=== PATIENT | male | born 1950 | race Caucasian/White ===

== ENCOUNTER → 2016-07-29 | Outpatient (CLI) | payer BC ==
[2016-07-29 08:45] LABS: CH 30.2; CHCM 33.8; HCT 42.7 % (39.0-53.0); HDW 2.89; HGB 14.2 gm/dL (13.0-17.5); MCH 29.9 pg (25.0-35.0); MCHC 33.2 g/dL (31.0-37.0); RBC 4.74 m/uL (4.30-5.90); WBC 8.2 k/uL (3.8-10.6)
[2016-07-29 09:46] LABS: ALT 43 U/L (21-72); AST 23 U/L (17-59); Alkaline Phosphatase 100 U/L (38-126); Blood Urea Nitrogen 28 mg/dL (9-20); Calcium 9.2 mg/dL (8.4-10.2); Carbon Dioxide 27 mmol/L (22-30); Chloride 101 mmol/L (98-107); Cholesterol 140 mg/dL (<200); Glucose 153 mg/dL (74-99); HDL Cholesterol 36 mg/dL (40-60); Non-African American GFR(MDRD) >60 (>60 ml/min/1.73 sqM); Potassium 4.5 mmol/L (3.5-5.1); Total Bilirubin 0.6 mg/dL (0.2-1.3); Total Protein 6.6 g/dL (6.3-8.2); Triglycerides 231 mg/dL (<150)
[2016-07-29 10:03] LABS: Erythrocyte Sedimentation Rate 6 mm/hr (0-15)
[2016-07-29 10:18] LABS: Prostate Specific Antigen 0.35 ng/mL (0.00-4.00)
[2016-07-29 10:24] LABS: Anion Gap 12 mmol/L; Sodium 140 mmol/L (137-145)
[2016-07-29 13:52] LABS: Hemoglobin A1C 7.5 % (4.2-6.1)
== END | disposition home or self-care (01) ==
LOC: LABWHC1 07:02
PROVIDERS: ATTEND Internal Medicine
DX: E11.9 Type 2 diabetes mellitus without complications (principal); I10 Essential (primary) hypertension
CPT/HCPCS: 36415; 80053; 80061; 83036; 84153; 84443; 85027; 85652

== ENCOUNTER → 2016-12-25 | Outpatient (CLI) | payer MEDICARE, BC ==
[2016-12-25 07:34] LABS: CHCM 33.1; HDW 2.93; HGB 14.1 gm/dL (13.0-17.5); MCH 29.3 pg (25.0-35.0); MCHC 32.1 g/dL (31.0-37.0); MCV 91.4 fL (80.0-100.0); Mean Platelet Volume 7.1; RBC 4.82 m/uL (4.30-5.90); RDW 15.6 % (11.5-15.5); WBC 7.3 k/uL (3.8-10.6)
[2016-12-25 11:46] LABS: ALT 50 U/L (21-72); AST 26 U/L (17-59); Alkaline Phosphatase 95 U/L (38-126); Anion Gap 10 mmol/L; Blood Urea Nitrogen 26 mg/dL (9-20); Calcium 9.3 mg/dL (8.4-10.2); Carbon Dioxide 25 mmol/L (22-30); Chloride 104 mmol/L (98-107); Cholesterol 145 mg/dL (<200); Glucose 159 mg/dL (74-99); HDL Cholesterol 34 mg/dL (40-60); Non-African American GFR(MDRD) >60 (>60 ml/min/1.73 sqM); Potassium 4.4 mmol/L (3.5-5.1); Sodium 139 mmol/L (137-145); Total Bilirubin 0.5 mg/dL (0.2-1.3); Total Protein 6.7 g/dL (6.3-8.2); Uric Acid 5.1 mg/dL (3.5-8.5)
[2016-12-25 12:08] LABS: Prostate Specific Antigen 0.32 ng/mL (0.00-4.00)
[2016-12-25 13:34] LABS: Erythrocyte Sedimentation Rate 8 mm/hr (0-15)
== END | disposition home or self-care (01) ==
LOC: LABWHC1 06:36
PROVIDERS: ATTEND Internal Medicine
DX: E78.2 Mixed hyperlipidemia (principal); E55.9 Vitamin D deficiency, unspecified; E11.9 Type 2 diabetes mellitus without complications; I10 Essential (primary) hypertension; Z12.5 Encounter for screening for malignant neoplasm of prostate
CPT/HCPCS: 36415; 80053; 80061; 82306; 84153; 84443; 84550; 85027; 85652

== ENCOUNTER → 2017-08-06 | Outpatient (CLI) | payer MEDICARE, BC ==
--- NOTE | 2017-08-06 07:21 | XR ---
EXAMINATION TYPE: XR forearm RT DATE OF EXAM: 08/06/2017 COMPARISON: NONE HISTORY: 66 year-old male right forearm pain, lump, proximal portion TECHNIQUE: 2 views FINDINGS: Degenerative change at the first CMC, first MCP, and triscaphe joints. Subtle lucency noted at the ul valdez proximal aspect of the lunate bone, possibly related to ulnar impaction syndrome. No significant elbow joint effusion. No acute fracture or dislocation. No periostitis or osteolysis. Mild degenerati ve spurring is noted at the elbow. IMPRESSION: 1. No acute osseous abnormality seen. 2. Degenerative changes at the base of the thumb and possible underlying ulnar impaction syndrome. 3. Mild degenerative spurring at the elbow.
[2017-08-06 09:18] LABS: Albumin 4.4 g/dL (3.5-5.0); Calcium 9.7 mg/dL (8.4-10.2); Phosphorus 4.2 mg/dL (2.5-4.5)
[2017-08-06 09:49] LABS: Prostate Specific Antigen 0.45 ng/mL (0.00-4.00)
== END | disposition home or self-care (01) ==
LOC: LABWHC1 06:35
PROVIDERS: ATTEND Internal Medicine
DX: M19.021 Primary osteoarthritis, right elbow (principal); M18.11 Unilateral primary osteoarthritis of first carpometacarpal joint, right hand; I25.10 Atherosclerotic heart disease of native coronary artery without angina pectoris; E11.9 Type 2 diabetes mellitus without complications
CPT/HCPCS: 36415; 80061; 80069; 83036; 84153; 84443

== ENCOUNTER → 2017-11-02 | Outpatient (CLI) | payer MEDICARE, BC ==
[2017-11-02 07:25] LABS: HCT 41.4 % (39.0-53.0); HGB 13.7 gm/dL (13.0-17.5); MCH 29.7 pg (25.0-35.0); MCHC 33.1 g/dL (31.0-37.0); MCV 89.8 fL (80.0-100.0); Mean Platelet Volume 6.6; Platelet Count 301 k/uL (150-450); RBC 4.61 m/uL (4.30-5.90); RDW 14.6 % (11.5-15.5)
[2017-11-02 08:35] LABS: Erythrocyte Sedimentation Rate 11 mm/hr (0-15)
[2017-11-02 10:03] LABS: Albumin 4.1 g/dL (3.5-5.0); Calcium 9.5 mg/dL (8.4-10.2); Potassium 3.9 mmol/L (3.5-5.1); Total Bilirubin 0.6 mg/dL (0.2-1.3); Total Protein 6.8 g/dL (6.3-8.2)
[2017-11-02 10:32] LABS: Prostate Specific Antigen 0.47 ng/mL (0.00-4.00)
== END | disposition home or self-care (01) ==
LOC: LABWHC1 06:41
PROVIDERS: ATTEND Internal Medicine
DX: E11.9 Type 2 diabetes mellitus without complications (principal); E78.5 Hyperlipidemia, unspecified
CPT/HCPCS: 36415; 80053; 80061; 84153; 84443; 85027; 85652

== ENCOUNTER → 2018-06-22 | Outpatient (CLI) | payer MEDICARE, BC ==
[2018-06-22 08:54] LABS: Basophils # (A) 0.1 k/uL (0-0.2); Basophils % (A) 1 %; Eosinophils # (A) 0.1 k/uL (0-0.7); Eosinophils % (A) 1 %; HCT 46.9 % (39.0-53.0); HGB 15.2 gm/dL (13.0-17.5); Lymphocytes % (A) 26 %; MCH 28.9 pg (25.0-35.0); MCHC 32.4 g/dL (31.0-37.0); MCV 89.2 fL (80.0-100.0); Mean Platelet Volume 6.4; Monocytes # (A) 0.4 k/uL (0-1.0); Monocytes % (A) 5 %; Neutrophils # (A) 4.9 k/uL (1.3-7.7); Neutrophils % (A) 65 %; Platelet Count 345 k/uL (150-450); RBC 5.26 m/uL (4.30-5.90); RDW 14.2 % (11.5-15.5); WBC 7.6 k/uL (3.8-10.6)
[2018-06-22 12:10] LABS: Erythrocyte Sedimentation Rate 8 mm/hr (0-15)
[2018-06-22 17:41] LABS: Albumin 4.5 g/dL (3.80-4.90); Albumin/Globulin Ratio 2.14 (1.60-3.17); Anion Gap 10.4 mmol/L (4.00-12.00); Calcium 9.7 mg/dL (8.7-10.3); Carbon Dioxide 27.6 mmol/L (21.6-31.8); Globulin 2.1 g/dL (1.6-3.3); Potassium 4.3 mmol/L (3.5-5.5); Total Bilirubin 0.6 mg/dL (0.2-1.2); Total Protein 6.6 g/dL (6.2-8.2); Uric Acid 6.1 mg/dL (3.7-8.7)
[2018-06-22 17:42] LABS: LDL Cholesterol,Calculated 36.2 mg/dL (0.0-131.0); VLDL Calculation 64.8 mg/dL (5.00-40.00)
[2018-06-22 17:48] LABS: Vitamin D 25 Hydroxy 27.3 ng/mL (30.0-100.0)
[2018-06-22 18:02] LABS: Hepatitis C IgG Antibody Non-Reactive (Non-Reactive)
[2018-06-22 20:28] LABS: Hemoglobin A1C 8.3 % (4.0-6.0)
== END | disposition home or self-care (01) ==
LOC: LABWHC1 08:03
PROVIDERS: ATTEND Internal Medicine
DX: E11.65 Type 2 diabetes mellitus with hyperglycemia (principal); E78.2 Mixed hyperlipidemia; E55.9 Vitamin D deficiency, unspecified; I10 Essential (primary) hypertension; R51 Headache; Z12.5 Encounter for screening for malignant neoplasm of prostate; Z13.0 Encounter for screening for diseases of the blood and blood-forming organs and certain disorders involving the immune mechanism
CPT/HCPCS: 36415; 80053; 80061; 82306; 83036; 84153; 84443; 84550; 85025; 85652; 86707; 86803

== ENCOUNTER → 2018-12-23 | Outpatient (CLI) | payer MEDICARE, BC ==
[2018-12-23 08:39] LABS: HCT 43.5 % (39.0-53.0); MCH 30.4 pg (25.0-35.0); MCHC 34.5 g/dL (31.0-37.0); MCV 88.1 fL (80.0-100.0); Mean Platelet Volume 5.8; Platelet Count 332 k/uL (150-450); RBC 4.93 m/uL (4.30-5.90); WBC 7.3 k/uL (3.8-10.6)
[2018-12-23 10:56] LABS: Erythrocyte Sedimentation Rate 8 mm/hr (0-15)
[2018-12-23 12:00] LABS: African American GFR (CKD) 72.1 (60.0-200.0); Albumin 4.5 g/dL (3.80-4.90); Albumin/Globulin Ratio 2.25 (1.60-3.17); Anion Gap 10.6 mmol/L (4.00-12.00); BUN/Creat Ratio 26.67 Ratio (12.00-20.00); Calcium 9.8 mg/dL (8.7-10.3); Carbon Dioxide 26.4 mmol/L (21.6-31.8); Potassium 4.1 mmol/L (3.5-5.5); Total Bilirubin 0.6 mg/dL (0.2-1.2); Total Protein 6.5 g/dL (6.2-8.2)
[2018-12-23 14:59] LABS: Hemoglobin A1C 7.5 % (4.0-6.0)
== END | disposition home or self-care (01) ==
LOC: LABWHC1 06:39
PROVIDERS: ATTEND Internal Medicine
DX: E78.2 Mixed hyperlipidemia (principal); I10 Essential (primary) hypertension; E11.65 Type 2 diabetes mellitus with hyperglycemia; R53.83 Other fatigue; R51 Headache; R39.12 Poor urinary stream
CPT/HCPCS: 36415; 80053; 83036; 84153; 84443; 85027; 85652

== ENCOUNTER 2019-10-03 06:45 | Day surgery (SDC) | payer MEDICARE, BC ==
[2019-10-01 10:25] VITALS: BMI 43.7
[~2019-10-03 06:45] MED LIST: LACTATED RINGERS 1,000 ML IV SCH; LIDOCAINE 1% (10MG/ML) FOR IV START INTRADERMA PRN
[2019-10-03 07:09] VITALS: TEMP 97.6
[2019-10-03 07:22] LABS: Glucose,Whole Blood 183 mg/dL (75-99)
[2019-10-03] MEDS ORDERED: PROPOFOL 10 MG/ML 20 ML VIAL IV ONE (07:42)
--- NOTE | 2019-10-03 08:03 | P.PCN ---
Date of Procedure: 10/03/19 Procedure(s) Performed: BRIEF HISTORY: Patient is a 68-year-old pleasant white male scheduled for an elective colonoscopy as a part of evaluation of prior history of colon polyps. His last colonoscopy was 5 years ago. PROCEDURE PERFORMED: Colonoscopy with snare polypectomy. PREOPERATIVE DIAGNOSIS: History of colon polyps. IV sedation per Anesthesia. PROCEDURE: After informed consent was obtained, the patient, was brought into the endoscopy unit. IV sedation was administered by Anesthesia under continuous monitoring. Digital rectal examination was normal. Initially the Olympus CF-160 flexible video colonoscope was then inserted in the rectum, gradually advanced into the cecum without any difficulty. Careful examination was performed as the scope was gradually being withdrawn. Ileocecal valve and the appendiceal orifice were visualized and appeared normal. Prep was excellent. Mucosa of the cecum appeared normal. Ascending colon there was a 6 mm sessile polyp removed by snare polypectomy. Rest of the ascending colon, transverse colon, descending colon, sigmoid colon, and rectum rectum appeared normal. In the distal rectum there was mucosal erythema friability and some granularity consistent with hyperplastic biopsies were done from this area. Moderate left-sided diverticulosis seen. Retroflexion was performed in the rectum and monitor hemorrhoids were seen. The patient tolerated the procedure well. IMPRESSION: 6 mm sessile ascending colon polyp status post polypectomy Scattered left-sided diverticula Mucosal erythema and friable in the distal rectum consistent with mild proctitis status post biopsy RECOMMENDATIONS: Findings of this examination were discussed with the patient his as well as his family.. He was advised to follow with the biopsy results. He can have a repeat colonoscopy in 5 years. The biopsies showed evidence of chronic proctitis he will be seen in the office for further management
[2019-10-03 08:21] VITALS: BP 129/70; PULSE 83; RESP 18
== END 2019-10-03 08:34 | disposition home or self-care (01) ==
LOC: ORWHC2ENDO 06:45
PROVIDERS: ATTEND Internal Medicine Gastroenterology
DX: Z12.11 Encounter for screening for malignant neoplasm of colon (principal); D12.2 Benign neoplasm of ascending colon; K52.9 Noninfective gastroenteritis and colitis, unspecified; K57.30 Diverticulosis of large intestine without perforation or abscess without bleeding; Z86.010 Personal history of colon polyps; I10 Essential (primary) hypertension; J44.9 Chronic obstructive pulmonary disease, unspecified; E78.5 Hyperlipidemia, unspecified; E11.9 Type 2 diabetes mellitus without complications; K21.9 Gastro-esophageal reflux disease without esophagitis; M19.90 Unspecified osteoarthritis, unspecified site; G47.33 Obstructive sleep apnea (adult) (pediatric); Z79.84 Long term (current) use of oral hypoglycemic drugs; Z79.51 Long term (current) use of inhaled steroids; Z79.899 Other long term (current) drug therapy; Z88.0 Allergy status to penicillin; Z88.2 Allergy status to sulfonamides; Z88.1 Allergy status to other antibiotic agents; Z88.8 Allergy status to other drugs, medicaments and biological substances; Z96.649 Presence of unspecified artificial hip joint; Z99.89 Dependence on other enabling machines and devices; Z98.890 Other specified postprocedural states
CPT/HCPCS: 88305; 45380; 45385; J2704

== ENCOUNTER → 2020-02-05 | Outpatient (CLI) | payer MEDICARE, BC ==
[2020-02-05 07:41] LABS: Basophils # (A) 0.1 k/uL (0-0.2); Basophils % (A) 1 %; Eosinophils # (A) 0.1 k/uL (0-0.7); Eosinophils % (A) 1 %; HCT 45.9 % (39.0-53.0); HGB 15.7 gm/dL (13.0-17.5); Lymphocytes # (A) 1.9 k/uL (1.0-4.8); Lymphocytes % (A) 26 %; MCH 30.8 pg (25.0-35.0); MCHC 34.3 g/dL (31.0-37.0); MCV 89.7 fL (80.0-100.0); Mean Platelet Volume 6.4; Monocytes # (A) 0.3 k/uL (0-1.0); Monocytes % (A) 5 %; Neutrophils # (A) 4.8 k/uL (1.3-7.7); Neutrophils % (A) 66 %; Platelet Count 313 k/uL (150-450); RBC 5.11 m/uL (4.30-5.90); RDW 13.5 % (11.5-15.5); WBC 7.3 k/uL (3.8-10.6)
[2020-02-05 09:51] LABS: Erythrocyte Sedimentation Rate 4 mm/hr (0-15)
[2020-02-05 16:35] LABS: Hemoglobin A1C 7.2 % (4.0-6.0)
[2020-02-05 20:36] LABS: African American GFR (CKD) 79.5 (60.0-200.0); Albumin 4.6 g/dL (3.80-4.90); Albumin/Globulin Ratio 2.09 (1.60-3.17); Anion Gap 12.6 mmol/L (4.00-12.00); BUN/Creat Ratio 24.55 Ratio (12.00-20.00); Calcium 9.9 mg/dL (8.7-10.3); Carbon Dioxide 25.4 mmol/L (21.6-31.8); Globulin 2.2 g/dL (1.6-3.3); Non-African American GFR(CKD) 68.6 (60.0-200.0); Potassium 3.8 mmol/L (3.5-5.5); Total Bilirubin 0.8 mg/dL (0.2-1.2); Total Protein 6.8 g/dL (6.2-8.2); Uric Acid 5.3 mg/dL (3.7-8.7)
[2020-02-05 22:35] LABS: PSA Annual Screen 0.3 ng/mL (0.0-4.0)
== END | disposition home or self-care (01) ==
LOC: LABWHC1 07:06
PROVIDERS: ATTEND Internal Medicine
DX: E11.65 Type 2 diabetes mellitus with hyperglycemia (principal); E78.2 Mixed hyperlipidemia; I10 Essential (primary) hypertension; R53.83 Other fatigue; R51.9 Headache, unspecified; M25.50 Pain in unspecified joint; R39.12 Poor urinary stream
CPT/HCPCS: 80053; 85652; 84443; 84550; 85025; 83036; 36415; G0103

== ENCOUNTER 2021-02-03 06:40 | Day surgery (SDC) | payer MEDICARE, BC ==
[2021-02-01 10:42] VITALS: BMI 40.8
[~2021-02-03 06:40] MED LIST changes: -LIDOCAINE 1% (10MG/ML) FOR IV START INTRADERMA PRN
[2021-02-03 07:29] VITALS: TEMP 97.3
[2021-02-03] MEDS ORDERED: LIDOCAINE 1% (10MG/ML) FOR IV START INTRADERMA ONE (07:36)
[2021-02-03] MEDS ORDERED: LIDOCAINE 1% INJ 10MG/ML (20 ML MDV) ONE (07:37)
[2021-02-03] MEDS ORDERED: PROPOFOL 10 MG/ML 20 ML VIAL IV ONE (07:37)
[2021-02-03 07:39] LABS: Glucose,Whole Blood 163 mg/dL (75-99)
--- NOTE | 2021-02-03 07:55 | P.PCN ---
Date of Procedure: 02/03/21 Procedure(s) Performed: BRIEF HISTORY: Patient is a 70-year-old, pleasant, white male scheduled for an upper endoscopy as a part of evaluation of long-standing history of GERD. However for the last 6 weeks he has been having was associated with dysphagia to liquids and solids.. PROCEDURE PERFORMED: Esophagogastroduodenoscopy with biopsy. PREOPERATIVE DIAGNOSIS: GERD/dysphagia. IV sedation per anesthesia. PROCEDURE: After informed consent was obtained, the patient was brought into the endoscopy unit. IV sedation was administered by Anesthesia under continuous monitoring. Initially the Olympus GIF-140 video endoscope was inserted into the mouth. Esophagus intubated without any difficulty. It was gradually advanced into the midesophagus where there was an ulcerated circumferential mass identified significant luminal narrowing. The scope was removed and a pediatric upper GI scope was introduced into the mouth and esophagus intubated without any difficulty and with gentle pressure I was able to advance the scope into the stomach. The stomach and duodenum and carefully examined. The bulb and the second part of the duodenum appeared normal. The scope at this time was withdrawn to the stomach, adequately insufflated with air, and upon careful examination, mucosa of the antrum, body, cardia and the fundus appeared normal. The scope was then withdrawn into the esophagus. The GE junction was located at 43 cm from the incisors. There was segmental ulcerated mass in the distal esophagus extending from 35-41 cm from the incisors with significant luminal narrowing and multiple biopsies were done from this area. In the proximal esophagus at 25 cm from the incisors there was a 2 cm friable polypoid lesion identified which was also biopsied. Patient tolerated the procedure well. IMPRESSION: 1. Distal esophageal ulcerated mass/esophageal stricture extending from 35-41 cm from the incisors with significant luminal narrowing status post-multiple biopsies. 2. 2 cm proximal esophageal polypoid lesion status post biopsies. RECOMMENDATIONS: The findings of this examination were discussed with the patient as well as his family. He was advised to follow with the biopsy results and he'll be seen in office in a week.. In the meantime he will continue with soft diet as well as liquids.
[2021-02-03 08:17] VITALS: BP 130/81
[2021-02-03 08:22] VITALS: PULSE 76; RESP 16
== END 2021-02-03 09:07 | disposition home or self-care (01) ==
LOC: ORWHC2ENDO 06:40
PROVIDERS: ATTEND Internal Medicine Gastroenterology
DX: K22.2 Esophageal obstruction (principal); K22.81 Esophageal polyp; K21.9 Gastro-esophageal reflux disease without esophagitis
CPT/HCPCS: 43239; 88305; 88342; 88341; J2001; J2704

== ENCOUNTER → 2021-02-25 | Outpatient (CLI) | payer MEDICARE, BC ==
--- NOTE | 2021-02-28 08:14 | PE ---
EXAMINATION TYPE: PET CT fusion skull to thigh DATE OF EXAM: 02/25/2021 COMPARISON: NONE HISTORY: Newly diagnosed esophageal cancer on biopsy February 03. TECHNIQUE: Following the intravenous administration of 11.54 mCi of F-18 FDG, whole body images are performed from the skull base to the midthigh. Images are reviewed on the computer in the coronal, a xial, and sagittal planes. Reconstructed rotating images are created on independent workstation and reviewed on the computer. A localization and attenuation correction CT is performed in conjunction with the PET scan. Blood glucose level equals 186. SCAN: Initial Scan FINDINGS: SKULL BASE AND NECK: Mildly hypermetabolic subcentimeter left supraclavicular lymph nodes axial imag e 66, max SUV is 2.97. Inferior to this there are abnormal supraclavicular lymph nodes at level of th yroid gland for reference there is left 10 x 9 mm lymph node axial image 82, max SUV is 5.23. On the right same image there is hypermetabolic enlarged 1.4 x 1.4 cm lymph node axial image 80, max SUV is 5.46. CHEST, MEDIASTINUM, AND HILAR REGION: Abnormal moderate to severe concentric wall thickening of the e sophagus begins below emeli with abnormal hypermetabolic uptake, abnormal uptake terminates before t he diaphragmatic hiatus, max SUV is 7.41. There is adjacent abnormal 3.0 x 1.8 cm subcarinal lymph no de axial image 118, max SUV is 5.71. There is adjacent abnormal left 2.1 x 1.4 cm paraEsophageal lymp h node axial image 117. There is abnormal adenopathy in the mediastinum anterior to the pulmonary root, max SUV is 7.74 on ax ial image 105. There is abnormal hypermetabolic 1.9 x 1.7 cm right hilar lymph node axial image 110, max SUV is 6.39. There are additional abnormal prominent mildly hypermetabolic right paratracheal lym ph nodes. For reference is a 1.4 x 1.3 cm lymph node axial image 101, the max SUV is 3.98. Abnormal mildly enlarged and prominent left axillary lymph nodes, for reference is 2.2 x 1.4 cm lymph node axial image 99, Max SUV is 8.04. ABDOMEN AND PELVIS: Abnormal 2.8 x 2.2 cm hypermetabolic left adrenal mass axial image 156, max SUV i s 8.65. Nonspecific diffuse bowel uptake. Normal excretion. No additional areas of abnormal hypermetabolic up take. OSSEOUS STRUCTURES: No abnormal hypermetabolic uptake. OTHER CT: Moderate calcified plaque in the medial deviated carotid bulbs. There is moderate to severe three-vessel coronary artery calcification. Some cortical thinning in both kidneys is present. There is a ventral wall hernia containing fat in t he lower abdomen extending to right of midline. Streak artifact from right hip arthroplasty somewhat limits evaluation of pelvic structures. Facet ar thropathy lower lumbar levels. Moderate calcified plaque of the aorta extends into branch vessels. IMPRESSION: Distal esophageal neoplasm confirmed. Abnormal thoracic and bilateral supraclavicular rojelio nopathy is noted as detailed above. Abnormal left adrenal suspected metastatic lesion. Nonspecific le ft axillary lymph nodes. Neoplastic involvement this level cannot be excluded.
== END | disposition home or self-care (01) ==
LOC: RADPETMAIN 12:37
PROVIDERS: ATTEND Internal Medicine Gastroenterology
DX: C15.5 Malignant neoplasm of lower third of esophagus (principal)
CPT/HCPCS: 78815; A9552

== ENCOUNTER 2021-03-01 18:13 | Inpatient (IN) | payer MEDICARE, BC ==
[2021-03-01] MEDS ORDERED: FAMOTIDINE 20 MG/2 ML VIAL IV STA (19:29)
[2021-03-01] MEDS ORDERED: HYDROmorphone 1 MG/ML 1 ML SYRINGE IVP STA (19:29)
[2021-03-01] MEDS ORDERED: SODIUM CHLORIDE 0.9% 1,000 ML IV STA ×2 (19:29)
[2021-03-01] MEDS ORDERED: ONDANSETRON 4 MG/2 ML VIAL IVP STA (19:29)
--- NOTE | 2021-03-01 19:32 | ED ---
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 He does state he feels dry in his dizzy when he gets up too fast from a sitting or lying position. No overt fevers chills or sweats. No other complaints at this time MD complaint: nausea, vomiting, other - Related Data Home Medications Medication Instructions Recorded Confirmed ALPRAZolam [Xanax] 0.25 mg PO TID PRN 01/28/16 03/01/21 Aspirin 325 mg PO DAILY 01/28/16 03/01/21 Furosemide [Lasix] 40 mg PO DAILY 01/28/16 03/01/21 Losartan/Hydrochlorothiazide 1 tab PO DAILY 01/28/16 03/01/21 [Hyzaar 100-25 Tablet] Metoprolol Succinate (ER) [Toprol 100 mg PO BID 01/28/16 03/01/21 XL] Optive Eye Drops 1 drop BOTH EYES BID 01/28/16 03/01/21 Potassium Chloride [Klor-Con 10 ER] 10 meq PO TID 01/28/16 03/01/21 Vit C/E/Zn/Coppr/Lutein/Zeaxan 1 cap PO BID 01/28/16 03/01/21 [Preservision Areds 2 Softgel] Vitamin A [Vitamin A (8,000 Units 8,000 unit PO DAILY 01/28/16 03/01/21 = 2,400 MCG)] amLODIPine [Norvasc] 5 mg PO DAILY@1000 01/28/16 03/01/21 Ascorbic Acid [Vitamin C] 1,000 mg PO DAILY 10/01/19 03/01/21 Calcium Carbonate [Tums] 1,000 mg PO ACHS PRN 10/01/19 03/01/21 Fexofenadine HCl [Rasheeda Allergy] 180 mg PO DAILY 10/01/19 03/01/21 Fluticasone/Salmeterol [Advair 1 puff INHALATION RT-Q12H 10/01/19 03/01/21 100-50 Diskus] Meloxicam [Mobic] 7.5 mg PO DAILY@1700 10/01/19 03/01/21 glipiZIDE [Glucotrol] 5 mg PO BID@0700,1700 10/01/19 03/01/21 Albuterol Sulfate [Ventolin HFA] 1 - 2 puff INHALATION RT-Q4H PRN 02/01/21 03/01/21 Chlorhexidine Gluconate [Peridex] 5 ml PO DAILY PRN 02/01/21 03/01/21 Clindamycin HCl 600 mg PO DIRECTED PRN 02/01/21 03/01/21 Ezetimibe [Zetia] 10 mg PO DAILY 02/01/21 03/01/21 Fluticasone Nasal [place] [Flonase 1 spray EA NOSTRIL BID 02/01/21 03/01/21 Nasal [place]] Omeprazole [PriLOSEC] 20 mg PO BID 02/01/21 03/01/21 Acetaminophen [Children's 960 mg PO Q8H PRN 03/01/21 03/01/21 Acetaminophen] Cholecalciferol [Vitamin D3 (25 50 mcg PO BID 03/01/21 03/01/21 Mcg = 1000 Iu)] Simvastatin [Zocor] 20 mg PO HS 03/01/21 03/01/21 metFORMIN HCL [Glucophage] 1,000 mg PO BID 03/01/21 03/01/21 Allergies Allergy/AdvReac Type Severity Reaction Status Date / Time cefazolin [From Kefzol] Allergy Rash/Hives Verified 03/01/21 21:19 enalaprilat [From Vasotec] Allergy Cough,rash Verified 03/01/21 21:19 Penicillins Allergy Rash/Hives Verified 03/01/21 21:19 prochlorperazine Allergy facial Verified 03/01/21 21:19 [From Compazine] twitching, loss of sensation of mouth Sulfa (Sulfonamide Allergy Rash/Hives Verified 03/01/21 21:19 Antibiotics) Review of Systems ROS Statement: Those systems with pertinent positive or pertinent negative responses have been documented in the HPI. ROS Other: All systems not noted in ROS Statement are negative. Past Medical History Past Medical History: Asthma, COPD, Diabetes Mellitus, GERD/Reflux, Hy perlipidemia, Hypertension, Osteoarthritis (OA), Sleep Apnea/CPAP/BIPAP Additional Past Medical History / Comment(s): uses CPAP, orthostatic vertigo, dysphagia, severe heartburn & burning for about 6 weeks,. hx colon polyps, year round allergies since childhood, pt. called, had some N/V episodes yesterday, not sure why, thinks has to do w/what's prompting EGD tomorrow, called his PCP who prescribed zofran & is feeling much better today History of Any Multi-Drug Resistant Organisms: None Reported Past Surgical History: Hernia Repair, Joint Replacement, Orthopedic Surgery Additional Past Surgical History / Comment(s): cystoscopy, both knees replaced, multiple arthroscopies knees, colonoscopies, dental implant, right hip replaced Past Anesthesia/Blood Transfusion Reactions: Previous Problems w/ Anesthesia, Family History of Problems w/ Anesthesia, Motion Sickness Additional Past Anesthesia/Blood Transfusion Reaction / Comment(s): very com bative when waking up from general anesthesia, anxious & agitated w/IV sedation,. mother ponv Past Psychological History: Anxiety Smoking Status: Never smoker Past Alcohol Use History: Rare Past Drug Use History: None Reported - Past Family History Father Brother(s) Family Medical History: Cancer, Deep Vein Thrombosis (DVT) Additional Family Medical History / Comment(s): colon cancer Mother Family Medical History: Cancer Additional Family Medical History / Comment(s): colon cancer General Exam - General Exam Comments Initial Comments: This is a well-developed well-nourished awake alert oriented times 3 male Limitations: no limitations General appearance: alert, anxious Head exam: Present: atraumatic, normocephalic, normal inspection Eye exam: Present: normal appearance, PERRL, EOMI. Absent: scleral icterus, conjunctival injection, periorbital swelling ENT exam: Present: mucous membranes dry Neck exam: Present: normal inspection, full ROM, other. Absent: tenderness, meningismus, lymphadenopathy Respiratory exam: Present: normal lung sounds bilaterally, decreased breath sounds. Absent: respiratory distress, wheezes, rales, rhonchi, stridor Cardiovascular Exam: Present: normal rhythm, tachycardia, normal heart sounds. Absent: systolic murmur, diastolic murmur, rubs, gallop, clicks GI/Abdominal exam: Present: soft, normal bowel sounds. Absent: distended, tenderness, guarding, rebound, rigid Rectal exam: Present: deferred Extremities exam: Present: normal inspection, full ROM, normal capillary refill. Absent: tenderness, pedal edema, joint swelling, calf tenderness Back exam: Present: normal inspection Neurological exam: Present: alert, oriented X3, CN II-XII intact Psychiatric exam: Present: normal affect, normal mood Skin exam: Present: warm, dry, intact, normal color. Absent: rash Course Vital Signs 03/01/21 18:38 Temperature 98.0 F Pulse Rate 122 H Respiratory 20 Rate Blood Pressure 111/73 O2 Sat by Pulse 98 Oximetry Medical Decision Making - Medical Decision Making I did discuss findings with patient has as well as with Dr. Soriano. Patient will be admitted with consultation by thoracic surgery and medical oncology. - Lab Data Result diagrams: 03/01/21 19:49 03/01/21 19:49 Lab Results 03/01/21 03/01/21 Range/Units 19:49 19:49 WBC 9.5 (3.8-10.6) k/uL RBC 5.31 (4.30-5.90) m/uL Hgb 16.7 (13.0-17.5) gm/dL Hct 47.9 (39.0-53.0) % MCV 90.2 (80.0-100.0) fL MCH 31.4 (25.0-35.0) pg MCHC 34.8 (31.0-37.0) g/dL RDW 14.2 (11.5-15.5) % Plt Count 289 (150-450) k/uL MPV 7.5 Neutrophils % 70 % Lymphocytes % 15 % Monocytes % 6 % Eosinophils % 5 % Basophils % 1 % Neutrophils # 6.7 (1.3-7.7) k/uL Lymphocytes # 1.5 (1.0-4.8) k/uL Monocytes # 0.6 (0-1.0) k/uL Eosinophils # 0.5 (0-0.7) k/uL Basophils # 0.1 (0-0.2) k/uL Sodium 133 L (137-145) mmol/L Potassium 3.7 (3.5-5.1) mmol/L Chloride 96 L (98-107) mmol/L Carbon Dioxide 19 L (22-30) mmol/L Anion Gap 18 mmol/L BUN 40 H (9-20) mg/dL Creatinine 1.82 H (0.66-1.25) mg/dL Est GFR (CKD-EPI)AfAm 43 (>60 ml/min/1.73 sqM) Est GFR (CKD-EPI)NonAf 37 (>60 ml/min/1.73 sqM) Glucose 202 H (74-99) mg/dL Calcium 9.8 (8.4-10.2) mg/dL Magnesium 1.5 L (1.6-2.3) mg/dL Total Bilirubin 1.6 H (0.2-1.3) mg/dL AST 28 (17-59) U/L ALT 18 (4-49) U/L Alkaline Phosphatase 110 (38-126) U/L Creatine Kinase 72 (55-170) U/L Total Protein 7.2 (6.3-8.2) g/dL Albumin 4.2 (3.5-5.0) g/dL - EKG Data EKG shows normal: sinus rhythm EKG Comments: Normal sinus rhythm of 100. Interval 150 to QRS 12 QT since QTC 438/565 PACs noted with aberrant conduction also asked he T-wave abnormalities - Radiology Data Radiology results: report reviewed (Patient reviewed no acute findings at this time), image reviewed Disposition Clinical Impression: Dehydration, Esophageal cancer, Failure to thrive in adult, Hypomagnesemia syndrome Disposition: ADMITTED IP TO THIS HOSP Condition: Fair Referrals: Vincent Fagan MD [Primary Care Provider] - 1-2 days
[2021-03-01 19:54] LABS: Basophils # (A) 0.1 k/uL (0-0.2); Basophils % (A) 1 %; Eosinophils # (A) 0.5 k/uL (0-0.7); Eosinophils % (A) 5 %; HCT 47.9 % (39.0-53.0); HGB 16.7 gm/dL (13.0-17.5); Lymphocytes # (A) 1.5 k/uL (1.0-4.8); Lymphocytes % (A) 15 %; MCH 31.4 pg (25.0-35.0); MCHC 34.8 g/dL (31.0-37.0); MCV 90.2 fL (80.0-100.0); Mean Platelet Volume 7.5; Monocytes # (A) 0.6 k/uL (0-1.0); Monocytes % (A) 6 %; Neutrophils # (A) 6.7 k/uL (1.3-7.7); Neutrophils % (A) 70 %; Platelet Count 289 k/uL (150-450); RBC 5.31 m/uL (4.30-5.90); RDW 14.2 % (11.5-15.5); WBC 9.5 k/uL (3.8-10.6)
[2021-03-01 20:04] LABS: Albumin 4.2 g/dL (3.5-5.0); Calcium 9.8 mg/dL (8.4-10.2); Magnesium 1.5 mg/dL (1.6-2.3); Potassium 3.7 mmol/L (3.5-5.1); Total Bilirubin 1.6 mg/dL (0.2-1.3); Total Protein 7.2 g/dL (6.3-8.2)
--- NOTE | 2021-03-01 20:31 | XR ---
EXAMINATION TYPE: XR chest 2V DATE OF EXAM: 03/01/2021 8:15 PM COMPARISON:Chest radiographs from 10/26/2011 TECHNIQUE: Frontal view of the chest. CLINICAL INDICATION:Male, 70 years old with history of Esophageal cancer; FINDINGS: Lungs/Pleura: Low lung volumes are present. There is no evidence of pleural effusion, focal consolida tion, or pneumothorax. Pulmonary vascularity: Unremarkable. Heart/mediastinum: Cardiomediastinal silhouette is unremarkable. Musculoskeletal:No acute osseous pathology. IMPRESSION: No acute cardiopulmonary disease/process or significant change from prior..
[2021-03-01] MEDS ORDERED: MAGNESIUM SULFATE-D5W PMX 1 GM in DEXTROSE/WATER 1 100ML.BAG IVPB ONE (21:54)
[2021-03-01] MEDS ORDERED: NALOXONE 0.4 MG/ML 1 ML VIAL IV PRN (21:58)
[2021-03-01] MEDS ORDERED: ALBUTEROL NEBULIZED 2.5 MG/3 ML INHALATION PRN (22:00)
[2021-03-01] MEDS: SODIUM CHLORIDE 0.9% 1,000 ML IV SCH (23:33)
[2021-03-02] MEDS: HYDROmorphone 1 MG/ML 1 ML SYRINGE IVP PRN ×5 (03:14→23:27)
[2021-03-02] MEDS: ONDANSETRON 4 MG/2 ML VIAL IVP PRN ×3 (03:14→19:33)
[2021-03-02] MEDS: SODIUM CHLORIDE 0.9% 1,000 ML IV SCH ×3 (06:21→21:03)
[2021-03-02] MEDS: SYMBICORT 80-4.5 MCG INHALER INHALATION SCH ×2 (07:15→19:47)
[2021-03-02] MEDS: FLUTICASONE 50MCG/SPRAY NASAL 16GM EA NOSTRIL SCH ×2 (09:15→21:02)
[2021-03-02] MEDS: PANTOPRAZOLE 40 MG/10 ML VIAL IV SCH ×2 (09:15→21:02)
[2021-03-02 09:42] LABS: Glucose,Whole Blood 184 mg/dL (75-99)
--- NOTE | 2021-03-02 10:01 | P.GSCN ---
<Pilar Sauceda - Last Filed: 03/02/21 09:56> History of Present Illness Consult date: 03/02/21 Reason for Consult: esophageal cancer Requesting physician: Fito Del Real History of present illness: This is a 70 year old gentleman who follows on an outpatient basis with Dr. Fagan. He has a previous medical history of HTN, HLD, BULMARO with home cpap use, GERD, DM, never smoker, rare etoh use, and significant family history of colon cancer. Apparently he has had a several week history of difficulty swallowing along with 60 pound weight loss since early January. 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 Further, a PET scan was completed 02/28/21 which confirmed distal esophageal neoplasm, with abnormal thoracic and bilateral supraclavicular adenopathy, and abnormal left adrenal suspected metastatic lesion. He was sent to the emergency room by his oncologist yesterday for continued and progressive nausea and vomiting with dehydration along with difficulty swallowing. In the ER his hgb 16.7, BUN 40, Creat 1.82, Mg 1.5, CK 72. CXR demonstrated low lung volumes but no acute process. He was admitted and placed on IV fluids and clear liquid diet with consultation placed to oncology and thoracic surgery due to his new diagnosis of esophageal cancer. Review of Systems Review of systems was completed and was negative except as noted. - Constitutional Reports as per HPI, Reports weight loss - Gastrointestinal Reports as per HPI, Reports nausea, Reports vomiting Past Medical History Past Medical History: Asthma, Cancer, COPD, Diabetes Mellitus, GERD/Reflux, Hyperlipidemia, Hypertension, Osteoarthritis (OA), Sleep Apnea/CPAP/BIPAP Additional Past Medical History / Comment(s): uses CPAP, orthostatic vertigo, dysphagia, severe heartburn & burning for about 6 weeks,. hx colon polyps, year round allergies since childhood History of Any Multi-Drug Resistant Organisms: None Reported Past Surgical History: Hernia Repair, Joint Replacement, Orthopedic Surgery Additional Past Surgical History / Comment(s): cystoscopy, both knees replaced, multiple arthroscopies knees, colonoscopies, dental implant, right hip replaced Past Anesthesia/Blood Transfusion Reactions: Previous Problems w/ Anesthesia, Family History of Problems w/ Anesthesia, Motion Sickness Additional Past Anesthesia/Blood Transfusion Reaction / Comm: very combative when waking up from general anesthesia, anxious & agitated w/IV sedation,. mother ponv Past Psychological History: Anxiety Smoking Status: Never smoker Past Alcohol Use History: Rare Past Drug Use History: None Reported - Past Family History Father Brother(s) Family Medical History: Cancer, Deep Vein Thrombosis (DVT) Additional Family Medical History / Comment(s): colon cancer Mother Family Medical History: Cancer Additional Family Medical History / Comment(s): colon cancer Medications and Allergies Home Medications Medication Instructions Recorded Confirmed Type ALPRAZolam [Xanax] 0.25 mg PO TID PRN 01/28/16 03/01/21 History Aspirin 325 mg PO DAILY 01/28/16 03/01/21 History Furosemide [Lasix] 40 mg PO DAILY 01/28/16 03/01/21 History Losartan/Hydrochlorothiazide 1 tab PO DAILY 01/28/16 03/01/21 History [Hyzaar 100-25 Tablet] Metoprolol Succinate (ER) [Toprol 100 mg PO BID 01/28/16 03/01/21 History XL] Optive Eye Drops 1 drop BOTH EYES BID 01/28/16 03/01/21 History Potassium Chloride [Klor-Con 10 ER] 10 meq PO TID 01/28/16 03/01/21 History Vit C/E/Zn/Coppr/Lutein/Zeaxan 1 cap PO BID 01/28/16 03/01/21 History [Preservision Areds 2 Softgel] Vitamin A [Vitamin A (8,000 Units 8,000 unit PO DAILY 01/28/16 03/01/21 History = 2,400 MCG)] amLODIPine [Norvasc] 5 mg PO DAILY@1000 01/28/16 03/01/21 History Ascorbic Acid [Vitamin C] 1,000 mg PO DAILY 10/01/19 03/01/21 History Calcium Carbonate [Tums] 1,000 mg PO ACHS PRN 10/01/19 03/01/21 History Fexofenadine HCl [Rasheeda Allergy] 180 mg PO DAILY 10/01/19 03/01/21 History Fluticasone/Salmeterol [Advair 1 puff INHALATION RT-Q12H 10/01/19 03/01/21 History 100-50 Diskus] Meloxicam [Mobic] 7.5 mg PO DAILY@1700 10/01/19 03/01/21 History glipiZIDE [Glucotrol] 5 mg PO BID@0700,1700 10/01/19 03/01/21 History Albuterol Sulfate [Ventolin HFA] 1 - 2 puff INHALATION RT-Q4H PRN 02/01/21 03/01/21 History Chlorhexidine Gluconate [Peridex] 5 ml PO DAILY PRN 02/01/21 03/01/21 History Clindamycin HCl 600 mg PO DIRECTED PRN 02/01/21 03/01/21 History Ezetimibe [Zetia] 10 mg PO DAILY 02/01/21 03/01/21 History Fluticasone Nasal [place] [Flonase 1 spray EA NOSTRIL BID 02/01/21 03/01/21 History Nasal [place]] Omeprazole [PriLOSEC] 20 mg PO BID 02/01/21 03/01/21 History Acetaminophen [Children's 960 mg PO Q8H PRN 03/01/21 03/01/21 History Acetaminophen] Cholecalciferol [Vitamin D3 (25 50 mcg PO BID 03/01/21 03/01/21 History Mcg = 1000 Iu)] Simvastatin [Zocor] 20 mg PO HS 03/01/21 03/01/21 History metFORMIN HCL [Glucophage] 1,000 mg PO BID 03/01/21 03/01/21 History Allergies Allergy/AdvReac Type Severity Reaction Status Date / Time cefazolin [From Kefzol] Allergy Rash/Hives Verified 03/01/21 21:19 enalaprilat [From Vasotec] Allergy Cough,rash Verified 03/01/21 21:19 Penicillins Allergy Rash/Hives Verified 03/01/21 21:19 prochlorperazine Allergy facial Verified 03/01/21 21:19 [From Compazine] twitching, loss of sensation of mouth Sulfa (Sulfonamide Allergy Rash/Hives Verified 03/01/21 21:19 Antibiotics) Surgical - Exam Vital Signs Temp Pulse Resp BP Pulse Ox 98.0 F 122 H 20 111/73 98 03/01/21 18:38 03/01/21 18:38 03/01/21 18:38 03/01/21 18:38 03/01/21 18:38 CONSTITUTIONAL: Awake and alert, cooperative, well-developed, well-nourished, no pain, no acute distress EYES: Pupils equal, round, reactive to light, normal ocular movement ENT: Moist mucous membranes without oral lesions present NECK: No masses, no bruits, trachea midline RESPIRATORY: Lungs sounds clear to auscultation bilaterally. Respirations even, nonlabored. Currently on room air with oxygen saturation 96%. Strong cough. No chest wall deformities. No clubbing or cyanosis present CARDIOVASCULAR: S1, S2 present. Regular rate and rhythm. Palpable peripheral pulses bilaterally. No edema present. No calf pain or tenderness noted. GASTROINTESTINAL: Abdomen soft, nontender, nondistended without masses or organomegaly noted. There is no rebound or guarding present. Active bowel sounds present 4 quadrants. GENITOURINARY: Deferred INTEGUMENTARY: Skin is warm and dry with evidence of good perfusion. NEUROLOGIC: Cranial nerves II through XII intact, normal coordination, no obvious motor or sensory deficits, speech is normal MUSKULOSKELETAL: Able to move all extremities, strength equal bilaterally, normal posture PSYCHIATRIC: Alert and oriented to person place and time, flat affect, intact judgment and insight Results - Labs 03/01/21 19:49 03/01/21 19:49 Abnormal Lab Results - Last 24 Hours (Table) 03/01/21 Range/Units 19:49 Sodium 133 L (137-145) mmol/L Chloride 96 L (98-107) mmol/L Carbon Dioxide 19 L (22-30) mmol/L BUN 40 H (9-20) mg/dL Creatinine 1.82 H (0.66-1.25) mg/dL Glucose 202 H (74-99) mg/dL Magnesium 1.5 L (1.6-2.3) mg/dL Total Bilirubin 1.6 H (0.2-1.3) mg/dL Diabetes panel 03/01/21 Range/Units 19:49 Sodium 133 L (137-145) mmol/L Potassium 3.7 (3.5-5.1) mmol/L Chloride 96 L (98-107) mmol/L Carbon Dioxide 19 L (22-30) mmol/L BUN 40 H (9-20) mg/dL Creatinine 1.82 H (0.66-1.25) mg/dL Glucose 202 H (74-99) mg/dL Calcium 9.8 (8.4-10.2) mg/dL AST 28 (17-59) U/L ALT 18 (4-49) U/L Alkaline Phosphatase 110 (38-126) U/L Total Protein 7.2 (6.3-8.2) g/dL Albumin 4.2 (3.5-5.0) g/dL Calcium panel 03/01/21 Range/Units 19:49 Calcium 9.8 (8.4-10.2) mg/dL Albumin 4.2 (3.5-5.0) g/dL Pituitary panel 03/01/21 Range/Units 19:49 Sodium 133 L (137-145) mmol/L Potassium 3.7 (3.5-5.1) mmol/L Chloride 96 L (98-107) mmol/L Carbon Dioxide 19 L (22-30) mmol/L BUN 40 H (9-20) mg/dL Creatinine 1.82 H (0.66-1.25) mg/dL Glucose 202 H (74-99) mg/dL Calcium 9.8 (8.4-10.2) mg/dL Adrenal panel 03/01/21 Range/Units 19:49 Sodium 133 L (137-145) mmol/L Potassium 3.7 (3.5-5.1) mmol/L Chloride 96 L (98-107) mmol/L Carbon Dioxide 19 L (22-30) mmol/L BUN 40 H (9-20) mg/dL Creatinine 1.82 H (0.66-1.25) mg/dL Glucose 202 H (74-99) mg/dL Calcium 9.8 (8.4-10.2) mg/dL Total Bilirubin 1.6 H (0.2-1.3) mg/dL AST 28 (17-59) U/L ALT 18 (4-49) U/L Alkaline Phosphatase 110 (38-126) U/L Total Protein 7.2 (6.3-8.2) g/dL Albumin 4.2 (3.5-5.0) g/dL - Imaging Chest x-ray: report reviewed, image reviewed EKG: image reviewed Additional studies: PET scan reviewed with Dr. Yarbrough Assessment and Plan Assessment: 1. Proximal and distal invasive poorly differentiated adenocarcinoma of the esophagus per EGD pathology from 02/03/21 2. Distal esophageal neoplasm, with abnormal thoracic and bilateral supraclavicular adenopathy, and abnormal left adrenal suspected metastatic lesion on PET 02/28/21 3. History of 60 pound weight loss since early January 2021 4. Progressive nausea and vomitting, hypomagnesemia, dehydration this admission 5. GERD 6. History of HTN 7. History of HLD 8. BULMARO with home cpap use 9. DM 10. Never smoker 11. Rare etoh use 12. Significant family history of colon cancer Plan: The patient was seen and examined at the bedside with Dr. Yarbrough. Chart/diagnostics reviewed including recent PET scan and pathology from EGD. The patient was given the option of PEG tube placement for nutrition versus esophageal stent. He was informed that esophageal stent will likely increase his reflux. The option has been left to the patient. Will discuss with Dr. Umaña. Medical management of other comorbidities per primary care, oncology. More recommendations to follow Thank you for this consult. Please call us with any further questions Time with Patient: Greater than 30 <Mandeep Yarbrough R - Last Filed: 03/02/21 14:32> Surgical - Exam Vital Signs Temp Pulse Resp BP Pulse Ox 98.0 F 122 H 20 111/73 98 03/01/21 18:38 03/01/21 18:38 03/01/21 18:38 03/01/21 18:38 03/01/21 18:38 Results - Labs 03/01/21 19:49 03/02/21 10:52 Abnormal Lab Results - Last 24 Hours (Table) 03/01/21 03/02/21 03/02/21 Range/Units 19:49 09:41 10:52 Sodium 133 L 136 L (137-145) mmol/L Potassium 3.4 L (3.5-5.1) mmol/L Chloride 96 L (98-107) mmol/L Carbon Dioxide 19 L (22-30) mmol/L BUN 40 H 35 H (9-20) mg/dL Creatinine 1.82 H 1.35 H (0.66-1.25) mg/dL Glucose 202 H 206 H (74-99) mg/dL POC Glucose (mg/dL) 184 H (75-99) mg/dL Magnesium 1.5 L (1.6-2.3) mg/dL Total Bilirubin 1.6 H (0.2-1.3) mg/dL 03/02/21 Range/Units 11:55 Sodium (137-145) mmol/L Potassium (3.5-5.1) mmol/L Chloride (98-107) mmol/L Carbon Dioxide (22-30) mmol/L BUN (9-20) mg/dL Creatinine (0.66-1.25) mg/dL Glucose (74-99) mg/dL POC Glucose (mg/dL) 178 H (75-99) mg/dL Magnesium (1.6-2.3) mg/dL Total Bilirubin (0.2-1.3) mg/dL Diabetes panel 03/01/21 03/02/21 Range/Units 19:49 10:52 Sodium 133 L 136 L (137-145) mmol/L Potassium 3.7 3.4 L (3.5-5.1) mmol/L Chloride 96 L 101 (98-107) mmol/L Carbon Dioxide 19 L 24 (22-30) mmol/L BUN 40 H 35 H (9-20) mg/dL Creatinine 1.82 H 1.35 H (0.66-1.25) mg/dL Glucose 202 H 206 H (74-99) mg/dL Calcium 9.8 9.0 (8.4-10.2) mg/dL AST 28 25 (17-59) U/L ALT 18 16 (4-49) U/L Alkaline Phosphatase 110 100 (38-126) U/L Total Protein 7.2 6.4 (6.3-8.2) g/dL Albumin 4.2 3.6 (3.5-5.0) g/dL Calcium panel 03/01/21 03/02/21 Range/Units 19:49 10:52 Calcium 9.8 9.0 (8.4-10.2) mg/dL Albumin 4.2 3.6 (3.5-5.0) g/dL Pituitary panel 03/01/21 03/02/21 Range/Units 19:49 10:52 Sodium 133 L 136 L (137-145) mmol/L Potassium 3.7 3.4 L (3.5-5.1) mmol/L Chloride 96 L 101 (98-107) mmol/L Carbon Dioxide 19 L 24 (22-30) mmol/L BUN 40 H 35 H (9-20) mg/dL Creatinine 1.82 H 1.35 H (0.66-1.25) mg/dL Glucose 202 H 206 H (74-99) mg/dL Calcium 9.8 9.0 (8.4-10.2) mg/dL Adrenal panel 03/01/21 03/02/21 Range/Units 19:49 10:52 Sodium 133 L 136 L (137-145) mmol/L Potassium 3.7 3.4 L (3.5-5.1) mmol/L Chloride 96 L 101 (98-107) mmol/L Carbon Dioxide 19 L 24 (22-30) mmol/L BUN 40 H 35 H (9-20) mg/dL Creatinine 1.82 H 1.35 H (0.66-1.25) mg/dL Glucose 202 H 206 H (74-99) mg/dL Calcium 9.8 9.0 (8.4-10.2) mg/dL Total Bilirubin 1.6 H 1.3 (0.2-1.3) mg/dL AST 28 25 (17-59) U/L ALT 18 16 (4-49) U/L Alkaline Phosphatase 110 100 (38-126) U/L Total Protein 7.2 6.4 (6.3-8.2) g/dL Albumin 4.2 3.6 (3.5-5.0) g/dL
--- NOTE | 2021-03-02 10:25 | P.HPIM ---
History of Present Illness H&P Date: 03/02/21 Chief Complaint: Nausea, vomiting failure to thrive This is a 70-year-old male patient of Dr. Fagan who presented to ER with concerns of poor oral intake and recent diagnosis of esophageal cancer. Patient reports that he had prolonged difficulty with swallowing and a 60 pound weight loss in December and underwent EGD in January with pathology consistent with invasive poorly differentiated adenocarcinoma esophagus. Patient underwent a PET scan is completed on 02/28/2021 which confirmed distal esophageal neoplasm with abnormal thoracic and bilateral separate clavicle 18 of the and abnormal left adrenal suspected metastatic lesion. Patient reports that he has been unable to keep down any fluids or food at home which prompted his oncologist to go to ER for further evaluation. Additional medical history includes asthma, COPD, diabetes mellitus, hyperlipidemia, hypertension, osteoarthritis and sleep apnea. Patient was found to have a creatinine at 1.82 and bun 40. Magnesium also low at 1.5. Patient has been started on IV fluids. At this time oncology services and cardiothoracic surgery has been consulted. Repeat labs have been ordered Review of Systems Please refer to HPI otherwise unremarkable Past Medical History Past Medical History: Asthma, Cancer, COPD, Diabetes Mellitus, GERD/Reflux, Hyperlipidemia, Hypertension, Osteoarthritis (OA), Sleep Apnea/CPAP/BIPAP Additional Past Medical History / Comment(s): uses CPAP, orthostatic vertigo, dysphagia, severe heartburn & burning for about 6 weeks,. hx colon polyps, year round allergies since childhood History of Any Multi-Drug Resistant Organisms: None Reported Past Surgical History: Hernia Repair, Joint Replacement, Orthopedic Surgery Additional Past Surgical History / Comment(s): cystoscopy, both knees replaced, multiple arthroscopies knees, colonoscopies, dental implant, right hip replaced Past Anesthesia/Blood Transfusion Reactions: Previous Problems w/ Anesthesia, Family History of Problems w/ Anesthesia, Motion Sickness Additional Past Anesthesia/Blood Transfusion Reaction / Comment(s): very combative when waking up from general anesthesia, anxious & agitated w/IV sedation,. mother ponv Past Psychological History: Anxiety Smoking Status: Never smoker Past Alcohol Use History: Rare Past Drug Use History: None Reported - Past Family History Father Brother(s) Family Medical History: Cancer, Deep Vein Thrombosis (DVT) Additional Family Medical History / Comment(s): colon cancer Mother Family Medical History: Cancer Additional Family Medical History / Comment(s): colon cancer Medications and Allergies Home Medications Medication Instructions Recorded Confirmed Type ALPRAZolam [Xanax] 0.25 mg PO TID PRN 01/28/16 03/01/21 History Aspirin 325 mg PO DAILY 01/28/16 03/01/21 History Furosemide [Lasix] 40 mg PO DAILY 01/28/16 03/01/21 History Losartan/Hydrochlorothiazide 1 tab PO DAILY 01/28/16 03/01/21 History [Hyzaar 100-25 Tablet] Metoprolol Succinate (ER) [Toprol 100 mg PO BID 01/28/16 03/01/21 History XL] Optive Eye Drops 1 drop BOTH EYES BID 01/28/16 03/01/21 History Potassium Chloride [Klor-Con 10 ER] 10 meq PO TID 01/28/16 03/01/21 History Vit C/E/Zn/Coppr/Lutein/Zeaxan 1 cap PO BID 01/28/16 03/01/21 History [Preservision Areds 2 Softgel] Vitamin A [Vitamin A (8,000 Units 8,000 unit PO DAILY 01/28/16 03/01/21 History = 2,400 MCG)] amLODIPine [Norvasc] 5 mg PO DAILY@1000 01/28/16 03/01/21 History Ascorbic Acid [Vitamin C] 1,000 mg PO DAILY 10/01/19 03/01/21 History Calcium Carbonate [Tums] 1,000 mg PO ACHS PRN 10/01/19 03/01/21 History Fexofenadine HCl [Rasheeda Allergy] 180 mg PO DAILY 10/01/19 03/01/21 History Fluticasone/Salmeterol [Advair 1 puff INHALATION RT-Q12H 10/01/19 03/01/21 History 100-50 Diskus] Meloxicam [Mobic] 7.5 mg PO DAILY@1700 10/01/19 03/01/21 History glipiZIDE [Glucotrol] 5 mg PO BID@0700,1700 10/01/19 03/01/21 History Albuterol Sulfate [Ventolin HFA] 1 - 2 puff INHALATION RT-Q4H PRN 02/01/21 03/01/21 History Chlorhexidine Gluconate [Peridex] 5 ml PO DAILY PRN 02/01/21 03/01/21 History Clindamycin HCl 600 mg PO DIRECTED PRN 02/01/21 03/01/21 History Ezetimibe [Zetia] 10 mg PO DAILY 02/01/21 03/01/21 History Fluticasone Nasal [place] [Flonase 1 spray EA NOSTRIL BID 02/01/21 03/01/21 History Nasal [place]] Omeprazole [PriLOSEC] 20 mg PO BID 02/01/21 03/01/21 History Acetaminophen [Children's 960 mg PO Q8H PRN 03/01/21 03/01/21 History Acetaminophen] Cholecalciferol [Vitamin D3 (25 50 mcg PO BID 03/01/21 03/01/21 History Mcg = 1000 Iu)] Simvastatin [Zocor] 20 mg PO HS 03/01/21 03/01/21 History metFORMIN HCL [Glucophage] 1,000 mg PO BID 03/01/21 03/01/21 History Allergies Allergy/AdvReac Type Severity Reaction Status Date / Time cefazolin [From Kefzol] Allergy Rash/Hives Verified 03/01/21 21:19 enalaprilat [From Vasotec] Allergy Cough,rash Verified 03/01/21 21:19 Penicillins Allergy Rash/Hives Verified 03/01/21 21:19 prochlorperazine Allergy facial Verified 03/01/21 21:19 [From Compazine] twitching, loss of sensation of mouth Sulfa (Sulfonamide Allergy Rash/Hives Verified 03/01/21 21:19 Antibiotics) Physical Exam Vitals: Vital Signs Temp Pulse Pulse Pulse Resp BP BP 03/02/21 07:08 97.5 F L 104 H 20 123/76 03/02/21 07:03 97.5 F L 104 H 20 123/76 03/02/21 04:31 97.5 F L 104 H 18 141/84 03/02/21 00:30 122 H 18 03/02/21 00:04 98.3 F 97 18 139/76 03/01/21 18:38 98.0 F 122 H 20 111/73 Pulse Ox 03/02/21 07:08 96 03/02/21 07:03 96 03/02/21 04:31 96 03/02/21 00:30 03/02/21 00:04 96 03/01/21 18:38 98 Intake and Output 03/01/21 03/02/21 03/02/21 22:59 06:59 14:59 Intake Total 1560 Balance 1560 Intake: Intake, IV Titration 1560 Amount Sodium Chloride 0.9% 1, 1560 000 ml @ 130 mls/hr IV . Q7H42M BINU Rx#:[id number] Other: Voiding Method Toilet # Voids 1 Weight 130.181 kg 130.181 kg Head normocephalic Neck supple Lungs clear to auscultation bilaterally no wheezing or crackles Heart regular rate and rhythm S1-S2, no rub or gallop Abdomen is soft nontender nondistended positive bowel sounds no hepatosplenomegaly Extremities no edema Neuro alert and orientated to 3 Results CBC & Chem 7: 03/01/21 19:49 03/01/21 19:49 Labs: Abnormal Lab Results - Last 24 Hours (Table) 03/01/21 03/02/21 Range/Units 19:49 09:41 Sodium 133 L (137-145) mmol/L Chloride 96 L (98-107) mmol/L Carbon Dioxide 19 L (22-30) mmol/L BUN 40 H (9-20) mg/dL Creatinine 1.82 H (0.66-1.25) mg/dL Glucose 202 H (74-99) mg/dL POC Glucose (mg/dL) 184 H (75-99) mg/dL Magnesium 1.5 L (1.6-2.3) mg/dL Total Bilirubin 1.6 H (0.2-1.3) mg/dL Thrombosis Risk Factor Assmnt - Choose All That Apply Each Risk Factor Represents 2 Points: Age 61-74 years Thrombosis Risk Factor Assessment Total Risk Factor Score: 2 Thrombosis Risk Factor Assessment Level: Low Risk Assessment and Plan Assessment: Progressive nausea and vomiting secondary to esophageal cancer Dehydration with acute kidney injury Recent diagnosis of adenocarcinoma of the esophagus per EGD on 02/03/2021 Suspected metastatic lesion on left adrenal and abnormal thoracic bilateral sub- clavicle adenopathy seen on PET scan on 02/28/2021 History of 60 pound weight loss since early January 2021 History of essential hypertension History of GERD Sleep apnea DVT prophylaxis SCDs due to possible surgical intervention. GI prophylaxis Protonix Continue IV hydration Oncology and cardiothoracic surgery consulted Repeat labs ordered Time with Patient: Greater than 30 (Greater than 60% of the total time spent in counseling and coordination of care)
[2021-03-02 11:21] LABS: ALT 16 U/L (4-49); AST 25 U/L (17-59); African American GFR (CKD) 61 (>60 ml/min/1.73 sqM); Albumin 3.6 g/dL (3.5-5.0); Albumin/Globulin Ratio 1.3; Alkaline Phosphatase 100 U/L (38-126); Anion Gap 11 mmol/L; Blood Urea Nitrogen 35 mg/dL (9-20); Carbon Dioxide 24 mmol/L (22-30); Chloride 101 mmol/L (98-107); Globulin 2.8 g/dL; Glucose 206 mg/dL (74-99); Magnesium 1.8 mg/dL (1.6-2.3); Non-African American GFR(CKD) 53 (>60 ml/min/1.73 sqM); Sodium 136 mmol/L (137-145); Total Bilirubin 1.3 mg/dL (0.2-1.3); Total Protein 6.4 g/dL (6.3-8.2)
[2021-03-02 11:28] LABS: Potassium 3.4 mmol/L (3.5-5.1)
[2021-03-02 11:56] LABS: Glucose,Whole Blood 178 mg/dL (75-99)
[2021-03-02] MEDS: INSULIN ASPART (NovoLOG) 100 UNIT/ML VIAL SQ SCH ×3 (13:01→21:02)
--- NOTE | 2021-03-02 14:00 | P.CONS ---
History of Present Illness - Reason for Consult Consult date: 03/02/21 Esophageal Cancer Requesting physician: Fito Del Real - Chief Complaint Dehydration - History of Present Illness Mr Pimentel a pleasant white male, with multiple but well-controlled medical problems at baseline. The patient has a long-standing history of GERD for many years. since early to mid December, he developed recurrent in swallowing with solids and then subsequently to liquids. This was rapidly progressive, due to which he was referred to GI by his PCP. He had an EGD on 02/03/21. This showed a distal esophageal ulcerated mass with stricturing extending from 35-41 cm from the incisors with significant luminal narrowing. There is also 2 cm proximal esophageal polypoid lesion at 25 cm. Biopsies from both areas came back positive for invasive poorly differentiated adenocarcinoma. CBC was normal with hemoglobin 15.7. Chem panel showed calcium of 10.4 and was 136 but was otherwise normal. The patient was then referred here for further evaluation and to conditions. The case was discussed in detail with the GI service and a PET scan was recommended and an subsequent he performed on 02/25/21. This showed mildly hypermetabolic subcentimeter left supraclavicular nodes, SUV 2.97, additional nodes at the level of the thyroid largest 1 x 0.9 cm SUV 5.23. There was a right supraclavicular node 1.4 cm with SUV 5.46. Moderate to severe concentric wall thickening with abnormal uptake noted starting this would've the emeli. Abnormal subcarinal adenopathy and paraesophageal adenopathy, 3 cm and 2.1 cm noted. There was also abnormal adenopathy in the mediastinum anterior to the pulmonary root . 1.9 cm right hilar node and additional abnormal right paratracheal nodes largest 1.4 cm on hypermetabolic also effect. In addition there was concern for more distant disease with mildly enlarged and prominent left axillary nodes 2.2 cm with SUV 8.04, and a 2.8 cm left renal mass SUV 8.65. Patient denied any prior history of malignancy. He had never needed to have an EGD before. He was seen in office for initial consultation with Dr. Maximo Umaña. the patient is being seen for new diagnosis of adenocarcinoma of the esophagus. While he has multiple medical issues, including sleep apnea, and diabetes and tachycardia, these are well controlled at baseline. However since onset of symptoms he has had rapid progression in terms of dysphagia, leading to very rapid weight loss, dehydration and marked weakness. Oral intake is very minimal. He is having significant difficulty even handling his own secretions at this time - The patient's pathology and stage based on PET scan were discussed with him. Unfortunately he appears to have fairly advanced disease, with significant concern for stage IV disease based on the left axillary adenopathy in the left adrenal mass. Even without the radius, the extent of deuce involvement on PET scan could make a more difficult candidate for concurrent chemoradiation and certainly for any kind of definitive surgery. Therefore at this time it does appear more likely that his cancer would not be curable and the objective of treatment would be prolongation of life and palliation of symptoms. - The patient is not a candidate for any aggressive active treatment at this time, given his symptoms related to the cancer, dehydration and poor nutritional status. This will need to be stabilized before any specific treatment options can be initiated. He will therefore directed toward the emergency room. The case was discussed in detail with the ER physician. The patient will be admitted for IV hydration. We will discussed the [facility] to see if possible to place an esophageal stent. We will also check into feeding tube placement if appropriate and needed. In addition to IV hydration the patient will also benefit from short-term TPN given his rapid compromise. - Biomarker testing in the meantime will be ordered on his tumor specimen. Procedure notes, pathology reports and PET scan reports reviewed and summarized above. Case discussed in detail with the GI, and with the ER physician. Review of Systems All systems: negative Constitutional: Reports as per HPI Past Medical History Past Medical History: Asthma, Cancer, COPD, Diabetes Mellitus, GERD/Reflux, Hyperlipidemia, Hypertension, Osteoarthritis (OA), Sleep Apnea/CPAP/BIPAP Additional Past Medical History / Comment(s): uses CPAP, orthostatic vertigo, dysphagia, severe heartburn & burning for about 6 weeks,. hx colon polyps, year round allergies since childhood History of Any Multi-Drug Resistant Organisms: None Reported Past Surgical History: Hernia Repair, Joint Replacement, Orthopedic Surgery Additional Past Surgical History / Comment(s): cystoscopy, both knees replaced, multiple arthroscopies knees, colonoscopies, dental implant, right hip replaced Past Anesthesia/Blood Transfusion Reactions: Previous Problems w/ Anesthesia, Family History of Problems w/ Anesthesia, Motion Sickness Additional Past Anesthesia/Blood Transfusion Reaction / Comm: very combative when waking up from general anesthesia, anxious & agitated w/IV sedation,. mother ponv Past Psychological History: Anxiety Smoking Status: Never smoker Past Alcohol Use History: Rare Past Drug Use History: None Reported - Past Family History Father Brother(s) Family Medical History: Cancer, Deep Vein Thrombosis (DVT) Additional Family Medical History / Comment(s): colon cancer Mother Family Medical History: Cancer Additional Family Medical History / Comment(s): colon cancer Medications and Allergies Home Medications Medication Instructions Recorded Confirmed Type ALPRAZolam [Xanax] 0.25 mg PO TID PRN 01/28/16 03/01/21 History Aspirin 325 mg PO DAILY 01/28/16 03/01/21 History Furosemide [Lasix] 40 mg PO DAILY 01/28/16 03/01/21 History Losartan/Hydrochlorothiazide 1 tab PO DAILY 01/28/16 03/01/21 History [Hyzaar 100-25 Tablet] Metoprolol Succinate (ER) [Toprol 100 mg PO BID 01/28/16 03/01/21 History XL] Optive Eye Drops 1 drop BOTH EYES BID 01/28/16 03/01/21 History Potassium Chloride [Klor-Con 10 ER] 10 meq PO TID 01/28/16 03/01/21 History Vit C/E/Zn/Coppr/Lutein/Zeaxan 1 cap PO BID 01/28/16 03/01/21 History [Preservision Areds 2 Softgel] Vitamin A [Vitamin A (8,000 Units 8,000 unit PO DAILY 01/28/16 03/01/21 History = 2,400 MCG)] amLODIPine [Norvasc] 5 mg PO DAILY@1000 01/28/16 03/01/21 History Ascorbic Acid [Vitamin C] 1,000 mg PO DAILY 10/01/19 03/01/21 History Calcium Carbonate [Tums] 1,000 mg PO ACHS PRN 10/01/19 03/01/21 History Fexofenadine HCl [Rasheeda Allergy] 180 mg PO DAILY 10/01/19 03/01/21 History Fluticasone/Salmeterol [Advair 1 puff INHALATION RT-Q12H 10/01/19 03/01/21 History 100-50 Diskus] Meloxicam [Mobic] 7.5 mg PO DAILY@1700 10/01/19 03/01/21 History glipiZIDE [Glucotrol] 5 mg PO BID@0700,1700 10/01/19 03/01/21 History Albuterol Sulfate [Ventolin HFA] 1 - 2 puff INHALATION RT-Q4H PRN 02/01/21 03/01/21 History Chlorhexidine Gluconate [Peridex] 5 ml PO DAILY PRN 02/01/21 03/01/21 History Clindamycin HCl 600 mg PO DIRECTED PRN 02/01/21 03/01/21 History Ezetimibe [Zetia] 10 mg PO DAILY 02/01/21 03/01/21 History Fluticasone Nasal [place] [Flonase 1 spray EA NOSTRIL BID 02/01/21 03/01/21 History Nasal [place]] Omeprazole [PriLOSEC] 20 mg PO BID 02/01/21 03/01/21 History Acetaminophen [Children's 960 mg PO Q8H PRN 03/01/21 03/01/21 History Acetaminophen] Cholecalciferol [Vitamin D3 (25 50 mcg PO BID 03/01/21 03/01/21 History Mcg = 1000 Iu)] Simvastatin [Zocor] 20 mg PO HS 03/01/21 03/01/21 History metFORMIN HCL [Glucophage] 1,000 mg PO BID 03/01/21 03/01/21 History Allergies Allergy/AdvReac Type Severity Reaction Status Date / Time cefazolin [From Kefzol] Allergy Rash/Hives Verified 03/01/21 21:19 enalaprilat [From Vasotec] Allergy Cough,rash Verified 03/01/21 21:19 Penicillins Allergy Rash/Hives Verified 03/01/21 21:19 prochlorperazine Allergy facial Verified 03/01/21 21:19 [From Compazine] twitching, loss of sensation of mouth Sulfa (Sulfonamide Allergy Rash/Hives Verified 03/01/21 21:19 Antibiotics) Physical Exam Vitals: Vital Signs Temp Pulse Pulse Pulse Resp BP BP 03/02/21 07:08 97.5 F L 104 H 20 123/76 03/02/21 07:03 97.5 F L 104 H 20 123/76 03/02/21 04:31 97.5 F L 104 H 18 141/84 03/02/21 00:30 122 H 18 03/02/21 00:04 98.3 F 97 18 139/76 03/01/21 18:38 98.0 F 122 H 20 111/73 Pulse Ox 03/02/21 07:08 96 03/02/21 07:03 96 03/02/21 04:31 96 03/02/21 00:30 03/02/21 00:04 96 03/01/21 18:38 98 Intake and Output 03/01/21 03/02/21 03/02/21 22:59 06:59 14:59 Intake Total 1560 Balance 1560 Intake: Intake, IV Titration 1560 Amount Sodium Chloride 0.9% 1, 1560 000 ml @ 130 mls/hr IV . Q7H42M [facility] Rx#:[id number] Other: Voiding Method Toilet # Voids 1 Weight 130.181 kg 130.181 kg Obese - Constitutional General appearance: cooperative, no acute distress - EENT Eyes: EOMI - Respiratory Respiratory: bilateral: diminished - Cardiovascular Rhythm: regularly irregular - Gastrointestinal General gastrointestinal: soft - Integumentary Integumentary: pale - Musculoskeletal Musculoskeletal: generalized weakness - Psychiatric Psychiatric: A&O x's 3, appropriate affect, intact judgment & insight Results CBC & Chem 7: 03/01/21 19:49 03/02/21 10:52 Labs: Abnormal Lab Results - Last 24 Hours (Table) 03/01/21 Range/Units 19:49 Sodium 133 L (137-145) mmol/L Chloride 96 L (98-107) mmol/L Carbon Dioxide 19 L (22-30) mmol/L BUN 40 H (9-20) mg/dL Creatinine 1.82 H (0.66-1.25) mg/dL Glucose 202 H (74-99) mg/dL Magnesium 1.5 L (1.6-2.3) mg/dL Total Bilirubin 1.6 H (0.2-1.3) mg/dL Chest x-ray: report reviewed Assessment and Plan (1) Dehydration Current Visit: Yes Status: Acute Code(s): E86.0 - DEHYDRATION SNOMED Code(s): 38434349 (2) Esophageal cancer Current Visit: Yes Status: Acute Code(s): C15.9 - MALIGNANT NEOPLASM OF ESOPHAGUS, UNSPECIFIED SNOMED Code(s): 544351465 Plan: Will discuss placement of mediport with CTS prior to discharge as the plan will be Esophageal stent as outpatient with Dr. Sheehan, and wwould like to begin treatment initiation soon after to ensure decrease in cancer. - I have sent a PS message to EXTRACTOR AND WRINGER OPERATOR, CTS does not place MP. Will ask general surgery Dr. Umaña has discussed in detail with patient plan moving forward, we may consider feeding tube in addition to stent placement, however he is unable to even swallow secretions at this time it will be best overall to at least provide some patency for this and if still unable to obtain nutrition by mouth a feeding tube maybe considered. Physician Attest: I have completed the full history and physical and agree with above dictation, dictated as a scribe.
[2021-03-02 17:01] LABS: Glucose,Whole Blood 163 mg/dL (75-99)
[2021-03-02] MEDS ORDERED: Potassium Replacement Protocol 1 EACH MISC MISCELLANE PRN (17:51)
[2021-03-02 19:58] LABS: Glucose,Whole Blood 158 mg/dL (75-99)
[2021-03-02] MEDS: ENOXAPARIN 40 MG/0.4 ML SYRINGE SQ SCH (21:02)
[2021-03-03] MEDS: ONDANSETRON 4 MG/2 ML VIAL IVP PRN ×3 (04:14→19:27)
[2021-03-03] MEDS: SODIUM CHLORIDE 0.9% 1,000 ML IV SCH ×3 (04:14→19:27)
[2021-03-03] MEDS: HYDROmorphone 1 MG/ML 1 ML SYRINGE IVP PRN ×5 (04:14→19:27)
[2021-03-03 06:52] LABS: Glucose,Whole Blood 149 mg/dL (75-99)
[2021-03-03] MEDS: SYMBICORT 80-4.5 MCG INHALER INHALATION SCH ×2 (08:15→18:50)
[2021-03-03] MEDS: FLUTICASONE 50MCG/SPRAY NASAL 16GM EA NOSTRIL SCH ×2 (08:20→21:58)
[2021-03-03] MEDS: INSULIN ASPART (NovoLOG) 100 UNIT/ML VIAL SQ SCH ×4 (08:20→21:58)
[2021-03-03] MEDS: PANTOPRAZOLE 40 MG/10 ML VIAL IV SCH ×2 (08:20→21:58)
[2021-03-03] MEDS: ENOXAPARIN 40 MG/0.4 ML SYRINGE SQ SCH (08:20)
--- NOTE | 2021-03-03 09:14 | P.PN ---
Subjective Progress Note Date: 03/03/21 Principal diagnosis: Proximal and distal invasive poorly differentiated adenocarcinoma of the esophagus per EGD pathology from 02/03/21, distal esophageal neoplasm, with abnormal thoracic and bilateral supraclavicular adenopathy, and abnormal left adrenal suspected metastatic lesion on PET 02/28/21, history of 60 pound weight loss since early January 2021, progressive nausea and vomitting, hypomagnesemia, dehydration this admission. History of GERD, HTN, HLD, BULMARO with home cpap use, DM, never smoker, rare etoh use, significant family history of colon cancer The patient was seen and examined this morning sitting up in bed on the medical oncology unit in no acute distress. Denies any pain or shortness of breath. States he is feeling better today even though he is still unable to keep very much fluids down. He was seen and examined yesterday by Dr. Yarbrough with options giving for PEG tube placement versus esophageal stent. After discussion with oncology the patient is opting for esophageal stent but per oncology will be placed by Dr. Sheehan from GI. No other new concerns. Objective - Vital Signs Vital signs: Vital Signs Temp 97.6 F 03/03/21 07:51 Pulse 99 03/03/21 07:51 Resp 16 03/03/21 07:51 BP 147/96 03/03/21 07:51 Pulse Ox 95 03/03/21 07:51 Intake & Output 03/02/21 03/03/21 03/03/21 18:59 06:59 18:59 Intake Total 1560 540 Balance 1560 540 Intake: Intake, IV Titration 1560 Amount Sodium Chloride 0.9% 1, 1560 000 ml @ 130 mls/hr IV . Q7H42M [facility] Rx#:[id number] Oral 540 Other: Voiding Method Toilet Toilet # Voids 1 - Exam CONSTITUTIONAL: Appears comfortable, cooperative, no acute distress RESPIRATORY: Lungs sounds diminished bilaterally. Respirations even, nonlabored. Currently on room air with oxygen saturation 95%. CARDIOVASCULAR: S1, S2 present. Regular rate and rhythm. Palpable peripheral pulses bilaterally. GASTROINTESTINAL: Abdomen soft, nontender, nondistended. Active bowel sounds present 4 quadrants. GENITOURINARY: Continues to void INTEGUMENTARY: Skin is warm and dry with evidence of good perfusion NEUROLOGIC: Cranial nerves II through XII intact MUSKULOSKELETAL: Able to move all extremities, strength equal bilaterally, gait normal PSYCHIATRIC: Alert and oriented to person place and time, appropriate affect, intact judgment and insight - Labs CBC & Chem 7: 03/01/21 19:49 03/02/21 10:52 Labs: Abnormal Lab Results - Last 24 Hours (Table) 03/02/21 03/02/21 03/02/21 Range/Units 09:41 10:52 11:55 Sodium 136 L (137-145) mmol/L Potassium 3.4 L (3.5-5.1) mmol/L BUN 35 H (9-20) mg/dL Creatinine 1.35 H (0.66-1.25) mg/dL Glucose 206 H (74-99) mg/dL POC Glucose (mg/dL) 184 H 178 H (75-99) mg/dL 03/02/21 03/02/21 03/03/21 Range/Units 17:00 19:57 06:50 Sodium (137-145) mmol/L Potassium (3.5-5.1) mmol/L BUN (9-20) mg/dL Creatinine (0.66-1.25) mg/dL Glucose (74-99) mg/dL POC Glucose (mg/dL) 163 H 158 H 149 H (75-99) mg/dL Assessment and Plan Assessment: 1. Proximal and distal invasive poorly differentiated adenocarcinoma of the esophagus per EGD pathology from 02/03/21 2. Distal esophageal neoplasm, with abnormal thoracic and bilateral supraclavicular adenopathy, and abnormal left adrenal suspected metastatic lesion on PET 02/28/21 3. History of 60 pound weight loss since early January 2021 4. Progressive nausea and vomitting, hypomagnesemia, dehydration this admission 5. GERD 6. History of HTN 7. History of HLD 8. BULMARO with home cpap use 9. DM 10. Never smoker 11. Rare etoh use 12. Significant family history of colon cancer Plan: 1. No surgical intervention from our standpoint. Esophageal stent placement per Dr. Sheehan from GI 2. Medical management for the comorbidities per primary care, oncology 3. Will sign off. Please call us with any further questions Time with Patient: Less than 30
[2021-03-03 11:02] LABS: Basophils # (A) 0.05 X 10*3/uL (0.00-0.10); Basophils % (A) 0.6 %; Eosinophils # (A) 0.42 X 10*3/uL (0.04-0.35); Eosinophils % (A) 5.1 %; HCT 43.9 % (39.6-50.0); HGB 14.5 g/dL (13.0-17.0); Immature Grans, Automated 0.4 %; Lymphocytes # (A) 1.38 X 10*3/uL (0.90-5.00); Lymphocytes % (A) 16.8 %; MCH 29.8 pg (27.0-32.0); MCV 90.3 fL (80.0-97.0); Mean Platelet Volume 10.1 fL (9.5-12.2); Monocytes % (A) 8.5 %; NRBC Per 100 WBC 0 /100 WBCS (0.0-0.0); Neutrophils # (A) 5.64 X 10*3/uL (1.80-7.70); Neutrophils % (A) 68.6 %; Platelet Count 262 X 10*3/uL (140-440); RBC 4.86 X 10*6/uL (4.40-5.60); RDW 15.2 % (11.5-14.5); WBC 8.22 X 10*3/uL (4.50-10.00)
--- NOTE | 2021-03-03 11:02 | P.GSCN ---
History of Present Illness Consult date: 03/03/21 History of present illness: CHIEF COMPLAINT: Nausea, vomiting and dehydration HISTORY OF PRESENT ILLNESS: This is a 70-year-old male with history of esophageal cancer diagnosed 02/03/2021. Patient reports that he has not been eating well for about 6 weeks. He has had increased poor oral intake with nausea and vomiting. Difficulty keeping solids and liquids down. He is dehydrated. Patient has had a 60 pound weight loss since December. 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 Patient had PET scan was completed 02/25/21 which confirmed distal esophageal neoplasm, with abnormal thoracic and bilateral supraclavicular adenopathy, and abnormal left adrenal suspected metastatic lesion. Patient was sent by oncology service to the emergency room room yesterday due to severe dehydration with nausea and vomiting and difficulty swallowing. Surgical service has been consulted for Mediport placement for chemotherapy. Patient also scheduled for EGD with esophageal stent placement with Dr. Sheehan tomorrow. PAST MEDICAL HISTORY: Asthma, Cancer, COPD, Diabetes Mellitus, GERD/Reflux, Hyperlipidemia, Hypertension, Osteoarthritis (OA), Sleep Apnea/CPAP/BIPAP, colon polyps PAST SURGICAL HISTORY: Hernia repair, joint replacement, orthopedic surgery MEDICATIONS: See list. ALLERGIES: See list. SOCIAL HISTORY: No illicit drug use. REVIEW OF SYSTEMS: CONSTITUTIONAL: Denies fever or chills. HEENT: Denies blurred vision, vision changes, or eye pain. Denies hemoptysis CARDIOVASCULAR: Denies chest pain or pressure. RESPIRATORY: No shortness of breath. GASTROINTESTINAL: See HPI for pertinent findings HEMATOLOGIC: Denies bleeding disorders. GENITOURINARY: Denies any blood in urine or increased urinary frequency. SKIN: Denies pruitis. Denies rash. PHYSICAL EXAM: VITAL SIGNS: Reviewed GENERAL: Well-developed in no acute distress. HEENT: No sclera icterus. Extraocular movements grossly intact. Moist buccal mucosa. Head is atraumatic, normocephalic. No nasal drainage. ABDOMEN: Soft. Nondistended. Nontender NEUROLOGIC: Alert and oriented. Cranial nerves II through XII grossly intact. LABORATORY DATA: WBC 9.5 hemoglobin 16.7 platelets 289 Sodium 133-136 potassium 3.4 creatinine 1.8-10-1.35 Magnesium 1.8 IMAGING: ASSESSMENT: 1. Esophageal cancer 2. Dehydration 3. Hypokalemia 4. PET scan was completed 02/25/21 which confirmed distal esophageal neoplasm, with abnormal thoracic and bilateral supraclavicular adenopathy, and abnormal left adrenal suspected metastatic lesion. PLAN: -Patient scheduled for Mediport placement tomorrow 03/04/[address] Cole -Keep patient nothing by mouth after midnight -Hold Lovenox in a.m. for surgery -Patient scheduled for EGD with esophageal stent placement with Dr. Sheehan tomorrow -Continue supportive care -Continue IV fluids Thank you for this consultation Physician Reference And Instruction Librarian note has been reviewed by physician. Signing provider agrees with the documented findings, assessment, and plan of care. Past Medical History Past Medical History: Asthma, Cancer, COPD, Diabetes Mellitus, GERD/Reflux, Hyperlipidemia, Hypertension, Osteoarthritis (OA), Sleep Apnea/CPAP/BIPAP Additional Past Medical History / Comment(s): uses CPAP, orthostatic vertigo, dysphagia, severe heartburn & burning for about 6 weeks,. hx colon polyps, year round allergies since childhood History of Any Multi-Drug Resistant Organisms: None Reported Past Surgical History: Hernia Repair, Joint Replacement, Orthopedic Surgery Additional Past Surgical History / Comment(s): cystoscopy, both knees replaced, multiple arthroscopies knees, colonoscopies, dental implant, right hip replaced Past Anesthesia/Blood Transfusion Reactions: Previous Problems w/ Anesthesia, Family History of Problems w/ Anesthesia, Motion Sickness Additional Past Anesthesia/Blood Transfusion Reaction / Comm: very combative when waking up from general anesthesia, anxious & agitated w/IV sedation,. mother ponv Past Psychological History: Anxiety Smoking Status: Never smoker Past Alcohol Use History: Rare Past Drug Use History: None Reported - Past Family History Father Brother(s) Family Medical History: Cancer, Deep Vein Thrombosis (DVT) Additional Family Medical History / Comment(s): colon cancer Mother Family Medical History: Cancer Additional Family Medical History / Comment(s): colon cancer Medications and Allergies Home Medications Medication Instructions Recorded Confirmed Type ALPRAZolam [Xanax] 0.25 mg PO TID PRN 01/28/16 03/01/21 History Aspirin 325 mg PO DAILY 01/28/16 03/01/21 History Furosemide [Lasix] 40 mg PO DAILY 01/28/16 03/01/21 History Losartan/Hydrochlorothiazide 1 tab PO DAILY 01/28/16 03/01/21 History [Hyzaar 100-25 Tablet] Metoprolol Succinate (ER) [Toprol 100 mg PO BID 01/28/16 03/01/21 History XL] Optive Eye Drops 1 drop BOTH EYES BID 01/28/16 03/01/21 History Potassium Chloride [Klor-Con 10 ER] 10 meq PO TID 01/28/16 03/01/21 History Vit C/E/Zn/Coppr/Lutein/Zeaxan 1 cap PO BID 01/28/16 03/01/21 History [Preservision Areds 2 Softgel] Vitamin A [Vitamin A (8,000 Units 8,000 unit PO DAILY 01/28/16 03/01/21 History = 2,400 MCG)] amLODIPine [Norvasc] 5 mg PO DAILY@1000 01/28/16 03/01/21 History Ascorbic Acid [Vitamin C] 1,000 mg PO DAILY 10/01/19 03/01/21 History Calcium Carbonate [Tums] 1,000 mg PO ACHS PRN 10/01/19 03/01/21 History Fexofenadine HCl [Rasheeda Allergy] 180 mg PO DAILY 10/01/19 03/01/21 History Fluticasone/Salmeterol [Advair 1 puff INHALATION RT-Q12H 10/01/19 03/01/21 History 100-50 Diskus] Meloxicam [Mobic] 7.5 mg PO DAILY@1700 10/01/19 03/01/21 History glipiZIDE [Glucotrol] 5 mg PO BID@0700,1700 10/01/19 03/01/21 History Albuterol Sulfate [Ventolin HFA] 1 - 2 puff INHALATION RT-Q4H PRN 02/01/21 03/01/21 History Chlorhexidine Gluconate [Peridex] 5 ml PO DAILY PRN 02/01/21 03/01/21 History Clindamycin HCl 600 mg PO DIRECTED PRN 02/01/21 03/01/21 History Ezetimibe [Zetia] 10 mg PO DAILY 02/01/21 03/01/21 History Fluticasone Nasal [place] [Flonase 1 spray EA NOSTRIL BID 02/01/21 03/01/21 History Nasal [place]] Omeprazole [PriLOSEC] 20 mg PO BID 02/01/21 03/01/21 History Acetaminophen [Children's 960 mg PO Q8H PRN 03/01/21 03/01/21 History Acetaminophen] Cholecalciferol [Vitamin D3 (25 50 mcg PO BID 03/01/21 03/01/21 History Mcg = 1000 Iu)] Simvastatin [Zocor] 20 mg PO HS 03/01/21 03/01/21 History metFORMIN HCL [Glucophage] 1,000 mg PO BID 03/01/21 03/01/21 History Allergies Allergy/AdvReac Type Severity Reaction Status Date / Time cefazolin [From Kefzol] Allergy Rash/Hives Verified 03/01/21 21:19 enalaprilat [From Vasotec] Allergy Cough,rash Verified 03/01/21 21:19 Penicillins Allergy Rash/Hives Verified 03/01/21 21:19 prochlorperazine Allergy facial Verified 03/01/21 21:19 [From Compazine] twitching, loss of sensation of mouth Sulfa (Sulfonamide Allergy Rash/Hives Verified 03/01/21 21:19 Antibiotics) Surgical - Exam Vital Signs Temp Pulse Resp BP Pulse Ox 98.0 F 122 H 20 111/73 98 03/01/21 18:38 03/01/21 18:38 03/01/21 18:38 03/01/21 18:38 03/01/21 18:38 Results - Labs 03/03/21 07:17 03/03/21 07:17 Abnormal Lab Results - Last 24 Hours (Table) 03/02/21 03/02/21 03/02/21 Range/Units 10:52 11:55 17:00 Sodium 136 L (137-145) mmol/L Potassium 3.4 L (3.5-5.1) mmol/L BUN 35 H (9-20) mg/dL Creatinine 1.35 H (0.66-1.25) mg/dL Glucose 206 H (74-99) mg/dL POC Glucose (mg/dL) 178 H 163 H (75-99) mg/dL 03/02/21 03/03/21 Range/Units 19:57 06:50 Sodium (137-145) mmol/L Potassium (3.5-5.1) mmol/L BUN (9-20) mg/dL Creatinine (0.66-1.25) mg/dL Glucose (74-99) mg/dL POC Glucose (mg/dL) 158 H 149 H (75-99) mg/dL Diabetes panel 03/02/21 Range/Units 10:52 Sodium 136 L (137-145) mmol/L Potassium 3.4 L (3.5-5.1) mmol/L Chloride 101 (98-107) mmol/L Carbon Dioxide 24 (22-30) mmol/L BUN 35 H (9-20) mg/dL Creatinine 1.35 H (0.66-1.25) mg/dL Glucose 206 H (74-99) mg/dL Calcium 9.0 (8.4-10.2) mg/dL AST 25 (17-59) U/L ALT 16 (4-49) U/L Alkaline Phosphatase 100 (38-126) U/L Total Protein 6.4 (6.3-8.2) g/dL Albumin 3.6 (3.5-5.0) g/dL Calcium panel 03/02/21 Range/Units 10:52 Calcium 9.0 (8.4-10.2) mg/dL Albumin 3.6 (3.5-5.0) g/dL Pituitary panel 03/02/21 Range/Units 10:52 Sodium 136 L (137-145) mmol/L Potassium 3.4 L (3.5-5.1) mmol/L Chloride 101 (98-107) mmol/L Carbon Dioxide 24 (22-30) mmol/L BUN 35 H (9-20) mg/dL Creatinine 1.35 H (0.66-1.25) mg/dL Glucose 206 H (74-99) mg/dL Calcium 9.0 (8.4-10.2) mg/dL Adrenal panel 03/02/21 Range/Units 10:52 Sodium 136 L (137-145) mmol/L Potassium 3.4 L (3.5-5.1) mmol/L Chloride 101 (98-107) mmol/L Carbon Dioxide 24 (22-30) mmol/L BUN 35 H (9-20) mg/dL Creatinine 1.35 H (0.66-1.25) mg/dL Glucose 206 H (74-99) mg/dL Calcium 9.0 (8.4-10.2) mg/dL Total Bilirubin 1.3 (0.2-1.3) mg/dL AST 25 (17-59) U/L ALT 16 (4-49) U/L Alkaline Phosphatase 100 (38-126) U/L Total Protein 6.4 (6.3-8.2) g/dL Albumin 3.6 (3.5-5.0) g/dL
[2021-03-03 11:13] LABS: African American GFR (CKD) 66 (>60 ml/min/1.73 sqM); Anion Gap 9 mmol/L; Blood Urea Nitrogen 24 mg/dL (9-20); Calcium 9.1 mg/dL (8.4-10.2); Carbon Dioxide 26 mmol/L (22-30); Chloride 105 mmol/L (98-107); Glucose 172 mg/dL (74-99); Non-African American GFR(CKD) 57 (>60 ml/min/1.73 sqM); Sodium 140 mmol/L (137-145)
[2021-03-03 11:52] LABS: Glucose,Whole Blood 176 mg/dL (75-99)
--- NOTE | 2021-03-03 12:31 | P.PN ---
Subjective Progress Note Date: 03/03/21 Principal diagnosis: Esophageal Cancer Discussed with CTS, they have signed off. Patient is overall feeling better today. Still has red raised rash on arms and chest, plan for stent Sunday. Objective - Vital Signs Vital signs: Vital Signs Temp 97.6 F 03/03/21 07:51 Pulse 98 03/03/21 11:31 Resp 18 03/03/21 11:31 BP 147/96 03/03/21 07:51 Pulse Ox 95 03/03/21 07:51 Intake & Output 03/02/21 03/03/21 03/03/21 18:59 06:59 18:59 Intake Total 1560 540 Balance 1560 540 Intake: Intake, IV Titration 1560 Amount Sodium Chloride 0.9% 1, 1560 000 ml @ 130 mls/hr IV . Q7H42M [facility] Rx#:[id number] Oral 540 Other: Voiding Method Toilet Toilet Toilet # Voids 1 - Exam Obese - Constitutional General appearance: cooperative, no acute distress - EENT Eyes: EOMI Erythema rash on bilateral arms - Respiratory Respiratory: bilateral: diminished - Cardiovascular Rhythm: regularly irregular - Gastrointestinal General gastrointestinal: soft - Integumentary Integumentary: pale - Musculoskeletal Musculoskeletal: generalized weakness - Psychiatric Psychiatric: A&O x's 3, appropriate affect, intact judgment & insight - Labs CBC & Chem 7: 03/03/21 07:17 03/03/21 07:17 Labs: Abnormal Lab Results - Last 24 Hours (Table) 03/02/21 03/02/21 03/03/21 Range/Units 17:00 19:57 06:50 RDW (11.5-14.5) % Eosinophils # (0.04-0.35) X 10*3/uL BUN (9-20) mg/dL Creatinine (0.66-1.25) mg/dL Glucose (74-99) mg/dL POC Glucose (mg/dL) 163 H 158 H 149 H (75-99) mg/dL 03/03/21 03/03/21 03/03/21 Range/Units 07:17 07:17 11:50 RDW 15.2 H (11.5-14.5) % Eosinophils # 0.42 H (0.04-0.35) X 10*3/uL BUN 24 H (9-20) mg/dL Creatinine 1.28 H (0.66-1.25) mg/dL Glucose 172 H (74-99) mg/dL POC Glucose (mg/dL) 176 H (75-99) mg/dL Assessment and Plan (1) Dehydration Current Visit: Yes Status: Acute Code(s): E86.0 - DEHYDRATION SNOMED Code(s): 04759676 (2) Esophageal cancer Current Visit: Yes Status: Acute Code(s): C15.9 - MALIGNANT NEOPLASM OF ESOPHAGUS, UNSPECIFIED SNOMED Code(s): 606391209 Plan: Stent placement with GI on Sunday Mediport placement prior to discharge and possible J or G tube depending on if able to swallow with stent. Discussed with patient in detail. Physician Attest: I have completed the full history and physical and agree with above dictation, dictated as a scribe.
[2021-03-03 17:05] LABS: Glucose,Whole Blood 124 mg/dL (75-99)
[2021-03-03 20:12] LABS: Glucose,Whole Blood 140 mg/dL (75-99)
[2021-03-04] MEDS: HYDROmorphone 1 MG/ML 1 ML SYRINGE IVP PRN ×7 (00:16→23:50)
[2021-03-04] MEDS: ONDANSETRON 4 MG/2 ML VIAL IVP PRN ×3 (03:20→20:05)
[2021-03-04] MEDS: SODIUM CHLORIDE 0.9% 1,000 ML IV SCH ×3 (03:20→23:52)
[2021-03-04 06:59] LABS: African American GFR (CKD) 79 (>60 ml/min/1.73 sqM); Anion Gap 7 mmol/L; Blood Urea Nitrogen 16 mg/dL (9-20); Calcium 8.8 mg/dL (8.4-10.2); Carbon Dioxide 25 mmol/L (22-30); Chloride 108 mmol/L (98-107); Glucose 143 mg/dL (74-99); Non-African American GFR(CKD) 68 (>60 ml/min/1.73 sqM); Potassium 3.7 mmol/L (3.5-5.1); Sodium 140 mmol/L (137-145)
[2021-03-04 07:09] LABS: Glucose,Whole Blood 145 mg/dL (75-99)
[2021-03-04] MEDS ORDERED: IV FLUID CONTINUATION 550 ML IV ONE (07:09)
[2021-03-04] MEDS ORDERED: HEPARIN SODIUM,PORCINE 100 UNIT/ML 5 ML VIAL IV ONE (07:16)
[2021-03-04] MEDS ORDERED: BUPIVACAIN-EPI 0.25%-1:200,000 30 ML VIAL SQ ONE ×2 (07:17→08:35)
[2021-03-04] MEDS ORDERED: MIDAZOLAM 2 MG/2 ML VIAL IV ONE (07:28)
[2021-03-04] MEDS ORDERED: ONDANSETRON 4 MG/2 ML VIAL IVP ONE (07:29)
[2021-03-04] MEDS: PANTOPRAZOLE 40 MG/10 ML VIAL IV SCH ×2 (07:39→20:47)
[2021-03-04] MEDS ORDERED: IOPAMIDOL-370 50ML BTL MISCELLANE ONE (07:49)
[2021-03-04] MEDS ORDERED: fentaNYL (PF) 50 MCG/ML 2 ML AMP ONE (07:55)
[2021-03-04] MEDS ORDERED: LIDOCAINE 1% INJ 10MG/ML (20 ML MDV) ONE ×2 (07:55→13:08)
[2021-03-04] MEDS ORDERED: SUCCINYLCHOLINE CHLORIDE VIAL 200 MG/10 ML VIAL IV ONE (07:55)
[2021-03-04] MEDS ORDERED: PROPOFOL 10 MG/ML 20 ML VIAL IV ONE ×2 (07:55→13:08)
[2021-03-04] MEDS: SYMBICORT 80-4.5 MCG INHALER INHALATION SCH ×2 (08:16→19:14)
[2021-03-04] MEDS: INSULIN ASPART (NovoLOG) 100 UNIT/ML VIAL SQ SCH ×4 (08:32→20:46)
[2021-03-04] MEDS ORDERED: SODIUM CHLORIDE 0.9% 1,000 ML IV ONE ×3 (08:36→13:19)
--- NOTE | 2021-03-04 09:08 | P.OP ---
Date of Procedure: 03/04/21 Preoperative Diagnosis: Esophageal cancer Postoperative Diagnosis: Esophageal cancer Procedure(s) Performed: rMediport right subclavian Anesthesia: SARAI Surgeon: Jesse Cole Estimated Blood Loss (ml): 5 Pathology: none sent Condition: stable Disposition: PACU Description of Procedure: MThe patient was placed on the operating table in the supine position. The patient received IV sedation. The patient's chest was prepped and draped in the usual sterile fashion. A roll had been placed between the shoulder blades in a longitudinal fashion. After prepping and draping the skin was anesthetized 1% local Xylocaine. And then using the Seldinger technique the subclavian vein was cannulated. A wire was placed into the vein and fluoroscopy position the wire at the atrial caval junction. Next the dilator sheath was placed over top the wire and the wire was withdrawn. The catheter was positioned at the atriocaval position. The catheter was placed through the sheath after the dilator was withdrawn. The sheath was then withdrawn. Position of the catheter was confirmed with fluoroscopy. The Port-A-Cath was connected to the catheter. The Port-A-Cath was flushed with saline and then heparinized saline. The skin was closed interrupted 3-0 Monocryl suture. Dermabond was applied. Patient tolerated procedure well and was sent to recovery room stable condition.
--- NOTE | 2021-03-04 09:38 | FL ---
Fluoroscopy HISTORY: MediPort placement 12 seconds fluoroscopy time supplied to the referring clinician. 3 intraoperative C-arm images docum ent the procedure. See dictated report from general surgery.
[2021-03-04] MEDS: FLUTICASONE 50MCG/SPRAY NASAL 16GM EA NOSTRIL SCH ×2 (11:02→16:37)
--- NOTE | 2021-03-04 11:11 | P.CONS ---
History of Present Illness - Reason for Consult Consult date: 03/04/21 Dysphagia, EGD with stent Requesting physician: Maximo Umaña - Chief Complaint Dysphagia - History of Present Illness This is 70-year-old male who had an outpatient upper endoscopy on 02/03/[address] Sheehan as part of evaluation of long-standing history of GERD. He was also having difficulty with swallowing liquids and solids. Findings consisted of distal esophageal ulcerated mass/esophageal stricture with significant luminal narrowing and a 2 cm proximal esophageal polypoid lesion. Biopsy results came back as invasive poorly differentiated adenocarcinoma. He was referred to oncology. Patient underwent a PET scan on 02/28/2021 showing distal esophageal neoplasm confirmed. Abnormal thoracic and bilateral supraclavicular adenopathy noted. Abnormal left adrenal suspected metastatic lesion. Nonspecific left axillary lymph node. Neoplastic involvement at this level cannot be excluded. He was readmitted to the hospital on 03/01/2021 for dehydration due to decreased oral intake. He is having very difficult time with swallowing liquids and especially solids. Gastroenterology was contacted regarding EGD with esophageal stent placement. This morning he underwent port placement. He states he is still having difficulty with swallowing even liquids and at times regurgitates. Review of Systems REVIEW OF SYSTEMS: CARDIOPULMONARY: No chest pain or shortness of breath. Gastrointestinal: Burning sensation in epigastric region. Difficulty swallowing solids and liquids. Approximate 60 pound weight loss since January. No h ematemesis, coffee-ground emesis. No rectal bleeding, or melena. GENITOURINARY: No dysuria or hematuria. MUSCULOSKELETAL: Reports normal range of motion., Joint pain. SKIN: No rashes. No jaundice. ENDOCRINE: No chills, fevers. No excessive weight gain or loss. No polydipsia or polyuria. PSYCHIATRIC: Unremarkable. NEUROLOGY: No change in mental status. Denies dizziness, headache. ENT: Vision unremarkable. CONSTITUTIONAL: No recent weight loss. No fever, chills, night sweats. Past Medical History Past Medical History: Asthma, Cancer, COPD, Diabetes Mellitus, GERD/Reflux, Hyperlipidemia, Hypertension, Osteoarthritis (OA), Sleep Apnea/CPAP/BIPAP Additional Past Medical History / Comment(s): uses CPAP, orthostatic vertigo, dysphagia, severe heartburn & burning for about 6 weeks,. hx colon polyps, year round allergies since childhood History of Any Multi-Drug Resistant Organisms: None Reported Past Surgical History: Hernia Repair, Joint Replacement, Orthopedic Surgery Additional Past Surgical History / Comment(s): cystoscopy, both knees replaced, multiple arthroscopies knees, colonoscopies, dental implant, right hip replaced Past Anesthesia/Blood Transfusion Reactions: Previous Problems w/ Anesthesia, Family History of Problems w/ Anesthesia, Motion Sickness Additional Past Anesthesia/Blood Transfusion Reaction / Comm: very combative when waking up from general anesthesia, anxious & agitated w/IV sedation,. mother ponv Past Psychological History: Anxiety Smoking Status: Never smoker Past Alcohol Use History: Rare Past Drug Use History: None Reported - Past Family History Father Brother(s) Family Medical History: Cancer, Deep Vein Thrombosis (DVT) Additional Family Medical History / Comment(s): colon cancer Mother Family Medical History: Cancer Additional Family Medical History / Comment(s): colon cancer Medications and Allergies Home Medications Medication Instructions Recorded Confirmed Type ALPRAZolam [Xanax] 0.25 mg PO TID PRN 01/28/16 03/01/21 History Aspirin 325 mg PO DAILY 01/28/16 03/01/21 History Furosemide [Lasix] 40 mg PO DAILY 01/28/16 03/01/21 History Losartan/Hydrochlorothiazide 1 tab PO DAILY 01/28/16 03/01/21 History [Hyzaar 100-25 Tablet] Metoprolol Succinate (ER) [Toprol 100 mg PO BID 01/28/16 03/01/21 History XL] Optive Eye Drops 1 drop BOTH EYES BID 01/28/16 03/01/21 History Potassium Chloride [Klor-Con 10 ER] 10 meq PO TID 01/28/16 03/01/21 History Vit C/E/Zn/Coppr/Lutein/Zeaxan 1 cap PO BID 01/28/16 03/01/21 History [Preservision Areds 2 Softgel] Vitamin A [Vitamin A (8,000 Units 8,000 unit PO DAILY 01/28/16 03/01/21 History = 2,400 MCG)] amLODIPine [Norvasc] 5 mg PO DAILY@1000 01/28/16 03/01/21 History Ascorbic Acid [Vitamin C] 1,000 mg PO DAILY 10/01/19 03/01/21 History Calcium Carbonate [Tums] 1,000 mg PO ACHS PRN 10/01/19 03/01/21 History Fexofenadine HCl [Rasheeda Allergy] 180 mg PO DAILY 10/01/19 03/01/21 History Fluticasone/Salmeterol [Advair 1 puff INHALATION RT-Q12H 10/01/19 03/01/21 His tory 100-50 Diskus] Meloxicam [Mobic] 7.5 mg PO DAILY@1700 10/01/19 03/01/21 History glipiZIDE [Glucotrol] 5 mg PO BID@0700,1700 10/01/19 03/01/21 History Albuterol Sulfate [Ventolin HFA] 1 - 2 puff INHALATION RT-Q4H PRN 02/01/21 03/01/21 History Chlorhexidine Gluconate [Peridex] 5 ml PO DAILY PRN 02/01/21 03/01/21 History Clindamycin HCl 600 mg PO DIRECTED PRN 02/01/21 03/01/21 History Ezetimibe [Zetia] 10 mg PO DAILY 02/01/21 03/01/21 History Fluticasone Nasal [place] [Flonase 1 spray EA NOSTRIL BID 02/01/21 03/01/21 History Nasal [place]] Omeprazole [PriLOSEC] 20 mg PO BID 02/01/21 03/01/21 History Acetaminophen [Children's 960 mg PO Q8H PRN 03/01/21 03/01/21 History Acetaminophen] Cholecalciferol [Vitamin D3 (25 50 mcg PO BID 03/01/21 03/01/21 History Mcg = 1000 Iu)] Simvastatin [Zocor] 20 mg PO HS 03/01/21 03/01/21 History metFORMIN HCL [Glucophage] 1,000 mg PO BID 03/01/21 03/01/21 History Allergies Allergy/AdvReac Type Severity Reaction Status Date / Time cefazolin [From Kefzol] Allergy Rash/Hives Verified 03/01/21 21:19 enalaprilat [From Vasotec] Allergy Cough,rash Verified 03/01/21 21:19 Penicillins Allergy Rash/Hives Verified 03/01/21 21:19 prochlorperazine Allergy facial Verified 03/01/21 21:19 [From Compazine] twitching, loss of sensation of mouth Sulfa (Sulfonamide Allergy Rash/Hives Verified 03/01/21 21:19 Antibiotics) Physical Exam Vitals: Vital Signs Temp Pulse Pulse Pulse Resp BP Pulse Ox 03/04/21 10:00 96 18 140/78 98 03/04/21 09:32 91 18 138/85 99 03/04/21 09:16 104 H 18 133/79 99 03/04/21 09:02 94 18 133/68 100 03/04/21 08:46 97.3 F L 104 H 18 150/81 99 03/04/21 07:37 94 94 16 164/79 97 03/04/21 07:10 98.1 F 99 99 18 179/93 96 03/04/21 04:25 97.8 F 97 18 133/83 98 03/03/21 19:52 97.9 F 102 H 16 153/89 96 03/03/21 19:25 102 H 16 03/03/21 12:23 97.6 F 107 H 16 134/73 96 03/03/21 11:31 98 18 Intake and Output 03/03/21 03/04/21 03/04/21 22:59 06:59 14:59 Intake Total 1560 700 Output Total 2 Balance 1560 698 Intake: IV 700 Intake, IV Titration 1560 Amount Sodium Chloride 0.9% 1, 1560 000 ml @ 130 mls/hr IV . Q7H42M [facility] Rx#:[id number] Output: Estimated Blood Loss 2 Other: Voiding Method Toilet # Voids 1 # Bowel Movements 1 General appearance: The patient is alert, oriented, appears in no acute distress. HET: Head is normocephalic and atraumatic. Conjunctiva pink. Sclera anicteric. Neck: Supple without lymphadenopathy. Trachea midline. Heart: S1 S2. Regular rate and rhythm. Lungs: Clear to auscultation. Abdomen: Soft, nontender, nondistended with bowel sounds. No guarding or rigidity. Skin: No rashes. No jaundice. Extremities: Normal skin color and turgor. No pedal edema. Neurological: No focal deficits. Alert and oriented x3. Results CBC & Chem 7: 03/03/21 07:17 03/04/21 06:03 Labs: Abnormal Lab Results - Last 24 Hours (Table) 03/03/21 03/03/21 03/03/21 Range/Units 07:17 07:17 11:50 RDW 15.2 H (11.5-14.5) % Eosinophils # 0.42 H (0.04-0.35) X 10*3/uL Chloride (98-107) mmol/L BUN 24 H (9-20) mg/dL Creatinine 1.28 H (0.66-1.25) mg/dL Glucose 172 H (74-99) mg/dL POC Glucose (mg/dL) 176 H (75-99) mg/dL 03/03/21 03/03/21 03/04/21 Range/Units 17:03 20:10 06:03 RDW (11.5-14.5) % Eosinophils # (0.04-0.35) X 10*3/uL Chloride 108 H (98-107) mmol/L BUN (9-20) mg/dL Creatinine (0.66-1.25) mg/dL Glucose 143 H (74-99) mg/dL POC Glucose (mg/dL) 124 H 140 H (75-99) mg/dL 03/04/21 Range/Units 07:00 RDW (11.5-14.5) % Eosinophils # (0.04-0.35) X 10*3/uL Chloride (98-107) mmol/L BUN (9-20) mg/dL Creatinine (0.66-1.25) mg/dL Glucose (74-99) mg/dL POC Glucose (mg/dL) 145 H (75-99) mg/dL Assessment and Plan (1) Dysphagia Narrative/Plan: 70-year-old male recently diagnosed with esophageal cancer presented to the emergency department directed by his oncologist Dr. Umaña for dehydration. Patient has been having difficulty with swallowing solids and even liquids. Gastroenterology was asked to see patient regarding dysphagia, requesting EGD with stenting. Patient states he continues to have difficulty with swallowing even liquids with regurgitation at times. This morning a port was placed. It was discussed with both the patient and his that there is a possibility of stent may not be able to be placed, if this is the case, recommend patient would be for PEG tube placement with general surgery. Current Visit: Yes Status: Acute Code(s): R13.10 - DYSPHAGIA, UNSPECIFIED SNOMED Code(s): 17930436 (2) Esophageal cancer Current Visit: Yes Status: Acute Code(s): C15.9 - MALIGNANT NEOPLASM OF ESOPHAGUS, UNSPECIFIED SNOMED Code(s): 658447073 (3) Dehydration Current Visit: Yes Status: Acute Code(s): E86.0 - DEHYDRATION SNOMED Code(s): 71115095 (4) Failure to thrive in adult Current Visit: Yes Status: Acute Code(s): R62.7 - ADULT FAILURE TO THRIVE SNOMED Code(s): 427002575 Plan: 1. Nothing by mouth 2. Hold Lovenox 3. Plan is for EGD with metal stent placement, procedure discussed with patient in detail. Patient willing to proceed. 4. Continue with medical management 5. Discussed with surgery PA, patient may require PEG tube placement if unable to to place stent Thank you for allowing us to participate in the care of the patient, the GI service will sign off, gastroenterology will not be available at the hospital this weekend. If further evaluation by gastroenterology is required the patient will need transfer as per the primary team's discretion. Dr. Alysha Sheehan I agree with the dictator's note, documented as a scribe by Cynthia Loomis.
[2021-03-04 11:24] LABS: Glucose,Whole Blood 130 mg/dL (75-99)
--- NOTE | 2021-03-04 12:51 | P.PN ---
Subjective Progress Note Date: 03/03/21 This is a 70-year-old male patient of Dr. Fagan who presented to ER with concerns of poor oral intake and recent diagnosis of esophageal cancer. Patient reports that he had prolonged difficulty with swallowing and a 60 pound weight loss in December and underwent EGD in January with pathology consistent with invasive poorly differentiated adenocarcinoma esophagus. Patient underwent a PET scan is completed on 02/28/2021 which confirmed distal esophageal neoplasm with abnormal thoracic and bilateral separate clavicle 18 of the and abnormal left adrenal suspected metastatic lesion. Patient reports that he has been unable to keep down any fluids or food at home which prompted his oncologist to go to ER for further evaluation. Additional medical history includes asthma, COPD, diabetes mellitus, hyperlipidemia, hypertension, osteoarthritis and sleep apnea. Patient was found to have a creatinine at 1.82 and bun 40. Magnesium also low at 1.5. Patient has been started on IV fluids. At this time oncology services and cardiothoracic surgery has been consulted. Repeat labs have been ordered On 03/03/2021 patient was seen and examined on the medical floor he is alert and oriented 3 in no apparent distress there is no fever or chills no headache or dizziness no chest pain no shortness of breath no cough no nausea or vomiting no abdominal pain no diarrhea and no urinary symptoms Objective - Vital Signs Vital signs: Vital Signs Temp 97.6 F 03/03/21 12:23 Pulse 107 H 03/03/21 12:23 Resp 16 03/03/21 12:23 BP 134/73 03/03/21 12:23 Pulse Ox 96 03/03/21 12:23 Intake & Output 03/02/21 03/03/21 03/03/21 18:59 06:59 18:59 Intake Total 1560 540 Balance 1560 540 Intake: Intake, IV Titration 1560 Amount Sodium Chloride 0.9% 1, 1560 000 ml @ 130 mls/hr IV . Q7H42M [facility] Rx#:[id number] Oral 540 Other: Voiding Method Toilet Toilet Toilet # Voids 1 2 - Exam Head normocephalic Neck supple Lungs clear to auscultation bilaterally no wheezing or crackles Heart regular rate and rhythm S1-S2, no rub or gallop Abdomen is soft nontender nondistended positive bowel sounds no hepatosplenomegaly Extremities no edema Neuro alert and orientated to 3 - Labs CBC & Chem 7: 01/27/22 07:17 03/04/21 06:03 Labs: Abnormal Lab Results - Last 24 Hours (Table) 03/02/21 03/03/21 03/03/21 Range/Units 19:57 06:50 07:17 RDW 15.2 H (11.5-14.5) % Eosinophils # 0.42 H (0.04-0.35) X 10*3/uL BUN (9-20) mg/dL Creatinine (0.66-1.25) mg/dL Glucose (74-99) mg/dL POC Glucose (mg/dL) 158 H 149 H (75-99) mg/dL 03/03/21 03/03/21 03/03/21 Range/Units 07:17 11:50 17:03 RDW (11.5-14.5) % Eosinophils # (0.04-0.35) X 10*3/uL BUN 24 H (9-20) mg/dL Creatinine 1.28 H (0.66-1.25) mg/dL Glucose 172 H (74-99) mg/dL POC Glucose (mg/dL) 176 H 124 H (75-99) mg/dL Assessment and Plan Assessment: Progressive nausea and vomiting secondary to esophageal cancer Dehydration with acute kidney injury Recent diagnosis of adenocarcinoma of the esophagus per EGD on 02/03/2021 Suspected metastatic lesion on left adrenal and abnormal thoracic bilateral sub- clavicle adenopathy seen on PET scan on 02/28/2021 History of 60 pound weight loss since early January 2021 History of essential hypertension History of GERD Sleep apnea DVT prophylaxis SCDs due to possible surgical intervention. GI prophylaxis Protonix Continue IV hydration Oncology and cardiothoracic surgery consulted Repeat labs ordered
[2021-03-04] MEDS ORDERED: MIDAZOLAM 2 MG/2 ML VIAL ONE (13:08)
[2021-03-04] MEDS ORDERED: KETAMINE 10 MG/ML 20 ML VIAL ONE (13:08)
--- NOTE | 2021-03-04 13:41 | P.PCN ---
Date of Procedure: 03/04/21 Procedure(s) Performed: BRIEF HISTORY: Patient is a 70-year-old, pleasant, white male recently diagnosed with esophageal adenocarcinoma in January 2021. He presented with dysphagia and he underwent an upper endoscopy on 12/05/2020 that revealed distal esophageal ulcerated mass extending from 36-41 cm from the incisors and biopsies revealed adenocarcinoma. Because of progressive weight loss and was in dysphagia and he scheduled for an EGD with expandable metal stent today PROCEDURE PERFORMED: Esophagogastroduodenoscopy with self expandable metal stent placement. PREOPERATIVE DIAGNOSIS: Progressive dysphagia to solids/distal esophageal ulcerated mass was esophageal cancer. IV sedation per anesthesia. PROCEDURE: After informed consent was obtained, the patient was brought into the endoscopy unit. IV sedation was administered by Anesthesia under continuous monitoring. Initially the Olympus GIF-140 video endoscope was inserted into the mouth. Esophagus intubated without any difficulty. It was gradually advanced into the distal esophagus and there was a ulcerated esophageal mass identified extending from 35-41 cm from the incisors. With gentle pressure I was able to advance scope into the stomach and duodenum and carefully examined. The bulb and the second part of the duodenum appeared normal. The scope at this time was withdrawn to the stomach, adequately insufflated with air, and upon careful examination, mucosa of the antrum, body, cardia and the fundus appeared normal. The scope was then withdrawn into the esophagus. The stomach guidewire was passed through the scope and into the stomach. Under fluoroscopy the proximal and the distal margin of the esophageal stricture was markedly the skin by placing metal clips. Following this the scope was gently withdrawn. A self- expandable metal stent measuring 18 x 97 mm which was partially covered was then passed over the guidewire under fluoroscopy guidance into the distal esophagus. At this time the scope was passed into the mouth and esophagus intubated without any difficulty and was positioned just proximal to the esophageal stricture. Under fluoroscopy the esophagus and was gradually deployed and the position appeared well. The patient tolerated the procedure well. IMPRESSION: 1.[Distal esophageal ulcerated mass extending from 35-41 cm from the incisors status post 18 97 mm self expandable metal stent placement under fluoroscopy guidance as mentioned above RECOMMENDATIONS: The findings of this examination were discussed with the patient.. He'll be on a soft diet today. Pain medications as needed.
--- NOTE | 2021-03-04 13:59 | FL ---
Fluoroscopy INDICATION: Pain FINDINGS: Fluoroscopy time: 1 minute 50 seconds. Images obtained: 1. IMPRESSIONS: 1. Documentation of fluoroscopy.
--- NOTE | 2021-03-04 17:05 | P.PN ---
Subjective Progress Note Date: 03/04/21 Principal diagnosis: Esophageal Cancer Status post Esophageal stent and appears tp be working appropriately, also has his port placed today, thank you to GI and Surgery Objective - Vital Signs Vital signs: Vital Signs Temp 98.2 F 03/04/21 11:38 Pulse 100 03/04/21 11:45 Resp 16 03/04/21 11:45 BP 126/76 03/04/21 11:38 Pulse Ox 98 03/04/21 11:38 Intake & Output 03/03/21 03/04/21 03/04/21 18:59 06:59 18:59 Intake Total 1560 1000 Output Total 2 Balance 1560 998 Intake: IV 1000 Intake, IV Titration 1560 Amount Sodium Chloride 0.9% 1, 1560 000 ml @ 130 mls/hr IV . Q7H42M [facility] Rx#:[id number] Output: Estimated Blood Loss 2 Other: Voiding Method Toilet Toilet Toilet # Voids 2 1 # Bowel Movements 1 - Exam Obese - Constitutional General appearance: cooperative, no acute distress - EENT Eyes: EOMI Erythema rash on bilateral arms - Respiratory Respiratory: bilateral: diminished - Cardiovascular Rhythm: regularly irregular - Gastrointestinal General gastrointestinal: soft - Integumentary Integumentary: pale - Musculoskeletal Musculoskeletal: generalized weakness - Psychiatric Psychiatric: A&O x's 3, appropriate affect, intact judgment & insight - Labs CBC & Chem 7: 03/03/21 07:17 03/04/21 06:03 Labs: Abnormal Lab Results - Last 24 Hours (Table) 03/03/21 03/03/21 03/04/21 Range/Units 17:03 20:10 06:03 Chloride 108 H (98-107) mmol/L Glucose 143 H (74-99) mg/dL POC Glucose (mg/dL) 124 H 140 H (75-99) mg/dL 03/04/21 03/04/21 Range/Units 07:00 11:22 Chloride (98-107) mmol/L Glucose (74-99) mg/dL POC Glucose (mg/dL) 145 H 130 H (75-99) mg/dL Assessment and Plan (1) Dehydration Current Visit: Yes Status: Acute Code(s): E86.0 - DEHYDRATION SNOMED Code(s): 27218652 (2) Esophageal cancer Current Visit: Yes Status: Acute Code(s): C15.9 - MALIGNANT NEOPLASM OF ESOPHAGUS, UNSPECIFIED SNOMED Code(s): 372936045 Plan: Status post MP and Status post Esophageal stent. PLan to follow up with Dr. Umaña in office within the next week for treatment plan Discussed with GI and Surgery Physician Attest: I have completed the full history and physical and agree with above dictation, dictated as a scribe.
[2021-03-04 17:25] LABS: Glucose,Whole Blood 144 mg/dL (75-99)
--- NOTE | 2021-03-04 17:25 | P.CONS ---
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 He presents to the hospital secondary to inability to tolerate oral intake and significant dehydration. The patient's oncologic history began when he developed increased dysphagia and mid December. He reports a long-standing history of GERD. He was referred for upper endoscopy, which was performed by Dr. Sheehan. This was performed on February 03, and revealed an ulcerative mass at the distal esophagus spanning from 35-41 cm was significant luminal narrowing. There was a second 2 cm friable lesion noted at the 25 cm jerri. Biopsy of both sites was consistent with poorly differentiated adenocarcinoma, HER-2 negative. The patient states that shortly after his biopsies his swallowing did get worse. He was soon unable to eat any food, and only liquids were traveling albeit slowly. He was even having difficulty with his own secretions. He states he has lost a proximally 60 pounds in 1 month. He underwent a PET/CT on February 26, which revealed abnormal thickening at the distal esophagus with an SUV of 7.4. There is abnormal mediastinal adenopathy involving the prevascular space, subcarinal and paraesophageal regions. There was suspicious bilateral supraclavicular adenopathy as well as left axillary adenopathy. Abnormal uptake was also seen and a 2 cm left adrenal mass. The patient was eventually sent to the ER by his medical oncologist on March 01 secondary to severe dehydration. The patient states he improved markedly with fluids, and had both a port as well as a esophageal stent placed earlier today. At this time, the patient reports he was able to drink water without obstruction, but he is having quite a bit of chest discomfort secondary to the stent. Review of Systems Constitutional: Denies chills, Denies fever Eyes: denies decreased vision Ears: deny: decreased hearing Ears, nose, mouth and throat: Denies headache Cardiovascular: Reports chest pain, Reports rapid heart beat, Denies edema Respiratory: Denies congestion, Denies cough, Denies dyspnea Gastrointestinal: Reports early satiety, Reports nausea, Denies abdominal pain Genitourinary: Denies flank pain Integumentary: Denies rash Neurological: Denies ataxia, Denies confusion, Denies memory loss, Denies paresthesias Psychiatric: Denies anxiety, Denies confusion Past Medical History Past Medical History: Asthma, Cancer, COPD, Diabetes Mellitus, GERD/Reflux, Hyperlipidemia, Hypertension, Osteoarthritis (OA), Sleep Apnea/CPAP/BIPAP Additional Past Medical History / Comment(s): uses CPAP, orthostatic vertigo, dysphagia, severe heartburn & burning for about 6 weeks,. hx colon polyps, year round allergies since childhood History of Any Multi-Drug Resistant Organisms: None Reported Past Surgical History: Hernia Repair, Joint Replacement, Orthopedic Surgery Additional Past Surgical History / Comment(s): cystoscopy, both knees replaced, multiple arthroscopies knees, colonoscopies, dental implant, right hip replaced Past Anesthesia/Blood Transfusion Reactions: Previous Problems w/ Anesthesia, Family History of Problems w/ Anesthesia, Motion Sickness Additional Past Anesthesia/Blood Transfusion Reaction / Comm: very combative when waking up from general anesthesia, anxious & agitated w/IV sedation,. mother ponv Past Psychological History: Anxiety Smoking Status: Never smoker Past Alcohol Use History: Rare Past Drug Use History: None Reported - Past Family History Father Brother(s) Family Medical History: Cancer, Deep Vein Thrombosis (DVT) Additional Family Medical History / Comment(s): colon cancer Mother Family Medical History: Cancer Additional Family Medical History / Comment(s): colon cancer Medications and Allergies Home Medications Medication Instructions Recorded Confirmed Type ALPRAZolam [Xanax] 0.25 mg PO TID PRN 01/28/16 03/01/21 History Aspirin 325 mg PO DAILY 01/28/16 03/01/21 History Furosemide [Lasix] 40 mg PO DAILY 01/28/16 03/01/21 History Losartan/Hydrochlorothiazide 1 tab PO DAILY 01/28/16 03/01/21 History [Hyzaar 100-25 Tablet] Metoprolol Succinate (ER) [Toprol 100 mg PO BID 01/28/16 03/01/21 History XL] Optive Eye Drops 1 drop BOTH EYES BID 01/28/16 03/01/21 History Potassium Chloride [Klor-Con 10 ER] 10 meq PO TID 01/28/16 03/01/21 History Vit C/E/Zn/Coppr/Lutein/Zeaxan 1 cap PO BID 01/28/16 03/01/21 History [Preservision Areds 2 Softgel] Vitamin A [Vitamin A (8,000 Units 8,000 unit PO DAILY 01/28/16 03/01/21 History = 2,400 MCG)] amLODIPine [Norvasc] 5 mg PO DAILY@1000 01/28/16 03/01/21 History Ascorbic Acid [Vitamin C] 1,000 mg PO DAILY 10/01/19 03/01/21 History Calcium Carbonate [Tums] 1,000 mg PO ACHS PRN 10/01/19 03/01/21 History Fexofenadine HCl [Rasheeda Allergy] 180 mg PO DAILY 10/01/19 03/01/21 History Fluticasone/Salmeterol [Advair 1 puff INHALATION RT-Q12H 10/01/19 03/01/21 History 100-50 Diskus] Meloxicam [Mobic] 7.5 mg PO DAILY@1700 10/01/19 03/01/21 History glipiZIDE [Glucotrol] 5 mg PO BID@0700,1700 10/01/19 03/01/21 History Albuterol Sulfate [Ventolin HFA] 1 - 2 puff INHALATION RT-Q4H PRN 02/01/21 0 03/01/21 History Chlorhexidine Gluconate [Peridex] 5 ml PO DAILY PRN 02/01/21 03/01/21 History Clindamycin HCl 600 mg PO DIRECTED PRN 02/01/21 03/01/21 History Ezetimibe [Zetia] 10 mg PO DAILY 02/01/21 03/01/21 History Fluticasone Nasal Forbes [Flonase 1 spray EA NOSTRIL BID 02/01/21 03/01/21 History Nasal Forbes] Omeprazole [PriLOSEC] 20 mg PO BID 02/01/21 03/01/21 History Acetaminophen [Children's 960 mg PO Q8H PRN 03/01/21 03/01/21 History Acetaminophen] Cholecalciferol [Vitamin D3 (25 50 mcg PO BID 03/01/21 03/01/21 History Mcg = 1000 Iu)] Simvastatin [Zocor] 20 mg PO HS 03/01/21 03/01/21 History metFORMIN HCL [Glucophage] 1,000 mg PO BID 03/01/21 03/01/21 History Allergies Allergy/AdvReac Type Severity Reaction Status Date / Time cefazolin [From Kefzol] Allergy Rash/Hives Verified 03/01/21 21:19 enalaprilat [From Vasotec] Allergy Cough,rash Verified 03/01/21 21:19 Penicillins Allergy Rash/Hives Verified 03/01/21 21:19 prochlorperazine Allergy facial Verified 03/01/21 21:19 [From Compazine] twitching, loss of sensation of mouth Sulfa (Sulfonamide Allergy Rash/Hives Verified 03/01/21 21:19 Antibiotics) Physical Exam Vitals: Vital Signs Temp Pulse Pulse Pulse Resp BP Pulse Ox 03/04/21 11:45 100 16 03/04/21 11:38 98.2 F 104 H 16 126/76 98 03/04/21 10:00 96 18 140/78 98 03/04/21 09:32 91 18 138/85 99 03/04/21 09:16 104 H 18 133/79 99 03/04/21 09:02 94 18 133/68 100 03/04/21 08:46 97.3 F L 104 H 18 150/81 99 03/04/21 07:37 94 94 16 164/79 97 03/04/21 07:10 98.1 F 99 99 18 179/93 96 03/04/21 04:25 97.8 F 97 18 133/83 98 03/03/21 19:52 97.9 F 102 H 16 153/89 96 03/03/21 19:25 102 H 16 Intake and Output 03/04/21 03/04/21 03/04/21 06:59 14:59 22:59 Intake Total 1560 1000 Output Total 2 Balance 1560 998 Intake: IV 1000 Intake, IV Titration 1560 Amount Sodium Chloride 0.9% 1, 1560 000 ml @ 130 mls/hr IV . Q7H42M [facility] Rx#:[id number] Output: Estimated Blood Loss 2 Other: Voiding Method Toilet - Constitutional General appearance: no acute distress - EENT Eyes: EOMI, PERRLA ENT: hearing grossly normal - Neck Neck: lymphadenopathy (shotty palpable supraclavicular adenopathy noted bilaterally, subcm.), normal ROM - Respiratory Respiratory: bilateral: CTA - Cardiovascular Rhythm: regular (rapid) - Gastrointestinal General gastrointestinal: no distended - Integumentary Integumentary: no calor, no cellulitis - Neurologic Neurologic: CNII-XII intact - Musculoskeletal Musculoskeletal: generalized weakness - Psychiatric Psychiatric: A&O x's 3, appropriate affect, intact judgment & insight Results CBC & Chem 7: 03/03/21 07:17 03/04/21 06:03 Labs: Abnormal Lab Results - Last 24 Hours (Table) 03/03/21 03/04/21 03/04/21 Range/Units 20:10 06:03 07:00 Chloride 108 H (98-107) mmol/L Glucose 143 H (74-99) mg/dL POC Glucose (mg/dL) 140 H 145 H (75-99) mg/dL 03/04/21 Range/Units 11:22 Chloride (98-107) mmol/L Glucose (74-99) mg/dL POC Glucose (mg/dL) 130 H (75-99) mg/dL Assessment and Plan Assessment: The patient is a 70-year-old male recently diagnosed with a 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 He presents to the hospital secondary to inability to tolerate oral intake and significant dehydration. The patient is status post placement of an esophageal stent, and seems to be tolerating fluids better. Plan: 1. Dysphagia to solids: Clearly secondary to the patient's underlying malignancy, the patient had his stent placed just earlier today. He states this is quite sore at this time. He is nervous to try eating too much, but was able to drink a small amount of water. He has been cleared to attempt soft foods. He states that the idea eating makes him quite nauseous at this time. 2. Esophageal cancer: As noted above, there is concern the patient has underlying metastatic disease with suspicious left axillary adenopathy as well as a suspicious left adrenal lesion. I explained that there may be a role for palliative radiotherapy in his case. We may not need to use the radiotherapy urgently if the patient has a good response to the stent placement however. We will continue to follow along with the patient during his hospital stay. Time with Patient: Greater than 30
[2021-03-04 20:49] LABS: Glucose,Whole Blood 166 mg/dL (75-99)
[2021-03-05] MEDS: HYDROmorphone 1 MG/ML 1 ML SYRINGE IVP PRN ×6 (03:11→20:53)
[2021-03-05] MEDS: ONDANSETRON 4 MG/2 ML VIAL IVP PRN ×2 (06:31→13:41)
[2021-03-05] MEDS: PANTOPRAZOLE 40 MG/10 ML VIAL IV SCH ×2 (07:48→20:52)
[2021-03-05] MEDS: INSULIN ASPART (NovoLOG) 100 UNIT/ML VIAL SQ SCH ×4 (07:49→20:49)
[2021-03-05 07:51] LABS: Glucose,Whole Blood 139 mg/dL (75-99)
[2021-03-05] MEDS: FLUTICASONE 50MCG/SPRAY NASAL 16GM EA NOSTRIL SCH ×2 (07:54→17:41)
[2021-03-05] MEDS: SYMBICORT 80-4.5 MCG INHALER INHALATION SCH ×2 (08:42→21:25)
[2021-03-05 12:55] LABS: Glucose,Whole Blood 162 mg/dL (75-99)
--- NOTE | 2021-03-05 12:59 | P.PN ---
Subjective Progress Note Date: 03/05/21 CHIEF COMPLAINT: Esophageal cancer HISTORY OF PRESENT ILLNESS: The patient is a 70-year-old male status post adequate placement for esophageal cancer. He denies any pain at the surgical site. Radiation and chemotherapy recommendations are pending. ROS: No fevers or chills. No new chest pain. PHYSICAL EXAM: VITAL SIGNS: Reviewed CONSTITUTIONAL: Well developed and in no acute distress. EYES: Conjuctivae without sclera icterus. Extraocular movements grossly intact. HEAD, EARS, NOSE, THROAT: Moist buccal mucosa. Head is atraumatic, normocephalic. No nasal drainage. RESPIRATORY: Non-labored respirations and equal bilateral excursions. Chest dressing clean dry and intact. CARDIOVASCULAR: Palpable 2+ radial pulses. ABDOMEN: No peritonitis. MUSCULOSKELETAL: No gross deformity of the lower extremities noted. No clubbing. No cyanosis. SKIN: Good skin turgor. Well perfused. NEUROLOGIC: Cranial nerves II through XII grossly intact. No focal or lateralizing signs. PSYCH: Alert to person. CLINICAL LABS: Reviewed. WBC and hemoglobin from 03/03/2021 within normal limits. Blood sugar glucose 130 to 166. ASSESSMENT: 1. Esophageal cancer. 2. Morbid obesity due to excess calories, BMI 38.9 PLAN: 1. Chemotherapy regimens per oncology 2. May shower. 3. Activity restrictions reviewed. Objective - Vital Signs Vital signs: Vital Signs Temp 98.4 F 03/05/21 04:35 Pulse 96 03/05/21 04:35 Resp 20 03/05/21 04:35 BP 110/82 03/05/21 04:35 Pulse Ox 98 03/05/21 04:35 Intake & Output 03/04/21 03/05/21 03/05/21 18:59 06:59 18:59 Intake Total 1390 300 Output Total 2 Balance 1388 300 Intake: IV 1390 Sodium Chloride 0.9% 1, 390 000 ml @ 130 mls/hr IV . Q7H42M [facility] Rx#:[id number] Oral 300 Output: Estimated Blood Loss 2 Other: Voiding Method Toilet Toilet # Voids 1 - Labs CBC & Chem 7: 03/03/21 07:17 03/04/21 06:03 Labs: Abnormal Lab Results - Last 24 Hours (Table) 01/28/22 01/28/22 01/29/22 Range/Units 17:21 20:32 07:40 POC Glucose (mg/dL) 144 H 166 H 139 H (75-99) mg/dL
[2021-03-05] MEDS ORDERED: methylPREDNISolone SOD SUCCI 125 MG/2 ML VIAL IV STA (13:33)
[2021-03-05] MEDS ORDERED: ACETAMINOPHEN ORAL SUSP (PEDS) 3,840 MG/120 ML BOTTLE PO PRN (13:40)
--- NOTE | 2021-03-05 13:43 | P.PN ---
Subjective Progress Note Date: 03/04/21 This is a 70-year-old male patient of Dr. Fagan who presented to ER with concerns of poor oral intake and recent diagnosis of esophageal cancer. Patient reports that he had prolonged difficulty with swallowing and a 60 pound weight loss in December and underwent EGD in January with pathology consistent with invasive poorly differentiated adenocarcinoma esophagus. Patient underwent a PET scan is completed on 02/28/2021 which confirmed distal esophageal neoplasm with abnormal thoracic and bilateral separate clavicle 18 of the and abnormal left adrenal suspected metastatic lesion. Patient reports that he has been unable to keep down any fluids or food at home which prompted his oncologist to go to ER for further evaluation. Additional medical history includes asthma, COPD, diabetes mellitus, hyperlipidemia, hypertension, osteoarthritis and sleep apnea. Patient was found to have a creatinine at 1.82 and bun 40. Magnesium also low at 1.5. Patient has been started on IV fluids. At this time oncology services and cardiothoracic surgery has been consulted. Repeat labs have been ordered On 03/03/2021 patient was seen and examined on the medical floor he is alert and oriented 3 in no apparent distress there is no fever or chills no headache or dizziness no chest pain no shortness of breath no cough no nausea or vomiting no abdominal pain no diarrhea and no urinary symptoms On 03/04/2021 patient was seen and examined on the medical floor he is alert and oriented 3 in no apparent distress there is no fever or chills no headache or dizziness no chest pain no shortness of breath no cough no nausea or vomiting no abdominal pain no diarrhea and no urinary symptoms, patient is scheduled today for esophageal stent placement Objective - Vital Signs Vital signs: Vital Signs Temp 98.2 F 03/04/21 11:38 Pulse 100 03/04/21 11:45 Resp 16 03/04/21 11:45 BP 126/76 03/04/21 11:38 Pulse Ox 98 03/04/21 11:38 Intake & Output 03/03/21 03/04/21 03/04/21 18:59 06:59 18:59 Intake Total 1560 700 Output Total 2 Balance 1560 698 Intake: IV 700 Intake, IV Titration 1560 Amount Sodium Chloride 0.9% 1, 1560 000 ml @ 130 mls/hr IV . Q7H42M [facility] Rx#:[id number] Output: Estimated Blood Loss 2 Other: Voiding Method Toilet Toilet Toilet # Voids 2 1 # Bowel Movements 1 - Exam Head normocephalic Neck supple Lungs clear to auscultation bilaterally no wheezing or crackles Heart regular rate and rhythm S1-S2, no rub or gallop Abdomen is soft nontender nondistended positive bowel sounds no hepatosplenomegaly Extremities no edema Neuro alert and orientated to 3 - Labs CBC & Chem 7: 03/03/21 07:17 03/04/21 06:03 Labs: Abnormal Lab Results - Last 24 Hours (Table) 03/03/21 03/03/21 03/04/21 Range/Units 17:03 20:10 06:03 Chloride 108 H (98-107) mmol/L Glucose 143 H (74-99) mg/dL POC Glucose (mg/dL) 124 H 140 H (75-99) mg/dL 03/04/21 03/04/21 Range/Units 07:00 11:22 Chloride (98-107) mmol/L Glucose (74-99) mg/dL POC Glucose (mg/dL) 145 H 130 H (75-99) mg/dL Assessment and Plan Assessment: Progressive nausea and vomiting secondary to esophageal cancer Dehydration with acute kidney injury Recent diagnosis of adenocarcinoma of the esophagus per EGD on 02/03/2021 Suspected metastatic lesion on left adrenal and abnormal thoracic bilateral sub- clavicle adenopathy seen on PET scan on 02/28/2021 History of 60 pound weight loss since early January 2021 History of essential hypertension History of GERD Sleep apnea DVT prophylaxis SCDs due to possible surgical intervention. GI prophylaxis Protonix Continue IV hydration Oncology and cardiothoracic surgery consulted Repeat labs ordered
--- NOTE | 2021-03-05 13:44 | P.PN ---
Subjective Progress Note Date: 03/05/21 This is a 70-year-old male patient of Dr. Fagan who presented to ER with concerns of poor oral intake and recent diagnosis of esophageal cancer. Patient reports that he had prolonged difficulty with swallowing and a 60 pound weight loss in December and underwent EGD in January with pathology consistent with invasive poorly differentiated adenocarcinoma esophagus. Patient underwent a PET scan is completed on 02/28/2021 which confirmed distal esophageal neoplasm with abnormal thoracic and bilateral separate clavicle 18 of the and abnormal left adrenal suspected metastatic lesion. Patient reports that he has been unable to keep down any fluids or food at home which prompted his oncologist to go to ER for further evaluation. Additional medical history includes asthma, COPD, diabetes mellitus, hyperlipidemia, hypertension, osteoarthritis and sleep apnea. Patient was found to have a creatinine at 1.82 and bun 40. Magnesium also low at 1.5. Patient has been started on IV fluids. At this time oncology services and cardiothoracic surgery has been consulted. Repeat labs have been ordered On 03/03/2021 patient was seen and examined on the medical floor he is alert and oriented 3 in no apparent distress there is no fever or chills no headache or dizziness no chest pain no shortness of breath no cough no nausea or vomiting no abdominal pain no diarrhea and no urinary symptoms On 03/04/2021 patient was seen and examined on the medical floor he is alert and oriented 3 in no apparent distress there is no fever or chills no headache or dizziness no chest pain no shortness of breath no cough no nausea or vomiting no abdominal pain no diarrhea and no urinary symptoms, patient is scheduled today for esophageal stent placement. On 03/05/2021 patient was seen and examined on the medical floor he is alert and oriented 3 in no distress there is no fever or chills no headache or dizziness no chest pain no shortness of breath no cough no nausea or vomiting no abdominal pain no diarrhea and no urinary symptoms he is still having some pain at the esophageal stent placement site he is tolerating full liquid diet well at this time Objective - Vital Signs Vital signs: Vital Signs Temp 97.7 F 03/05/21 13:00 Pulse 107 H 03/05/21 13:00 Resp 19 03/05/21 13:00 BP 161/95 03/05/21 13:00 Pulse Ox 94 L 03/05/21 13:00 Intake & Output 0103/05/21 03/05/21 18:59 06:59 18:59 Intake Total 1390 300 Output Total 2 Balance 1388 300 Intake: IV 1390 Sodium Chloride 0.9% 1, 390 000 ml @ 130 mls/hr IV . Q7H42M [facility] Rx#:[id number] Oral 300 Output: Estimated Blood Loss 2 Other: Voiding Method Toilet Toilet # Voids 1 - Exam Head normocephalic Neck supple Lungs clear to auscultation bilaterally no wheezing or crackles Heart regular rate and rhythm S1-S2, no rub or gallop Abdomen is soft nontender nondistended positive bowel sounds no hepatosplenomegaly Extremities no edema Neuro alert and orientated to 3 - Labs CBC & Chem 7: 03/03/21 07:17 03/04/21 06:03 Labs: Abnormal Lab Results - Last 24 Hours (Table) 03/04/21 03/04/21 03/05/21 Range/Units 17:21 20:32 07:40 POC Glucose (mg/dL) 144 H 166 H 139 H (75-99) mg/dL 03/05/21 Range/Units 12:53 POC Glucose (mg/dL) 162 H (75-99) mg/dL Assessment and Plan Assessment: Progressive nausea and vomiting secondary to esophageal cancer Dehydration with acute kidney injury Recent diagnosis of adenocarcinoma of the esophagus per EGD on 02/03/2021 Suspected metastatic lesion on left adrenal and abnormal thoracic bilateral sub- clavicle adenopathy seen on PET scan on 02/28/2021 History of 60 pound weight loss since early January 2021 History of essential hypertension History of GERD Sleep apnea DVT prophylaxis SCDs due to possible surgical intervention. GI prophylaxis Pro tonix Continue IV hydration Oncology and cardiothoracic surgery consulted Repeat labs ordered
[2021-03-05] MEDS ORDERED: NON FORMULARY DRUG (Omeprazole 20 MG Capsule) PO SCH (13:45)
[2021-03-05] MEDS: SODIUM CHLORIDE 0.9% 1,000 ML IV SCH ×2 (14:24→17:29)
[2021-03-05] MEDS: LOSARTAN-HCTZ 50-12.5 MG 1 EACH TAB PO SCH (14:36)
[2021-03-05] MEDS: EZETIMIBE 10 MG TAB PO SCH (14:36)
[2021-03-05] MEDS: ASCORBIC ACID 500 MG TAB PO SCH (14:36)
[2021-03-05] MEDS: FUROSEMIDE 40 MG TAB PO SCH (14:36)
[2021-03-05] MEDS: OPTIVE EYE BOTH EYES SCH ×2 (14:36→20:52)
[2021-03-05 17:23] LABS: Glucose,Whole Blood 173 mg/dL (75-99)
[2021-03-05] MEDS: POTASSIUM CHLORIDE ER 10 MEQ TAB.ER.PRT PO SCH ×2 (17:39→20:49)
[2021-03-05 20:38] LABS: Glucose,Whole Blood 218 mg/dL (75-99)
[2021-03-05] MEDS: ATORVASTATIN 10 MG TAB PO SCH (20:49)
[2021-03-06] MEDS: ONDANSETRON 4 MG/2 ML VIAL IVP PRN ×3 (05:51→22:07)
[2021-03-06] MEDS: SODIUM CHLORIDE 0.9% 1,000 ML IV SCH ×3 (05:54→17:49)
[2021-03-06 07:33] LABS: Glucose,Whole Blood 203 mg/dL (75-99)
[2021-03-06] MEDS: SYMBICORT 80-4.5 MCG INHALER INHALATION SCH ×2 (08:12→19:56)
[2021-03-06] MEDS: OPTIVE EYE BOTH EYES SCH ×2 (08:29→22:08)
[2021-03-06] MEDS: LOSARTAN-HCTZ 50-12.5 MG 1 EACH TAB PO SCH (08:40)
[2021-03-06] MEDS: POTASSIUM CHLORIDE ER 10 MEQ TAB.ER.PRT PO SCH ×3 (08:40→22:07)
[2021-03-06] MEDS: FLUTICASONE 50MCG/SPRAY NASAL 16GM EA NOSTRIL SCH ×2 (08:40→16:31)
[2021-03-06] MEDS: FUROSEMIDE 40 MG TAB PO SCH (08:40)
[2021-03-06] MEDS: EZETIMIBE 10 MG TAB PO SCH (08:40)
[2021-03-06] MEDS: ALPRAZolam 0.25 MG TAB PO PRN ×3 (08:40→22:07)
[2021-03-06] MEDS: PANTOPRAZOLE 40 MG/10 ML VIAL IV SCH ×2 (08:40→22:07)
[2021-03-06] MEDS: INSULIN ASPART (NovoLOG) 100 UNIT/ML VIAL SQ SCH ×4 (08:41→22:08)
[2021-03-06] MEDS: ASCORBIC ACID 500 MG TAB PO SCH (08:41)
[2021-03-06 09:18] LABS: Basophils # (A) 0.02 X 10*3/uL (0.00-0.10); Basophils % (A) 0.2 %; Eosinophils # (A) 0 X 10*3/uL (0.04-0.35); Eosinophils % (A) 0 %; HCT 37.1 % (39.6-50.0); HGB 12.6 g/dL (13.0-17.0); Immature Grans, Automated 0.3 %; Lymphocytes # (A) 0.72 X 10*3/uL (0.90-5.00); MCH 29.5 pg (27.0-32.0); MCV 86.9 fL (80.0-97.0); Mean Platelet Volume 9.6 fL (9.5-12.2); Monocytes % (A) 6.6 %; NRBC Per 100 WBC 0.2 /100 WBCS (0.0-0.0); Neutrophils # (A) 7.67 X 10*3/uL (1.80-7.70); Neutrophils % (A) 84.9 %; Platelet Count 268 X 10*3/uL (140-440); RBC 4.27 X 10*6/uL (4.40-5.60); RDW 15.6 % (11.5-14.5); WBC 9.04 X 10*3/uL (4.50-10.00)
[2021-03-06 10:19] LABS: African American GFR (CKD) 87.6 (60.0-200.0); Albumin 3.4 g/dL (3.8-4.9); Albumin/Globulin Ratio 1.75 (1.60-3.17); Anion Gap 16.9 mmol/L (10.00-18.00); BUN/Creat Ratio 11.68 Ratio (12.00-20.00); Blood Urea Nitrogen 11.8 mg/dL (9.0-27.0); Calcium 8.3 mg/dL (8.7-10.3); Carbon Dioxide 20.7 mmol/L (20.0-27.5); Globulin 1.9 g/dL (1.6-3.3); Non-African American GFR(CKD) 75.5 (60.0-200.0); Potassium 3.4 mmol/L (3.5-5.5); Total Bilirubin 0.9 mg/dL (0.30-1.20); Total Protein 5.3 g/dL (6.2-8.2)
[2021-03-06] MEDS ORDERED: Potassium Replacement Protocol 1 EACH MISC MISCELLANE PRN (10:25)
--- NOTE | 2021-03-06 10:28 | P.PN ---
Subjective Progress Note Date: 03/06/21 This is a 70-year-old male patient of Dr. Fagan who presented to ER with concerns of poor oral intake and recent diagnosis of esophageal cancer. Patient reports that he had prolonged difficulty with swallowing and a 60 pound weight loss in December and underwent EGD in January with pathology consistent with invasive poorly differentiated adenocarcinoma esophagus. Patient underwent a PET scan is completed on 02/28/2021 which confirmed distal esophageal neoplasm with abnormal thoracic and bilateral separate clavicle 18 of the and abnormal left adrenal suspected metastatic lesion. Patient reports that he has been unable to keep down any fluids or food at home which prompted his oncologist to go to ER for further evaluation. Additional medical history includes asthma, COPD, diabetes mellitus, hyperlipidemia, hypertension, osteoarthritis and sleep apnea. Patient was found to have a creatinine at 1.82 and bun 40. Magnesium also low at 1.5. Patient has been started on IV fluids. At this time oncology services and cardiothoracic surgery has been consulted. Repeat labs have been ordered On 03/03/2021 patient was seen and examined on the medical floor he is alert and oriented 3 in no apparent distress there is no fever or chills no headache or dizziness no chest pain no shortness of breath no cough no nausea or vomiting no abdominal pain no diarrhea and no urinary symptoms On 03/04/2021 patient was seen and examined on the medical floor he is alert and oriented 3 in no apparent distress there is no fever or chills no headache or dizziness no chest pain no shortness of breath no cough no nausea or vomiting no abdominal pain no diarrhea and no urinary symptoms, patient is scheduled today for esophageal stent placement. On 03/05/2021 patient was seen and examined on the medical floor he is alert and oriented 3 in no distress there is no fever or chills no headache or dizziness no chest pain no shortness of breath no cough no nausea or vomiting no abdominal pain no diarrhea and no urinary symptoms he is still having some pain at the esophageal stent placement site he is tolerating full liquid diet well at this time On 03/06/2021 to patient's alert and oriented 3. Patient reports he's had increased so that nausea and vomiting. Patient reports minimal oral intake. Awaiting oncology for further recommendations. Surgical, GI, oncology and interventional radiology services are following. Patient denies chest pain or shortness breath. Patient denies nausea vomiting or diarrhea. Patient denies any urinary burning or frequency Objective - Vital Signs Vital signs: Vital Signs Temp 98.2 F 03/06/21 04:45 Pulse 104 H 03/06/21 04:45 Resp 20 03/06/21 04:45 BP 161/80 03/06/21 04:45 Pulse Ox 97 03/06/21 04:45 Intake & Output 03/05/21 03/06/21 03/06/21 18:59 06:59 18:59 Intake Total 500 400 Balance 500 400 Weight 136 kg Intake: IV 500 Sodium Chloride 0.9% 1, 500 000 ml @ 130 mls/hr IV . Q7H42M [facility] Rx#:[id number] Oral 400 Other: Voiding Method Toilet # Voids 1 - Exam Head normocephalic Neck supple Lungs clear to auscultation bilaterally no wheezing or crackles Heart regular rate and rhythm S1-S2, no rub or gallop Abdomen is soft nontender nondistended positive bowel sounds no hepatosplenomegaly Extremities no edema Neuro alert and orientated to 3 - Labs CBC & Chem 7: 03/06/21 06:52 03/06/21 06:52 Labs: Abnormal Lab Results - Last 24 Hours (Table) 03/05/21 03/05/21 03/05/21 Range/Units 12:53 17:07 20:26 RBC (4.40-5.60) X 10*6/uL Hgb (13.0-17.0) g/dL Hct (39.6-50.0) % RDW (11.5-14.5) % Absolute Nucleated RBC (0.00-0.00) X 10*3/uL Lymphocytes # (0.90-5.00) X 10*3/uL Eosinophils # (0.04-0.35) X 10*3/uL NRBC/100 WBC Diff (0.0-0.0) /100 WBCS Potassium (3.5-5.5) mmol/L BUN/Creatinine Ratio (12.00-20.00) Ratio Glucose (70-110) mg/dL POC Glucose (mg/dL) 162 H 173 H 218 H (75-99) mg/dL Calcium (8.7-10.3) mg/dL Total Protein (6.2-8.2) g/dL Albumin (3.8-4.9) g/dL 03/06/21 03/06/21 03/06/21 Range/Units 06:52 06:52 07:25 RBC 4.27 L (4.40-5.60) X 10*6/uL Hgb 12.6 L (13.0-17.0) g/dL Hct 37.1 L (39.6-50.0) % RDW 15.6 H (11.5-14.5) % Absolute Nucleated RBC 0.02 H (0.00-0.00) X 10*3/uL Lymphocytes # 0.72 L (0.90-5.00) X 10*3/uL Eosinophils # 0 L (0.04-0.35) X 10*3/uL NRBC/100 WBC Diff 0.2 H (0.0-0.0) /100 WBCS Potassium 3.4 L (3.5-5.5) mmol/L BUN/Creatinine Ratio 11.68 L (12.00-20.00) Ratio Glucose 196 H (70-110) mg/dL POC Glucose (mg/dL) 203 H (75-99) mg/dL Calcium 8.3 L (8.7-10.3) mg/dL Total Protein 5.3 L (6.2-8.2) g/dL Albumin 3.4 L (3.8-4.9) g/dL Assessment and Plan Assessment: Progressive nausea and vomiting secondary to esophageal cancer Dehydration with acute kidney injury Recent diagnosis of adenocarcinoma of the esophagus per EGD on 02/03/2021 Suspected metastatic lesion on left adrenal and abnormal thoracic bilateral sub- clavicle adenopathy seen on PET scan on 02/28/2021 History of 60 pound weight loss since early January 2021 History of essential hypertension History of GERD Sleep apnea DVT prophylaxis SCDs due to possible surgical intervention. GI prophylaxis Protonix Continue IV hydration Oncology and cardiothoracic surgery consulted Status post esophageal stent placement on 03/04/2021 Repeat labs ordered
[2021-03-06] MEDS: POTASSIUM CHLORIDE 10 MEQ in WATER FOR INJECTION 1 100ML.BAG IVPB SCH ×4 (11:48→15:14)
[2021-03-06] MEDS: amLODIPine 5 MG TAB PO SCH (11:48)
[2021-03-06] MEDS: diphenhydrAMINE 25 MG CAP PO PRN (11:52)
[2021-03-06 11:56] LABS: Glucose,Whole Blood 141 mg/dL (75-99)
--- NOTE | 2021-03-06 14:00 | P.PN ---
Subjective Progress Note Date: 03/06/21 CHIEF COMPLAINT: Esophageal cancer HISTORY OF PRESENT ILLNESS: The patient is a 70-year-old male status post adequate placement for esophageal cancer. She reports new general nausea as well as generalized malaise due to low potassium. He is pending potassium infusions. ROS: No fevers or chills. No new chest pain. PHYSICAL EXAM: VITAL SIGNS: Reviewed CONSTITUTIONAL: Well developed and in no acute distress. EYES: Conjuctivae without sclera icterus. Extraocular movements grossly intact. HEAD, EARS, NOSE, THROAT: Moist buccal mucosa. Head is atraumatic, normocephalic. No nasal drainage. RESPIRATORY: Non-labored respirations and equal bilateral excursions. Chest dressing clean dry and intact. CARDIOVASCULAR: Palpable 2+ radial pulses. ABDOMEN: No peritonitis. MUSCULOSKELETAL: No gross deformity of the lower extremities noted. No clubbing. No cyanosis. SKIN: Good skin turgor. Well perfused. NEUROLOGIC: Cranial nerves II through XII grossly intact. No focal or lateraliz ing signs. PSYCH: Alert to person. CLINICAL LABS: Reviewed. Potassium low at 3.4 ASSESSMENT: 1. Esophageal cancer. 2. Morbid obesity due to excess calories, BMI 38.9 3. Hypokalemia PLAN: 1. Recommend potassium supplementation. 2. Recommend check of magnesium for refractory hypokalemia Objective - Vital Signs Vital signs: Vital Signs Temp 98 F 03/06/21 12:40 Pulse 110 H 03/06/21 12:40 Resp 20 03/06/21 12:40 BP 143/81 03/06/21 12:40 Pulse Ox 96 03/06/21 12:40 Intake & Output 03/05/21 03/06/21 03/06/21 18:59 06:59 18:59 Intake Total 500 400 Balance 500 400 Weight 136 kg Intake: IV 500 Sodium Chloride 0.9% 1, 500 000 ml @ 130 mls/hr IV . Q7H42M [facility] Rx#:[id number] Oral 400 Other: Voiding Method Toilet # Voids 1 - Labs CBC & Chem 7: 03/06/21 06:52 03/06/21 06:52 Labs: Abnormal Lab Results - Last 24 Hours (Table) 03/05/21 03/05/21 03/06/21 Range/Units 17:07 20:26 06:52 RBC 4.27 L (4.40-5.60) X 10*6/uL Hgb 12.6 L (13.0-17.0) g/dL Hct 37.1 L (39.6-50.0) % RDW 15.6 H (11.5-14.5) % Absolute Nucleated RBC 0.02 H (0.00-0.00) X 10*3/uL Lymphocytes # 0.72 L (0.90-5.00) X 10*3/uL Eosinophils # 0 L (0.04-0.35) X 10*3/uL NRBC/100 WBC Diff 0.2 H (0.0-0.0) /100 WBCS Potassium (3.5-5.5) mmol/L BUN/Creatinine Ratio (12.00-20.00) Ratio Glucose (70-110) mg/dL POC Glucose (mg/dL) 173 H 218 H (75-99) mg/dL Calcium (8.7-10.3) mg/dL Total Protein (6.2-8.2) g/dL Albumin (3.8-4.9) g/dL 03/06/21 03/06/21 03/06/21 Range/Units 06:52 07:25 11:44 RBC (4.40-5.60) X 10*6/uL Hgb (13.0-17.0) g/dL Hct (39.6-50.0) % RDW (11.5-14.5) % Absolute Nucleated RBC (0.00-0.00) X 10*3/uL Lymphocytes # (0.90-5.00) X 10*3/uL Eosinophils # (0.04-0.35) X 10*3/uL NRBC/100 WBC Diff (0.0-0.0) /100 WBCS Potassium 3.4 L (3.5-5.5) mmol/L BUN/Creatinine Ratio 11.68 L (12.00-20.00) Ratio Glucose 196 H (70-110) mg/dL POC Glucose (mg/dL) 203 H 141 H (75-99) mg/dL Calcium 8.3 L (8.7-10.3) mg/dL Total Protein 5.3 L (6.2-8.2) g/dL Albumin 3.4 L (3.8-4.9) g/dL Assessment and Plan (1) Hypokalemia Current Visit: Yes Status: Acute Code(s): E87.6 - HYPOKALEMIA SNOMED Code(s): 91699154 (2) Morbid (severe) obesity due to excess calories Current Visit: Yes Status: Acute Code(s): E66.01 - MORBID (SEVERE) OBESITY DUE TO EXCESS CALORIES SNOMED Code(s): 645711913 (3) BMI 40.0-44.9, adult Current Visit: Yes Status: Acute Code(s): Z68.41 - BODY MASS INDEX [BMI] 40.0-44.9, ADULT SNOMED Code(s): 303441511 (4) Dysphagia Current Visit: Yes Status: Acute Code(s): R13.10 - DYSPHAGIA, UNSPECIFIED SNOMED Code(s): 38511266 (5) Esophageal cancer Current Visit: Yes Status: Acute Code(s): C15.9 - MALIGNANT NEOPLASM OF ESOPHAGUS, UNSPECIFIED SNOMED Code(s): 951233241
[2021-03-06 17:15] LABS: Glucose,Whole Blood 155 mg/dL (75-99)
[2021-03-06 21:43] LABS: Glucose,Whole Blood 140 mg/dL (75-99)
[2021-03-06] MEDS: ATORVASTATIN 10 MG TAB PO SCH (22:07)
[2021-03-06] MEDS: HYDROmorphone 1 MG/ML 1 ML SYRINGE IVP PRN (23:52)
[2021-03-07] MEDS: SODIUM CHLORIDE 0.9% 1,000 ML IV SCH ×4 (04:51→21:58)
[2021-03-07 07:24] LABS: Glucose,Whole Blood 163 mg/dL (75-99)
[2021-03-07] MEDS: INSULIN ASPART (NovoLOG) 100 UNIT/ML VIAL SQ SCH ×4 (08:10→20:45)
[2021-03-07] MEDS: EZETIMIBE 10 MG TAB PO SCH (08:11)
[2021-03-07] MEDS: POTASSIUM CHLORIDE ER 10 MEQ TAB.ER.PRT PO SCH ×3 (08:11→20:46)
[2021-03-07] MEDS: PANTOPRAZOLE 40 MG/10 ML VIAL IV SCH ×2 (08:11→20:46)
[2021-03-07] MEDS: ASCORBIC ACID 500 MG TAB PO SCH (08:11)
[2021-03-07] MEDS: amLODIPine 5 MG TAB PO SCH (08:14)
[2021-03-07] MEDS: FUROSEMIDE 40 MG TAB PO SCH (08:14)
[2021-03-07] MEDS: LOSARTAN-HCTZ 50-12.5 MG 1 EACH TAB PO SCH (08:14)
[2021-03-07] MEDS: FLUTICASONE 50MCG/SPRAY NASAL 16GM EA NOSTRIL SCH ×2 (08:14→20:45)
[2021-03-07] MEDS: OPTIVE EYE BOTH EYES SCH ×2 (08:15→20:46)
[2021-03-07] MEDS: ONDANSETRON 4 MG/2 ML VIAL IVP PRN ×2 (08:23→16:50)
[2021-03-07] MEDS: ALPRAZolam 0.25 MG TAB PO PRN ×2 (08:23→16:50)
[2021-03-07] MEDS: SYMBICORT 80-4.5 MCG INHALER INHALATION SCH ×2 (08:28→19:39)
[2021-03-07 10:19] LABS: Basophils # (A) 0.04 X 10*3/uL (0.00-0.10); Basophils % (A) 0.5 %; Eosinophils # (A) 0.11 X 10*3/uL (0.04-0.35); Eosinophils % (A) 1.3 %; HCT 38.4 % (39.6-50.0); HGB 12.9 g/dL (13.0-17.0); Immature Grans, Automated 0.6 %; Lymphocytes # (A) 1.17 X 10*3/uL (0.90-5.00); Lymphocytes % (A) 14.1 %; MCH 29.7 pg (27.0-32.0); MCHC 33.6 g/dL (32.0-37.0); MCV 88.5 fL (80.0-97.0); Mean Platelet Volume 9.7 fL (9.5-12.2); Monocytes # (A) 0.76 X 10*3/uL (0.20-1.00); Monocytes % (A) 9.2 %; NRBC Per 100 WBC 0.4 /100 WBCS (0.0-0.0); Neutrophils # (A) 6.15 X 10*3/uL (1.80-7.70); Neutrophils % (A) 74.3 %; Platelet Count 268 X 10*3/uL (140-440); RBC 4.34 X 10*6/uL (4.40-5.60); RDW 15.6 % (11.5-14.5); WBC 8.28 X 10*3/uL (4.50-10.00)
[2021-03-07 10:28] LABS: African American GFR (CKD) 85.5 (60.0-200.0); Albumin 3.3 g/dL (3.8-4.9); Albumin/Globulin Ratio 1.65 (1.60-3.17); Anion Gap 14.2 mmol/L (10.00-18.00); BUN/Creat Ratio 11.46 Ratio (12.00-20.00); Blood Urea Nitrogen 11.8 mg/dL (9.0-27.0); Calcium 8.3 mg/dL (8.7-10.3); Carbon Dioxide 26.2 mmol/L (20.0-27.5); Non-African American GFR(CKD) 73.8 (60.0-200.0); Potassium 3.6 mmol/L (3.5-5.5); Total Protein 5.2 g/dL (6.2-8.2)
[2021-03-07] MEDS: diphenhydrAMINE 25 MG CAP PO PRN ×2 (10:39→20:46)
--- NOTE | 2021-03-07 12:30 | P.PN ---
Subjective Progress Note Date: 03/07/21 Principal diagnosis: Esophageal Cancer Patients ability to swallow food has improved however secretion production is his biggest complaint. He states this has always been an issue he takes daily anti-histamine. Objective - Vital Signs Vital signs: Vital Signs Temp 98.6 F 03/07/21 04:03 Pulse 97 03/07/21 08:00 Resp 16 03/07/21 04:03 BP 122/77 03/07/21 08:00 Pulse Ox 93 L 03/07/21 04:03 Intake & Output 03/06/21 03/07/21 03/07/21 18:59 06:59 18:59 Intake Total 400 500 Balance 400 500 Intake: Intake, IV Titration 400 Amount Potassium Chloride 10 meq 400 In Water For Injection 1 100ml.bag @ 100 mls/hr IVPB Q1HR [facility] Rx#: [id number] Oral 500 Other: Voiding Method Toilet # Voids 2 - Exam Obese - Constitutional General appearance: cooperative, no acute distress - EENT Eyes: EOMI Erythema rash on bilateral arms - Respiratory Respiratory: bilateral: diminished - Cardiovascular Rhythm: regularly irregular - Gastrointestinal General gastrointestinal: soft - Integumentary Integumentary: pale - Musculoskeletal Musculoskeletal: generalized weakness - Psychiatric Psychiatric: A&O x's 3, appropriate affect, intact judgment & insight - Labs CBC & Chem 7: 03/07/21 06:36 03/07/21 06:36 Labs: Abnormal Lab Results - Last 24 Hours (Table) 03/06/21 03/06/21 03/07/21 Range/Units 17:13 21:41 06:36 RBC 4.34 L (4.40-5.60) X 10*6/uL Hgb 12.9 L (13.0-17.0) g/dL Hct 38.4 L (39.6-50.0) % RDW 15.6 H (11.5-14.5) % Absolute Nucleated RBC 0.03 H (0.00-0.00) X 10*3/uL Immature Gran # 0.05 H (0.00-0.04) X 10*3/uL NRBC/100 WBC Diff 0.4 H (0.0-0.0) /100 WBCS BUN/Creatinine Ratio (12.00-20.00) Ratio Glucose (70-110) mg/dL POC Glucose (mg/dL) 155 H 140 H (75-99) mg/dL Calcium (8.7-10.3) mg/dL Magnesium (1.5-2.4) mg/dL Total Protein (6.2-8.2) g/dL Albumin (3.8-4.9) g/dL 03/07/21 03/07/21 03/07/21 Range/Units 06:36 06:36 07:19 RBC (4.40-5.60) X 10*6/uL Hgb (13.0-17.0) g/dL Hct (39.6-50.0) % RDW (11.5-14.5) % Absolute Nucleated RBC (0.00-0.00) X 10*3/uL Immature Gran # (0.00-0.04) X 10*3/uL NRBC/100 WBC Diff (0.0-0.0) /100 WBCS BUN/Creatinine Ratio 11.46 L (12.00-20.00) Ratio Glucose 180 H (70-110) mg/dL POC Glucose (mg/dL) 163 H (75-99) mg/dL Calcium 8.3 L (8.7-10.3) mg/dL Magnesium 1.4 L (1.5-2.4) mg/dL Total Protein 5.2 L (6.2-8.2) g/dL Albumin 3.3 L (3.8-4.9) g/dL Assessment and Plan (1) Dehydration Current Visit: Yes Status: Acute Code(s): E86.0 - DEHYDRATION SNOMED Code(s): 20109928 (2) Esophageal cancer Current Visit: Yes Status: Acute Code(s): C15.9 - MALIGNANT NEOPLASM OF ESOPHAGUS, UNSPECIFIED SNOMED Code(s): 559146387 Plan: Status post MP and Status post Esophageal stent. PLan to follow up with Dr. Umaña in office within the next week for treatment plan Discussed with GI and Surgery Able to tolerate food, however increasing secretions are continued to be d ifficult will add loratadine, daily bentyl, and senna Physician Attest: I have completed the full history and physical and agree with above dictation, dictated as a scribe.
[2021-03-07 12:48] LABS: Glucose,Whole Blood 192 mg/dL (75-99)
[2021-03-07] MEDS: LORATADINE 10 MG TAB PO SCH (13:06)
[2021-03-07] MEDS: MAGNESIUM SULFATE-D5W PMX 1 GM in DEXTROSE/WATER 1 100ML.BAG IVPB SCH ×2 (13:06→14:29)
--- NOTE | 2021-03-07 15:52 | P.PN ---
Subjective Progress Note Date: 03/07/21 CHIEF COMPLAINT: Esophageal cancer HISTORY OF PRESENT ILLNESS: Patient is status post MediPort placement. Patient complains of nausea. Only able to eat a small amount. He does feel full. Afebrile. WBC is 8.28 hemoglobin 12.9 platelets 268 sodium 143 potassium 3.6 magnesium is 1.4 PHYSICAL EXAM: VITAL SIGNS: Reviewed. GENERAL: Well-developed in no acute distress. HEENT: No sclera icterus. Extraocular movements grossly intact. Moist buccal mucosa. Head is atraumatic, normocephalic. ABDOMEN: Soft. Nondistended. Nontender. NEUROLOGIC: Alert and oriented. Cranial nerves II through XII grossly intact. ASSESSMENT: 1. Esophageal cancer. 2. Morbid obesity due to excess calories, BMI 38.9 3. Hypokalemia 4. Hypomagnesemia PLAN: -Continue supportive care -Replace magnesium -Patient followed by oncology and radiation oncology Physician Audio/Visual Manager note has been reviewed by physician. Signing provider agrees with the documented findings, assessment, and plan of care. Objective - Vital Signs Vital signs: Vital Signs Temp 98.6 F 03/07/21 04:03 Pulse 97 03/07/21 08:00 Resp 16 03/07/21 04:03 BP 122/77 03/07/21 08:00 Pulse Ox 93 L 03/07/21 04:03 Intake & Output 03/06/21 03/07/21 03/07/21 18:59 06:59 18:59 Intake Total 400 500 Balance 400 500 Intake: Intake, IV Titration 400 Amount Potassium Chloride 10 meq 400 In Water For Injection 1 100ml.bag @ 100 mls/hr IVPB Q1HR [facility] [place] Rx#: [id number] Oral 500 Other: Voiding Method Toilet # Voids 2 - Labs CBC & Chem 7: 03/07/21 06:36 03/07/21 06:36 Labs: Abnormal Lab Results - Last 24 Hours (Table) 03/06/21 03/06/21 03/06/21 Range/Units 11:44 17:13 21:41 RBC (4.40-5.60) X 10*6/uL Hgb (13.0-17.0) g/dL Hct (39.6-50.0) % RDW (11.5-14.5) % Absolute Nucleated RBC (0.00-0.00) X 10*3/uL Immature Gran # (0.00-0.04) X 10*3/uL NRBC/100 WBC Diff (0.0-0.0) /100 WBCS BUN/Creatinine Ratio (12.00-20.00) Ratio Glucose (70-110) mg/dL POC Glucose (mg/dL) 141 H 155 H 140 H (75-99) mg/dL Calcium (8.7-10.3) mg/dL Magnesium (1.5-2.4) mg/dL Total Protein (6.2-8.2) g/dL Albumin (3.8-4.9) g/dL 03/07/21 03/07/21 03/07/21 Range/Units 06:36 06:36 06:36 RBC 4.34 L (4.40-5.60) X 10*6/uL Hgb 12.9 L (13.0-17.0) g/dL Hct 38.4 L (39.6-50.0) % RDW 15.6 H (11.5-14.5) % Absolute Nucleated RBC 0.03 H (0.00-0.00) X 10*3/uL Immature Gran # 0.05 H (0.00-0.04) X 10*3/uL NRBC/100 WBC Diff 0.4 H (0.0-0.0) /100 WBCS BUN/Creatinine Ratio 11.46 L (12.00-20.00) Ratio Glucose 180 H (70-110) mg/dL POC Glucose (mg/dL) (75-99) mg/dL Calcium 8.3 L (8.7-10.3) mg/dL Magnesium 1.4 L (1.5-2.4) mg/dL Total Protein 5.2 L (6.2-8.2) g/dL Albumin 3.3 L (3.8-4.9) g/dL 03/07/21 Range/Units 07:19 RBC (4.40-5.60) X 10*6/uL Hgb (13.0-17.0) g/dL Hct (39.6-50.0) % RDW (11.5-14.5) % Absolute Nucleated RBC (0.00-0.00) X 10*3/uL Immature Gran # (0.00-0.04) X 10*3/uL NRBC/100 WBC Diff (0.0-0.0) /100 WBCS BUN/Creatinine Ratio (12.00-20.00) Ratio Glucose (70-110) mg/dL POC Glucose (mg/dL) 163 H (75-99) mg/dL Calcium (8.7-10.3) mg/dL Magnesium (1.5-2.4) mg/dL Total Protein (6.2-8.2) g/dL Albumin (3.8-4.9) g/dL
--- NOTE | 2021-03-07 16:04 | P.PN ---
Subjective Progress Note Date: 03/07/21 Principal diagnosis: Esophageal cancer This is 70-year-old male recently diagnosed with esophageal cancer who was having difficulty with swallowing. Sunday he underwent a EGD with a expanding metal stent placement. He states he has been able to tolerate clear liquids and some full liquids. He states he does not have much of an appetite and yesterday was very nauseated. Objective - Vital Signs Vital signs: Vital Signs Temp 98.6 F 03/07/21 04:03 Pulse 97 03/07/21 08:00 Resp 16 03/07/21 04:03 BP 122/77 03/07/21 08:00 Pulse Ox 93 L 03/07/21 04:03 Intake & Output 03/06/21 03/07/21 03/07/21 18:59 06:59 18:59 Intake Total 400 500 Balance 400 500 Intake: Intake, IV Titration 400 Amount Potassium Chloride 10 meq 400 In Water For Injection 1 100ml.bag @ 100 mls/hr IVPB Q1HR [facility] Rx#: [id number] Oral 500 Other: Voiding Method Toilet # Voids 2 - Exam General appearance: The patient is alert, oriented, appears in no acute distress. HET: Head is normocephalic and atraumatic. Conjunctiva pink. Sclera anicteric. Neck: Supple without lymphadenopathy. Abdomen: Soft, obese, nontender, nondistended with bowel sounds. No guarding or rigidity. Extremities: Normal skin color and turgor. No pedal edema Skin: No rashes, no jaundice Neurological: No focal deficits. Alert and oriented -3. - Labs CBC & Chem 7: 03/07/21 06:36 03/07/21 06:36 Labs: Abnormal Lab Results - Last 24 Hours (Table) 03/06/21 03/06/21 03/06/21 Range/Units 06:52 06:52 11:44 RBC 4.27 L (4.40-5.60) X 10*6/uL Hgb 12.6 L (13.0-17.0) g/dL Hct 37.1 L (39.6-50.0) % RDW 15.6 H (11.5-14.5) % Absolute Nucleated RBC 0.02 H (0.00-0.00) X 10*3/uL Lymphocytes # 0.72 L (0.90-5.00) X 10*3/uL Eosinophils # 0 L (0.04-0.35) X 10*3/uL NRBC/100 WBC Diff 0.2 H (0.0-0.0) /100 WBCS Potassium 3.4 L (3.5-5.5) mmol/L BUN/Creatinine Ratio 11.68 L (12.00-20.00) Ratio Glucose 196 H (70-110) mg/dL POC Glucose (mg/dL) 141 H (75-99) mg/dL Calcium 8.3 L (8.7-10.3) mg/dL Total Protein 5.3 L (6.2-8.2) g/dL Albumin 3.4 L (3.8-4.9) g/dL 03/06/21 03/06/21 03/07/21 Range/Units 17:13 21:41 07:19 RBC (4.40-5.60) X 10*6/uL Hgb (13.0-17.0) g/dL Hct (39.6-50.0) % RDW (11.5-14.5) % Absolute Nucleated RBC (0.00-0.00) X 10*3/uL Lymphocytes # (0.90-5.00) X 10*3/uL Eosinophils # (0.04-0.35) X 10*3/uL NRBC/100 WBC Diff (0.0-0.0) /100 WBCS Potassium (3.5-5.5) mmol/L BUN/Creatinine Ratio (12.00-20.00) Ratio Glucose (70-110) mg/dL POC Glucose (mg/dL) 155 H 140 H 163 H (75-99) mg/dL Calcium (8.7-10.3) mg/dL Total Protein (6.2-8.2) g/dL Albumin (3.8-4.9) g/dL Assessment and Plan (1) Dysphagia Narrative/Plan: 70-year-old male recently diagnosed with esophageal cancer presented to the emergency department directed by his oncologist Dr. Umaña for dehydration. P atient has been having difficulty with swallowing solids and even liquids. Gastroenterology was asked to see patient regarding dysphagia, requesting EGD with stenting. Patient states he continues to have difficulty with swallowing even liquids with regurgitation at times. This morning a port was placed. It was discussed with both the patient and his that there is a possibility of stent may not be able to be placed, if this is the case, recommend patient would be for PEG tube placement with general surgery. Patient is status post EGD with expanding metal stent placed. Dysphagia is i mproved. Patient is tolerating clear and full liquids and would like to advance diet. Current Visit: Yes Status: Acute Code(s): R13.10 - DYSPHAGIA, UNSPECIFIED SNOMED Code(s): 69254928 (2) Esophageal cancer Current Visit: Yes Status: Acute Code(s): C15.9 - MALIGNANT NEOPLASM OF ESOPHAGUS, UNSPECIFIED SNOMED Code(s): 826243766 (3) Dehydration Current Visit: Yes Status: Acute Code(s): E86.0 - DEHYDRATION SNOMED Code(s): 99164472 (4) Failure to thrive in adult Current Visit: Yes Status: Acute Code(s): R62.7 - ADULT FAILURE TO THRIVE SNOMED Code(s): 017797871 Plan: 1. Advanced to a soft consistent carbohydrate diet 2. Glucerna ordered 3. Patient is status post EGD with expanding metal stent placement 4. Continue with medical management Thank you for this consultation. The patient is cleared from gastroenterology for discharge. Dr. Alysha Sheehan I agree with the dictator's note, documented as a scribe by Cynthia Loomis.
[2021-03-07 17:33] LABS: Glucose,Whole Blood 197 mg/dL (75-99)
--- NOTE | 2021-03-07 18:41 | P.PN ---
Subjective Progress Note Date: 03/07/21 This is a 70-year-old male patient of Dr. Fagan who presented to ER with concerns of poor oral intake and recent diagnosis of esophageal cancer. Patient reports that he had prolonged difficulty with swallowing and a 60 pound weight loss in December and underwent EGD in January with pathology consistent with invasive poorly differentiated adenocarcinoma esophagus. Patient underwent a PET scan is completed on 02/28/2021 which confirmed distal esophageal neoplasm with abnormal thoracic and bilateral separate clavicle 18 of the and abnormal left adrenal suspected metastatic lesion. Patient reports that he has been unable to keep down any fluids or food at home which prompted his oncologist to go to ER for further evaluation. Additional medical history includes asthma, COPD, diabetes mellitus, hyperlipidemia, hypertension, osteoarthritis and sleep apnea. Patient was found to have a creatinine at 1.82 and bun 40. Magnesium also low at 1.5. Patient has been started on IV fluids. At this time oncology services and cardiothoracic surgery has been consulted. Repeat labs have been ordered On 03/03/2021 patient was seen and examined on the medical floor he is alert and oriented 3 in no apparent distress there is no fever or chills no headache or dizziness no chest pain no shortness of breath no cough no nausea or vomiting no abdominal pain no diarrhea and no urinary symptoms On 03/04/2021 patient was seen and examined on the medical floor he is alert and oriented 3 in no apparent distress there is no fever or chills no headache or dizziness no chest pain no shortness of breath no cough no nausea or vomiting no abdominal pain no diarrhea and no urinary symptoms, patient is scheduled today for esophageal stent placement. On 03/05/2021 patient was seen and examined on the medical floor he is alert and oriented 3 in no distress there is no fever or chills no headache or dizziness no chest pain no shortness of breath no cough no nausea or vomiting no abdominal pain no diarrhea and no urinary symptoms he is still having some pain at the esophageal stent placement site he is tolerating full liquid diet well at this time On 03/06/2021 to patient's alert and oriented 3. Patient reports he's had increased so that nausea and vomiting. Patient reports minimal oral intake. Awaiting oncology for further recommendations. Surgical, GI, oncology and interventional radiology services are following. Patient denies chest pain or shortness breath. Patient denies nausea vomiting or diarrhea. Patient denies any urinary burning or frequency On 03/07/2021 patient was seen and examined on the medical floor he is alert and oriented 3. Patient reports he's had increased nausea but no vomiting diet has been increased to gradually, there is no fever or chills no headache or dizziness no chest pain no shortness of breath no cough no abdominal pain no diarrhea and no urinary symptoms. We will continue to monitor possible discharge to home tomorrow if tolerating diet well Objective - Vital Signs Vital signs: Vital Signs Temp 97.9 F 03/07/21 13:00 Pulse 110 H 03/07/21 13:00 Resp 20 03/07/21 13:00 BP 138/79 03/07/21 13:00 Pulse Ox 97 03/07/21 13:00 Intake & Output 03/06/21 03/07/21 03/07/21 18:59 06:59 18:59 Intake Total 400 500 Balance 400 500 Intake: Intake, IV Titration 400 Amount Potassium Chloride 10 meq 400 In Water For Injection 1 100ml.bag @ 100 mls/hr IVPB Q1HR [facility] Rx#: [id number] Oral 500 Other: Voiding Method Toilet # Voids 2 - Exam Head normocephalic Neck supple Lungs clear to auscultation bilaterally no wheezing or crackles Heart regular rate and rhythm S1-S2, no rub or gallop Abdomen is soft nontender nondistended positive bowel sounds no hepatosplenomegaly Extremities no edema Neuro alert and orientated to 3 - Labs CBC & Chem 7: 03/07/21 06:36 03/07/21 06:36 Labs: Abnormal Lab Results - Last 24 Hours (Table) 03/06/21 03/07/21 03/07/21 Range/Units 21:41 06:36 06:36 RBC 4.34 L (4.40-5.60) X 10*6/uL Hgb 12.9 L (13.0-17.0) g/dL Hct 38.4 L (39.6-50.0) % RDW 15.6 H (11.5-14.5) % Absolute Nucleated RBC 0.03 H (0.00-0.00) X 10*3/uL Immature Gran # 0.05 H (0.00-0.04) X 10*3/uL NRBC/100 WBC Diff 0.4 H (0.0-0.0) /100 WBCS BUN/Creatinine Ratio 11.46 L (12.00-20.00) Ratio Glucose 180 H (70-110) mg/dL POC Glucose (mg/dL) 140 H (75-99) mg/dL Calcium 8.3 L (8.7-10.3) mg/dL Magnesium (1.5-2.4) mg/dL Total Protein 5.2 L (6.2-8.2) g/dL Albumin 3.3 L (3.8-4.9) g/dL 03/07/21 03/07/21 03/07/21 Range/Units 06:36 07:19 12:44 RBC (4.40-5.60) X 10*6/uL Hgb (13.0-17.0) g/dL Hct (39.6-50.0) % RDW (11.5-14.5) % Absolute Nucleated RBC (0.00-0.00) X 10*3/uL Immature Gran # (0.00-0.04) X 10*3/uL NRBC/100 WBC Diff (0.0-0.0) /100 WBCS BUN/Creatinine Ratio (12.00-20.00) Ratio Glucose (70-110) mg/dL POC Glucose (mg/dL) 163 H 192 H (75-99) mg/dL Calcium (8.7-10.3) mg/dL Magnesium 1.4 L (1.5-2.4) mg/dL Total Protein (6.2-8.2) g/dL Albumin (3.8-4.9) g/dL 03/07/21 Range/Units 17:17 RBC (4.40-5.60) X 10*6/uL Hgb (13.0-17.0) g/dL Hct (39.6-50.0) % RDW (11.5-14.5) % Absolute Nucleated RBC (0.00-0.00) X 10*3/uL Immature Gran # (0.00-0.04) X 10*3/uL NRBC/100 WBC Diff (0.0-0.0) /100 WBCS BUN/Creatinine Ratio (12.00-20.00) Ratio Glucose (70-110) mg/dL POC Glucose (mg/dL) 197 H (75-99) mg/dL Calcium (8.7-10.3) mg/dL Magnesium (1.5-2.4) mg/dL Total Protein (6.2-8.2) g/dL Albumin (3.8-4.9) g/dL Assessment and Plan Assessment: Progressive nausea and vomiting secondary to esophageal cancer Dehydration with acute kidney injury Recent diagnosis of adenocarcinoma of the esophagus per EGD on 02/03/2021 Suspected metastatic lesion on left adrenal and abnormal thoracic bilateral sub- clavicle adenopathy seen on PET scan on 02/28/2021 History of 60 pound weight loss since early January 2021 History of essential hypertension History of GERD Sleep apnea DVT prophylaxis SCDs due to possible surgical intervention. GI prophylaxis Protonix Continue IV hydration Oncology and cardiothoracic surgery consulted Status post esophageal stent placement on 03/04/2021 Repeat labs ordered
[2021-03-07 20:27] LABS: Glucose,Whole Blood 175 mg/dL (75-99)
[2021-03-07] MEDS: ATORVASTATIN 10 MG TAB PO SCH (20:45)
[2021-03-07] MEDS: SENNOSIDES-DOCUSATE SODIUM 1 EACH TAB PO SCH (20:46)
[2021-03-08] MEDS: ALPRAZolam 0.25 MG TAB PO PRN ×2 (01:34→13:51)
[2021-03-08] MEDS: diphenhydrAMINE 25 MG CAP PO PRN (01:34)
[2021-03-08 07:23] LABS: Glucose,Whole Blood 177 mg/dL (75-99)
[2021-03-08] MEDS: SYMBICORT 80-4.5 MCG INHALER INHALATION SCH ×2 (07:50→20:20)
[2021-03-08] MEDS ORDERED: ONDANSETRON 4 MG TAB PO PRN (08:10)
[2021-03-08] MEDS: INSULIN ASPART (NovoLOG) 100 UNIT/ML VIAL SQ SCH ×3 (08:37→17:56)
[2021-03-08] MEDS ORDERED: DICYCLOMINE 10 MG CAP PO SCH (09:00)
[2021-03-08] MEDS: ASCORBIC ACID 500 MG TAB PO SCH (11:48)
[2021-03-08] MEDS: EZETIMIBE 10 MG TAB PO SCH (11:49)
[2021-03-08] MEDS: LORATADINE 10 MG TAB PO SCH (11:50)
[2021-03-08] MEDS: FLUTICASONE 50MCG/SPRAY NASAL 16GM EA NOSTRIL SCH (11:50)
[2021-03-08] MEDS: LOSARTAN-HCTZ 50-12.5 MG 1 EACH TAB PO SCH (11:50)
[2021-03-08] MEDS: FUROSEMIDE 40 MG TAB PO SCH (11:50)
[2021-03-08] MEDS: amLODIPine 5 MG TAB PO SCH (11:52)
[2021-03-08] MEDS: PANTOPRAZOLE 40 MG TABLET PO SCH ×2 (11:52→17:56)
[2021-03-08] MEDS: PANTOPRAZOLE 40 MG/10 ML VIAL IV SCH (11:57)
[2021-03-08] MEDS: SENNOSIDES-DOCUSATE SODIUM 1 EACH TAB PO SCH (11:58)
[2021-03-08] MEDS: OPTIVE EYE BOTH EYES SCH (12:00)
[2021-03-08 12:04] VITALS: RESP 16
[2021-03-08 12:14] LABS: Glucose,Whole Blood 156 mg/dL (75-99)
[2021-03-08] MEDS: POTASSIUM CHLORIDE ER 10 MEQ TAB.ER.PRT PO SCH ×2 (12:19→16:01)
[2021-03-08 12:48] VITALS: BP 151/81
[2021-03-08] MEDS: SODIUM CHLORIDE 0.9% 1,000 ML IV SCH ×2 (12:53→17:28)
[2021-03-08 13:01] VITALS: PULSE 114; TEMP 97.5
--- NOTE | 2021-03-08 14:44 | P.PN ---
Subjective Progress Note Date: 03/08/21 CHIEF COMPLAINT: Esophageal cancer HISTORY OF PRESENT ILLNESS: Patient is status post MediPort placement. Patient reports that he is tolerating diet. His nausea is better. Afebrile PHYSICAL EXAM: VITAL SIGNS: Reviewed. GENERAL: Well-developed in no acute distress. HEENT: No sclera icterus. Extraocular movements grossly intact. Moist buccal mucosa. Head is atraumatic, normocephalic. ABDOMEN: Soft. Nondistended. Nontender. NEUROLOGIC: Alert and oriented. Cranial nerves II through XII grossly intact. Chest: MediPort site clean dry and intact ASSESSMENT: 1. Esophageal cancer 2. Morbid obesity due to excess calories, BMI 38.9 3. Hypokalemia 4. Hypomagnesemia PLAN: -Patient can be discharged from surgical standpoint when medically cleared -Continue supportive care -Patient followed by oncology and radiation oncology Physician Jewelry Repairer note has been reviewed by physician. Signing provider agrees with the documented findings, assessment, and plan of care. Objective - Vital Signs Vital signs: Vital Signs Temp 97.5 F L 03/08/21 12:40 Pulse 114 H 03/08/21 11:30 Resp 16 03/08/21 11:30 BP 113/76 03/08/21 11:30 Pulse Ox 96 03/08/21 08:00 Intake & Output 03/07/21 03/08/21 03/08/21 18:59 06:59 18:59 Intake Total 260 50 Balance 260 50 Intake: IV 50 Sodium Chloride 0.9% 1, 50 000 ml @ 130 mls/hr IV . Q7H42M [facility] Rx#:[id number] Intake, IV Titration 260 Amount Magnesium Sulfate-D5w Pmx 200 1 gm In Dextrose/Water 1 100ml.bag @ 100 mls/hr IVPB Q1H [facility] Rx#: [id number] Sodium Chloride 0.9% 1, 60 000 ml @ 130 mls/hr IV . Q7H42M [facility] Rx#:[id number] Other: Voiding Method Toilet Toilet # Voids 3 - Labs CBC & Chem 7: 03/07/21 06:36 03/07/21 06:36 Labs: Abnormal Lab Results - Last 24 Hours (Table) 03/07/21 03/07/21 03/08/21 Range/Units 17:17 20:24 07:22 POC Glucose (mg/dL) 197 H 175 H 177 H (75-99) mg/dL 03/08/21 Range/Units 12:12 POC Glucose (mg/dL) 156 H (75-99) mg/dL
--- NOTE | 2021-03-08 15:38 | P.PN ---
Subjective Progress Note Date: 03/08/21 Principal diagnosis: Esophageal cancer This is 70-year-old male recently diagnosed with esophageal cancer who was having difficulty with swallowing. Sunday he underwent a EGD with a expanding metal stent placement. He was transitioned to soft diet yesterday evening. He states he was able to be about one third of his chicken potpie and his throat. He states this morning he can swallow however breakfast did not look appetizing therefore he did not eat it. He denies any nausea or vomiting. Objective - Vital Signs Vital signs: Vital Signs Temp 97.5 F L 03/08/21 12:40 Pulse 114 H 03/08/21 11:30 Resp 16 03/08/21 11:30 BP 113/76 03/08/21 11:30 Pulse Ox 96 03/08/21 08:00 Intake & Output 03/07/21 03/08/21 03/08/21 18:59 06:59 18:59 Intake Total 260 50 Balance 260 50 Intake: IV 50 Sodium Chloride 0.9% 1, 50 000 ml @ 130 mls/hr IV . Q7H42M [facility] Rx#:[id number] Intake, IV Titration 260 Amount Magnesium Sulfate-D5w Pmx 200 1 gm In Dextrose/Water 1 100ml.bag @ 100 mls/hr IVPB Q1H [facility] Rx#: [id number] Sodium Chloride 0.9% 1, 60 000 ml @ 130 mls/hr IV . Q7H42M [facility] Rx#:[id number] Other: Voiding Method Toilet Toilet # Voids 3 - Exam General appearance: The patient is alert, oriented, appears in no acute distress. HET: Head is normocephalic and atraumatic. Conjunctiva pink. Sclera anicteric. Neck: Supple without lymphadenopathy. Abdomen: Soft, obese, nontender, nondistended with bowel sounds. No guarding o r rigidity. Extremities: Normal skin color and turgor. No pedal edema Skin: No rashes, no jaundice Neurological: No focal deficits. Alert and oriented -3. - Labs CBC & Chem 7: 03/07/21 06:36 03/07/21 06:36 Labs: Abnormal Lab Results - Last 24 Hours (Table) 03/07/21 03/07/21 03/08/21 Range/Units 17:17 20:24 07:22 POC Glucose (mg/dL) 197 H 175 H 177 H (75-99) mg/dL 03/08/21 Range/Units 12:12 POC Glucose (mg/dL) 156 H (75-99) mg/dL Assessment and Plan (1) Dysphagia Narrative/Plan: 70-year-old male recently diagnosed with esophageal cancer presented to the emergency department directed by his oncologist Dr. Umaña for dehydration. Patien t has been having difficulty with swallowing solids and even liquids. Gastroenterology was asked to see patient regarding dysphagia, requesting EGD with stenting. Patient states he continues to have difficulty with swallowing even liquids with regurgitation at times. This morning a port was placed. It was discussed with both the patient and his that there is a possibility of stent may not be able to be placed, if this is the case, recommend patient would be for PEG tube placement with general surgery. Patient is status post EGD with expanding metal stent placed. Dysphagia is improved. Patient is tolerating clear and full liquids and would like to advance diet. Current Visit: Yes Status: Acute Code(s): R13.10 - DYSPHAGIA, UNSPECIFIED SNOMED Code(s): 84224512 (2) Esophageal cancer Current Visit: Yes Status: Acute Code(s): C15.9 - MALIGNANT NEOPLASM OF ESOPHAGUS, UNSPECIFIED SNOMED Code(s): 714978254 (3) Dehydration Current Visit: Yes Status: Acute Code(s): E86.0 - DEHYDRATION SNOMED Code(s): 36618088 (4) Failure to thrive in adult Current Visit: Yes Status: Acute Code(s): R62.7 - ADULT FAILURE TO THRIVE SNOMED Code(s): 199641181 Plan: 1. Advanced to a soft consistent carbohydrate diet 2. Glucerna ordered 3. Patient is status post EGD with expanding metal stent placement 4. Continue with medical management Thank you for this consultation. The patient is cleared from gastroenterology for discharge. We will sign off at this time. Dr. Alysha Sheehan I agree with the dictator's note, documented as a scribe by Cynthia Loomis.
--- NOTE | 2021-03-08 15:49 | P.PN ---
Subjective Progress Note Date: 03/08/21 Principal diagnosis: esophageal adencarcinoma Pt is doing very well today post stent placement. He is able to swallow, his secretions are less intense on the Claritin. Objective - Vital Signs Vital signs: Vital Signs Temp 97.5 F L 03/08/21 12:40 Pulse 114 H 03/08/21 11:30 Resp 16 03/08/21 11:30 BP 113/76 03/08/21 11:30 Pulse Ox 96 03/08/21 08:00 Intake & Output 03/07/21 03/08/21 03/08/21 18:59 06:59 18:59 Intake Total 260 50 Balance 260 50 Intake: IV 50 Sodium Chloride 0.9% 1, 50 000 ml @ 130 mls/hr IV . Q7H42M [facility] Rx#:[id number] Intake, IV Titration 260 Amount Magnesium Sulfate-D5w Pmx 200 1 gm In Dextrose/Water 1 100ml.bag @ 100 mls/hr IVPB Q1H [facility] Rx#: [id number] Sodium Chloride 0.9% 1, 60 000 ml @ 130 mls/hr IV . Q7H42M [facility] Rx#:[id number] Other: Voiding Method Toilet Toilet # Voids 3 - Constitutional General appearance: Present: cooperative, no acute distress, obese - EENT Eyes: Present: anicteric sclerae, EOMI ENT: Present: hearing grossly normal, normal oropharynx - Respiratory Respiratory: bilateral: CTA - Cardiovascular Rhythm: regular Heart sounds: normal: S1, S2 Abnormal Heart Sounds: Absent: systolic murmur, diastolic murmur, rub, S3 Gallop, S4 Gallop, click, other - Gastrointestinal General gastrointestinal: Present: normal bowel sounds, soft - Integumentary Integumentary: Present: normal - Neurologic Neurologic: Present: CNII-XII intact - Musculoskeletal Musculoskeletal: Present: strength equal bilaterally - Psychiatric Psychiatric: Present: A&O x's 3, appropriate affect, intact judgment & insight - Labs CBC & Chem 7: 03/07/21 06:36 03/07/21 06:36 Labs: Abnormal Lab Results - Last 24 Hours (Table) 03/07/21 03/07/21 03/08/21 Range/Units 17:17 20:24 07:22 POC Glucose (mg/dL) 197 H 175 H 177 H (75-99) mg/dL 03/08/21 Range/Units 12:12 POC Glucose (mg/dL) 156 H (75-99) mg/dL Assessment and Plan (1) Dysphagia Narrative/Plan: Status post stent placement. The patient is doing very well and able to tolerate oral intake. Patient is also been started on Claritin for excessive mucus/secretions, he reports this is much improved today to. Current Visit: Yes Status: Acute Priority: High Code(s): R13.10 - DYSPHAGIA, UNSPECIFIED SNOMED Code(s): 58350389 (2) Esophageal cancer Narrative/Plan: Case was discussed with Dr. Murphy. Plan is to get patient started on radiation to decrease the size of tumor and improve patient's symptoms. Patient will start chemotherapy post radiation. This was discussed with the patient. He verbalizes understanding. Follow-up appointment with Dr. Murphy is in the chart. Pending appointment date and time with Dr. Umaña. Current Visit: Yes Status: Acute Priority: High Code(s): C15.9 - MALIGNANT NEOPLASM OF ESOPHAGUS, UNSPECIFIED SNOMED Code(s): 813830166 Plan: Doctor attests: I performed a history and physical examination of this patient, developed impression and plan of care, discussed with dictator. I agree with dictators n ote, documented as a scribe.
[2021-03-08 17:21] LABS: Glucose,Whole Blood 185 mg/dL (75-99)
--- NOTE | 2021-03-08 19:18 | P.DS ---
Providers Date of admission: 03/01/21 21:58 Expected date of discharge: 03/08/21 Attending physician: Michell Soriano Consults: 03/01/21 21:59 Consult Physician Routine Consulting Provider: Rakesh Phelps Consult Reason/Comments: Esophageal cancer Do you want consulting provider notified?: Yes, Notify in am Consult Physician Routine Consulting Provider: Maximo Umaña Consult Reason/Comments: Esophageal cancer Do you want consulting provider notified?: Yes, Notify in am 03/04/21 15:17 Consult Physician Routine Consulting Provider: Keke Sheehan Consult Reason/Comments: esoph ca, stent placement Do you want consulting provider notified?: Already Contacted 03/04/21 15:18 Consult Physician Routine Consulting Provider: Rei Murphy Consult Reason/Comments: esoph ca, dysphagia Do you want consulting provider notified?: Yes Primary care physician: Vincent Fagan [place] [facility] Course: Diagnosis on discharge: Progressive nausea and vomiting secondary to esophageal cancer Dehydration with acute kidney injury Recent diagnosis of adenocarcinoma of the esophagus per EGD on 02/03/2021 Suspected metastatic lesion on left adrenal and abnormal thoracic bilateral sub- clavicle adenopathy seen on PET scan on 02/28/2021 History of 60 pound weight loss since early January 2021 History of essential hypertension History of GERD Sleep apnea Hospital course: This is a 70-year-old male patient of Dr. Fagan who presented to ER with concerns of poor oral intake and recent diagnosis of esophageal cancer. Patient reports that he had prolonged difficulty with swallowing and a 60 pound weight loss in December and underwent EGD in January with pathology consistent with invasive poorly differentiated adenocarcinoma esophagus. Patient underwent a PET scan is completed on 02/28/2021 which confirmed distal esophageal neoplasm with abnormal thoracic and bilateral separate clavicle 18 of the and abnormal le ft adrenal suspected metastatic lesion. Patient reports that he has been unable to keep down any fluids or food at home which prompted his oncologist to go to ER for further evaluation. Additional medical history includes asthma, COPD, diabetes mellitus, hyperlipidemia, hypertension, osteoarthritis and sleep apnea. Patient was found to have a creatinine at 1.82 and bun 40. Magnesium also low at 1.5. Patient has been started on IV fluids. At this time oncology services and cardiothoracic surgery has been consulted. Repeat labs have been ordered On 03/03/2021 patient was seen and examined on the medical floor he is alert and oriented 3 in no apparent distress there is no fever or chills no headache or dizziness no chest pain no shortness of breath no cough no nausea or vomiting no abdominal pain no diarrhea and no urinary symptoms On 03/04/2021 patient was seen and examined on the medical floor he is alert and oriented 3 in no apparent distress there is no fever or chills no headache or dizziness no chest pain no shortness of breath no cough no nausea or vomiting no abdominal pain no diarrhea and no urinary symptoms, patient is scheduled today for esophageal stent placement. On 03/05/2021 patient was seen and examined on the medical floor he is alert and oriented 3 in no distress there is no fever or chills no headache or dizziness no chest pain no shortness of breath no cough no nausea or vomiting no abdominal pain no diarrhea and no urinary symptoms he is still having some pain at the esophageal stent placement site he is tolerating full liquid diet well at this time On 03/06/2021 to patient's alert and oriented 3. Patient reports he's had increased so that nausea and vomiting. Patient reports minimal oral intake. Awaiting oncology for further recommendations. Surgical, GI, oncology and interventional radiology services are following. Patient denies chest pain or shortness breath. Patient denies nausea vomiting or diarrhea. Patient denies any urinary burning or frequency On 03/07/2021 patient was seen and examined on the medical floor he is alert and oriented 3. Patient reports he's had increased nausea but no vomiting diet has been increased to gradually, there is no fever or chills no headache or dizziness no chest pain no shortness of breath no cough no abdominal pain no diarrhea and no urinary symptoms. We will continue to monitor possible discharge to home tomorrow if tolerating diet well On 03/08/2021 patient was seen and examined on the medical floor he is alert and oriented 3 in no apparent distress there is no fever or chills no headache or dizziness no chest pain no shortness of breath no cough no nausea or vomiting no abdominal pain no diarrhea and no urinary symptoms agent is tolerating diet well he was cleared by gastroenterology and oncology to be discharged home he was be discharged home today Patient Condition at Discharge: Fair Plan - Discharge Summary Discharge Rx Participant: No New Discharge Prescriptions: New diphenhydrAMINE [Benadryl] 25 mg PO QID PRN cap PRN Reason: Rash Dicyclomine [Bentyl] 10 mg PO DAILY cap INSULIN ASPART (NovoLOG) [NovoLOG (formulary)] 0 unit SQ ACHS ml Continue amLODIPine [Norvasc] 5 mg PO DAILY@1000 Furosemide [Lasix] 40 mg PO DAILY ALPRAZolam [Xanax] 0.25 mg PO TID PRN PRN Reason: Anxiety Metoprolol Succinate (ER) [Toprol XL] 100 mg PO BID Aspirin 325 mg PO DAILY Vitamin A [Vitamin A (8,000 Units = 2,400 MCG)] 8,000 unit PO DAILY Vit C/E/Zn/Coppr/Lutein/Zeaxan [Preservision Areds 2 Softgel] 1 cap PO BID Potassium Chloride [Klor-Con 10 ER] 10 meq PO TID Optive Eye Drops 1 drop BOTH EYES BID Losartan/Hydrochlorothiazide [Hyzaar 100-25 Tablet] 1 tab PO DAILY Calcium Carbonate [Tums] 1,000 mg PO ACHS PRN PRN Reason: Gi Upset Ascorbic Acid [Vitamin C] 1,000 mg PO DAILY Fexofenadine HCl [Rasheeda Allergy] 180 mg PO DAILY Meloxicam [Mobic] 7.5 mg PO DAILY@1700 glipiZIDE [Glucotrol] 5 mg PO BID@0700,1700 Fluticasone/Salmeterol [Advair 100-50 Diskus] 1 puff INHALATION RT-Q12H Fluticasone Nasal Nebo [Flonase Nasal Nebo] 1 spray EA NOSTRIL BID Ezetimibe [Zetia] 10 mg PO DAILY Cholecalciferol [Vitamin D3 (25 Mcg = 1000 Iu)] 50 mcg PO BID metFORMIN HCL [Glucophage] 1,000 mg PO BID Simvastatin [Zocor] 20 mg PO HS Omeprazole [PriLOSEC] 20 mg PO BID Albuterol Sulfate [Ventolin HFA] 1 - 2 puff INHALATION RT-Q4H PRN PRN Reason: Shortness Of Breath Chlorhexidine Gluconate [Peridex] 5 ml PO DAILY PRN PRN Reason: gum irritation Acetaminophen [Children's Acetaminophen] 960 mg PO Q8H PRN PRN Reason: Pain Or Fever > 100.5 Discontinued Clindamycin HCl 600 mg PO DIRECTED PRN PRN Reason: prior to dental procedures Discharge Medication List ALPRAZolam [Xanax] 0.25 mg PO TID PRN 01/28/16 [History] Aspirin 325 mg PO DAILY 01/28/16 [History] Furosemide [Lasix] 40 mg PO DAILY 01/28/16 [History] Losartan/Hydrochlorothiazide [Hyzaar 100-25 Tablet] 1 tab PO DAILY 01/28/16 [History] Metoprolol Succinate (ER) [Toprol XL] 100 mg PO BID 01/28/16 [History] Optive Eye Drops 1 drop BOTH EYES BID 01/28/16 [History] Potassium Chloride [Klor-Con 10 ER] 10 meq PO TID 01/28/16 [History] Vit C/E/Zn/Coppr/Lutein/Zeaxan [Preservision Areds 2 Softgel] 1 cap PO BID 01/28/16 [History] Vitamin A [Vitamin A (8,000 Units = 2,400 MCG)] 8,000 unit PO DAILY 01/28/16 [History] amLODIPine [Norvasc] 5 mg PO DAILY@1000 01/28/16 [History] Ascorbic Acid [Vitamin C] 1,000 mg PO DAILY 10/01/19 [History] Calcium Carbonate [Tums] 1,000 mg PO ACHS PRN 10/01/19 [History] Fexofenadine HCl [Rasheeda Allergy] 180 mg PO DAILY 10/01/19 [History] Fluticasone/Salmeterol [Advair 100-50 Diskus] 1 puff INHALATION RT-Q12H 10/01/19 [History] Meloxicam [Mobic] 7.5 mg PO DAILY@1700 10/01/19 [History] glipiZIDE [Glucotrol] 5 mg PO BID@0700,1700 10/01/19 [History] Albuterol Sulfate [Ventolin HFA] 1 - 2 puff INHALATION RT-Q4H PRN 02/01/21 [History] Chlorhexidine Gluconate [Peridex] 5 ml PO DAILY PRN 02/01/21 [History] Ezetimibe [Zetia] 10 mg PO DAILY 02/01/21 [History] Fluticasone Nasal Nebo [Flonase Nasal Nebo] 1 spray EA NOSTRIL BID 02/01/21 [History] Omeprazole [PriLOSEC] 20 mg PO BID 02/01/21 [History] Acetaminophen [Children's Acetaminophen] 960 mg PO Q8H PRN 03/01/21 [History] Cholecalciferol [Vitamin D3 (25 Mcg = 1000 Iu)] 50 mcg PO BID 03/01/21 [History] Simvastatin [Zocor] 20 mg PO HS 03/01/21 [History] metFORMIN HCL [Glucophage] 1,000 mg PO BID 03/01/21 [History] Dicyclomine [Bentyl] 10 mg PO DAILY cap 03/08/21 [Rx] INSULIN ASPART (NovoLOG) [NovoLOG (formulary)] 0 unit SQ ACHS ml 03/08/21 [Rx] diphenhydrAMINE [Benadryl] 25 mg PO QID PRN cap 03/08/21 [Rx] Follow up Appointment(s)/Referral(s): Maximo Umaña MD [STAFF PHYSICIAN] - 3 Weeks Rei Murphy MD [STAFF PHYSICIAN] - 03/11/21 11:00 am Vincent Fagan MD [Primary Care Provider] - 1-2 days Patient Instructions/Handouts: Esophageal Cancer (DC) Discharge/Stand Alone Forms: Who Do I Call?, Community Resources
== END 2021-03-08 20:00 | disposition home or self-care (01) | DRG 375 ==
LOC: EC 18:13 → 5NMEDONC 21:58
PROVIDERS: ADMIT Internal Medicine; ATTEND Internal Medicine
PROC: B5181ZA Fluoroscopy of Superior Vena Cava using Low Osmolar Contrast, Guidance (ICD-10-PCS; 2021-03-04)
PROC: 0D738DZ Dilation of Lower Esophagus with Intraluminal Device, Via Natural or Artificial Opening Endoscopic (ICD-10-PCS; 2021-03-04)
PROC: 02HV33Z Insertion of Infusion Device into Superior Vena Cava, Percutaneous Approach (ICD-10-PCS; principal; 2021-03-04 07:40)
DX: C15.5 Malignant neoplasm of lower third of esophagus (principal); N17.9 Acute kidney failure, unspecified; E11.9 Type 2 diabetes mellitus without complications; E66.01 Morbid (severe) obesity due to excess calories; Z20.822 Contact with and (suspected) exposure to COVID-19; E78.5 Hyperlipidemia, unspecified; E83.42 Hypomagnesemia; E86.0 Dehydration; E87.6 Hypokalemia; F41.9 Anxiety disorder, unspecified; G47.33 Obstructive sleep apnea (adult) (pediatric); I10 Essential (primary) hypertension; J44.9 Chronic obstructive pulmonary disease, unspecified; K21.9 Gastro-esophageal reflux disease without esophagitis; K22.2 Esophageal obstruction; R62.7 Adult failure to thrive; Z79.1 Long term (current) use of non-steroidal anti-inflammatories (NSAID); Z79.82 Long term (current) use of aspirin; Z87.19 Personal history of other diseases of the digestive system; Z96.641 Presence of right artificial hip joint; Z80.0 Family history of malignant neoplasm of digestive organs; Z79.84 Long term (current) use of oral hypoglycemic drugs; Z79.899 Other long term (current) drug therapy; M19.90 Unspecified osteoarthritis, unspecified site; R59.0 Localized enlarged lymph nodes; R21 Rash and other nonspecific skin eruption; Z68.38 Body mass index [BMI] 38.0-38.9, adult
CPT/HCPCS: 36415; 43266; 71046; 77001; 80048; 80053; 82550; 83735; 85025; 87635; 93005; 94640; 96361; 96374; 96375; 99285

== ENCOUNTER 2021-04-26 07:29 | Day surgery (SDC) | payer MEDICARE, BC ==
[2021-04-25 14:47] VITALS: BMI 38.2
[2021-04-26 08:14] LABS: Glucose,Whole Blood 163 mg/dL (75-99)
[2021-04-26 08:22] VITALS: RESP 16; TEMP 97.5
[2021-04-26] MEDS ORDERED: ALPRAZolam 0.25 MG TAB ONE (08:27)
--- NOTE | 2021-04-26 09:28 | IR ---
Fluoroscopic portogram(mediport). HISTORY: Device malfunction. The patient presented to the [facility] with a Lieberman needle within the port. Preliminary fluoroscopy demonst rated the catheter to be intact. Catheter appear to be in similar orientation relative to the prio r exam of 03/04/2021. Tip is near the subclavian SVC junction. The port itself appears somewhat latera lly placed overlying the scapula should be correlated clinically. Aspiration was attempted and no blo od return was able to be obtained. Therefore an injection could not be performed. IMPRESSION: 1. See above.
[2021-04-26 09:32] VITALS: BP 141/74; PULSE 93
== END 2021-04-26 09:31 | disposition home or self-care (01) ==
LOC: CATHCVL 07:29
PROVIDERS: ATTEND Radiology Diagnostic Radiology
DX: C15.5 Malignant neoplasm of lower third of esophagus (principal); Z53.8 Procedure and treatment not carried out for other reasons; T85.618A Breakdown (mechanical) of other specified internal prosthetic devices, implants and grafts, initial encounter; Z20.822 Contact with and (suspected) exposure to COVID-19; E11.9 Type 2 diabetes mellitus without complications; C15.4 Malignant neoplasm of middle third of esophagus; J44.9 Chronic obstructive pulmonary disease, unspecified; E78.5 Hyperlipidemia, unspecified; I10 Essential (primary) hypertension; Z79.4 Long term (current) use of insulin; Z88.0 Allergy status to penicillin; Z88.2 Allergy status to sulfonamides
CPT/HCPCS: 36598; 87635

== ENCOUNTER 2021-05-09 07:17 | Inpatient (IN) | payer MEDICARE, BC ==
[2021-05-06 09:40] VITALS: BMI 37.1
[~2021-05-09 07:17] MED LIST changes: +ACETAMINOPHEN TAB 500 MG TAB PO PRN; +CLINDAMYCIN 900 MG in DEXTROSE 5% IN WATER 50 ML IVPB PRN; +HEPARIN SODIUM,PORCINE/PF 5,000 UNIT/0.5 ML SYRINGE SQ PRN; +HYDROmorphone 0.5 MG/0.5 ML SYRINGE IVP PRN; -LACTATED RINGERS 1,000 ML IV SCH; +LIDOCAINE 1% (10MG/ML) FOR IV START INTRADERMA PRN
[2021-05-09 08:14] LABS: Glucose,Whole Blood 151 mg/dL (75-99)
[2021-05-09] MEDS ORDERED: ONDANSETRON 4 MG/2 ML VIAL ONE (08:19)
[2021-05-09] MEDS: LACTATED RINGERS 1,000 ML IV SCH ×2 (08:23→14:22)
[2021-05-09] MEDS: DEXAMETHASONE SOD PHOSPHATE 4 MG/ML 1 ML VIAL IV ONE ×2 (08:23→14:21)
--- NOTE | 2021-05-09 08:43 | P.GSHP ---
History of Present Illness H&P Date: 05/09/21 Chief Complaint: History of esophageal cancer This a 70-year-old male who presents today for Port-A-Cath replacement. Patient has a previous placed right subclavian Port-A-Cath. Apparently the Port-A-Cath occluded. He presents today for removal and replacement Past Medical History Past Medical History: Asthma, Cancer, COPD, Diabetes Mellitus, GERD/Reflux, Hyperlipidemia, Hypertension, Osteoarthritis (OA), Sleep Apnea/CPAP/BIPAP Additional Past Medical History / Comment(s): uses CPAP, occ. 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) History of Any Multi-Drug Resistant Organisms: None Reported Past Surgical History: Hernia Repair, Joint Replacement, Orthopedic Surgery Additional Past Surgical History / Comment(s): cystoscopy, both knees replaced, multiple arthroscopies knees, colonoscopies, dental implant, right hip replaced, stent in esophabus 02/03/21, port rt side inserted 03/2021, esophageal stent placed and port inserted 04/26/21 Past Anesthesia/Blood Transfusion Reactions: Previous Problems w/ Anesthesia, Family History of Problems w/ Anesthesia, Motion Sickness Additional Past Anesthesia/Blood Transfusion Reaction / Comment(s): very combative when waking up from general anesthesia, anxious & agitated w/IV sedation,. mother ponv Smoking Status: Never smoker - Past Family History Father Brother(s) Family Medical History: Cancer, Deep Vein Thrombosis (DVT) Additional Family Medical History / Comment(s): colon cancer Mother Family Medical History: Cancer Additional Family Medical History / Comment(s): . Father Family Medical History: Cancer Brother(s) Family Medical History: Cancer Sister(s) Family Medical History: Cancer Medications and Allergies Home Medications Medication Instructions Recorded Confirmed Type ALPRAZolam [Xanax] 0.25 mg PO TID PRN 01/28/16 05/09/21 History Aspirin 325 mg PO DAILY 01/28/16 05/09/21 History Metoprolol Succinate (ER) [Toprol 50 mg PO BID 01/28/16 05/09/21 History XL] Optive Eye Drops 1 drop BOTH EYES BID 01/28/16 05/09/21 History Potassium Chloride [Klor-Con 10 ER] 10 meq PO TID 01/28/16 05/09/21 History Fluticasone/Salmeterol [Advair 1 puff INHALATION RT-Q12H 10/01/19 05/09/21 History 100-50 Diskus] Meloxicam [Mobic] 7.5 mg PO DAILY@1700 10/01/19 05/09/21 History glipiZIDE [Glucotrol] 5 mg PO BID@0700,1700 10/01/19 05/09/21 History Albuterol Sulfate [Ventolin HFA] 1 - 2 puff INHALATION RT-Q4H PRN 02/01/21 05/09/21 History Chlorhexidine Gluconate [Peridex] 5 ml PO DAILY PRN 02/01/21 05/09/21 History Ezetimibe [Zetia] 10 mg PO HS 02/01/21 05/09/21 History Fluticasone Nasal [place] [Flonase 1 spray EA NOSTRIL BID 02/01/21 05/09/21 History Nasal [place]] Omeprazole [PriLOSEC] 20 mg PO BID 02/01/21 05/09/21 History Simvastatin [Zocor] 20 mg PO HS 03/01/21 05/09/21 History metFORMIN HCL [Glucophage] 1,000 mg PO BID 03/01/21 05/09/21 History INSULIN ASPART (NovoLOG) [NovoLOG 0 unit SQ ACHS ml 03/08/21 05/09/21 Rx (formulary)] Dicyclomine [Bentyl] 10 mg PO DAILY 04/25/21 05/09/21 History Hydrocodone Bitartrate Liquid 15 ml PO Q6HR 04/25/21 05/09/21 History Lidocaine Cream 1 applicate TOPICAL DIRECTED 04/25/21 05/09/21 History Loratadine-Pseudoeph 10-240 mg 1 tab PO DAILY 04/25/21 05/09/21 History [Claritin-D 24 Hour] OLANZapine [ZyPREXA] 2.5 mg PO HS 04/25/21 05/09/21 History Ondansetron [Zofran ODT] 8 mg PO Q12HR PRN 04/25/21 05/09/21 History Sucralfate 1 gm PO Q6HR 04/25/21 05/09/21 History guaiFENesin-Coden 100-10MG/5ML 10 ml PO Q6H 04/25/21 05/09/21 History [Robitussin AC] Compound Solution 1 applicate PO DIRECTED 05/06/21 05/09/21 History Ibuprofen 200 mg PO Q4HR 05/06/21 05/09/21 History diphenhydrAMINE [Benadryl] 25 mg PO Q6HR 05/06/21 05/09/21 History Allergies Allergy/AdvReac Type Severity Reaction Status Date / Time cefazolin [From Kefzol] Allergy Rash/Hives Verified 05/09/21 08:05 enalaprilat [From Vasotec] Allergy Cough,rash Verified 05/09/21 08:05 Penicillins Allergy Rash/Hives Verified 05/09/21 08:05 prochlorperazine Allergy facial Verified 05/09/21 08:05 [From Compazine] twitching, loss of sensation of mouth Sulfa (Sulfonamide Allergy Rash/Hives Verified 05/09/21 08:05 Antibiotics) Surgical - Exam Vital Signs Temp Pulse Resp Pulse Ox 100 F H 108 H 24 88 L 05/09/21 08:00 05/09/21 08:00 05/09/21 08:00 05/09/21 08:00 - General well developed, well nourished, no distress - Eyes PERRL - ENT normal pinna - Neck no masses - Respiratory Right subclavian Port-A-Cath normal expansion - Cardiovascular Rhythm: regular - Abdomen Abdomen: soft, non tender Results - Labs Abnormal Lab Results - Last 24 Hours (Table) 05/09/21 Range/Units 08:04 POC Glucose (mg/dL) 151 H (75-99) mg/dL Assessment and Plan Assessment: History of esophageal cancer Port-A-Cath malfunction We'll perform Port-A-Cath removal and replacement.
[2021-05-09] MEDS ORDERED: PROPOFOL 10 MG/ML 20 ML VIAL IV ONE (08:55)
[2021-05-09] MEDS ORDERED: fentaNYL (PF) 50 MCG/ML 2 ML AMP ONE (08:55)
[2021-05-09] MEDS ORDERED: MIDAZOLAM 2 MG/2 ML VIAL ONE (08:55)
[2021-05-09] MEDS ORDERED: HEPARIN SODIUM,PORCINE 100 UNIT/ML 5 ML VIAL IV ONE ×2 (09:35)
[2021-05-09] MEDS ORDERED: BUPIVACAIN-EPI 0.25%-1:200,000 30 ML VIAL SQ ONE ×2 (09:36)
--- NOTE | 2021-05-09 10:20 | P.OP ---
Date of Procedure: 05/09/21 Preoperative Diagnosis: Esophageal cancer Port-A-Cath malfunction Postoperative Diagnosis: Esophageal cancer Port-A-Cath malfunction Procedure(s) Performed: Removal of right subclavian Port-A-Cath Insertion of new right-sided subclavian Port-A-Cath 6-Honduran Anesthesia: local Surgeon: Jesse Cole Estimated Blood Loss (ml): 10 Pathology: none sent Condition: stable Disposition: PACU Description of Procedure: The patient's placed on the operative table in the supine position. He received IV sedation. The patient's chest wall was prepped and draped usual sterile fashion. 1% local Xylocaine was used to anesthetize the skin and subcutaneous tissues. The skin was incised over the port site. Then using blunt and sharp dissection and electrocautery the port was dissected free. Port-A-Cath and catheter were removed together. Next using Seldinger technique the right subclavian vein was cannulized. The wire was placed into the superior vena cava under fluoroscopy. The introducer sheath was then placed overtop the wire. The wire was withdrawn. The catheter was then placed into the superior vena cava. Introducer sheath was removed. Catheter was then cut and connected to the Port-A-Cath. The Port-A-Cath was then flushed with normal saline. The Port-A-Cath was then hep-locked. The skin was closed interrupted 3-0 Monocryl suture. Dermabond was applied. Patient top she will was sent to recovery room in stable condition.
--- NOTE | 2021-05-09 10:50 | XR ---
EXAMINATION TYPE: XR chest 1V portable DATE OF EXAM: 05/09/2021 Comparison: 03/01/2021 Clinical History: 70-year-old male Removal and replacement of Port-A-Cath Findings: Right subclavian CVC is present. The tip is at the expected brachiocephalic vein confluence. The angie ent is rotated towards the right ultrasound and normal cardiac mediastinal contours. A moderate to la rge right and small left pleural effusions. Right paratracheal soft tissue prominence noted. Impression: 1. Right subclavian CVC tip in the expected region of the brachycephalic vein confluence. 2. Changes have progressed from the patient's prior 03/01/2021 exam. There is cardiomegaly. Right para tracheal soft tissue prominence. 3. Now moderate to large right and small left pleural effusions with adjacent atelectasis and/or cons olidation.
[2021-05-09] MEDS ORDERED: HYDROcodone/APAP 15 ML SOLUTION ONE (11:15)
[2021-05-09] MEDS ORDERED: HYDROcodone/APAP 15 ML SOLUTION PO ONE (11:16)
--- NOTE | 2021-05-09 12:12 | FL ---
Fluoroscopy HISTORY: Port-A-Cath placement 21 seconds fluoroscopy time supplied to the referring clinician. 1 intraoperative C-arm images docum ent the procedure. See dictated report from general surgery.
[2021-05-09 12:14] LABS: Glucose,Whole Blood 204 mg/dL (75-99)
--- NOTE | 2021-05-09 12:25 | P.PN ---
Progress Note - Text Progress Note Date: 05/09/21 Patient has had low O2 sats on room air. His sat and preop was 88%. Patient will will be discharged home on home O2. Patient will also be seen by Dr. Herman silver chaser.
[2021-05-09] MEDS ORDERED: SODIUM CHLORIDE 0.9% 1,000 ML IV ONE (13:44)
[2021-05-09 14:05] LABS: Basophils # (A) 0.1 k/uL (0-0.2); Basophils % (A) 0 %; Eosinophils # (A) 0.1 k/uL (0-0.7); Eosinophils % (A) 1 %; HCT 38.6 % (39.0-53.0); HGB 11.8 gm/dL (13.0-17.5); Hypochromasia Moderate; Lymphocytes # (A) 0.5 k/uL (1.0-4.8); Lymphocytes % (A) 4 %; MCH 28.5 pg (25.0-35.0); MCHC 30.5 g/dL (31.0-37.0); MCV 93.5 fL (80.0-100.0); Mean Platelet Volume 7.4; Monocytes # (A) 0.3 k/uL (0-1.0); Monocytes % (A) 2 %; Neutrophils # (A) 13.4 k/uL (1.3-7.7); Neutrophils % (A) 93 %; Platelet Count 447 k/uL (150-450); Poikilocytosis Slight; RBC 4.13 m/uL (4.30-5.90); RDW 15.8 % (11.5-15.5); WBC 14.4 k/uL (3.8-10.6)
[2021-05-09 14:14] LABS: ALT 9 U/L (4-49); AST 24 U/L (17-59); African American GFR (CKD) >90 (>60 ml/min/1.73 sqM); Albumin 2.5 g/dL (3.5-5.0); Albumin/Globulin Ratio 0.8; Alkaline Phosphatase 122 U/L (38-126); Anion Gap 6 mmol/L; Blood Urea Nitrogen 15 mg/dL (9-20); Calcium 8.3 mg/dL (8.4-10.2); Carbon Dioxide 28 mmol/L (22-30); Chloride 104 mmol/L (98-107); Glucose 212 mg/dL (74-99); Non-African American GFR(CKD) >90 (>60 ml/min/1.73 sqM); Potassium 4.4 mmol/L (3.5-5.1); Sodium 138 mmol/L (137-145); Total Bilirubin 0.6 mg/dL (0.2-1.3); Total Protein 5.5 g/dL (6.3-8.2)
[2021-05-09] MEDS ORDERED: CHLORHEXIDINE GLUCONATE 15 ML CUP MUCOUS MEM PRN (14:34)
[2021-05-09] MEDS ORDERED: ALBUTEROL NEBULIZED 2.5 MG/3 ML INHALATION PRN (14:34)
[2021-05-09] MEDS ORDERED: ONDANSETRON ODT 8 MG TAB.RAPDIS PO PRN (14:34)
[2021-05-09] MEDS ORDERED: RX INFO: IV CONTRAST WAS GIVEN 1 EACH MISC MISCELLANE PRN (14:35)
[2021-05-09] MEDS ORDERED: LIDOCAINE 4% CREAM 5 GM TUBE TOPICAL PRN (14:45)
--- NOTE | 2021-05-09 14:48 | P.CNPUL ---
History of Present Illness Consult date: 05/09/21 Requesting physician: Jesse Cole Reason for consult: dyspnea, hypoxemia, other Chief complaint: Dyspnea, hypoxia History of present illness: 70-year-old male patient with history of adenocarcinoma of the esophagus diagnosed on 02/03/2021, who has completed radiation therapy, and has received chemotherapy, who came in for a replacement of a malfunctioning Port-A-Cath from the right subclavian area and insertion of a new right-sided subclavian Port-A-Cath by Dr. Cole. Preoperatively patient was noted to be saturating only at 88%, and patient was having increased shortness of breath this morning. He was placed on supplemental oxygen, he is currently on 3 L of oxygen saturating at 94-95%, he is afebrile, blood pressure is stable. His chest x-ray showed right subclavian CVC tip and the expected region of the brachiocephalic vein confluence, cardiomegaly, right paratracheal soft tissue prominence, and no moderate to large right and small left pleural effusions with adjacent a telectasis and/or consolidation. Patient denies any fever or chills, no cough, no phlegm production, no hemoptysis. He does have history of COPD, not normally oxygen dependent, also has history of hypertension, hyperlipidemia, diabetes mellitus, sleep apnea on CPAP, GERD, occasional dysphagia, osteoarthritis. We were asked to see the patient for evaluation of dyspnea, hypoxia. Patient is seen in the face to recovery area following his procedure, he is sitting up on the gurney, breathing fairly comfortably, he is currently on 4 L of oxygen, pulse ox is 95%. His lab work showed a white blood cell count of 14.4, hemoglobin of 11.8, plan to count is 447, electrolytes and renal profile are w ithin normal limits, glucose is 212, his LFTs were within normal limits. Review of Systems All systems: negative Constitutional: Denies chills, Denies fever Eyes: denies blurred vision, denies pain Ears, nose, mouth and throat: Denies headache, Denies sore throat Cardiovascular: Denies chest pain, Denies shortness of breath Respiratory: Reports dyspnea, Denies cough Gastrointestinal: Denies abdominal pain, Denies diarrhea, Denies nausea, Denies vomiting Musculoskeletal: Denies myalgias Integumentary: Denies pruritus, Denies rash Neurological: Denies numbness, Denies weakness Psychiatric: Denies anxiety, Denies depression Endocrine: Denies fatigue, Denies weight change Past Medical History Past Medical History: Asthma, Cancer, COPD, Diabetes Mellitus, GERD/Reflux, Hyperlipidemia, Hypertension, Osteoarthritis (OA), Sleep Apnea/CPAP/BIPAP Additional Past Medical History / Comment(s): uses CPAP, occ. 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) History of Any Multi-Drug Resistant Organisms: None Reported Past Surgical History: Hernia Repair, Joint Replacement, Orthopedic Surgery Additional Past Surgical History / Comment(s): cystoscopy, both knees replaced, multiple arthroscopies knees, colonoscopies, dental implant, right hip replaced, stent in esophabus 02/03/21, port rt side inserted 03/2021, esophageal stent placed and port inserted 04/26/21 Past Anesthesia/Blood Transfusion Reactions: Previous Problems w/ Anesthesia, Family History of Problems w/ Anesthesia, Motion Sickness Additional Past Anesthesia/Blood Transfusion Reaction / Comment(s): very combative when waking up from general anesthesia, anxious & agitated w/IV sedation,. mother ponv Smoking Status: Never smoker - Past Family History Father Brother(s) Family Medical History: Cancer, Deep Vein Thrombosis (DVT) Additional Family Medical History / Comment(s): colon cancer Mother Family Medical History: Cancer Additional Family Medical History / Comment(s): . Father Family Medical History: Cancer Brother(s) Family Medical History: Cancer Sister(s) Family Medical History: Cancer Medications and Allergies Home Medications Medication Instructions Recorded Confirmed Type Optive Eye Drops 1 drop BOTH EYES BID 01/28/16 05/09/21 History RX: ALPRAZolam [Xanax] 0.25 mg PO TID PRN 01/28/16 05/09/21 History RX: Aspirin 325 mg PO DAILY 01/28/16 05/09/21 History RX: Metoprolol Succinate (ER) 50 mg PO BID 01/28/16 05/09/21 History [Toprol XL] RX: Potassium Chloride [Klor-Con 10 meq PO TID 01/28/16 05/09/21 History 10 ER] RX: Fluticasone/Salmeterol [Advair 1 puff INHALATION RT-Q12H 10/01/19 05/09/21 History 100-50 Diskus] RX: Meloxicam [Mobic] 7.5 mg PO DAILY@1700 10/01/19 05/09/21 History RX: glipiZIDE [Glucotrol] 5 mg PO BID@0700,1700 10/01/19 05/09/21 History RX: Albuterol Sulfate [Ventolin 1 - 2 puff INHALATION RT-Q4H PRN 02/01/21 05/09/21 History HFA] RX: Chlorhexidine Gluconate 5 ml PO DAILY PRN 02/01/21 05/09/21 History [Peridex] RX: Ezetimibe [Zetia] 10 mg PO HS 02/01/21 05/09/21 History RX: Fluticasone Nasal [place] 1 spray EA NOSTRIL BID 02/01/21 05/09/21 History [Flonase Nasal [place]] RX: Omeprazole [PriLOSEC] 20 mg PO BID 02/01/21 05/09/21 History RX: Simvastatin [Zocor] 20 mg PO HS 03/01/21 05/09/21 History RX: metFORMIN HCL [Glucophage] 1,000 mg PO BID 03/01/21 05/09/21 History RX: INSULIN ASPART (NovoLOG) 0 unit SQ ACHS ml 03/08/21 05/09/21 Rx [NovoLOG (formulary)] Dicyclomine [Bentyl] 10 mg PO DAILY 04/25/21 05/09/21 History Hydrocodone Bitartrate Liquid 15 ml PO Q6HR 04/25/21 05/09/21 History Lidocaine Cream 1 applicate TOPICAL DIRECTED 04/25/21 05/09/21 History Loratadine-Pseudoeph 10-240 mg 1 tab PO DAILY 04/25/21 05/09/21 History [Claritin-D 24 Hour] OLANZapine [ZyPREXA] 2.5 mg PO HS 04/25/21 05/09/21 History Ondansetron [Zofran ODT] 8 mg PO Q12HR PRN 04/25/21 05/09/21 History RX: Sucralfate 1 gm PO Q6HR 04/25/21 05/09/21 History guaiFENesin-Coden 100-10MG/5ML 10 ml PO Q6H 04/25/21 05/09/21 History [Robitussin AC] Compound Solution 1 applicate PO DIRECTED 05/06/21 05/09/21 History RX: Ibuprofen 200 mg PO Q4HR 05/06/21 05/09/21 History RX: diphenhydrAMINE [Benadryl] 25 mg PO Q6HR 05/06/21 05/09/21 History Allergies Allergy/AdvReac Type Severity Reaction Status Date / Time cefazolin [From Kefzol] Allergy Rash/Hives Verified 05/09/21 08:05 enalaprilat [From Vasotec] Allergy Cough,rash Verified 05/09/21 08:05 Penicillins Allergy Rash/Hives Verified 05/09/21 08:05 prochlorperazine Allergy facial Verified 05/09/21 08:05 [From Compazine] twitching, loss of sensation of mouth Sulfa (Sulfonamide Allergy Rash/Hives Verified 05/09/21 08:05 Antibiotics) Physical Exam Vitals: Vital Signs Temp Pulse Pulse Resp BP BP BP 05/09/21 14:20 97.5 F L 94 24 05/09/21 13:44 94 28 H 138/76 05/09/21 13:05 93 28 H 123/79 05/09/21 12:37 95 36 H 127/71 05/09/21 12:14 95 28 H 123/67 05/09/21 11:09 98 22 132/72 05/09/21 10:34 100 20 164/87 05/09/21 10:12 103 H 18 145/75 05/09/21 08:00 100 F H 100 20 164/87 05/09/21 07:45 24 BP Pulse Ox 05/09/21 14:20 112/70 95 05/09/21 13:44 94 L 05/09/21 13:05 97 05/09/21 12:37 95 05/09/21 12:14 94 L 05/09/21 11:09 94 L 05/09/21 10:34 92 L 05/09/21 10:12 91 L 05/09/21 08:00 92 L 05/09/21 07:45 88 L Intake and Output 05/08/21 05/09/21 05/09/21 22:59 06:59 14:59 Intake Total 756 Output Total 25 Balance 731 Intake: IV 756 Output: Estimated Blood Loss 25 Other: Weight 134.717 kg GENERAL EXAM: Alert, very pleasant, 70-year-old white male, sitting up on the gurney in the recovery area on 4 L of oxygen breathing comfortably currently on 4 L of oxygen with pulse ox of 94-95%, comfortable in no apparent distress. HEAD: Normocephalic/atraumatic. EYES: Normal reaction of pupils, equal size. Conjunctiva pink, sclera white. NOSE: Clear with pink turbinates. THROAT: No erythema or exudates. NECK: No masses, no JVD, no thyroid enlargement, no adenopathy. CHEST: No chest wall deformity. Symmetrical expansion. LUNGS: Equal air entry with diminished breath sounds over right base CVS: Regular rate and rhythm, normal S1 and S2, no gallops, no murmurs, no rubs ABDOMEN: Soft, nontender. No hepatosplenomegaly, normal bowel sounds, no guarding or rigidity. EXTREMITIES: No clubbing, no edema, no cyanosis, 2+ pulses and upper and lower extremities. MUSCULOSKELETAL: Muscle strength and tone normal. SPINE: No scoliosis or deformity SKIN: No rashes CENTRAL NERVOUS SYSTEM: Alert and oriented -3. No focal deficits, tone is no rmal in all 4 extremities. PSYCHIATRIC: Alert and oriented -3. Appropriate affect. Intact judgment and insight. Results - Laboratory Findings CBC and BMP: 05/09/21 13:37 05/09/21 13:37 Abnormal lab findings: Abnormal Labs 05/09/21 05/09/21 05/09/21 08:04 12:12 13:37 WBC 14.4 H RBC 4.13 L Hgb 11.8 L Hct 38.6 L MCHC 30.5 L RDW 15.8 H Neutrophils # 13.4 H Lymphocytes # 0.5 L Creatinine Glucose POC Glucose (mg/dL) 151 H 204 H Calcium Total Protein Albumin 05/09/21 13:37 WBC RBC Hgb Hct MCHC RDW Neutrophils # Lymphocytes # Creatinine 0.63 L Glucose 212 H POC Glucose (mg/dL) Calcium 8.3 L Total Protein 5.5 L Albumin 2.5 L - Diagnostic Findings Chest x-ray: report reviewed, image reviewed Assessment and Plan Plan: Assessment: #1. Acute hypoxic respiratory failure possibly related to right pleural effusion and pneumonia #2. History of metastatic adenocarcinoma of the esophagus, status post radiation and chemotherapy, PET scan on 02/28/2021 showed a distal esophageal neoplasm with abnormal thoracic and bilateral supraclavicular adenopathy, and abnormal left adrenal metastatic lesion #3. Chronic dysphagia #4. Significant weight loss related to dysphagia and esophageal adenocarcinoma #5. History of COPD #6. Diabetes mellitus type 2 #7. Hypertension #8. Hyperlipidemia #9. Osteoarthritis #10. Sleep apnea on CPAP #11. Anxiety Plan: Patient was seen and evaluated in phase II recovery Continues to require supplemental oxygen Currently on 4 L of oxygen Chest x-ray reviewed showing cardiomegaly, moderate to large right and small left pleural effusions We'll obtain CT chest with contrast We will possibly needf to drain right-sided pleural effusion based on review of the computed tomography scan of the chest Recommend patient for 24-hour observation status This was explained to the patient who is agreeable to stay for 24-hour observation In addition we spoke of discharge planning regarding setting up home oxygen for the patient Send a pro-calcitonin level and proBNP level We'll continue to follow his clinical course I have personally seen and examined the patient, performed the documentation and the assessment and plan as written. Number of minutes spent on the visit: [15] This is a joint evaluation that was done along with a nurse practitioner. This evaluation was done and more than 30 minutes. The patient will be admitted to the hospital. The patient will need home O2. Meanwhile, CAT scan of the chest was ordered and the CAT scan showed Stable 2.1 x 2.0 cm left adrenal metastatic lesion. Stable 1.4 cm benign-appearing thin-walled cyst in the liver axial image 52. New Moderate-sized right greater than left pleural effusions could reflect CHF exacerbation or fluid overload state. Metastatic disease from esophageal cancer redemonstrated. We'll proceed with a diagnostic and therapeutic thoracentesis on the right. This will be done in a.m. Time with Patient: Greater than 30
[2021-05-09] MEDS: HYDROmorphone 0.5 MG/0.5 ML SYRINGE IVP PRN ×2 (15:12→19:55)
--- NOTE | 2021-05-09 16:30 | CT ---
EXAMINATION TYPE: CT chest w con DATE OF EXAM: 05/09/2021 COMPARISON: Chest x-ray earlier today. PET/CT February 25, 2021 HISTORY: SOB, hx of esophageal ca CT DLP: 832.1 mGycm. Automated Exposure Control for Dose Reduction was Utilized. TECHNIQUE: CT scan of the thorax is performed following with IV Contrast, patient injected with 100 mL of Isovue 300. FINDINGS: LUNGS: Confirmation of moderate size right greater than left pleural effusions with associated compre ssive atelectasis. No pneumothorax seen bilaterally. MEDIASTINUM: No cardiomegaly. New small pericardial effusion is seen. Coronary artery calcification and/or stents are present. There is metallic stent in the mid to distal esophagus which has central a ir consistent with patency. Abrupt cut off at the distal end of stent could reflect tumor progression versus nondilated distal esophagus at level of diaphragm. There are persistent enlarged metastatic t horacic lymph nodes as well as abnormal left axillary lymph nodes similar in appearance to recent PET /CT. Subcarinal lymph nodes difficult to accurately visualize adjacent to esophageal mass or neoplasm . Enlarged main pulmonary artery consistent with underlying pulmonary hypertension redemonstrated. OTHER: Stable 2.1 x 2.0 cm left adrenal metastatic lesion. Stable 1.4 cm benign-appearing thin-walled cyst in the liver axial image 52. IMPRESSION: New Moderate-sized right greater than left pleural effusions could reflect CHF exacerbat ion or fluid overload state. Metastatic disease from esophageal cancer redemonstrated fairly stable f rom recent PET/CT.
[2021-05-09 17:20] LABS: Glucose,Whole Blood 191 mg/dL (75-99)
[2021-05-09] MEDS: diphenhydrAMINE 25 MG CAP PO SCH (17:42)
[2021-05-09] MEDS: MELOXICAM 7.5 MG TAB PO SCH (17:42)
[2021-05-09] MEDS: POTASSIUM CHLORIDE ER 10 MEQ TAB.ER.PRT PO SCH ×2 (17:42→21:25)
[2021-05-09] MEDS: PANTOPRAZOLE 40 MG TABLET PO SCH (17:42)
[2021-05-09] MEDS: HYDROcodone/APAP 15 ML SOLUTION PO PRN (17:43)
[2021-05-09] MEDS: DICYCLOMINE 10 MG CAP PO SCH (17:43)
[2021-05-09] MEDS: SUCRALFATE 1 GM TAB PO SCH (17:43)
[2021-05-09] MEDS: guaiFENesin-Coden 100-10MG/5ML 10 ML CUP PO SCH (17:43)
[2021-05-09] MEDS: glipiZIDE 5 MG TAB PO SCH (17:44)
[2021-05-09] MEDS: IBUPROFEN 200 MG TAB PO SCH ×2 (17:44→21:25)
--- NOTE | 2021-05-09 20:10 | P.HPIM ---
History of Present Illness H&P Date: 05/09/21 Xiang Pimentel, is a 70-year-old male well practice with a history of esophageal cancer, diagnosed in January 2021, patient received radiation therapy and is receiving chemotherapy. Patient presented to the hospital for a replacement for of a Port-A-Cath by Dr. Cole, after the procedure was completed patient was noticed to have shortness of breath with decreased O2 sat duration to 88% he was started on oxygen supplements, Dr. Herman was consulted to see him in the recovery area and he advised that patient should be admitted to the medical floor for further evaluation and treatment, patient has previous history of pleural effusion and may need thoracentesis. On review of systems patient is alert and oriented 3 he is complaining of shortness of breath and chest pain in the chest that is dull and continue was with episodes of severe sharp pain in the substernal area, he stated that he is receiving [place] but his pain is not well controlled, otherwise he denies any complaints at this time there is no fever or chills no headache or dizziness no cough no nausea or vomiting no abdominal pain no diarrhea no blood in the stools no burning with urination no frequency or urgency and no hematuria. His past medical history is positive for esophageal cancer as above, also history of hypertension, hyperlipidemia, diabetes mellitus, gastroesophageal reflux disease, osteoarthritis, and sleep apnea maintained on CPAP Past Medical History Past Medical History: Asthma, Cancer, COPD, Diabetes Mellitus, GERD/Reflux, Hyperlipidemia, Hypertension, Osteoarthritis (OA), Sleep Apnea/CPAP/BIPAP Additional Past Medical History / Comment(s): uses CPAP, occ. 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) History of Any Multi-Drug Resistant Organisms: None Reported Past Surgical History: Hernia Repair, Joint Replacement, Orthopedic Surgery Additional Past Surgical History / Comment(s): cystoscopy, both knees replaced, multiple arthroscopies knees, colonoscopies, dental implant, right hip replaced, stent in esophabus 02/03/21, port rt side inserted 03/2021, esophageal stent placed and port inserted 04/26/21 Past Anesthesia/Blood Transfusion Reactions: Previous Problems w/ Anesthesia, Family History of Problems w/ Anesthesia, Motion Sickness Additional Past Anesthesia/Blood Transfusion Reaction / Comment(s): very combative when waking up from general anesthesia, anxious & agitated w/IV sedation,. mother ponv Smoking Status: Never smoker - Past Family History Father Brother(s) Family Medical History: Cancer, Deep Vein Thrombosis (DVT) Additional Family Medical History / Comment(s): colon cancer Mother Family Medical History: Cancer Additional Family Medical History / Comment(s): . Father Family Medical History: Cancer Brother(s) Family Medical History: Cancer Sister(s) Family Medical History: Cancer Medications and Allergies Home Medications Medication Instructions Recorded Confirmed Type ALPRAZolam [Xanax] 0.25 mg PO TID PRN 01/28/16 05/09/21 History Aspirin 325 mg PO DAILY 01/28/16 05/09/21 History Metoprolol Succinate (ER) [Toprol 50 mg PO BID 01/28/16 05/09/21 History XL] Optive Eye Drops 1 drop BOTH EYES BID 01/28/16 05/09/21 History Potassium Chloride [Klor-Con 10 ER] 10 meq PO TID 01/28/16 05/09/21 History Fluticasone/Salmeterol [Advair 1 puff INHALATION RT-Q12H 10/01/19 05/09/21 History 100-50 Diskus] Meloxicam [Mobic] 7.5 mg PO DAILY@1700 10/01/19 05/09/21 History glipiZIDE [Glucotrol] 5 mg PO BID@0700,1700 10/01/19 05/09/21 History Albuterol Sulfate [Ventolin HFA] 1 - 2 puff INHALATION RT-Q4H PRN 02/01/21 05/09/21 History Chlorhexidine Gluconate [Peridex] 5 ml PO DAILY PRN 02/01/21 05/09/21 History Ezetimibe [Zetia] 10 mg PO HS 02/01/21 05/09/21 History Fluticasone Nasal [place] [Flonase 1 spray EA NOSTRIL BID 02/01/21 05/09/21 History Nasal [place]] Omeprazole [PriLOSEC] 20 mg PO BID 02/01/21 05/09/21 History Simvastatin [Zocor] 20 mg PO HS 03/01/21 05/09/21 History metFORMIN HCL [Glucophage] 1,000 mg PO BID 03/01/21 05/09/21 History INSULIN ASPART (NovoLOG) [NovoLOG 0 unit SQ ACHS ml 03/08/21 05/09/21 Rx (formulary)] Dicyclomine [Bentyl] 10 mg PO DAILY 04/25/21 05/09/21 History Hydrocodone Bitartrate Liquid 15 ml PO Q6HR 04/25/21 05/09/21 History Lidocaine Cream 1 applicate TOPICAL DIRECTED 04/25/21 05/09/21 History Loratadine-Pseudoeph 10-240 mg 1 tab PO DAILY 04/25/21 05/09/21 History [Claritin-D 24 Hour] OLANZapine [ZyPREXA] 2.5 mg PO HS 04/25/21 05/09/21 History Ondansetron [Zofran ODT] 8 mg PO Q12HR PRN 04/25/21 05/09/21 History Sucralfate 1 gm PO Q6HR 04/25/21 05/09/21 History guaiFENesin-Coden 100-10MG/5ML 10 ml PO Q6H 04/25/21 05/09/21 History [Robitussin AC] Compound Solution 1 applicate PO DIRECTED 05/06/21 05/09/21 History Ibuprofen 200 mg PO Q4HR 05/06/21 05/09/21 History diphenhydrAMINE [Benadryl] 25 mg PO Q6HR 05/06/21 05/09/21 History Allergies Allergy/AdvReac Type Severity Reaction Status Date / Time cefazolin [From Kefzol] Allergy Rash/Hives Verified 05/09/21 08:05 enalaprilat [From Vasotec] Allergy Cough,rash Verified 05/09/21 08:05 Penicillins Allergy Rash/Hives Verified 05/09/21 08:05 prochlorperazine Allergy facial Verified 05/09/21 08:05 [From Compazine] twitching, loss of sensation of mouth Sulfa (Sulfonamide Allergy Rash/Hives Verified 05/09/21 08:05 Antibiotics) Physical Exam Vitals: Vital Signs Temp Pulse Pulse Resp BP BP BP 05/09/21 13:44 94 28 H 138/76 05/09/21 13:05 93 28 H 123/79 04/04/22 12:37 95 36 H 127/71 05/09/21 12:14 95 28 H 123/67 05/09/21 11:09 98 22 132/72 05/09/21 10:34 100 20 164/87 05/09/21 10:12 103 H 18 145/75 05/09/21 08:00 100 F H 100 20 164/87 05/09/21 07:45 24 Pulse Ox 05/09/21 13:44 94 L 05/09/21 13:05 97 05/09/21 12:37 95 05/09/21 12:14 94 L 05/09/21 11:09 94 L 05/09/21 10:34 92 L 05/09/21 10:12 91 L 05/09/21 08:00 92 L 05/09/21 07:45 88 L Intake and Output 05/08/21 05/09/21 05/09/21 22:59 06:59 14:59 Intake Total 756 Output Total 25 Balance 731 Intake: IV 756 Output: Estimated Blood Loss 25 Other: Weight 134.717 kg In general patient is alert and oriented x 3 in no distress HEENT head normocephalic and atraumatic Neck is supple no JVD no goiter no lymphadenopathy no carotid bruit Chest examination is clear to auscultation no crackles no wheezing Cardiac exam reveals regular heart sounds S1 and S2 no gallops no murmurs Abdomen is soft nontender no organomegaly with normal bowel sounds Extremity exam reveals no edema no cyanosis or clubbing Neurological examination reveals no gross focal deficits Results CBC & Chem 7: 05/09/21 13:37 05/09/21 13:37 Labs: Abnormal Lab Results - Last 24 Hours (Table) 05/09/21 05/09/21 05/09/21 Range/Units 08:04 12:12 13:37 WBC 14.4 H (3.8-10.6) k/uL RBC 4.13 L (4.30-5.90) m/uL Hgb 11.8 L (13.0-17.5) gm/dL Hct 38.6 L (39.0-53.0) % MCHC 30.5 L (31.0-37.0) g/dL RDW 15.8 H (11.5-15.5) % Neutrophils # 13.4 H (1.3-7.7) k/uL Lymphocytes # 0.5 L (1.0-4.8) k/uL Creatinine (0.66-1.25) mg/dL Glucose (74-99) mg/dL POC Glucose (mg/dL) 151 H 204 H (75-99) mg/dL Calcium (8.4-10.2) mg/dL Total Protein (6.3-8.2) g/dL Albumin (3.5-5.0) g/dL 05/09/21 Range/Units 13:37 WBC (3.8-10.6) k/uL RBC (4.30-5.90) m/uL Hgb (13.0-17.5) gm/dL Hct (39.0-53.0) % MCHC (31.0-37.0) g/dL RDW (11.5-15.5) % Neutrophils # (1.3-7.7) k/uL Lymphocytes # (1.0-4.8) k/uL Creatinine 0.63 L (0.66-1.25) mg/dL Glucose 212 H (74-99) mg/dL POC Glucose (mg/dL) (75-99) mg/dL Calcium 8.3 L (8.4-10.2) mg/dL Total Protein 5.5 L (6.3-8.2) g/dL Albumin 2.5 L (3.5-5.0) g/dL Thrombosis Risk Factor Assmnt - Choose All That Apply Each Factor Represents 1 point: Abnormal pulmonary function (COPD), Minor surgery planned, Obesity (BMI >25) Each Risk Factor Represents 2 Points: Age 61-74 years, Arthroscopic surgery, Central venous access, Malignancy Each Risk Factor Represents 5 Points: Elective major lower extremity arthoplasty Thrombosis Risk Factor Assessment Total Risk Factor Score: 16 Thrombosis Risk Factor Assessment Level: High Risk Assessment and Plan Plan: 1. Shortness of breath with decreased oxygen saturation 2. Known history of esophageal cancer 3. Underlying history of hypertension 4. Underlying history of hyperlipidemia 5. Underlying history of insulin-dependent diabetes mellitus 6. Underlying history of obstructive sleep apnea At this time patient is admitted to telemetry floor Continue was oxygen supplement, pain management Home medications reviewed and reordered Computed tomography scan of the chest was ordered Pulmonary consultation following Will recheck labs and follow-up in a.m.
[2021-05-09] MEDS: SYMBICORT 80-4.5 MCG INHALER INHALATION SCH (20:17)
[2021-05-09 20:25] LABS: Glucose,Whole Blood 235 mg/dL (75-99)
[2021-05-09] MEDS ORDERED: NON FORMULARY DRUG (Metformin Hcl [Glucophage] 1,000 MG Tablet) PO SCH (21:00)
[2021-05-09] MEDS: ATORVASTATIN 10 MG TAB PO SCH (21:25)
[2021-05-09] MEDS: OLANZapine 2.5 MG TAB PO SCH (21:25)
[2021-05-09] MEDS: METOPROLOL SUCCINATE (ER) 50 MG TAB.ER.24H PO SCH (21:25)
[2021-05-09] MEDS: EZETIMIBE 10 MG TAB PO SCH (21:25)
[2021-05-09] MEDS: ARTIFICIAL TEARS-HYPROMELLOSE DROPS 15 ML BTL BOTH EYES SCH (21:26)
[2021-05-09] MEDS: FLUTICASONE 50MCG/SPRAY NASAL 16GM EA NOSTRIL SCH (21:27)
[2021-05-09] MEDS: ALPRAZolam 0.25 MG TAB PO PRN (21:36)
[2021-05-09 22:29] LABS: Glucose,Whole Blood 225 mg/dL (75-99)
[2021-05-09] MEDS: INSULIN ASPART (NovoLOG) 100 UNIT/ML VIAL SQ SCH (22:31)
[2021-05-10] MEDS: diphenhydrAMINE 25 MG CAP PO SCH ×5 (00:42→23:37)
[2021-05-10] MEDS: IBUPROFEN 200 MG TAB PO SCH ×7 (00:43→23:37)
[2021-05-10] MEDS: SUCRALFATE 1 GM TAB PO SCH ×5 (00:44→23:37)
[2021-05-10] MEDS: HYDROmorphone 0.5 MG/0.5 ML SYRINGE IVP PRN ×6 (00:48→22:00)
[2021-05-10] MEDS: guaiFENesin-Coden 100-10MG/5ML 10 ML CUP PO SCH ×5 (00:48→23:37)
[2021-05-10] MEDS: HYDROcodone/APAP 15 ML SOLUTION PO PRN ×2 (06:07→13:22)
[2021-05-10 07:10] LABS: Basophils # (A) 0.1 k/uL (0-0.2); Basophils % (A) 0 %; Eosinophils # (A) 0.1 k/uL (0-0.7); Eosinophils % (A) 1 %; HCT 40.7 % (39.0-53.0); HGB 12.3 gm/dL (13.0-17.5); Hypochromasia Marked; Lymphocytes # (A) 0.6 k/uL (1.0-4.8); Lymphocytes % (A) 5 %; MCHC 30.2 g/dL (31.0-37.0); MCV 96.1 fL (80.0-100.0); Mean Platelet Volume 7.5; Monocytes # (A) 0.8 k/uL (0-1.0); Monocytes % (A) 6 %; Neutrophils # (A) 11.9 k/uL (1.3-7.7); Neutrophils % (A) 87 %; Platelet Count 408 k/uL (150-450); Poikilocytosis Slight; RBC 4.23 m/uL (4.30-5.90); RDW 15.7 % (11.5-15.5); WBC 13.7 k/uL (3.8-10.6)
[2021-05-10 07:12] LABS: Glucose,Whole Blood 163 mg/dL (75-99)
[2021-05-10 07:14] LABS: ALT 10 U/L (4-49); AST 28 U/L (17-59); African American GFR (CKD) >90 (>60 ml/min/1.73 sqM); Albumin 2.4 g/dL (3.5-5.0); Albumin/Globulin Ratio 0.8; Alkaline Phosphatase 107 U/L (38-126); Anion Gap 7 mmol/L; Blood Urea Nitrogen 16 mg/dL (9-20); Calcium 8.3 mg/dL (8.4-10.2); Carbon Dioxide 26 mmol/L (22-30); Chloride 104 mmol/L (98-107); Glucose 155 mg/dL (74-99); Non-African American GFR(CKD) >90 (>60 ml/min/1.73 sqM); Potassium 4.3 mmol/L (3.5-5.1); Sodium 137 mmol/L (137-145); Total Bilirubin 0.6 mg/dL (0.2-1.3); Total Protein 5.4 g/dL (6.3-8.2)
[2021-05-10] MEDS ORDERED: INSULIN ASPART (NovoLOG) 100 UNIT/ML VIAL SQ SCH (07:30)
[2021-05-10] MEDS: LORATADINE-PSEUDOEPH 5-120 MG 1 EACH TAB.ER.12H PO SCH ×2 (09:14→20:33)
[2021-05-10] MEDS: glipiZIDE 5 MG TAB PO SCH ×2 (09:14→17:42)
[2021-05-10] MEDS: POTASSIUM CHLORIDE ER 10 MEQ TAB.ER.PRT PO SCH ×3 (09:14→20:31)
[2021-05-10] MEDS: ASPIRIN 325 MG TAB PO SCH (09:14)
[2021-05-10] MEDS: INSULIN ASPART (NovoLOG) 100 UNIT/ML VIAL SQ SCH ×4 (09:15→20:34)
[2021-05-10] MEDS: DICYCLOMINE 10 MG CAP PO SCH (09:15)
[2021-05-10] MEDS: METOPROLOL SUCCINATE (ER) 50 MG TAB.ER.24H PO SCH ×2 (09:15→20:31)
[2021-05-10] MEDS: PANTOPRAZOLE 40 MG TABLET PO SCH (09:15)
[2021-05-10] MEDS: ARTIFICIAL TEARS-HYPROMELLOSE DROPS 15 ML BTL BOTH EYES SCH ×2 (09:17→20:30)
[2021-05-10] MEDS: FLUTICASONE 50MCG/SPRAY NASAL 16GM EA NOSTRIL SCH ×2 (09:18→20:30)
[2021-05-10] MEDS: SYMBICORT 80-4.5 MCG INHALER INHALATION SCH ×2 (09:22→20:02)
--- NOTE | 2021-05-10 11:27 | P.PCN ---
Date of Procedure: 05/10/21 Preoperative Diagnosis: Right-sided pleural effusion Postoperative Diagnosis: Right-sided pleural effusion Procedure(s) Performed: Thoracentesis Anesthesia: local Surgeon: Seema Herman Estimated Blood Loss (ml): 0 Pathology: other Condition: stable Disposition: same day Operative Findings: A time out was performed and the chest x-ray was reviewed, the appropriate side was confirmed and marked. My hands were washed immediately prior to the procedure. I wore a surgical cap, mask with protective eyewear, sterile gown and sterile gloves throughout the procedure. The patient was prepped and draped in a sterile manner using chlorhexidine scrub after the appropriate level was percussed and confirmed by ultrasound. 1% lidocaine was used to anesthesize the skin, subcutaneous tissue, superior aspect of the rib periosteum and parietal pleura. A finder needle was then introduced over the superior aspect of the rib to locate the pleural fluid; 2colored fluid was aspirated at a depth of approximately 2 cm. A 10-blade scalpel was used to kevin the skin at the insertion site. The [id number] needle was then introduced through the skin incision into the pleural space using negative aspiration pressure and the red colometric indicator to confirm appropriate positioning of the needle. The thoracentesis catheter was then threaded without difficulty. 2000 ml of turbid colored fluid was removed without difficulty. The catheter was then removed. No immediate complications were noted during the procedure. A post-procedure chest x-ray is pending at the time of this note. The fluid will be sent for studies. Estimated blood loss is 0cc
--- NOTE | 2021-05-10 11:50 | XR ---
EXAMINATION TYPE: XR chest 1V DATE OF EXAM: 05/10/2021 COMPARISON: 05/09/2021 INDICATION: Postthoracentesis TECHNIQUE: Single frontal view of the chest is obtained. FINDINGS: The heart size is normal. The pulmonary vasculature is normal. Small right and minimal left pleural effusion is present. The right pleural effusion is diminished. N o pneumothorax. Port is present on the right with the tip in proximal superior vena cava region. IMPRESSION: 1. No pneumothorax post right thoracentesis. 2. Small right and minimal left pleural effusion remain present.
[2021-05-10 12:01] LABS: Glucose,Whole Blood 124 mg/dL (75-99)
--- NOTE | 2021-05-10 13:33 | P.PN ---
Subjective Progress Note Date: 05/10/21 70-year-old male patient with history of adenocarcinoma of the esophagus diagno sed on 02/03/2021, who has completed radiation therapy, and has received chemotherapy, who came in for a replacement of a malfunctioning Port-A-Cath from the right subclavian area and insertion of a new right-sided subclavian Port-A-Cath by Dr. Cole. Preoperatively patient was noted to be saturating only at 88%, and patient was having increased shortness of breath this morning. He was placed on supplemental oxygen, he is currently on 3 L of oxygen saturating at 94-95%, he is afebrile, blood pressure is stable. His chest x-ray showed right subclavian CVC tip and the expected region of the brachiocephalic vein confluence, cardiomegaly, right paratracheal soft tissue prominence, and no moderate to large right and small left pleural effusions with adjacent atelectasis and/or consolidation. Patient denies any fever or chills, no cough, no phlegm production, no hemoptysis. He does have history of COPD, not normally oxygen dependent, also has history of hypertension, hyperlipidemia, diabetes mellitus, sleep apnea on CPAP, GERD, occasional dysphagia, osteoarthritis. We were asked to see the patient for evaluation of dyspnea, hypoxia. Patient is seen in the face to recovery area following his procedure, he is sitting up on the gurney, breathing fairly comfortably, he is currently on 4 L of oxygen, pulse ox is 95%. His lab work showed a white blood cell count of 14.4, hemoglo bin of 11.8, plan to count is 447, electrolytes and renal profile are within normal limits, glucose is 212, his LFTs were within normal limits. 05/10/2021, I'm seeing the patient for a follow-up. The patient remains on oxygen and the patient is having shortness of breath. Note that a computed to mography scan of the chest was done yesterday and it showed moderate-sized right-sided pleural effusion and a left-sided pleural effusion along with some compressive atelectatic changes in lung bases bilaterally. No cardiomegaly. Small pericardial effusion. There were coronary calcifications. There was also has tendon the distal esophagus and the esophagus was patent. There was abrupt cut off of the distal end of the stent which could represent either tumor progression versus nondilated distal esophagus. There are persistent and large metastatic thoracic lymph nodes as well as abnormal left axillary lymph nodes similar to the penis and the previous PET/CT. There is also subcarinal lymph nodes that are difficult to actually visualize adjacent to the esophageal mass. There was another 2.1 x 2.0 stable left adrenal metastatic lesion in the stable 1.4 cm benign-appearing thin-walled cyst in the liver. Based on those findings, I performed a thoracentesis of the right lung at the bedside and a total of 2 L of fluid was removed successfully from the patient. Follow-up chest x-ray showed questionable right apical pneumothorax which is essentially negligible and the patient is feeling much better this point in time. The plan is to consider proceeding with thoracentesis of the left lung with the next 24 hours. The blood work from today shows a hemoglobin of 12.3 with a white second of 13.7. BUN is at 60 with a creatinine of 0.6. Objective - Vital Signs Vital signs: Vital Signs Temp 97.4 F L 05/10/21 12:10 Pulse 86 05/10/21 12:10 Resp 19 05/10/21 12:10 BP 113/72 05/10/21 12:10 Pulse Ox 94 L 05/10/21 12:10 Intake & Output 05/09/21 05/10/21 05/10/21 18:59 06:59 18:59 Intake Total 756 Output Total 25 Balance 731 Weight 134.717 kg Intake: IV 756 Output: Estimated Blood Loss 25 Other: # Voids 1 - Exam GENERAL EXAM: Alert, very pleasant, 70-year-old white male, sitting up on the gurney in the recovery area on 4 L of oxygen breathing comfortably currently on 4 L of oxygen with pulse ox of 94-95%, comfortable in no apparent distress. HEAD: Normocephalic/atraumatic. EYES: Normal reaction of pupils, equal size. Conjunctiva pink, sclera white. NOSE: Clear with pink turbinates. THROAT: No erythema or exudates. NECK: No masses, no JVD, no thyroid enlargement, no adenopathy. CHEST: No chest wall deformity. Symmetrical expansion. LUNGS: Equal air entry with diminished breath sounds over right base CVS: Regular rate and rhythm, normal S1 and S2, no gallops, no murmurs, no rubs ABDOMEN: Soft, nontender. No hepatosplenomegaly, normal bowel sounds, no guarding or rigidity. EXTREMITIES: No clubbing, no edema, no cyanosis, 2+ pulses and upper and lower extremities. MUSCULOSKELETAL: Muscle strength and tone normal. SPINE: No scoliosis or deformity SKIN: No rashes CENTRAL NERVOUS SYSTEM: Alert and oriented -3. No focal deficits, tone is normal in all 4 extremities. PSYCHIATRIC: Alert and oriented -3. Appropriate affect. Intact judgment and insight. - Labs CBC & Chem 7: 05/10/21 06:32 05/10/21 06:32 Labs: Abnormal Lab Results - Last 24 Hours (Table) 05/09/21 05/09/21 05/09/21 Range/Units 13:37 13:37 15:29 WBC 14.4 H (3.8-10.6) k/uL RBC 4.13 L (4.30-5.90) m/uL Hgb 11.8 L (13.0-17.5) gm/dL Hct 38.6 L (39.0-53.0) % MCHC 30.5 L (31.0-37.0) g/dL RDW 15.8 H (11.5-15.5) % Neutrophils # 13.4 H (1.3-7.7) k/uL Lymphocytes # 0.5 L (1.0-4.8) k/uL Creatinine 0.63 L (0.66-1.25) mg/dL Glucose 212 H (74-99) mg/dL POC Glucose (mg/dL) (75-99) mg/dL Calcium 8.3 L (8.4-10.2) mg/dL Total Protein 5.5 L (6.3-8.2) g/dL Albumin 2.5 L (3.5-5.0) g/dL Procalcitonin 0.20 H (0.02-0.09) ng/mL 05/09/21 05/09/21 05/09/21 Range/Units 17:18 20:23 22:27 WBC (3.8-10.6) k/uL RBC (4.30-5.90) m/uL Hgb (13.0-17.5) gm/dL Hct (39.0-53.0) % MCHC (31.0-37.0) g/dL RDW (11.5-15.5) % Neutrophils # (1.3-7.7) k/uL Lymphocytes # (1.0-4.8) k/uL Creatinine (0.66-1.25) mg/dL Glucose (74-99) mg/dL POC Glucose (mg/dL) 191 H 235 H 225 H (75-99) mg/dL Calcium (8.4-10.2) mg/dL Total Protein (6.3-8.2) g/dL Albumin (3.5-5.0) g/dL Procalcitonin (0.02-0.09) ng/mL 05/10/21 05/10/21 05/10/21 Range/Units 06:32 06:32 07:08 WBC 13.7 H (3.8-10.6) k/uL RBC 4.23 L (4.30-5.90) m/uL Hgb 12.3 L (13.0-17.5) gm/dL Hct (39.0-53.0) % MCHC 30.2 L (31.0-37.0) g/dL RDW 15.7 H (11.5-15.5) % Neutrophils # 11.9 H (1.3-7.7) k/uL Lymphocytes # 0.6 L (1.0-4.8) k/uL Creatinine 0.61 L (0.66-1.25) mg/dL Glucose 155 H (74-99) mg/dL POC Glucose (mg/dL) 163 H (75-99) mg/dL Calcium 8.3 L (8.4-10.2) mg/dL Total Protein 5.4 L (6.3-8.2) g/dL Albumin 2.4 L (3.5-5.0) g/dL Procalcitonin (0.02-0.09) ng/mL 05/10/21 Range/Units 11:56 WBC (3.8-10.6) k/uL RBC (4.30-5.90) m/uL Hgb (13.0-17.5) gm/dL Hct (39.0-53.0) % MCHC (31.0-37.0) g/dL RDW (11.5-15.5) % Neutrophils # (1.3-7.7) k/uL Lymphocytes # (1.0-4.8) k/uL Creatinine (0.66-1.25) mg/dL Glucose (74-99) mg/dL POC Glucose (mg/dL) 124 H (75-99) mg/dL Calcium (8.4-10.2) mg/dL Total Protein (6.3-8.2) g/dL Albumin (3.5-5.0) g/dL Procalcitonin (0.02-0.09) ng/mL Assessment and Plan Plan: #1. Acute hypoxic respiratory failure possibly related to bilateral pleural effusion. The exact nature of the pleural effusion is not clear. The patient has some atelectatic changes in lung bases bilaterally. Consider CHF versus malignant effusion versus parapneumonic effusions. #2. History of metastatic adenocarcinoma of the esophagus, status post ra diation and chemotherapy, PET scan on 02/28/2021 showed a distal esophageal neoplasm with abnormal thoracic and bilateral supraclavicular adenopathy, and abnormal left adrenal metastatic lesion #3. Chronic dysphagia #4. Significant weight loss related to dysphagia and esophageal adenocarcinoma #5. History of COPD #6. Diabetes mellitus type 2 #7. Hypertension #8. Hyperlipidemia #9. Osteoarthritis #10. Sleep apnea on CPAP #11. Anxiety Plan Diagnostic and therapeutic thoracentesis of the right lung was done and a total of 2 L of fluid was removed. FiO2 will be gradually weaned off to maintain a saturation above 90%. The fluid will be sent for analysis including chemistry a nd cytology. Clinically improved and the chest x-ray showing no major complications and the patient will be considered for another thoracentesis of the left lung with the next 24 hours. May possibly not need oxygen on outpatient basis after the pleural fluid
[2021-05-10 17:34] LABS: Glucose,Whole Blood 197 mg/dL (75-99)
[2021-05-10] MEDS: ALPRAZolam 0.25 MG TAB PO PRN (17:42)
[2021-05-10] MEDS: MELOXICAM 7.5 MG TAB PO SCH (17:42)
--- NOTE | 2021-05-10 20:01 | P.PN ---
Subjective Progress Note Date: 05/10/21 Xiang Pimentel, is a 70-year-old male well practice with a history of esophageal cancer, diagnosed in January 2021, patient received radiation therapy and is receiving chemotherapy. Patient presented to the hospital for a replacement for of a Port-A-Cath by Dr. Cole, after the procedure was completed patient was noticed to have shortness of breath with decreased O2 sat duration to 88% he was started on oxygen supplements, Dr. Herman was consulted to see him in the recovery area and he advised that patient should be admitted to the medical floor for further evaluation and treatment, patient has previous history of pleural effusion and may need thoracentesis. On review of systems patient is alert and oriented 3 he is complaining of shortness of breath and chest pain in the chest that is dull and continue was with episodes of severe sharp pain in the substernal area, he stated that he is receiving Delta but his pain is not well controlled, otherwise he denies any complaints at this time there is no fever or chills no headache or dizziness no cough no nausea or vomiting no abdominal pain no diarrhea no blood in the stools no burning with urination no frequency or urgency and no hematuria. His past medical history is positive for esophageal cancer as above, also history of hypertension, hyperlipidemia, diabetes mellitus, gastroesophageal reflux disease, osteoarthritis, and sleep apnea maintained on CPAP On 05/10/2021 patient was seen and examined on the medical floor he is alert and oriented 3 in no apparent distress there is no fever or chills no headache or dizziness, patient had a temperature of 100 yesterday today temperature is down to 98 there is no chest pain shortness of breath has improved patient has occasional cough no nausea or vomiting no abdominal pain no diarrhea and no urinary symptoms, patient has leukocytosis white blood count was 14,000 yesterday and 13.8 today he received 1 dose of IV clindamycin yesterday prior to surgical intervention for Port-A-Cath placement. Case was discussed with Dr. Herman at this time will obtain blood cultures and cover with IV clindamycin Will monitor CBC closely Objective - Vital Signs Vital signs: Vital Signs Temp 97.3 F L 05/10/21 04:46 Pulse 84 05/10/21 04:46 Resp 16 05/10/21 04:46 BP 123/72 05/10/21 04:46 Pulse Ox 99 05/10/21 04:46 Intake & Output 05/09/21 05/10/21 05/10/21 18:59 06:59 18:59 Intake Total 756 Output Total 25 Balance 731 Weight 134.717 kg Intake: IV 756 Output: Estimated Blood Loss 25 Other: # Voids 1 - Exam In general patient is alert and oriented x 3 in no distress HEENT head normocephalic and atraumatic Neck is supple no JVD no goiter no lymphadenopathy no carotid bruit Chest examination is clear to auscultation no crackles no wheezing Cardiac exam reveals regular heart sounds S1 and S2 no gallops no murmurs Abdomen is soft nontender no organomegaly with normal bowel sounds Extremity exam reveals no edema no cyanosis or clubbing Neurological examination reveals no gross focal deficits - Labs CBC & Chem 7: 05/10/21 06:32 05/10/21 06:32 Labs: Abnormal Lab Results - Last 24 Hours (Table) 05/09/21 05/09/21 05/09/21 Range/Units 12:12 13:37 13:37 WBC 14.4 H (3.8-10.6) k/uL RBC 4.13 L (4.30-5.90) m/uL Hgb 11.8 L (13.0-17.5) gm/dL Hct 38.6 L (39.0-53.0) % MCHC 30.5 L (31.0-37.0) g/dL RDW 15.8 H (11.5-15.5) % Neutrophils # 13.4 H (1.3-7.7) k/uL Lymphocytes # 0.5 L (1.0-4.8) k/uL Creatinine 0.63 L (0.66-1.25) mg/dL Glucose 212 H (74-99) mg/dL POC Glucose (mg/dL) 204 H (75-99) mg/dL Calcium 8.3 L (8.4-10.2) mg/dL Total Protein 5.5 L (6.3-8.2) g/dL Albumin 2.5 L (3.5-5.0) g/dL Procalcitonin (0.02-0.09) ng/mL 05/09/21 05/09/21 05/09/21 Range/Units 15:29 17:18 20:23 WBC (3.8-10.6) k/uL RBC (4.30-5.90) m/uL Hgb (13.0-17.5) gm/dL Hct (39.0-53.0) % MCHC (31.0-37.0) g/dL RDW (11.5-15.5) % Neutrophils # (1.3-7.7) k/uL Lymphocytes # (1.0-4.8) k/uL Creatinine (0.66-1.25) mg/dL Glucose (74-99) mg/dL POC Glucose (mg/dL) 191 H 235 H (75-99) mg/dL Calcium (8.4-10.2) mg/dL Total Protein (6.3-8.2) g/dL Albumin (3.5-5.0) g/dL Procalcitonin 0.20 H (0.02-0.09) ng/mL 05/09/21 05/10/21 05/10/21 Range/Units 22:27 06:32 06:32 WBC 13.7 H (3.8-10.6) k/uL RBC 4.23 L (4.30-5.90) m/uL Hgb 12.3 L (13.0-17.5) gm/dL Hct (39.0-53.0) % MCHC 30.2 L (31.0-37.0) g/dL RDW 15.7 H (11.5-15.5) % Neutrophils # 11.9 H (1.3-7.7) k/uL Lymphocytes # 0.6 L (1.0-4.8) k/uL Creatinine 0.61 L (0.66-1.25) mg/dL Glucose 155 H (74-99) mg/dL POC Glucose (mg/dL) 225 H (75-99) mg/dL Calcium 8.3 L (8.4-10.2) mg/dL Total Protein 5.4 L (6.3-8.2) g/dL Albumin 2.4 L (3.5-5.0) g/dL Procalcitonin (0.02-0.09) ng/mL 05/10/21 Range/Units 07:08 WBC (3.8-10.6) k/uL RBC (4.30-5.90) m/uL Hgb (13.0-17.5) gm/dL Hct (39.0-53.0) % MCHC (31.0-37.0) g/dL RDW (11.5-15.5) % Neutrophils # (1.3-7.7) k/uL Lymphocytes # (1.0-4.8) k/uL Creatinine (0.66-1.25) mg/dL Glucose (74-99) mg/dL POC Glucose (mg/dL) 163 H (75-99) mg/dL Calcium (8.4-10.2) mg/dL Total Protein (6.3-8.2) g/dL Albumin (3.5-5.0) g/dL Procalcitonin (0.02-0.09) ng/mL Assessment and Plan Plan: 1. Shortness of breath with decreased oxygen saturation 2. Known history of esophageal cancer 3. Underlying history of hypertension 4. Underlying history of hyperlipidemia 5. Underlying history of insulin-dependent diabetes mellitus 6. Underlying history of obstructive sleep apnea At this time patient is admitted to telemetry floor Continue was oxygen supplement, pain management Home medications reviewed and reordered Computed tomography scan of the chest was ordered Pulmonary consultation following Will recheck labs and follow-up in a.m.
[2021-05-10 20:04] LABS: Glucose,Whole Blood 140 mg/dL (75-99)
[2021-05-10] MEDS ORDERED: ENOXAPARIN 40 MG/0.4 ML SYRINGE SQ SCH (20:15)
[2021-05-10] MEDS: ATORVASTATIN 10 MG TAB PO SCH (20:31)
[2021-05-10] MEDS: EZETIMIBE 10 MG TAB PO SCH (20:31)
[2021-05-10] MEDS: CLINDAMYCIN 600 MG in DEXTROSE 5% IN WATER 50 ML IVPB SCH ×2 (20:32)
[2021-05-10] MEDS: OLANZapine 2.5 MG TAB PO SCH (20:33)
[2021-05-11 02:05] LABS: Appearance,BF Hazy
[2021-05-11 04:04] VITALS: RESP 18
[2021-05-11] MEDS: HYDROmorphone 0.5 MG/0.5 ML SYRINGE IVP PRN ×3 (04:04→13:22)
[2021-05-11] MEDS: IBUPROFEN 200 MG TAB PO SCH ×3 (04:05→13:28)
[2021-05-11] MEDS: CLINDAMYCIN 600 MG in DEXTROSE 5% IN WATER 50 ML IVPB SCH ×2 (04:05)
[2021-05-11] MEDS: LACTATED RINGERS 1,000 ML IV SCH (05:09)
[2021-05-11] MEDS: diphenhydrAMINE 25 MG CAP PO SCH ×2 (05:50→13:22)
[2021-05-11] MEDS: guaiFENesin-Coden 100-10MG/5ML 10 ML CUP PO SCH ×2 (05:50→13:21)
[2021-05-11] MEDS: SUCRALFATE 1 GM TAB PO SCH ×2 (05:50→13:21)
[2021-05-11 05:52] LABS: Glucose, BF Source Thoracentesis Fluid; Glucose, Body Fluid 59 mg/dL; LDH, Body Fluid Source Thoracentesis Fluid; T. Protein, Body Fluid Source Thoracentesis Fluid; Total Protein, Body Fluid 3330 mg/dL
[2021-05-11 07:19] LABS: Glucose,Whole Blood 122 mg/dL (75-99)
[2021-05-11] MEDS: INSULIN ASPART (NovoLOG) 100 UNIT/ML VIAL SQ SCH (08:02)
[2021-05-11] MEDS: SYMBICORT 80-4.5 MCG INHALER INHALATION SCH (08:18)
[2021-05-11] MEDS: DICYCLOMINE 10 MG CAP PO SCH (08:35)
[2021-05-11] MEDS: POTASSIUM CHLORIDE ER 10 MEQ TAB.ER.PRT PO SCH (08:35)
[2021-05-11] MEDS: PANTOPRAZOLE 40 MG TABLET PO SCH (08:35)
[2021-05-11] MEDS: METOPROLOL SUCCINATE (ER) 50 MG TAB.ER.24H PO SCH (08:35)
[2021-05-11] MEDS: glipiZIDE 5 MG TAB PO SCH (08:36)
[2021-05-11] MEDS: ASPIRIN 325 MG TAB PO SCH (08:36)
[2021-05-11] MEDS: LORATADINE-PSEUDOEPH 5-120 MG 1 EACH TAB.ER.12H PO SCH (08:36)
[2021-05-11] MEDS: FLUTICASONE 50MCG/SPRAY NASAL 16GM EA NOSTRIL SCH (08:37)
[2021-05-11] MEDS: ARTIFICIAL TEARS-HYPROMELLOSE DROPS 15 ML BTL BOTH EYES SCH (08:37)
[2021-05-11] MEDS: HYDROcodone/APAP 15 ML SOLUTION PO PRN (08:38)
--- NOTE | 2021-05-11 09:55 | P.PCN ---
Date of Procedure: 05/11/21 Description of Procedure: Date of Procedure: 05/11/21 Preoperative Diagnosis: LEFT-sided pleural effusion Postoperative Diagnosis: LEFT -sided pleural effusion Procedure(s) Performed: Thoracentesis Anesthesia: local Surgeon: Seema Herman Estimated Blood Loss (ml): 0 Pathology: other Condition: stable Disposition: same day Operative Findings: A time out was performed and the chest x-ray was reviewed, the appropriate side was confirmed and marked. My hands were washed immediately prior to the procedure. I wore a surgical cap, mask with protective eyewear, sterile gown and sterile gloves throughout the procedure. The patient was prepped and draped in a sterile manner using chlorhexidine scrub after the appropriate level was percussed and confirmed by ultrasound. 1% lidocaine was used to anesthesize the skin, subcutaneous tissue, superior aspect of the rib periosteum and parietal pleura. A finder needle was then introduced over the superior aspect of the rib to locate the pleural fluid; 2colored fluid was aspirated at a depth of approximately 2 cm. A 10-blade scalpel was used to kevin the skin at the insertion site. The Lumv-c-Eajiyxim needle was then introduced through the skin incision into the pleural space using negative aspiration pressure and the red colometric indicator to confirm appropriate positioning of the needle. The thoracentesis catheter was then threaded without difficulty.650 ml of turbid c olored fluid was removed without difficulty. The catheter was then removed. No immediate complications were noted during the procedure. A post-procedure chest x-ray is pending at the time of this note. The fluid will be sent for studies. Estimated blood loss is 0cc
--- NOTE | 2021-05-11 10:12 | XR ---
EXAMINATION TYPE: XR chest 1V DATE OF EXAM: 05/11/2021 COMPARISON: 05/10/2021 INDICATION: Left-sided thoracentesis TECHNIQUE: Single frontal view of the chest is obtained. FINDINGS: The heart size is normal. The pulmonary vasculature is normal. Bibasilar infiltrates are present. Minimal effusions are present. No pneumothorax is evident post tho racentesis left side. Right-sided port is present with tip in the proximal vena cava region. IMPRESSION: 1. No pneumothorax postthoracentesis. 2. Minimal bilateral pleural fluid collections.
[2021-05-11 10:22] LABS: Basophils # (A) 0.08 X 10*3/uL (0.00-0.10); Basophils % (A) 0.9 %; Eosinophils # (A) 0.95 X 10*3/uL (0.04-0.35); Eosinophils % (A) 10.4 %; HCT 33.7 % (39.6-50.0); HGB 10.2 g/dL (13.0-17.0); Lymphocytes # (A) 0.62 X 10*3/uL (0.90-5.00); Lymphocytes % (A) 6.8 %; MCH 28.1 pg (27.0-32.0); MCHC 30.3 g/dL (32.0-37.0); MCV 92.8 fL (80.0-97.0); Mean Platelet Volume 9.5 fL (9.5-12.2); Monocytes % (A) 7.7 %; NRBC Per 100 WBC 0 /100 WBCS (0.0-0.0); Neutrophils # (A) 6.66 X 10*3/uL (1.80-7.70); Neutrophils % (A) 73.2 %; Platelet Count 391 X 10*3/uL (140-440); RBC 3.63 X 10*6/uL (4.40-5.60); RDW 15.9 % (11.5-14.5)
[2021-05-11 10:32] LABS: African American GFR (CKD) 111.6 (60.0-200.0); Albumin 2.5 g/dL (3.8-4.9); Albumin/Globulin Ratio 1.09 (1.60-3.17); Anion Gap 8.7 mmol/L (10.00-18.00); Blood Urea Nitrogen 14.7 mg/dL (9.0-27.0); Calcium 8.3 mg/dL (8.7-10.3); Carbon Dioxide 27.3 mmol/L (20.0-27.5); Globulin 2.3 g/dL (1.6-3.3); Non-African American GFR(CKD) 96.3 (60.0-200.0); Potassium 3.9 mmol/L (3.5-5.5); Total Bilirubin 0.2 mg/dL (0.30-1.20); Total Protein 4.8 g/dL (6.2-8.2)
[2021-05-11 12:15] LABS: Glucose,Whole Blood 148 mg/dL (75-99)
--- NOTE | 2021-05-11 12:34 | P.PN ---
Subjective Progress Note Date: 05/11/21 70-year-old male patient with history of adenocarcinoma of the esophagus diagnosed on 02/03/2021, who has completed radiation therapy, and has received chemotherapy, who came in for a replacement of a malfunctioning Port-A-Cath from the right subclavian area and insertion of a new right-sided subclavian Port-A-Cath by Dr. Cole. Preoperatively patient was noted to be saturating only at 88%, and patient was having increased shortness of breath this morning. He was placed on supplemental oxygen, he is currently on 3 L of oxygen saturating at 94-95%, he is afebrile, blood pressure is stable. His chest x-ray showed right subclavian CVC tip and the expected region of the brachiocephalic vein confluence, cardiomegaly, right paratracheal soft tissue prominence, and no moderate to large right and small left pleural effusions with adjacent atelectasis and/or consolidation. Patient denies any fever or chills, no cough, no phlegm production, no hemoptysis. He does have history of COPD, not normally oxygen dependent, also has history of hypertension, hyperlipidemia, diabetes mellitus, sleep apnea on CPAP, GERD, occasional dysphagia, osteoarthritis. We were asked to see the patient for evaluation of dyspnea, hypoxia. Patient is seen in the face to recovery area following his procedure, he is sitting up on the gurney, breathing fairly comfortably, he is currently on 4 L of oxygen, pulse ox is 95%. His lab work showed a white blood cell count of 14.4, hemoglobin of 11.8, plan to count is 447, electrolytes and renal profile are within normal limits, glucose is 212, his LFTs were within normal limits. 05/10/2021, I'm seeing the patient for a follow-up. The patient remains on oxyg en and the patient is having shortness of breath. Note that a computed tomography scan of the chest was done yesterday and it showed moderate-sized right-sided pleural effusion and a left-sided pleural effusion along with some compressive atelectatic changes in lung bases bilaterally. No cardiomegaly. Small pericardial effusion. There were coronary calcifications. There was also has tendon the distal esophagus and the esophagus was patent. There was abrupt cut off of the distal end of the stent which could represent either tumor progression versus nondilated distal esophagus. There are persistent and large metastatic thoracic lymph nodes as well as abnormal left axillary lymph nodes s imilar to the penis and the previous PET/CT. There is also subcarinal lymph nodes that are difficult to actually visualize adjacent to the esophageal mass. There was another 2.1 x 2.0 stable left adrenal metastatic lesion in the stable 1.4 cm benign-appearing thin-walled cyst in the liver. Based on those findings, I performed a thoracentesis of the right lung at the bedside and a total of 2 L of fluid was removed successfully from the patient. Follow-up chest x-ray showed questionable right apical pneumothorax which is essentially negligible and the patient is feeling much better this point in time. The plan is to consider proceeding with thoracentesis of the left lung with the next 24 hours. The blood work from today shows a hemoglobin of 12.3 with a white second of 13.7. BUN is at 60 with a creatinine of 0.6. The patient is seen today 05/11/2021 in follow-up on the regular medical floor. He is currently sitting up at bedside. Awake and alert in no acute distress. Breathing a bit easier today compared to yesterday. He did undergo a right- sided thoracentesis with approximately 2 L of cloudy yellow fluid removed. Cytology pending. Fluid analysis positive for exudate with an LDH of 892. Total protein 3.3. Glucose 59. He is wearing his home CPAP. He is currently on room air oxygen. Dr. Herman did perform a left-sided thoracentesis today with 650 ML's of fluid removed. Cytology sent as well. White count 9.1. Hemoglobin 10.2. Sodium 137. Potassium 3.9. BUN 15. Creatinine 0.7. Glucose 138. He is currently on clindamycin. Remains on Symbicort and albuterol HFA. Lovenox for DVT prophylaxis. Objective - Vital Signs Vital signs: Vital Signs Temp 98.0 F 05/11/21 04:02 Pulse 91 05/11/21 04:02 Resp 18 05/11/21 04:02 BP 121/73 05/11/21 04:02 Pulse Ox 98 05/11/21 04:02 Intake & Output 05/10/21 05/11/21 05/11/21 18:59 06:59 18:59 Intake Total 800 1200 Balance 800 1200 Weight 134.717 kg Intake: Intake, IV Titration 100 Amount Clindamycin 600 mg In 100 Dextrose 5% in Water 50 ml @ 50 mls/hr IVPB Q8H COUNTS INCLUDE 234 BEDS AT THE [facility] Rx#:[id number] Oral 800 1100 Other: # Voids 4 2 - Exam GENERAL EXAM: Alert, very pleasant, 70-year-old male patient, on room air, comfortable in no apparent distress. HEAD: Normocephalic/atraumatic. EYES: Normal reaction of pupils, equal size. Conjunctiva pink, sclera white. NOSE: Clear with pink turbinates. THROAT: No erythema or exudates. NECK: No masses, no JVD, no thyroid enlargement, no adenopathy. CHEST: No chest wall deformity. Symmetrical expansion. LUNGS: Equal air entry with diminished breath sounds over leftbase CVS: Regular rate and rhythm, normal S1 and S2, no gallops, no murmurs, no rubs ABDOMEN: Soft, nontender. No hepatosplenomegaly, normal bowel sounds, no guarding or rigidity. EXTREMITIES: No clubbing, no edema, no cyanosis, 2+ pulses and upper and lower extremities. MUSCULOSKELETAL: Muscle strength and tone normal. SPINE: No scoliosis or deformity SKIN: No rashes CENTRAL NERVOUS SYSTEM: Alert and oriented -3. No focal deficits, tone is normal in all 4 extremities. PSYCHIATRIC: Alert and oriented -3. Appropriate affect. Intact judgment and insight. - Labs CBC & Chem 7: 05/11/21 06:52 05/11/21 06:52 Labs: Abnormal Lab Results - Last 24 Hours (Table) 05/10/21 05/10/21 05/11/21 Range/Units 17:28 19:55 06:52 RBC 3.63 L (4.40-5.60) X 10*6/uL Hgb 10.2 L (13.0-17.0) g/dL Hct 33.7 L (39.6-50.0) % MCHC 30.3 L (32.0-37.0) g/dL RDW 15.9 H (11.5-14.5) % Immature Gran # 0.09 H (0.00-0.04) X 10*3/uL Lymphocytes # 0.62 L (0.90-5.00) X 10*3/uL Eosinophils # 0.95 H (0.04-0.35) X 10*3/uL Anion Gap (10.00-18.00) mmol/L BUN/Creatinine Ratio (12.00-20.00) Ratio Glucose (70-110) mg/dL POC Glucose (mg/dL) 197 H 140 H (75-99) mg/dL Calcium (8.7-10.3) mg/dL Total Bilirubin (0.30-1.20) mg/dL Total Protein (6.2-8.2) g/dL Albumin (3.8-4.9) g/dL Albumin/Globulin Ratio (1.60-3.17) g/dL 05/11/21 05/11/21 05/11/21 Range/Units 06:52 07:14 12:07 RBC (4.40-5.60) X 10*6/uL Hgb (13.0-17.0) g/dL Hct (39.6-50.0) % MCHC (32.0-37.0) g/dL RDW (11.5-14.5) % Immature Gran # (0.00-0.04) X 10*3/uL Lymphocytes # (0.90-5.00) X 10*3/uL Eosinophils # (0.04-0.35) X 10*3/uL Anion Gap 8.70 L (10.00-18.00) mmol/L BUN/Creatinine Ratio 21.00 H (12.00-20.00) Ratio Glucose 138 H (70-110) mg/dL POC Glucose (mg/dL) 122 H 148 H (75-99) mg/dL Calcium 8.3 L (8.7-10.3) mg/dL Total Bilirubin 0.20 L (0.30-1.20) mg/dL Total Protein 4.8 L (6.2-8.2) g/dL Albumin 2.5 L (3.8-4.9) g/dL Albumin/Globulin Ratio 1.09 L (1.60-3.17) g/dL Microbiology - Last 24 Hours (Table) 05/10/21 11:15 Body Fluid Culture - Preliminary Pleural Fluid 05/10/21 11:15 Fungal Culture - Preliminary Lung - Right 05/10/21 11:15 Acid Fast Bacilli Culture - Preliminary Lung - Right Assessment and Plan Assessment: 1 Acute hypoxic respiratory failure possibly related to bilateral pleural effusion. The exact nature of the pleural effusion is not clear. The patient has some atelectatic changes in lung bases bilaterally. Consider CHF versus mal ignant effusion versus parapneumonic effusions. Right-sided thoracentesis performed on 05/10/2021 with 2 L of exudate fluid removed. Cytology pending. Left-sided thoracentesis performed on 05/11/2021 with 650 mL of turbid yellow fluid removed. Fluid cytology pending. 2 History of metastatic adenocarcinoma of the esophagus, status post radiation and chemotherapy, PET scan on 02/28/2021 showed a distal esophageal neoplasm with abnormal thoracic and bilateral supraclavicular adenopathy, and abnormal left adrenal metastatic lesion 3 Chronic dysphagia 4 Significant weight loss related to dysphagia and esophageal adenocarcinoma 5 History of COPD 6 Diabetes mellitus type 2 7 Hypertension 8 Hyperlipidemia 9 Osteoarthritis 10 Sleep apnea on CPAP 11 Anxiety Plan: The patient was seen and evaluated A left-sided thoracentesis was performed today 650 ML's of turbid yellow fluid removed, cytology pending Right-sided pleural effusion fluid analysis from yesterday revealed exudate, cytology pending He is stable and cleared for discharge from the pulmonary standpoint Follow-up chest x-ray revealed no evidence of pneumothorax Follow-up in our office in 1-2 weeks' time I have personally seen and examined the patient, performed the documentation and the assessment and plan as written. Number of minutes spent on the visit: 10. Residual evaluation that was unremarkable with a nurse practitioner. This evaluation was done and more than 10 minutes. I performed a left-sided thoracentesis on this patient a total of 650 mL of pleural fluid was aspirated from the left lung. No complications. No evidence of any pneumothorax. The patient is not need for any oxygen. The patient was discharged home. Pleural fluid cytology to be followed up on outpatient basis regarding possibility of malignancy.
[2021-05-11 12:35] VITALS: BP 110/68; PULSE 82; TEMP 97.3
--- NOTE | 2021-05-11 12:47 | P.DS ---
Providers Date of admission: 05/11/21 10:24 Expected date of discharge: 05/11/21 Attending physician: Michell Soriano Consults: 05/09/21 10:22 Consult Physician Routine Consulting Provider: Seema Herman Consult Reason/Comments: Hypoxia Do you want consulting provider notified?: Yes Primary care physician: Vincent Fagan [facility] Hospital Course: Discharge diagnosis 1. Shortness of breath with decreased oxygen saturation 2. Known history of esophageal cancer 3. Underlying history of hypertension 4. Underlying history of hyperlipidemia 5. Underlying history of insulin-dependent diabetes mellitus 6. Underlying history of obstructive sleep apnea Hospital course Xiang Pimentel, is a 70-year-old male well practice with a history of esophageal cancer, diagnosed in January 2021, patient received radiation therapy and is receiving chemotherapy. Patient presented to the hospital for a replacement for of a Port-A-Cath by Dr. Cole, after the procedure was completed patient was noticed to have shortness of breath with decreased O2 sat duration to 88% he was started on oxygen supplements, Dr. Herman was consulted to see him in the recovery area and he advised that patient should be admitted to the medical floor for further evaluation and treatment, patient has previous history of pleural effusion and may need thoracentesis. On review of systems patient is alert and oriented 3 he is complaining of shortness of breath and chest pain in the chest that is dull and continue was with episodes of severe sharp pain in the substernal area, he stated that he is receiving [place] but his pain is not well controlled, otherwise he denies any complaints at this time there is no fever or chills no headache or dizziness no cough no nausea or vomiting no abdominal pain no diarrhea no blood in the stools no burning with urination no frequency or urgency and no hematuria. His past medical history is positive for esophageal cancer as above, also history of hypertension, hyperlipidemia, diabetes mellitus, gastroesophageal reflux disease, osteoarthritis, and sleep apnea maintained on CPAP On 05/10/2021 patient was seen and examined on the medical floor he is alert and oriented 3 in no apparent distress there is no fever or chills no headache or dizziness, patient had a temperature of 100 yesterday today temperature is down to 98 there is no chest pain shortness of breath has improved patient has occasional cough no nausea or vomiting no abdominal pain no diarrhea and no urinary symptoms, patient has leukocytosis white blood count was 14,000 yesterday and 13.8 today he received 1 dose of IV clindamycin yesterday prior to surgical intervention for Port-A-Cath placement. Case was discussed with Dr. Herman at this time will obtain blood cultures and cover with IV clindamycin Will monitor CBC closely On 05/11/2021 patient is alert and oriented 3. Patient underwent right-sided thoracentesis yesterday with 3 L removed and underwent left-sided thoracentesis with 650 MLS removed today per pulmonary. Discussed case with pulmonary team. Patient has been cleared for discharge. Patient will be DC'd on clindamycin for 5 more days. White blood cell count has normalized. Patient to follow-up with his oncology team. At this time patient is eager to go home. Patient reports this is the best he's felt in a while. Patient denies chest pain or shortness breath. Patient denies nausea vomiting or diarrhea. Patient denies any urinary burning or frequency. Patient Condition at Discharge: Stable Plan - Discharge Summary New Discharge Prescriptions: New clindamycin HCL [Cleocin] 300 mg PO Q8H 5 Days #15 cap Continue ALPRAZolam [Xanax] 0.25 mg PO TID PRN PRN Reason: Anxiety Metoprolol Succinate (ER) [Toprol XL] 50 mg PO BID Aspirin 325 mg PO DAILY Potassium Chloride [Klor-Con 10 ER] 10 meq PO TID Optive Eye Drops 1 drop BOTH EYES BID Meloxicam [Mobic] 7.5 mg PO DAILY@1700 glipiZIDE [Glucotrol] 5 mg PO BID@0700,1700 Fluticasone/Salmeterol [Advair 100-50 Diskus] 1 puff INHALATION RT-Q12H Fluticasone Nasal [place] [Flonase Nasal [place]] 1 spray EA NOSTRIL BID Ezetimibe [Zetia] 10 mg PO HS metFORMIN HCL [Glucophage] 1,000 mg PO BID Simvastatin [Zocor] 20 mg PO HS Sucralfate 1 gm PO Q6HR OLANZapine [ZyPREXA] 2.5 mg PO HS Omeprazole [PriLOSEC] 20 mg PO BID Albuterol Sulfate [Ventolin HFA] 1 - 2 puff INHALATION RT-Q4H PRN PRN Reason: Shortness Of Breath Chlorhexidine Gluconate [Peridex] 5 ml PO DAILY PRN PRN Reason: gum irritation INSULIN ASPART (NovoLOG) [NovoLOG (formulary)] 0 unit SQ ACHS ml Loratadine-Pseudoeph 10-240 mg [Claritin-D 24 Hour] 1 tab PO DAILY guaiFENesin-Coden 100-10MG/5ML [Robitussin AC] 10 ml PO Q6H Ondansetron [Zofran ODT] 8 mg PO Q12HR PRN PRN Reason: Nausea Dicyclomine [Bentyl] 10 mg PO DAILY Hydrocodone Bitartrate Liquid 15 ml PO Q6HR Lidocaine Cream 1 applicate TOPICAL DIRECTED diphenhydrAMINE [Benadryl] 25 mg PO Q6HR Ibuprofen 200 mg PO Q4HR Compound Solution 1 applicate PO DIRECTED Discharge Medication List ALPRAZolam [Xanax] 0.25 mg PO TID PRN 01/28/16 [History] Aspirin 325 mg PO DAILY 01/28/16 [History] Metoprolol Succinate (ER) [Toprol XL] 50 mg PO BID 01/28/16 [History] Optive Eye Drops 1 drop BOTH EYES BID 01/28/16 [History] Potassium Chloride [Klor-Con 10 ER] 10 meq PO TID 01/28/16 [History] Fluticasone/Salmeterol [Advair 100-50 Diskus] 1 puff INHALATION RT-Q12H 10/01/19 [History] Meloxicam [Mobic] 7.5 mg PO DAILY@1700 10/01/19 [History] glipiZIDE [Glucotrol] 5 mg PO BID@0700,1700 10/01/19 [History] Albuterol Sulfate [Ventolin HFA] 1 - 2 puff INHALATION RT-Q4H PRN 02/01/21 [History] Chlorhexidine Gluconate [Peridex] 5 ml PO DAILY PRN 02/01/21 [History] Ezetimibe [Zetia] 10 mg PO HS 02/01/21 [History] Fluticasone Nasal [place] [Flonase Nasal [place]] 1 spray EA NOSTRIL BID 02/01/21 [History] Omeprazole [PriLOSEC] 20 mg PO BID 02/01/21 [History] Simvastatin [Zocor] 20 mg PO HS 03/01/21 [History] metFORMIN HCL [Glucophage] 1,000 mg PO BID 03/01/21 [History] INSULIN ASPART (NovoLOG) [NovoLOG (formulary)] 0 unit SQ ACHS ml 03/08/21 [Rx] Dicyclomine [Bentyl] 10 mg PO DAILY 04/25/21 [History] Hydrocodone Bitartrate Liquid 15 ml PO Q6HR 04/25/21 [History] Lidocaine Cream 1 applicate TOPICAL DIRECTED 04/25/21 [History] Loratadine-Pseudoeph 10-240 mg [Claritin-D 24 Hour] 1 tab PO DAILY 04/25/21 [History] OLANZapine [ZyPREXA] 2.5 mg PO HS 04/25/21 [History] Ondansetron [Zofran ODT] 8 mg PO Q12HR PRN 04/25/21 [History] Sucralfate 1 gm PO Q6HR 04/25/21 [History] guaiFENesin-Coden 100-10MG/5ML [Robitussin AC] 10 ml PO Q6H 04/25/21 [History] Compound Solution 1 applicate PO DIRECTED 05/06/21 [History] Ibuprofen 200 mg PO Q4HR 05/06/21 [History] diphenhydrAMINE [Benadryl] 25 mg PO Q6HR 05/06/21 [History] clindamycin HCL [Cleocin] 300 mg PO Q8H 5 Days #15 cap 05/11/21 [Rx] Follow up Appointment(s)/Referral(s): Jesse Cole MD [STAFF PHYSICIAN] - 05/17/21 2:15 pm Seema Herman MD [STAFF PHYSICIAN] - 1 Week Vincent Fagan MD [Primary Care Provider] - 1 Week Patient Instructions/Handouts: Implanted Venous Access Port (DC) Discharge Disposition: HOME SELF-CARE
--- NOTE | 2021-05-13 08:59 | CDI ---
Documentation Clarification Form Date: 05/13/21 From: Kristal Mathis Admit Date: 05/11/2021 10:24:00 AM Patient Name: Xiang Pimentel Visit Number: [id number] Discharge Date: 05/11/2021 03:05:00 PM ATTENTION: The Clinical Documentation Specialists (CDI) and [facility] Coding Staff appreciate your assistance in clarifying documentation. Please respond to the clarification below the line at the bottom and electronically sign. The CDI & [facility] Coding staff will review the response and follow-up if needed. Please note: Queries are made part of the Legal Health Record. If you have any questions, please contact the author of this message via ITS. Dr. 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 Coding guidelines do not allow coding professionals to code based on pathology results; therefore, clarification is requested. 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 Type II DM, COPD Clinical Indicators: Acute hypoxic respiratory failure possibly related to right pleural effusion and pneumonia. Treatment: Bilateral thoracentesis Please clarify if you agree with the pathology report diagnosis of metastatic pleural effusion: [ xx ] Yes [ ] No [ ] Other (please specify) [ ] Unable to determine MTDD
== END 2021-05-11 15:05 | disposition home or self-care (01) | DRG 356 ==
LOC: OR 07:17 → 5NMEDONC 13:00 → OBSVTOIN 05-11 10:24
PROVIDERS: ADMIT Internal Medicine; ATTEND Internal Medicine
PROC: 02HV33Z Insertion of Infusion Device into Superior Vena Cava, Percutaneous Approach (ICD-10-PCS; principal; 2021-05-09 08:40)
PROC: 02PY33Z Removal of Infusion Device from Great Vessel, Percutaneous Approach (ICD-10-PCS; principal; 2021-05-09 08:40)
PROC: 0JPT0WZ Removal of Totally Implantable Vascular Access Device from Trunk Subcutaneous Tissue and Fascia, Open Approach (ICD-10-PCS; principal; 2021-05-09 08:40)
PROC: 0JH60WZ Insertion of Totally Implantable Vascular Access Device into Chest Subcutaneous Tissue and Fascia, Open Approach (ICD-10-PCS; principal; 2021-05-09 08:40)
PROC: 0W993ZX Drainage of Right Pleural Cavity, Percutaneous Approach, Diagnostic (ICD-10-PCS; 2021-05-09 08:40)
PROC: 0W9B3ZX Drainage of Left Pleural Cavity, Percutaneous Approach, Diagnostic (ICD-10-PCS; 2021-05-11)
DX: C15.5 Malignant neoplasm of lower third of esophagus (principal); J96.01 Acute respiratory failure with hypoxia; T82.594A Other mechanical complication of infusion catheter, initial encounter; C79.72 Secondary malignant neoplasm of left adrenal gland; J91.0 Malignant pleural effusion; E11.9 Type 2 diabetes mellitus without complications; J44.9 Chronic obstructive pulmonary disease, unspecified; Z79.4 Long term (current) use of insulin; K76.89 Other specified diseases of liver; I10 Essential (primary) hypertension; G47.33 Obstructive sleep apnea (adult) (pediatric); E78.5 Hyperlipidemia, unspecified; R13.10 Dysphagia, unspecified; R59.9 Enlarged lymph nodes, unspecified; K21.9 Gastro-esophageal reflux disease without esophagitis; I25.10 Atherosclerotic heart disease of native coronary artery without angina pectoris; I25.84 Coronary atherosclerosis due to calcified coronary lesion; F41.9 Anxiety disorder, unspecified; M19.90 Unspecified osteoarthritis, unspecified site; Z79.82 Long term (current) use of aspirin; Z79.84 Long term (current) use of oral hypoglycemic drugs; Z79.1 Long term (current) use of non-steroidal anti-inflammatories (NSAID); Z79.51 Long term (current) use of inhaled steroids; Z79.899 Other long term (current) drug therapy; Z96.653 Presence of artificial knee joint, bilateral; Z96.641 Presence of right artificial hip joint; Z96.5 Presence of tooth-root and mandibular implants; Z96.89 Presence of other specified functional implants; Z92.3 Personal history of irradiation; Z87.19 Personal history of other diseases of the digestive system; Z92.21 Personal history of antineoplastic chemotherapy; Z98.890 Other specified postprocedural states; Z88.1 Allergy status to other antibiotic agents; Z88.0 Allergy status to penicillin; Z88.2 Allergy status to sulfonamides; Z88.8 Allergy status to other drugs, medicaments and biological substances; Z80.0 Family history of malignant neoplasm of digestive organs; Z83.2 Family history of diseases of the blood and blood-forming organs and certain disorders involving the immune mechanism
CPT/HCPCS: 71045; 71260; 77001; 80053; 82945; 83615; 83880; 84145; 84157; 85025; 87070; 87102; 87116; 87205; 87206; 87252; 87496; 87498; 87502; 87529; 87634; 87798; 88108; 88305; 88341; 88342; 89050; 94640

== ENCOUNTER 2021-06-15 03:16 | Inpatient (IN) | payer MEDICARE, BC ==
[2021-06-15] MEDS ORDERED: SODIUM CHLORIDE 0.9% 1,000 ML IV STA (03:36)
[2021-06-15] MEDS ORDERED: methylPREDNISolone SOD SUCCI 125 MG/2 ML VIAL IV STA (03:36)
[2021-06-15] MEDS ORDERED: IPRATROPIUM-ALBUTEROL 3 ML NEB INHALATION STA (03:36)
--- NOTE | 2021-06-15 03:36 | ED ---
SOB HPI - General Chief Complaint: Shortness of Breath Stated Complaint: ARELY Time Seen by Provider: 06/15/21 03:35 Source: patient, RN notes reviewed, old records reviewed Mode of arrival: wheelchair Limitations: no limitations - History of Present Illness Initial Comments: This is a 70-year-old male DEL with multifactorial difficulty breathing shortnes s of breath history of esophageal cancer history of right-sided pleural effusion severe persistent shortness of breath cough and congestion with history of COPD. Patient had x-ray a few days ago showing worsening of his effusion and coming in for evaluation of that. Patient symptoms are significantly worsening here in the ER causing him to come the hospital for evaluation. Patient has no fevers is complaining of mild chest pain generalized body pain. MD Complaint: shortness of breath, cough, chest pain, "asthma attack", anxiety -: hour(s) Severity: severe Severity scale (1-10): 10 Quality: dull Consistency: constant Improves With: oxygen, rest Worsens With: movement Known History Of: COPD, asthma Context: recent URI, recent illness Associated Symptoms: chest pain, pain with inspiration, cough, sputum production Treatments Prior to Arrival: none - Related Data Home Medications Medication Instructions Recorded Confirmed ALPRAZolam [Xanax] 0.25 mg PO TID PRN 01/28/16 05/09/21 Aspirin 325 mg PO DAILY 01/28/16 05/09/21 Metoprolol Succinate (ER) [Toprol 50 mg PO BID 01/28/16 05/09/21 XL] Optive Eye Drops 1 drop BOTH EYES BID 01/28/16 05/09/21 Potassium Chloride [Klor-Con 10 ER] 10 meq PO TID 01/28/16 05/09/21 Fluticasone/Salmeterol [Advair 1 puff INHALATION RT-Q12H 10/01/19 05/09/21 100-50 Diskus] Meloxicam [Mobic] 7.5 mg PO DAILY@1700 10/01/19 05/09/21 glipiZIDE [Glucotrol] 5 mg PO BID@0700,1700 10/01/19 05/09/21 Albuterol Sulfate [Ventolin HFA] 1 - 2 puff INHALATION RT-Q4H PRN 02/01/21 05/09/21 Chlorhexidine Gluconate [Peridex] 5 ml PO DAILY PRN 12/28/21 04/04/22 Ezetimibe [Zetia] 10 mg PO HS 02/01/21 05/09/21 Fluticasone Nasal [place] [Flonase 1 spray EA NOSTRIL BID 02/01/21 05/09/21 Nasal [place]] Omeprazole [PriLOSEC] 20 mg PO BID 02/01/21 05/09/21 Simvastatin [Zocor] 20 mg PO HS 03/01/21 05/09/21 metFORMIN HCL [Glucophage] 1,000 mg PO BID 03/01/21 05/09/21 Dicyclomine [Bentyl] 10 mg PO DAILY 04/25/21 05/09/21 Hydrocodone Bitartrate Liquid 15 ml PO Q6HR 04/25/21 05/09/21 Lidocaine Cream 1 applicate TOPICAL DIRECTED 04/25/21 05/09/21 Loratadine-Pseudoeph 10-240 mg 1 tab PO DAILY 04/25/21 05/09/21 [Claritin-D 24 Hour] OLANZapine [ZyPREXA] 2.5 mg PO HS 04/25/21 05/09/21 Ondansetron [Zofran ODT] 8 mg PO Q12HR PRN 04/25/21 05/09/21 Sucralfate 1 gm PO Q6HR 04/25/21 05/09/21 guaiFENesin-Coden 100-10MG/5ML 10 ml PO Q6H 04/25/21 05/09/21 [Robitussin AC] Compound Solution 1 applicate PO DIRECTED 05/06/21 05/09/21 Ibuprofen 200 mg PO Q4HR 05/06/21 05/09/21 diphenhydrAMINE [Benadryl] 25 mg PO Q6HR 05/06/21 05/09/21 Previous Rx's Medication Instructions Recorded INSULIN ASPART (NovoLOG) [NovoLOG 0 unit SQ ACHS ml 03/08/21 (formulary)] clindamycin HCL [Cleocin] 300 mg PO Q8H 5 Days #15 cap 05/11/21 Allergies Allergy/AdvReac Type Severity Reaction Status Date / Time cefazolin [From Kefzol] Allergy Rash/Hives Verified 06/15/21 03:26 enalaprilat [From Vasotec] Allergy Cough,rash Verified 06/15/21 03:26 Penicillins Allergy Rash/Hives Verified 06/15/21 03:26 prochlorperazine Allergy facial Verified 06/15/21 03:26 [From Compazine] twitching, loss of sensation of mouth Sulfa (Sulfonamide Allergy Rash/Hives Verified 06/15/21 03:26 Antibiotics) Review of Systems ROS Statement: Those systems with pertinent positive or pertinent negative responses have been documented in the HPI. ROS Other: All systems not noted in ROS Statement are negative. Past Medical History Past Medical History: Asthma, Cancer, COPD, Diabetes Mellitus, GERD/Reflux, Hyperlipidemia, Hypertension, Osteoarthritis (OA), Sleep Apnea/CPAP/BIPAP Additional Past Medical History / Comment(s): uses CPAP, occ. 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) History of Any Multi-Drug Resistant Organisms: None Reported Past Surgical History: Hernia Repair, Joint Replacement, Orthopedic Surgery Additional Past Surgical History / Comment(s): cystoscopy, both knees replaced, multiple arthroscopies knees, colonoscopies, dental implant, right hip replaced, stent in esophabus 02/03/21, port rt side inserted 03/2021, esophageal stent placed and port inserted 04/26/21 Past Anesthesia/Blood Transfusion Reactions: Previous Problems w/ Anesthesia, Family History of Problems w/ Anesthesia, Motion Sickness Additional Past Anesthesia/Blood Transfusion Reaction / Comment(s): very combative when waking up from general anesthesia, anxious & agitated w/IV sedation,. mother ponv Past Psychological History: Anxiety Smoking Status: Never smoker Past Alcohol Use History: None Reported Past Drug Use History: None Reported - Past Family History Father Brother(s) Family Medical History: Cancer, Deep Vein Thrombosis (DVT) Additional Family Medical History / Comment(s): colon cancer Mother Family Medical History: Cancer Additional Family Medical History / Comment(s): . Father Family Medical History: Cancer Brother(s) Family Medical History: Cancer Sister(s) Family Medical History: Cancer General Exam General appearance: alert, in no apparent distress, anxious Head exam: Present: atraumatic, normocephalic, normal inspection Eye exam: Present: normal appearance, PERRL, EOMI. Absent: scleral icterus, conjunctival injection, periorbital swelling ENT exam: Present: normal exam, mucous membranes moist Neck exam: Present: normal inspection. Absent: tenderness, meningismus, lymphadenopathy Respiratory exam: Present: respiratory distress, wheezes, accessory muscle use, decreased breath sounds (Minimal no breath sounds on the right), prolonged expiratory. Absent: rales, rhonchi, stridor Cardiovascular Exam: Present: regular rate, normal rhythm, normal heart sounds. Absent: systolic murmur, diastolic murmur, rubs, gallop, clicks GI/Abdominal exam: Present: soft, normal bowel sounds. Absent: distended, tenderness, guarding, rebound, rigid Extremities exam: Present: normal inspection, full ROM, normal capillary refill. Absent: tenderness, pedal edema, joint swelling, calf tenderness Back exam: Present: normal inspection Neurological exam: Present: alert, oriented X3, CN II-XII intact Psychiatric exam: Present: normal affect, normal mood Skin exam: Present: warm, dry, intact, normal color. Absent: rash Course Vital Signs 06/15/21 06/15/21 03:21 03:34 Temperature 97.8 F Pulse Rate 98 Respiratory 18 28 H Rate Blood Pressure 128/83 O2 Sat by Pulse 96 Oximetry - Reevaluation(s) Reevaluation #1: 06/15/21 03:42 Medical record is reviewed Reevaluation #2: 06/15/21 04:41 Patient informed results and questions answered Reevaluation #3: 06/15/21 04:42 Patient is resting mildly comfortable with pain control and supplemental O2 - Consultations Consultation #1: Spoke with Dr. Soriano who agrees to admit this patient Medical Decision Making - Medical Decision Making 70 male to the emergency department for evaluation of shortness of breath with significant right-sided pleural effusion patient presents today for evaluation of severe shortness of breath recurrent pleural effusion which she has had in the past secondary to esophageal cancer. Patient also has COPD. On oxygen patient is maintaining normal pulse ox and [place] for continued evaluation management - Lab Data Result diagrams: 06/15/21 04:02 06/15/21 04:02 Lab Results 06/15/21 06/15/21 06/15/21 Range/Units 04:02 04:02 04:02 WBC 3.7 L (3.8-10.6) k/uL RBC 4.20 L (4.30-5.90) m/uL Hgb 11.3 L (13.0-17.5) gm/dL Hct 38.4 L (39.0-53.0) % MCV 91.5 (80.0-100.0) fL MCH 26.9 (25.0-35.0) pg MCHC 29.4 L (31.0-37.0) g/dL RDW 17.4 H (11.5-15.5) % Plt Count 319 (150-450) k/uL MPV 7.1 Hypochromasia Moderate Anisocytosis Slight PT 11.0 (9.0-12.0) sec INR 1.0 (<1.2) APTT 20.5 L (22.0-30.0) sec Sodium 138 (137-145) mmol/L Potassium 4.0 (3.5-5.1) mmol/L Chloride 105 (98-107) mmol/L Carbon Dioxide 28 (22-30) mmol/L Anion Gap 5 mmol/L BUN 18 (9-20) mg/dL Creatinine 0.72 (0.66-1.25) mg/dL Est GFR (CKD-EPI)AfAm >90 (>60 ml/min/1.73 sqM) Est GFR (CKD-EPI)NonAf >90 (>60 ml/min/1.73 sqM) Glucose 107 H (74-99) mg/dL Calcium 8.5 (8.4-10.2) mg/dL Magnesium 1.9 (1.6-2.3) mg/dL Total Bilirubin 0.6 (0.2-1.3) mg/dL AST 23 (17-59) U/L ALT 8 (4-49) U/L Alkaline Phosphatase 152 H (38-126) U/L Total Protein 5.6 L (6.3-8.2) g/dL Albumin 2.6 L (3.5-5.0) g/dL - EKG Data -: EKG Interpreted by Me (EKG sinus of 95. 137 QRS 86 QTc 400) - Radiology Data Radiology results: report reviewed (Chest x-ray shows significant right-sided pleural effusion), image reviewed Disposition Clinical Impression: Acute respiratory failure with hypoxia, Esophageal cancer, COPD (chronic obstructive pulmonary disease), Recurrent right pleural effusion Disposition: ADMITTED IP TO THIS HOSP Condition: Fair Is patient prescribed a controlled substance at d/c from ED?: No Referrals: Michell Soriano MD [Primary Care Provider] - 1-2 days
--- NOTE | 2021-06-15 04:06 | XR ---
EXAMINATION TYPE: XR chest 1V portable DATE OF EXAM: 06/15/2021 COMPARISON: 06/01/2021 HISTORY: Pleural effusion TECHNIQUE: Single view FINDINGS: There is large right pleural effusion. There is small left pleural effusion. There is mild pulmonary congestion. Heart is probably enlarged. There is right-sided central venous catheter noted in the superior vein cava. IMPRESSION: Pleural effusions and pulmonary congestion increased compared to last exam. Congestive he art failure is probably present.
[2021-06-15] MEDS ORDERED: HYDROmorphone 1 MG/ML 1 ML SYRINGE IVP STA (04:09)
[2021-06-15 04:11] LABS: Anisocytosis Slight; HCT 38.4 % (39.0-53.0); HGB 11.3 gm/dL (13.0-17.5); Hypochromasia Moderate; MCH 26.9 pg (25.0-35.0); MCHC 29.4 g/dL (31.0-37.0); MCV 91.5 fL (80.0-100.0); Mean Platelet Volume 7.1; Platelet Count 319 k/uL (150-450); RDW 17.4 % (11.5-15.5); WBC 3.7 k/uL (3.8-10.6)
[2021-06-15 04:29] LABS: ALT 8 U/L (4-49); AST 23 U/L (17-59); African American GFR (CKD) >90 (>60 ml/min/1.73 sqM); Albumin 2.6 g/dL (3.5-5.0); Alkaline Phosphatase 152 U/L (38-126); Anion Gap 5 mmol/L; Blood Urea Nitrogen 18 mg/dL (9-20); Calcium 8.5 mg/dL (8.4-10.2); Carbon Dioxide 28 mmol/L (22-30); Chloride 105 mmol/L (98-107); Glucose 107 mg/dL (74-99); Magnesium 1.9 mg/dL (1.6-2.3); Non-African American GFR(CKD) >90 (>60 ml/min/1.73 sqM); Sodium 138 mmol/L (137-145); Total Bilirubin 0.6 mg/dL (0.2-1.3); Total Protein 5.6 g/dL (6.3-8.2)
[2021-06-15 04:38] LABS: Partial Thromboplastin Time 20.5 sec (22.0-30.0)
[2021-06-15] MEDS ORDERED: NALOXONE 0.4 MG/ML 1 ML VIAL IV PRN (04:38)
[2021-06-15] MEDS ORDERED: ONDANSETRON 4 MG/2 ML VIAL IVP STA (05:20)
[2021-06-15 05:22] LABS: Band Neutrophils % 5 %; Eosinophils # (M) 0.11 k/uL (0-0.7); Lymphocytes # (M) 0.85 k/uL (1.0-4.8); Neutrophils % (M) 61 %; Nucleated Red Blood Cells 0 /100 WBC (0-0); Total Cells Counted 100
[2021-06-15 05:24] LABS: Poikilocytosis (M) Present
[2021-06-15 05:28] LABS: Polychromasia Present
[2021-06-15] MEDS: IPRATROPIUM-ALBUTEROL 3 ML NEB INHALATION SCH ×4 (08:41→20:05)
[2021-06-15] MEDS ORDERED: ONDANSETRON ODT 4 MG TAB PO PRN (09:24)
[2021-06-15] MEDS ORDERED: ALBUTEROL NEBULIZED 2.5 MG/3 ML INHALATION PRN (09:24)
[2021-06-15] MEDS ORDERED: MESALAMINE 1,000 MG SUPP RECTAL PRN (09:24)
--- NOTE | 2021-06-15 09:27 | P.CNPUL ---
History of Present Illness Consult date: 06/15/21 Requesting physician: Michell Soriano Reason for consult: dyspnea, hypoxemia, pleural effusion, abnormal CXR/CT Chief complaint: Shortness of breath. History of present illness: Pulmonary consult dated 06/15/2021. This is a 70-year-old male with a history of esophageal cancer. About a month ago, the patient was hospitalized with bilateral pleural effusions. He had a thoracentesis performed on both sides, and the cytology on the right-sided effusion, with positive for cancer cells, consistent with his primary esophageal cancer. The patient is readmitted to the hospital because of shortness of breath. He seen in the emergency room on June 15. In my opinion, the patient is best served by having a Pleurx catheter placed. The patient has a history of COPD, esophageal cancer, diabetes, GERD, hyperlipidemia, hypertension, osteoarthritis, and sleep apnea. He does use CPAP for his sleep apnea syndrome. White count 3.7, hemoglobin 11.3, hematocrit 38.4, and platelet count 319,000. Sodium, potassium, chloride, CO2, BUN, and creatinine are all normal and glucose is 107. Albumin 2.6. Chest x-ray shows bilateral right and left effusions. Cardiothoracic surgery was consulted for placement of a Pleurx catheter. Review of Systems REVIEW OF SYSTEMS: CONSTITUTIONAL: [Negative.] NEUROLOGIC: [ Negative.] HEENT: [ Negative.] CARDIAC: [Negative.] PULMONARY: Progressive shortness of breath. GI: [Negative.] : [Negative.] RHEUMATOLOGIC: [ Negative.] IMMUNOLOGIC: [ Negative.] ENDOCRINE: [Negative. ] DERMATOLOGIC: [Negative.] Past Medical History Past Medical History: Asthma, Cancer, COPD, Diabetes Mellitus, GERD/Reflux, Hyperlipidemia, Hypertension, Osteoarthritis (OA), Sleep Apnea/CPAP/BIPAP Additional Past Medical History / Comment(s): uses CPAP, occ. 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) History of Any Multi-Drug Resistant Organisms: None Reported Past Surgical History: Hernia Repair, Joint Replacement, Orthopedic Surgery Additional Past Surgical History / Comment(s): cystoscopy, both knees replaced, multiple arthroscopies knees, colonoscopies, dental implant, right hip replaced, stent in esophabus 02/03/21, port rt side inserted 03/2021, esophageal stent placed and port inserted 04/26/21 Past Anesthesia/Blood Transfusion Reactions: Previous Problems w/ Anesthesia, Family History of Problems w/ Anesthesia, Motion Sickness Additional Past Anesthesia/Blood Transfusion Reaction / Comment(s): very combative when waking up from general anesthesia, anxious & agitated w/IV sedation,. mother ponv Past Psychological History: Anxiety Smoking Status: Never smoker Past Alcohol Use History: None Reported Past Drug Use History: None Reported - Past Family History Father Brother(s) Family Medical History: Cancer, Deep Vein Thrombosis (DVT) Additional Family Medical History / Comment(s): colon cancer Mother Family Medical History: Cancer Additional Family Medical History / Comment(s): . Father Family Medical History: Cancer Brother(s) Family Medical History: Cancer Sister(s) Family Medical History: Cancer Medications and Allergies Home Medications Medication Instructions Recorded Confirmed Type ALPRAZolam [Xanax] 0.25 mg PO TID@0600,1200,1800 01/28/16 06/15/21 History Optive Eye Drops 1 drop BOTH EYES BID@0600,1800 01/28/16 06/15/21 History Fluticasone/Salmeterol [Advair 1 puff INHALATION RT-BID@0600,1800 10/01/19 06/15/21 History 100-50 Diskus] Meloxicam [Mobic] 7.5 mg PO DAILY@1800 10/01/19 06/15/21 History glipiZIDE [Glucotrol] 5 mg PO BID@0600,1800 10/01/19 06/15/21 History Albuterol Sulfate [Ventolin HFA] 2 puff INHALATION RT-Q4H PRN 02/01/21 06/15/21 History Ezetimibe [Zetia] 10 mg PO HS@2200 02/01/21 06/15/21 History Fluticasone Nasal [place] [Flonase 1 spray EA NOSTRIL BID@0600,1800 02/01/21 06/15/21 History Nasal [place]] Omeprazole [PriLOSEC] 20 mg PO BID@0600,1800 02/01/21 06/15/21 History Simvastatin [Zocor] 20 mg PO HS@2200 01/25/22 05/11/22 History Dicyclomine [Bentyl] 10 mg PO DAILY@0800 04/25/21 06/15/21 History Ondansetron [Zofran ODT] 8 mg PO Q12HR PRN 04/25/21 06/15/21 History Sucralfate 1 gm PO Q6H 04/25/21 06/15/21 History guaiFENesin-Coden 100-10MG/5ML 10 ml PO Q6H 04/25/21 06/15/21 History [Robitussin AC] Ibuprofen 200 mg PO Q4H 05/06/21 06/15/21 History diphenhydrAMINE [Benadryl] 25 mg PO Q6H 05/06/21 06/15/21 History Chemo Infusion (Unknown) 1 dose IV Q14D 06/15/21 06/15/21 History HYDROcodone/APAP [[place] Elixir 15 ml PO Q6H 06/15/21 06/15/21 History 7.5-325Mg/15Ml] INSULIN ASPART (NovoLOG) [NovoLOG See Protocol SQ ACHS 06/15/21 06/15/21 History (formulary)] Kools Solution 5 ml PO Q4H 06/15/21 06/15/21 History Lidocaine-Prilocaine Cream [Emla 1 applic TOPICAL DIRECTED 06/15/21 06/15/21 History Cream 2.5%/2.5%] Loratadine 10 mg PO DAILY@0600 06/15/21 06/15/21 History Mesalamine [Canasa] 1,000 mg RECTAL HS PRN 06/15/21 06/15/21 History Metoprolol Succinate (ER) [Toprol 50 mg PO BID@0600,1800 06/15/21 06/15/21 History Xl] OLANZapine [ZyPREXA] 5 mg PO DAILY@199906/15/21 06/15/21 History Pembrolizumab [Keytruda] 1 dose IV Q21D 06/15/21 06/15/21 History fentaNYL 25MCG/HR PATCH [Duragesic 1 patch TRANSDERM Q3D@0800 06/15/21 06/15/21 History 25MCG/HR] Allergies Allergy/AdvReac Type Severity Reaction Status Date / Time cefazolin [From Kefzol] Allergy Rash/Hives Verified 06/15/21 06:52 Penicillins Allergy Rash/Hives Verified 06/15/21 06:52 Sulfa (Sulfonamide Allergy Rash/Hives Verified 06/15/21 06:52 Antibiotics) enalaprilat [From Vasotec] AdvReac Cough Verified 06/15/21 06:52 prochlorperazine AdvReac facial Verified 06/15/21 06:52 [From Compazine] twitching, loss of sensation of mouth Physical Exam Osteopathic Statement: *. No significant issues noted on an osteopathic structural exam other than those noted in the History and Physical/Consult. Vitals: Vital Signs Temp Pulse Resp BP Pulse Ox 06/15/21 08:55 102 H 06/15/21 08:41 101 H 06/15/21 07:07 101 H 24 129/63 95 06/15/21 05:47 88 06/15/21 05:23 88 06/15/21 04:50 87 32 H 116/84 98 06/15/21 03:34 28 H 06/15/21 03:21 97.8 F 98 18 128/83 96 Intake and Output 06/14/21 06/15/21 06/15/21 22:59 06:59 14:59 Other: Weight 129.727 kg No acute distress, oriented 3. 2 L nasal cannula saturation is 95%. HEENT examination is grossly unremarkable. Neck supple. Full range of motion. No adenopathy thyromegaly or neck vein distention. Cardiovascular examination reveals regular rhythm rate. S1-S2 normal. No S3 or S4. No discernible murmur noted. Heart sounds are distant. Heart rate 100 bpm. Lungs reveal severely diminished breath sounds at both bases, right greater than left. There is dullness at the right base. No wheezes. No rhonchi. No crackles. Abdomen soft bowel sounds are heard. No masses or tenderness. Extremities are intact. No cyanosis clubbing or edema. Skin is without rash or lesion. Neurologic examination is brief but nonfocal. Results - Laboratory Findings CBC and BMP: 06/15/21 04:02 06/15/21 04:02 PT/INR, D-dimer PT 11.0 sec (9.0-12.0) 06/15/21 04:02 INR 1.0 (<1.2) 06/15/21 04:02 Abnormal lab findings: Abnormal Labs 06/15/21 06/15/21 06/15/21 04:02 04:02 04:02 WBC 3.7 L RBC 4.20 L Hgb 11.3 L Hct 38.4 L MCHC 29.4 L RDW 17.4 H Lymphocytes # (Manual) 0.85 L APTT 20.5 L Glucose 107 H Alkaline Phosphatase 152 H Total Protein 5.6 L Albumin 2.6 L - Diagnostic Findings Chest x-ray: image reviewed Assessment and Plan Assessment: Shortness of breath, with hypoxemic respiratory failure, secondary to bilateral pleural effusions, right greater than left. Metastatic esophageal cancer, with positive pleural fluid cytology. History of COPD. History of GERD. History of hypertension. History of hyperlipidemia. Diabetes mellitus. History of sleep apnea, currently maintained on CPAP. Status post esophageal stent, April 2021. Plan: Plan dated 06/15/2021. The patient will be seen by cardiothoracic surgery, for consideration of pl acement of a Pleurx catheter. Given the fact, the patient was just here a month ago, and had bilateral thoracentesis, this will be the best option for my opinion. We'll continue to follow make recommendations where appropriate. Labs, x-rays, and medications are all reviewed. Prognosis is certainly guarded. Time with Patient: Greater than 30
[2021-06-15] MEDS ORDERED: guaiFENesin-Coden 100-10MG/5ML 10 ML CUP PO SCH (09:30)
[2021-06-15] MEDS ORDERED: NON FORMULARY DRUG (Pembrolizumab [Keytruda] 100 MG/4 ML Each) IV SCH (09:30)
[2021-06-15] MEDS ORDERED: [UNRECOGNIZED DRUG - OTHER] PO SCH (09:30)
[2021-06-15] MEDS: HYDROmorphone 1 MG/ML 1 ML SYRINGE IVP PRN (09:43)
--- NOTE | 2021-06-15 10:39 | P.GSCN ---
History of Present Illness Consult date: 06/15/21 Reason for Consult: Pleurx catheter placement Requesting physician: Fito Ling History of present illness: This is a 70-year-old gentleman who follows on an outpatient basis with Dr. Fagan for primary care, Dr. Umaña for oncology, and Dr. Hemran for pulmonology. He has a previous medical history of esophageal cancer, hypertension, hyperlipidemia, obstructive sleep apnea with use, GERD, diabetes, never smoker, rare EtOH use, and significant family history of colon cancer. He is known to our service as we saw him back in February for several week history of difficulty swallowing along with significant weight loss. He had undergone EGD 02/03/2021 with pathology consistent with proximal and distal invasive poorly differentiated adenocarcinoma of the esophagus. Further, PET scan was completed confirming a distal esophageal neoplasm with abnormal thoracic and bilateral supraclavicular adenopathy, as well as abnormal left adrenal suspected metastatic lesion. He presented to the emergency room in February at the request of his oncologist for continued and progressive nausea and vomiting with dehydration along with difficulty in swallowing. At that time he had been seen by Dr. Yarbrough and was given the option of PEG tube placement for nutrition versus esophageal stent. The option was left to the patient. He was discharged and continued to follow up with Dr. Umaña for his cancer, and received an es ophageal stent by Dr. Alysha Sheehan 03/04/2021. Approximately 1 month ago he was hospitalized for bilateral pleural effusions. Both lungs received thoracentesis, cytology on the right side effusion was consistent with primary esophageal cancer. He returned to the ER today with complaints of significant progressive shortness of breath. Chest x-ray demonstrated recurrence of large right-sided pleural effusion. Due to these findings consultation was placed to cardiothoracic surgery for placement of Pleurx catheter Review of Systems Review of systems completed and negative except as noted - Cardiovascular Reports shortness of breath - Respiratory Reports dyspnea Past Medical History Past Medical History: Asthma, Cancer, COPD, Diabetes Mellitus, GERD/Reflux, Hyperlipidemia, Hypertension, Osteoarthritis (OA), Sleep Apnea/CPAP/BIPAP Additional Past Medical History / Comment(s): uses CPAP, occ. 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) History of Any Multi-Drug Resistant Organisms: None Reported Past Surgical History: Hernia Repair, Joint Replacement, Orthopedic Surgery Additional Past Surgical History / Comment(s): cystoscopy, both knees replaced, multiple arthroscopies knees, colonoscopies, dental implant, right hip replaced, stent in esophabus 02/03/21, port rt side inserted 03/2021, esophageal stent placed and port inserted 04/26/21 Past Anesthesia/Blood Transfusion Reactions: Previous Problems w/ Anesthesia, Family History of Problems w/ Anesthesia, Motion Sickness Additional Past Anesthesia/Blood Transfusion Reaction / Comm: very combative when waking up from general anesthesia, anxious & agitated w/IV sedation,. mother ponv Past Psychological History: Anxiety Smoking Status: Never smoker Past Alcohol Use History: None Reported Past Drug Use History: None Reported - Past Family History Father Brother(s) Family Medical History: Cancer, Deep Vein Thrombosis (DVT) Additional Family Medical History / Comment(s): colon cancer Mother Family Medical History: Cancer Additional Family Medical History / Comment(s): . Father Family Medical History: Cancer Brother(s) Family Medical History: Cancer Sister(s) Family Medical History: Cancer Medications and Allergies Home Medications Medication Instructions Recorded Confirmed Type ALPRAZolam [Xanax] 0.25 mg PO TID@0600,1200,1800 01/28/16 06/15/21 History Optive Eye Drops 1 drop BOTH EYES BID@0600,1800 01/28/16 06/15/21 History Fluticasone/Salmeterol [Advair 1 puff INHALATION RT-BID@0600,1800 10/01/19 06/15/21 History 100-50 Diskus] Meloxicam [Mobic] 7.5 mg PO DAILY@179910/01/19 06/15/21 History glipiZIDE [Glucotrol] 5 mg PO BID@0600,1800 10/01/19 06/15/21 History Albuterol Sulfate [Ventolin HFA] 2 puff INHALATION RT-Q4H PRN 02/01/21 06/15/21 History Ezetimibe [Zetia] 10 mg PO HS@2200 02/01/21 06/15/21 History Fluticasone Nasal [place] [Flonase 1 spray EA NOSTRIL BID@0600,1800 02/01/21 06/15/21 History Nasal [place]] Omeprazole [PriLOSEC] 20 mg PO BID@0600,1800 02/01/21 06/15/21 History Simvastatin [Zocor] 20 mg PO HS@2200 03/01/21 06/15/21 History Dicyclomine [Bentyl] 10 mg PO DAILY@0800 04/25/21 06/15/21 History Ondansetron [Zofran ODT] 8 mg PO Q12HR PRN 04/25/21 06/15/21 History Sucralfate 1 gm PO Q6H 04/25/21 06/15/21 History guaiFENesin-Coden 100-10MG/5ML 10 ml PO Q6H 04/25/21 06/15/21 History [Robitussin AC] Ibuprofen 200 mg PO Q4H 05/06/21 06/15/21 History diphenhydrAMINE [Benadryl] 25 mg PO Q6H 05/06/21 06/15/21 History Chemo Infusion (Unknown) 1 dose IV Q14D 06/15/21 06/15/21 History HYDROcodone/APAP [[place] Elixir 15 ml PO Q6H 06/15/21 06/15/21 History 7.5-325Mg/15Ml] INSULIN ASPART (NovoLOG) [NovoLOG See Protocol SQ ACHS 06/15/21 06/15/21 History (formulary)] Kools Solution 5 ml PO Q4H 06/15/21 06/15/21 History Lidocaine-Prilocaine Cream [Emla 1 applic TOPICAL DIRECTED 06/15/21 06/15/21 History Cream 2.5%/2.5%] Loratadine 10 mg PO DAILY@0600 06/15/21 06/15/21 History Mesalamine [Canasa] 1,000 mg RECTAL HS PRN 06/15/21 06/15/21 History Metoprolol Succinate (ER) [Toprol 50 mg PO BID@0600,1800 06/15/21 06/15/21 History Xl] OLANZapine [ZyPREXA] 5 mg PO DAILY@2000 06/15/21 06/15/21 History Pembrolizumab [Keytruda] 1 dose IV Q21D 06/15/21 06/15/21 History fentaNYL 25MCG/HR PATCH [Duragesic 1 patch TRANSDERM Q3D@0800 06/15/21 06/15/21 History 25MCG/HR] Allergies Allergy/AdvReac Type Severity Reaction Status Date / Time cefazolin [From Kefzol] Allergy Rash/Hives Verified 06/15/21 06:52 Penicillins Allergy Rash/Hives Verified 06/15/21 06:52 Sulfa (Sulfonamide Allergy Rash/Hives Verified 06/15/21 06:52 Antibiotics) enalaprilat [From Vasotec] AdvReac Cough Verified 06/15/21 06:52 prochlorperazine AdvReac facial Verified 06/15/21 06:52 [From Compazine] twitching, loss of sensation of mouth Surgical - Exam Vital Signs Temp Pulse Resp BP Pulse Ox 97.8 F 98 18 128/83 96 06/15/21 03:21 06/15/21 03:21 06/15/21 03:21 06/15/21 03:21 06/15/21 03:21 CONSTITUTIONAL: Awake and alert, appears comfortable although slightly short of breath, cooperative, well-developed, well-nourished, no pain, no acute distress EYES: Pupils equal, round, reactive to light, normal ocular movement ENT: Moist mucous membranes without oral lesions present NECK: No masses, no bruits, trachea midline RESPIRATORY: Lungs sounds diminished on the right. Respirations even, slightly labored. Currently on 2 L nasal cannula with oxygen saturation 95%. Strong cough. CARDIOVASCULAR: S1, S2 present. Tachycardia but regular rate and rhythm, sinus tach on telemetry. Palpable peripheral pulses bilaterally. Trace bilateral lower extremity edema present. No calf pain or tenderness noted. GASTROINTESTINAL: Abdomen soft, nontender, nondistended without masses or organomegaly noted. There is no rebound or guarding present. Active bowel sounds present 4 quadrants. GENITOURINARY: Deferred INTEGUMENTARY: Skin is warm and dry with evidence of good perfusion. NEUROLOGIC: Cranial nerves II through XII intact, normal coordination, no obvious motor or sensory deficits, speech is normal MUSKULOSKELETAL: Able to move all extremities, strength equal bilaterally, normal posture PSYCHIATRIC: Alert and oriented to person place and time, appropriate affect, intact judgment and insight Results - Labs 06/15/21 04:02 06/15/21 04:02 Abnormal Lab Results - Last 24 Hours (Table) 06/15/21 06/15/21 06/15/21 Range/Units 04:02 04:02 04:02 WBC 3.7 L (3.8-10.6) k/uL RBC 4.20 L (4.30-5.90) m/uL Hgb 11.3 L (13.0-17.5) gm/dL Hct 38.4 L (39.0-53.0) % MCHC 29.4 L (31.0-37.0) g/dL RDW 17.4 H (11.5-15.5) % Lymphocytes # (Manual) 0.85 L (1.0-4.8) k/uL APTT 20.5 L (22.0-30.0) sec Glucose 107 H (74-99) mg/dL Alkaline Phosphatase 152 H (38-126) U/L Total Protein 5.6 L (6.3-8.2) g/dL Albumin 2.6 L (3.5-5.0) g/dL Diabetes panel 06/15/21 Range/Units 04:02 Sodium 138 (137-145) mmol/L Potassium 4.0 (3.5-5.1) mmol/L Chloride 105 (98-107) mmol/L Carbon Dioxide 28 (22-30) mmol/L BUN 18 (9-20) mg/dL Creatinine 0.72 (0.66-1.25) mg/dL Glucose 107 H (74-99) mg/dL Calcium 8.5 (8.4-10.2) mg/dL AST 23 (17-59) U/L ALT 8 (4-49) U/L Alkaline Phosphatase 152 H (38-126) U/L Total Protein 5.6 L (6.3-8.2) g/dL Albumin 2.6 L (3.5-5.0) g/dL Calcium panel 06/15/21 Range/Units 04:02 Calcium 8.5 (8.4-10.2) mg/dL Albumin 2.6 L (3.5-5.0) g/dL Pituitary panel 06/15/21 Range/Units 04:02 Sodium 138 (137-145) mmol/L Potassium 4.0 (3.5-5.1) mmol/L Chloride 105 (98-107) mmol/L Carbon Dioxide 28 (22-30) mmol/L BUN 18 (9-20) mg/dL Creatinine 0.72 (0.66-1.25) mg/dL Glucose 107 H (74-99) mg/dL Calcium 8.5 (8.4-10.2) mg/dL Adrenal panel 06/15/21 Range/Units 04:02 Sodium 138 (137-145) mmol/L Potassium 4.0 (3.5-5.1) mmol/L Chloride 105 (98-107) mmol/L Carbon Dioxide 28 (22-30) mmol/L BUN 18 (9-20) mg/dL Creatinine 0.72 (0.66-1.25) mg/dL Glucose 107 H (74-99) mg/dL Calcium 8.5 (8.4-10.2) mg/dL Total Bilirubin 0.6 (0.2-1.3) mg/dL AST 23 (17-59) U/L ALT 8 (4-49) U/L Alkaline Phosphatase 152 H (38-126) U/L Total Protein 5.6 L (6.3-8.2) g/dL Albumin 2.6 L (3.5-5.0) g/dL - Imaging Chest x-ray: report reviewed, image reviewed Assessment and Plan Assessment: 1. Recurrent malignant bilateral pleural effusions, right greater than left 2. Progressive shortness of breath secondary to above 3. History of metastatic esophageal cancer, receiving radiation therapy, status post esophageal stent placed 03/01/[address] Cesar Sheehan 4. History of hypertension 5. History of hyperlipidemia 6. Obstructive sleep apnea with use 7. GERD 8. Diabetes 9. Never smoker Plan: The patient was seen and examined at the bedside in the emergency room with Dr. Yarbrough. Chart/diagnostics were reviewed. Discussed placement of right-sided Pleurx catheter, risks and benefits were reviewed, all questions were answered. The patient is agreeable. Our plan is for right-sided Pleurx catheter placement tomorrow 06/16/[address] Yarbrough. The patient will be nothing by mouth after midnight. Medical management of other comorbidities per primary care, oncology, pulmonology. Thank you Dr. Ling for this consult, we look forward to working with you in the care of your patient. I have personally seen and examined the patient, performed the documentation and the assessment and plan as written. Number of minutes spent on the visit: 30. Pilar Sauceda NP-C
--- NOTE | 2021-06-15 11:16 | P.HPIM ---
History of Present Illness H&P Date: 06/15/21 Chief Complaint: shortness of breath This is a 70-year-old male patient who presented with increased shortness of breath that have been progressively increasing over the past few days. Patient has a known past medical history of esophageal cancer with malignant pleural effusions. Patient recently underwent thoracentesis on both sides in which findings were consistent with cancer cells with primary esophageal cancer. Patient has been following with oncology services in which he is maintained on chemo regime. Patient does have chest wall port in place. Additional medical history includes asthma, cancer, COPD, diabetes mellitus, GERD, hyperlipidemia, hypertension, sleep apnea and anxiety. Chest x-ray was completed showing pleural effusions and pulmonary congestion increased compared to last exam congestive heart failure is probably present. At this time pulmonary, oncology and cardiothoracic surgery has also been consulted plans for Pleurx catheter placement due to recurrent pleural effusions. Current vital signs heart rate 105, respiratory rate 22, blood pressure 132/65 with a pulse ox of 96% on 3 L. Review of Systems Please refer to HPI otherwise unremarkable Past Medical History Past Medical History: Asthma, Cancer, COPD, Diabetes Mellitus, GERD/Reflux, Hyperlipidemia, Hypertension, Osteoarthritis (OA), Sleep Apnea/CPAP/BIPAP Additional Past Medical History / Comment(s): uses CPAP, occ. 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) History of Any Multi-Drug Resistant Organisms: None Reported Past Surgical History: Hernia Repair, Joint Replacement, Orthopedic Surgery Additional Past Surgical History / Comment(s): cystoscopy, both knees replaced, multiple arthroscopies knees, colonoscopies, dental implant, right hip replaced, stent in esophabus 02/03/21, port rt side inserted 03/2021, esophageal stent placed and port inserted 04/26/21 Past Anesthesia/Blood Transfusion Reactions: Previous Problems w/ Anesthesia, Family History of Problems w/ Anesthesia, Motion Sickness Additional Past Anesthesia/Blood Transfusion Reaction / Comment(s): very combative when waking up from general anesthesia, anxious & agitated w/IV sedation,. mother ponv Smoking Status: Never smoker - Past Family History Father Brother(s) Family Medical History: Cancer, Deep Vein Thrombosis (DVT) Additional Family Medical History / Comment(s): colon cancer Mother Family Medical History: Cancer Additional Family Medical History / Comment(s): . Father Family Medical History: Cancer Additional Family Medical History / Comment(s): Small intestine cancer with mets Brother(s) Family Medical History: Cancer Sister(s) Family Medical History: Cancer Medications and Allergies Home Medications Medication Instructions Recorded Confirmed Type ALPRAZolam [Xanax] 0.25 mg PO TID@0600,1200,1800 01/28/16 06/15/21 History Optive Eye Drops 1 drop BOTH EYES BID@0600,1800 01/28/16 06/15/21 History Fluticasone/Salmeterol [Advair 1 puff INHALATION RT-BID@0600,1800 10/01/19 06/15/21 History 100-50 Diskus] Meloxicam [Mobic] 7.5 mg PO DAILY@1800 10/01/19 06/15/21 History glipiZIDE [Glucotrol] 5 mg PO BID@0600,1800 10/01/19 06/15/21 History Albuterol Sulfate [Ventolin HFA] 2 puff INHALATION RT-Q4H PRN 02/01/21 06/15/21 History Ezetimibe [Zetia] 10 mg PO HS@2200 02/01/21 06/15/21 History Fluticasone Nasal [place] [Flonase 1 spray EA NOSTRIL BID@0600,1800 02/01/2106/05 History Nasal [place]] Omeprazole [PriLOSEC] 20 mg PO BID@0600,1800 02/01/21 06/15/21 History Simvastatin [Zocor] 20 mg PO HS@2200 03/01/21 06/15/21 History Dicyclomine [Bentyl] 10 mg PO DAILY@0800 04/25/21 06/15/21 History Ondansetron [Zofran ODT] 8 mg PO Q12HR PRN 04/25/21 06/15/21 History Sucralfate 1 gm PO Q6H 04/25/21 06/15/21 History guaiFENesin-Coden 100-10MG/5ML 10 ml PO Q6H 04/25/21 06/15/21 History [Robitussin AC] Ibuprofen 200 mg PO Q4H 05/06/21 06/15/21 History diphenhydrAMINE [Benadryl] 25 mg PO Q6H 05/06/21 06/15/21 History Folfax Regimen 1 dose IV Q14D 06/15/21 06/15/21 History HYDROcodone/APAP [[place] Elixir 15 ml PO Q6H 06/15/21 06/15/21 History 7.5-325Mg/15Ml] INSULIN ASPART (NovoLOG) [NovoLOG See Protocol SQ ACHS 06/15/21 06/15/21 History (formulary)] Kools Solution 5 ml PO Q4H 06/15/21 06/15/21 History Lidocaine-Prilocaine Cream [Emla 1 applic TOPICAL DIRECTED 06/15/21 06/15/21 History Cream 2.5%/2.5%] Loratadine 10 mg PO DAILY@0600 06/15/21 06/15/21 History Mesalamine [Canasa] 1,000 mg RECTAL HS PRN 06/15/21 06/15/21 History Metoprolol Succinate (ER) [Toprol 50 mg PO BID@0600,1800 06/15/21 06/15/21 H istory Xl] OLANZapine [ZyPREXA] 5 mg PO DAILY@2000 06/15/21 06/15/21 History Pembrolizumab [Keytruda] 200 mg IV Q21D 06/15/21 06/15/21 History fentaNYL 25MCG/HR PATCH [Duragesic 1 patch TRANSDERM Q3D@0800 06/15/21 06/15/21 History 25MCG/HR] Allergies Allergy/AdvReac Type Severity Reaction Status Date / Time cefazolin [From Kefzol] Allergy Rash/Hives Verified 06/15/21 06:52 Penicillins Allergy Rash/Hives Verified 06/15/21 06:52 Sulfa (Sulfonamide Allergy Rash/Hives Verified 06/15/21 06:52 Antibiotics) enalaprilat [From Vasotec] AdvReac Cough Verified 06/15/21 06:52 prochlorperazine AdvReac facial Verified 06/15/21 06:52 [From Compazine] twitching, loss of sensation of mouth Physical Exam Vitals: Vital Signs Temp Pulse Resp BP Pulse Ox 06/15/21 11:05 108 H 06/15/21 10:57 105 H 22 132/65 96 06/15/21 08:55 102 H 06/15/21 08:41 101 H 06/15/21 07:07 101 H 24 129/63 95 06/15/21 05:47 88 06/15/21 05:23 88 06/15/21 04:50 87 32 H 116/84 98 06/15/21 03:34 28 H 06/15/21 03:21 97.8 F 98 18 128/83 96 Intake and Output 06/14/21 06/15/21 06/15/21 22:59 06:59 14:59 Other: Weight 129.727 kg 129.727 kg Head normocephalic Neck supple Lungs diminished bilaterally Heart regular rate and rhythm S1-S2, no rub or gallop Abdomen is soft nontender nondistended positive bowel sounds no hepatosplenomegaly Extremities no edema Neuro alert and orientated to 3 Results CBC & Chem 7: 06/15/21 04:02 06/15/21 04:02 Labs: Abnormal Lab Results - Last 24 Hours (Table) 06/15/21 06/15/21 06/15/21 Range/Units 04:02 04:02 04:02 WBC 3.7 L (3.8-10.6) k/uL RBC 4.20 L (4.30-5.90) m/uL Hgb 11.3 L (13.0-17.5) gm/dL Hct 38.4 L (39.0-53.0) % MCHC 29.4 L (31.0-37.0) g/dL RDW 17.4 H (11.5-15.5) % Lymphocytes # (Manual) 0.85 L (1.0-4.8) k/uL APTT 20.5 L (22.0-30.0) sec Glucose 107 H (74-99) mg/dL Alkaline Phosphatase 152 H (38-126) U/L Total Protein 5.6 L (6.3-8.2) g/dL Albumin 2.6 L (3.5-5.0) g/dL Thrombosis Risk Factor Assmnt - Choose All That Apply Any of the Below Risk Factors Present?: Yes Each Factor Represents 1 point: Abnormal pulmonary function (COPD), Obesity (BMI >25), Serious lung disease incl. pneumonia (< 1month) Other Risk Factors: Yes Each Risk Factor Represents 2 Points: Malignancy Other congenital or acquired thrombophilia - If yes, enter type in comment: No Thrombosis Risk Factor Assessment Total Risk Factor Score: 5 Thrombosis Risk Factor Assessment Level: High Risk Assessment and Plan Assessment: 1. Shortness of breath secondary to bilateral pleural effusions 2. Metastatic esophageal cancer with positive pleural fluid cytology. Patient currently receiving chemotherapy follows with oncology services as well as esophageal stent on 03/01/[address] Flores 3. Reoccurring pleural effusions 4. History of COPD 5. History of GERD 6. History of essential hypertension 7. History of hyperlipidemia 8. History of diabetes mellitus DVT prophylaxis SCDs due to plans for Pleurex catheter placement. GI prophylaxis Protonix Pulmonary, cardiothoracic and oncology service is consulted Plans for Pleurx catheter placement per cardiothoracic surgery 06/16/2021 Repeat labs ordered Time with Patient: Greater than 30 (Greater than 60% of the total time spent in counseling and coordination of care)
[2021-06-15] MEDS: HYDROcodone/APAP 15 ML SOLUTION PO SCH ×3 (12:27→22:22)
[2021-06-15] MEDS: diphenhydrAMINE 25 MG CAP PO SCH ×3 (12:27→22:22)
[2021-06-15] MEDS: IBUPROFEN ORAL SUSP 2,400 MG/120 ML BOTTLE PO SCH ×3 (12:27→22:24)
[2021-06-15] MEDS: MAG HYDROX/AL HYDROX/SIMETH 30 ML, diphenhydrAMINE ELIXIR 75 MG, LIDOCAINE VISCOUS 2% 3... PO SCH ×9 (12:29→22:24)
[2021-06-15] MEDS: ALPRAZolam 0.25 MG TAB PO SCH ×2 (12:29→17:06)
[2021-06-15] MEDS: SUCRALFATE 1 GM TAB PO SCH ×3 (12:30→22:22)
[2021-06-15 12:35] LABS: Glucose,Whole Blood 190 mg/dL (75-99)
[2021-06-15] MEDS: INSULIN ASPART (NovoLOG) 100 UNIT/ML VIAL SQ SCH ×3 (12:42→22:22)
[2021-06-15 16:46] LABS: Glucose,Whole Blood 293 mg/dL (75-99)
[2021-06-15] MEDS: ARTIFICIAL TEARS-HYPROMELLOSE DROPS 15 ML BTL BOTH EYES SCH (17:05)
[2021-06-15] MEDS: MELOXICAM 7.5 MG TAB PO SCH (17:06)
[2021-06-15] MEDS: FLUTICASONE 50MCG/SPRAY NASAL 16GM EA NOSTRIL SCH (17:06)
[2021-06-15] MEDS: glipiZIDE 5 MG TAB PO SCH (17:06)
[2021-06-15] MEDS: METOPROLOL SUCCINATE (ER) 50 MG TAB.ER.24H PO SCH (17:06)
[2021-06-15] MEDS: SYMBICORT 80-4.5 MCG INHALER INHALATION SCH (20:05)
[2021-06-15 21:36] LABS: Glucose,Whole Blood 197 mg/dL (75-99)
[2021-06-15] MEDS: ATORVASTATIN 10 MG TAB PO SCH (22:22)
[2021-06-15] MEDS: EZETIMIBE 10 MG TAB PO SCH (22:22)
[2021-06-15] MEDS: OLANZapine 5 MG TAB PO SCH (22:31)
--- NOTE | 2021-06-15 22:42 | P.CONS ---
History of Present Illness - Reason for Consult Consult date: 06/15/21 eso adeno Requesting physician: Garret Vargas - Chief Complaint ARELY - History of Present Illness Mr. Pimentel is a pleasant male pt of Dr. Umaña who has a long-standing history of GERD for many years. December 2020 he developed difficulty in swallowing with solids and then subsequently to liquids, he was referred to GI by his PCP. EGD 02/03/21, showed a distal esophageal ulcerated mass with stricture extending from 35-41 cm from the incisors with significant luminal narrowing. There was also 2 cm proximal esophageal polypoid lesion at 25 cm. Biopsies from both areas came back positive for invasive poorly differentiated adenocarcinoma, biomarker testing was neg for any actionable mutations. Staging PET 02/25/21 showed mildly hypermetabolic subcentimeter left supraclavicular nodes, SUV 2.97, additional nodes at the level of the thyroid largest 1 x 0.9 cm SUV 5.23. There was a right supraclavicular node 1.4 cm with SUV 5.46. Moderate to severe concentric wall thickening with abnormal uptake noted startinng near emeli, abnormal subcarinal adenopathy and paraesophageal adenopathy, abnormal adenopathy in the mediastinum anterior to the pulmonary root. 1.9 cm right hilar node and additional abnormal right paratracheal nodes largest 1.4 cm on hypermetabolic also effect. In addition there was concern for more distant disease with mildly enlarged and prominent left axillary nodes 2.2 cm with SUV 8.04, and a 2.8 cm left adrenal mass SUV 8.65. Pt was quite compromised because of his dysphagia when seen in the office so, he was admitted for IV hydration. GI did an EGD and placed a stent. Post stent placement the patient's condition did improve. He also received short-term TPN while in the hospital. He was then able to be discharged. He had palliative radiation to the primary site, completing the same on 03/29/21. Started chemo with FOLFOX 04/15/21, Keytruda Q 3 wks was added with C 2. Early May pt required port replacement 2/2 device malfunction. He had developed progressive pleural effusion requiring thoracentesis, with positive cytology. He has cont on treatment and done fairly well. He is currently admitted with persistent and progressive SOB, he has rt pleural effusion. Review of Systems 10 point ROS is neg except as stated in HPI Past Medical History Past Medical History: Asthma, Cancer, COPD, Diabetes Mellitus, GERD/Reflux, Hyperlipidemia, Hypertension, Osteoarthritis (OA), Sleep Apnea/CPAP/BIPAP Additional Past Medical History / Comment(s): uses CPAP, occ. 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) History of Any Multi-Drug Resistant Organisms: None Reported Past Surgical History: Hernia Repair, Joint Replacement, Orthopedic Surgery Additional Past Surgical History / Comment(s): cystoscopy, both knees replaced, multiple arthroscopies knees, colonoscopies, dental implant, right hip replaced, stent in esophabus 02/03/21, port rt side inserted 03/2021, esophageal stent placed and port inserted 04/26/21 Past Anesthesia/Blood Transfusion Reactions: Previous Problems w/ Anesthesia, Family History of Problems w/ Anesthesia, Motion Sickness Additional Past Anesthesia/Blood Transfusion Reaction / Comm: very combative when waking up from general anesthesia, anxious & agitated w/IV sedation,. mother ponv Past Psychological History: Anxiety Smoking Status: Never smoker Past Alcohol Use History: None Reported Past Drug Use History: None Reported - Past Family History Father Brother(s) Family Medical History: Cancer, Deep Vein Thrombosis (DVT) Additional Family Medical History / Comment(s): colon cancer Mother Family Medical History: Cancer Additional Family Medical History / Comment(s): . Father Family Medical History: Cancer Brother(s) Family Medical History: Cancer Sister(s) Family Medical History: Cancer Medications and Allergies Home Medications Medication Instructions Recorded Confirmed Type ALPRAZolam [Xanax] 0.25 mg PO TID@0600,1200,1800 01/28/16 06/15/21 History Optive Eye Drops 1 drop BOTH EYES BID@0600,1800 01/28/16 06/15/21 History Fluticasone/Salmeterol [Advair 1 puff INHALATION RT-BID@0600,1800 10/01/19 06/15/21 History 100-50 Diskus] Meloxicam [Mobic] 7.5 mg PO DAILY@1800 10/01/19 06/15/21 History glipiZIDE [Glucotrol] 5 mg PO BID@0600,1800 10/01/19 06/15/21 History Albuterol Sulfate [Ventolin HFA] 2 puff INHALATION RT-Q4H PRN 02/01/21 06/15/21 History Ezetimibe [Zetia] 10 mg PO HS@2200 02/01/21 06/15/21 History Fluticasone Nasal [place] [Flonase 1 spray EA NOSTRIL BID@0600,1800 02/01/21 06/15/21 History Nasal [place]] Omeprazole [PriLOSEC] 20 mg PO BID@0600,1800 02/01/21 06/15/21 History Simvastatin [Zocor] 20 mg PO HS@2200 03/01/21 06/15/21 History Dicyclomine [Bentyl] 10 mg PO DAILY@0800 04/25/21 06/15/21 History Ondansetron [Zofran ODT] 8 mg PO Q12HR PRN 04/25/21 06/15/21 History Sucralfate 1 gm PO Q6H 04/25/21 06/15/21 History guaiFENesin-Coden 100-10MG/5ML 10 ml PO Q6H 04/25/21 06/15/21 History [Robitussin AC] Ibuprofen 200 mg PO Q4H 05/06/21 06/15/21 History diphenhydrAMINE [Benadryl] 25 mg PO Q6H 05/06/21 06/15/21 History Folfax Regimen 1 dose IV Q14D 06/15/21 06/15/21 History HYDROcodone/APAP [[place] Elixir 15 ml PO Q6H 06/15/21 06/15/21 History 7.5-325Mg/15Ml] INSULIN ASPART (NovoLOG) [NovoLOG See Protocol SQ ACHS 06/15/21 06/15/21 History (formulary)] Kools Solution 5 ml PO Q4H 06/15/21 06/15/21 History Lidocaine-Prilocaine Cream [Emla 1 applic TOPICAL DIRECTED 06/15/21 06/15/21 History Cream 2.5%/2.5%] Loratadine 10 mg PO DAILY@0600 06/15/21 06/15/21 History Mesalamine [Canasa] 1,000 mg RECTAL HS PRN 06/15/21 06/15/21 History Metoprolol Succinate (ER) [Toprol 50 mg PO BID@0600,1800 06/15/21 06/15/21 History Xl] OLANZapine [ZyPREXA] 5 mg PO DAILY@2000 06/15/21 06/15/21 History Pembrolizumab [Keytruda] 200 mg IV Q21D 06/15/21 06/15/21 History fentaNYL 25MCG/HR PATCH [Duragesic 1 patch TRANSDERM Q3D@0800 06/15/21 06/15/21 History 25MCG/HR] Allergies Allergy/AdvReac Type Severity Reaction Status Date / Time cefazolin [From Kefzol] Allergy Rash/Hives Verified 06/15/21 06:52 Penicillins Allergy Rash/Hives Verified 06/15/21 06:52 Sulfa (Sulfonamide Allergy Rash/Hives Verified 06/15/21 06:52 Antibiotics) enalaprilat [From Vasotec] AdvReac Cough Verified 06/15/21 06:52 prochlorperazine AdvReac facial Verified 06/15/21 06:52 [From Compazine] twitching, loss of sensation of mouth Physical Exam Vitals: Vital Signs Temp Pulse Resp BP Pulse Ox 06/15/21 07:07 101 H 24 129/63 95 06/15/21 05:47 88 06/15/21 05:23 88 06/15/21 04:50 87 32 H 116/84 98 06/15/21 03:34 28 H 06/15/21 03:21 97.8 F 98 18 128/83 96 Intake and Output 06/14/21 06/15/21 06/15/21 22:59 06:59 14:59 Other: Weight 129.727 kg - Constitutional General appearance: cooperative, mild distress, obese - EENT Eyes: anicteric sclerae, EOMI ENT: hearing grossly normal, normal oropharynx - Neck Neck: lymphadenopathy (lt supraclavicular LN) - Respiratory Respiratory: right: other (absent lower 1/3), left: CTA - Cardiovascular Rhythm: regular Heart sounds: normal: S1, S2 Abnormal Heart Sounds: no systolic murmur, no diastolic murmur, no rub, no S3 Gallop, no S4 Gallop, no click, no other leg Peripheral Edema: bilateral: None - Gastrointestinal General gastrointestinal: no absent bowel sounds, no decreased bowel sounds, no distended, no hepatomegaly, no hyperactive bowel sounds, normal bowel sounds, no organomegaly, no rigid, no scaphoid, soft, no splenomegaly, no tenderness, no umbilical hernia, no ventral hernia - Integumentary Integumentary: normal - Neurologic Neurologic: CNII-XII intact - Musculoskeletal Musculoskeletal: strength equal bilaterally - Psychiatric Psychiatric: A&O x's 3, appropriate affect, intact judgment & insight Results CBC & Chem 7: 06/15/21 04:02 06/15/21 04:02 Labs: Abnormal Lab Results - Last 24 Hours (Table) 06/15/21 06/15/21 06/15/21 Range/Units 04:02 04:02 04:02 WBC 3.7 L (3.8-10.6) k/uL RBC 4.20 L (4.30-5.90) m/uL Hgb 11.3 L (13.0-17.5) gm/dL Hct 38.4 L (39.0-53.0) % MCHC 29.4 L (31.0-37.0) g/dL RDW 17.4 H (11.5-15.5) % Lymphocytes # (Manual) 0.85 L (1.0-4.8) k/uL APTT 20.5 L (22.0-30.0) sec Glucose 107 H (74-99) mg/dL Alkaline Phosphatase 152 H (38-126) U/L Total Protein 5.6 L (6.3-8.2) g/dL Albumin 2.6 L (3.5-5.0) g/dL Chest x-ray: report reviewed Assessment and Plan (1) Esophageal cancer Current Visit: Yes Status: Acute Priority: High Code(s): C15.9 - MALIGNANT NEOPLASM OF ESOPHAGUS, UNSPECIFIED SNOMED Code(s): 614665889 (2) Recurrent right pleural effusion Current Visit: Yes Status: Acute Priority: High Code(s): J90 - PLEURAL EFFUSION, NOT ELSEWHERE CLASSIFIED SNOMED Code(s): 38899007 Plan: Pt has been doing well with treatment. He has been seen by Pulmonary and Cardiothoracic Surgery. Plans for pleurex drain for pt comfort and quality of life is reasonable. Labs reviewed. Supportive care. Attests: I have performed H&P, seen and examined pt, developed impression and plan of care. Discussed with dictator. Agree with dictation, documented as a scribe.
[2021-06-16] MEDS: IBUPROFEN ORAL SUSP 2,400 MG/120 ML BOTTLE PO SCH ×7 (00:36→23:07)
[2021-06-16] MEDS: MAG HYDROX/AL HYDROX/SIMETH 30 ML, diphenhydrAMINE ELIXIR 75 MG, LIDOCAINE VISCOUS 2% 3... PO SCH ×21 (00:36→23:07)
[2021-06-16] MEDS: IPRATROPIUM-ALBUTEROL 3 ML NEB INHALATION SCH ×6 (00:37→21:04)
[2021-06-16] MEDS: HYDROcodone/APAP 15 ML SOLUTION PO SCH ×4 (03:24→21:03)
[2021-06-16] MEDS: SUCRALFATE 1 GM TAB PO SCH ×4 (03:24→21:03)
[2021-06-16] MEDS: diphenhydrAMINE 25 MG CAP PO SCH ×4 (03:24→21:03)
[2021-06-16] MEDS: HYDROmorphone 1 MG/ML 1 ML SYRINGE IVP PRN ×2 (05:46→19:57)
[2021-06-16] MEDS: ALPRAZolam 0.25 MG TAB PO SCH ×4 (06:38→17:05)
[2021-06-16] MEDS: METOPROLOL SUCCINATE (ER) 50 MG TAB.ER.24H PO SCH ×3 (06:39→17:05)
[2021-06-16] MEDS: glipiZIDE 5 MG TAB PO SCH ×2 (06:39→17:05)
[2021-06-16] MEDS: PANTOPRAZOLE SODIUM 40 MG GRANULE PKT PO SCH (06:39)
[2021-06-16] MEDS: FLUTICASONE 50MCG/SPRAY NASAL 16GM EA NOSTRIL SCH ×2 (06:39→17:05)
[2021-06-16] MEDS: ARTIFICIAL TEARS-HYPROMELLOSE DROPS 15 ML BTL BOTH EYES SCH ×2 (06:39→17:04)
[2021-06-16] MEDS: LORATADINE 10 MG TAB PO SCH (06:39)
[2021-06-16 07:20] LABS: Glucose,Whole Blood 112 mg/dL (75-99)
[2021-06-16] MEDS: INSULIN ASPART (NovoLOG) 100 UNIT/ML VIAL SQ SCH ×4 (07:45→21:03)
[2021-06-16] MEDS: DICYCLOMINE 10 MG CAP PO SCH (07:50)
[2021-06-16 08:02] LABS: ALT 9 U/L (4-49); AST 18 U/L (17-59); African American GFR (CKD) >90 (>60 ml/min/1.73 sqM); Albumin 2.4 g/dL (3.5-5.0); Albumin/Globulin Ratio 0.9; Alkaline Phosphatase 123 U/L (38-126); Anion Gap 2 mmol/L; Blood Urea Nitrogen 19 mg/dL (9-20); Calcium 8.3 mg/dL (8.4-10.2); Carbon Dioxide 31 mmol/L (22-30); Chloride 104 mmol/L (98-107); Globulin 2.7 g/dL; Glucose 130 mg/dL (74-99); Non-African American GFR(CKD) >90 (>60 ml/min/1.73 sqM); Potassium 4.2 mmol/L (3.5-5.1); Sodium 137 mmol/L (137-145); Total Bilirubin 0.5 mg/dL (0.2-1.3); Total Protein 5.1 g/dL (6.3-8.2)
[2021-06-16] MEDS: SYMBICORT 80-4.5 MCG INHALER INHALATION SCH ×2 (08:28→21:04)
[2021-06-16 08:37] LABS: Anisocytosis Slight; HCT 35.9 % (39.0-53.0); Hypochromasia Moderate; MCH 27.9 pg (25.0-35.0); MCHC 30.6 g/dL (31.0-37.0); MCV 91.3 fL (80.0-100.0); Mean Platelet Volume 6.7; Platelet Count 343 k/uL (150-450); RBC 3.93 m/uL (4.30-5.90); RDW 17.8 % (11.5-15.5); WBC 4.7 k/uL (3.8-10.6)
[2021-06-16] MEDS ORDERED: IV FLUID CONTINUATION 100 ML IV ONE (08:48)
[2021-06-16] MEDS ORDERED: ONDANSETRON 4 MG/2 ML VIAL ONE (09:03)
[2021-06-16] MEDS ORDERED: LACTATED RINGERS 1,000 ML IV ONE (09:05)
[2021-06-16] MEDS ORDERED: DEXAMETHASONE SOD PHOSPHATE 4 MG/ML 1 ML VIAL IV ONE (09:05)
[2021-06-16] MEDS ORDERED: ONDANSETRON 4 MG/2 ML VIAL IVP ONE (09:05)
--- NOTE | 2021-06-16 09:47 | P.PN ---
Subjective Progress Note Date: 06/16/21 Principal diagnosis: Recurrent malignant bilateral pleural effusions, right greater than left, progressive shortness of breath. Previous medical history of metastatic esophageal cancer, receiving radiation therapy, status post esophageal stent placed 03/01/[address] Cesar Sheehan, hypertension, hyperlipidemia, obstructive sleep apnea with use, GERD, diabetes, never smoker The patient was seen and examined this morning sitting up on a cart in the preoperative area anticipating Pleurx catheter placement today, however surgeon his emergency elsewhere so Pleurx catheter will be placed tomorrow. This was discussed with patient, he understands and is in agreement. Denies pain currently, denies increased shortness of breath. Remains on 4 L nasal cannula with oxygen saturation 98%. Objective - Vital Signs Vital signs: Vital Signs Temp 97.7 F 06/16/21 08:49 Pulse 105 H 06/16/21 08:49 Resp 16 06/16/21 08:49 BP 143/71 06/16/21 08:49 Pulse Ox 98 06/16/21 08:49 Intake & Output 06/15/21 06/16/21 06/16/21 18:59 06:59 18:59 Intake Total 100 Balance 100 Weight 129.727 kg Intake: IV 100 Other: # Voids 2 2 - Exam CONSTITUTIONAL: Appears comfortable, cooperative, no acute distress RESPIRATORY: Lungs sounds diminished bilaterally, right greater than left. Respirations even, nonlabored. Currently on 4 L nasal cannula with oxygen saturation 98%. Able to achieve 1500 mL on incentive spirometry. Strong cough. CARDIOVASCULAR: S1, S2 present. Regular rate and rhythm. Palpable peripheral pulses bilaterally. Trace bilateral lower extremity edema present. No calf pain or tenderness noted. GASTROINTESTINAL: Abdomen soft, nontender, nondistended. Active bowel sounds present 4 quadrants. GENITOURINARY: Continues to void INTEGUMENTARY: Skin is warm and dry NEUROLOGIC: Cranial nerves II through XII intact MUSKULOSKELETAL: Able to move all extremities, strength equal bilaterally, gait normal PSYCHIATRIC: Alert and oriented to person place and time, appropriate affect, intact judgment and insight - Labs CBC & Chem 7: 06/16/21 07:21 06/16/21 07:21 Labs: Abnormal Lab Results - Last 24 Hours (Table) 06/15/21 06/15/21 06/15/21 Range/Units 12:34 16:44 21:34 RBC (4.30-5.90) m/uL Hgb (13.0-17.5) gm/dL Hct (39.0-53.0) % MCHC (31.0-37.0) g/dL RDW (11.5-15.5) % Carbon Dioxide (22-30) mmol/L Glucose (74-99) mg/dL POC Glucose (mg/dL) 190 H 293 H 197 H (75-99) mg/dL Calcium (8.4-10.2) mg/dL Total Protein (6.3-8.2) g/dL Albumin (3.5-5.0) g/dL 06/16/21 06/16/21 06/16/21 Range/Units 07:18 07:21 07:21 RBC 3.93 L (4.30-5.90) m/uL Hgb 11.0 L (13.0-17.5) gm/dL Hct 35.9 L (39.0-53.0) % MCHC 30.6 L (31.0-37.0) g/dL RDW 17.8 H (11.5-15.5) % Carbon Dioxide 31 H (22-30) mmol/L Glucose 130 H (74-99) mg/dL POC Glucose (mg/dL) 112 H (75-99) mg/dL Calcium 8.3 L (8.4-10.2) mg/dL Total Protein 5.1 L (6.3-8.2) g/dL Albumin 2.4 L (3.5-5.0) g/dL Assessment and Plan Assessment: 1. Recurrent malignant bilateral pleural effusions, right greater than left 2. Progressive shortness of breath secondary to above 3. History of metastatic esophageal cancer, receiving radiation therapy, status post esophageal stent placed 03/01/[address] Cesar Sheehan 4. History of hypertension 5. History of hyperlipidemia 6. Obstructive sleep apnea with use 7. GERD 8. Diabetes 9. Never smoker Plan: 1. We will plan for right-sided Pleurx catheter placement tomorrow with Dr. Wilma mckee. Patient will be nothing by mouth after midnight 2. Wean O2 as tolerated. Encourage incentive spirometry use 10 times every hour while awake. Bronchodilators per pulmonology 3. Increase activity as tolerated 4. Medical management of other comorbidities per primary care, oncology, pulmonology 5. More recommendations to follow
[2021-06-16 10:43] LABS: Lymphocytes # (M) 0.28 k/uL (1.0-4.8); Monocytes # (M) 0.71 k/uL (0-1.0); Neutrophils # (M) 3.71 k/uL (1.3-7.7); Neutrophils % (M) 79 %; Nucleated Red Blood Cells 0 /100 WBC (0-0); Total Cells Counted 100
[2021-06-16 11:10] LABS: Glucose,Whole Blood 180 mg/dL (75-99)
[2021-06-16] MEDS ORDERED: FUROSEMIDE 10 MG/ML 4 ML VIAL IV STA (11:33)
--- NOTE | 2021-06-16 12:05 | P.PN ---
Subjective Progress Note Date: 06/16/21 Principal diagnosis: Difficulty in breathing, recurrent malignant effusion. In follow-up today patient states that he continues to have shortness of breath with any activity, including eating. He continues to have "waves" of pain, musculoskeletal in nature. Is currently been using [place] [facility] and he has on a 25 g fentanyl patch. Objective - Vital Signs Vital signs: Vital Signs Temp 97.7 F 06/16/21 08:49 Pulse 92 06/16/21 11:35 Resp 16 06/16/21 08:49 BP 143/71 06/16/21 08:49 Pulse Ox 98 06/16/21 08:49 Intake & Output 06/15/21 06/16/21 06/16/21 18:59 06:59 18:59 Intake Total 260 Balance 260 Weight 129.727 kg Intake: IV 100 Intake, IV Titration 160 Amount IV Fluid Continuation 100 160 ml @ 0 mls/hr IV .[facility]- [facility] ONE Rx#:[id number] Other: # Voids 2 2 - Constitutional General appearance: Present: cooperative, morbidly obese, no acute distress - EENT Eyes: Present: anicteric sclerae, EOMI ENT: Present: hearing grossly normal, normal oropharynx - Respiratory Respiratory: bilateral: other (Lower two thirds of the right lung lung and lower third of left lung absent breath sounds) - Cardiovascular Rhythm: regular Heart sounds: normal: S1, S2 Abnormal Heart Sounds: Absent: systolic murmur, diastolic murmur, rub, S3 Gallop, S4 Gallop, click, other - Peripheral edema leg Peripheral Edema: bilateral: None - Gastrointestinal General gastrointestinal: Present: normal bowel sounds, soft. Absent: absent bowel sounds, decreased bowel sounds, distended, hepatomegaly, hyperactive bowel sounds, organomegaly, rigid, scaphoid, splenomegaly, tenderness, umbilical hernia, ventral hernia - Integumentary Integumentary: Present: pale - Neurologic Neurologic: Present: CNII-XII intact - Musculoskeletal Musculoskeletal: Present: generalized weakness - Psychiatric Psychiatric: Present: A&O x's 3, appropriate affect, intact judgment & insight - Labs CBC & Chem 7: 06/16/21 07:21 06/16/21 07:21 Labs: Abnormal Lab Results - Last 24 Hours (Table) 05/11/22 05/11/22 05/11/22 Range/Units 12:34 16:44 21:34 RBC (4.30-5.90) m/uL Hgb (13.0-17.5) gm/dL Hct (39.0-53.0) % MCHC (31.0-37.0) g/dL RDW (11.5-15.5) % Lymphocytes # (Manual) (1.0-4.8) k/uL Carbon Dioxide (22-30) mmol/L Glucose (74-99) mg/dL POC Glucose (mg/dL) 190 H 293 H 197 H (75-99) mg/dL Calcium (8.4-10.2) mg/dL Total Protein (6.3-8.2) g/dL Albumin (3.5-5.0) g/dL 06/16/21 06/16/21 06/16/21 Range/Units 07:18 07:21 07:21 RBC 3.93 L (4.30-5.90) m/uL Hgb 11.0 L (13.0-17.5) gm/dL Hct 35.9 L (39.0-53.0) % MCHC 30.6 L (31.0-37.0) g/dL RDW 17.8 H (11.5-15.5) % Lymphocytes # (Manual) 0.28 L (1.0-4.8) k/uL Carbon Dioxide 31 H (22-30) mmol/L Glucose 130 H (74-99) mg/dL POC Glucose (mg/dL) 112 H (75-99) mg/dL Calcium 8.3 L (8.4-10.2) mg/dL Total Protein 5.1 L (6.3-8.2) g/dL Albumin 2.4 L (3.5-5.0) g/dL 06/16/21 Range/Units 11:08 RBC (4.30-5.90) m/uL Hgb (13.0-17.5) gm/dL Hct (39.0-53.0) % MCHC (31.0-37.0) g/dL RDW (11.5-15.5) % Lymphocytes # (Manual) (1.0-4.8) k/uL Carbon Dioxide (22-30) mmol/L Glucose (74-99) mg/dL POC Glucose (mg/dL) 180 H (75-99) mg/dL Calcium (8.4-10.2) mg/dL Total Protein (6.3-8.2) g/dL Albumin (3.5-5.0) g/dL Assessment and Plan (1) Esophageal cancer Current Visit: Yes Status: Acute Priority: High Code(s): C15.9 - MALIGNANT NEOPLASM OF ESOPHAGUS, UNSPECIFIED SNOMED Code(s): 650455595 (2) Recurrent right pleural effusion Current Visit: Yes Status: Acute Priority: High Code(s): J90 - PLEURAL EFFUSION, NOT ELSEWHERE CLASSIFIED SNOMED Code(s): 79662652 Plan: Pt has been doing well with treatment for cancer. This will continue in the outpatient setting. He has been seen by Pulmonary and Cardiothoracic Surgery. Plans for pleurex drain for pt comfort and quality of life is reasonable. Labs reviewed. Supportive care.
--- NOTE | 2021-06-16 13:11 | P.PN ---
Subjective Progress Note Date: 06/16/21 Principal diagnosis: Shortness of breath This is a 70-year-old male with a history of esophageal cancer. About a month ago, the patient was hospitalized with bilateral pleural effusions. He had a thoracentesis performed on both sides, and the cytology on the right-sided effusion, with positive for cancer cells, consistent with his primary esophageal cancer. The patient is readmitted to the hospital because of shortness of breath. He seen in the emergency room on June 15. In my opinion, the patient is best served by having a Pleurx catheter placed. The patient has a history of COPD, esophageal cancer, diabetes, GERD, hyperlipidemia, hypertension, osteoarthritis, and sleep apnea. He does use CPAP for his sleep apnea syndrome. White count 3.7, hemoglobin 11.3, hematocrit 38.4, and platelet count 319,000. Sodium, potassium, chloride, CO2, BUN, and creatinine are all normal and glucose is 107. Albumin 2.6. Chest x-ray shows bilateral right and left effusions. Cardiothoracic surgery was consulted for placement of a Pleurx catheter. On 06/16/2021 patient seen in follow-up on medical surgical floor. He is awake, in no acute distress, he states he still feels short of breath with any exertion, but no acute distress. She is on 4 L of oxygen pulse ox is 98%, no complaints of chest discomfort. Occasional cough, no phlegm production, no fever or chills, patient was scheduled for a Pleurx catheter insertion by CT surgery, however this was rescheduled until tomorrow. Patient's in the meantime continues on inhaled and nebulized bronchodilators. His COPD is stable. She did develop significant lower extremity edema, he was given some IV fluids in the emergency department during initial presentation. Today's labs have been reviewed showing white blood cell, 4.7, hemoglobin of 11, sodium is 137, potassium is 4.2, chloride is 104, CO2 31, BUN is 19, creatinine 0.68. Objective - Vital Signs Vital signs: Vital Signs Temp 97.7 F 06/16/21 08:49 Pulse 92 06/16/21 11:35 Resp 16 06/16/21 08:49 BP 143/71 06/16/21 08:49 Pulse Ox 98 06/16/21 08:49 Intake & Output 06/15/21 06/16/2106/16/22 18:59 06:59 18:59 Intake Total 260 Balance 260 Weight 129.727 kg Intake: IV 100 Intake, IV Titration 160 Amount IV Fluid Continuation 100 160 ml @ 0 mls/hr IV .[employer] [employer] ONE Rx#:[id number] Other: # Voids 2 2 - Exam GENERAL EXAM: Alert, very pleasant, 70-year-old white male, on 4 L of oxygen with a pulse ox of 98%, comfortable in no apparent distress. HEAD: Normocephalic/atraumatic. EYES: Normal reaction of pupils, equal size. Conjunctiva pink, sclera white. NOSE: Clear with pink turbinates. THROAT: No erythema or exudates. NECK: No masses, no JVD, no thyroid enlargement, no adenopathy. CHEST: No chest wall deformity. Symmetrical expansion. LUNGS: Diminished breath sounds at the bases, and bibasilar crackles CVS: Regular rate and rhythm, normal S1 and S2, no gallops, no murmurs, no rubs ABDOMEN: Soft, nontender. No hepatosplenomegaly, normal bowel sounds, no guarding or rigidity. EXTREMITIES: No clubbing, 2 plus lower extremity edema no cyanosis, 2+ pulses and upper and lower extremities. MUSCULOSKELETAL: Muscle strength and tone normal. SPINE: No scoliosis or deformity SKIN: No rashes CENTRAL NERVOUS SYSTEM: Alert and oriented -3. No focal deficits, tone is normal in all 4 extremities. PSYCHIATRIC: Alert and oriented -3. Appropriate affect. Intact judgment and insight. - Labs CBC & Chem 7: 06/16/21 07:21 06/16/21 07:21 Labs: Abnormal Lab Results - Last 24 Hours (Table) 06/15/21 06/15/21 06/16/21 Range/Units 16:44 21:34 07:18 RBC (4.30-5.90) m/uL Hgb (13.0-17.5) gm/dL Hct (39.0-53.0) % MCHC (31.0-37.0) g/dL RDW (11.5-15.5) % Lymphocytes # (Manual) (1.0-4.8) k/uL Carbon Dioxide (22-30) mmol/L Glucose (74-99) mg/dL POC Glucose (mg/dL) 293 H 197 H 112 H (75-99) mg/dL Calcium (8.4-10.2) mg/dL Total Protein (6.3-8.2) g/dL Albumin (3.5-5.0) g/dL 06/16/21 06/16/21 06/16/21 Range/Units 07:21 07:21 11:08 RBC 3.93 L (4.30-5.90) m/uL Hgb 11.0 L (13.0-17.5) gm/dL Hct 35.9 L (39.0-53.0) % MCHC 30.6 L (31.0-37.0) g/dL RDW 17.8 H (11.5-15.5) % Lymphocytes # (Manual) 0.28 L (1.0-4.8) k/uL Carbon Dioxide 31 H (22-30) mmol/L Glucose 130 H (74-99) mg/dL POC Glucose (mg/dL) 180 H (75-99) mg/dL Calcium 8.3 L (8.4-10.2) mg/dL Total Protein 5.1 L (6.3-8.2) g/dL Albumin 2.4 L (3.5-5.0) g/dL Assessment and Plan Plan: Assessment: #1. Acute on chronic hypoxic respiratory failure related to bilateral pleural effusions, right greater than left. Patient has been scheduled for right Pleurx catheter insertion on 06/17/2021 #2. Metastatic adenocarcinoma of the esophagus diagnosed on 02/03/2021 status post chemo and radiation therapy #3. Recent hospitalization for right pleural effusion, status post right-sided thoracentesis on 05/10/2021 with removal of 2 L of exudative fluid and the pleural fluid was positive for metastatic adenocarcinoma of the esophagus primary. Patient had left-sided thoracentesis on 05/11/2021 with removal of 650 mL of pleural fluid which was also positive for metastatic adenocarcinoma #3. History of COPD #4. Chronic dysphagia #5. History of COPD #6. Diabetes mellitus type 2 #7. Hypertension #8. Hyperlipidemia #9. Osteoarthritis #10. Sleep apnea on home CPAP #11. Anxiety Plan: We'll give the patient 1 dose of IV Lasix 40 mg Cut back to IV fluids Patient is in no acute distress Breathing is stable He scheduled Pleurx catheter placement tomorrow by Dr. Richardson Continue bronchodilators We'll continue to follow his clinical course I have personally seen and examined the patient, performed the documentation and the assessment and plan as written. Number of minutes spent on the visit: [10] Time with Patient: Less than 30
[2021-06-16 13:16] VITALS: BMI 35.7
[2021-06-16 16:08] LABS: Glucose,Whole Blood 209 mg/dL (75-99)
[2021-06-16] MEDS: MELOXICAM 7.5 MG TAB PO SCH (17:05)
--- NOTE | 2021-06-16 17:45 | P.PN ---
Subjective Progress Note Date: 06/16/21 This is a 70-year-old male patient who presented with increased shortness of breath that have been progressively increasing over the past few days. Patient has a known past medical history of esophageal cancer with malignant pleural effusions. Patient recently underwent thoracentesis on both sides in which findings were consistent with cancer cells with primary esophageal cancer. Patient has been following with oncology services in which he is maintained on chemo regime. Patient does have chest wall port in place. Additional medical history includes asthma, cancer, COPD, diabetes mellitus, GERD, hyperlipidemia, hypertension, sleep apnea and anxiety. Chest x-ray was completed showing pleural effusions and pulmonary congestion increased compared to last exam congestive heart failure is probably present. At this time pulmonary, oncology and cardiothoracic surgery has also been consulted plans for Pleurx catheter placement due to recurrent pleural effusions. Current vital signs heart rate 105, respiratory rate 22, blood pressure 132/65 with a pulse ox of 96% on 3 L. On 06/16/2021 patient was seen and examined on the telemetry floor he is alert and oriented 3 in no apparent distress there is no fever or chills no headache or dizziness no chest pain shortness of breath has improved no nausea or vomiting no abdominal pain no diarrhea and no urinary symptoms Objective - Vital Signs Vital signs: Vital Signs Temp 97.5 F L 06/16/21 14:00 Pulse 89 06/16/21 15:49 Resp 19 06/16/21 14:00 BP 159/103 06/16/21 14:00 Pulse Ox 95 06/16/21 14:00 Intake & Output 06/15/21 06/16/21 06/16/21 18:59 06:59 18:59 Intake Total 260 Balance 260 Weight 129.727 kg 129.727 kg Intake: IV 100 Intake, IV Titration 160 Amount IV Fluid Continuation 100 160 ml @ 0 mls/hr IV .[employer] [employer] ONE Rx#:[id number] Other: # Voids 2 2 - Exam Head normocephalic Neck supple Lungs diminished bilaterally Heart regular rate and rhythm S1-S2, no rub or gallop Abdomen is soft nontender nondistended positive bowel sounds no hepatosplenomegaly Extremities no edema Neuro alert and orientated to 3 - Labs CBC & Chem 7: 06/16/21 07:21 06/16/21 07:21 Labs: Abnormal Lab Results - Last 24 Hours (Table) 06/15/21 06/16/21 06/16/21 Range/Units 21:34 07:18 07:21 RBC 3.93 L (4.30-5.90) m/uL Hgb 11.0 L (13.0-17.5) gm/dL Hct 35.9 L (39.0-53.0) % MCHC 30.6 L (31.0-37.0) g/dL RDW 17.8 H (11.5-15.5) % Lymphocytes # (Manual) 0.28 L (1.0-4.8) k/uL Carbon Dioxide (22-30) mmol/L Glucose (74-99) mg/dL POC Glucose (mg/dL) 197 H 112 H (75-99) mg/dL Calcium (8.4-10.2) mg/dL Total Protein (6.3-8.2) g/dL Albumin (3.5-5.0) g/dL 06/16/21 06/16/21 06/16/21 Range/Units 07:21 11:08 16:07 RBC (4.30-5.90) m/uL Hgb (13.0-17.5) gm/dL Hct (39.0-53.0) % MCHC (31.0-37.0) g/dL RDW (11.5-15.5) % Lymphocytes # (Manual) (1.0-4.8) k/uL Carbon Dioxide 31 H (22-30) mmol/L Glucose 130 H (74-99) mg/dL POC Glucose (mg/dL) 180 H 209 H (75-99) mg/dL Calcium 8.3 L (8.4-10.2) mg/dL Total Protein 5.1 L (6.3-8.2) g/dL Albumin 2.4 L (3.5-5.0) g/dL Assessment and Plan Assessment: 1. Shortness of breath secondary to bilateral pleural effusions 2. Metastatic esophageal cancer with positive pleural fluid cytology. Patient currently receiving chemotherapy follows with oncology services as well as esophageal stent on 03/01/[address] Flores 3. Reoccurring pleural effusions 4. History of COPD 5. History of GERD 6. History of essential hypertension 7. History of hyperlipidemia 8. History of diabetes mellitus DVT prophylaxis SCDs due to plans for Pleurex catheter placement. GI prophylaxis Protonix Pulmonary, cardiothoracic and oncology service is consulted Plans for Pleurx catheter placement per cardiothoracic surgery 06/16/2021 Repeat labs ordered
[2021-06-16] MEDS: OLANZapine 5 MG TAB PO SCH (19:27)
[2021-06-16] MEDS: EZETIMIBE 10 MG TAB PO SCH (20:56)
[2021-06-16] MEDS: ATORVASTATIN 10 MG TAB PO SCH (20:56)
[2021-06-16 20:59] LABS: Glucose,Whole Blood 234 mg/dL (75-99)
[2021-06-17] MEDS ORDERED: diphenhydrAMINE 25 MG CAP ONE (04:00)
[2021-06-17] MEDS ORDERED: HYDROcodone/APAP 15 ML SOLUTION ONE (04:00)
[2021-06-17] MEDS: IPRATROPIUM-ALBUTEROL 3 ML NEB INHALATION SCH ×7 (05:47→23:40)
[2021-06-17] MEDS: PANTOPRAZOLE SODIUM 40 MG GRANULE PKT PO SCH (05:48)
[2021-06-17] MEDS: LORATADINE 10 MG TAB PO SCH (05:48)
[2021-06-17] MEDS: ALPRAZolam 0.25 MG TAB PO SCH ×3 (06:01→19:46)
[2021-06-17] MEDS: METOPROLOL SUCCINATE (ER) 50 MG TAB.ER.24H PO SCH ×2 (06:01→19:47)
[2021-06-17 06:02] LABS: Glucose,Whole Blood 125 mg/dL (75-99)
[2021-06-17] MEDS: FLUTICASONE 50MCG/SPRAY NASAL 16GM EA NOSTRIL SCH ×2 (06:02→19:46)
[2021-06-17] MEDS: ARTIFICIAL TEARS-HYPROMELLOSE DROPS 15 ML BTL BOTH EYES SCH ×2 (06:03→19:46)
[2021-06-17] MEDS: glipiZIDE 5 MG TAB PO SCH ×2 (06:49→19:47)
[2021-06-17 06:56] LABS: Glucose,Whole Blood 131 mg/dL (75-99)
[2021-06-17] MEDS: INSULIN ASPART (NovoLOG) 100 UNIT/ML VIAL SQ SCH ×4 (08:14→21:40)
[2021-06-17] MEDS: DICYCLOMINE 10 MG CAP PO SCH (08:21)
[2021-06-17] MEDS: SYMBICORT 80-4.5 MCG INHALER INHALATION SCH ×2 (08:52→20:49)
[2021-06-17 09:07] LABS: Basophils # (A) 0 X 10*3/uL (0.00-0.10); Basophils % (A) 0 %; Eosinophils # (A) 0.01 X 10*3/uL (0.04-0.35); Eosinophils % (A) 0.3 %; HCT 32.8 % (39.6-50.0); HGB 10.1 g/dL (13.0-17.0); Immature Grans, Automated 0.3 %; Lymphocytes # (A) 0.49 X 10*3/uL (0.90-5.00); Lymphocytes % (A) 14.5 %; MCH 27.6 pg (27.0-32.0); MCHC 30.8 g/dL (32.0-37.0); MCV 89.6 fL (80.0-97.0); Mean Platelet Volume 9.5 fL (9.5-12.2); Monocytes # (A) 0.72 X 10*3/uL (0.20-1.00); Monocytes % (A) 21.4 %; NRBC Per 100 WBC 0 /100 WBCS (0.0-0.0); Neutrophils # (A) 2.14 X 10*3/uL (1.80-7.70); Neutrophils % (A) 63.5 %; Platelet Count 332 X 10*3/uL (140-440); RBC 3.66 X 10*6/uL (4.40-5.60); RDW 17.7 % (11.5-14.5); WBC 3.37 X 10*3/uL (4.50-10.00)
[2021-06-17 09:36] LABS: ALT 8 U/L (10-49); AST 13 U/L (14-35); African American GFR (CKD) 105.6 (60.0-200.0); Albumin 2.7 g/dL (3.8-4.9); Albumin/Globulin Ratio 1.13 (1.60-3.17); Alkaline Phosphatase 118 U/L (41-126); BUN/Creat Ratio 21.75 Ratio (12.00-20.00); Blood Urea Nitrogen 17.4 mg/dL (9.0-27.0); Calcium 8.5 mg/dL (8.7-10.3); Carbon Dioxide 29.3 mmol/L (20.0-27.5); Chloride 104 mmol/L (96-109); Globulin 2.4 g/dL (1.6-3.3); Glucose 140 mg/dL (70-110); Non-African American GFR(CKD) 91.1 (60.0-200.0); Potassium 4.1 mmol/L (3.5-5.5); Sodium 141 mmol/L (135-145); Total Bilirubin <0.15 mg/dL (0.30-1.20); Total Protein 5.1 g/dL (6.2-8.2)
[2021-06-17] MEDS: HYDROmorphone 1 MG/ML 1 ML SYRINGE IVP PRN ×2 (09:37→16:40)
--- NOTE | 2021-06-17 09:56 | P.PN ---
Subjective Progress Note Date: 06/17/21 This is a 70-year-old male patient who presented with increased shortness of breath that have been progressively increasing over the past few days. Patient has a known past medical history of esophageal cancer with malignant pleural effusions. Patient recently underwent thoracentesis on both sides in which findings were consistent with cancer cells with primary esophageal cancer. Patient has been following with oncology services in which he is maintained on chemo regime. Patient does have chest wall port in place. Additional medical history includes asthma, cancer, COPD, diabetes mellitus, GERD, hyperlipidemia, hypertension, sleep apnea and anxiety. Chest x-ray was completed showing pleural effusions and pulmonary congestion increased compared to last exam congestive heart failure is probably present. At this time pulmonary, oncology and cardiothoracic surgery has also been consulted plans for Pleurx catheter placement due to recurrent pleural effusions. Current vital signs heart rate 105, respiratory rate 22, blood pressure 132/65 with a pulse ox of 96% on 3 L. On 06/16/2021 patient was seen and examined on the telemetry floor he is alert and oriented 3 in no apparent distress there is no fever or chills no headache or dizziness no chest pain shortness of breath has improved no nausea or vomiting no abdominal pain no diarrhea and no urinary symptoms On 06/17/2021 patient is alert and oriented 3. Plans today for Pleurx catheter placement per cardiothoracic surgery. Patient remains short of breath. Patient denies chest pain. Patient denies nausea vomiting or diarrhea. Patient denies any urinary burning or frequency. Patient is complaining of constipation we'll add Colace Objective - Vital Signs Vital signs: Vital Signs Temp 97.5 F L 06/17/21 02:00 Pulse 84 06/17/21 09:05 Resp 20 06/17/21 07:02 BP 152/92 06/17/21 07:02 Pulse Ox 99 06/17/21 08:53 Intake & Output 06/16/21 06/17/21 06/17/21 18:59 06:59 18:59 Intake Total 1060 Balance 1060 Weight 129.727 kg Intake: IV 100 Intake, IV Titration 160 Amount IV Fluid Continuation 100 160 ml @ 0 mls/hr IV .[facility]- [facility] Rx#:[id number] Oral 800 Other: Voiding Method Toilet Urinal # Voids 7 # Bowel Movements 1 - Exam Head normocephalic Neck supple Lungs diminished bilaterally Heart regular rate and rhythm S1-S2, no rub or gallop Abdomen is soft nontender nondistended positive bowel sounds no hepatosplenomegaly Extremities no edema Neuro alert and orientated to 3 - Labs CBC & Chem 7: 06/17/21 05:34 06/17/21 05:34 Labs: Abnormal Lab Results - Last 24 Hours (Table) 06/16/21 06/16/21 06/16/21 Range/Units 07:21 11:08 16:07 WBC (4.50-10.00) X 10*3/uL RBC (4.40-5.60) X 10*6/uL Hgb (13.0-17.0) g/dL Hct (39.6-50.0) % MCHC (32.0-37.0) g/dL RDW (11.5-14.5) % Lymphocytes # (0.90-5.00) X 10*3/uL Lymphocytes # (Manual) 0.28 L (1.0-4.8) k/uL Eosinophils # (0.04-0.35) X 10*3/uL Carbon Dioxide (20.0-27.5) mmol/L Anion Gap (10.00-18.00) mmol/L BUN/Creatinine Ratio (12.00-20.00) Ratio Glucose (70-110) mg/dL POC Glucose (mg/dL) 180 H 209 H (75-99) mg/dL Calcium (8.7-10.3) mg/dL Total Bilirubin (0.30-1.20) mg/dL AST (14-35) U/L ALT (10-49) U/L Total Protein (6.2-8.2) g/dL Albumin (3.8-4.9) g/dL Albumin/Globulin Ratio (1.60-3.17) g/dL 06/16/21 06/17/21 06/17/21 Range/Units 20:57 05:34 05:34 WBC 3.37 L (4.50-10.00) X 10*3/uL RBC 3.66 L (4.40-5.60) X 10*6/uL Hgb 10.1 L (13.0-17.0) g/dL Hct 32.8 L (39.6-50.0) % MCHC 30.8 L (32.0-37.0) g/dL RDW 17.7 H (11.5-14.5) % Lymphocytes # 0.49 L (0.90-5.00) X 10*3/uL Lymphocytes # (Manual) (1.0-4.8) k/uL Eosinophils # 0.01 L (0.04-0.35) X 10*3/uL Carbon Dioxide 29.3 H (20.0-27.5) mmol/L Anion Gap 7.70 L (10.00-18.00) mmol/L BUN/Creatinine Ratio 21.75 H (12.00-20.00) Ratio Glucose 140 H (70-110) mg/dL POC Glucose (mg/dL) 234 H (75-99) mg/dL Calcium 8.5 L (8.7-10.3) mg/dL Total Bilirubin <0.15 L (0.30-1.20) mg/dL AST 13 L (14-35) U/L ALT 8 L (10-49) U/L Total Protein 5.1 L (6.2-8.2) g/dL Albumin 2.7 L (3.8-4.9) g/dL Albumin/Globulin Ratio 1.13 L (1.60-3.17) g/dL 06/17/21 06/17/21 Range/Units 06:00 06:54 WBC (4.50-10.00) X 10*3/uL RBC (4.40-5.60) X 10*6/uL Hgb (13.0-17.0) g/dL Hct (39.6-50.0) % MCHC (32.0-37.0) g/dL RDW (11.5-14.5) % Lymphocytes # (0.90-5.00) X 10*3/uL Lymphocytes # (Manual) (1.0-4.8) k/uL Eosinophils # (0.04-0.35) X 10*3/uL Carbon Dioxide (20.0-27.5) mmol/L Anion Gap (10.00-18.00) mmol/L BUN/Creatinine Ratio (12.00-20.00) Ratio Glucose (70-110) mg/dL POC Glucose (mg/dL) 125 H 131 H (75-99) mg/dL Calcium (8.7-10.3) mg/dL Total Bilirubin (0.30-1.20) mg/dL AST (14-35) U/L ALT (10-49) U/L Total Protein (6.2-8.2) g/dL Albumin (3.8-4.9) g/dL Albumin/Globulin Ratio (1.60-3.17) g/dL Assessment and Plan Assessment: 1. Shortness of breath secondary to bilateral pleural effusions 2. Metastatic esophageal cancer with positive pleural fluid cytology. Patient currently receiving chemotherapy follows with oncology services as well as esophageal stent on 03/01/[address] Flores 3. Reoccurring pleural effusions 4. History of COPD 5. History of GERD 6. History of essential hypertension 7. History of hyperlipidemia 8. History of diabetes mellitus 9. Constipation Colace added DVT prophylaxis SCDs due to plans for Pleurex catheter placement. GI prophylaxis Protonix Pulmonary, cardiothoracic and oncology service is consulted Plans for Pleurx catheter placement per cardiothoracic surgery 06/17/2021 Repeat labs ordered
[2021-06-17] MEDS: DOCUSATE 100 MG CAP PO SCH (09:59)
[2021-06-17 11:15] LABS: Glucose,Whole Blood 97 mg/dL (75-99)
[2021-06-17] MEDS ORDERED: DEXTROSE 5% IN WATER 1,000 ML IV ONE (11:43)
--- NOTE | 2021-06-17 12:15 | P.PN ---
Subjective Progress Note Date: 06/17/21 This is a 70-year-old male with a history of esophageal cancer. About a month ago, the patient was hospitalized with bilateral pleural effusions. He had a thoracentesis performed on both sides, and the cytology on the right-sided effusion, with positive for cancer cells, consistent with his primary esophageal cancer. The patient is readmitted to the hospital because of shortness of breath. He seen in the emergency room on June 15. In my opinion, the patient is best served by having a Pleurx catheter placed. The patient has a history of COPD, esophageal cancer, diabetes, GERD, hyperlipidemia, hypertension, osteoarthritis, and sleep apnea. He does use CPAP for his sleep apnea syndrome. White count 3.7, hemoglobin 11.3, hematocrit 38.4, and platelet count 319,000. Sodium, potassium, chloride, CO2, BUN, and creatinine are all normal and glucose is 107. Albumin 2.6. Chest x-ray shows bilateral right and left effusions. Cardiothoracic surgery was consulted for placement of a Pleurx catheter. On 06/16/2021 patient seen in follow-up on medical surgical floor. He is awake, in no acute distress, he states he still feels short of breath with any exertion, but no acute distress. She is on 4 L of oxygen pulse ox is 98%, no complaints of chest discomfort. Occasional cough, no phlegm production, no fever or chills, patient was scheduled for a Pleurx catheter insertion by CT surgery, however this was rescheduled until tomorrow. Patient's in the meantime continues on inhaled and nebulized bronchodilators. His COPD is stable. She did develop significant lower extremity edema, he was given some IV fluids in the emergency department during initial presentation. Today's labs have been reviewed showing white blood cell, 4.7, hemoglobin of 11, sodium is 137, potassium is 4.2, chloride is 104, CO2 31, BUN is 19, creatinine 0.68. The patient is seen today 06/17/2021 in follow-up on the regular medical floor. He is currently sitting up in bed. Awake and alert in no acute distress. He is quite dyspneic with minimal exertion. Maintaining O2 saturations in the 90s on room air. He did utilize his own CPAP last night. White count 3.3. Hemoglobin 10.1. Sodium 141. Potassium 4.1. BUN 17. Creatinine 0.8. AST 13. ALT 8. Glucose 140. Plan is for a right-sided Pleurx catheter insertion today. He remains on DuoNeb inhalations, Symbicort Objective - Vital Signs Vital signs: Vital Signs Temp 97.5 F L 06/17/21 02:00 Pulse 84 06/17/21 09:05 Resp 20 06/17/21 07:02 BP 152/92 06/17/21 07:02 Pulse Ox 99 06/17/21 08:53 Intake & Output 06/16/21 06/17/21 06/17/21 18:59 06:59 18:59 Intake Total 1060 Balance 1060 Weight 129.727 kg Intake: IV 100 Intake, IV Titration 160 Amount IV Fluid Continuation 100 160 ml @ 0 mls/hr IV .[employer] ONE Rx#:[id number] Oral 800 Other: Voiding Method Toilet Urinal # Voids 7 # Bowel Movements 1 - Exam GENERAL EXAM: Alert, pleasant, 70-year-old male, on room air, comfortable in no apparent distress. HEAD: Normocephalic/atraumatic. EYES: Normal reaction of pupils, equal size. Conjunctiva pink, sclera white. NOSE: Clear with pink turbinates. THROAT: No erythema or exudates. NECK: No masses, no JVD, no thyroid enlargement, no adenopathy. CHEST: No chest wall deformity. Symmetrical expansion. LUNGS: Diminished breath sounds at the bases, and bibasilar crackles, right greater than left CVS: Regular rate and rhythm, normal S1 and S2, no gallops, no murmurs, no rubs ABDOMEN: Soft, nontender. No hepatosplenomegaly, normal bowel sounds, no guarding or rigidity. EXTREMITIES: No clubbing, 2 plus lower extremity edema no cyanosis, 2+ pulses and upper and lower extremities. MUSCULOSKELETAL: Muscle strength and tone normal. SPINE: No scoliosis or deformity SKIN: No rashes CENTRAL NERVOUS SYSTEM: No focal deficits, tone is normal in all 4 extremities. PSYCHIATRIC: Alert and oriented -3. Appropriate affect. Intact judgment and insight. - Labs CBC & Chem 7: 06/17/21 05:34 06/17/21 05:34 Labs: Abnormal Lab Results - Last 24 Hours (Table) 06/16/21 06/16/21 06/17/21 Range/Units 16:07 20:57 05:34 WBC 3.37 L (4.50-10.00) X 10*3/uL RBC 3.66 L (4.40-5.60) X 10*6/uL Hgb 10.1 L (13.0-17.0) g/dL Hct 32.8 L (39.6-50.0) % MCHC 30.8 L (32.0-37.0) g/dL RDW 17.7 H (11.5-14.5) % Lymphocytes # 0.49 L (0.90-5.00) X 10*3/uL Eosinophils # 0.01 L (0.04-0.35) X 10*3/uL Carbon Dioxide (20.0-27.5) mmol/L Anion Gap (10.00-18.00) mmol/L BUN/Creatinine Ratio (12.00-20.00) Ratio Glucose (70-110) mg/dL POC Glucose (mg/dL) 209 H 234 H (75-99) mg/dL Calcium (8.7-10.3) mg/dL Total Bilirubin (0.30-1.20) mg/dL AST (14-35) U/L ALT (10-49) U/L Total Protein (6.2-8.2) g/dL Albumin (3.8-4.9) g/dL Albumin/Globulin Ratio (1.60-3.17) g/dL 06/17/21 06/17/21 06/17/21 Range/Units 05:34 06:00 06:54 WBC (4.50-10.00) X 10*3/uL RBC (4.40-5.60) X 10*6/uL Hgb (13.0-17.0) g/dL Hct (39.6-50.0) % MCHC (32.0-37.0) g/dL RDW (11.5-14.5) % Lymphocytes # (0.90-5.00) X 10*3/uL Eosinophils # (0.04-0.35) X 10*3/uL Carbon Dioxide 29.3 H (20.0-27.5) mmol/L Anion Gap 7.70 L (10.00-18.00) mmol/L BUN/Creatinine Ratio 21.75 H (12.00-20.00) Ratio Glucose 140 H (70-110) mg/dL POC Glucose (mg/dL) 125 H 131 H (75-99) mg/dL Calcium 8.5 L (8.7-10.3) mg/dL Total Bilirubin <0.15 L (0.30-1.20) mg/dL AST 13 L (14-35) U/L ALT 8 L (10-49) U/L Total Protein 5.1 L (6.2-8.2) g/dL Albumin 2.7 L (3.8-4.9) g/dL Albumin/Globulin Ratio 1.13 L (1.60-3.17) g/dL Assessment and Plan Assessment: 1 Acute on chronic hypoxic respiratory failure related to bilateral pleural effusions, right greater than left. Patient scheduled for right Pleurx catheter insertion today 2 Metastatic adenocarcinoma of the esophagus diagnosed on 02/03/[address] chemo and radiation therapy 3 Recent hospitalization for right pleural effusion, status post right-sided thoracentesis on 05/10/2021 with removal of 2 L of exudative fluid and the pleural fluid was positive for metastatic adenocarcinoma of the esophagus primary. Patient had left-sided thoracentesis on 05/11/2021 with removal of 650 mL of pleural fluid which was also positive for metastatic adenocarcinoma 4 Chronic dysphagia 5 History of COPD 6 Diabetes mellitus type 2 7 Hypertension 8 Hyperlipidemia 9 Osteoarthritis 10 Sleep apnea on home CPAP 11 Anxiety Plan: The patient was seen and evaluated Still with dyspnea on exertion Plan is for Pleurx catheter insertion to the right chest today We'll continue to follow I have personally seen and examined the patient, performed the documentation and the assessment and plan as written. Number of minutes spent on the visit: 10.
--- NOTE | 2021-06-17 12:58 | CDI ---
Documentation Clarification Form Date: 06/17/2021 12:46:39 PM From: Bhavana Beck CCS, CCDS Admit Date: 06/15/2021 04:39:00 AM Patient Name: Xiang Pimentel Visit Number: [id number] Discharge Date: ATTENTION: The Clinical Documentation Specialists (CDI) and [facility] Coding Staff appreciate your assistance in clarifying documentation. Please respond to the clarification below the line at the bottom and electronically sign. The CDI & [facility] Coding staff will review the response and follow-up if needed. Please note: Queries are made part of the Legal Health Record. If you have any questions, please contact the author of this message via ITS. Dr. Michell Soriano: Congestive Heart Failure is documented in the 06/15 CXR: CHF is probably present. Also documented in the 06/15 H/P and subsequent Attending Physician Progress Notes: Chest x-ray was completed showing pleural effusions and pulmonary congestion increased compared to last exam congestive heart failure is probably present. Additional information regarding the [type, acuity] of CHF is requested. History/Risk Factors per the 06/15 H/P: Primary Esophageal Cancer status post surgery w/stent and recurrent Malignant Pleural Effusions, Asthma, COPD, DM, GERD, Hypertension, Sleep apnea, Anxiety and Former smoker. Clinical Indicators: Presented to the ED on 06/15 with SOB, mild CP, generalized body pain and cough. Admit with Acute respiratory failure with hypoxia, Esophageal Cancer, COPD, Recurrent right pleural effusion. 06/15 VS: T 97.8, P 98, R 18 - 28 (sob, labored, tachypnea), BP 128/83, PO 96 RA - 98 2Lnc, BMI: 353.7 06/15 LAB: WBC 3.7, RBC 4.20, Hgb 11.3, Hct 38.4, Lymph 0.85; APTT 20.5; Glucose 107, Alk Phos 152, total Protein 5.6, Albumin 2.6 06/15 BNP 204 06/15 CXR: Pleural effusions and pulmonary congestion increased. CHF is probably present. Echocardiogram Results: No documented ECHO. Treatment 06/15: O2 2Lnc, INH Duoneb, IV Solumedrol 125 mg x1, IV Dilaudid 1 mg x2, IV Zofran 4 mg x1 06/16: IV Lasix 40 mg x1, no home Lasix In your professional opinion, can you please clarify the Acuity & Type of CHF if known? [ ] Acute Systolic Heart Failure (reduced EF) [ ] Chronic Systolic Heart Failure (reduced EF) [ ] Acute on Chronic Systolic Heart Failure (reduced EF) [ ] Acute Diastolic Heart Failure (preserved EF) [ ] Chronic Diastolic Heart Failure (preserved EF) [ ] Acute on Chronic Diastolic Heart Failure (preserved EF) [ ] Acute Systolic & Diastolic Heart Failure [ ] Chronic Systolic & Diastolic Heart Failure [ ] Acute on Chronic Heart Failure Systolic & Diastolic Heart Failure [ xxx ] Congestive Heart Failure is ruled out [ ] Other, please specify [ ] Unable to determine (Template Last Revised: March 2020) MTDD
--- NOTE | 2021-06-17 13:05 | CDI ---
Documentation Clarification Form Date: 06/17/2021 12:59:04 PM From: Bhavana Beck CCS, CCDS Admit Date: 06/15/2021 04:39:00 AM Patient Name: Xiang Pimentel Visit Number: [id number] Discharge Date: ATTENTION: The Clinical Documentation Specialists (CDI) and [facility] Coding Staff appreciate your assistance in clarifying documentation. Please respond to the clarification below the line at the bottom and electronically sign. The CDI & [facility] Coding staff will review the response and follow-up if needed. Please note: Queries are made part of the Legal Health Record. If you have any questions, please contact the author of this message via ITS. Dr. Michell Soriano: Per the Registered Dietitian assessment on 06/16 indicates this patient meets criteria for Severe Malnutrition. . Based on this information and the findings below, is there an additional diagnosis that is clinically appropriate for this patient? History/Risk Factors per the 06/15 H/P: Primary Esophageal Cancer status post surgery w/stent (offered PEG tube) and recurrent Malignant Pleural Effusions, Asthma, COPD, DM, GERD, Hypertension, Sleep apnea, Anxiety and Former smoker. Clinical Indicators: Presented to the ED on 06/15 with SOB, mild CP, generalized body pain and cough. Admit with Acute respiratory failure with hypoxia, Esophageal Cancer, COPD, Recurrent right pleural effusion. 06/15 VS: T 97.8, P 98, R 18 - 28 (sob, labored, tachypnea), BP 128/83, PO 96 RA - 98 2Lnc, BMI: 353.7 06/15 LAB: WBC 3.7, RBC 4.20, Hgb 11.3, Hct 38.4, Lymph 0.85; APTT 20.5; Glucose 107, Alk Phos 152, total Protein 5.6, Albumin 2.6 06/15 BNP 204 06/15 CXR: Pleural effusions and pulmonary congestion increased. CHF is probably present. Nutrition Assessment 06/16: Nutrition Intake Fair consumed 50-75%. Oral supplements: Glucerna TIA 220 Kcal/serving, 10 gm Protein Weight 129.727 kg. Height 6 ft 3 in. Overweight BMI: 35.7 Francois IBW: 89.1 kg. %IBW: 146%. Weight loss: 25.3 kg due to decreased Intake. Increased metabolic demand due to chemo/radiation. Treatment 06/15: O2 2Lnc, INH Duoneb, IV Solumedrol 125 mg x1, IV Dilaudid 1 mg x2, IV Zofran 4 mg x1 06/16: IV Lasix 40 mg x1, no home Lasix Is there an additional diagnosis that is clinically appropriate for this patient? [ ] Mild Protein-Calorie Malnutrition [ ] Moderate Protein-Calorie Malnutrition [ xxx ] Severe Protein-Calorie Malnutrition [ ] Other condition, please specify [ ] Unable to Determine (Template Last Revised: April 2020) MTDD
[2021-06-17] MEDS: diphenhydrAMINE 25 MG CAP PO SCH ×4 (13:40→21:55)
[2021-06-17] MEDS: HYDROcodone/APAP 15 ML SOLUTION PO SCH ×4 (13:40→21:55)
[2021-06-17] MEDS: SUCRALFATE 1 GM TAB PO SCH ×4 (13:41→21:55)
[2021-06-17] MEDS: IBUPROFEN ORAL SUSP 2,400 MG/120 ML BOTTLE PO SCH ×5 (13:41→21:54)
[2021-06-17] MEDS: MAG HYDROX/AL HYDROX/SIMETH 30 ML, diphenhydrAMINE ELIXIR 75 MG, LIDOCAINE VISCOUS 2% 3... PO SCH ×12 (13:42→21:54)
[2021-06-17 16:40] LABS: Glucose,Whole Blood 108 mg/dL (75-99)
[2021-06-17] MEDS ORDERED: KETAMINE 10 MG/ML 20 ML VIAL ONE (18:36)
[2021-06-17] MEDS ORDERED: MIDAZOLAM 2 MG/2 ML VIAL ONE (18:36)
[2021-06-17] MEDS ORDERED: PROPOFOL 10 MG/ML 20 ML VIAL IV ONE (18:36)
[2021-06-17] MEDS ORDERED: LACTATED RINGERS 1,000 ML IV ONE (18:36)
[2021-06-17] MEDS ORDERED: SODIUM CHLORIDE 0.9% 100 ML with ceFAZolin 2,000 MG IV ONE ×2 (18:38)
[2021-06-17] MEDS ORDERED: LIDOCAINE 2% INJ 20 MG/ML SQ ONE (18:51)
--- NOTE | 2021-06-17 19:22 | P.OP ---
Date of Procedure: 06/17/21 Postoperative Diagnosis: Recurrent malignant right pleural effusion Procedure(s) Performed: Same Implants: PleurX Anesthesia: local Surgeon: Kelvin Richardson Estimated Blood Loss (ml): 5 Pathology: other (pleural fluid for cytology) Condition: stable Disposition: PACU Indications for Procedure: This patient is a 70 year-old male with a known history of esophageal cancer who presented to the emergency room with shortness of breath. He was found to have a recurrent pleural effusion on the right which had been previously drained and sampled. Previous cytology has been positive for metastatic adenocarcinoma. He now requires repeat drainage and meets criteria for pleurX placement. Operative Findings: Catheter placement confirmed with flouroscopy and 1500cc of straw colored fluid drained from right chest. Description of Procedure: The patient was brought to the operating room and placed in the supine position. He was sedated and his right chest was prepped and draped in the usual sterile fashion. 2% lidocaine was used to anesthetize the skin in two separate areas. The introducer needle was inserted over the 6th rib and pleural fluid was withdrawn. The guidewire was inserted and correct placement was checked with fluoroscopy. The catheter was then tunnel and inserted into the chest via the dilator sheath provided. This was also done under fluoroscopic guidance. The catheter was attached to suction and some fluid was sent to cytology. The skin was closed using 4-0 vicryl and dermabond glue. The catheter was sutured to the skin using silk suture. The patient tolerated the procedure well and was transferred to recovery.
[2021-06-17] MEDS: MELOXICAM 7.5 MG TAB PO SCH (19:47)
--- NOTE | 2021-06-17 19:59 | XR ---
EXAMINATION TYPE: XR chest 1V portable DATE OF EXAM: 06/17/2021 COMPARISON: 06/15/2021 HISTORY: Tube placement TECHNIQUE: Single view FINDINGS: There is right-sided chest tube with the tip over the medial right upper lobe. There is mod erate bilateral pleural effusions and larger on the right side. Pleural fluid improved on the right s maxim compared to exam on 06/15/2021. No heart failure seen. There is right central venous catheter with tip in the superior vena cava. No pneumothorax. IMPRESSION: There is improvement in the right pleural effusion. No heart failure. Stable mild left pl eural effusion.
--- NOTE | 2021-06-17 20:07 | P.PN ---
Subjective Progress Note Date: 06/17/21 Principal diagnosis: SOB recurrent effusion Plan for palliaitive intent pleurex cath right pleural lung space today He did have episode of hypoxia since last visit, quickly resolved. Objective - Vital Signs Vital signs: Vital Signs Temp 97.3 F L 06/17/21 14:00 Pulse 87 06/17/21 14:00 Resp 21 06/17/21 14:00 BP 135/80 06/17/21 14:00 Pulse Ox 98 06/17/21 14:00 Intake & Output 06/16/21 06/17/21 06/17/21 18:59 06:59 18:59 Intake Total 1060 Balance 1060 Weight 129.727 kg Intake: IV 100 Intake, IV Titration 160 Amount IV Fluid Continuation 100 160 ml @ 0 mls/hr IV .[employer] ONE Rx#:[id number] Oral 800 Other: Voiding Method Toilet Urinal # Voids 7 # Bowel Movements 1 - Exam - Constitutional General appearance: Present: cooperative, morbidly obese, no acute distress - EENT Eyes: Present: anicteric sclerae, EOMI ENT: Present: hearing grossly normal, normal oropharynx - Respiratory Respiratory: bilateral: other (Lower two thirds of the right lung lung and lower third of left lung absent breath sounds) - Cardiovascular Rhythm: regular Heart sounds: normal: S1, S2 Abnormal Heart Sounds: Absent: systolic murmur, diastolic murmur, rub, S3 Gallop, S4 Gallop, click, other - Peripheral edema leg Peripheral Edema: bilateral: None - Gastrointestinal General gastrointestinal: Present: normal bowel sounds, soft. Absent: absent bowel sounds, decreased bowel sounds, distended, hepatomegaly, hyperactive bowel sounds, organomegaly, rigid, scaphoid, splenomegaly, tenderness, umbilical hernia, ventral hernia - Integumentary Integumentary: Present: pale - Neurologic Neurologic: Present: CNII-XII intact - Musculoskeletal Musculoskeletal: Present: generalized weakness - Psychiatric Psychiatric: Present: A&O x's 3, appropriate affect, intact judgment & insight - Labs CBC & Chem 7: 06/17/21 05:34 06/17/21 05:34 Labs: Abnormal Lab Results - Last 24 Hours (Table) 06/16/21 06/16/21 06/17/21 Range/Units 16:07 20:57 05:34 WBC 3.37 L (4.50-10.00) X 10*3/uL RBC 3.66 L (4.40-5.60) X 10*6/uL Hgb 10.1 L (13.0-17.0) g/dL Hct 32.8 L (39.6-50.0) % MCHC 30.8 L (32.0-37.0) g/dL RDW 17.7 H (11.5-14.5) % Lymphocytes # 0.49 L (0.90-5.00) X 10*3/uL Eosinophils # 0.01 L (0.04-0.35) X 10*3/uL Carbon Dioxide (20.0-27.5) mmol/L Anion Gap (10.00-18.00) mmol/L BUN/Creatinine Ratio (12.00-20.00) Ratio Glucose (70-110) mg/dL POC Glucose (mg/dL) 209 H 234 H (75-99) mg/dL Calcium (8.7-10.3) mg/dL Total Bilirubin (0.30-1.20) mg/dL AST (14-35) U/L ALT (10-49) U/L Total Protein (6.2-8.2) g/dL Albumin (3.8-4.9) g/dL Albumin/Globulin Ratio (1.60-3.17) g/dL 06/17/21 06/17/21 06/17/21 Range/Units 05:34 06:00 06:54 WBC (4.50-10.00) X 10*3/uL RBC (4.40-5.60) X 10*6/uL Hgb (13.0-17.0) g/dL Hct (39.6-50.0) % MCHC (32.0-37.0) g/dL RDW (11.5-14.5) % Lymphocytes # (0.90-5.00) X 10*3/uL Eosinophils # (0.04-0.35) X 10*3/uL Carbon Dioxide 29.3 H (20.0-27.5) mmol/L Anion Gap 7.70 L (10.00-18.00) mmol/L BUN/Creatinine Ratio 21.75 H (12.00-20.00) Ratio Glucose 140 H (70-110) mg/dL POC Glucose (mg/dL) 125 H 131 H (75-99) mg/dL Calcium 8.5 L (8.7-10.3) mg/dL Total Bilirubin <0.15 L (0.30-1.20) mg/dL AST 13 L (14-35) U/L ALT 8 L (10-49) U/L Total Protein 5.1 L (6.2-8.2) g/dL Albumin 2.7 L (3.8-4.9) g/dL Albumin/Globulin Ratio 1.13 L (1.60-3.17) g/dL Assessment and Plan Plan: Assessment and Plan (1) Esophageal cancer Current Visit: Yes Status: Acute Priority: High Code(s): C15.9 - MALIGNANT NEOPLASM OF ESOPHAGUS, UNSPECIFIED SNOMED Code(s): 802384237 - will continue on cancer treatments outpatient after recovery (2) Recurrent right pleural effusion Current Visit: Yes Status: Acute Priority: High Code(s): J90 - PLEURAL EFFUSION, NOT ELSEWHERE CLASSIFIED SNOMED Code(s): 54658726 Pulmonary and Cardiothoracic Surgery, plan pleurex drain for pt comfort and quality of life is reasonable. Plan: Continue daily CBC and supportive care Await Pleurex Repeat Cytology on PLeural fluid today - Has been on treatment and would like to see response Dr. Amaya: I have completed the full history and physical and developed the above impression and plan, agree with dictation, dictated as a scribe
[2021-06-17 20:58] LABS: Glucose,Whole Blood 110 mg/dL (75-99)
[2021-06-17] MEDS: EZETIMIBE 10 MG TAB PO SCH (21:55)
[2021-06-17] MEDS: ATORVASTATIN 10 MG TAB PO SCH (21:55)
[2021-06-17] MEDS: OLANZapine 5 MG TAB PO SCH (21:55)
[2021-06-18] MEDS: MAG HYDROX/AL HYDROX/SIMETH 30 ML, diphenhydrAMINE ELIXIR 75 MG, LIDOCAINE VISCOUS 2% 3... PO SCH ×15 (00:14→16:38)
[2021-06-18] MEDS: IBUPROFEN ORAL SUSP 2,400 MG/120 ML BOTTLE PO SCH ×5 (00:14→16:37)
[2021-06-18] MEDS: IPRATROPIUM-ALBUTEROL 3 ML NEB INHALATION SCH ×4 (04:39→15:46)
[2021-06-18] MEDS: HYDROcodone/APAP 15 ML SOLUTION PO SCH ×3 (04:42→16:36)
[2021-06-18] MEDS: SUCRALFATE 1 GM TAB PO SCH ×3 (04:43→16:36)
[2021-06-18] MEDS: diphenhydrAMINE 25 MG CAP PO SCH ×3 (04:43→16:36)
[2021-06-18] MEDS: glipiZIDE 5 MG TAB PO SCH (05:55)
[2021-06-18] MEDS: LORATADINE 10 MG TAB PO SCH (06:00)
[2021-06-18] MEDS: ALPRAZolam 0.25 MG TAB PO SCH ×2 (06:00→12:43)
[2021-06-18] MEDS: METOPROLOL SUCCINATE (ER) 50 MG TAB.ER.24H PO SCH (06:00)
[2021-06-18] MEDS: PANTOPRAZOLE SODIUM 40 MG GRANULE PKT PO SCH (06:00)
[2021-06-18] MEDS: ARTIFICIAL TEARS-HYPROMELLOSE DROPS 15 ML BTL BOTH EYES SCH (06:01)
[2021-06-18] MEDS: FLUTICASONE 50MCG/SPRAY NASAL 16GM EA NOSTRIL SCH (06:01)
[2021-06-18 06:55] LABS: Glucose,Whole Blood 102 mg/dL (75-99)
[2021-06-18] MEDS: INSULIN ASPART (NovoLOG) 100 UNIT/ML VIAL SQ SCH ×3 (07:10→17:40)
[2021-06-18] MEDS: SYMBICORT 80-4.5 MCG INHALER INHALATION SCH (07:27)
--- NOTE | 2021-06-18 08:09 | XR ---
EXAMINATION TYPE: XR chest 1V portable DATE OF EXAM: 06/18/2021 Comparison: 06/17/2021 Clinical History: 70-year-old male post pleurx placement Findings: Right anterior chest wall injection port with catheter subclavian approach. Catheter tip at the expec isaac brachiocephalic vein confluence. The previous right-sided catheter appears to have been repositio sosa. It is now located at the right base and at least one sidehole is outside the thoracic cage, outs maxim the pleural space. Correlation as to the catheter has been inadvertently pulled out. Heart remain s enlarged. Continued [id number] bilateral pleural effusions, right greater than left with bib asilar opacities. Impression: 1. Correlate as to if the right-sided Pleurx catheter has inadvertently been pulled out. At least one sidehole is outside the thoracic cage and the catheter is now located at the right base. 2. Continued small to moderate pleural effusions with adjacent atelectasis and or consolidation, righ t greater than left. 3. Ongoing cardiomegaly.
[2021-06-18 08:41] VITALS: RESP 18
[2021-06-18] MEDS: DICYCLOMINE 10 MG CAP PO SCH (08:41)
[2021-06-18] MEDS: DOCUSATE 100 MG CAP PO SCH (08:41)
--- NOTE | 2021-06-18 09:21 | FL ---
EXAMINATION TYPE: FL guidance operating room DATE OF EXAM: 06/17/2021 FLUOROSCOPY Fluoroscopy time of 17 seconds was used during right-sided Pleurx catheter placement. 2 image/s docu ment/s the procedure.
--- NOTE | 2021-06-18 10:59 | P.PN ---
Subjective Progress Note Date: 06/18/21 Principal diagnosis: Recurrent malignant bilateral pleural effusions, right greater than left, progressive shortness of breath. Previous medical history of metastatic esophageal cancer, receiving radiation therapy, status post esophageal stent placed 03/01/[address] Cesar Sheehan, hypertension, hyperlipidemia, obstructive sleep apnea with use, GERD, diabetes, never smoker POD #1 placement of right-sided Pleurx catheter with removal of 1500 mL straw- colored fluid, sent for cytology The patient was seen and examined this morning sitting up in bed in no acute distress. Denies pain currently, states shortness of breath has decreased since placement of Pleurx yesterday. Currently on room air with oxygen saturation 95%. Pleurx catheter drained for another 800 mL blood-tinged fluid. No other new concerns. Objective - Vital Signs Vital signs: Vital Signs Temp 97.5 F L 06/18/21 08:00 Pulse 82 06/18/21 08:00 Resp 18 06/18/21 08:00 BP 114/76 06/18/21 08:00 Pulse Ox 95 06/18/21 08:00 Intake & Output 06/17/21 06/18/21 06/18/21 18:59 06:59 18:59 Intake Total 200 Output Total 1505 Balance 200 -1505 Intake: IV 200 Output: Pleural Fluid 1500 Estimated Blood Loss 5 Other: Voiding Method Toilet Urinal # Voids 4 4 - Exam CONSTITUTIONAL: Appears comfortable, cooperative, no acute distress RESPIRATORY: Lungs sounds diminished bilaterally. Respirations even, nonlabored. Currently on room air with oxygen saturation 95%. Able to achieve 1500 mL on incentive spirometry. Strong cough. Right-sided Pleurx catheter present CARDIOVASCULAR: S1, S2 present. Regular rate and rhythm. Palpable peripheral pulses bilaterally. Trace bilateral lower extremity edema present. No calf pain or tenderness noted. GASTROINTESTINAL: Abdomen soft, nontender, nondistended. Active bowel sounds present 4 quadrants. GENITOURINARY: Continues to void INTEGUMENTARY: Skin is warm and dry NEUROLOGIC: Cranial nerves II through XII intact MUSKULOSKELETAL: Able to move all extremities, strength equal bilaterally, gait normal PSYCHIATRIC: Alert and oriented to person place and time, appropriate affect, intact judgment and insight - Allied health notes Allied health notes reviewed: nursing - Labs CBC & Chem 7: 06/17/21 05:34 06/17/21 05:34 Labs: Abnormal Lab Results - Last 24 Hours (Table) 06/17/21 06/17/21 06/18/21 Range/Units 16:38 20:56 06:54 POC Glucose (mg/dL) 108 H 110 H 102 H (75-99) mg/dL - Imaging and Cardiology Chest x-ray: report reviewed, image reviewed Assessment and Plan Assessment: 1. Recurrent malignant bilateral pleural effusions, right greater than left, status post right sided Pleurx catheter placement 2. Progressive shortness of breath secondary to above 3. History of metastatic esophageal cancer, receiving radiation therapy, status post esophageal stent placed 03/01/[address] Cesar Sheehan 4. History of hypertension 5. History of hyperlipidemia 6. Obstructive sleep apnea with use 7. GERD 8. Diabetes 9. Never smoker Plan: 1. Pleurx catheter drained again this morning. Patient's was present, teaching completed for both patient and regarding drainage 2. Encourage incentive spirometry use 10 times every hour while awake. Bronchodilators per pulmonology 3. Increase activity as tolerated 4. Medical management of other comorbidities per primary care, oncology, pulmon ology 5. Patient cleared for discharge from our standpoint. Discharge instructions placed on the patient's discharge plan
[2021-06-18 11:16] LABS: Basophils # (A) 0.03 X 10*3/uL (0.00-0.10); Basophils % (A) 0.9 %; Eosinophils # (A) 0.11 X 10*3/uL (0.04-0.35); Eosinophils % (A) 3.2 %; HCT 34.3 % (39.6-50.0); HGB 10.2 g/dL (13.0-17.0); Immature Grans, Automated 0.9 %; Lymphocytes # (A) 0.67 X 10*3/uL (0.90-5.00); Lymphocytes % (A) 19.8 %; MCH 27.1 pg (27.0-32.0); MCHC 29.7 g/dL (32.0-37.0); Mean Platelet Volume 9.3 fL (9.5-12.2); Monocytes # (A) 0.83 X 10*3/uL (0.20-1.00); Monocytes % (A) 24.5 %; NRBC Per 100 WBC 0 /100 WBCS (0.0-0.0); Neutrophils # (A) 1.72 X 10*3/uL (1.80-7.70); Neutrophils % (A) 50.7 %; Platelet Count 374 X 10*3/uL (140-440); RBC 3.77 X 10*6/uL (4.40-5.60); RDW 17.8 % (11.5-14.5); WBC 3.39 X 10*3/uL (4.50-10.00)
--- NOTE | 2021-06-18 11:23 | P.PN ---
Subjective Progress Note Date: 06/18/21 This is a 70-year-old male with a history of esophageal cancer. About a month ago, the patient was hospitalized with bilateral pleural effusions. He had a thoracentesis performed on both sides, and the cytology on the right-sided effusion, with positive for cancer cells, consistent with his primary esophageal cancer. The patient is readmitted to the hospital because of shortness of breath. He seen in the emergency room on June 15. In my opinion, the patient is best served by having a Pleurx catheter placed. The patient has a history of COPD, esophageal cancer, diabetes, GERD, hyperlipidemia, hypertension, osteoarthritis, and sleep apnea. He does use CPAP for his sleep apnea syndrome. White count 3.7, hemoglobin 11.3, hematocrit 38.4, and platelet count 319,000. Sodium, potassium, chloride, CO2, BUN, and creatinine are all normal and glucose is 107. Albumin 2.6. Chest x-ray shows bilateral right and left effusions. Cardiothoracic surgery was consulted for placement of a Pleurx catheter. On 06/16/2021 patient seen in follow-up on medical surgical floor. He is awake, in no acute distress, he states he still feels short of breath with any exertion, but no acute distress. She is on 4 L of oxygen pulse ox is 98%, no complaints of chest discomfort. Occasional cough, no phlegm production, no fever or chills, patient was scheduled for a Pleurx catheter insertion by CT surgery, however this was rescheduled until tomorrow. Patient's in the meantime continues on inhaled and nebulized bronchodilators. His COPD is stable. She did develop significant lower extremity edema, he was given some IV fluids in the emergency department during initial presentation. Today's labs have been reviewed showing white blood cell, 4.7, hemoglobin of 11, sodium is 137, potassium is 4.2, chloride is 104, CO2 31, BUN is 19, creatinine 0.68. The patient is seen today 06/17/2021 in follow-up on the regular medical floor. He is currently sitting up in bed. Awake and alert in no acute distress. He is quite dyspneic with minimal exertion. Maintaining O2 saturations in the 90s on room air. He did utilize his own CPAP last night. White count 3.3. Hemoglobin 10.1. Sodium 141. Potassium 4.1. BUN 17. Creatinine 0.8. AST 13. ALT 8. Glucose 140. Plan is for a right-sided Pleurx catheter insertion today. He remains on DuoNeb inhalations, Symbicort The patient is seen today 06/18/2021 in follow-up on the regular medical floor. Currently sitting up at the bedside. Awake and alert in no acute distress. He did undergo a right-sided Pleurx catheter placement yesterday. Today's chest x- ray shows some concern regarding the Pleurx catheter possibly pulled back with one sidehole outside the thoracic cage and the catheter located at the right lung base. Continue small to moderate pleural effusions with adjacent atelectasis. Right greater than left. Cardiomegaly. Initial fluid removed yesterday 1500 ML's of straw colored fluid sent for cytology. Today another 800 of blood-tinged fluid removed per CT services. He is encouraged regarding the increased use the incentive spirometer. He remains on Symbicort, albuterol. He remains on 2 L/m per nasal cannula. He was tested for home oxygen and did desaturate to 71% on room air with exercise. Recovered back into the 90s on 3 L/m per nasal cannula. White count 3.3. Hemoglobin 10.2. Glucose 102. Objective - Vital Signs Vital signs: Vital Signs Temp 97.5 F L 06/18/21 08:00 Pulse 89 06/18/21 10:55 Resp 18 06/18/21 08:00 BP 114/76 06/18/21 08:00 Pulse Ox 97 06/18/21 10:55 Intake & Output 06/17/21 06/18/21 06/18/21 18:59 06:59 18:59 Intake Total 200 Output Total 1505 Balance 200 -1505 Intake: IV 200 Output: Pleural Fluid 1500 Estimated Blood Loss 5 Other: Voiding Method Toilet Urinal # Voids 4 4 - Exam GENERAL EXAM: Alert, 70-year-old male, on 2 L/m per nasal cannula, comfortable in no apparent distress. HEAD: Normocephalic/atraumatic. EYES: Normal reaction of pupils, equal size. Conjunctiva pink, sclera white. NOSE: Clear with pink turbinates. THROAT: No erythema or exudates. NECK: No masses, no JVD, no thyroid enlargement, no adenopathy. CHEST: No chest wall deformity. Symmetrical expansion. LUNGS: Diminished breath sounds at the bases, and bibasilar crackles, right greater than left CVS: Regular rate and rhythm, normal S1 and S2, no gallops, no murmurs, no rubs ABDOMEN: Soft, nontender. No hepatosplenomegaly, normal bowel sounds, no guarding or rigidity. EXTREMITIES: No clubbing, 2 plus lower extremity edema no cyanosis, 2+ pulses and upper and lower extremities. MUSCULOSKELETAL: Muscle strength and tone normal. SPINE: No scoliosis or deformity SKIN: No rashes CENTRAL NERVOUS SYSTEM: No focal deficits, tone is normal in all 4 extremities. PSYCHIATRIC: Alert and oriented -3. Appropriate affect. Intact judgment and insight. - Labs CBC & Chem 7: 06/17/21 05:34 06/17/21 05:34 Labs: Abnormal Lab Results - Last 24 Hours (Table) 06/17/21 06/17/21 06/18/21 Range/Units 16:38 20:56 06:54 POC Glucose (mg/dL) 108 H 110 H 102 H (75-99) mg/dL Assessment and Plan Assessment: 1 Acute on chronic hypoxic respiratory failure related to bilateral pleural effusions, right greater than left. Pleurx catheter placed in the right chest on 06/17/2021 with initial 1500 MLS removed. Cytology pending. Another 800 ML's removed today per CT services. 2 Metastatic adenocarcinoma of the esophagus diagnosed on 02/03/2021 status post chemo and radiation therapy 3 Recent hospitalization for right pleural effusion, status post right-sided thoracentesis on 05/10/2021 with removal of 2 L of exudative fluid and the pleural fluid was positive for metastatic adenocarcinoma of the esophagus primary. Patient had left-sided thoracentesis on 05/11/2021 with removal of 650 mL of pleural fluid which was also positive for metastatic adenocarcinoma 4 Chronic dysphagia 5 History of COPD 6 Diabetes mellitus type 2 7 Hypertension 8 Hyperlipidemia 9 Osteoarthritis 10 Sleep apnea on home CPAP 11 Anxiety Plan: The patient was seen and evaluated Chest x-ray, medications and labs reviewed Pleurx catheter placed yesterday with initial 1500 ML's removed Another 800 ML's removed today per CT services Cytology pending Does qualify for home oxygen Cleared for discharge from the pulmonary standpoint Follow-up in our office in 1-2 weeks' I have personally seen and examined the patient, performed the documentation and the assessment and plan as written. Number of minutes spent on the visit: 10.
[2021-06-18 11:32] LABS: ALT 9 U/L (10-49); AST 14 U/L (14-35); African American GFR (CKD) 111.6 (60.0-200.0); Albumin 2.6 g/dL (3.8-4.9); Albumin/Globulin Ratio 1.18 (1.60-3.17); Alkaline Phosphatase 116 U/L (41-126); BUN/Creat Ratio 20.14 Ratio (12.00-20.00); Blood Urea Nitrogen 14.1 mg/dL (9.0-27.0); Calcium 8.4 mg/dL (8.7-10.3); Carbon Dioxide 26.2 mmol/L (20.0-27.5); Chloride 103 mmol/L (96-109); Globulin 2.2 g/dL (1.6-3.3); Glucose 106 mg/dL (70-110); Non-African American GFR(CKD) 96.3 (60.0-200.0); Potassium 3.7 mmol/L (3.5-5.5); Sodium 139 mmol/L (135-145); Total Bilirubin <0.15 mg/dL (0.30-1.20); Total Protein 4.8 g/dL (6.2-8.2)
--- NOTE | 2021-06-18 11:52 | P.DS ---
Providers Date of admission: 06/15/21 04:39 Expected date of discharge: 06/18/21 Attending physician: Michell Soriano Consults: 06/15/21 04:39 Consult Physician Routine Consulting Provider: Gary Maddox Consult Reason/Comments: known Do you want consulting provider notified?: Yes Consult Physician Routine Consulting Provider: Fito Ling Consult Reason/Comments: effusion Do you want consulting provider notified?: Yes 06/15/21 08:03 Consult Physician Routine Consulting Provider: Rehan Dill Consult Reason/Comments: Right malignant pleural effusion, Pleurix placement Do you want consulting provider notified?: Yes Primary care physician: Michell Bo Layton Hospital Course: Diagnosis on discharge: 1. Shortness of breath secondary to bilateral pleural effusions 2. Metastatic esophageal cancer with positive pleural fluid cytology. Patient currently receiving chemotherapy follows with oncology services as well as esophageal stent on 03/01/[address] Flores 3. Reoccurring pleural effusions 4. History of COPD 5. History of GERD 6. History of essential hypertension 7. History of hyperlipidemia 8. History of diabetes mellitus 9. Constipation Colace added Hospital course: This is a 70-year-old male patient who presented with increased shortness of breath that have been progressively increasing over the past few days. Patient has a known past medical history of esophageal cancer with malignant pleural effusions. Patient recently underwent thoracentesis on both sides in which fin dings were consistent with cancer cells with primary esophageal cancer. Patient has been following with oncology services in which he is maintained on chemo regime. Patient does have chest wall port in place. Additional medical history includes asthma, cancer, COPD, diabetes mellitus, GERD, hyperlipidemia, hypertension, sleep apnea and anxiety. Chest x-ray was completed showing pleural effusions and pulmonary congestion increased compared to last exam congestive heart failure is probably present. At this time pulmonary, oncology and cardiothoracic surgery has also been consulted plans for Pleurx catheter placement due to recurrent pleural effusions. Current vital signs heart rate 105, respiratory rate 22, blood pressure 132/65 with a pulse ox of 96% on 3 L. On 06/16/2021 patient was seen and examined on the telemetry floor he is alert and oriented 3 in no apparent distress there is no fever or chills no headache or dizziness no chest pain shortness of breath has improved no nausea or vomiting no abdominal pain no diarrhea and no urinary symptoms On 06/17/2021 patient is alert and oriented 3. Plans today for Pleurx catheter placement per cardiothoracic surgery. Patient remains short of breath. Patient denies chest pain. Patient denies nausea vomiting or diarrhea. Patient denies any urinary burning or frequency. Patient is complaining of constipation we'll add Colace On 06/18/2021 patient was seen and examined on the medical floor he is alert and oriented 3 in no apparent distress, he underwent right sided Pleurx catheter placement today, he is feeling better shortness of breath has improved after removing 1.5 L of pleural fluid today, there is no fever or chills no headache or dizziness no chest pain no cough no nausea or vomiting no abdominal pain no diarrhea no blood in the stools no urinary symptoms. Patient was ambulated without oxygen this morning and his pulse ox dropped down to the 70%, oxygen will be ordered for, patient was cleared by pulmonary for discharge to home today. Patient Condition at Discharge: Fair Plan - Discharge Summary Discharge Rx Participant: No New Discharge Prescriptions: Continue ALPRAZolam [Xanax] 0.25 mg PO TID@0600,1200,1800 Optive Eye Drops 1 drop BOTH EYES BID@0600,1800 Meloxicam [Mobic] 7.5 mg PO DAILY@1800 glipiZIDE [Glucotrol] 5 mg PO BID@0600,1800 Fluticasone/Salmeterol [Advair 100-50 Diskus] 1 puff INHALATION RT- BID@0600,1800 Fluticasone Nasal [place] [Flonase Nasal [place]] 1 spray EA NOSTRIL BID@0600,1800 Ezetimibe [Zetia] 10 mg PO HS@2200 Simvastatin [Zocor] 20 mg PO HS@2200 Sucralfate 1 gm PO Q6H Kools Solution 5 ml PO Q4H fentaNYL 25MCG/HR PATCH [Duragesic 25MCG/HR] 1 patch TRANSDERM Q3D@0800 HYDROcodone/APAP [[place] Elixir 7.5-325Mg/15Ml] 15 ml PO Q6H INSULIN ASPART (NovoLOG) [NovoLOG (formulary)] See Protocol SQ ACHS Lidocaine-Prilocaine Cream [Emla Cream 2.5%/2.5%] 1 applic TOPICAL DIRECTED Metoprolol Succinate (ER) [Toprol XL] 50 mg PO BID@0600,1800 Pembrolizumab [Keytruda] 200 mg IV Q21D Folfax Regimen 1 dose IV Q14D Omeprazole [PriLOSEC] 20 mg PO BID@0600,1800 Albuterol Sulfate [Ventolin HFA] 2 puff INHALATION RT-Q4H PRN PRN Reason: Shortness Of Breath guaiFENesin-Coden 100-10MG/5ML [Robitussin AC] 10 ml PO Q6H Ondansetron [Zofran ODT] 8 mg PO Q12HR PRN PRN Reason: Nausea Dicyclomine [Bentyl] 10 mg PO DAILY@0800 diphenhydrAMINE [Benadryl] 25 mg PO Q6H Ibuprofen 200 mg PO Q4H Loratadine 10 mg PO DAILY@0600 Mesalamine [Canasa] 1,000 mg RECTAL HS PRN PRN Reason: Inflammation OLANZapine [ZyPREXA] 5 mg PO DAILY@1999 Discharge Medication List ALPRAZolam [Xanax] 0.25 mg PO TID@0600,1200,1800 01/28/16 [History] Optive Eye Drops 1 drop BOTH EYES BID@0600,1800 01/28/16 [History] Fluticasone/Salmeterol [Advair 100-50 Diskus] 1 puff INHALATION RT-BID@0600,1800 10/01/19 [History] Meloxicam [Mobic] 7.5 mg PO DAILY@179910/01/19 [History] glipiZIDE [Glucotrol] 5 mg PO BID@0600,1800 10/01/19 [History] Albuterol Sulfate [Ventolin HFA] 2 puff INHALATION RT-Q4H PRN 02/01/21 [History] Ezetimibe [Zetia] 10 mg PO HS@219902/01/21 [History] Fluticasone Nasal [place] [Flonase Nasal [place]] 1 spray EA NOSTRIL BID@0600,1800 02/01/21 [History] Omeprazole [PriLOSEC] 20 mg PO BID@0600,1800 02/01/21 [History] Simvastatin [Zocor] 20 mg PO HS@2200 03/01/21 [History] Dicyclomine [Bentyl] 10 mg PO DAILY@0800 04/25/21 [History] Ondansetron [Zofran ODT] 8 mg PO Q12HR PRN 04/25/21 [History] Sucralfate 1 gm PO Q6H 04/25/21 [History] guaiFENesin-Coden 100-10MG/5ML [Robitussin AC] 10 ml PO Q6H 04/25/21 [History] Ibuprofen 200 mg PO Q4H 05/06/21 [History] diphenhydrAMINE [Benadryl] 25 mg PO Q6H 05/06/21 [History] Folfax Regimen 1 dose IV Q14D 06/15/21 [History] HYDROcodone/APAP [[place] Elixir 7.5-325Mg/15Ml] 15 ml PO Q6H 06/15/21 [History] INSULIN ASPART (NovoLOG) [NovoLOG (formulary)] See Protocol SQ ACHS 06/15/21 [History] Kools Solution 5 ml PO Q4H 06/15/21 [History] Lidocaine-Prilocaine Cream [Emla Cream 2.5%/2.5%] 1 applic TOPICAL DIRECTED 06/15/21 [History] Loratadine 10 mg PO DAILY@0600 06/15/21 [History] Mesalamine [Canasa] 1,000 mg RECTAL HS PRN 06/15/21 [History] Metoprolol Succinate (ER) [Toprol XL] 50 mg PO BID@0600,1800 06/15/21 [History] OLANZapine [ZyPREXA] 5 mg PO DAILY@2000 06/15/21 [History] Pembrolizumab [Keytruda] 200 mg IV Q21D 06/15/21 [History] fentaNYL 25MCG/HR PATCH [Duragesic 25MCG/HR] 1 patch TRANSDERM Q3D@0800 06/15/21 [History] Follow up Appointment(s)/Referral(s): [facility], [NON-STAFF] - As Needed ([facility] will call you to schedule your in home nursing visits. ) Michell Soriano MD [Primary Care Provider] - 1-2 days Kelvin Richardson MD [STAFF PHYSICIAN] - As Needed Activity/Diet/Wound Care/Special Instructions: PleurX discharge instructions: 1. Home Care is ordered, they will obtain new bottles. 2. May shower after 24 hours, no tub baths/hot tubs. 3. Do not drain more than 1 liter or 1000 mL in 24 hours. 4. New drainage bottle needed with each drainage. 5. Drainage frequency dictated by patient symptoms, may be every day, every other day, weekly, or however often the patient is symptomatic. 6. Please notify INSTITUTIONAL AIDE or office if temperature >101F, excessive pain at insertion site, drainage consistency changes to cloudy or smells bad, catheter falls out, or anything else that concerns you. 7. Contact surgery office with weekly drainage amounts. May fax the amounts. 8. Once drainage is less than 50 mL three times in a row, notify the surgery office for possible removal. Surgery office: , fax
[2021-06-18 12:12] LABS: Glucose,Whole Blood 116 mg/dL (75-99)
[2021-06-18] MEDS: HYDROmorphone 1 MG/ML 1 ML SYRINGE IVP PRN (13:00)
[2021-06-18 15:18] VITALS: BP 103/54; TEMP 97.8
[2021-06-18 15:49] VITALS: PULSE 84
[2021-06-18 16:50] LABS: Glucose,Whole Blood 115 mg/dL (75-99)
--- NOTE | 2021-06-22 11:55 | CONS ---
CONSULTATION DATE OF SERVICE: 06/15/21 I have seen, examined, and agree with the midlevel's findings. I met with this patient for 45 minutes during this consultation. TIFFANIE / SRAVAN: [phone] / [phone]
== END 2021-06-18 17:53 | disposition home health service (06) | DRG 374 ==
LOC: EC 03:16 → 4SSUR 04:39 → UNDODISIN 06-18 16:12
PROVIDERS: ADMIT Internal Medicine; ATTEND Internal Medicine
PROC: 0W9930Z Drainage of Right Pleural Cavity with Drainage Device, Percutaneous Approach (ICD-10-PCS; principal; 2021-06-17 09:15)
DX: C15.9 Malignant neoplasm of esophagus, unspecified (principal); J96.21 Acute and chronic respiratory failure with hypoxia; E43 Unspecified severe protein-calorie malnutrition; J91.0 Malignant pleural effusion; J98.11 Atelectasis; C79.9 Secondary malignant neoplasm of unspecified site; J44.9 Chronic obstructive pulmonary disease, unspecified; E11.9 Type 2 diabetes mellitus without complications; I11.0 Hypertensive heart disease with heart failure; I50.9 Heart failure, unspecified; Z68.34 Body mass index [BMI] 34.0-34.9, adult; Z20.822 Contact with and (suspected) exposure to COVID-19; K59.00 Constipation, unspecified; I10 Essential (primary) hypertension; E78.5 Hyperlipidemia, unspecified; K21.9 Gastro-esophageal reflux disease without esophagitis; M19.90 Unspecified osteoarthritis, unspecified site; R13.10 Dysphagia, unspecified; G47.33 Obstructive sleep apnea (adult) (pediatric); R42 Dizziness and giddiness; F41.9 Anxiety disorder, unspecified; Z96.89 Presence of other specified functional implants; Z96.641 Presence of right artificial hip joint; Z88.1 Allergy status to other antibiotic agents; Z88.2 Allergy status to sulfonamides; Z88.8 Allergy status to other drugs, medicaments and biological substances; Z79.82 Long term (current) use of aspirin; Z79.84 Long term (current) use of oral hypoglycemic drugs; Z79.899 Other long term (current) drug therapy; Z92.3 Personal history of irradiation; Z80.0 Family history of malignant neoplasm of digestive organs; Z83.2 Family history of diseases of the blood and blood-forming organs and certain disorders involving the immune mechanism; Z79.1 Long term (current) use of non-steroidal anti-inflammatories (NSAID); Z79.4 Long term (current) use of insulin; Z92.21 Personal history of antineoplastic chemotherapy; Z95.828 Presence of other vascular implants and grafts
CPT/HCPCS: 36415; 71045; 80053; 83735; 83880; 84484; 85025; 85610; 85730; 88108; 88305; 88341; 88342; 93005; 94640; 94760; 96374; 96375; 96376; 99285

== ENCOUNTER → 2021-07-08 | Outpatient (CLI) | payer MEDICARE, BC ==
[2021-07-08 10:40] LABS: African American GFR (CKD) >90 (>60 ml/min/1.73 sqM); Blood Urea Nitrogen 18 mg/dL (9-20); Non-African American GFR(CKD) >90 (>60 ml/min/1.73 sqM)
--- NOTE | 2021-07-08 13:34 | CT ---
EXAMINATION TYPE: CT ChestAbdPelvis w con DATE OF EXAM: 07/08/2021 COMPARISON: CT chest 05/09/2021, PET/CT 02/25/2021 HISTORY: Esophageal cancer CT DLP: 3087.0 mGycm Automated exposure control for dose reduction was used. CONTRAST: CT scan of the chest, abdomen and pelvis is performed without Oral Contrast and with IV Contrast, pat ient injected with 70 mL of Isovue 300. FINDINGS: LUNGS: There is a left pleural effusion which is partially loculated at the apex, there is associated atelectasis. A right-sided Pleurx catheter is in place, only minimal right pleural effusion noted, i mprovement compared to prior CT on the right, there may be slightly increased fluid on the left at th e apex as compared to prior MEDIASTINUM: Mediastinal adenopathy is present in the superior mediastinum, retrocaval pretracheal no clay are also seen, slight improvement in the size of the nodes is present. Distal esophageal stent is present associated esophageal wall thickening. There are coronary artery calcifications present. AORTA: No significant abnormality is seen. OTHER: The axillary adenopathy seen on previous PET/CT and chest CT has decreased in size on the lef t. There is a port in the right pectoral region as on prior exam, distal tip of the catheter courses within the superior vena cava. There are anasarca changes present. Right lower quadrant shows anterio r abdominal wall hernia contains fat LIVER/GB: Cystic focus within the liver shows a stable appearance, gallbladder is also similar to fabrice or PANCREAS: No significant change is seen. SPLEEN: No significant abnormality is seen. ADRENALS: No significant abnormality is seen. KIDNEYS: No significant abnormality is seen. REPRODUCTIVE ORGANS: No gross abnormality seen. BOWEL: No significant pain is seen. Large calcified diverticulum present near the rectosigmoid junct ion level FREE AIR: No Free Air visible. ASCITES: None seen. RETROPERITONEAL ADENOPATHY: No retroperitoneal adenopathy is seen. LYMPH NODES: No greater than 1 cm abdominal or pelvic lymph nodes are appreciated. URINARY BLADDER: No significant abnormality is seen. PELVIC ADENOPATHY: None visualized. OSSEOUS STRUCTURES: Postop changes are noted in the right hip. No significant interval finding. IMPRESSION: Findings of improvement in adenopathy. Pleural effusions as described. Interval developme nt of anasarca.
== END | disposition home or self-care (01) ==
LOC: RADCTMAIN 09:37
PROVIDERS: ATTEND Internal Medicine Hematology & Oncology
DX: Z03.89 Encounter for observation for other suspected diseases and conditions ruled out (principal); C15.4 Malignant neoplasm of middle third of esophagus
CPT/HCPCS: 82565; 84520; 71260; 74177; 36415; Q9967

== ENCOUNTER 2021-07-27 16:31 | Inpatient (IN) | payer MEDICARE, BC ==
--- NOTE | 2021-07-27 20:55 | ED ---
General Adult HPI - General Chief complaint: Shortness of Breath Stated complaint: SOB,Pneumonia sent by Dr Umaña Time Seen by Provider: 07/27/21 20:33 Source: patient, family Mode of arrival: wheelchair Limitations: no limitations - History of Present Illness Initial comments: Xiang is a 70-year-old male with history of esophageal cancer whose previously undergone treatment with radiation and is now undergoing chemotherapy. Patient presents the ER today with concern that he has recurrent pneumonia due to persistent coughing and worsening shortness of breath and feeling unwell. Patient also reports he has significant pain anytime he tries to eat or drink anything. He has had an esophageal stent placed surgery physically is capable of eating but reports that he can only take 2-3 x 3 40s overwhelmed with pain and because of this she has not been eating or drinking. His oncologist recommended he come the hospital due to concern for dehydration, failure to thrive and possible recurrent pneumonia. - Related Data Home Medications Medication Instructions Recorded Confirmed ALPRAZolam [Xanax] 0.25 mg PO TID@0600,1200,1800 01/28/16 06/15/21 Optive Eye Drops 1 drop BOTH EYES BID@0600,1800 01/28/16 06/15/21 Fluticasone Propion/Salmeterol 1 puff INHALATION RT-BID@0600,1800 10/01/19 06/15/21 [Advair 100-50 Diskus] Meloxicam [Mobic] 7.5 mg PO DAILY@1800 10/01/19 06/15/21 glipiZIDE [Glucotrol] 5 mg PO BID@0600,1800 10/01/19 06/15/21 Albuterol Sulfate [Ventolin HFA] 2 puff INHALATION RT-Q4H PRN 02/01/21 06/15/21 Ezetimibe [Zetia] 10 mg PO HS@2200 02/01/21 06/15/21 Fluticasone Nasal [place] [Flonase 1 spray EA NOSTRIL BID@0600,1800 02/01/21 06/15/21 Nasal [place]] Omeprazole [PriLOSEC] 20 mg PO BID@0600,1800 02/01/21 06/15/21 Simvastatin [Zocor] 20 mg PO HS@2200 03/01/21 06/15/21 Dicyclomine [Bentyl] 10 mg PO DAILY@0800 04/25/21 06/15/21 Ondansetron [Zofran ODT] 8 mg PO Q12HR PRN 04/25/21 06/15/21 Sucralfate 1 gm PO Q6H 04/25/21 06/15/21 guaiFENesin-Coden 100-10MG/5ML 10 ml PO Q6H 04/25/21 06/15/21 [Robitussin AC] Ibuprofen 200 mg PO Q4H 05/06/21 06/15/21 diphenhydrAMINE [Benadryl] 25 mg PO Q6H 05/06/21 06/15/21 Folfax Regimen 1 dose IV Q14D 06/15/21 06/15/21 HYDROcodone/APAP [[place] Elixir 15 ml PO Q6H 06/15/21 06/15/21 7.5-325Mg/15Ml] INSULIN ASPART (NovoLOG) [NovoLOG See Protocol SQ ACHS 06/15/21 06/15/21 (formulary)] Kools Solution 5 ml PO Q4H 06/15/21 06/15/21 Lidocaine-Prilocaine Cream [Emla 1 applic TOPICAL DIRECTED 06/15/21 06/15/21 Cream 2.5%/2.5%] Loratadine 10 mg PO DAILY@0600 06/15/21 06/15/21 Mesalamine [Canasa] 1,000 mg RECTAL HS PRN 06/15/21 06/15/21 Metoprolol Succinate (ER) [Toprol 50 mg PO BID@0600,1800 06/15/21 06/15/21 XL] OLANZapine [ZyPREXA] 5 mg PO DAILY@199906/15/21 06/15/21 Pembrolizumab [Keytruda] 200 mg IV Q21D 06/15/21 06/15/21 fentaNYL 25MCG/HR PATCH [Duragesic 1 patch TRANSDERM Q3D@0800 06/15/21 06/15/21 25MCG/HR] Allergies Allergy/AdvReac Type Severity Reaction Status Date / Time cefazolin [From Kefzol] Allergy Rash/Hives Verified 07/27/21 17:26 Penicillins Allergy Rash/Hives Verified 07/27/21 17:26 Sulfa (Sulfonamide Allergy Rash/Hives Verified 07/27/21 17:26 Antibiotics) enalaprilat [From Vasotec] AdvReac Cough Verified 07/27/21 17:26 prochlorperazine AdvReac facial Verified 07/27/21 17:26 [From Compazine] twitching, loss of sensation of mouth Review of Systems ROS Statement: Those systems with pertinent positive or pertinent negative responses have been documented in the HPI. ROS Other: All systems not noted in ROS Statement are negative. Past Medical History Past Medical History: Asthma, Cancer, COPD, Diabetes Mellitus, GERD/Reflux, Hyperlipidemia, Hypertension, Osteoarthritis (OA), Sleep Apnea/CPAP/BIPAP Additional Past Medical History / Comment(s): uses CPAP, occ. 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) History of Any Multi-Drug Resistant Organisms: None Reported Past Surgical History: Hernia Repair, Joint Replacement, Orthopedic Surgery Additional Past Surgical History / Comment(s): cystoscopy, both knees replaced, multiple arthroscopies knees, colonoscopies, dental implant, right hip replaced, stent in esophabus 02/03/21, port rt side inserted 03/2021, esophageal stent placed and port inserted 04/26/21 Past Anesthesia/Blood Transfusion Reactions: Previous Problems w/ Anesthesia, Family History of Problems w/ Anesthesia, Motion Sickness Additional Past Anesthesia/Blood Transfusion Reaction / Comment(s): very combative when waking up from general anesthesia, anxious & agitated w/IV sedation,. mother ponv Past Psychological History: Anxiety Smoking Status: Never smoker Past Alcohol Use History: None Reported Past Drug Use History: None Reported - Past Family History Father Brother(s) Family Medical History: Cancer, Deep Vein Thrombosis (DVT) Additional Family Medical History / Comment(s): colon cancer Mother Family Medical History: Cancer Additional Family Medical History / Comment(s): . Father Family Medical History: Cancer Additional Family Medical History / Comment(s): Small intestine cancer with mets Brother(s) Family Medical History: Cancer Sister(s) Family Medical History: Cancer General Exam - General Exam Comments Initial Comments: Physical Exam GENERAL: Chronically ill-appearing gentleman HENT: Normocephalic, Atraumatic. EYES: PERRL, EOMI Conjunctival pallor PULMONARY: Crackles at bases CARDIOVASCULAR: There is a regular rate and rhythm without any murmurs gallops or rubs. ABDOMEN: Soft and nontender with normal bowel sounds. SKIN: Pale and dry : Deferred NEUROLOGIC: Patient is alert and oriented x3. Moving all extremities spontaneously MUSCULOSKELETAL: Generalized atrophy PSYCHIATRIC: Appropriate Limitations: no limitations Course Vital Signs 07/27/21 17:22 Temperature 97.9 F Pulse Rate 118 H Respiratory 22 Rate Blood Pressure 129/78 O2 Sat by Pulse 95 Oximetry Medical Decision Making - Medical Decision Making Patient was seen and evaluated, history is obtained from patient, labs were obtained Labs with worsening anemia, no significant electrolyte abnormalities are noted, patient's albumin is quite low consistent with failure to thrive Patient's chest x-ray shows evidence of pleural effusions, uncertain if this is due to metastatic disease versus heart failure versus anasarca Patient will be admitted to his primary care Dr. Soriano with oncology cardiology and pulmonology on consult, patient and family will discuss possible consult to general surgery for PEG tube placement - Lab Data Result diagrams: 07/27/21 21:30 07/27/21 21:30 Lab Results 07/27/21 07/27/21 07/27/21 Range/Units 21:30 21:30 21:30 WBC 14.8 H (3.8-10.6) k/uL RBC 3.14 L (4.30-5.90) m/uL Hgb 8.6 L D (13.0-17.5) gm/dL Hct 27.7 L (39.0-53.0) % MCV 87.9 (80.0-100.0) fL MCH 27.4 (25.0-35.0) pg MCHC 31.2 (31.0-37.0) g/dL RDW 17.0 H (11.5-15.5) % Plt Count 349 (150-450) k/uL MPV 7.2 Neutrophils % 92 % Lymphocytes % 4 % Monocytes % 2 % Eosinophils % 1 % Basophils % 0 % Neutrophils # 13.5 H (1.3-7.7) k/uL Lymphocytes # 0.7 L (1.0-4.8) k/uL Monocytes # 0.4 (0-1.0) k/uL Eosinophils # 0.1 (0-0.7) k/uL Basophils # 0.1 (0-0.2) k/uL Hypochromasia Moderate Anisocytosis Slight PT 12.9 H (9.0-12.0) sec INR 1.2 H (<1.2) APTT 29.3 (22.0-30.0) sec Sodium 134 L (137-145) mmol/L Potassium 3.1 L (3.5-5.1) mmol/L Chloride 99 (98-107) mmol/L Carbon Dioxide 34 H (22-30) mmol/L Anion Gap 1 mmol/L BUN 12 (9-20) mg/dL Creatinine 0.47 L (0.66-1.25) mg/dL Est GFR (CKD-EPI)AfAm >90 (>60 ml/min/1.73 sqM) Est GFR (CKD-EPI)NonAf >90 (>60 ml/min/1.73 sqM) Glucose 153 H (74-99) mg/dL Plasma Lactic Acid Tobi (0.7-2.0) mmol/L Calcium 7.5 L (8.4-10.2) mg/dL Total Bilirubin 0.4 (0.2-1.3) mg/dL AST 20 (17-59) U/L ALT 10 (4-49) U/L Alkaline Phosphatase 148 H (38-126) U/L Total Protein 4.9 L (6.3-8.2) g/dL Albumin 2.2 L (3.5-5.0) g/dL 07/27/21 Range/Units 21:30 WBC (3.8-10.6) k/uL RBC (4.30-5.90) m/uL Hgb (13.0-17.5) gm/dL Hct (39.0-53.0) % MCV (80.0-100.0) fL MCH (25.0-35.0) pg MCHC (31.0-37.0) g/dL RDW (11.5-15.5) % Plt Count (150-450) k/uL MPV Neutrophils % % Lymphocytes % % Monocytes % % Eosinophils % % Basophils % % Neutrophils # (1.3-7.7) k/uL Lymphocytes # (1.0-4.8) k/uL Monocytes # (0-1.0) k/uL Eosinophils # (0-0.7) k/uL Basophils # (0-0.2) k/uL Hypochromasia Anisocytosis PT (9.0-12.0) sec INR (<1.2) APTT (22.0-30.0) sec Sodium (137-145) mmol/L Potassium (3.5-5.1) mmol/L Chloride (98-107) mmol/L Carbon Dioxide (22-30) mmol/L Anion Gap mmol/L BUN (9-20) mg/dL Creatinine (0.66-1.25) mg/dL Est GFR (CKD-EPI)AfAm (>60 ml/min/1.73 sqM) Est GFR (CKD-EPI)NonAf (>60 ml/min/1.73 sqM) Glucose (74-99) mg/dL Plasma Lactic Acid Tobi 1.0 (0.7-2.0) mmol/L Calcium (8.4-10.2) mg/dL Total Bilirubin (0.2-1.3) mg/dL AST (17-59) U/L ALT (4-49) U/L Alkaline Phosphatase (38-126) U/L Total Protein (6.3-8.2) g/dL Albumin (3.5-5.0) g/dL Disposition Clinical Impression: Recurrent right pleural effusion, Esophageal cancer, Failure to thrive in adult, Hypokalemia, Dysphagia, Dehydration Disposition: ADMITTED IP TO THIS [facility] Condition: Serious Referrals: Michell Soriano MD [Primary Care Provider] - 1-2 days
--- NOTE | 2021-07-27 21:12 | XR ---
EXAMINATION TYPE: XR chest 2V DATE OF EXAM: 07/27/2021 COMPARISON: 06/18/2021 HISTORY: Short of breath TECHNIQUE: 2 views FINDINGS: There is pulmonary vascular congestion. There is blunting of costophrenic angles and more o n the left side. There is right central venous catheter with tip in the superior vena cava. There are chest leads. IMPRESSION: Congestive heart failure with pleural effusions. Pleural fluid increased on the left side compared to old exam
[2021-07-27] MEDS: SODIUM CHLORIDE 0.9% 500 ML 500 ML IV SCH (21:37)
[2021-07-27 22:14] LABS: Anisocytosis Slight; Basophils # (A) 0.1 k/uL (0-0.2); Basophils % (A) 0 %; Eosinophils # (A) 0.1 k/uL (0-0.7); Eosinophils % (A) 1 %; HCT 27.7 % (39.0-53.0); Hypochromasia Moderate; Lymphocytes # (A) 0.7 k/uL (1.0-4.8); Lymphocytes % (A) 4 %; MCH 27.4 pg (25.0-35.0); MCHC 31.2 g/dL (31.0-37.0); MCV 87.9 fL (80.0-100.0); Mean Platelet Volume 7.2; Monocytes # (A) 0.4 k/uL (0-1.0); Monocytes % (A) 2 %; Neutrophils # (A) 13.5 k/uL (1.3-7.7); Neutrophils % (A) 92 %; Platelet Count 349 k/uL (150-450); RBC 3.14 m/uL (4.30-5.90); WBC 14.8 k/uL (3.8-10.6)
[2021-07-27 22:17] LABS: HGB 8.6 gm/dL (13.0-17.5)
[2021-07-27] MEDS ORDERED: IPRATROPIUM-ALBUTEROL 3 ML NEB INHALATION STA (22:20)
[2021-07-27] MEDS ORDERED: MORPHINE SULFATE 2 MG/ML SYRINGE IVP STA (22:20)
[2021-07-27 22:23] LABS: ALT 10 U/L (4-49); AST 20 U/L (17-59); African American GFR (CKD) >90 (>60 ml/min/1.73 sqM); Albumin 2.2 g/dL (3.5-5.0); Alkaline Phosphatase 148 U/L (38-126); Anion Gap 1 mmol/L; Blood Urea Nitrogen 12 mg/dL (9-20); Calcium 7.5 mg/dL (8.4-10.2); Carbon Dioxide 34 mmol/L (22-30); Chloride 99 mmol/L (98-107); Glucose 153 mg/dL (74-99); Non-African American GFR(CKD) >90 (>60 ml/min/1.73 sqM); Potassium 3.1 mmol/L (3.5-5.1); Sodium 134 mmol/L (137-145); Total Bilirubin 0.4 mg/dL (0.2-1.3); Total Protein 4.9 g/dL (6.3-8.2)
[2021-07-27 22:25] LABS: INR 1.2 (<1.2); Partial Thromboplastin Time 29.3 sec (22.0-30.0); Prothrombin Time 12.9 sec (9.0-12.0)
[2021-07-27] MEDS ORDERED: NALOXONE 0.4 MG/ML 1 ML VIAL IV PRN (22:31)
[2021-07-28] MEDS ORDERED: ONDANSETRON 4 MG/2 ML VIAL IVP STA (00:16)
[2021-07-28] MEDS ORDERED: MORPHINE SULFATE 4 MG/ML SYRINGE IVP STA (03:04)
[2021-07-28] MEDS: SODIUM CHLORIDE 0.9% 500 ML 500 ML IV SCH (03:49)
[2021-07-28 06:55] LABS: Glucose,Whole Blood 129 mg/dL (70-110)
[2021-07-28] MEDS: SODIUM CHLORIDE 0.9% 1,000 ML IV SCH ×3 (07:25→14:03)
--- NOTE | 2021-07-28 08:49 | US ---
EXAMINATION TYPE: US chest DATE OF EXAM: 07/28/2021 COMPARISON: NONE CLINICAL HISTORY: Left pleural effusion. left pleural effusion TECHNIQUE: Targeted ultrasound of the posterior lower left hemithorax EXAM MEASUREMENTS: Left Pleural Effusion pocket size: 12.5 cm Left skin surface to fluid distance: 4.6 cm Left side marked for possible thoracentesis outside the dept. Pulmonologists are able to review the images in the patient?s EMR. IMPRESSIONS: 1. Left pleural effusion
[2021-07-28] MEDS: MORPHINE SULFATE 4 MG/ML SYRINGE IVP PRN ×2 (09:15→14:56)
--- NOTE | 2021-07-28 09:46 | P.CNPUL ---
History of Present Illness Consult date: 07/28/21 Requesting physician: Michell Soriano Reason for consult: dyspnea, pleural effusion, abnormal CXR/CT Chief complaint: Shortness of breath History of present illness: This is a very pleasant 70-year-old male patient with a history of hypertension, hyperlipidemia, diabetes mellitus, obstructive sleep apnea utilizing CPAP osteoarthritis with multiple orthopedic surgeries, nonsmoker. The patient also has a history of esophageal cancer with previous stent placed in April 2021. 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 Most recently he had a right-sided Pleurx catheter placement on 06/17/2021 and fluid was positive for metastatic adenocarcinoma. He is currently on Keytruda. He had been having decreased amounts of pleural fluid that he had been draining at home. Less than 25-50 mL now. He presented here to the emergency room yesterday with complaints of increasing shortness of breath and is now found to have a large left-sided pleural effusion. Ultrasound of the left chest reveals a 12.5 cm pocket. I count 14.8. Hemoglobin 8.6. Platelets 349. INR 1.2. Sodium 134. Potassium 3.1. BUN 12. Creatinine 0.47. AST 20. ALT 10. Blood glucose 153. He is seen today in consultation in the emergency department. He's currently resting fairly comfortable on the stretcher. Awake and alert in no acute distress. He is maintaining O2 saturations in the 90s on 2 L/m per laura al cannula. He has 0.9% normal saline at 130 ML's per hour. He is dyspneic with exertion. He also states he is quite fatigued and weak today. Review of Systems REVIEW OF SYSTEMS: CONSTITUTIONAL: Generalized weakness, fatigue. Denies any recent significant weight loss or weight gain. EYES: Denies change in vision. EARS, NOSE, MOUTH, THROAT: Denies headaches, denies sore throat. CARDIOVASCULAR: Denies chest pain, palpitations or syncopal episodes. RESPIRATORY: Positive for shortness of breath, cough, congestion no hemoptysis. GASTROINTESTINAL: Denies change in appetite, denies abdominal pain GENITOURINARY: Denies hematuria, denies infections. MUSKULOSKELETAL: Denies pain, denies swelling. INTEGUMENTARY: Denies rash, denies eczema. NEUROLOGICAL: Denies recent memory loss, no recent seizure activity. PSYCHIATRIC: Denies anxiety, denies depression. HEMATOLOGIC/LYMPHATIC: Denies anemia, denies enlarged lymph nodes. Past Medical History Past Medical History: Asthma, Cancer, COPD, Diabetes Mellitus, GERD/Reflux, Hyperlipidemia, Hypertension, Osteoarthritis (OA), Sleep Apnea/CPAP/BIPAP Additional Past Medical History / Comment(s): uses CPAP, occ. 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) History of Any Multi-Drug Resistant Organisms: None Reported Past Surgical History: Hernia Repair, Joint Replacement, Orthopedic Surgery Additional Past Surgical History / Comment(s): cystoscopy, both knees replaced, multiple arthroscopies knees, colonoscopies, dental implant, right hip replaced, stent in esophabus 02/03/21, port rt side inserted 03/2021, esophageal stent placed and port inserted 04/26/21 Past Anesthesia/Blood Transfusion Reactions: Previous Problems w/ Anesthesia, Family History of Problems w/ Anesthesia, Motion Sickness Additional Past Anesthesia/Blood Transfusion Reaction / Comment(s): very combative when waking up from general anesthesia, anxious & agitated w/IV sedation,. mother ponv Past Psychological History: Anxiety Smoking Status: Never smoker Past Alcohol Use History: None Reported Past Drug Use History: None Reported - Past Family History Father Brother(s) Family Medical History: Cancer, Deep Vein Thrombosis (DVT) Additional Family Medical History / Comment(s): colon cancer Mother Family Medical History: Cancer Additional Family Medical History / Comment(s): . Father Family Medical History: Cancer Additional Family Medical History / Comment(s): Small intestine cancer with mets Brother(s) Family Medical History: Cancer Sister(s) Family Medical History: Cancer Medications and Allergies Home Medications Medication Instructions Recorded Confirmed Type ALPRAZolam [Xanax] 0.25 mg PO TID@0600,1200,1800 01/28/16 07/28/21 History Optive Eye Drops 1 drop BOTH EYES BID@0600,1800 01/28/16 07/28/21 History Fluticasone Propion/Salmeterol 1 puff INHALATION RT-BID@0600,1800 10/01/19 History [Advair 100-50 Diskus] Meloxicam [Mobic] 7.5 mg PO DAILY@1800 10/01/19 07/28/21 History glipiZIDE [Glucotrol] 5 mg PO BID@0600,1800 10/01/19 07/28/21 History Albuterol Sulfate [Ventolin HFA] 2 puff INHALATION RT-Q4H PRN 02/01/21 07/28/21 History Ezetimibe [Zetia] 10 mg PO HS@2200 02/01/21 07/28/21 History Fluticasone Nasal [place] [Flonase 1 spray EA NOSTRIL BID@0600,1800 02/01/21 07/28/21 History Nasal [place]] Omeprazole [PriLOSEC] 20 mg PO BID@0600,1800 02/01/21 07/28/21 History Simvastatin [Zocor] 20 mg PO HS@2200 03/01/21 07/28/21 History Dicyclomine [Bentyl] 10 mg PO DAILY@0800 04/25/21 07/28/21 History Ondansetron [Zofran ODT] 8 mg PO Q12HR PRN 04/25/21 07/28/21 History Sucralfate 1 gm PO Q6H 04/25/21 07/28/21 History guaiFENesin-Coden 100-10MG/5ML 10 ml PO Q6H 04/25/21 07/28/21 History [Robitussin AC] Ibuprofen 200 mg PO Q4H 05/06/21 07/28/21 History diphenhydrAMINE [Benadryl] 25 mg PO Q6H 05/06/21 07/28/21 History Folfax Regimen 1 dose IV Q14D 06/15/21 07/28/21 History HYDROcodone/APAP [[place] Elixir 15 ml PO Q6H 06/15/21 07/28/21 History 7.5-325Mg/15Ml] INSULIN ASPART (NovoLOG) [NovoLOG See Protocol SQ ACHS 06/15/21 07/28/21 History (formulary)] Kools Solution 5 ml PO Q4H 06/15/21 07/28/21 History Lidocaine-Prilocaine Cream [Emla 1 applic TOPICAL DIRECTED 06/15/21 07/28/21 History Cream 2.5%/2.5%] Loratadine 10 mg PO DAILY@0600 06/15/21 07/28/21 History Mesalamine [Canasa] 1,000 mg RECTAL HS PRN 06/15/21 07/28/21 History Metoprolol Succinate (ER) [Toprol 50 mg PO BID@0600,1800 06/15/21 07/28/21 History XL] OLANZapine [ZyPREXA] 5 mg PO DAILY@2000 06/15/21 07/28/21 History Pembrolizumab [Keytruda] 200 mg IV Q21D 06/15/21 07/28/21 History fentaNYL 25MCG/HR PATCH [Duragesic 1 patch TRANSDERM Q3D@0800 06/15/21 07/28/21 History 25MCG/HR] Metoclopramide [Reglan] 10 mg PO BID 07/28/21 07/28/21 History Allergies Allergy/AdvReac Type Severity Reaction Status Date / Time cefazolin [From Kefzol] Allergy Rash/Hives Verified 07/28/21 07:41 Penicillins Allergy Rash/Hives Verified 07/28/21 07:41 Sulfa (Sulfonamide Allergy Rash/Hives Verified 07/28/21 07:41 Antibiotics) enalaprilat [From Vasotec] AdvReac Cough Verified 07/28/21 07:41 prochlorperazine AdvReac facial Verified 07/28/21 07:41 [From Compazine] twitching, loss of sensation of mouth Physical Exam Vitals: Vital Signs Temp Pulse Resp BP Pulse Ox 07/28/21 06:26 129 H 20 132/79 94 L 07/28/21 03:26 131 H 28 H 131/89 94 L 07/28/21 01:29 130 H 07/28/21 01:26 128 H 19 130/81 94 L 07/28/21 01:18 126 H 07/28/21 01:17 126 H 07/28/21 01:07 130 H 07/28/21 00:26 117 H 20 121/74 96 07/27/21 17:22 97.9 F 118 H 22 129/78 95 Intake and Output 07/27/21 07/28/21 07/28/21 22:59 06:59 14:59 Other: Weight 125.645 kg GENERAL EXAM: Alert, very pleasant 70-year-old male patient, on 2 L nasal cannula, fairly comfortable in no apparent distress. HEAD: Normocephalic. EYES: Normal reaction of pupils, equal size. NOSE: Clear with pink turbinates. THROAT: No erythema or exudates. NECK: No masses, no JVD. CHEST: No chest wall deformity. Right-sided Mediport in place. Right-sided Pleurx catheter in place. LUNGS: Equal air entry with bibasilar crackles left greater than right. Diminished in the left lung base. CVS: S1 and S2 normal with no audible murmur, regular rhythm. ABDOMEN: No hepatosplenomegaly, normal bowel sounds, no guarding or rigidity. SPINE: No scoliosis or deformity SKIN: No rashes CENTRAL NERVOUS SYSTEM: No focal deficits, tone is normal in all 4 extremities. EXTREMITIES: There is no peripheral edema. No clubbing, no cyanosis. Peripheral pulses are intact. Results - Laboratory Findings CBC and BMP: 07/27/21 21:30 07/27/21 21:30 PT/INR, D-dimer PT 12.9 sec (9.0-12.0) H 07/27/21 21:30 INR 1.2 (<1.2) H 07/27/21 21:30 Abnormal lab findings: Abnormal Labs 07/27/21 07/27/21 07/27/21 21:30 21:30 21:30 WBC 14.8 H RBC 3.14 L Hgb 8.6 L D Hct 27.7 L RDW 17.0 H Neutrophils # 13.5 H Lymphocytes # 0.7 L PT 12.9 H INR 1.2 H Sodium 134 L Potassium 3.1 L Carbon Dioxide 34 H Creatinine 0.47 L Glucose 153 H POC Glucose (mg/dL) Calcium 7.5 L Alkaline Phosphatase 148 H Total Protein 4.9 L Albumin 2.2 L 07/28/21 06:53 WBC RBC Hgb Hct RDW Neutrophils # Lymphocytes # PT INR Sodium Potassium Carbon Dioxide Creatinine Glucose POC Glucose (mg/dL) 129 H Calcium Alkaline Phosphatase Total Protein Albumin - Diagnostic Findings Chest x-ray: image reviewed Assessment and Plan Assessment: 1 Acute on chronic hypoxic respiratory failure secondary to a moderate size left pleural effusion secondary to metastatic adenocarcinoma of the esophagus 2 Metastatic adenocarcinoma of the esophagus 3 Recurrent right-sided pleural effusion, status post Pleurx catheter placement on 06/17/2021 4 Chronic dysphagia 5 History of COPD 6 Diabetes mellitus, type II 7 Hypertension 8 Hyperlipidemia 9 Osteoarthritis 10 Obstructive sleep apnea on CPAP 11 History of anxiety Plan: The patient was seen and evaluated Chest x-ray, ultrasound, medications and labs reviewed Plan is for left-sided thoracentesis May need a left-sided Pleurx catheter at some point Titrate the FiO2 as tolerated We will continue to follow and make further recommendations based on his clinical status I have personally seen and examined the patient, performed the documentation and the assessment and plan as written. Number of minutes spent on the visit: 20.
--- NOTE | 2021-07-28 10:25 | P.CRDCN ---
History of Present Illness History of present illness: HISTORY OF PRESENTING ILLNESS This is a pleasant 70-year-old male past medical history significant for esophageal cancer with previous stent placement in 04/2021 undergoing chemotherapy, pleural effusions with previous thoracentesis, recurrent malignant right pleural effusion with Pleurx drain placed 06/17/2021 and fluid was positive for metastatic adenocarcinoma, hypertension, PVCs, hyperlipidemia, diabetes mellitus, obstructive sleep apnea uses CPAP osteoarthritis with prior orthopedic surgeries. He follows with Dr. Coburn. We have been asked to see in consultation for pleural effusion. Patient presents to the emergency department with worsening shortness of breath, states he feels as if he cannot get enough air in. He was found to have a large left sided pleural effusion. He denies any chest pain, nausea, vomiting, diaphoresis, lightheadedness, dizziness or syncope. He denies tobacco use. He denies any history of CAD, AL, Stroke. DIAGNOSTICS EKG reveals sinus tachycardia, heart rate 118, nonspecific St-T-wave abnormalities,no acute ischemia noted.prior EKG was similar findings. Telemetry tracings indicate sinus tachycardia Chest xray blunting the costophrenic angles MR on the left side, pleural fluid increase in left side compared to old exam. Ultrasound of the left chest reveals a 12.5 cm pocket Laboratory reviewed, WBC 40.8, hemoglobin 8.6, platelets 349, INR 1.2, sodium 134, potassium 4.1, BUN 12, serum creatinine 0.4, alkaline phosphatase 140, total protein 4.9, albumin 2.2 Current home cardiac medications include metoprolol succinate 50 mg twice a day. Zetia 10 mg nightly, simvastatin 20 mg nightly REVIEW OF SYSTEMS At the time of my exam: CONSTITUTIONAL: Denies fever or chills. CARDIOVASCULAR: Denies chest pain, Reports shortness of breath, orthopnea, PND RESPIRATORY: Denies cough. GASTROINTESTINAL: Denies abdominal pain, diarrhea, constipation, nausea or vomiting. MUSCULOSKELETAL: Denies myalgias. NEUROLOGIC: Denies numbness, tingling, headacbe or weakness. ENDOCRINE: Denies fatigue, weight change, polydipsia or polyurina. GENITOURINARY: Denies burning, hematuria or urgency with micturation. HEMATOLOGIC: Denies history of anemia or bleeding. PHYSICAL EXAMINATION Blood pressure 132/79, heart rate 129, afebrile, oxygen saturation 94% on 4L CONSTITUTIONAL: No apparent distress. HEENT: Head is normocephalic. Pupils are equal, round. Sclerae anicteric. Mucous membranes of the mouth are moist. No JVD. CHEST EXAMINATION: Lungs crackles in bases bilaterally, more on the left to auscultation. No chest wall tenderness is noted on palpation or with deep breathing. Right pleurx catheter. Right Mediport in place HEART EXAMINATION: Regular rate and rhythm. S1, S2 heard. No murmurs, gallops or rub. ABDOMEN: Soft, nontender. Positive bowel sounds. EXTREMITIES: 2+ peripheral pulses, no lower extremity edema and no calf tenderness. NEUROLOGIC EXAMINATION: Patient is awake, alert and oriented x3. ASSESSMENT Left sided pleural effusion Acute on chronic hypoxic respiratory failure Meteastatic adenocarcinoma of esophagus History of recurrent right sided pleural effusion s/p Pleurx catheter placement 06/2021 COPD Type 2 Diabetes Hypertension Hyperlipidemia Obstructive sleep apnea PLAN Obtain echocardiogram to evaluate for pericardial effusion Pulmonary consulted, plan for left sided thoracentesis Oncology also consulted Further recommendations based on clinical course Nurse practitioner note has been reviewed by physician. Signing provider agrees with the documented findings, assessment, and plan of care. Past Medical History Past Medical History: Asthma, Cancer, COPD, Diabetes Mellitus, GERD/Reflux, Hyperlipidemia, Hypertension, Osteoarthritis (OA), Sleep Apnea/CPAP/BIPAP Additional Past Medical History / Comment(s): uses CPAP, occ. 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) History of Any Multi-Drug Resistant Organisms: None Reported Past Surgical History: Hernia Repair, Joint Replacement, Orthopedic Surgery Additional Past Surgical History / Comment(s): cystoscopy, both knees replaced, multiple arthroscopies knees, colonoscopies, dental implant, right hip replaced, stent in esophabus 02/03/21, port rt side inserted 03/2021, esophageal stent placed and port inserted 04/26/21 Past Anesthesia/Blood Transfusion Reactions: Previous Problems w/ Anesthesia, Family History of Problems w/ Anesthesia, Motion Sickness Additional Past Anesthesia/Blood Transfusion Reaction / Comment(s): very combative when waking up from general anesthesia, anxious & agitated w/IV sedati on,. mother ponv Past Psychological History: Anxiety Smoking Status: Never smoker Past Alcohol Use History: None Reported Past Drug Use History: None Reported - Past Family History Father Brother(s) Family Medical History: Cancer, Deep Vein Thrombosis (DVT) Additional Family Medical History / Comment(s): colon cancer Mother Family Medical History: Cancer Additional Family Medical History / Comment(s): . Father Family Medical History: Cancer Additional Family Medical History / Comment(s): Small intestine cancer with mets Brother(s) Family Medical History: Cancer Sister(s) Family Medical History: Cancer Medications and Allergies Home Medications Medication Instructions Recorded Confirmed Type ALPRAZolam [Xanax] 0.25 mg PO TID@0600,1200,1800 01/28/16 07/28/21 History Optive Eye Drops 1 drop BOTH EYES BID@0600,1800 01/28/16 07/28/21 History Fluticasone Propion/Salmeterol 1 puff INHALATION RT-BID@0600,1800 10/01/19 07/28/21 History [Advair 100-50 Diskus] Meloxicam [Mobic] 7.5 mg PO DAILY@1800 10/01/19 07/28/21 History glipiZIDE [Glucotrol] 5 mg PO BID@0600,1800 10/01/19 07/28/21 History Albuterol Sulfate [Ventolin HFA] 2 puff INHALATION RT-Q4H PRN 02/01/21 07/28/21 History Ezetimibe [Zetia] 10 mg PO HS@2200 02/01/21 07/28/21 History Fluticasone Nasal [place] [Flonase 1 spray EA NOSTRIL BID@0600,1800 02/01/21 07/28/21 History Nasal [place]] Omeprazole [PriLOSEC] 20 mg PO BID@0600,1800 02/01/21 07/28/21 History Simvastatin [Zocor] 20 mg PO HS@2200 03/01/21 07/28/21 History Dicyclomine [Bentyl] 10 mg PO DAILY@0800 04/25/21 07/28/21 History Ondansetron [Zofran ODT] 8 mg PO Q12HR PRN 04/25/21 07/28/21 History Sucralfate 1 gm PO Q6H 04/25/21 07/28/21 History guaiFENesin-Coden 100-10MG/5ML 10 ml PO Q6H 04/25/21 07/28/21 History [Robitussin AC] Ibuprofen 200 mg PO Q4H 05/06/21 07/28/21 History diphenhydrAMINE [Benadryl] 25 mg PO Q6H 05/06/21 07/28/21 History Folfax Regimen 1 dose IV Q14D 06/15/21 07/28/21 History HYDROcodone/APAP [[place] Elixir 15 ml PO Q6H 06/15/21 07/28/21 History 7.5-325Mg/15Ml] INSULIN ASPART (NovoLOG) [NovoLOG See Protocol SQ ACHS 06/15/21 07/28/21 History (formulary)] Kools Solution 5 ml PO Q4H 06/15/21 07/28/21 History Lidocaine-Prilocaine Cream [Emla 1 applic TOPICAL DIRECTED 06/15/21 07/28/21 History Cream 2.5%/2.5%] Loratadine 10 mg PO DAILY@0600 06/15/21 07/28/21 History Mesalamine [Canasa] 1,000 mg RECTAL HS PRN 06/15/21 07/28/21 History Metoprolol Succinate (ER) [Toprol 50 mg PO BID@0600,1800 06/15/21 07/28/21 History XL] OLANZapine [ZyPREXA] 5 mg PO DAILY@2000 06/15/21 07/28/21 History Pembrolizumab [Keytruda] 200 mg IV Q21D 06/15/21 07/28/21 History fentaNYL 25MCG/HR PATCH [Duragesic 1 patch TRANSDERM Q3D@0800 06/15/21 07/28/21 History 25MCG/HR] Metoclopramide [Reglan] 10 mg PO BID 07/28/21 07/28/21 History Allergies Allergy/AdvReac Type Severity Reaction Status Date / Time cefazolin [From Kefzol] Allergy Rash/Hives Verified 07/28/21 07:41 Penicillins Allergy Rash/Hives Verified 07/28/21 07:41 Sulfa (Sulfonamide Allergy Rash/Hives Verified 07/28/21 07:41 Antibiotics) enalaprilat [From Vasotec] AdvReac Cough Verified 07/28/21 07:41 prochlorperazine AdvReac facial Verified 07/28/21 07:41 [From Compazine] twitching, loss of sensation of mouth Physical Exam Vitals: Vital Signs Temp Pulse Resp BP Pulse Ox 07/28/21 06:26 129 H 20 132/79 94 L 07/28/21 03:26 131 H 28 H 131/89 94 L 07/28/21 01:29 130 H 07/28/21 01:26 128 H 19 130/81 94 L 07/28/21 01:18 126 H 07/28/21 01:17 126 H 07/28/21 01:07 130 H 07/28/21 00:26 117 H 20 121/74 96 07/27/21 17:22 97.9 F 118 H 22 129/78 95 Intake and Output 07/27/21 07/28/21 07/28/21 22:59 06:59 14:59 Other: Weight 125.645 kg Results 07/27/21 21:30 07/27/21 21:30 Cardiac Enzymes 07/27/21 Range/Units 21:30 AST 20 (17-59) U/L Coagulation 07/27/21 Range/Units 21:30 PT 12.9 H (9.0-12.0) sec APTT 29.3 (22.0-30.0) sec CBC 07/27/21 Range/Units 21:30 WBC 14.8 H (3.8-10.6) k/uL RBC 3.14 L (4.30-5.90) m/uL Hgb 8.6 L D (13.0-17.5) gm/dL Hct 27.7 L (39.0-53.0) % Plt Count 349 (150-450) k/uL Comprehensive Metabolic Panel 07/27/21 Range/Units 21:30 Sodium 134 L (137-145) mmol/L Potassium 3.1 L (3.5-5.1) mmol/L Chloride 99 (98-107) mmol/L Carbon Dioxide 34 H (22-30) mmol/L BUN 12 (9-20) mg/dL Creatinine 0.47 L (0.66-1.25) mg/dL Glucose 153 H (74-99) mg/dL Calcium 7.5 L (8.4-10.2) mg/dL AST 20 (17-59) U/L ALT 10 (4-49) U/L Alkaline Phosphatase 148 H (38-126) U/L Total Protein 4.9 L (6.3-8.2) g/dL Albumin 2.2 L (3.5-5.0) g/dL Current Medications Generic Name Dose Route Start Last Admin Trade Name Freq PRN Reason Stop Dose Admin Sodium Chloride 1,000 mls @ 130 mls/hr 07/27/21 20:45 07/28/21 07:25 Saline 0.9% IV 130 mls/hr .[id number] BINU Administration Morphine Sulfate 4 mg 07/28/21 03:04 07/28/21 09:15 Morphine Sulfate 4 Mg/Ml Syringe IVP 4 mg Q4HR PRN Administration Pain Naloxone HCl 0.2 mg 07/27/21 22:31 Naloxone 0.4 Mg/Ml 1 Ml Vial IV Q2M PRN Opioid Reversal Intake and Output 07/27/21 07/28/21 07/28/21 22:59 06:59 14:59 Other: Weight 125.645 kg 07/27/21 21:30 07/27/21 21:30
[2021-07-28 11:44] LABS: Anisocytosis Slight; Basophils % (A) 0 %; Eosinophils # (A) 0.1 k/uL (0-0.7); Eosinophils % (A) 1 %; HCT 28.1 % (39.0-53.0); HGB 8.9 gm/dL (13.0-17.5); Hypochromasia Marked; Lymphocytes # (A) 0.5 k/uL (1.0-4.8); Lymphocytes % (A) 4 %; MCH 28.3 pg (25.0-35.0); MCHC 31.7 g/dL (31.0-37.0); MCV 89.2 fL (80.0-100.0); Mean Platelet Volume 7.3; Monocytes # (A) 0.3 k/uL (0-1.0); Monocytes % (A) 3 %; Neutrophils # (A) 10.5 k/uL (1.3-7.7); Neutrophils % (A) 91 %; Platelet Count 367 k/uL (150-450); RBC 3.15 m/uL (4.30-5.90); RDW 17.5 % (11.5-15.5); WBC 11.5 k/uL (3.8-10.6)
[2021-07-28 12:02] LABS: INR 1.2 (<1.2); Partial Thromboplastin Time 27.6 sec (22.0-30.0)
[2021-07-28 12:14] LABS: ALT 10 U/L (4-49); AST 24 U/L (17-59); African American GFR (CKD) >90 (>60 ml/min/1.73 sqM); Albumin 2.1 g/dL (3.5-5.0); Albumin/Globulin Ratio 0.8; Alkaline Phosphatase 135 U/L (38-126); Anion Gap 3 mmol/L; Blood Urea Nitrogen 11 mg/dL (9-20); Calcium 7.3 mg/dL (8.4-10.2); Carbon Dioxide 31 mmol/L (22-30); Chloride 104 mmol/L (98-107); Globulin 2.6 g/dL; Glucose 128 mg/dL (74-99); Magnesium 1.8 mg/dL (1.6-2.3); Non-African American GFR(CKD) >90 (>60 ml/min/1.73 sqM); Potassium 3.3 mmol/L (3.5-5.1); Sodium 138 mmol/L (137-145); Total Bilirubin 0.4 mg/dL (0.2-1.3); Total Protein 4.7 g/dL (6.3-8.2)
[2021-07-28] MEDS: IPRATROPIUM-ALBUTEROL 3 ML NEB INHALATION PRN (13:41)
--- NOTE | 2021-07-28 13:49 | CA ---
Transthoracic Echo Report Name: Xiang Pimentel Age: 70 Gender: M : 1950 Exam Date: 07/28/2021 10:14 Exam Location: [facility] Ht (in): 72 Wt (lb): 277 Ordering Physician: Lisa Novoa Attending/Referring Phys: Lito Coburn MD ([id number]) Inf[employer] Lead Teacher Neida Alexis RDCS Procedure CPT: Indications: assess for pericardial effusion Cardiac Hx: Technical Quality: Good Contrast 1: Total Dose (mL): Contrast 2: Total Dose (mL): MEASUREMENTS (Male / Female) Normal Values FINDINGS Left Ventricle Left ventricular ejection fraction is estimated at 50-50%. Right Ventricle Right Atrium Left Atrium Mitral Valve Aortic Valve Tricuspid Valve Pulmonic Valve Pericardium Large Right and left pleural effusion. Aorta CONCLUSIONS Normal LV systolic function No pericardial effusion very large left and right pleural effusions Previewed by: Dr. Frantz Ybarra MD (Electronically Signed) Final Date: 28 July 2021 13:47
[2021-07-28] MEDS ORDERED: MESALAMINE 1,000 MG SUPP RECTAL PRN (15:19)
[2021-07-28] MEDS ORDERED: [UNRECOGNIZED DRUG - OTHER] PO SCH (15:30)
[2021-07-28] MEDS ORDERED: NON FORMULARY DRUG (Pembrolizumab [Keytruda] 100 MG/4 ML Each) IV SCH (15:30)
[2021-07-28] MEDS ORDERED: [UNRECOGNIZED DRUG - OTHER] IV SCH (15:30)
--- NOTE | 2021-07-28 17:00 | P.HPIM ---
History of Present Illness H&P Date: 07/28/21 Xiang Pimentel, 70-year-old male patient who presented to [facility] emergency room with a chief complaint of worsening shortness of breath patient has a known history of esophageal cancer, he has chronic right sided pleural effusion, he had a right-sided Pleurx catheter placement on 06/17/2021 and fluid was positive for metastatic adenocarcinoma. He was evaluated in the emergency room vital examination on presentation revealed a temperature of 97.9 pulse 118 respiration 22 blood pressure 129/78 pulse ox 95% on 3 L nasal cannula Laboratory data reveals a white blood count of 14.8 hemoglobin 8.6 platelet count 349 sodium 134 potassium 3.1 chloride 99 CO2 34 BUN 12 creatinine 0.47 Testing in the emergency room revealed chest x-ray done in the emergency room revealed evidence of congestive heart failure with pleural effusions, fluid increased on the left side compared to old exam Patient was admitted to medical floor for further evaluation and treatment cardiology and pulmonary consultation were requested Past medical history history of hypertension, hyperlipidemia, diabetes mellitus, obstructive sleep apnea utilizing CPAP osteoarthritis with multiple orthopedic surgeries, nonsmoker. The patient also has a history of esophageal cancer with previous stent placed in April 2021. 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 Past Medical History Past Medical History: Asthma, Cancer, COPD, Diabetes Mellitus, GERD/Reflux, Hyperlipidemia, Hypertension, Osteoarthritis (OA), Sleep Apnea/CPAP/BIPAP Additional Past Medical History / Comment(s): uses CPAP, occ. 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) History of Any Multi-Drug Resistant Organisms: None Reported Past Surgical History: Hernia Repair, Joint Replacement, Orthopedic Surgery Additional Past Surgical History / Comment(s): cystoscopy, both knees replaced, multiple arthroscopies knees, colonoscopies, dental implant, right hip replaced, stent in esophabus 02/03/21, port rt side inserted 03/2021, esophageal stent pl aced and port inserted 04/26/21 Past Anesthesia/Blood Transfusion Reactions: Previous Problems w/ Anesthesia, Family History of Problems w/ Anesthesia, Motion Sickness Additional Past Anesthesia/Blood Transfusion Reaction / Comment(s): very combative when waking up from general anesthesia, anxious & agitated w/IV sedation,. mother ponv Past Psychological History: Anxiety Smoking Status: Never smoker Past Alcohol Use History: None Reported Past Drug Use History: None Reported - Past Family History Father Brother(s) Family Medical History: Cancer, Deep Vein Thrombosis (DVT) Additional Family Medical History / Comment(s): colon cancer Mother Family Medical History: Cancer Additional Family Medical History / Comment(s): . Father Family Medical History: Cancer Additional Family Medical History / Comment(s): Small intestine cancer with mets Brother(s) Family Medical History: Cancer Sister(s) Family Medical History: Cancer Medications and Allergies Home Medications Medication Instructions Recorded Confirmed Type ALPRAZolam [Xanax] 0.25 mg PO TID@0600,1200,1800 01/28/16 07/28/21 History Optive Eye Drops 1 drop BOTH EYES BID@0600,1800 01/28/16 07/28/21 History Fluticasone Propion/Salmeterol 1 puff INHALATION RT-BID@0600,1800 10/01/19 07/28/21 History [Advair 100-50 Diskus] Meloxicam [Mobic] 7.5 mg PO DAILY@1800 10/01/19 07/28/21 History glipiZIDE [Glucotrol] 5 mg PO BID@0600,1800 10/01/19 07/28/21 History Albuterol Sulfate [Ventolin HFA] 2 puff INHALATION RT-Q4H PRN 02/01/21 07/28/21 History Ezetimibe [Zetia] 10 mg PO HS@2200 02/01/21 07/28/21 History Fluticasone Nasal [place] [Flonase 1 spray EA NOSTRIL BID@0600,1800 02/01/21 07/28/21 History Nasal [place]] Omeprazole [PriLOSEC] 20 mg PO BID@0600,1800 02/01/21 07/28/21 History Simvastatin [Zocor] 20 mg PO HS@2200 03/01/21 07/28/21 History Dicyclomine [Bentyl] 10 mg PO DAILY@0800 04/25/21 07/28/21 History Ondansetron [Zofran ODT] 8 mg PO Q12HR PRN 04/25/21 07/28/21 History Sucralfate 1 gm PO Q6H 04/25/21 07/28/21 History guaiFENesin-Coden 100-10MG/5ML 10 ml PO Q6H 04/25/21 07/28/21 History [Robitussin AC] Ibuprofen 200 mg PO Q4H 05/06/21 07/28/21 History diphenhydrAMINE [Benadryl] 25 mg PO Q6H 05/06/21 07/28/21 History Folfax Regimen 1 dose IV Q14D 06/15/21 07/28/21 History HYDROcodone/APAP [[place] Elixir 15 ml PO Q6H 06/15/21 07/28/21 History 7.5-325Mg/15Ml] INSULIN ASPART (NovoLOG) [NovoLOG See Protocol SQ ACHS 06/15/21 07/28/21 History (formulary)] Kools Solution 5 ml PO Q4H 06/15/21 07/28/21 History Lidocaine-Prilocaine Cream [Emla 1 applic TOPICAL DIRECTED 06/15/21 07/28/21 History Cream 2.5%/2.5%] Loratadine 10 mg PO DAILY@0600 06/15/21 07/28/21 History Mesalamine [Canasa] 1,000 mg RECTAL HS PRN 06/15/21 07/28/21 History Metoprolol Succinate (ER) [Toprol 50 mg PO BID@0600,1800 06/15/21 07/28/21 History XL] OLANZapine [ZyPREXA] 5 mg PO DAILY@2000 06/15/21 07/28/21 History Pembrolizumab [Keytruda] 200 mg IV Q21D 06/15/21 07/28/21 History fentaNYL 25MCG/HR PATCH [Duragesic 1 patch TRANSDERM Q3D@0800 06/15/21 07/28/21 History 25MCG/HR] Metoclopramide [Reglan] 10 mg PO BID 07/28/21 07/28/21 History Allergies Allergy/AdvReac Type Severity Reaction Status Date / Time cefazolin [From Kefzol] Allergy Rash/Hives Verified 07/28/21 07:41 Penicillins Allergy Rash/Hives Verified 07/28/21 07:41 Sulfa (Sulfonamide Allergy Rash/Hives Verified 07/28/21 07:41 Antibiotics) enalaprilat [From Vasotec] AdvReac Cough Verified 07/28/21 07:41 prochlorperazine AdvReac facial Verified 07/28/21 07:41 [From Compazine] twitching, loss of sensation of mouth Physical Exam Vitals: Vital Signs Temp Pulse Pulse Resp BP BP Pulse Ox 07/28/21 13:51 121 H 07/28/21 13:48 94 L 07/28/21 13:41 122 H 07/28/21 11:21 137 H 22 136/87 95 07/28/21 08:00 97.4 F L 128 H 20 133/74 95 07/28/21 06:26 129 H 20 132/79 94 L 07/28/21 03:26 131 H 28 H 131/89 94 L 07/28/21 01:29 130 H 07/28/21 01:26 128 H 19 130/81 94 L 07/28/21 01:18 126 H 07/28/21 01:17 126 H 07/28/21 01:07 130 H 07/28/21 00:26 117 H 20 121/74 96 07/27/21 17:22 97.9 F 118 H 22 129/78 95 Intake and Output 07/27/21 07/28/21 07/28/21 22:59 06:59 14:59 Output Total 250 Balance -250 Output: Urine 250 Other: # Voids 1 Weight 125.645 kg In general patient is alert and oriented x 3 in no distress HEENT head normocephalic and atraumatic Neck is supple no JVD no goiter no lymphadenopathy no carotid bruit Chest examination reveals a scattered bilateral crackles no wheezing Cardiac exam reveals regular heart sounds S1 and S2 no gallops no murmurs Abdomen is soft nontender no organomegaly with normal bowel sounds Extremity exam reveals no edema no cyanosis or clubbing Neurological examination reveals no gross focal deficits Results CBC & Chem 7: 07/28/21 11:18 07/28/21 11:18 Labs: Abnormal Lab Results - Last 24 Hours (Table) 07/27/21 07/27/21 07/27/21 Range/Units 21:30 21:30 21:30 WBC 14.8 H (3.8-10.6) k/uL RBC 3.14 L (4.30-5.90) m/uL Hgb 8.6 L D (13.0-17.5) gm/dL Hct 27.7 L (39.0-53.0) % RDW 17.0 H (11.5-15.5) % Neutrophils # 13.5 H (1.3-7.7) k/uL Lymphocytes # 0.7 L (1.0-4.8) k/uL PT 12.9 H (9.0-12.0) sec INR 1.2 H (<1.2) Sodium 134 L (137-145) mmol/L Potassium 3.1 L (3.5-5.1) mmol/L Carbon Dioxide 34 H (22-30) mmol/L Creatinine 0.47 L (0.66-1.25) mg/dL Glucose 153 H (74-99) mg/dL POC Glucose (mg/dL) (70-110) mg/dL Calcium 7.5 L (8.4-10.2) mg/dL Alkaline Phosphatase 148 H (38-126) U/L Total Protein 4.9 L (6.3-8.2) g/dL Albumin 2.2 L (3.5-5.0) g/dL 07/28/21 07/28/21 07/28/21 Range/Units 06:53 11:18 11:18 WBC 11.5 H (3.8-10.6) k/uL RBC 3.15 L (4.30-5.90) m/uL Hgb 8.9 L (13.0-17.5) gm/dL Hct 28.1 L (39.0-53.0) % RDW 17.5 H (11.5-15.5) % Neutrophils # 10.5 H (1.3-7.7) k/uL Lymphocytes # 0.5 L (1.0-4.8) k/uL PT 13.0 H (9.0-12.0) sec INR 1.2 H (<1.2) Sodium (137-145) mmol/L Potassium (3.5-5.1) mmol/L Carbon Dioxide (22-30) mmol/L Creatinine (0.66-1.25) mg/dL Glucose (74-99) mg/dL POC Glucose (mg/dL) 129 H (70-110) mg/dL Calcium (8.4-10.2) mg/dL Alkaline Phosphatase (38-126) U/L Total Protein (6.3-8.2) g/dL Albumin (3.5-5.0) g/dL // Range/Units 11:18 WBC (3.8-10.6) k/uL RBC (4.30-5.90) m/uL Hgb (13.0-17.5) gm/dL Hct (39.0-53.0) % RDW (11.5-15.5) % Neutrophils # (1.3-7.7) k/uL Lymphocytes # (1.0-4.8) k/uL PT (9.0-12.0) sec INR (<1.2) Sodium (137-145) mmol/L Potassium 3.3 L (3.5-5.1) mmol/L Carbon Dioxide 31 H (22-30) mmol/L Creatinine 0.45 L (0.66-1.25) mg/dL Glucose 128 H (74-99) mg/dL POC Glucose (mg/dL) (70-110) mg/dL Calcium 7.3 L (8.4-10.2) mg/dL Alkaline Phosphatase 135 H (38-126) U/L Total Protein 4.7 L (6.3-8.2) g/dL Albumin 2.1 L (3.5-5.0) g/dL Assessment and Plan Plan: Esophageal cancer with metastatic disease Acute on chronic hypoxic respiratory failure, due to bilateral pleural effusions, patient also has congestion on chest x-ray, echocardiogram ordered and cardiology consultation requested to rule out congestive heart failure Recurrent right sided pleural effusion with recent Pleurx catheter placement one month ago Underlying history of hypertension Underlying history of diabetes mellitus type 2 Underlying history of hyperlipidemia Underlying history of obstructive sleep apnea maintained on CPAP Chronic pain related to esophageal cancer maintained on narcotics for pain management Underlying history of COPD At this time patient is admitted to medical floor Home medications reviewed and reordered Pulmonary and cardiology consultation was requested For DVT prophylaxis we will use Lovenox For GI prophylaxis continue Protonix Will follow closely
[2021-07-28] MEDS ORDERED: SODIUM CHLORIDE 0.9% 1,000 ML IV STA (17:01)
[2021-07-28] MEDS: HYDROmorphone 1 MG/ML 1 ML SYRINGE IVP PRN ×2 (17:17→22:28)
[2021-07-28] MEDS: ENOXAPARIN 40 MG/0.4 ML SYRINGE SQ SCH (17:17)
[2021-07-28] MEDS: diphenhydrAMINE 25 MG CAP PO SCH ×2 (17:17→20:20)
[2021-07-28] MEDS: ALPRAZolam 0.25 MG TAB PO SCH (17:17)
[2021-07-28] MEDS: IPRATROPIUM-ALBUTEROL 3 ML NEB INHALATION SCH ×2 (17:46→20:15)
[2021-07-28] MEDS ORDERED: MELOXICAM 7.5 MG TAB PO SCH (18:00)
[2021-07-28] MEDS: SYMBICORT 80-4.5 MCG INHALER INHALATION SCH (18:33)
[2021-07-28 18:40] LABS: Appearance,Urine Cloudy (Clear); Bilirubin,Urine Negative (Negative); Blood,Urine Moderate (Negative); Color,Urine Yellow; Glucose,Urine (UA) Negative (Negative); Ketones,Urine 1+ (Negative); Leukocyte Esterase,Urine Moderate (Negative); Mucus,Urine Occasional /hpf; Nitrite,Urine Negative (Negative); Protein,Urine 1+ (Negative); RBC,Urine 50 /hpf (0-5); Specific Gravity,Urine 1.028 (1.001-1.035); Squamous Epithelial Cell,Urine <1 /hpf (0-4); WBC,Urine 11 /hpf (0-5)
[2021-07-28] MEDS: HYDROcodone/APAP 15 ML SOLUTION PO SCH ×2 (20:14→22:03)
[2021-07-28] MEDS: guaiFENesin-Coden 100-10MG/5ML 10 ML CUP PO SCH ×2 (20:14→20:33)
[2021-07-28] MEDS: FUROSEMIDE 10 MG/ML 2 ML VIAL IV SCH (20:15)
[2021-07-28] MEDS: ARTIFICIAL TEARS-HYPROMELLOSE DROPS 15 ML BTL BOTH EYES SCH (20:16)
[2021-07-28] MEDS: FLUTICASONE 50MCG/SPRAY NASAL 16GM EA NOSTRIL SCH (20:16)
[2021-07-28] MEDS: IBUPROFEN 200 MG TAB PO SCH ×3 (20:17→23:43)
[2021-07-28] MEDS: METOPROLOL SUCCINATE (ER) 50 MG TAB.ER.24H PO SCH (20:18)
[2021-07-28] MEDS: PANTOPRAZOLE 40 MG TABLET PO SCH (20:18)
[2021-07-28] MEDS: SUCRALFATE 1 GM TAB PO SCH ×2 (20:19→22:05)
[2021-07-28] MEDS: EZETIMIBE 10 MG TAB PO SCH (20:20)
[2021-07-28] MEDS: ATORVASTATIN 10 MG TAB PO SCH (20:20)
[2021-07-28] MEDS: MAG HYDROX/AL HYDROX/SIMETH 30 ML, diphenhydrAMINE ELIXIR 75 MG, LIDOCAINE VISCOUS 2% 3... PO SCH ×3 (20:20)
[2021-07-28] MEDS: METOCLOPRAMIDE 10 MG TAB PO SCH (20:20)
[2021-07-28] MEDS: glipiZIDE 5 MG TAB PO SCH (20:27)
[2021-07-28 20:28] LABS: Glucose,Whole Blood 124 mg/dL (70-110)
--- NOTE | 2021-07-28 21:28 | P.CONS ---
History of Present Illness - Reason for Consult Consult date: 07/28/21 Cancer Requesting physician: Lorna Saldaña - History of Present Illness Mr Pimentel a pleasant white male, with multiple but well-controlled medical problems at baseline. The patient has a long-standing history of GERD for many years. since early to mid December, he developed recurrent in swallowing with solids and then subsequently to liquids. This was rapidly progressive, due to which he was referred to GI by his PCP. He had an EGD on 02/03/21. This showed a distal esophageal ulcerated mass with stricturing extending from 35-41 cm from the incisors with significant luminal narrowing. There is also 2 cm proximal esophageal polypoid lesion at 25 cm. Biopsies from both areas came back positive for invasive poorly differentiated adenocarcinoma. CBC was normal with hemoglobin 15.7. Chem panel showed calcium of 10.4 and was 136 but was otherwise normal. The patient was then referred here for further evaluation and to conditions. The case was discussed in detail with the GI service and a PET scan was recommended and an subsequent he performed on 02/25/21. This showed mildly hypermetabolic subcentimeter left supraclavicular nodes, SUV 2.97, additional nodes at the level of the thyroid largest 1 x 0.9 cm SUV 5.23. There was a right supraclavicular node 1.4 cm with SUV 5.46. Moderate to severe concentric wall thickening with abnormal uptake noted starting this would've the emeli. Abnormal subcarinal adenopathy and paraesophageal adenopathy, 3 cm and 2.1 cm noted. There was also abnormal adenopathy in the mediastinum anterior to the pulmonary root . 1.9 cm right hilar node and additional abnormal right paratracheal nodes largest 1.4 cm on hypermetabolic also effect. In addition there was concern for more distant disease with mildly enlarged and prominent le ft axillary nodes 2.2 cm with SUV 8.04, and a 2.8 cm left adrenal mass SUV 8.65. Patient denied any prior history of malignancy. He had never needed to have an EGD before. The patient was quite compromised because of his dysphagia when seen in the office initial consultation, and was admitted to the emergency room where he was admitted. He was supported with IV hydration. Case was discussed with gastroenetrology subsequently did an EGD and placed a stent. Post stent placement the patient's condition did improve. He also received short-term TPN while in the hospital. He was then able to be discharged. He then proceeded to palliative radiation to the primary site, completing the same on 03/29/21 Patient then started chemotherapy with FOLFOX on 04/15/21. He is status post 3 cycles. Keytruda Q 3 wks was added with C 2 Biomarker testing did not reveal any actionable mutations for the first line. Cycle 2 of FOLFOX was delayed as the patient's report was malfunctioning. He required port removal and replacement. He had developed progressive pleural effusion requiring thoracentesis, with positive cytology according to him, in early 05/27. He denies any fever or chills/v. He has intermittent nausea and mid chest pain, that appears to be most consistent with esophageal spasms clinically. Intake of solids has improved. The patient states that he can tolerate soft foods quite well , although he has to take small amounts at a time. Swallowing with liquids appears to be fairly normal. Taste alteration remains a problem. Problems with upper airway secretions has improved significantly. Generalized weakness persists with the patient states that he is overall stronger. Review of systems otherwise as per HPI and negative out of 10 06/22/21-Pt here for f/u, he was admitted to hospital last week for SOB, he had a pleurex cath placed, rt chest wall pleurex is functioning, they got out 275cc this am. The area around the drain has a bruise and some swelling, there is "flow" of fluid from around the catheter, changing the bandange about 3 times a day and the bandages are soaked clear fluid, no foul odor. Breathing is decent, deeper breath with less pain. Mild constipation that he treats with stool softeners and senna. So fatigued that it is difficult to get upstairs. Sometimes he has nausea, uses zofran. Status post cycle 5 FOLFOX, presented yesterday to see BICYCLE REPAIRMAN Mally Jones and was not feeling well and therefore sent to hospital ER for further evaluation. Requiing oxygen, HR 120s-130. Infectious work-up. Chest xray on admission increased left sided increased pleural effusion. He was seen while awaiting room in ER, He is sitting on side of bed. Has not been able to take fluid of lungs through pleurex, and cannot lay back as he is unable to breathe. He is in distress Chest xray shows increased left sided pleural effusion, pulmonary has been consulted. Review of Systems All systems: negative Constitutional: Reports as per HPI Past Medical History Past Medical History: Asthma, Cancer, COPD, Diabetes Mellitus, GERD/Reflux, Hyp erlipidemia, Hypertension, Osteoarthritis (OA), Sleep Apnea/CPAP/BIPAP Additional Past Medical History / Comment(s): uses CPAP, occ. 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) History of Any Multi-Drug Resistant Organisms: None Reported Past Surgical History: Hernia Repair, Joint Replacement, Orthopedic Surgery Additional Past Surgical History / Comment(s): cystoscopy, both knees replaced, multiple arthroscopies knees, colonoscopies, dental implant, right hip replaced, stent in esophabus 02/03/21, port rt side inserted 03/2021, esophageal stent placed and port inserted 04/26/21 Past Anesthesia/Blood Transfusion Reactions: Previous Problems w/ Anesthesia, Family History of Problems w/ Anesthesia, Motion Sickness Additional Past Anesthesia/Blood Transfusion Reaction / Comm: very combative when waking up from general anesthesia, anxious & agitated w/IV sedation,. mother ponv Past Psychological History: Anxiety Smoking Status: Never smoker Past Alcohol Use History: None Reported Past Drug Use History: None Reported - Past Family History Father Brother(s) Family Medical History: Cancer, Deep Vein Thrombosis (DVT) Additional Family Medical History / Comment(s): colon cancer Mother Family Medical History: Cancer Additional Family Medical History / Comment(s): . Father Family Medical History: Cancer Additional Family Medical History / Comment(s): Small intestine cancer with mets Brother(s) Family Medical History: Cancer Sister(s) Family Medical History: Cancer Medications and Allergies Home Medications Medication Instructions Recorded Confirmed Type ALPRAZolam [Xanax] 0.25 mg PO TID@0600,1200,1800 01/28/16 07/28/21 History Optive Eye Drops 1 drop BOTH EYES BID@0600,1800 01/28/16 07/28/21 History Fluticasone Propion/Salmeterol 1 puff INHALATION RT-BID@0600,1800 10/01/19 07/28/21 History [Advair 100-50 Diskus] Meloxicam [Mobic] 7.5 mg PO DAILY@1800 10/01/19 07/28/21 History glipiZIDE [Glucotrol] 5 mg PO BID@0600,1800 10/01/19 07/28/21 History Albuterol Sulfate [Ventolin HFA] 2 puff INHALATION RT-Q4H PRN 02/01/21 07/28/21 History Ezetimibe [Zetia] 10 mg PO HS@2200 02/01/21 07/28/21 History Fluticasone Nasal [place] [Flonase 1 spray EA NOSTRIL BID@0600,1800 02/01/21 07/28/21 History Nasal [place]] Omeprazole [PriLOSEC] 20 mg PO BID@0600,1800 02/01/21 07/28/21 History Simvastatin [Zocor] 20 mg PO HS@2200 03/01/21 07/28/21 History Dicyclomine [Bentyl] 10 mg PO DAILY@0800 04/25/21 07/28/21 History Ondansetron [Zofran ODT] 8 mg PO Q12HR PRN 04/25/21 07/28/21 History Sucralfate 1 gm PO Q6H 04/25/21 07/28/21 History guaiFENesin-Coden 100-10MG/5ML 10 ml PO Q6H 04/25/21 07/28/21 History [Robitussin AC] Ibuprofen 200 mg PO Q4H 05/06/21 07/28/21 History diphenhydrAMINE [Benadryl] 25 mg PO Q6H 05/06/21 07/28/21 History Folfax Regimen 1 dose IV Q14D 06/15/21 07/28/21 History HYDROcodone/APAP [Vida Elixir 15 ml PO Q6H 06/15/21 07/28/21 History 7.5-325Mg/15Ml] INSULIN ASPART (NovoLOG) [NovoLOG See Protocol SQ ACHS 06/15/21 07/28/21 History (formulary)] Kools Solution 5 ml PO Q4H 06/15/21 07/28/21 History Lidocaine-Prilocaine Cream [Emla 1 applic TOPICAL DIRECTED 06/15/21 07/28/21 History Cream 2.5%/2.5%] Loratadine 10 mg PO DAILY@0600 06/15/21 07/28/21 History Mesalamine [Canasa] 1,000 mg RECTAL HS PRN 06/15/21 07/28/21 History Metoprolol Succinate (ER) [Toprol 50 mg PO BID@0600,1800 06/15/21 07/28/21 History XL] OLANZapine [ZyPREXA] 5 mg PO DAILY@2000 06/15/21 07/28/21 History Pembrolizumab [Keytruda] 200 mg IV Q21D 06/15/21 07/28/21 History fentaNYL 25MCG/HR PATCH [Duragesic 1 patch TRANSDERM Q3D@0800 06/15/21 07/28/21 History 25MCG/HR] Metoclopramide [Reglan] 10 mg PO BID 07/28/21 07/28/21 History Allergies Allergy/AdvReac Type Severity Reaction Status Date / Time cefazolin [From Kefzol] Allergy Rash/Hives Verified 07/28/21 07:41 Penicillins Allergy Rash/Hives Verified 07/28/21 07:41 Sulfa (Sulfonamide Allergy Rash/Hives Verified 07/28/21 07:41 Antibiotics) enalaprilat [From Vasotec] AdvReac Cough Verified 07/28/21 07:41 prochlorperazine AdvReac facial Verified 07/28/21 07:41 [From Compazine] twitching, loss of sensation of mouth Physical Exam Vitals: Vital Signs Temp Pulse Resp BP Pulse Ox 07/28/21 06:26 129 H 20 132/79 94 L 07/28/21 03:26 131 H 28 H 131/89 94 L 07/28/21 01:29 130 H 07/28/21 01:26 128 H 19 130/81 94 L 07/28/21 01:18 126 H 07/28/21 01:17 126 H 07/28/21 01:07 130 H 07/28/21 00:26 117 H 20 121/74 96 07/27/21 17:22 97.9 F 118 H 22 129/78 95 Intake and Output 07/27/21 07/28/21 07/28/21 22:59 06:59 14:59 Other: Weight 125.645 kg - Constitutional General appearance: cooperative, mild distress - EENT Eyes: EOMI ENT: NA/AT - Neck Neck: normal ROM - Respiratory Respiratory: left: diminished - Cardiovascular Rhythm: regularly irregular - Gastrointestinal General gastrointestinal: soft - Integumentary Integumentary: pale - Neurologic Neurologic: CNII-XII intact - Musculoskeletal Musculoskeletal: generalized weakness - Psychiatric Psychiatric: A&O x's 3 Results CBC & Chem 7: 07/28/21 11:18 07/28/21 11:18 Labs: Abnormal Lab Results - Last 24 Hours (Table) 07/27/21 07/27/21 07/27/21 Range/Units 21:30 21:30 21:30 WBC 14.8 H (3.8-10.6) k/uL RBC 3.14 L (4.30-5.90) m/uL Hgb 8.6 L D (13.0-17.5) gm/dL Hct 27.7 L (39.0-53.0) % RDW 17.0 H (11.5-15.5) % Neutrophils # 13.5 H (1.3-7.7) k/uL Lymphocytes # 0.7 L (1.0-4.8) k/uL PT 12.9 H (9.0-12.0) sec INR 1.2 H (<1.2) Sodium 134 L (137-145) mmol/L Potassium 3.1 L (3.5-5.1) mmol/L Carbon Dioxide 34 H (22-30) mmol/L Creatinine 0.47 L (0.66-1.25) mg/dL Glucose 153 H (74-99) mg/dL POC Glucose (mg/dL) (70-110) mg/dL Calcium 7.5 L (8.4-10.2) mg/dL Alkaline Phosphatase 148 H (38-126) U/L Total Protein 4.9 L (6.3-8.2) g/dL Albumin 2.2 L (3.5-5.0) g/dL 07/28/21 Range/Units 06:53 WBC (3.8-10.6) k/uL RBC (4.30-5.90) m/uL Hgb (13.0-17.5) gm/dL Hct (39.0-53.0) % RDW (11.5-15.5) % Neutrophils # (1.3-7.7) k/uL Lymphocytes # (1.0-4.8) k/uL PT (9.0-12.0) sec INR (<1.2) Sodium (137-145) mmol/L Potassium (3.5-5.1) mmol/L Carbon Dioxide (22-30) mmol/L Creatinine (0.66-1.25) mg/dL Glucose (74-99) mg/dL POC Glucose (mg/dL) 129 H (70-110) mg/dL Calcium (8.4-10.2) mg/dL Alkaline Phosphatase (38-126) U/L Total Protein (6.3-8.2) g/dL Albumin (3.5-5.0) g/dL Abdominal x-ray: report reviewed Assessment and Plan (1) Pleural effusion, left Narrative/Plan: Thoracentesis needed as patient is uncomfortable, await for pulmonary recs Current Visit: Yes Status: Acute Code(s): J90 - PLEURAL EFFUSION, NOT ELSEWHERE CLASSIFIED SNOMED Code(s): 81568859 (2) Esophageal cancer Narrative/Plan: Chemo on hold until acute situation resolved Current Visit: Yes Status: Acute Priority: High Code(s): C15.9 - MALIGNANT NEOPLASM OF ESOPHAGUS, UNSPECIFIED SNOMED Code(s): 593281843 (3) Acute respiratory failure with hypoxia Narrative/Plan: PLeural effusion possible underlying infection positive thick colored productive sputum. Current Visit: No Status: Acute Code(s): J96.01 - ACUTE RESPIRATORY FAILURE WITH HYPOXIA SNOMED Code(s): 45886945
[2021-07-28] MEDS: OLANZapine 5 MG TAB PO SCH (21:52)
[2021-07-29] MEDS: FUROSEMIDE 10 MG/ML 2 ML VIAL IV SCH ×3 (01:33→15:41)
[2021-07-29] MEDS: MAG HYDROX/AL HYDROX/SIMETH 30 ML, diphenhydrAMINE ELIXIR 75 MG, LIDOCAINE VISCOUS 2% 3... PO SCH ×18 (01:34→19:45)
[2021-07-29] MEDS: IBUPROFEN 200 MG TAB PO SCH ×3 (04:36→15:46)
[2021-07-29] MEDS: SUCRALFATE 1 GM TAB PO SCH ×3 (04:39→17:43)
[2021-07-29] MEDS: diphenhydrAMINE 25 MG CAP PO SCH ×4 (04:57→22:16)
[2021-07-29] MEDS: HYDROcodone/APAP 15 ML SOLUTION PO SCH ×5 (04:58→22:17)
[2021-07-29] MEDS: guaiFENesin-Coden 100-10MG/5ML 10 ML CUP PO SCH ×4 (04:58→22:16)
[2021-07-29] MEDS: LORATADINE 10 MG TAB PO SCH (04:59)
[2021-07-29] MEDS: ARTIFICIAL TEARS-HYPROMELLOSE DROPS 15 ML BTL BOTH EYES SCH ×2 (04:59→17:42)
[2021-07-29] MEDS: FLUTICASONE 50MCG/SPRAY NASAL 16GM EA NOSTRIL SCH ×2 (04:59→17:42)
[2021-07-29] MEDS: PANTOPRAZOLE 40 MG TABLET PO SCH ×2 (04:59→17:43)
[2021-07-29] MEDS: ALPRAZolam 0.25 MG TAB PO SCH ×3 (04:59→17:43)
[2021-07-29] MEDS: glipiZIDE 5 MG TAB PO SCH ×2 (04:59→17:51)
[2021-07-29] MEDS: METOPROLOL SUCCINATE (ER) 50 MG TAB.ER.24H PO SCH ×2 (04:59→17:43)
[2021-07-29] MEDS: HYDROmorphone 1 MG/ML 1 ML SYRINGE IVP PRN ×4 (05:00→20:07)
[2021-07-29 07:03] LABS: Glucose,Whole Blood 117 mg/dL (70-110)
[2021-07-29] MEDS: IPRATROPIUM-ALBUTEROL 3 ML NEB INHALATION SCH ×4 (07:07→19:27)
[2021-07-29] MEDS: SYMBICORT 80-4.5 MCG INHALER INHALATION SCH ×2 (07:07→19:28)
[2021-07-29] MEDS: DICYCLOMINE 10 MG CAP PO SCH (08:42)
[2021-07-29] MEDS: ENOXAPARIN 40 MG/0.4 ML SYRINGE SQ SCH (08:44)
--- NOTE | 2021-07-29 08:49 | XR ---
EXAMINATION TYPE: XR chest 1V portable DATE OF EXAM: 07/29/2021 HISTORY: Shortness of breath. COMPARISON: 07/27/2021 TECHNIQUE: Single view of the chest is submitted. FINDINGS: Demonstrated are scattered senescent parenchymal change. Persistent bilateral pleural effusions right greater than left no evidence for pneumothorax. Patchy u nderlying infiltrates and/or atelectasis. Hilar and mediastinal structures are within normal limits. Degenerative changes are seen of the dorsal spine. IMPRESSION: 1. Persistent bilateral pleural effusions right greater than left no evidence for pneumothorax. Patc hy underlying infiltrates and/or atelectasis.
[2021-07-29 09:07] LABS: Basophils # (A) 0.03 X 10*3/uL (0.00-0.10); Basophils % (A) 0.4 %; Eosinophils # (A) 0.03 X 10*3/uL (0.04-0.35); Eosinophils % (A) 0.4 %; HCT 26.7 % (39.6-50.0); Immature Grans, Automated 0.4 %; Lymphocytes # (A) 0.48 X 10*3/uL (0.90-5.00); Lymphocytes % (A) 6.4 %; MCH 26.2 pg (27.0-32.0); MCV 87.5 fL (80.0-97.0); Mean Platelet Volume 9.3 fL (9.5-12.2); Monocytes # (A) 0.53 X 10*3/uL (0.20-1.00); NRBC Per 100 WBC 0 /100 WBCS (0.0-0.0); Neutrophils # (A) 6.44 X 10*3/uL (1.80-7.70); Neutrophils % (A) 85.4 %; Platelet Count 265 X 10*3/uL (140-440); RBC 3.05 X 10*6/uL (4.40-5.60); RDW 17.5 % (11.5-14.5); WBC 7.54 X 10*3/uL (4.50-10.00)
[2021-07-29 09:18] LABS: African American GFR (CKD) 128.1 (60.0-200.0); Albumin/Globulin Ratio 0.8 (1.60-3.17); Anion Gap 9.9 mmol/L (10.00-18.00); BUN/Creat Ratio 19.8 Ratio (12.00-20.00); Blood Urea Nitrogen 9.9 mg/dL (9.0-27.0); Calcium 7.7 mg/dL (8.7-10.3); Carbon Dioxide 28.1 mmol/L (20.0-27.5); Globulin 2.5 g/dL (1.6-3.3); Magnesium 1.8 mg/dL (1.5-2.4); Non-African American GFR(CKD) 110.6 (60.0-200.0); Total Bilirubin 0.4 mg/dL (0.30-1.20); Total Protein 4.5 g/dL (6.2-8.2)
[2021-07-29] MEDS ORDERED: Potassium Replacement Protocol 1 EACH MISC MISCELLANE PRN (09:42)
--- NOTE | 2021-07-29 09:45 | P.PN ---
Subjective Progress Note Date: 07/29/21 Xiang Pimentel, 70-year-old male patient who presented to [facility] emergency room with a chief complaint of worsening shortness of breath patient has a known history of esophageal cancer, he has chronic right sided pleural effusion, he had a right-sided Pleurx catheter placement on 06/17/2021 and fluid was positive for metastatic adenocarcinoma. He was evaluated in the emergency room vital examination on presentation revealed a temperature of 97.9 pulse 118 respiration 22 blood pressure 129/78 pulse ox 95% on 3 L nasal cannula Laboratory data reveals a white blood count of 14.8 hemoglobin 8.6 platelet count 349 sodium 134 potassium 3.1 chloride 99 CO2 34 BUN 12 creatinine 0.47 Testing in the emergency room revealed chest x-ray done in the emergency room revealed evidence of congestive heart failure with pleural effusions, fluid increased on the left side compared to old exam Patient was admitted to medical floor for further evaluation and treatment cardiology and pulmonary consultation were requested Past medical history history of hypertension, hyperlipidemia, diabetes mellitus, obstructive sleep apnea utilizing CPAP osteoarthritis with multiple orthopedic surgeries, nonsmoker. The patient also has a history of esophageal cancer with previous stent placed in April 2021. 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 On 07/09/2021 patient's alert and oriented 3. Patient underwent arthrocentesis the same on the left side per Dr. Ling. Patient reports significant improvement with pain and breathing. Talks about possible feeding tube per patient and . At this time patient denies chest pain. Patient denies nausea vomiting or diarrhea. Patient denies any urinary burning or frequency Objective - Vital Signs Vital signs: Vital Signs Temp 97.6 F 07/29/21 04:34 Pulse 111 H 07/29/21 07:21 Resp 18 07/29/21 04:34 BP 146/80 07/29/21 04:34 Pulse Ox 98 07/29/21 07:11 FiO2 Intake & Output 07/28/21 07/29/21 07/29/21 18:59 06:59 18:59 Intake Total 240 Output Total 250 Balance -250 240 Weight 125.645 kg Intake: Intake, IV Titration 240 Amount Sodium Chloride 0.9% 1, 240 000 ml @ 20 mls/hr IV . Q24H STA Rx#:[id number] Output: Urine 250 Other: Voiding Method Toilet # Voids 1 - Exam In general patient is alert and oriented x 3 in no distress HEENT head normocephalic and atraumatic Neck is supple no JVD no goiter no lymphadenopathy no carotid bruit Chest examination reveals a scattered bilateral crackles no wheezing Cardiac exam reveals regular heart sounds S1 and S2 no gallops no murmurs Abdomen is soft nontender no organomegaly with normal bowel sounds Extremity exam reveals no edema no cyanosis or clubbing Neurological examination reveals no gross focal deficits - Labs CBC & Chem 7: 07/29/21 06:31 07/29/21 06:31 Labs: Abnormal Lab Results - Last 24 Hours (Table) 07/28/21 07/28/21 07/28/21 Range/Units 11:18 11:18 11:18 WBC 11.5 H (3.8-10.6) k/uL RBC 3.15 L (4.30-5.90) m/uL Hgb 8.9 L (13.0-17.5) gm/dL Hct 28.1 L (39.0-53.0) % MCH (27.0-32.0) pg MCHC (32.0-37.0) g/dL RDW 17.5 H (11.5-15.5) % MPV (9.5-12.2) fL Neutrophils # 10.5 H (1.3-7.7) k/uL Lymphocytes # 0.5 L (1.0-4.8) k/uL Eosinophils # (0.04-0.35) X 10*3/uL PT 13.0 H (9.0-12.0) sec INR 1.2 H (<1.2) Potassium 3.3 L (3.5-5.1) mmol/L Carbon Dioxide 31 H (22-30) mmol/L Anion Gap (10.00-18.00) mmol/L Creatinine 0.45 L (0.66-1.25) mg/dL Glucose 128 H (74-99) mg/dL POC Glucose (mg/dL) (70-110) mg/dL Calcium 7.3 L (8.4-10.2) mg/dL Alkaline Phosphatase 135 H (38-126) U/L Total Protein 4.7 L (6.3-8.2) g/dL Albumin 2.1 L (3.5-5.0) g/dL Albumin/Globulin Ratio (1.60-3.17) g/dL Urine Protein (Negative) Urine Ketones (Negative) Urine Blood (Negative) Ur Leukocyte Esterase (Negative) Urine RBC (0-5) /hpf Urine WBC (0-5) /hpf Urine Mucus (None) /hpf 07/28/21 07/28/21 07/29/21 Range/Units 18:15 20:26 06:31 WBC (3.8-10.6) k/uL RBC 3.05 L (4.30-5.90) m/uL Hgb 8.0 L (13.0-17.5) gm/dL Hct 26.7 L (39.0-53.0) % MCH 26.2 L (27.0-32.0) pg MCHC 30.0 L (32.0-37.0) g/dL RDW 17.5 H (11.5-15.5) % MPV 9.3 L (9.5-12.2) fL Neutrophils # (1.3-7.7) k/uL Lymphocytes # 0.48 L (1.0-4.8) k/uL Eosinophils # 0.03 L (0.04-0.35) X 10*3/uL PT (9.0-12.0) sec INR (<1.2) Potassium (3.5-5.1) mmol/L Carbon Dioxide (22-30) mmol/L Anion Gap (10.00-18.00) mmol/L Creatinine (0.66-1.25) mg/dL Glucose (74-99) mg/dL POC Glucose (mg/dL) 124 H (70-110) mg/dL Calcium (8.4-10.2) mg/dL Alkaline Phosphatase (38-126) U/L Total Protein (6.3-8.2) g/dL Albumin (3.5-5.0) g/dL Albumin/Globulin Ratio (1.60-3.17) g/dL Urine Protein 1+ H (Negative) Urine Ketones 1+ H (Negative) Urine Blood Moderate H (Negative) Ur Leukocyte Esterase Moderate H (Negative) Urine RBC 50 H (0-5) /hpf Urine WBC 11 H (0-5) /hpf Urine Mucus Occasional H (None) /hpf 07/29/21 07/29/21 Range/Units 06:31 07:02 WBC (3.8-10.6) k/uL RBC (4.30-5.90) m/uL Hgb (13.0-17.5) gm/dL Hct (39.0-53.0) % MCH (27.0-32.0) pg MCHC (32.0-37.0) g/dL RDW (11.5-15.5) % MPV (9.5-12.2) fL Neutrophils # (1.3-7.7) k/uL Lymphocytes # (1.0-4.8) k/uL Eosinophils # (0.04-0.35) X 10*3/uL PT (9.0-12.0) sec INR (<1.2) Potassium 3.0 L (3.5-5.1) mmol/L Carbon Dioxide 28.1 H (22-30) mmol/L Anion Gap 9.90 L (10.00-18.00) mmol/L Creatinine 0.5 L (0.66-1.25) mg/dL Glucose 112 H (74-99) mg/dL POC Glucose (mg/dL) 117 H (70-110) mg/dL Calcium 7.7 L (8.4-10.2) mg/dL Alkaline Phosphatase 128 H (38-126) U/L Total Protein 4.5 L (6.3-8.2) g/dL Albumin 2.0 L (3.5-5.0) g/dL Albumin/Globulin Ratio 0.80 L (1.60-3.17) g/dL Urine Protein (Negative) Urine Ketones (Negative) Urine Blood (Negative) Ur Leukocyte Esterase (Negative) Urine RBC (0-5) /hpf Urine WBC (0-5) /hpf Urine Mucus (None) /hpf Microbiology - Last 24 Hours (Table) 07/28/21 18:15 Urine Culture - Preliminary Urine,Clean Catch 07/27/21 21:45 Blood Culture - Preliminary Blood No Growth after 24 hours 07/27/21 21:30 Blood Culture - Preliminary Blood No Growth after 24 hours Assessment and Plan Plan: Esophageal cancer with metastatic disease Acute on chronic hypoxic respiratory failure, due to bilateral pleural effusions, patient also has congestion on chest x-ray, echocardiogram ordered and cardiology consultation requested to rule out congestive heart failure Recurrent right sided pleural effusion with recent Pleurx catheter placement one month ago Underlying history of hypertension Underlying history of diabetes mellitus type 2 Underlying history of hyperlipidemia Underlying history of obstructive sleep apnea maintained on CPAP Chronic pain related to esophageal cancer maintained on narcotics for pain management Underlying history of COPD At this time patient is admitted to medical floor Home medications reviewed and reordered Pulmonary and cardiology consultation was requested Status post thoracentesis on 07/29/2021 For DVT prophylaxis we will use Lovenox For GI prophylaxis continue Protonix Will follow closely
[2021-07-29] MEDS: METOCLOPRAMIDE 10 MG TAB PO SCH ×2 (10:16→22:16)
[2021-07-29] MEDS: POTASSIUM CHLORIDE 10 MEQ in WATER FOR INJECTION 1 100ML.BAG IVPB SCH ×4 (11:14→15:40)
[2021-07-29 11:39] LABS: Glucose,Whole Blood 123 mg/dL (70-110)
--- NOTE | 2021-07-29 11:57 | PCN ---
PROCEDURE NOTE PROCEDURE: Left-sided thoracentesis. PREOP DIAGNOSIS: Left pleural effusion. POSTOP DIAGNOSIS: Left pleural effusion. TELEGRAPH DISPATCHER: Dr. Ling and Dr. Mayorga. There was informed consent and universal timeout. The patient's procedure took place in the patient's room. 1.5 L of bloody dark brown fluid was removed from the left pleural space. The patient tolerated the procedure well. The posterior back was marked by ultrasound. The fluid will be sent for analysis including chemistry, cytology, microbiology. There was no immediate complication. The patient tolerated the procedure well. A chest x-ray was ordered to rule out pneumothorax. MMODL / IJN: [id number] /
[2021-07-29] MEDS: LEVOFLOXACIN 500MG-D5W PMX 500 MG in DEXTROSE/WATER 1 100ML.BAG IVPB SCH (12:03)
--- NOTE | 2021-07-29 12:21 | P.PN ---
Subjective Progress Note Date: 07/29/21 Principal diagnosis: Left pleural effusion, shortness of breath This is a very pleasant 70-year-old male patient with a history of hypertension, hyperlipidemia, diabetes mellitus, obstructive sleep apnea utilizing CPAP osteoarthritis with multiple orthopedic surgeries, nonsmoker. The patient also has a history of esophageal cancer with previous stent placed in April 2021. Th is is adenocarcinoma of the esophagus that has since metastasizes the patient had recurrent bilateral pleural effusions and previous thoracentesis. Most recently he had a right-sided Pleurx catheter placement on 06/17/2021 and fluid was positive for metastatic adenocarcinoma. He is currently on Keytruda. He had been having decreased amounts of pleural fluid that he had been draining at home. Less than 25-50 mL now. He presented here to the emergency room yesterday with complaints of increasing shortness of breath and is now found to have a large left-sided pleural effusion. Ultrasound of the left chest reveals a 12.5 cm pocket. I count 14.8. Hemoglobin 8.6. Platelets 349. INR 1.2. Sodium 134. Potassium 3.1. BUN 12. Creatinine 0.47. AST 20. ALT 10. Blood glucose 153. He is seen today in consultation in the emergency department. He's currently resting fairly comfortable on the stretcher. Awake and alert in no acute distress. He is maintaining O2 saturations in the 90s on 2 L/m per nasal cannula. He has 0.9% normal saline at 130 ML's per hour. He is dyspneic with exertion. He also states he is quite fatigued and weak today. The patient was seen in follow-up on 07/29/2021. He is currently sitting up at the bedside. Awake and alert in no acute distress. He is maintaining O2 saturations in the mid 90s on 4 L/m per nasal cannula. He's been afebrile. Hemodynamically stable. Chest x-ray had revealed bilateral pleural effusions left greater than right. He has a right-sided Pleurx catheter in place. He did undergo a left-sided thoracentesis today with 1.5 L of bloody fluid returned. Fluid analysis and cytology are pending. Follow-up chest x-ray revealed no evidence of pneumothorax. Blood culture reveals no growth. Urine culture pending. White count 7.5. Hemoglobin 8.0. Platelet count 265,000. Sodium 140. Potassium 3.0. BUN 10. Creatinine 0.5. Glucose 112. He remains on Symbicort, DuoNeb inhalations, antibiotics in the form of Levaquin. Lovenox for DVT prophylaxis. Objective - Vital Signs Vital signs: Vital Signs Temp 97.6 F 07/29/21 04:34 Pulse 110 H 07/29/21 11:35 Resp 18 07/29/21 04:34 BP 146/80 07/29/21 04:34 Pulse Ox 98 07/29/21 07:11 FiO2 Intake & Output 07/28/21 07/29/21 07/29/21 18:59 06:59 18:59 Intake Total 240 Output Total 250 Balance -250 240 Weight 125.645 kg Intake: Intake, IV Titration 240 Amount Sodium Chloride 0.9% 1, 240 000 ml @ 20 mls/hr IV . Q24H STA Rx#:[id number] Output: Urine 250 Other: Voiding Method Toilet # Voids 1 - Exam GENERAL EXAM: Alert, very pleasant 70-year-old male patient, on 4 L nasal cannula, fairly comfortable in no apparent distress. HEAD: Normocephalic. EYES: Normal reaction of pupils, equal size. NOSE: Clear with pink turbinates. THROAT: No erythema or exudates. NECK: No masses, no JVD. CHEST: No chest wall deformity. Right-sided Mediport in place. Right-sided Pleurx catheter in place. LUNGS: Equal air entry with bibasilar crackles left greater than right. Diminished in the left lung base. CVS: S1 and S2 normal with no audible murmur, regular rhythm. ABDOMEN: No hepatosplenomegaly, normal bowel sounds, no guarding or rigidity. SPINE: No scoliosis or deformity SKIN: No rashes CENTRAL NERVOUS SYSTEM: No focal deficits, tone is normal in all 4 extremities. EXTREMITIES: There is no peripheral edema. No clubbing, no cyanosis. Peripheral pulses are intact. - Labs CBC & Chem 7: 07/29/21 06:31 07/29/21 06:31 Labs: Abnormal Lab Results - Last 24 Hours (Table) 07/28/21 07/28/21 07/29/21 Range/Units 18:15 20:26 06:31 RBC 3.05 L (4.40-5.60) X 10*6/uL Hgb 8.0 L (13.0-17.0) g/dL Hct 26.7 L (39.6-50.0) % MCH 26.2 L (27.0-32.0) pg MCHC 30.0 L (32.0-37.0) g/dL RDW 17.5 H (11.5-14.5) % MPV 9.3 L (9.5-12.2) fL Lymphocytes # 0.48 L (0.90-5.00) X 10*3/uL Eosinophils # 0.03 L (0.04-0.35) X 10*3/uL Potassium (3.5-5.5) mmol/L Carbon Dioxide (20.0-27.5) mmol/L Anion Gap (10.00-18.00) mmol/L Creatinine (0.6-1.5) mg/dL Glucose (70-110) mg/dL POC Glucose (mg/dL) 124 H (70-110) mg/dL Calcium (8.7-10.3) mg/dL Alkaline Phosphatase (41-126) U/L Total Protein (6.2-8.2) g/dL Albumin (3.8-4.9) g/dL Albumin/Globulin Ratio (1.60-3.17) g/dL Urine Protein 1+ H (Negative) Urine Ketones 1+ H (Negative) Urine Blood Moderate H (Negative) Ur Leukocyte Esterase Moderate H (Negative) Urine RBC 50 H (0-5) /hpf Urine WBC 11 H (0-5) /hpf Urine Mucus Occasional H (None) /hpf 07/29/21 07/29/21 07/29/21 Range/Units 06:31 07:02 11:36 RBC (4.40-5.60) X 10*6/uL Hgb (13.0-17.0) g/dL Hct (39.6-50.0) % MCH (27.0-32.0) pg MCHC (32.0-37.0) g/dL RDW (11.5-14.5) % MPV (9.5-12.2) fL Lymphocytes # (0.90-5.00) X 10*3/uL Eosinophils # (0.04-0.35) X 10*3/uL Potassium 3.0 L (3.5-5.5) mmol/L Carbon Dioxide 28.1 H (20.0-27.5) mmol/L Anion Gap 9.90 L (10.00-18.00) mmol/L Creatinine 0.5 L (0.6-1.5) mg/dL Glucose 112 H (70-110) mg/dL POC Glucose (mg/dL) 117 H 123 H (70-110) mg/dL Calcium 7.7 L (8.7-10.3) mg/dL Alkaline Phosphatase 128 H (41-126) U/L Total Protein 4.5 L (6.2-8.2) g/dL Albumin 2.0 L (3.8-4.9) g/dL Albumin/Globulin Ratio 0.80 L (1.60-3.17) g/dL Urine Protein (Negative) Urine Ketones (Negative) Urine Blood (Negative) Ur Leukocyte Esterase (Negative) Urine RBC (0-5) /hpf Urine WBC (0-5) /hpf Urine Mucus (None) /hpf Microbiology - Last 24 Hours (Table) 07/28/21 18:15 Urine Culture - Preliminary Urine,Clean Catch 07/27/21 21:45 Blood Culture - Preliminary Blood No Growth after 24 hours 07/27/21 21:30 Blood Culture - Preliminary Blood No Growth after 24 hours Assessment and Plan Assessment: 1 Acute on chronic hypoxic respiratory failure secondary to a moderate size left pleural effusion secondary to metastatic adenocarcinoma of the esophagus. Status post left-sided thoracentesis with 1.5 L of bloody fluid returned on 07/29/2021. Fluid analysis and cytology pending. 2 Metastatic adenocarcinoma of the esophagus 3 Recurrent right-sided pleural effusion, status post Pleurx catheter placement on 06/17/2021 4 Chronic dysphagia 5 History of COPD 6 Diabetes mellitus, type II 7 Hypertension 8 Hyperlipidemia 9 Osteoarthritis 10 Obstructive sleep apnea on CPAP 11 History of anxiety Plan: The patient was seen and evaluated Chest x-ray, medications and labs reviewed Left-sided thoracentesis performed today with 1.5 L of bloody fluid returned No pneumothorax on follow-up chest x-ray Fluid analysis and cytology pending Titrate the FiO2 as tolerated The patient could be discharged home today from the pulmonary standpoint Follow up in the office in 1-2 weeks' I have personally seen and examined the patient, performed the documentation and the assessment and plan as written. Number of minutes spent on the visit: 10.
--- NOTE | 2021-07-29 14:25 | P.GSCN ---
History of Present Illness Consult date: 07/29/21 History of present illness: CHIEF COMPLAINT: Shortness of breath HISTORY OF PRESENT ILLNESS: This is a 70-year-old male with a known history of esophageal cancer. Patient had esophageal stent placed in February 2021 due to patient having difficulty swallowing. Since then patient reports that he has had some improvement in his swallowing. However, he still has been having significant pain with eating and even taking his pills. He denies any nausea or vomiting. He has had a significant weight loss. He is unable to to get the appropriate nutrition intake orally. He presents to the hospital with complaints of worsening shortness of breath and was found to have a left pleural effusion. He underwent thoracentesis today with 1.5 L removed. Patient has a chronic right-sided pleural effusion with Pleurx catheter. Surgical service has been consulted for PEG tube placement. PAST MEDICAL HISTORY: See list. PAST SURGICAL HISTORY: See list. MEDICATIONS: See list. ALLERGIES: See list. SOCIAL HISTORY: No illicit drug use. REVIEW OF SYSTEMS: CONSTITUTIONAL: Denies fever or chills. HEENT: Denies blurred vision, vision changes, or eye pain. Denies hemoptysis CARDIOVASCULAR: Denies chest pain or pressure. RESPIRATORY: No shortness of breath. GASTROINTESTINAL: See HPI for pertinent findings HEMATOLOGIC: Denies bleeding disorders. GENITOURINARY: Denies any blood in urine or increased urinary frequency. SKIN: Denies pruitis. Denies rash. PHYSICAL EXAM: VITAL SIGNS: Reviewed GENERAL: Well-developed in no acute distress. HEENT: No sclera icterus. Extraocular movements grossly intact. Moist buccal mucosa. Head is atraumatic, normocephalic. No nasal drainage. ABDOMEN: Soft. Nondistended. Nontender NEUROLOGIC: Alert and oriented. Cranial nerves II through XII grossly intact. LABORATORY DATA: WBC 14.8 down to 7.5 for hemoglobin 8.0 platelets 265 Sodium 140 potassium 3.0 creatinine 0.5 Glucose 112 Magnesium 1.8 Albumin 2.0 IMAGING: Chest x-ray persistent bilateral pleural effusions right greater than left no evidence for pneumothorax. Patchy underlying infiltrates and/or atelectasis ASSESSMENT: 1. Esophageal cancer 2. Dysphagia 3. Bilateral pleural effusions 4. Moderate protein Malnutrition 5. Hypokalemia PLAN: -Patient scheduled for PEG tube placement on 08/01/[address] Cole -Potassium being corrected -Continue supportive care -Place Mobic and Advil on hold for upcoming procedure Thank you for this consultation Physician Client Integration Manager note has been reviewed by physician. Signing provider agrees with the documented findings, assessment, and plan of care. Past Medical History Past Medical History: Asthma, Cancer, COPD, Diabetes Mellitus, GERD/Reflux, Hyperlipidemia, Hypertension, Osteoarthritis (OA), Sleep Apnea/CPAP/BIPAP Additional Past Medical History / Comment(s): uses CPAP, occ. 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) History of Any Multi-Drug Resistant Organisms: None Reported Past Surgical History: Hernia Repair, Joint Replacement, Orthopedic Surgery Additional Past Surgical History / Comment(s): cystoscopy, both knees replaced, multiple arthroscopies knees, colonoscopies, dental implant, right hip replaced, stent in esophabus 02/03/21, port rt side inserted 03/2021, esophageal stent placed and port inserted 04/26/21 Past Anesthesia/Blood Transfusion Reactions: Previous Problems w/ Anesthesia, Family History of Problems w/ Anesthesia, Motion Sickness Additional Past Anesthesia/Blood Transfusion Reaction / Comm: very combative when waking up from general anesthesia, anxious & agitated w/IV sedation,. mother ponv Past Psychological History: Anxiety Additional Psychological History / Comment(s): Pt resides with his spouse. He uses a cane to ambulate and has access to a walker and wheelchair if needed. Spouse drives and manages pt's medications. No home care at this time. Smoking Status: Never smoker Past Alcohol Use History: None Reported Past Drug Use History: None Reported - Past Family History Father Brother(s) Family Medical History: Cancer, Deep Vein Thrombosis (DVT) Additional Family Medical History / Comment(s): colon cancer Mother Family Medical History: Cancer Additional Family Medical History / Comment(s): . Father Family Medical History: Cancer Additional Family Medical History / Comment(s): Small intestine cancer with mets Brother(s) Family Medical History: Cancer Sister(s) Family Medical History: Cancer Medications and Allergies Home Medications Medication Instructions Recorded Confirmed Type ALPRAZolam [Xanax] 0.25 mg PO TID@0600,1200,1800 01/28/16 07/28/21 History Optive Eye Drops 1 drop BOTH EYES BID@0600,1800 01/28/16 07/28/21 History Fluticasone Propion/Salmeterol 1 puff INHALATION RT-BID@0600,1800 10/01/19 07/28/21 History [Advair 100-50 Diskus] Meloxicam [Mobic] 7.5 mg PO DAILY@1800 10/01/19 07/28/21 History glipiZIDE [Glucotrol] 5 mg PO BID@0600,1800 10/01/19 07/28/21 History Albuterol Sulfate [Ventolin HFA] 2 puff INHALATION RT-Q4H PRN 02/01/21 07/28/21 History Ezetimibe [Zetia] 10 mg PO HS@2200 02/01/21 07/28/21 History Fluticasone Nasal [place] [Flonase 1 spray EA NOSTRIL BID@0600,1800 02/01/21 07/28/21 History Nasal [place]] Omeprazole [PriLOSEC] 20 mg PO BID@0600,1800 02/01/21 07/28/21 History Simvastatin [Zocor] 20 mg PO HS@2200 03/01/21 07/28/21 History Dicyclomine [Bentyl] 10 mg PO DAILY@0800 04/25/21 07/28/21 History Ondansetron [Zofran ODT] 8 mg PO Q12HR PRN 04/25/21 07/28/21 History Sucralfate 1 gm PO Q6H 04/25/21 07/28/21 History guaiFENesin-Coden 100-10MG/5ML 10 ml PO Q6H 04/25/21 07/28/21 History [Robitussin AC] Ibuprofen 200 mg PO Q4H 05/06/21 07/28/21 History diphenhydrAMINE [Benadryl] 25 mg PO Q6H 05/06/21 07/28/21 History Folfax Regimen 1 dose IV Q14D 06/15/21 07/28/21 History HYDROcodone/APAP [Waterman Elixir 15 ml PO Q6H 06/15/21 07/28/21 History 7.5-325Mg/15Ml] INSULIN ASPART (NovoLOG) [NovoLOG See Protocol SQ ACHS 06/15/21 07/28/21 History (formulary)] Kools Solution 5 ml PO Q4H 06/15/21 07/28/21 History Lidocaine-Prilocaine Cream [Emla 1 applic TOPICAL DIRECTED 06/15/21 07/28/21 History Cream 2.5%/2.5%] Loratadine 10 mg PO DAILY@0600 06/15/21 07/28/21 History Mesalamine [Canasa] 1,000 mg RECTAL HS PRN 06/15/21 07/28/21 History Metoprolol Succinate (ER) [Toprol 50 mg PO BID@0600,1800 06/15/21 07/28/21 History XL] OLANZapine [ZyPREXA] 5 mg PO DAILY@199906/15/21 07/28/21 History Pembrolizumab [Keytruda] 200 mg IV Q21D 06/15/21 07/28/21 History fentaNYL 25MCG/HR PATCH [Duragesic 1 patch TRANSDERM Q3D@0800 06/15/21 07/28/21 History 25MCG/HR] Metoclopramide [Reglan] 10 mg PO BID 07/28/21 07/28/21 History Allergies Allergy/AdvReac Type Severity Reaction Status Date / Time cefazolin [From Kefzol] Allergy Rash/Hives Verified 07/28/21 07:41 Penicillins Allergy Rash/Hives Verified 07/28/21 07:41 Sulfa (Sulfonamide Allergy Rash/Hives Verified 07/28/21 07:41 Antibiotics) enalaprilat [From Vasotec] AdvReac Cough Verified 07/28/21 07:41 prochlorperazine AdvReac facial Verified 07/28/21 07:41 [From Compazine] twitching, loss of sensation of mouth Surgical - Exam Vital Signs Temp Pulse Resp BP Pulse Ox 97.9 F 118 H 22 129/78 95 07/27/21 17:22 07/27/21 17:22 07/27/21 17:22 07/27/21 17:22 07/27/21 17:22 Results - Labs 07/29/21 06:31 07/29/21 06:31 Abnormal Lab Results - Last 24 Hours (Table) 07/28/21 07/28/21 07/29/21 Range/Units 18:15 20:26 06:31 RBC 3.05 L (4.40-5.60) X 10*6/uL Hgb 8.0 L (13.0-17.0) g/dL Hct 26.7 L (39.6-50.0) % MCH 26.2 L (27.0-32.0) pg MCHC 30.0 L (32.0-37.0) g/dL RDW 17.5 H (11.5-14.5) % MPV 9.3 L (9.5-12.2) fL Lymphocytes # 0.48 L (0.90-5.00) X 10*3/uL Eosinophils # 0.03 L (0.04-0.35) X 10*3/uL Potassium (3.5-5.5) mmol/L Carbon Dioxide (20.0-27.5) mmol/L Anion Gap (10.00-18.00) mmol/L Creatinine (0.6-1.5) mg/dL Glucose (70-110) mg/dL POC Glucose (mg/dL) 124 H (70-110) mg/dL Calcium (8.7-10.3) mg/dL Alkaline Phosphatase (41-126) U/L Total Protein (6.2-8.2) g/dL Albumin (3.8-4.9) g/dL Albumin/Globulin Ratio (1.60-3.17) g/dL Urine Protein 1+ H (Negative) Urine Ketones 1+ H (Negative) Urine Blood Moderate H (Negative) Ur Leukocyte Esterase Moderate H (Negative) Urine RBC 50 H (0-5) /hpf Urine WBC 11 H (0-5) /hpf Urine Mucus Occasional H (None) /hpf 07/29/21 07/29/21 07/29/21 Range/Units 06:31 07:02 11:36 RBC (4.40-5.60) X 10*6/uL Hgb (13.0-17.0) g/dL Hct (39.6-50.0) % MCH (27.0-32.0) pg MCHC (32.0-37.0) g/dL RDW (11.5-14.5) % MPV (9.5-12.2) fL Lymphocytes # (0.90-5.00) X 10*3/uL Eosinophils # (0.04-0.35) X 10*3/uL Potassium 3.0 L (3.5-5.5) mmol/L Carbon Dioxide 28.1 H (20.0-27.5) mmol/L Anion Gap 9.90 L (10.00-18.00) mmol/L Creatinine 0.5 L (0.6-1.5) mg/dL Glucose 112 H (70-110) mg/dL POC Glucose (mg/dL) 117 H 123 H (70-110) mg/dL Calcium 7.7 L (8.7-10.3) mg/dL Alkaline Phosphatase 128 H (41-126) U/L Total Protein 4.5 L (6.2-8.2) g/dL Albumin 2.0 L (3.8-4.9) g/dL Albumin/Globulin Ratio 0.80 L (1.60-3.17) g/dL Urine Protein (Negative) Urine Ketones (Negative) Urine Blood (Negative) Ur Leukocyte Esterase (Negative) Urine RBC (0-5) /hpf Urine WBC (0-5) /hpf Urine Mucus (None) /hpf Microbiology - Last 24 Hours (Table) 07/28/21 18:15 Urine Culture - Preliminary Urine,Clean Catch 07/27/21 21:45 Blood Culture - Preliminary Blood No Growth after 24 hours 07/27/21 21:30 Blood Culture - Preliminary Blood No Growth after 24 hours Diabetes panel 07/29/21 Range/Units 06:31 Sodium 140 (135-145) mmol/L Potassium 3.0 L (3.5-5.5) mmol/L Chloride 102 (96-109) mmol/L Carbon Dioxide 28.1 H (20.0-27.5) mmol/L BUN 9.9 (9.0-27.0) mg/dL Creatinine 0.5 L (0.6-1.5) mg/dL Glucose 112 H (70-110) mg/dL Calcium 7.7 L (8.7-10.3) mg/dL AST 26 (14-35) U/L ALT 10 (10-49) U/L Alkaline Phosphatase 128 H (41-126) U/L Total Protein 4.5 L (6.2-8.2) g/dL Albumin 2.0 L (3.8-4.9) g/dL Calcium panel 07/29/21 Range/Units 06:31 Calcium 7.7 L (8.7-10.3) mg/dL Albumin 2.0 L (3.8-4.9) g/dL Pituitary panel 07/29/21 Range/Units 06:31 Sodium 140 (135-145) mmol/L Potassium 3.0 L (3.5-5.5) mmol/L Chloride 102 (96-109) mmol/L Carbon Dioxide 28.1 H (20.0-27.5) mmol/L BUN 9.9 (9.0-27.0) mg/dL Creatinine 0.5 L (0.6-1.5) mg/dL Glucose 112 H (70-110) mg/dL Calcium 7.7 L (8.7-10.3) mg/dL Adrenal panel 07/29/21 Range/Units 06:31 Sodium 140 (135-145) mmol/L Potassium 3.0 L (3.5-5.5) mmol/L Chloride 102 (96-109) mmol/L Carbon Dioxide 28.1 H (20.0-27.5) mmol/L BUN 9.9 (9.0-27.0) mg/dL Creatinine 0.5 L (0.6-1.5) mg/dL Glucose 112 H (70-110) mg/dL Calcium 7.7 L (8.7-10.3) mg/dL Total Bilirubin 0.40 (0.30-1.20) mg/dL AST 26 (14-35) U/L ALT 10 (10-49) U/L Alkaline Phosphatase 128 H (41-126) U/L Total Protein 4.5 L (6.2-8.2) g/dL Albumin 2.0 L (3.8-4.9) g/dL
[2021-07-29 15:32] LABS: Appearance,BF Grossly Bloody
[2021-07-29 17:29] LABS: Glucose, BF Source Pleural Fluid; Glucose, Body Fluid 82 mg/dL; LDH, Body Fluid Source Pleural Fluid; T. Protein, Body Fluid Source Pleural Fluid; Total Protein, Body Fluid 2680 mg/dL
[2021-07-29 17:37] LABS: Glucose,Whole Blood 122 mg/dL (70-110)
[2021-07-29 18:01] LABS: % Iron Saturation 12.32 (15.00-50.00)
[2021-07-29] MEDS: OLANZapine 5 MG TAB PO SCH (20:00)
[2021-07-29 20:22] LABS: Glucose,Whole Blood 156 mg/dL (70-110)
--- NOTE | 2021-07-29 20:54 | P.PN ---
Subjective Progress Note Date: 07/29/21 Principal diagnosis: Acute Hypoxic respiratory failure 1500cc thoracentesis today by Pulmonary, patient is breathing better, he has refused re-access of port at this time therefore refusing CTA. Which is proabbaly ok with clinical relief seen after thoracensis. Objective - Vital Signs Vital signs: Vital Signs Temp 97.6 F 07/29/21 04:34 Pulse 110 H 07/29/21 11:35 Resp 18 07/29/21 04:34 BP 146/80 07/29/21 04:34 Pulse Ox 98 07/29/21 07:11 FiO2 Intake & Output 07/28/21 07/29/21 07/29/21 18:59 06:59 18:59 Intake Total 240 Output Total 250 Balance -250 240 Weight 125.645 kg Intake: Intake, IV Titration 240 Amount Sodium Chloride 0.9% 1, 240 000 ml @ 20 mls/hr IV . Q24H STA Rx#:[id number] Output: Urine 250 Other: Voiding Method Toilet # Voids 1 - Exam - Constitutional General appearance: cooperative, mild distress - EENT Eyes: EOMI ENT: NA/AT - Neck Neck: normal ROM - Respiratory Respiratory: left: diminished - Cardiovascular Rhythm: regularly irregular - Gastrointestinal General gastrointestinal: soft - Integumentary Integumentary: pale - Neurologic Neurologic: CNII-XII intact - Musculoskeletal Musculoskeletal: generalized weakness - Psychiatric Psychiatric: A&O x's 3 - Labs CBC & Chem 7: 07/29/21 06:31 07/29/21 06:31 Labs: Abnormal Lab Results - Last 24 Hours (Table) 07/28/21 07/28/21 07/28/21 Range/Units 11:18 11:18 11:18 WBC 11.5 H (3.8-10.6) k/uL RBC 3.15 L (4.30-5.90) m/uL Hgb 8.9 L (13.0-17.5) gm/dL Hct 28.1 L (39.0-53.0) % MCH (27.0-32.0) pg MCHC (32.0-37.0) g/dL RDW 17.5 H (11.5-15.5) % MPV (9.5-12.2) fL Neutrophils # 10.5 H (1.3-7.7) k/uL Lymphocytes # 0.5 L (1.0-4.8) k/uL Eosinophils # (0.04-0.35) X 10*3/uL PT 13.0 H (9.0-12.0) sec INR 1.2 H (<1.2) Potassium 3.3 L (3.5-5.1) mmol/L Carbon Dioxide 31 H (22-30) mmol/L Anion Gap (10.00-18.00) mmol/L Creatinine 0.45 L (0.66-1.25) mg/dL Glucose 128 H (74-99) mg/dL POC Glucose (mg/dL) (70-110) mg/dL Calcium 7.3 L (8.4-10.2) mg/dL Alkaline Phosphatase 135 H (38-126) U/L Total Protein 4.7 L (6.3-8.2) g/dL Albumin 2.1 L (3.5-5.0) g/dL Albumin/Globulin Ratio (1.60-3.17) g/dL Urine Protein (Negative) Urine Ketones (Negative) Urine Blood (Negative) Ur Leukocyte Esterase (Negative) Urine RBC (0-5) /hpf Urine WBC (0-5) /hpf Urine Mucus (None) /hpf 07/28/21 07/28/21 07/29/21 Range/Units 18:15 20:26 06:31 WBC (3.8-10.6) k/uL RBC 3.05 L (4.30-5.90) m/uL Hgb 8.0 L (13.0-17.5) gm/dL Hct 26.7 L (39.0-53.0) % MCH 26.2 L (27.0-32.0) pg MCHC 30.0 L (32.0-37.0) g/dL RDW 17.5 H (11.5-15.5) % MPV 9.3 L (9.5-12.2) fL Neutrophils # (1.3-7.7) k/uL Lymphocytes # 0.48 L (1.0-4.8) k/uL Eosinophils # 0.03 L (0.04-0.35) X 10*3/uL PT (9.0-12.0) sec INR (<1.2) Potassium (3.5-5.1) mmol/L Carbon Dioxide (22-30) mmol/L Anion Gap (10.00-18.00) mmol/L Creatinine (0.66-1.25) mg/dL Glucose (74-99) mg/dL POC Glucose (mg/dL) 124 H (70-110) mg/dL Calcium (8.4-10.2) mg/dL Alkaline Phosphatase (38-126) U/L Total Protein (6.3-8.2) g/dL Albumin (3.5-5.0) g/dL Albumin/Globulin Ratio (1.60-3.17) g/dL Urine Protein 1+ H (Negative) Urine Ketones 1+ H (Negative) Urine Blood Moderate H (Negative) Ur Leukocyte Esterase Moderate H (Negative) Urine RBC 50 H (0-5) /hpf Urine WBC 11 H (0-5) /hpf Urine Mucus Occasional H (None) /hpf 07/29/21 07/29/21 Range/Units 06:31 07:02 WBC (3.8-10.6) k/uL RBC (4.30-5.90) m/uL Hgb (13.0-17.5) gm/dL Hct (39.0-53.0) % MCH (27.0-32.0) pg MCHC (32.0-37.0) g/dL RDW (11.5-15.5) % MPV (9.5-12.2) fL Neutrophils # (1.3-7.7) k/uL Lymphocytes # (1.0-4.8) k/uL Eosinophils # (0.04-0.35) X 10*3/uL PT (9.0-12.0) sec INR (<1.2) Potassium 3.0 L (3.5-5.1) mmol/L Carbon Dioxide 28.1 H (22-30) mmol/L Anion Gap 9.90 L (10.00-18.00) mmol/L Creatinine 0.5 L (0.66-1.25) mg/dL Glucose 112 H (74-99) mg/dL POC Glucose (mg/dL) 117 H (70-110) mg/dL Calcium 7.7 L (8.4-10.2) mg/dL Alkaline Phosphatase 128 H (38-126) U/L Total Protein 4.5 L (6.3-8.2) g/dL Albumin 2.0 L (3.5-5.0) g/dL Albumin/Globulin Ratio 0.80 L (1.60-3.17) g/dL Urine Protein (Negative) Urine Ketones (Negative) Urine Blood (Negative) Ur Leukocyte Esterase (Negative) Urine RBC (0-5) /hpf Urine WBC (0-5) /hpf Urine Mucus (None) /hpf Microbiology - Last 24 Hours (Table) 07/28/21 18:15 Urine Culture - Preliminary Urine,Clean Catch 07/27/21 21:45 Blood Culture - Preliminary Blood No Growth after 24 hours 07/27/21 21:30 Blood Culture - Preliminary Blood No Growth after 24 hours Assessment and Plan (1) Pleural effusion, left Narrative/Plan: Statatus post 1500 left sside Thoracentesis needed as patient is uncomfortable, await for pulmonary recs Current Visit: Yes Status: Acute Code(s): J90 - PLEURAL EFFUSION, NOT ELSEWHERE CLASSIFIED SNOMED Code(s): 59238676 (2) Esophageal cancer Current Visit: Yes Status: Acute Priority: High Code(s): C15.9 - MALIGNANT NEOPLASM OF ESOPHAGUS, UNSPECIFIED SNOMED Code(s): 823864735 (3) Acute respiratory failure with hypoxia Narrative/Plan: PLeural effusion possible underlying infection positive thick colored productive sputum. Pulmonary following defer to pulm Current Visit: No Status: Acute Code(s): J96.01 - ACUTE RESPIRATORY FAILURE WITH HYPOXIA SNOMED Code(s): 58486195 (4) Anemia Narrative/Plan: Maximize supplementation if area to replenish to assist in oxygenation Iron studies, B12 and FOlate ordered Current Visit: Yes Status: Acute Code(s): D64.9 - ANEMIA, UNSPECIFIED SNOMED Code(s): 333600794
[2021-07-29] MEDS: EZETIMIBE 10 MG TAB PO SCH (22:16)
[2021-07-29] MEDS: ATORVASTATIN 10 MG TAB PO SCH (22:16)
[2021-07-30] MEDS: FUROSEMIDE 10 MG/ML 2 ML VIAL IV SCH ×3 (00:10→15:15)
[2021-07-30] MEDS: MAG HYDROX/AL HYDROX/SIMETH 30 ML, diphenhydrAMINE ELIXIR 75 MG, LIDOCAINE VISCOUS 2% 3... PO SCH ×18 (00:11→22:04)
[2021-07-30] MEDS: SUCRALFATE 1 GM TAB PO SCH ×4 (00:11→17:56)
[2021-07-30] MEDS: diphenhydrAMINE 25 MG CAP PO SCH ×4 (03:57→21:10)
[2021-07-30] MEDS: HYDROcodone/APAP 15 ML SOLUTION PO SCH ×4 (03:57→21:09)
[2021-07-30] MEDS: guaiFENesin-Coden 100-10MG/5ML 10 ML CUP PO SCH ×4 (03:57→21:09)
[2021-07-30] MEDS: LORATADINE 10 MG TAB PO SCH (06:09)
[2021-07-30] MEDS: ALPRAZolam 0.25 MG TAB PO SCH ×3 (06:09→17:55)
[2021-07-30] MEDS: METOPROLOL SUCCINATE (ER) 50 MG TAB.ER.24H PO SCH ×2 (06:09→17:55)
[2021-07-30] MEDS: PANTOPRAZOLE 40 MG TABLET PO SCH ×2 (06:09→17:56)
[2021-07-30] MEDS: ARTIFICIAL TEARS-HYPROMELLOSE DROPS 15 ML BTL BOTH EYES SCH ×2 (06:09→17:56)
[2021-07-30] MEDS: FLUTICASONE 50MCG/SPRAY NASAL 16GM EA NOSTRIL SCH ×2 (06:10→17:57)
[2021-07-30] MEDS: glipiZIDE 5 MG TAB PO SCH ×2 (06:17→17:55)
[2021-07-30 07:07] LABS: Glucose,Whole Blood 116 mg/dL (70-110)
[2021-07-30] MEDS: IPRATROPIUM-ALBUTEROL 3 ML NEB INHALATION SCH ×4 (07:23→18:56)
[2021-07-30] MEDS: SYMBICORT 80-4.5 MCG INHALER INHALATION SCH ×2 (07:23→18:56)
[2021-07-30] MEDS: DICYCLOMINE 10 MG CAP PO SCH (07:56)
[2021-07-30] MEDS: ENOXAPARIN 40 MG/0.4 ML SYRINGE SQ SCH (07:56)
[2021-07-30] MEDS: METOCLOPRAMIDE 10 MG TAB PO SCH ×2 (07:57→21:09)
[2021-07-30] MEDS: LEVOFLOXACIN 500MG-D5W PMX 500 MG in DEXTROSE/WATER 1 100ML.BAG IVPB SCH (10:24)
--- NOTE | 2021-07-30 10:45 | P.PN ---
Progress Note - Text Progress Note Date: 07/30/21 Patient's resting comfortably in his bed. He is tentatively scheduled for PEG tube placement Sunday.
[2021-07-30 11:52] LABS: Glucose,Whole Blood 151 mg/dL (70-110)
--- NOTE | 2021-07-30 12:09 | P.PN ---
Subjective Progress Note Date: 07/30/21 Xiang Pimentel, 70-year-old male patient who presented to [facility] emergency room with a chief complaint of worsening shortness of breath patient has a known history of esophageal cancer, he has chronic right sided pleural effusion, he had a right-sided Pleurx catheter placement on 06/17/2021 and fluid was positive for metastatic adenocarcinoma. He was evaluated in the emergency room vital examination on presentation revealed a temperature of 97.9 pulse 118 respiration 22 blood pressure 129/78 pulse ox 95% on 3 L nasal cannula Laboratory data reveals a white blood count of 14.8 hemoglobin 8.6 platelet count 349 sodium 134 potassium 3.1 chloride 99 CO2 34 BUN 12 creatinine 0.47 Testing in the emergency room revealed chest x-ray done in the emergency room revealed evidence of congestive heart failure with pleural effusions, fluid increased on the left side compared to old exam Patient was admitted to medical floor for further evaluation and treatment cardiology and pulmonary consultation were requested Past medical history history of hypertension, hyperlipidemia, diabetes mellitus, obstructive sleep apnea utilizing CPAP osteoarthritis with multiple orthopedic surgeries, nonsmoker. The patient also has a history of esophageal cancer with previous stent placed in April 2021. 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 On 07/29/2021 patient's alert and oriented 3. Patient underwent arthrocentesis the same on the left side per Dr. Ling. Patient reports significant improvement with pain and breathing. Talks about possible feeding tube per patient and . At this time patient denies chest pain. Patient denies nausea vomiting or diarrhea. Patient denies any urinary burning or frequency. On 07/30/2021 patient was seen and examined on the medical floor, he is alert and oriented 3 in no apparent distress, he is complaining of shortness of breat h with any activity he is complaining of bilateral lower extremity swelling, pain is better controlled at this time, there is no fever or chills no headache or dizziness no chest pain no nausea or vomiting no abdominal pain no diarrhea and no urinary symptoms. Patient was seen by Dr. Cole this morning, he is scheduled for PICC tube feeding placement on Sunday, patient had multiple questions regarding the pros and cons of initiating tube feeding, this was discussed with him in details. Objective - Vital Signs Vital signs: Vital Signs Temp 98.0 F 06/25/22 05:38 Pulse 110 H 07/30/21 11:17 Resp 16 07/30/21 05:38 BP 126/85 07/30/21 05:38 Pulse Ox 96 07/30/21 07:26 FiO2 Intake & Output 07/29/21 07/30/21 07/30/21 18:59 06:59 18:59 Intake Total 2720 Balance 2720 Weight 125.645 kg Intake: Intake, IV Titration 740 Amount Levofloxacin 500Mg-D5w 100 Pmx 500 mg In Dextrose/ Water 1 100ml.bag @ 100 mls/hr IVPB Q24H [facility] Rx#: [id number] Potassium Chloride 10 meq 400 In Water For Injection 1 100ml.bag @ 100 mls/hr IVPB Q1HR [facility] Rx#: [id number] Sodium Chloride 0.9% 1, 240 000 ml @ 20 mls/hr IV . Q24H [facility] Rx#:[id number] Oral 1980 Other: Voiding Method Bedside Commode Bedside Commode Bedside Commode # Voids 3 # Bowel Movements 2 - Exam In general patient is alert and oriented x 3 in no distress HEENT head normocephalic and atraumatic Neck is supple no JVD no goiter no lymphadenopathy no carotid bruit Chest examination reveals a scattered bilateral crackles no wheezing Cardiac exam reveals regular heart sounds S1 and S2 no gallops no murmurs Abdomen is soft nontender no organomegaly with normal bowel sounds Extremity exam reveals no edema no cyanosis or clubbing Neurological examination reveals no gross focal deficits - Labs CBC & Chem 7: 07/29/21 06:31 07/29/21 06:31 Labs: Abnormal Lab Results - Last 24 Hours (Table) 07/29/21 07/29/21 07/29/21 Range/Units 06:31 11:36 17:36 POC Glucose (mg/dL) 123 H 122 H (70-110) mg/dL Iron 11 L (65-175) ug/dL TIBC 93 L (228-460) ug/dL % Saturation 12.32 L (15.00-50.00) Transferrin 66.1 L (204.0-354.0) mg/dL Ferritin 1531.0 H (22.0-322.0) ng/mL 07/29/21 07/30/21 Range/Units 20:20 07:06 POC Glucose (mg/dL) 156 H 116 H (70-110) mg/dL Iron (65-175) ug/dL TIBC (228-460) ug/dL % Saturation (15.00-50.00) Transferrin (204.0-354.0) mg/dL Ferritin (22.0-322.0) ng/mL Microbiology - Last 24 Hours (Table) 07/28/21 18:15 Urine Culture - Final Urine,Clean Catch 07/27/21 21:45 Blood Culture - Preliminary Blood No Growth after 48 hours 07/27/21 21:30 Blood Culture - Preliminary Blood No Growth after 48 hours 07/29/21 08:15 Gram Stain - Preliminary Pleural Fluid Body Fluid Culture - Preliminary 07/29/21 08:15 Acid Fast Bacilli Culture - Preliminary Pleural Fluid 07/29/21 08:15 Fungal Culture - Preliminary Pleural Fluid Assessment and Plan Plan: Esophageal cancer with metastatic disease Acute on chronic hypoxic respiratory failure, due to bilateral pleural effusio ns, patient also has congestion on chest x-ray, echocardiogram ordered and cardiology consultation requested to rule out congestive heart failure Recurrent right sided pleural effusion with recent Pleurx catheter placement one month ago Underlying history of hypertension Underlying history of diabetes mellitus type 2 Underlying history of hyperlipidemia Underlying history of obstructive sleep apnea maintained on CPAP Chronic pain related to esophageal cancer maintained on narcotics for pain management Underlying history of COPD At this time patient is admitted to medical floor Home medications reviewed and reordered Pulmonary and cardiology consultation was requested Status post thoracentesis on 07/29/2021 For DVT prophylaxis we will use Lovenox For GI prophylaxis continue Protonix Will follow closely
[2021-07-30 12:36] LABS: Basophils # (A) 0.02 X 10*3/uL (0.00-0.10); Basophils % (A) 0.4 %; Eosinophils # (A) 0.03 X 10*3/uL (0.04-0.35); Eosinophils % (A) 0.7 %; HGB 7.2 g/dL (13.0-17.0); Immature Grans, Automated 0.4 %; Lymphocytes # (A) 0.47 X 10*3/uL (0.90-5.00); Lymphocytes % (A) 10.5 %; MCH 26.4 pg (27.0-32.0); MCV 87.9 fL (80.0-97.0); Mean Platelet Volume 9.7 fL (9.5-12.2); Monocytes # (A) 0.49 X 10*3/uL (0.20-1.00); NRBC Per 100 WBC 0 /100 WBCS (0.0-0.0); Neutrophils # (A) 3.43 X 10*3/uL (1.80-7.70); Platelet Count 227 X 10*3/uL (140-440); RBC 2.73 X 10*6/uL (4.40-5.60); RDW 17.5 % (11.5-14.5); WBC 4.46 X 10*3/uL (4.50-10.00)
--- NOTE | 2021-07-30 12:45 | P.PN ---
Subjective Progress Note Date: 07/30/21 Principal diagnosis: Left pleural effusion, shortness of breath This is a very pleasant 70-year-old male patient with a history of hypertension, hyperlipidemia, diabetes mellitus, obstructive sleep apnea utilizing CPAP osteoarthritis with multiple orthopedic surgeries, nonsmoker. The patient also has a history of esophageal cancer with previous stent placed in April 2021. Th is is adenocarcinoma of the esophagus that has since metastasizes the patient had recurrent bilateral pleural effusions and previous thoracentesis. Most recently he had a right-sided Pleurx catheter placement on 06/17/2021 and fluid was positive for metastatic adenocarcinoma. He is currently on Keytruda. He had been having decreased amounts of pleural fluid that he had been draining at home. Less than 25-50 mL now. He presented here to the emergency room yesterday with complaints of increasing shortness of breath and is now found to have a large left-sided pleural effusion. Ultrasound of the left chest reveals a 12.5 cm pocket. I count 14.8. Hemoglobin 8.6. Platelets 349. INR 1.2. Sodium 134. Potassium 3.1. BUN 12. Creatinine 0.47. AST 20. ALT 10. Blood glucose 153. He is seen today in consultation in the emergency department. He's currently resting fairly comfortable on the stretcher. Awake and alert in no acute distress. He is maintaining O2 saturations in the 90s on 2 L/m per nasal cannula. He has 0.9% normal saline at 130 ML's per hour. He is dyspneic with exertion. He also states he is quite fatigued and weak today. The patient was seen in follow-up on 07/29/2021. He is currently sitting up at the bedside. Awake and alert in no acute distress. He is maintaining O2 saturations in the mid 90s on 4 L/m per nasal cannula. He's been afebrile. Hemodynamically stable. Chest x-ray had revealed bilateral pleural effusions left greater than right. He has a right-sided Pleurx catheter in place. He did undergo a left-sided thoracentesis today with 1.5 L of bloody fluid returned. Fluid analysis and cytology are pending. Follow-up chest x-ray revealed no evidence of pneumothorax. Blood culture reveals no growth. Urine culture pending. White count 7.5. Hemoglobin 8.0. Platelet count 265,000. Sodium 140. Potassium 3.0. BUN 10. Creatinine 0.5. Glucose 112. He remains on Symbicort, DuoNeb inhalations, antibiotics in the form of Levaquin. Lovenox for DVT prophylaxis. The patient is seen today 07/30/2021 in follow-up on the regular medical floor. He sitting up in bed. Awake and alert in no acute distress. Maintaining good O2 saturations in the 90s on room air. Slightly tachycardic. Afebrile. He did undergo a left-sided thoracentesis yesterday. Cytology pending. Fluid analysis was exudate with a total protein of 2.6 and LDH of 628. Grossly bloody. Cultures pending. Urine culture revealed no growth. Blood cultures reveal no growth. White count 4.4. Hemoglobin 7.2. Platelets 227. Glucose 151. He remains on DuoNeb inhalations, Symbicort, IV diuretics. He is on antibiotics in the form of Levaquin. Objective - Vital Signs Vital signs: Vital Signs Temp 98.3 F 07/30/21 12:20 Pulse 105 H 07/30/21 12:20 Resp 16 07/30/21 05:38 BP 90/57 07/30/21 12:20 Pulse Ox 98 07/30/21 12:20 FiO2 Intake & Output 07/29/21 07/30/21 07/30/21 18:59 06:59 18:59 Intake Total 2720 Balance 2720 Weight 125.645 kg Intake: Intake, IV Titration 740 Amount Levofloxacin 500Mg-D5w 100 Pmx 500 mg In Dextrose/ Water 1 100ml.bag @ 100 mls/hr IVPB Q24H [facility] Rx#: [id number] Potassium Chloride 10 meq 400 In Water For Injection 1 100ml.bag @ 100 mls/hr IVPB Q1HR [facility] Rx#: [id number] Sodium Chloride 0.9% 1, 240 000 ml @ 20 mls/hr IV . Q24H [facility] Rx#:[id number] Oral 1980 Other: Voiding Method Bedside Commode Bedside Commode Bedside Commode # Voids 3 # Bowel Movements 2 - Exam GENERAL EXAM: Alert, pleasant 70-year-old male, on 4 L nasal cannula, fairly comfortable in no apparent distress. HEAD: Normocephalic. EYES: Normal reaction of pupils, equal size. NOSE: Clear with pink turbinates. THROAT: No erythema or exudates. NECK: No masses, no JVD. CHEST: No chest wall deformity. Right-sided Mediport in place. Right-sided Pleurx catheter in place. LUNGS: Equal air entry with bibasilar crackles. Diminished in the left lung base. CVS: S1 and S2 normal with no audible murmur, regular rhythm. ABDOMEN: No hepatosplenomegaly, normal bowel sounds, no guarding or rigidity. SPINE: No scoliosis or deformity SKIN: No rashes CENTRAL NERVOUS SYSTEM: No focal deficits, tone is normal in all 4 extremities. EXTREMITIES: There is no peripheral edema. No clubbing, no cyanosis. Peripheral pulses are intact. - Labs CBC & Chem 7: 07/30/21 06:01 07/29/21 06:31 Labs: Abnormal Lab Results - Last 24 Hours (Table) 07/29/21 07/29/21 07/29/21 Range/Units 06:31 17:36 20:20 WBC (4.50-10.00) X 10*3/uL RBC (4.40-5.60) X 10*6/uL Hgb (13.0-17.0) g/dL Hct (39.6-50.0) % MCH (27.0-32.0) pg MCHC (32.0-37.0) g/dL RDW (11.5-14.5) % Lymphocytes # (0.90-5.00) X 10*3/uL Eosinophils # (0.04-0.35) X 10*3/uL POC Glucose (mg/dL) 122 H 156 H (70-110) mg/dL Iron 11 L (65-175) ug/dL TIBC 93 L (228-460) ug/dL % Saturation 12.32 L (15.00-50.00) Transferrin 66.1 L (204.0-354.0) mg/dL Ferritin 1531.0 H (22.0-322.0) ng/mL 07/30/21 07/30/21 07/30/21 Range/Units 06:01 07:06 11:51 WBC 4.46 L (4.50-10.00) X 10*3/uL RBC 2.73 L (4.40-5.60) X 10*6/uL Hgb 7.2 L (13.0-17.0) g/dL Hct 24.0 L (39.6-50.0) % MCH 26.4 L (27.0-32.0) pg MCHC 30.0 L (32.0-37.0) g/dL RDW 17.5 H (11.5-14.5) % Lymphocytes # 0.47 L (0.90-5.00) X 10*3/uL Eosinophils # 0.03 L (0.04-0.35) X 10*3/uL POC Glucose (mg/dL) 116 H 151 H (70-110) mg/dL Iron (65-175) ug/dL TIBC (228-460) ug/dL % Saturation (15.00-50.00) Transferrin (204.0-354.0) mg/dL Ferritin (22.0-322.0) ng/mL Microbiology - Last 24 Hours (Table) 07/28/21 18:15 Urine Culture - Final Urine,Clean Catch 07/27/21 21:45 Blood Culture - Preliminary Blood No Growth after 48 hours 07/27/21 21:30 Blood Culture - Preliminary Blood No Growth after 48 hours 07/29/21 08:15 Gram Stain - Preliminary Pleural Fluid Body Fluid Culture - Preliminary 07/29/21 08:15 Acid Fast Bacilli Culture - Preliminary Pleural Fluid 07/29/21 08:15 Fungal Culture - Preliminary Pleural Fluid Assessment and Plan Assessment: 1 Acute on chronic hypoxic respiratory failure secondary to a moderate size left pleural effusion secondary to metastatic adenocarcinoma of the esophagus. Status post left-sided thoracentesis with 1.5 L of bloody fluid returned on 07/29/2021. Fluid analysis feels an exudate with a protein of 0.6 and LDH 628. Cytology pending. 2 Metastatic adenocarcinoma of the esophagus 3 Recurrent right-sided pleural effusion, status post Pleurx catheter placement on 06/17/2021 4 Chronic dysphagia 5 History of COPD 6 Diabetes mellitus, type II 7 Hypertension 8 Hyperlipidemia 9 Osteoarthritis 10 Obstructive sleep apnea on CPAP 11 History of anxiety Plan: The patient was seen and evaluated Medications and labs reviewed Left-sided thoracentesis performed yesterday with 1.5 L of bloody fluid returned May need a Pleurx catheter placed on the left as well Titrate the FiO2 as tolerated The patient could be discharged home Follow up in the office in 1-2 weeks' I have personally seen and examined the patient, performed the documentation and the assessment and plan as written. Number of minutes spent on the visit: 10.
[2021-07-30 13:06] LABS: African American GFR (CKD) 118.9 (60.0-200.0); Albumin/Globulin Ratio 0.83 (1.60-3.17); Anion Gap 8.9 mmol/L (10.00-18.00); BUN/Creat Ratio 15.67 Ratio (12.00-20.00); Blood Urea Nitrogen 9.4 mg/dL (9.0-27.0); Calcium 7.6 mg/dL (8.7-10.3); Carbon Dioxide 29.1 mmol/L (20.0-27.5); Globulin 2.4 g/dL (1.6-3.3); Non-African American GFR(CKD) 102.6 (60.0-200.0); Potassium 2.9 mmol/L (3.5-5.5); Total Bilirubin 0.3 mg/dL (0.30-1.20); Total Protein 4.4 g/dL (6.2-8.2)
[2021-07-30 17:31] LABS: Glucose,Whole Blood 156 mg/dL (70-110)
[2021-07-30 20:44] LABS: Glucose,Whole Blood 173 mg/dL (70-110)
[2021-07-30] MEDS: EZETIMIBE 10 MG TAB PO SCH (21:09)
[2021-07-30] MEDS: ATORVASTATIN 10 MG TAB PO SCH (21:09)
[2021-07-30] MEDS: OLANZapine 5 MG TAB PO SCH (21:09)
[2021-07-30] MEDS: HYDROmorphone 1 MG/ML 1 ML SYRINGE IVP PRN (22:10)
[2021-07-31] MEDS: MAG HYDROX/AL HYDROX/SIMETH 30 ML, diphenhydrAMINE ELIXIR 75 MG, LIDOCAINE VISCOUS 2% 3... PO SCH ×21 (00:59→23:45)
[2021-07-31] MEDS: FUROSEMIDE 10 MG/ML 2 ML VIAL IV SCH ×4 (00:59→23:49)
[2021-07-31] MEDS: SUCRALFATE 1 GM TAB PO SCH ×5 (00:59→23:45)
[2021-07-31] MEDS: diphenhydrAMINE 25 MG CAP PO SCH ×4 (04:00→21:24)
[2021-07-31] MEDS: HYDROcodone/APAP 15 ML SOLUTION PO SCH ×4 (04:00→21:24)
[2021-07-31] MEDS: guaiFENesin-Coden 100-10MG/5ML 10 ML CUP PO SCH ×4 (04:00→21:24)
[2021-07-31] MEDS: HYDROmorphone 1 MG/ML 1 ML SYRINGE IVP PRN ×4 (04:01→22:30)
[2021-07-31] MEDS: ALPRAZolam 0.25 MG TAB PO SCH ×3 (05:18→17:37)
[2021-07-31] MEDS: ARTIFICIAL TEARS-HYPROMELLOSE DROPS 15 ML BTL BOTH EYES SCH ×2 (06:12→17:38)
[2021-07-31] MEDS: METOPROLOL SUCCINATE (ER) 50 MG TAB.ER.24H PO SCH ×2 (06:12→17:37)
[2021-07-31] MEDS: PANTOPRAZOLE 40 MG TABLET PO SCH ×2 (06:12→17:37)
[2021-07-31] MEDS: LORATADINE 10 MG TAB PO SCH (06:12)
[2021-07-31] MEDS: SYMBICORT 80-4.5 MCG INHALER INHALATION SCH ×2 (06:13→19:46)
[2021-07-31] MEDS: FLUTICASONE 50MCG/SPRAY NASAL 16GM EA NOSTRIL SCH ×2 (06:13→17:38)
[2021-07-31] MEDS: glipiZIDE 5 MG TAB PO SCH ×2 (06:23→17:41)
[2021-07-31] MEDS: IPRATROPIUM-ALBUTEROL 3 ML NEB INHALATION SCH ×4 (07:06→19:46)
[2021-07-31 07:12] LABS: Glucose,Whole Blood 121 mg/dL (70-110)
[2021-07-31] MEDS: ENOXAPARIN 40 MG/0.4 ML SYRINGE SQ SCH (08:49)
[2021-07-31] MEDS: DICYCLOMINE 10 MG CAP PO SCH (08:50)
[2021-07-31] MEDS: METOCLOPRAMIDE 10 MG TAB PO SCH ×2 (09:05→21:24)
--- NOTE | 2021-07-31 09:29 | P.PN ---
Progress Note - Text Progress Note Date: 07/31/21 Patient remains stable. He is currently scheduled for PEG tube placement tomorrow.
--- NOTE | 2021-07-31 10:01 | P.PN ---
Subjective Progress Note Date: 07/31/21 Xiang Pimentel, 70-year-old male patient who presented to [facility] emergency room with a chief complaint of worsening shortness of breath patient has a known history of esophageal cancer, he has chronic right sided pleural effusion, he had a right-sided Pleurx catheter placement on 06/17/2021 and fluid was positive for metastatic adenocarcinoma. He was evaluated in the emergency room vital examination on presentation revealed a temperature of 97.9 pulse 118 respiration 22 blood pressure 129/78 pulse ox 95% on 3 L nasal cannula Laboratory data reveals a white blood count of 14.8 hemoglobin 8.6 platelet count 349 sodium 134 potassium 3.1 chloride 99 CO2 34 BUN 12 creatinine 0.47 Testing in the emergency room revealed chest x-ray done in the emergency room revealed evidence of congestive heart failure with pleural effusions, fluid increased on the left side compared to old exam Patient was admitted to medical floor for further evaluation and treatment cardiology and pulmonary consultation were requested Past medical history history of hypertension, hyperlipidemia, diabetes mellitus, obstructive sleep apnea utilizing CPAP osteoarthritis with multiple orthopedic surgeries, nonsmoker. The patient also has a history of esophageal cancer with previous stent placed in April 2021. 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 On 07/29/2021 patient's alert and oriented 3. Patient underwent arthrocentesis the same on the left side per Dr. Ling. Patient reports significant improvement with pain and breathing. Talks about possible feeding tube per patient and . At this time patient denies chest pain. Patient denies nausea vomiting or diarrhea. Patient denies any urinary burning or frequency. On 07/30/2021 patient was seen and examined on the medical floor, he is alert and oriented 3 in no apparent distress, he is complaining of shortness of breat h with any activity he is complaining of bilateral lower extremity swelling, pain is better controlled at this time, there is no fever or chills no headache or dizziness no chest pain no nausea or vomiting no abdominal pain no diarrhea and no urinary symptoms. Patient was seen by Dr. Cole this morning, he is scheduled for PICC tube feeding placement on Sunday, patient had multiple questions regarding the pros and cons of initiating tube feeding, this was discussed with him in details. On 07/31/2021 patient's alert and oriented 3. Patient having some increased shortness of breath chest x-ray has been ordered per pulmonary to assess if patient needs fluid draining from lungs. Patient is tentatively scheduled for PEG tube placement tomorrow per surgical services. At this time patient denies chest pain. Patient denies nausea vomiting or diarrhea. Patient denies any urinary burning or frequency Objective - Vital Signs Vital signs: Vital Signs Temp 98.2 F 07/31/21 04:18 Pulse 110 H 07/31/21 07:22 Resp 18 07/31/21 04:18 BP 137/75 07/31/21 04:18 Pulse Ox 94 L 07/31/21 07:10 FiO2 Intake & Output 07/30/21 07/31/21 07/31/21 18:59 06:59 18:59 Other: Voiding Method Bedside Commode Bedside Commode # Voids 4 1 - Exam In general patient is alert and oriented x 3 in no distress HEENT head normocephalic and atraumatic Neck is supple no JVD no goiter no lymphadenopathy no carotid bruit Chest examination reveals a scattered bilateral crackles no wheezing Cardiac exam reveals regular heart sounds S1 and S2 no gallops no murmurs Abdomen is soft nontender no organomegaly with normal bowel sounds Extremity exam reveals no edema no cyanosis or clubbing Neurological examination reveals no gross focal deficits - Labs CBC & Chem 7: 07/30/21 06:01 07/30/21 06:01 Labs: Abnormal Lab Results - Last 24 Hours (Table) 07/30/21 07/30/21 07/30/21 Range/Units 06:01 06:01 11:51 WBC 4.46 L (4.50-10.00) X 10*3/uL RBC 2.73 L (4.40-5.60) X 10*6/uL Hgb 7.2 L (13.0-17.0) g/dL Hct 24.0 L (39.6-50.0) % MCH 26.4 L (27.0-32.0) pg MCHC 30.0 L (32.0-37.0) g/dL RDW 17.5 H (11.5-14.5) % Lymphocytes # 0.47 L (0.90-5.00) X 10*3/uL Eosinophils # 0.03 L (0.04-0.35) X 10*3/uL Potassium 2.9 L (3.5-5.5) mmol/L Carbon Dioxide 29.1 H (20.0-27.5) mmol/L Anion Gap 8.90 L (10.00-18.00) mmol/L Glucose 121 H (70-110) mg/dL POC Glucose (mg/dL) 151 H (70-110) mg/dL Calcium 7.6 L (8.7-10.3) mg/dL Alkaline Phosphatase 128 H (41-126) U/L Total Protein 4.4 L (6.2-8.2) g/dL Albumin 2.0 L (3.8-4.9) g/dL Albumin/Globulin Ratio 0.83 L (1.60-3.17) g/dL 07/30/21 07/30/21 07/31/21 Range/Units 17:30 20:42 07:10 WBC (4.50-10.00) X 10*3/uL RBC (4.40-5.60) X 10*6/uL Hgb (13.0-17.0) g/dL Hct (39.6-50.0) % MCH (27.0-32.0) pg MCHC (32.0-37.0) g/dL RDW (11.5-14.5) % Lymphocytes # (0.90-5.00) X 10*3/uL Eosinophils # (0.04-0.35) X 10*3/uL Potassium (3.5-5.5) mmol/L Carbon Dioxide (20.0-27.5) mmol/L Anion Gap (10.00-18.00) mmol/L Glucose (70-110) mg/dL POC Glucose (mg/dL) 156 H 173 H 121 H (70-110) mg/dL Calcium (8.7-10.3) mg/dL Alkaline Phosphatase (41-126) U/L Total Protein (6.2-8.2) g/dL Albumin (3.8-4.9) g/dL Albumin/Globulin Ratio (1.60-3.17) g/dL Microbiology - Last 24 Hours (Table) 07/27/21 21:45 Blood Culture - Preliminary Blood No Growth after 72 hours 07/27/21 21:30 Blood Culture - Preliminary Blood No Growth after 72 hours 07/29/21 08:15 Acid Fast Bacilli Smear - Final Pleural Fluid Acid Fast Bacilli Culture - Preliminary 07/29/21 08:15 Gram Stain - Preliminary Pleural Fluid Body Fluid Culture - Preliminary 07/28/21 18:15 Urine Culture - Final Urine,Clean Catch Assessment and Plan Plan: Esophageal cancer with metastatic disease Acute on chronic hypoxic respiratory failure, due to bilateral pleural effusions, patient also has congestion on chest x-ray, echocardiogram ordered and cardiology consultation requested to rule out congestive heart failure Recurrent right sided pleural effusion with recent Pleurx catheter placement one month ago Underlying history of hypertension Underlying history of diabetes mellitus type 2 Underlying history of hyperlipidemia Underlying history of obstructive sleep apnea maintained on CPAP Chronic pain related to esophageal cancer maintained on narcotics for pain management Underlying history of COPD At this time patient is admitted to medical floor Home medications reviewed and reordered Pulmonary and cardiology consultation was requested Status post thoracentesis on 07/29/2021 Tentative plans for PEG tube placement 08/01/2021 For DVT prophylaxis we will use Lovenox For GI prophylaxis continue Protonix Will follow closely
[2021-07-31 10:59] LABS: Basophils # (A) 0.02 X 10*3/uL (0.00-0.10); Basophils % (A) 0.5 %; Eosinophils # (A) 0.03 X 10*3/uL (0.04-0.35); Eosinophils % (A) 0.7 %; HCT 25.2 % (39.6-50.0); HGB 7.6 g/dL (13.0-17.0); Immature Grans, Automated 0.2 %; Lymphocytes # (A) 0.56 X 10*3/uL (0.90-5.00); Lymphocytes % (A) 13.3 %; MCH 26.6 pg (27.0-32.0); MCHC 30.2 g/dL (32.0-37.0); MCV 88.1 fL (80.0-97.0); Mean Platelet Volume 9.3 fL (9.5-12.2); Monocytes # (A) 0.45 X 10*3/uL (0.20-1.00); Monocytes % (A) 10.7 %; NRBC Per 100 WBC 0 /100 WBCS (0.0-0.0); Neutrophils # (A) 3.13 X 10*3/uL (1.80-7.70); Neutrophils % (A) 74.6 %; Platelet Count 230 X 10*3/uL (140-440); RBC 2.86 X 10*6/uL (4.40-5.60); RDW 17.5 % (11.5-14.5)
--- NOTE | 2021-07-31 11:05 | XR ---
EXAMINATION TYPE: XR chest 1V portable DATE OF EXAM: 07/31/2021 HISTORY: Shortness of breath. COMPARISON: 07/29/2021 TECHNIQUE: Single view of the chest is submitted. FINDINGS: Pulmonary venous congestion with bilateral effusions and scattered infiltrates suggest congestive rina lure. Infiltrates of other etiology not excluded. The overall appearance has progressed slightly in t he interval. The heart is stable. Hilar and mediastinal structures are within normal limits. Degenerative changes are seen of the dorsal spine. IMPRESSION: 1. Findings may reflect congestive failure with mild interval progression. Infiltrates of other etio logy not excluded. Correlate clinically.
[2021-07-31 11:16] LABS: African American GFR (CKD) 118.9 (60.0-200.0); Albumin 2.2 g/dL (3.8-4.9); Albumin/Globulin Ratio 0.84 (1.60-3.17); Anion Gap 10.1 mmol/L (10.00-18.00); BUN/Creat Ratio 14.28 Ratio (12.00-20.00); Blood Urea Nitrogen 8.6 mg/dL (9.0-27.0); Calcium 7.8 mg/dL (8.7-10.3); Carbon Dioxide 31.7 mmol/L (20.0-27.5); Globulin 2.6 g/dL (1.6-3.3); Non-African American GFR(CKD) 102.6 (60.0-200.0); Potassium 3.1 mmol/L (3.5-5.5); Total Bilirubin 0.3 mg/dL (0.30-1.20); Total Protein 4.7 g/dL (6.2-8.2)
--- NOTE | 2021-07-31 11:24 | P.PN ---
Subjective Progress Note Date: 07/31/21 Principal diagnosis: Left pleural effusion, shortness of breath This is a very pleasant 70-year-old male patient with a history of hypertension, hyperlipidemia, diabetes mellitus, obstructive sleep apnea utilizing CPAP osteoarthritis with multiple orthopedic surgeries, nonsmoker. The patient also has a history of esophageal cancer with previous stent placed in April 2021. Th is is adenocarcinoma of the esophagus that has since metastasizes the patient had recurrent bilateral pleural effusions and previous thoracentesis. Most recently he had a right-sided Pleurx catheter placement on 06/17/2021 and fluid was positive for metastatic adenocarcinoma. He is currently on Keytruda. He had been having decreased amounts of pleural fluid that he had been draining at home. Less than 25-50 mL now. He presented here to the emergency room yesterday with complaints of increasing shortness of breath and is now found to have a large left-sided pleural effusion. Ultrasound of the left chest reveals a 12.5 cm pocket. I count 14.8. Hemoglobin 8.6. Platelets 349. INR 1.2. Sodium 134. Potassium 3.1. BUN 12. Creatinine 0.47. AST 20. ALT 10. Blood glucose 153. He is seen today in consultation in the emergency department. He's currently resting fairly comfortable on the stretcher. Awake and alert in no acute distress. He is maintaining O2 saturations in the 90s on 2 L/m per nasal cannula. He has 0.9% normal saline at 130 ML's per hour. He is dyspneic with exertion. He also states he is quite fatigued and weak today. The patient was seen in follow-up on 07/29/2021. He is currently sitting up at the bedside. Awake and alert in no acute distress. He is maintaining O2 saturations in the mid 90s on 4 L/m per nasal cannula. He's been afebrile. Hemodynamically stable. Chest x-ray had revealed bilateral pleural effusions left greater than right. He has a right-sided Pleurx catheter in place. He did undergo a left-sided thoracentesis today with 1.5 L of bloody fluid returned. Fluid analysis and cytology are pending. Follow-up chest x-ray revealed no evidence of pneumothorax. Blood culture reveals no growth. Urine culture pending. White count 7.5. Hemoglobin 8.0. Platelet count 265,000. Sodium 140. Potassium 3.0. BUN 10. Creatinine 0.5. Glucose 112. He remains on Symbicort, DuoNeb inhalations, antibiotics in the form of Levaquin. Lovenox for DVT prophylaxis. The patient is seen today 07/30/2021 in follow-up on the regular medical floor. He sitting up in bed. Awake and alert in no acute distress. Maintaining good O2 saturations in the 90s on room air. Slightly tachycardic. Afebrile. He did undergo a left-sided thoracentesis yesterday. Cytology pending. Fluid analysis was exudate with a total protein of 2.6 and LDH of 628. Grossly bloody. Cultures pending. Urine culture revealed no growth. Blood cultures reveal no growth. White count 4.4. Hemoglobin 7.2. Platelets 227. Glucose 151. He remains on DuoNeb inhalations, Symbicort, IV diuretics. He is on antibiotics in the form of Levaquin. The patient is seen today 07/31/2021 follow-up on the regular medical floor. He is awake and alert in no acute distress. He is resting in bed. He has ongoing loose cough, shortness of breath with exertion. Maintaining O2 saturations in the 90s on 4 L/m per nasal cannula. He is afebrile. Hemodynamically stable. Chest x-ray continues to show bilateral effusions left greater than right. Right-sided Pleurx catheter in place and drained today with only a small amount of fluid removed. Pleural fluid cultures pending and recent left-sided thoracentesis. White count 4.2. Hemoglobin 7.6. Platelets 2:30. Sodium 142. Potassium 3.1. BUN 9. Creatinine 0.6. Glucose 121. He is continued on IV Las ix 20 mg every 8 hours, DuoNeb inhalations, Symbicort, antibiotics in the form of Levaquin. Lovenox for DVT prophylaxis. Objective - Vital Signs Vital signs: Vital Signs Temp 98.2 F 07/31/21 04:18 Pulse 100 07/31/21 11:10 Resp 18 07/31/21 04:18 BP 137/75 07/31/21 04:18 Pulse Ox 94 L 07/31/21 07:10 FiO2 Intake & Output 06/25/22 06/26/22 06/26/22 18:59 06:59 18:59 Other: Voiding Method Bedside Commode Bedside Commode Bedside Commode # Voids 4 1 - Exam GENERAL EXAM: Alert, 70-year-old gentleman, on 4 L nasal cannula, fairly comfortable in no apparent distress. HEAD: Normocephalic. EYES: Normal reaction of pupils, equal size. NOSE: Clear with pink turbinates. THROAT: No erythema or exudates. NECK: No masses, no JVD. CHEST: No chest wall deformity. Right-sided Mediport in place. Right-sided Pleurx catheter in place. LUNGS: Equal air entry with bibasilar crackles. Diminished in the left lung base. CVS: S1 and S2 normal with no audible murmur, regular rhythm. ABDOMEN: No hepatosplenomegaly, normal bowel sounds, no guarding or rigidity. SPINE: No scoliosis or deformity SKIN: No rashes CENTRAL NERVOUS SYSTEM: No focal deficits, tone is normal in all 4 extremities. EXTREMITIES: There is no peripheral edema. No clubbing, no cyanosis. Peripheral pulses are intact. - Labs CBC & Chem 7: 07/31/21 06:31 07/30/21 06:01 Labs: Abnormal Lab Results - Last 24 Hours (Table) 07/30/21 07/30/21 07/30/21 Range/Units 06:01 06:01 11:51 WBC 4.46 L (4.50-10.00) X 10*3/uL RBC 2.73 L (4.40-5.60) X 10*6/uL Hgb 7.2 L (13.0-17.0) g/dL Hct 24.0 L (39.6-50.0) % MCH 26.4 L (27.0-32.0) pg MCHC 30.0 L (32.0-37.0) g/dL RDW 17.5 H (11.5-14.5) % MPV (9.5-12.2) fL Lymphocytes # 0.47 L (0.90-5.00) X 10*3/uL Eosinophils # 0.03 L (0.04-0.35) X 10*3/uL Potassium 2.9 L (3.5-5.5) mmol/L Carbon Dioxide 29.1 H (20.0-27.5) mmol/L Anion Gap 8.90 L (10.00-18.00) mmol/L Glucose 121 H (70-110) mg/dL POC Glucose (mg/dL) 151 H (70-110) mg/dL Calcium 7.6 L (8.7-10.3) mg/dL Alkaline Phosphatase 128 H (41-126) U/L Total Protein 4.4 L (6.2-8.2) g/dL Albumin 2.0 L (3.8-4.9) g/dL Albumin/Globulin Ratio 0.83 L (1.60-3.17) g/dL 07/30/21 07/30/21 07/31/21 Range/Units 17:30 20:42 06:31 WBC 4.20 L (4.50-10.00) X 10*3/uL RBC 2.86 L (4.40-5.60) X 10*6/uL Hgb 7.6 L (13.0-17.0) g/dL Hct 25.2 L (39.6-50.0) % MCH 26.6 L (27.0-32.0) pg MCHC 30.2 L (32.0-37.0) g/dL RDW 17.5 H (11.5-14.5) % MPV 9.3 L (9.5-12.2) fL Lymphocytes # 0.56 L (0.90-5.00) X 10*3/uL Eosinophils # 0.03 L (0.04-0.35) X 10*3/uL Potassium (3.5-5.5) mmol/L Carbon Dioxide (20.0-27.5) mmol/L Anion Gap (10.00-18.00) mmol/L Glucose (70-110) mg/dL POC Glucose (mg/dL) 156 H 173 H (70-110) mg/dL Calcium (8.7-10.3) mg/dL Alkaline Phosphatase (41-126) U/L Total Protein (6.2-8.2) g/dL Albumin (3.8-4.9) g/dL Albumin/Globulin Ratio (1.60-3.17) g/dL 07/31/21 Range/Units 07:10 WBC (4.50-10.00) X 10*3/uL RBC (4.40-5.60) X 10*6/uL Hgb (13.0-17.0) g/dL Hct (39.6-50.0) % MCH (27.0-32.0) pg MCHC (32.0-37.0) g/dL RDW (11.5-14.5) % MPV (9.5-12.2) fL Lymphocytes # (0.90-5.00) X 10*3/uL Eosinophils # (0.04-0.35) X 10*3/uL Potassium (3.5-5.5) mmol/L Carbon Dioxide (20.0-27.5) mmol/L Anion Gap (10.00-18.00) mmol/L Glucose (70-110) mg/dL POC Glucose (mg/dL) 121 H (70-110) mg/dL Calcium (8.7-10.3) mg/dL Alkaline Phosphatase (41-126) U/L Total Protein (6.2-8.2) g/dL Albumin (3.8-4.9) g/dL Albumin/Globulin Ratio (1.60-3.17) g/dL Microbiology - Last 24 Hours (Table) 07/29/21 08:15 Gram Stain - Preliminary Pleural Fluid Body Fluid Culture - Preliminary 07/27/21 21:45 Blood Culture - Preliminary Blood No Growth after 72 hours 07/27/21 21:30 Blood Culture - Preliminary Blood No Growth after 72 hours 07/29/21 08:15 Acid Fast Bacilli Smear - Final Pleural Fluid Acid Fast Bacilli Culture - Preliminary 07/28/21 18:15 Urine Culture - Final Urine,Clean Catch Assessment and Plan Assessment: Acute on chronic hypoxic respiratory failure secondary to a moderate size left pleural effusion secondary to metastatic adenocarcinoma of the esophagus. Status post left-sided thoracentesis with 1.5 L of bloody fluid returned on 07/29/2021. Fluid analysis feels an exudate with a protein of 0.6 and LDH 628. Cytology pending. Metastatic adenocarcinoma of the esophagus Recurrent right-sided pleural effusion, status post Pleurx catheter placement on 06/17/2021 and attempted to drain 07/31/2021 with minimal output. Chronic dysphagia History of COPD Diabetes mellitus, type II Hypertension Hyperlipidemia Osteoarthritis Obstructive sleep apnea on CPAP History of anxiety Plan: The patient was seen and evaluated Chest x-ray, medications and labs reviewed Minimal output of Pleurx catheter today of the right Chest x-ray continues to show bilateral effusions left greater than right Remains on diuretics, antibiotics Titrate the FiO2 as tolerated I have personally seen and examined the patient, performed the documentation and the assessment and plan as written. Number of minutes spent on the visit: 10.
[2021-07-31] MEDS: LEVOFLOXACIN 500MG-D5W PMX 500 MG in DEXTROSE/WATER 1 100ML.BAG IVPB SCH (11:37)
[2021-07-31 11:48] LABS: Glucose,Whole Blood 91 mg/dL (70-110)
[2021-07-31 17:29] LABS: Glucose,Whole Blood 131 mg/dL (70-110)
[2021-07-31 20:13] LABS: Glucose,Whole Blood 136 mg/dL (70-110)
[2021-07-31] MEDS: OLANZapine 5 MG TAB PO SCH (21:24)
[2021-07-31] MEDS: ATORVASTATIN 10 MG TAB PO SCH (21:24)
[2021-07-31] MEDS: EZETIMIBE 10 MG TAB PO SCH (21:24)
[2021-08-01] MEDS: IPRATROPIUM-ALBUTEROL 3 ML NEB INHALATION PRN (01:19)
[2021-08-01] MEDS: HYDROmorphone 1 MG/ML 1 ML SYRINGE IVP PRN ×5 (03:48→21:44)
[2021-08-01] MEDS: guaiFENesin-Coden 100-10MG/5ML 10 ML CUP PO SCH ×5 (05:16→21:46)
[2021-08-01] MEDS: diphenhydrAMINE 25 MG CAP PO SCH ×4 (05:16→21:47)
[2021-08-01] MEDS: HYDROcodone/APAP 15 ML SOLUTION PO SCH ×5 (05:16→21:46)
[2021-08-01] MEDS: MAG HYDROX/AL HYDROX/SIMETH 30 ML, diphenhydrAMINE ELIXIR 75 MG, LIDOCAINE VISCOUS 2% 3... PO SCH ×18 (05:16→23:53)
[2021-08-01] MEDS: PANTOPRAZOLE 40 MG TABLET PO SCH ×2 (06:13→17:23)
[2021-08-01] MEDS: ALPRAZolam 0.25 MG TAB PO SCH ×3 (06:13→17:23)
[2021-08-01] MEDS: LORATADINE 10 MG TAB PO SCH (06:13)
[2021-08-01] MEDS: METOPROLOL SUCCINATE (ER) 50 MG TAB.ER.24H PO SCH ×2 (06:13→17:23)
[2021-08-01] MEDS: SUCRALFATE 1 GM TAB PO SCH ×4 (06:13→23:52)
[2021-08-01] MEDS: glipiZIDE 5 MG TAB PO SCH ×2 (06:13→17:23)
[2021-08-01] MEDS: FLUTICASONE 50MCG/SPRAY NASAL 16GM EA NOSTRIL SCH ×2 (06:15→17:24)
[2021-08-01] MEDS: ARTIFICIAL TEARS-HYPROMELLOSE DROPS 15 ML BTL BOTH EYES SCH ×2 (06:15→17:24)
[2021-08-01 07:00] LABS: Glucose,Whole Blood 143 mg/dL (70-110)
[2021-08-01] MEDS: ENOXAPARIN 40 MG/0.4 ML SYRINGE SQ SCH (07:19)
[2021-08-01] MEDS: METOCLOPRAMIDE 10 MG TAB PO SCH ×2 (07:42→20:04)
[2021-08-01] MEDS: IPRATROPIUM-ALBUTEROL 3 ML NEB INHALATION SCH ×4 (08:37→20:18)
[2021-08-01] MEDS: SYMBICORT 80-4.5 MCG INHALER INHALATION SCH ×2 (08:38→20:18)
[2021-08-01] MEDS: DICYCLOMINE 10 MG CAP PO SCH ×2 (08:38→11:51)
[2021-08-01] MEDS: FUROSEMIDE 10 MG/ML 2 ML VIAL IV SCH ×3 (08:38→23:52)
[2021-08-01 09:30] LABS: Anion Gap 6.1 mmol/L (10.00-18.00); BUN/Creat Ratio 17.01 Ratio (12.00-20.00); Blood Urea Nitrogen 8.7 mg/dL (9.0-27.0); Calcium 7.4 mg/dL (8.7-10.3); Carbon Dioxide 31.6 mmol/L (20.0-27.5); Globulin 2.2 g/dL (1.6-3.3); Non-African American GFR(CKD) 109.6 (60.0-200.0); Potassium 3.1 mmol/L (3.5-5.5)
[2021-08-01 09:31] LABS: Albumin 1.8 g/dL (3.8-4.9); Albumin/Globulin Ratio 0.81 (1.60-3.17); Total Bilirubin 0.3 mg/dL (0.30-1.20)
[2021-08-01 10:30] LABS: Basophils # (A) 0.01 X 10*3/uL (0.00-0.10); Basophils % (A) 0.4 %; Eosinophils # (A) 0.02 X 10*3/uL (0.04-0.35); Eosinophils % (A) 0.7 %; HCT 22.9 % (39.6-50.0); Immature Grans, Automated 0.4 %; Lymphocytes # (A) 0.41 X 10*3/uL (0.90-5.00); Lymphocytes % (A) 15.3 %; MCH 26.4 pg (27.0-32.0); MCHC 29.7 g/dL (32.0-37.0); MCV 88.8 fL (80.0-97.0); Mean Platelet Volume 9.5 fL (9.5-12.2); Monocytes % (A) 18.7 %; NRBC Per 100 WBC 0 /100 WBCS (0.0-0.0); Neutrophils # (A) 1.73 X 10*3/uL (1.80-7.70); Neutrophils % (A) 64.5 %; Platelet Count 237 X 10*3/uL (140-440); RBC 2.58 X 10*6/uL (4.40-5.60); RDW 17.6 % (11.5-14.5); WBC 2.68 X 10*3/uL (4.50-10.00)
[2021-08-01 10:32] LABS: HGB 6.8 g/dL (13.0-17.0)
[2021-08-01] MEDS: LEVOFLOXACIN 500MG-D5W PMX 500 MG in DEXTROSE/WATER 1 100ML.BAG IVPB SCH (10:57)
[2021-08-01] MEDS: POTASSIUM CHLORIDE 20 MEQ in WATER FOR INJECTION 1 100ML.BAG IVPB SCH ×3 (10:58→15:01)
[2021-08-01 11:43] LABS: Glucose,Whole Blood 129 mg/dL (70-110)
[2021-08-01] MEDS: ONDANSETRON 4 MG TAB PO PRN (12:02)
--- NOTE | 2021-08-01 12:30 | P.PN ---
Subjective Progress Note Date: 08/01/21 CHIEF COMPLAINT: Esophageal cancer HISTORY OF PRESENT ILLNESS: Patient complains of pain with swallowing food and pills. Initially scheduled for PEG tube placement today. However, patient is requiring a blood transfusion for hemoglobin of 6.8 and potassium replacement. PEG tube will be rescheduled for tomorrow. Afebrile. Mildly tachycardic. WBC 2.68 Hgb 6.8 platelets 237 sodium 139 potassium 3.1 creatinine 0.5 PHYSICAL EXAM: VITAL SIGNS: Reviewed. GENERAL: Well-developed in no acute distress. HEENT: No sclera icterus. Extraocular movements grossly intact. Moist buccal mucosa. Head is atraumatic, normocephalic. ABDOMEN: Soft. Nondistended. Nontender. NEUROLOGIC: Alert and oriented. Cranial nerves II through XII grossly intact. ASSESSMENT: 1. Esophageal cancer 2. Dysphagia 3. Bilateral pleural effusions 4. Moderate protein Malnutrition 5. Hypokalemia PLAN: -Patient's PEG tube placement rescheduled for tomorrow, 08/02/[address] becerra -Nothing by mouth after midnight Physician [employer] note has been reviewed by physician. Signing provider agrees with the documented findings, assessment, and plan of care. Objective - Vital Signs Vital signs: Vital Signs Temp 97.8 F 08/01/21 05:00 Pulse 112 H 08/01/21 12:25 Resp 16 08/01/21 05:00 BP 119/77 08/01/21 05:00 Pulse Ox 97 08/01/21 05:00 FiO2 21 07/31/21 19:46 Intake & Output 07/31/21 08/01/21 08/01/21 18:59 06:59 18:59 Other: Voiding Method Bedside Commode Bedside Commode Bedside Commode # Voids 4 1 - Labs CBC & Chem 7: 08/01/21 05:34 08/01/21 05:34 Labs: Abnormal Lab Results - Last 24 Hours (Table) 07/31/21 07/31/21 08/01/21 Range/Units 17:26 20:11 05:34 WBC 2.68 L (4.50-10.00) X 10*3/uL RBC 2.58 L (4.40-5.60) X 10*6/uL Hgb 6.8 L* (13.0-17.0) g/dL Hct 22.9 L (39.6-50.0) % MCH 26.4 L (27.0-32.0) pg MCHC 29.7 L (32.0-37.0) g/dL RDW 17.6 H (11.5-14.5) % Neutrophils # 1.73 L (1.80-7.70) X 10*3/uL Lymphocytes # 0.41 L (0.90-5.00) X 10*3/uL Eosinophils # 0.02 L (0.04-0.35) X 10*3/uL Potassium (3.5-5.5) mmol/L Carbon Dioxide (20.0-27.5) mmol/L Anion Gap (10.00-18.00) mmol/L BUN (9.0-27.0) mg/dL Creatinine (0.6-1.5) mg/dL Glucose (70-110) mg/dL POC Glucose (mg/dL) 131 H 136 H (70-110) mg/dL Calcium (8.7-10.3) mg/dL Total Protein (6.2-8.2) g/dL Albumin (3.8-4.9) g/dL Albumin/Globulin Ratio (1.60-3.17) g/dL Crossmatch 08/01/21 08/01/21 08/01/21 Range/Units 05:34 06:58 10:48 WBC (4.50-10.00) X 10*3/uL RBC (4.40-5.60) X 10*6/uL Hgb (13.0-17.0) g/dL Hct (39.6-50.0) % MCH (27.0-32.0) pg MCHC (32.0-37.0) g/dL RDW (11.5-14.5) % Neutrophils # (1.80-7.70) X 10*3/uL Lymphocytes # (0.90-5.00) X 10*3/uL Eosinophils # (0.04-0.35) X 10*3/uL Potassium 3.1 L (3.5-5.5) mmol/L Carbon Dioxide 31.6 H (20.0-27.5) mmol/L Anion Gap 6.10 L (10.00-18.00) mmol/L BUN 8.7 L (9.0-27.0) mg/dL Creatinine 0.5 L (0.6-1.5) mg/dL Glucose 122 H (70-110) mg/dL POC Glucose (mg/dL) 143 H (70-110) mg/dL Calcium 7.4 L (8.7-10.3) mg/dL Total Protein 4.0 L (6.2-8.2) g/dL Albumin 1.8 L (3.8-4.9) g/dL Albumin/Globulin Ratio 0.81 L (1.60-3.17) g/dL Crossmatch See Detail 08/01/21 Range/Units 11:41 WBC (4.50-10.00) X 10*3/uL RBC (4.40-5.60) X 10*6/uL Hgb (13.0-17.0) g/dL Hct (39.6-50.0) % MCH (27.0-32.0) pg MCHC (32.0-37.0) g/dL RDW (11.5-14.5) % Neutrophils # (1.80-7.70) X 10*3/uL Lymphocytes # (0.90-5.00) X 10*3/uL Eosinophils # (0.04-0.35) X 10*3/uL Potassium (3.5-5.5) mmol/L Carbon Dioxide (20.0-27.5) mmol/L Anion Gap (10.00-18.00) mmol/L BUN (9.0-27.0) mg/dL Creatinine (0.6-1.5) mg/dL Glucose (70-110) mg/dL POC Glucose (mg/dL) 129 H (70-110) mg/dL Calcium (8.7-10.3) mg/dL Total Protein (6.2-8.2) g/dL Albumin (3.8-4.9) g/dL Albumin/Globulin Ratio (1.60-3.17) g/dL Crossmatch Microbiology - Last 24 Hours (Table) 07/29/21 08:15 Gram Stain - Preliminary Pleural Fluid Body Fluid Culture - Preliminary 07/27/21 21:45 Blood Culture - Preliminary Blood No Growth after 96 hours 07/27/21 21:30 Blood Culture - Preliminary Blood No Growth after 96 hours
--- NOTE | 2021-08-01 15:54 | P.PN ---
Subjective Progress Note Date: 08/01/21 Left pleural effusion, shortness of breath This is a very pleasant 70-year-old male patient with a history of hypertension, hyperlipidemia, diabetes mellitus, obstructive sleep apnea utilizing CPAP osteoa rthritis with multiple orthopedic surgeries, nonsmoker. The patient also has a history of esophageal cancer with previous stent placed in April 2021. 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 Most recently he had a right-sided Pleurx catheter placement on 06/17/2021 and fluid was positive for metastatic adenocarcinoma. He is currently on Keytruda. He had been having decreased amounts of pleural fluid that he had been draining at home. Less than 25-50 mL now. He presented here to the emergency room yesterday with complaints of increasing shortness of breath and is now found to have a large left-sided pleural effusion. Ultrasound of the left chest reveals a 12.5 cm pocket. I count 14.8. Hemoglobin 8.6. Platelets 349. INR 1.2. Sodium 134. Potassium 3.1. BUN 12. Creatinine 0.47. AST 20. ALT 10. Blood glucose 153. He is seen today in consultation in the emergency department. He's currently resting fairly comfortable on the stretcher. Awake and alert in no acute distress. He is maintaining O2 saturations in the 90s on 2 L/m per nasal cannula. He has 0.9% normal saline at 130 ML's per hour. He is dyspneic with exertion. He also states he is quite fatigued and weak today. The patient was seen in follow-up on 07/29/2021. He is currently sitting up at the bedside. Awake and alert in no acute distress. He is maintaining O2 saturations in the mid 90s on 4 L/m per nasal cannula. He's been afebrile. Hemodynamically stable. Chest x-ray had revealed bilateral pleural effusions left greater than right. He has a right-sided Pleurx catheter in place. He did undergo a left-sided thoracentesis today with 1.5 L of bloody fluid returned. Fluid analysis and cytology are pending. Follow-up chest x-ray revealed no evidence of pneumothorax. Blood culture reveals no growth. Urine culture pending. White count 7.5. Hemoglobin 8.0. Platelet count 265,000. Sodium 140. Potassium 3.0. BUN 10. Creatinine 0.5. Glucose 112. He remains on Symbicort, DuoNeb inhalations, antibiotics in the form of Levaquin. Lovenox for DVT prophylaxis. The patient is seen today 07/30/2021 in follow-up on the regular medical floor. He sitting up in bed. Awake and alert in no acute distress. Maintaining good O2 saturations in the 90s on room air. Slightly tachycardic. Afebrile. He did undergo a left-sided thoracentesis yesterday. Cytology pending. Fluid analysis was exudate with a total protein of 2.6 and LDH of 628. Grossly bloody. Cultures pending. Urine culture revealed no growth. Blood cultures reveal no growth. White count 4.4. Hemoglobin 7.2. Platelets 227. Glucose 151. He remains on DuoNeb inhalations, Symbicort, IV diuretics. He is on antibiotics in the form of Levaquin. The patient is seen today 07/31/2021 follow-up on the regular medical floor. He is awake and alert in no acute distress. He is resting in bed. He has ongoing loose cough, shortness of breath with exertion. Maintaining O2 saturations in the 90s on 4 L/m per nasal cannula. He is afebrile. Hemodynamically stable. Chest x-ray continues to show bilateral effusions left greater than right. Right-sided Pleurx catheter in place and drained today with only a small amount of fluid removed. Pleural fluid cultures pending and recent left-sided thorace ntesis. White count 4.2. Hemoglobin 7.6. Platelets 2:30. Sodium 142. Potassium 3.1. BUN 9. Creatinine 0.6. Glucose 121. He is continued on IV Lasix 20 mg every 8 hours, DuoNeb inhalations, Symbicort, antibiotics in the form of Levaquin. Lovenox for DVT prophylaxis. 08/01/2021, the patient is essentially the same. Output from the right-sided Pleurx catheter for minimal and the patient is postop thoracentesis on the left and a fluid cytology is pending from the left. The patient was supposed to undergo a PEG tube insertion today and discussed canceled and postponedand rescheduled as the patient's hemoglobin came down to 6.8 and the patient will be receiving unit of packed RBC. noted the patient is chronically anemic. The hemoglobin has been gradually droppingwithout any signs of an acute GI bleed.the patient as mentioned is going to receive units of packed RBC. The patient has no signs of any significant respiratory distress. The patient is known to have obstructive sleep apnea and the patient has a CPAP machine at the bedside which she is using on a regular basis.no significant respiratory distress. The most recent chest x-ray from yesterday showed CHF with some pleural effusions bilaterally and overall appearance of is stable. The patient has small effusions bilaterally. Objective - Vital Signs Vital signs: Vital Signs Temp 98.1 F 08/01/21 15:00 Pulse 104 H 08/01/21 15:49 Resp 18 08/01/21 15:00 BP 117/76 08/01/21 15:00 Pulse Ox 96 08/01/21 15:00 FiO2 21 07/31/21 19:46 Intake & Output 07/31/21 08/01/21 08/01/21 18:59 06:59 18:59 Intake Total 310 Balance 310 Weight 125.645 kg Intake: Blood Product 310 Rc As-1 Unit 310 [id number] Other: Voiding Method Bedside Commode Bedside Commode Bedside Commode # Voids 4 1 - Exam GENERAL EXAM: Alert, 70-year-old gentleman, on 4 L nasal cannula, fairly comfortable in no apparent distress. HEAD: Normocephalic. EYES: Normal reaction of pupils, equal size. NOSE: Clear with pink turbinates. THROAT: No erythema or exudates. NECK: No masses, no JVD. CHEST: No chest wall deformity. Right-sided Mediport in place. Right-sided Pleurx catheter in place. LUNGS: Equal air entry with bibasilar crackles. Diminished in the left lung base. CVS: S1 and S2 normal with no audible murmur, regular rhythm. ABDOMEN: No hepatosplenomegaly, normal bowel sounds, no guarding or rigidity. SPINE: No scoliosis or deformity SKIN: No rashes CENTRAL NERVOUS SYSTEM: No focal deficits, tone is normal in all 4 extremities. EXTREMITIES: There is no peripheral edema. No clubbing, no cyanosis. Peripheral pulses are intact. - Labs CBC & Chem 7: 08/01/21 05:34 08/01/21 05:34 Labs: Abnormal Lab Results - Last 24 Hours (Table) 07/31/21 07/31/21 08/01/21 Range/Units 17:26 20:11 05:34 WBC 2.68 L (4.50-10.00) X 10*3/uL RBC 2.58 L (4.40-5.60) X 10*6/uL Hgb 6.8 L* (13.0-17.0) g/dL Hct 22.9 L (39.6-50.0) % MCH 26.4 L (27.0-32.0) pg MCHC 29.7 L (32.0-37.0) g/dL RDW 17.6 H (11.5-14.5) % Neutrophils # 1.73 L (1.80-7.70) X 10*3/uL Lymphocytes # 0.41 L (0.90-5.00) X 10*3/uL Eosinophils # 0.02 L (0.04-0.35) X 10*3/uL Potassium (3.5-5.5) mmol/L Carbon Dioxide (20.0-27.5) mmol/L Anion Gap (10.00-18.00) mmol/L BUN (9.0-27.0) mg/dL Creatinine (0.6-1.5) mg/dL Glucose (70-110) mg/dL POC Glucose (mg/dL) 131 H 136 H (70-110) mg/dL Calcium (8.7-10.3) mg/dL Total Protein (6.2-8.2) g/dL Albumin (3.8-4.9) g/dL Albumin/Globulin Ratio (1.60-3.17) g/dL Crossmatch 08/01/21 08/01/21 08/01/21 Range/Units 05:34 06:58 10:48 WBC (4.50-10.00) X 10*3/uL RBC (4.40-5.60) X 10*6/uL Hgb (13.0-17.0) g/dL Hct (39.6-50.0) % MCH (27.0-32.0) pg MCHC (32.0-37.0) g/dL RDW (11.5-14.5) % Neutrophils # (1.80-7.70) X 10*3/uL Lymphocytes # (0.90-5.00) X 10*3/uL Eosinophils # (0.04-0.35) X 10*3/uL Potassium 3.1 L (3.5-5.5) mmol/L Carbon Dioxide 31.6 H (20.0-27.5) mmol/L Anion Gap 6.10 L (10.00-18.00) mmol/L BUN 8.7 L (9.0-27.0) mg/dL Creatinine 0.5 L (0.6-1.5) mg/dL Glucose 122 H (70-110) mg/dL POC Glucose (mg/dL) 143 H (70-110) mg/dL Calcium 7.4 L (8.7-10.3) mg/dL Total Protein 4.0 L (6.2-8.2) g/dL Albumin 1.8 L (3.8-4.9) g/dL Albumin/Globulin Ratio 0.81 L (1.60-3.17) g/dL Crossmatch See Detail 08/01/21 Range/Units 11:41 WBC (4.50-10.00) X 10*3/uL RBC (4.40-5.60) X 10*6/uL Hgb (13.0-17.0) g/dL Hct (39.6-50.0) % MCH (27.0-32.0) pg MCHC (32.0-37.0) g/dL RDW (11.5-14.5) % Neutrophils # (1.80-7.70) X 10*3/uL Lymphocytes # (0.90-5.00) X 10*3/uL Eosinophils # (0.04-0.35) X 10*3/uL Potassium (3.5-5.5) mmol/L Carbon Dioxide (20.0-27.5) mmol/L Anion Gap (10.00-18.00) mmol/L BUN (9.0-27.0) mg/dL Creatinine (0.6-1.5) mg/dL Glucose (70-110) mg/dL POC Glucose (mg/dL) 129 H (70-110) mg/dL Calcium (8.7-10.3) mg/dL Total Protein (6.2-8.2) g/dL Albumin (3.8-4.9) g/dL Albumin/Globulin Ratio (1.60-3.17) g/dL Crossmatch Microbiology - Last 24 Hours (Table) 07/29/21 08:15 Gram Stain - Preliminary Pleural Fluid Body Fluid Culture - Preliminary 07/27/21 21:45 Blood Culture - Preliminary Blood No Growth after 96 hours 07/27/21 21:30 Blood Culture - Preliminary Blood No Growth after 96 hours Assessment and Plan Plan: Acute on chronic hypoxic respiratory failure secondary to a moderate size left pleural effusion secondary to metastatic adenocarcinoma of the esophagus. Status post left-sided thoracentesis with 1.5 L of bloody fluid returned on 07/29/2021. Fluid analysis feels an exudate with a protein of 0.6 and LDH 628. Cytology pending.meanwhile, the patient is clinically stable. Output from the Pleurx catheter the minimal as mentioned. Metastatic adenocarcinoma of the esophagus, post systemic chemotherapy, currently on Keytruda and 5-FU. Awaiting PEG tube insertion Recurrent right-sided pleural effusion, status post Pleurx catheter placement on 06/17/2021 and attempted to drain 07/31/2021 with minimal output. Chronic dysphagia History of COPD Diabetes mellitus, type II Hypertension Hyperlipidemia Osteoarthritis Obstructive sleep apnea on CPAP History of anxiety chronic anemia, multifactorial, no evidence of any acute GI bleed Hypoproteinemia and hypoalbuminemia Extensive lower extremity edema and the patient started on IV Lasix for third spacing Plan Since using the units of packed RBC Hemoglobin in a.m. PEG tube insertion n a.m. Keep the patient nothing by mouth after midnight continue diuretics as the patient has significant third spacing monitor electrolytes Continue to follow
[2021-08-01] MEDS ORDERED: Magnesium Replacement Protocol 1 EACH MISC MISCELLANE PRN (16:37)
--- NOTE | 2021-08-01 16:43 | P.PN ---
Subjective Progress Note Date: 08/01/21 Principal diagnosis: Hypoxia, odynophagia, met eso adenocarcinoma In f/u today pt had an esophageal spasm, significant pain. He can have randomly but, notes more when he is eating and drinking. He is sched to have a PEG tube placed today. His breathing is better since admit, he had a 1.5L lt thoracentesis, pending cytology, his rt pleurex drain has not been draining much fluid. Objective - Vital Signs Vital signs: Vital Signs Temp 98.1 F 08/01/21 15:00 Pulse 104 H 08/01/21 15:49 Resp 18 08/01/21 15:00 BP 117/76 08/01/21 15:00 Pulse Ox 96 08/01/21 15:00 FiO2 21 07/31/21 19:46 Intake & Output 07/31/21 08/01/21 08/01/21 18:59 06:59 18:59 Intake Total 310 Balance 310 Weight 125.645 kg Intake: Blood Product 310 Rc As-1 Unit 310 [id number] Other: Voiding Method Bedside Commode Bedside Commode Bedside Commode # Voids 4 1 - Constitutional General appearance: Present: cooperative, mild distress, morbidly obese - EENT Eyes: Present: anicteric sclerae, EOMI ENT: Present: hearing grossly normal - Neck Neck: Present: lymphadenopathy (2.5cm lt supraclavicular LN, firm, fixed ) - Respiratory Respiratory: bilateral: CTA, diminished (bases) - Cardiovascular Rhythm: regular Heart sounds: normal: S1, S2 Abnormal Heart Sounds: Absent: systolic murmur, diastolic murmur, rub, S3 Gallop, S4 Gallop, click, other - Peripheral edema leg Peripheral Edema: right: 2+, Pitting, left: 1+ - Gastrointestinal General gastrointestinal: Present: normal bowel sounds, soft, tenderness. Absent: absent bowel sounds, decreased bowel sounds, distended, hepatomegaly, hyperactive bowel sounds, organomegaly, rigid, scaphoid, splenomegaly, umbilical hernia, ventral hernia Localized gastrointestinal: tender: epigastric periumbilical - Integumentary Integumentary: Present: pale - Neurologic Neurologic: Present: CNII-XII intact - Musculoskeletal Musculoskeletal: Present: generalized weakness - Psychiatric Psychiatric: Present: A&O x's 3, appropriate affect, intact judgment & insight - Labs CBC & Chem 7: 08/01/21 05:34 08/01/21 05:34 Labs: Abnormal Lab Results - Last 24 Hours (Table) 07/31/21 07/31/21 08/01/21 Range/Units 17:26 20:11 05:34 WBC 2.68 L (4.50-10.00) X 10*3/uL RBC 2.58 L (4.40-5.60) X 10*6/uL Hgb 6.8 L* (13.0-17.0) g/dL Hct 22.9 L (39.6-50.0) % MCH 26.4 L (27.0-32.0) pg MCHC 29.7 L (32.0-37.0) g/dL RDW 17.6 H (11.5-14.5) % Neutrophils # 1.73 L (1.80-7.70) X 10*3/uL Lymphocytes # 0.41 L (0.90-5.00) X 10*3/uL Eosinophils # 0.02 L (0.04-0.35) X 10*3/uL Potassium (3.5-5.5) mmol/L Carbon Dioxide (20.0-27.5) mmol/L Anion Gap (10.00-18.00) mmol/L BUN (9.0-27.0) mg/dL Creatinine (0.6-1.5) mg/dL Glucose (70-110) mg/dL POC Glucose (mg/dL) 131 H 136 H (70-110) mg/dL Calcium (8.7-10.3) mg/dL Total Protein (6.2-8.2) g/dL Albumin (3.8-4.9) g/dL Albumin/Globulin Ratio (1.60-3.17) g/dL Crossmatch 08/01/21 08/01/21 08/01/21 Range/Units 05:34 06:58 10:48 WBC (4.50-10.00) X 10*3/uL RBC (4.40-5.60) X 10*6/uL Hgb (13.0-17.0) g/dL Hct (39.6-50.0) % MCH (27.0-32.0) pg MCHC (32.0-37.0) g/dL RDW (11.5-14.5) % Neutrophils # (1.80-7.70) X 10*3/uL Lymphocytes # (0.90-5.00) X 10*3/uL Eosinophils # (0.04-0.35) X 10*3/uL Potassium 3.1 L (3.5-5.5) mmol/L Carbon Dioxide 31.6 H (20.0-27.5) mmol/L Anion Gap 6.10 L (10.00-18.00) mmol/L BUN 8.7 L (9.0-27.0) mg/dL Creatinine 0.5 L (0.6-1.5) mg/dL Glucose 122 H (70-110) mg/dL POC Glucose (mg/dL) 143 H (70-110) mg/dL Calcium 7.4 L (8.7-10.3) mg/dL Total Protein 4.0 L (6.2-8.2) g/dL Albumin 1.8 L (3.8-4.9) g/dL Albumin/Globulin Ratio 0.81 L (1.60-3.17) g/dL Crossmatch See Detail 08/01/21 Range/Units 11:41 WBC (4.50-10.00) X 10*3/uL RBC (4.40-5.60) X 10*6/uL Hgb (13.0-17.0) g/dL Hct (39.6-50.0) % MCH (27.0-32.0) pg MCHC (32.0-37.0) g/dL RDW (11.5-14.5) % Neutrophils # (1.80-7.70) X 10*3/uL Lymphocytes # (0.90-5.00) X 10*3/uL Eosinophils # (0.04-0.35) X 10*3/uL Potassium (3.5-5.5) mmol/L Carbon Dioxide (20.0-27.5) mmol/L Anion Gap (10.00-18.00) mmol/L BUN (9.0-27.0) mg/dL Creatinine (0.6-1.5) mg/dL Glucose (70-110) mg/dL POC Glucose (mg/dL) 129 H (70-110) mg/dL Calcium (8.7-10.3) mg/dL Total Protein (6.2-8.2) g/dL Albumin (3.8-4.9) g/dL Albumin/Globulin Ratio (1.60-3.17) g/dL Crossmatch Microbiology - Last 24 Hours (Table) 07/29/21 08:15 Gram Stain - Preliminary Pleural Fluid Body Fluid Culture - Preliminary 07/27/21 21:45 Blood Culture - Preliminary Blood No Growth after 96 hours 07/27/21 21:30 Blood Culture - Preliminary Blood No Growth after 96 hours - Imaging and Cardiology Chest x-ray: report reviewed Assessment and Plan (1) Dysphagia Current Visit: Yes Status: Acute Priority: High Code(s): R13.10 - DYSPHAGIA, UNSPECIFIED SNOMED Code(s): 87854596 (2) Esophageal cancer Current Visit: Yes Status: Acute Priority: High Code(s): C15.9 - MALIGNANT NEOPLASM OF ESOPHAGUS, UNSPECIFIED SNOMED Code(s): 190970349 (3) Failure to thrive in adult Current Visit: Yes Status: Acute Priority: High Code(s): R62.7 - ADULT FAILURE TO THRIVE SNOMED Code(s): 894476130 (4) Pleural effusion, left Current Visit: Yes Status: Acute Priority: High Code(s): J90 - PLEURAL EFFUSION, NOT ELSEWHERE CLASSIFIED SNOMED Code(s): 59386007 Plan: Sent to ER due to severe SOB. Resp status improved after lt thoracentesis. Cytology pending. Lt supraclav LN - enlarged from IO? Will cont to follow. Odynophagia with eso spasm. Plan is for PEG insertion to supplement nutrition. Pain meds ordered.
[2021-08-01 16:55] LABS: Anisocytosis Slight; HCT 27.6 % (39.0-53.0); HGB 8.6 gm/dL (13.0-17.5); Hypochromasia Moderate; MCH 27.9 pg (25.0-35.0); MCHC 31.3 g/dL (31.0-37.0); MCV 89.2 fL (80.0-100.0); Mean Platelet Volume 7.3; Platelet Count 306 k/uL (150-450); Poikilocytosis Slight; RBC 3.09 m/uL (4.30-5.90); RDW 17.5 % (11.5-15.5); WBC 3.1 k/uL (3.8-10.6)
[2021-08-01] MEDS: MAGNESIUM SULFATE-D5W PMX 1 GM in DEXTROSE/WATER 1 100ML.BAG IVPB SCH ×3 (17:23→20:04)
[2021-08-01 17:32] LABS: Glucose,Whole Blood 149 mg/dL (70-110)
--- NOTE | 2021-08-01 18:22 | P.PN ---
Subjective Progress Note Date: 08/01/21 Xiang Pimentel, 70-year-old male patient who presented to [facility] emergency room with a chief complaint of worsening shortness of breath patient has a known history of esophageal cancer, he has chronic right sided pleural effusion, he had a right-sided Pleurx catheter placement on 06/17/2021 and fluid was positive for metastatic adenocarcinoma. He was evaluated in the emergency room vital examination on presentation revealed a temperature of 97.9 pulse 118 respiration 22 blood pressure 129/78 pulse ox 95% on 3 L nasal cannula Laboratory data reveals a white blood count of 14.8 hemoglobin 8.6 platelet count 349 sodium 134 potassium 3.1 chloride 99 CO2 34 BUN 12 creatinine 0.47 Testing in the emergency room revealed chest x-ray done in the emergency room revealed evidence of congestive heart failure with pleural effusions, fluid increased on the left side compared to old exam Patient was admitted to medical floor for further evaluation and treatment cardiology and pulmonary consultation were requested Past medical history history of hypertension, hyperlipidemia, diabetes mellitus, obstructive sleep apnea utilizing CPAP osteoarthritis with multiple orthopedic surgeries, nonsmoker. The patient also has a history of esophageal cancer with previous stent placed in April 2021. 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 On 07/29/2021 patient's alert and oriented 3. Patient underwent arthrocentesis the same on the left side per Dr. Ling. Patient reports significant improvement with pain and breathing. Talks about possible feeding tube per patient and . At this time patient denies chest pain. Patient denies nausea vomiting or diarrhea. Patient denies any urinary burning or frequency. On 07/30/2021 patient was seen and examined on the medical floor, he is alert and oriented 3 in no apparent distress, he is complaining of shortness of breat h with any activity he is complaining of bilateral lower extremity swelling, pain is better controlled at this time, there is no fever or chills no headache or dizziness no chest pain no nausea or vomiting no abdominal pain no diarrhea and no urinary symptoms. Patient was seen by Dr. Cole this morning, he is scheduled for PEG tube feeding placement on Sunday, patient had multiple questions regarding the pros and cons of initiating tube feeding, this was discussed with him in details. On 07/31/2021 patient's alert and oriented 3. Patient having some increased shortness of breath chest x-ray has been ordered per pulmonary to assess if patient needs fluid draining from lungs. Patient is tentatively scheduled for PEG tube placement tomorrow per surgical services. At this time patient denies chest pain. Patient denies nausea vomiting or diarrhea. Patient denies any urinary burning or frequency On 08/01/2021 patient was seen and examined on the medical floor he is alert and oriented 3 in no apparent distress, hemoglobin was down to 6.8 this morning 1 unit of red blood cell transfusion was ordered, PEG tube placement was put on hold at this time, otherwise patient denies any complaint his pain is well controlled. Objective - Vital Signs Vital signs: Vital Signs Temp 98.1 F 08/01/21 15:00 Pulse 104 H 08/01/21 15:49 Resp 18 08/01/21 15:00 BP 117/76 08/01/21 15:00 Pulse Ox 96 08/01/21 15:00 FiO2 21 07/31/21 19:46 Intake & Output 07/31/21 08/01/21 08/01/21 18:59 06:59 18:59 Intake Total 310 Balance 310 Weight 125.645 kg Intake: Blood Product 310 Rc As-1 Unit 310 [id number] Other: Voiding Method Bedside Commode Bedside Commode Bedside Commode # Voids 4 1 - Exam In general patient is alert and oriented x 3 in no distress HEENT head normocephalic and atraumatic Neck is supple no JVD no goiter no lymphadenopathy no carotid bruit Chest examination reveals a scattered bilateral crackles no wheezing Cardiac exam reveals regular heart sounds S1 and S2 no gallops no murmurs Abdomen is soft nontender no organomegaly with normal bowel sounds Extremity exam reveals no edema no cyanosis or clubbing Neurological examination reveals no gross focal deficits - Labs CBC & Chem 7: 08/01/21 16:27 08/01/21 05:34 Labs: Abnormal Lab Results - Last 24 Hours (Table) 07/31/21 08/01/21 08/01/21 Range/Units 20:11 05:34 05:34 WBC 2.68 L (4.50-10.00) X 10*3/uL RBC 2.58 L (4.40-5.60) X 10*6/uL Hgb 6.8 L* (13.0-17.0) g/dL Hct 22.9 L (39.6-50.0) % MCH 26.4 L (27.0-32.0) pg MCHC 29.7 L (32.0-37.0) g/dL RDW 17.6 H (11.5-14.5) % Neutrophils # 1.73 L (1.80-7.70) X 10*3/uL Lymphocytes # 0.41 L (0.90-5.00) X 10*3/uL Eosinophils # 0.02 L (0.04-0.35) X 10*3/uL Potassium 3.1 L (3.5-5.5) mmol/L Carbon Dioxide 31.6 H (20.0-27.5) mmol/L Anion Gap 6.10 L (10.00-18.00) mmol/L BUN 8.7 L (9.0-27.0) mg/dL Creatinine 0.5 L (0.6-1.5) mg/dL Glucose 122 H (70-110) mg/dL POC Glucose (mg/dL) 136 H (70-110) mg/dL Calcium 7.4 L (8.7-10.3) mg/dL Total Protein 4.0 L (6.2-8.2) g/dL Albumin 1.8 L (3.8-4.9) g/dL Albumin/Globulin Ratio 0.81 L (1.60-3.17) g/dL Crossmatch 08/01/21 08/01/21 08/01/21 Range/Units 06:58 10:48 11:41 WBC (4.50-10.00) X 10*3/uL RBC (4.40-5.60) X 10*6/uL Hgb (13.0-17.0) g/dL Hct (39.6-50.0) % MCH (27.0-32.0) pg MCHC (32.0-37.0) g/dL RDW (11.5-14.5) % Neutrophils # (1.80-7.70) X 10*3/uL Lymphocytes # (0.90-5.00) X 10*3/uL Eosinophils # (0.04-0.35) X 10*3/uL Potassium (3.5-5.5) mmol/L Carbon Dioxide (20.0-27.5) mmol/L Anion Gap (10.00-18.00) mmol/L BUN (9.0-27.0) mg/dL Creatinine (0.6-1.5) mg/dL Glucose (70-110) mg/dL POC Glucose (mg/dL) 143 H 129 H (70-110) mg/dL Calcium (8.7-10.3) mg/dL Total Protein (6.2-8.2) g/dL Albumin (3.8-4.9) g/dL Albumin/Globulin Ratio (1.60-3.17) g/dL Crossmatch See Detail 08/01/21 08/01/21 Range/Units 16:27 17:30 WBC 3.1 L (4.50-10.00) X 10*3/uL RBC 3.09 L (4.40-5.60) X 10*6/uL Hgb 8.6 L (13.0-17.0) g/dL Hct 27.6 L (39.6-50.0) % MCH (27.0-32.0) pg MCHC (32.0-37.0) g/dL RDW 17.5 H (11.5-14.5) % Neutrophils # (1.80-7.70) X 10*3/uL Lymphocytes # (0.90-5.00) X 10*3/uL Eosinophils # (0.04-0.35) X 10*3/uL Potassium (3.5-5.5) mmol/L Carbon Dioxide (20.0-27.5) mmol/L Anion Gap (10.00-18.00) mmol/L BUN (9.0-27.0) mg/dL Creatinine (0.6-1.5) mg/dL Glucose (70-110) mg/dL POC Glucose (mg/dL) 149 H (70-110) mg/dL Calcium (8.7-10.3) mg/dL Total Protein (6.2-8.2) g/dL Albumin (3.8-4.9) g/dL Albumin/Globulin Ratio (1.60-3.17) g/dL Crossmatch Microbiology - Last 24 Hours (Table) 07/29/21 08:15 Gram Stain - Preliminary Pleural Fluid Body Fluid Culture - Preliminary 07/27/21 21:45 Blood Culture - Preliminary Blood No Growth after 96 hours 07/27/21 21:30 Blood Culture - Preliminary Blood No Growth after 96 hours Assessment and Plan Plan: Esophageal cancer with metastatic disease Acute on chronic hypoxic respiratory failure, due to bilateral pleural effusions, patient also has congestion on chest x-ray, echocardiogram ordered and cardiology consultation requested to rule out congestive heart failure Recurrent right sided pleural effusion with recent Pleurx catheter placement one month ago Underlying history of hypertension Underlying history of diabetes mellitus type 2 Underlying history of hyperlipidemia Underlying history of obstructive sleep apnea maintained on CPAP Chronic pain related to esophageal cancer maintained on narcotics for pain management Underlying history of COPD At this time patient is admitted to medical floor Home medications reviewed and reordered Pulmonary and cardiology consultation was requested Status post thoracentesis on 07/29/2021 Tentative plans for PEG tube placement 08/01/2021 For DVT prophylaxis we will use Lovenox For GI prophylaxis continue Protonix Will follow closely
[2021-08-01 19:45] LABS: Glucose,Whole Blood 154 mg/dL (70-110)
[2021-08-01] MEDS: OLANZapine 5 MG TAB PO SCH (20:04)
[2021-08-01] MEDS: EZETIMIBE 10 MG TAB PO SCH (21:47)
[2021-08-01] MEDS: ATORVASTATIN 10 MG TAB PO SCH (21:47)
[2021-08-02] MEDS: HYDROmorphone 1 MG/ML 1 ML SYRINGE IVP PRN ×7 (02:25→23:45)
[2021-08-02] MEDS: ALPRAZolam 0.25 MG TAB PO SCH ×4 (03:53→17:45)
[2021-08-02] MEDS: diphenhydrAMINE 25 MG CAP PO SCH ×4 (03:53→21:06)
[2021-08-02] MEDS: MAG HYDROX/AL HYDROX/SIMETH 30 ML, diphenhydrAMINE ELIXIR 75 MG, LIDOCAINE VISCOUS 2% 3... PO SCH ×18 (03:53→23:46)
[2021-08-02] MEDS: guaiFENesin-Coden 100-10MG/5ML 10 ML CUP PO SCH ×4 (03:53→21:06)
[2021-08-02] MEDS: HYDROcodone/APAP 15 ML SOLUTION PO SCH ×4 (03:53→21:06)
[2021-08-02] MEDS: SUCRALFATE 1 GM TAB PO SCH ×4 (03:54→23:45)
[2021-08-02] MEDS: glipiZIDE 5 MG TAB PO SCH ×2 (03:54→17:45)
[2021-08-02] MEDS: LORATADINE 10 MG TAB PO SCH (03:54)
[2021-08-02] MEDS: PANTOPRAZOLE 40 MG TABLET PO SCH ×2 (03:54→17:45)
[2021-08-02] MEDS: METOPROLOL SUCCINATE (ER) 50 MG TAB.ER.24H PO SCH ×3 (03:57→17:45)
[2021-08-02] MEDS: MORPHINE SULFATE 4 MG/ML SYRINGE IVP PRN (05:40)
[2021-08-02] MEDS: ARTIFICIAL TEARS-HYPROMELLOSE DROPS 15 ML BTL BOTH EYES SCH ×2 (05:43→17:45)
[2021-08-02] MEDS: FLUTICASONE 50MCG/SPRAY NASAL 16GM EA NOSTRIL SCH ×2 (05:43→17:45)
[2021-08-02 06:58] LABS: Glucose,Whole Blood 121 mg/dL (70-110)
[2021-08-02 07:49] LABS: Anisocytosis Slight; HCT 27.5 % (39.0-53.0); HGB 8.8 gm/dL (13.0-17.5); Hypochromasia Moderate; MCH 28.2 pg (25.0-35.0); MCHC 31.9 g/dL (31.0-37.0); MCV 88.3 fL (80.0-100.0); Mean Platelet Volume 7.4; Platelet Count 380 k/uL (150-450); Poikilocytosis Slight; RBC 3.11 m/uL (4.30-5.90); RDW 17.9 % (11.5-15.5); WBC 1.7 k/uL (3.8-10.6)
[2021-08-02 08:09] LABS: Magnesium 1.9 mg/dL (1.6-2.3); Potassium 3.6 mmol/L (3.5-5.1)
[2021-08-02] MEDS: IPRATROPIUM-ALBUTEROL 3 ML NEB INHALATION SCH ×4 (08:12→19:07)
[2021-08-02] MEDS: SYMBICORT 80-4.5 MCG INHALER INHALATION SCH ×2 (08:12→19:07)
[2021-08-02] MEDS: FUROSEMIDE 10 MG/ML 2 ML VIAL IV SCH ×3 (08:57→23:45)
[2021-08-02] MEDS: MAGNESIUM SULFATE-D5W PMX 1 GM in DEXTROSE/WATER 1 100ML.BAG IVPB SCH ×2 (09:04→10:44)
[2021-08-02 09:46] LABS: Band Neutrophils % 1 %; Basophils # (M) 0.03 k/uL (0-0.2); Lymphocytes # (M) 0.46 k/uL (1.0-4.8); Monocytes # (M) 0.26 k/uL (0-1.0); Neutrophils % (M) 55 %; Nucleated Red Blood Cells 0 /100 WBC (0-0); Total Cells Counted 100
[2021-08-02] MEDS: ONDANSETRON 4 MG TAB PO PRN (10:53)
[2021-08-02 11:09] LABS: Glucose,Whole Blood 139 mg/dL (70-110)
--- NOTE | 2021-08-02 11:27 | CDI ---
Documentation Clarification Form Date: 08/02/2021 11:07:52 AM From: Bhavana Beck CCS, CCDS Admit Date: 07/27/2021 10:31:00 PM Patient Name: Xiang Pimentel Visit Number: [id number] Discharge Date: ATTENTION: The Clinical Documentation Specialists (CDI) and [facility] Coding Staff appreciate your assistance in clarifying documentation. Please respond to the clarification below the line at the bottom and electronically sign. The CDI & [facility] Coding staff will review the response and follow-up if needed. Please note: Queries are made part of the Legal Health Record. If you have any questions, please contact the author of this message via ITS. Dr. Frantz Ybarra: Per the 07/28 History & Physical: Patient had congestion on CXR, ECHO ordered and Cardiology Consult requested to rule out Congestive Heart Failure. 07/28 Cardiology Consult: consulted for Pleural Effusion with worsening SOB. Impression: Left sided pleural effusion. Acute on chronic hypoxic respiratory failure. Metastatic adenocarcinoma of esophagus. History of recurrent right side pleural effusion sp Pleurx catheter 06/2021, COPD, DM II, Hypertension, Hyperlipidemia & BULMARO. Addendum: ECHO 04/2020: EF 55-60%, Mild LVH, Mild MR, Mild TR. Lexiscan stress test in 2019: Fixed defect involving the inferior segment was probably secondary to soft tissue attenuation, previous SD cannot be excluded. Additional information regarding the Type & Acuity of CHF is requested. History/Risk Factors per the 07/28 H/P: Esophageal Cancer, Chronic right side pleural effusion, Rt side Pleurx catheter place with positive fluid for metastatic adenocarcinoma. Hypertension, Hyperlipidemia, DM, BULMARO, Osteoarthritis, nonsmoker. Clinical Indicators: Presented to the ED on 07/27 with concern for recurrent pneumonia due to persistent coughing & worsening SOB. Pain with eating and drinking, had esophageal stent placed (esophageal cancer status post radiation, currently in chemotherapy. Concern for dehydration, failure to thrive & possible recurrent pneumonia. Admit with recurrent right pleural effusion, Esophageal cancer, Failure to thrive, Hypokalemia, Dysphagia, Dehydration. 07/27 VS: T 97.9, P 118, R 22 (sob), BP 129/78, PO 95 3Lnc, BMI: 35.1 07/27 LAB: PT 12.9, INR 1.2; Na 134, K 3.1, CO2 34, Creatinine 0.47, glucose 153, Calcium 7.5, Alk Phos 148, Total protein 4.9, Albumin 2.2. BNP not done. (06/26/21 BNP 204) 07/28 ECHO: Left ventricular EF est at 50-55%. Normal LV systolic function. Very large left & right pleural effusions. No previous ECHO. Treatment 07/27: O2 3Lnc, IV Na Chl 500 mls @ 1000 mls/hr q35M, IV Na Chl 1,000 mls @ 130 mls/hr q7H, INH Duoneb 6 ml x1, IV Morphine 2 - 4 mg x3. 07/28: INH Duoneb 3 ml TID/prn, INH Ventolin 2.5 mg q4H/prn, IV Lasix 20 mg q8H luis antonio, INH Symbicort 2 puffs BID In your professional opinion, can you please clarify the Acuity & Type of CHF if known? [ ] Acute Diastolic Heart Failure [ ] Chronic Diastolic Heart Failure [ ] Acute on Chronic Diastolic Heart Failure [ ] Heart Failure is ruled out [ ] Other, please specify [ ] Unable to determine (Template Last Revised: March 2020) MTDD
[2021-08-02] MEDS: POTASSIUM CHLORIDE 10 MEQ in WATER FOR INJECTION 1 100ML.BAG IVPB SCH ×2 (12:07→13:54)
--- NOTE | 2021-08-02 12:14 | P.PN ---
Subjective Progress Note Date: 08/02/21 Left pleural effusion, shortness of breath This is a very pleasant 70-year-old male patient with a history of hypertension, hyperlipidemia, diabetes mellitus, obstructive sleep apnea utilizing CPAP osteoa rthritis with multiple orthopedic surgeries, nonsmoker. The patient also has a history of esophageal cancer with previous stent placed in April 2021. 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 Most recently he had a right-sided Pleurx catheter placement on 06/17/2021 and fluid was positive for metastatic adenocarcinoma. He is currently on Keytruda. He had been having decreased amounts of pleural fluid that he had been draining at home. Less than 25-50 mL now. He presented here to the emergency room yesterday with complaints of increasing shortness of breath and is now found to have a large left-sided pleural effusion. Ultrasound of the left chest reveals a 12.5 cm pocket. I count 14.8. Hemoglobin 8.6. Platelets 349. INR 1.2. Sodium 134. Potassium 3.1. BUN 12. Creatinine 0.47. AST 20. ALT 10. Blood glucose 153. He is seen today in consultation in the emergency department. He's currently resting fairly comfortable on the stretcher. Awake and alert in no acute distress. He is maintaining O2 saturations in the 90s on 2 L/m per nasal cannula. He has 0.9% normal saline at 130 ML's per hour. He is dyspneic with exertion. He also states he is quite fatigued and weak today. The patient was seen in follow-up on 07/29/2021. He is currently sitting up at the bedside. Awake and alert in no acute distress. He is maintaining O2 saturations in the mid 90s on 4 L/m per nasal cannula. He's been afebrile. Hemodynamically stable. Chest x-ray had revealed bilateral pleural effusions left greater than right. He has a right-sided Pleurx catheter in place. He did undergo a left-sided thoracentesis today with 1.5 L of bloody fluid returned. Fluid analysis and cytology are pending. Follow-up chest x-ray revealed no evidence of pneumothorax. Blood culture reveals no growth. Urine culture pending. White count 7.5. Hemoglobin 8.0. Platelet count 265,000. Sodium 140. Potassium 3.0. BUN 10. Creatinine 0.5. Glucose 112. He remains on Symbicort, DuoNeb inhalations, antibiotics in the form of Levaquin. Lovenox for DVT prophylaxis. The patient is seen today 07/30/2021 in follow-up on the regular medical floor. He sitting up in bed. Awake and alert in no acute distress. Maintaining good O2 saturations in the 90s on room air. Slightly tachycardic. Afebrile. He did undergo a left-sided thoracentesis yesterday. Cytology pending. Fluid analysis was exudate with a total protein of 2.6 and LDH of 628. Grossly bloody. Cultures pending. Urine culture revealed no growth. Blood cultures reveal no growth. White count 4.4. Hemoglobin 7.2. Platelets 227. Glucose 151. He remains on DuoNeb inhalations, Symbicort, IV diuretics. He is on antibiotics in the form of Levaquin. The patient is seen today 07/31/2021 follow-up on the regular medical floor. He is awake and alert in no acute distress. He is resting in bed. He has ongoing loose cough, shortness of breath with exertion. Maintaining O2 saturations in the 90s on 4 L/m per nasal cannula. He is afebrile. Hemodynamically stable. Chest x-ray continues to show bilateral effusions left greater than right. Right-sided Pleurx catheter in place and drained today with only a small amount of fluid removed. Pleural fluid cultures pending and recent left-sided thorace ntesis. White count 4.2. Hemoglobin 7.6. Platelets 2:30. Sodium 142. Potassium 3.1. BUN 9. Creatinine 0.6. Glucose 121. He is continued on IV Lasix 20 mg every 8 hours, DuoNeb inhalations, Symbicort, antibiotics in the form of Levaquin. Lovenox for DVT prophylaxis. 08/01/2021, the patient is essentially the same. Output from the right-sided Pleurx catheter for minimal and the patient is postop thoracentesis on the left and a fluid cytology is pending from the left. The patient was supposed to undergo a PEG tube insertion today and discussed canceled and postponedand rescheduled as the patient's hemoglobin came down to 6.8 and the patient will be receiving unit of packed RBC. noted the patient is chronically anemic. The hemoglobin has been gradually droppingwithout any signs of an acute GI bleed.the patient as mentioned is going to receive units of packed RBC. The patient has no signs of any significant respiratory distress. The patient is known to have obstructive sleep apnea and the patient has a CPAP machine at the bedside which she is using on a regular basis.no significant respiratory distress. The most recent chest x-ray from yesterday showed CHF with some pleural effusions bilaterally and overall appearance of is stable. The patient has small effusions bilaterally. 08/02/2021, the patient remains a bit anxious. No significant worsening in his breathing. The patient is currently on oxygen at 4 L. His resting comfortably. He is still awaiting his PEG tube insertion. He received a unit of packed RBC yesterday and the hemoglobin stable at 8.8. The white cell count is down to 1.7. The potassium level is at 3.6 and the patient is a low potassium yesterday of 3.0 which is replaced as the patient is being diuresed with IV Lasix. He still has hypoproteinemia and hypoalbuminemia and the patient has third spacing edema lower extremity is bilaterally. Meanwhile, the patient has remained nothing by mouth. The pleural fluid analysis/cytology from the left is still pending. Rule out underlying malignancy. Objective - Vital Signs Vital signs: Vital Signs Temp 97.5 F L 08/02/21 11:39 Pulse 96 08/02/21 12:03 Resp 18 08/02/21 12:03 BP 107/52 08/02/21 11:39 Pulse Ox 97 08/02/21 11:39 FiO2 21 07/31/21 19:46 Intake & Output 08/01/21 08/02/21 08/02/21 18:59 06:59 18:59 Intake Total 310 0 Balance 310 0 Weight 125.645 kg 127.5 kg Intake: Oral 0 Blood Product 310 Rc As-1 Unit 310 [id number] Other: Voiding Method Bedside Commode Bedside Commode # Voids 3 - Exam GENERAL EXAM: Alert, 70-year-old gentleman, on 4 L nasal cannula, fairly comfortable in no apparent distress. HEAD: Normocephalic. EYES: Normal reaction of pupils, equal size. NOSE: Clear with pink turbinates. THROAT: No erythema or exudates. NECK: No masses, no JVD. CHEST: No chest wall deformity. Right-sided Mediport in place. Right-sided Pleurx catheter in place. LUNGS: Equal air entry with bibasilar crackles. Diminished in the left lung base. CVS: S1 and S2 normal with no audible murmur, regular rhythm. ABDOMEN: No hepatosplenomegaly, normal bowel sounds, no guarding or rigidity. SPINE: No scoliosis or deformity SKIN: No rashes CENTRAL NERVOUS SYSTEM: No focal deficits, tone is normal in all 4 extremities. EXTREMITIES: There is no peripheral edema. No clubbing, no cyanosis. Peripheral pulses are intact. - Labs CBC & Chem 7: 08/02/21 07:08 08/02/21 07:05 Labs: Abnormal Lab Results - Last 24 Hours (Table) 08/01/21 08/01/21 08/01/21 Range/Units 10:48 16:27 17:30 WBC 3.1 L (3.8-10.6) k/uL RBC 3.09 L (4.30-5.90) m/uL Hgb 8.6 L (13.0-17.5) gm/dL Hct 27.6 L (39.0-53.0) % RDW 17.5 H (11.5-15.5) % Neutrophils # (Manual) (1.3-7.7) k/uL Lymphocytes # (Manual) (1.0-4.8) k/uL POC Glucose (mg/dL) 149 H (70-110) mg/dL Crossmatch See Detail 08/01/21 08/02/21 08/02/21 Range/Units 19:33 06:57 07:08 WBC 1.7 L (3.8-10.6) k/uL RBC 3.11 L (4.30-5.90) m/uL Hgb 8.8 L (13.0-17.5) gm/dL Hct 27.5 L (39.0-53.0) % RDW 17.9 H (11.5-15.5) % Neutrophils # (Manual) 0.90 L (1.3-7.7) k/uL Lymphocytes # (Manual) 0.46 L (1.0-4.8) k/uL POC Glucose (mg/dL) 154 H 121 H (70-110) mg/dL Crossmatch 08/02/21 Range/Units 11:07 WBC (3.8-10.6) k/uL RBC (4.30-5.90) m/uL Hgb (13.0-17.5) gm/dL Hct (39.0-53.0) % RDW (11.5-15.5) % Neutrophils # (Manual) (1.3-7.7) k/uL Lymphocytes # (Manual) (1.0-4.8) k/uL POC Glucose (mg/dL) 139 H (70-110) mg/dL Crossmatch Microbiology - Last 24 Hours (Table) 07/27/21 21:45 Blood Culture - Preliminary Blood No Growth after 120 hours 07/27/21 21:30 Blood Culture - Preliminary Blood No Growth after 120 hours 07/29/21 08:15 Gram Stain - Preliminary Pleural Fluid Body Fluid Culture - Preliminary Assessment and Plan Plan: Acute on chronic hypoxic respiratory failure secondary to a moderate size left pleural effusion secondary to metastatic adenocarcinoma of the esophagus. Status post left-sided thoracentesis with 1.5 L of bloody fluid returned on 07/29/2021. Fluid analysis feels an exudate with a protein of 0.6 and LDH 628. Cytology pending.meanwhile, the patient is clinically stable. Output from the Pleurx catheter the minimal as mentioned. Overall respiratory status is stable and the patient is currently on oxygen at 4 L per minute nasal cannula. Metastatic adenocarcinoma of the esophagus, post systemic chemotherapy, currently on Keytruda and 5-FU. Awaiting PEG tube insertion Recurrent right-sided pleural effusion, status post Pleurx catheter placement on 06/17/2021 and attempted to drain 07/31/2021 with minimal output. Chronic dysphagia History of COPD Diabetes mellitus, type II Hypertension Hyperlipidemia Osteoarthritis Obstructive sleep apnea on CPAP History of anxiety chronic anemia, multifactorial, no evidence of any acute GI bleed, received a unit of packed RBC yesterday and the patient's hemoglobin is improved Hypoproteinemia and hypoalbuminemia Extensive lower extremity edema and the patient started on IV Lasix for third spacing Hypokalemia secondary to diuresis Leukopenia probably related to 5-FU/chemotherapy, Plan Monitor the white count. Replace potassium PEG tube insertion this afternoon Keep the patient nothing by mouth after midnight continue diuretics as the patient has significant third spacing monitor electrolytes Awaiting pleural fluid cytology Continue to follow
[2021-08-02] MEDS ORDERED: PROPOFOL 10 MG/ML 20 ML VIAL IV ONE (12:42)
[2021-08-02] MEDS ORDERED: LIDOCAINE 2% INJ 20 MG/ML (2 ML VIAL) ONE (12:42)
[2021-08-02] MEDS ORDERED: IV FLUID CONTINUATION 600 ML IV ONE (12:42)
--- NOTE | 2021-08-02 13:08 | P.OP ---
Date of Procedure: 08/02/21 Preoperative Diagnosis: Protein calorie malnutrition Postoperative Diagnosis: Routine calorie malnutrition Procedure(s) Performed: EGD with PEG tube placement Anesthesia: MAC Surgeon: Jesse Cole Pathology: none sent Condition: stable Disposition: PACU Description of Procedure: The patient received IV sedation. Next the gastroscope placed oropharynx passed in the esophagus and stomach. There is no evidence of any outlet obstruction. Stomach was insufflated with air. The light reflux seen the anterior abdominal wall. The abdomen was prepped and draped usual fashion. The skin was incised. And the needles placed and stomach under direct visualization. The needle was snared. And the wires placed through the needle and the wire was snared and brought the oropharynx. The PEG tube was placed over top the wire brought down to the stomach. The PEG tube was secured. At the 3 cm jerri. The one-piece bolster was used. Patient tolerated procedure well.
[2021-08-02] MEDS: ENOXAPARIN 40 MG/0.4 ML SYRINGE SQ SCH (13:57)
[2021-08-02] MEDS: LEVOFLOXACIN 500MG-D5W PMX 500 MG in DEXTROSE/WATER 1 100ML.BAG IVPB SCH (15:15)
--- NOTE | 2021-08-02 15:41 | P.PN ---
Subjective Progress Note Date: 08/02/21 Principal diagnosis: Hypoxia, odynophagia, met eso adenocarcinoma In f/u today pt had PEG tube placed. When he returned from procedure he was in a lot of pain as he did did not have his scheduled medication nor is he had any other pain medications for his esophageal spasms. Patient is very tearful, and daughter are at bedside. Objective - Vital Signs Vital signs: Vital Signs Temp 97.5 F L 08/02/21 11:39 Pulse 97 08/02/21 15:15 Resp 18 08/02/21 15:15 BP 107/52 08/02/21 11:39 Pulse Ox 97 08/02/21 11:39 FiO2 21 07/31/21 19:46 Intake & Output 08/01/21 08/02/21 08/02/21 18:59 06:59 18:59 Intake Total 310 0 100 Balance 310 0 100 Weight 125.645 kg 127.5 kg Intake: IV 100 Oral 0 Blood Product 310 Rc As-1 Unit 310 [id number] Other: Voiding Method Bedside Commode Bedside Commode # Voids 3 - Constitutional General appearance: Present: cooperative, morbidly obese, severe distress - EENT Eyes: Present: anicteric sclerae, EOMI ENT: Present: hearing grossly normal - Respiratory Respiratory: bilateral: CTA - Cardiovascular Rhythm: regular Heart sounds: normal: S1, S2 Abnormal Heart Sounds: Absent: systolic murmur, diastolic murmur, rub, S3 Gallop, S4 Gallop, click, other - Gastrointestinal General gastrointestinal: Present: decreased bowel sounds, soft - Integumentary Integumentary: Present: pale - Neurologic Neurologic: Present: CNII-XII intact - Musculoskeletal Musculoskeletal: Present: generalized weakness - Psychiatric Psychiatric: Present: A&O x's 3, appropriate affect, intact judgment & insight - Labs CBC & Chem 7: 08/02/21 07:08 08/02/21 07:05 Labs: Abnormal Lab Results - Last 24 Hours (Table) 08/01/21 08/01/21 08/01/21 Range/Units 16:27 17:30 19:33 WBC 3.1 L (3.8-10.6) k/uL RBC 3.09 L (4.30-5.90) m/uL Hgb 8.6 L (13.0-17.5) gm/dL Hct 27.6 L (39.0-53.0) % RDW 17.5 H (11.5-15.5) % Neutrophils # (Manual) (1.3-7.7) k/uL Lymphocytes # (Manual) (1.0-4.8) k/uL POC Glucose (mg/dL) 149 H 154 H (70-110) mg/dL 08/02/21 08/02/21 08/02/21 Range/Units 06:57 07:08 11:07 WBC 1.7 L (3.8-10.6) k/uL RBC 3.11 L (4.30-5.90) m/uL Hgb 8.8 L (13.0-17.5) gm/dL Hct 27.5 L (39.0-53.0) % RDW 17.9 H (11.5-15.5) % Neutrophils # (Manual) 0.90 L (1.3-7.7) k/uL Lymphocytes # (Manual) 0.46 L (1.0-4.8) k/uL POC Glucose (mg/dL) 121 H 139 H (70-110) mg/dL Microbiology - Last 24 Hours (Table) 07/29/21 08:15 Gram Stain - Final Pleural Fluid Body Fluid Culture - Final 07/27/21 21:45 Blood Culture - Preliminary Blood No Growth after 120 hours 07/27/21 21:30 Blood Culture - Preliminary Blood No Growth after 120 hours Assessment and Plan (1) Dysphagia Current Visit: Yes Status: Acute Priority: High Code(s): R13.10 - DYSPHAGIA, UNSPECIFIED SNOMED Code(s): 48457008 (2) Esophageal cancer Current Visit: Yes Status: Acute Priority: High Code(s): C15.9 - MALIGNANT NEOPLASM OF ESOPHAGUS, UNSPECIFIED SNOMED Code(s): 901398277 (3) Failure to thrive in adult Current Visit: Yes Status: Acute Priority: High Code(s): R62.7 - ADULT FAILURE TO THRIVE SNOMED Code(s): 839690192 (4) Pleural effusion, left Current Visit: Yes Status: Acute Priority: High Code(s): J90 - PLEURAL EFFUSION, NOT ELSEWHERE CLASSIFIED SNOMED Code(s): 53214524 Plan: Resp status improved after lt thoracentesis. Cytology pending. Lt supraclav LN is certainly enlarged, it is not fixed but it is hard, feels pathologic- enlarged from IO? Further recommendations to follow after cytology is available Odynophagia with eso spasm. Mary Kay has been inserted for nutritional supplementation. Working with current pain medications to find a combination works for patient. Unfortunately, the esophageal spasms are random, usually once they're over the pain subsides.
[2021-08-02 16:36] LABS: Glucose,Whole Blood 153 mg/dL (70-110)
--- NOTE | 2021-08-02 17:28 | P.PN ---
Subjective Progress Note Date: 08/02/21 Xiang Pimentel, 70-year-old male patient who presented to [facility] emergency room with a chief complaint of worsening shortness of breath patient has a known history of esophageal cancer, he has chronic right sided pleural effusion, he had a right-sided Pleurx catheter placement on 06/17/2021 and fluid was positive for metastatic adenocarcinoma. He was evaluated in the emergency room vital examination on presentation revealed a temperature of 97.9 pulse 118 respiration 22 blood pressure 129/78 pulse ox 95% on 3 L nasal cannula Laboratory data reveals a white blood count of 14.8 hemoglobin 8.6 platelet count 349 sodium 134 potassium 3.1 chloride 99 CO2 34 BUN 12 creatinine 0.47 Testing in the emergency room revealed chest x-ray done in the emergency room revealed evidence of congestive heart failure with pleural effusions, fluid increased on the left side compared to old exam Patient was admitted to medical floor for further evaluation and treatment cardiology and pulmonary consultation were requested Past medical history history of hypertension, hyperlipidemia, diabetes mellitus, obstructive sleep apnea utilizing CPAP osteoarthritis with multiple orthopedic surgeries, nonsmoker. The patient also has a history of esophageal cancer with previous stent placed in April 2021. 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 On 07/29/2021 patient's alert and oriented 3. Patient underwent arthrocentesis the same on the left side per Dr. Ling. Patient reports significant improvement with pain and breathing. Talks about possible feeding tube per patient and . At this time patient denies chest pain. Patient denies nausea vomiting or diarrhea. Patient denies any urinary burning or frequency. On 07/30/2021 patient was seen and examined on the medical floor, he is alert and oriented 3 in no apparent distress, he is complaining of shortness of breat h with any activity he is complaining of bilateral lower extremity swelling, pain is better controlled at this time, there is no fever or chills no headache or dizziness no chest pain no nausea or vomiting no abdominal pain no diarrhea and no urinary symptoms. Patient was seen by Dr. Cole this morning, he is scheduled for PEG tube feeding placement on Sunday, patient had multiple questions regarding the pros and cons of initiating tube feeding, this was discussed with him in details. On 07/31/2021 patient's alert and oriented 3. Patient having some increased shortness of breath chest x-ray has been ordered per pulmonary to assess if patient needs fluid draining from lungs. Patient is tentatively scheduled for PEG tube placement tomorrow per surgical services. At this time patient denies chest pain. Patient denies nausea vomiting or diarrhea. Patient denies any urinary burning or frequency On 08/01/2021 patient was seen and examined on the medical floor he is alert and oriented 3 in no apparent distress, hemoglobin was down to 6.8 this morning 1 unit of red blood cell transfusion was ordered, PEG tube placement was put on hold at this time, otherwise patient denies any complaint his pain is well controlled. On 08/02/2021 patient was seen and examined on the medical floor he is alert and oriented 3 in no distress, hemoglobin is up to 8.8 today, patient is scheduled for PEG tube placement today, this time he denies any complaints. Objective - Vital Signs Vital signs: Vital Signs Temp 97.5 F L 08/02/21 11:39 Pulse 96 08/02/21 12:03 Resp 18 08/02/21 12:03 BP 107/52 08/02/21 11:39 Pulse Ox 97 08/02/21 11:39 FiO2 21 07/31/21 19:46 Intake & Output 08/01/21 08/02/21 08/02/21 18:59 06:59 18:59 Intake Total 310 0 100 Balance 310 0 100 Weight 125.645 kg 127.5 kg Intake: IV 100 Oral 0 Blood Product 310 Rc As-1 Unit 310 [id number] Other: Voiding Method Bedside Commode Bedside Commode # Voids 3 - Exam In general patient is alert and oriented x 3 in no distress HEENT head normocephalic and atraumatic Neck is supple no JVD no goiter no lymphadenopathy no carotid bruit Chest examination reveals a scattered bilateral crackles no wheezing Cardiac exam reveals regular heart sounds S1 and S2 no gallops no murmurs Abdomen is soft nontender no organomegaly with normal bowel sounds Extremity exam reveals no edema no cyanosis or clubbing Neurological examination reveals no gross focal deficits - Labs CBC & Chem 7: 08/02/21 07:08 08/02/21 07:05 Labs: Abnormal Lab Results - Last 24 Hours (Table) 08/01/21 08/01/21 08/01/21 Range/Units 10:48 16:27 17:30 WBC 3.1 L (3.8-10.6) k/uL RBC 3.09 L (4.30-5.90) m/uL Hgb 8.6 L (13.0-17.5) gm/dL Hct 27.6 L (39.0-53.0) % RDW 17.5 H (11.5-15.5) % Neutrophils # (Manual) (1.3-7.7) k/uL Lymphocytes # (Manual) (1.0-4.8) k/uL POC Glucose (mg/dL) 149 H (70-110) mg/dL Crossmatch See Detail 08/01/21 08/02/21 08/02/21 Range/Units 19:33 06:57 07:08 WBC 1.7 L (3.8-10.6) k/uL RBC 3.11 L (4.30-5.90) m/uL Hgb 8.8 L (13.0-17.5) gm/dL Hct 27.5 L (39.0-53.0) % RDW 17.9 H (11.5-15.5) % Neutrophils # (Manual) 0.90 L (1.3-7.7) k/uL Lymphocytes # (Manual) 0.46 L (1.0-4.8) k/uL POC Glucose (mg/dL) 154 H 121 H (70-110) mg/dL Crossmatch 08/02/21 Range/Units 11:07 WBC (3.8-10.6) k/uL RBC (4.30-5.90) m/uL Hgb (13.0-17.5) gm/dL Hct (39.0-53.0) % RDW (11.5-15.5) % Neutrophils # (Manual) (1.3-7.7) k/uL Lymphocytes # (Manual) (1.0-4.8) k/uL POC Glucose (mg/dL) 139 H (70-110) mg/dL Crossmatch Microbiology - Last 24 Hours (Table) 07/29/21 08:15 Gram Stain - Final Pleural Fluid Body Fluid Culture - Final 07/27/21 21:45 Blood Culture - Preliminary Blood No Growth after 120 hours 07/27/21 21:30 Blood Culture - Preliminary Blood No Growth after 120 hours Assessment and Plan Plan: Esophageal cancer with metastatic disease Acute on chronic hypoxic respiratory failure, due to bilateral pleural effusions, patient also has congestion on chest x-ray, echocardiogram ordered and cardiology consultation requested to rule out congestive heart failure Recurrent right sided pleural effusion with recent Pleurx catheter placement one month ago Underlying history of hypertension Underlying history of diabetes mellitus type 2 Underlying history of hyperlipidemia Underlying history of obstructive sleep apnea maintained on CPAP Chronic pain related to esophageal cancer maintained on narcotics for pain management Underlying history of COPD At this time patient is admitted to medical floor Home medications reviewed and reordered Pulmonary and cardiology consultation was requested Status post thoracentesis on 07/29/2021 Tentative plans for PEG tube placement 08/01/2021 For DVT prophylaxis we will use Lovenox For GI prophylaxis continue Protonix Will follow closely
[2021-08-02 20:33] LABS: Glucose,Whole Blood 148 mg/dL (70-110)
[2021-08-02] MEDS: EZETIMIBE 10 MG TAB PO SCH (21:06)
[2021-08-02] MEDS: ATORVASTATIN 10 MG TAB PO SCH (21:07)
[2021-08-02] MEDS: METOCLOPRAMIDE 10 MG TAB PO SCH (21:07)
[2021-08-02] MEDS: OLANZapine 5 MG TAB PO SCH (21:07)
[2021-08-03] MEDS: ALBUTEROL NEBULIZED 2.5 MG/3 ML INHALATION PRN ×3 (01:09→23:23)
[2021-08-03] MEDS: HYDROmorphone 1 MG/ML 1 ML SYRINGE IVP PRN ×4 (02:46→22:47)
[2021-08-03] MEDS: diphenhydrAMINE 25 MG CAP PO SCH ×4 (04:16→20:59)
[2021-08-03] MEDS: HYDROcodone/APAP 15 ML SOLUTION PO SCH ×4 (04:16→20:59)
[2021-08-03] MEDS: MAG HYDROX/AL HYDROX/SIMETH 30 ML, diphenhydrAMINE ELIXIR 75 MG, LIDOCAINE VISCOUS 2% 3... PO SCH ×15 (04:16→20:58)
[2021-08-03] MEDS: guaiFENesin-Coden 100-10MG/5ML 10 ML CUP PO SCH ×4 (04:16→20:59)
[2021-08-03] MEDS: glipiZIDE 5 MG TAB PO SCH ×2 (05:47→19:19)
[2021-08-03] MEDS: LORATADINE 10 MG TAB PO SCH (05:47)
[2021-08-03] MEDS: ALPRAZolam 0.25 MG TAB PO SCH ×3 (05:47→19:19)
[2021-08-03] MEDS: METOPROLOL SUCCINATE (ER) 50 MG TAB.ER.24H PO SCH ×2 (05:47→19:19)
[2021-08-03] MEDS: SUCRALFATE 1 GM TAB PO SCH ×3 (05:47→19:18)
[2021-08-03] MEDS: ARTIFICIAL TEARS-HYPROMELLOSE DROPS 15 ML BTL BOTH EYES SCH ×2 (05:47→19:19)
[2021-08-03] MEDS: FLUTICASONE 50MCG/SPRAY NASAL 16GM EA NOSTRIL SCH ×2 (05:47→19:18)
[2021-08-03] MEDS: PANTOPRAZOLE 40 MG TABLET PO SCH ×2 (05:47→19:19)
[2021-08-03 06:55] LABS: Glucose,Whole Blood 100 mg/dL (70-110)
[2021-08-03] MEDS: SYMBICORT 80-4.5 MCG INHALER INHALATION SCH ×2 (08:03→20:17)
[2021-08-03] MEDS: IPRATROPIUM-ALBUTEROL 3 ML NEB INHALATION SCH ×4 (08:31→20:17)
[2021-08-03] MEDS: FUROSEMIDE 10 MG/ML 2 ML VIAL IV SCH ×2 (08:45→16:08)
[2021-08-03] MEDS: METOCLOPRAMIDE 10 MG TAB PO SCH ×2 (08:45→20:58)
[2021-08-03] MEDS: ENOXAPARIN 40 MG/0.4 ML SYRINGE SQ SCH (08:45)
[2021-08-03] MEDS: DICYCLOMINE 10 MG CAP PO SCH ×3 (08:45→20:59)
[2021-08-03 09:22] LABS: Potassium 3.5 mmol/L (3.5-5.5)
[2021-08-03] MEDS ORDERED: Potassium Replacement Protocol 1 EACH MISC MISCELLANE PRN (10:40)
[2021-08-03] MEDS: LEVOFLOXACIN 500MG-D5W PMX 500 MG in DEXTROSE/WATER 1 100ML.BAG IVPB SCH (10:53)
[2021-08-03 11:10] LABS: Glucose,Whole Blood 146 mg/dL (70-110)
--- NOTE | 2021-08-03 11:24 | P.PN ---
Subjective Progress Note Date: 08/03/21 Left pleural effusion, shortness of breath This is a very pleasant 70-year-old male patient with a history of hypertension, hyperlipidemia, diabetes mellitus, obstructive sleep apnea utilizing CPAP osteoa rthritis with multiple orthopedic surgeries, nonsmoker. The patient also has a history of esophageal cancer with previous stent placed in April 2021. 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 Most recently he had a right-sided Pleurx catheter placement on 06/17/2021 and fluid was positive for metastatic adenocarcinoma. He is currently on Keytruda. He had been having decreased amounts of pleural fluid that he had been draining at home. Less than 25-50 mL now. He presented here to the emergency room yesterday with complaints of increasing shortness of breath and is now found to have a large left-sided pleural effusion. Ultrasound of the left chest reveals a 12.5 cm pocket. I count 14.8. Hemoglobin 8.6. Platelets 349. INR 1.2. Sodium 134. Potassium 3.1. BUN 12. Creatinine 0.47. AST 20. ALT 10. Blood glucose 153. He is seen today in consultation in the emergency department. He's currently resting fairly comfortable on the stretcher. Awake and alert in no acute distress. He is maintaining O2 saturations in the 90s on 2 L/m per nasal cannula. He has 0.9% normal saline at 130 ML's per hour. He is dyspneic with exertion. He also states he is quite fatigued and weak today. The patient was seen in follow-up on 07/29/2021. He is currently sitting up at the bedside. Awake and alert in no acute distress. He is maintaining O2 saturations in the mid 90s on 4 L/m per nasal cannula. He's been afebrile. Hemodynamically stable. Chest x-ray had revealed bilateral pleural effusions left greater than right. He has a right-sided Pleurx catheter in place. He did undergo a left-sided thoracentesis today with 1.5 L of bloody fluid returned. Fluid analysis and cytology are pending. Follow-up chest x-ray revealed no evidence of pneumothorax. Blood culture reveals no growth. Urine culture pending. White count 7.5. Hemoglobin 8.0. Platelet count 265,000. Sodium 140. Potassium 3.0. BUN 10. Creatinine 0.5. Glucose 112. He remains on Symbicort, DuoNeb inhalations, antibiotics in the form of Levaquin. Lovenox for DVT prophylaxis. The patient is seen today 07/30/2021 in follow-up on the regular medical floor. He sitting up in bed. Awake and alert in no acute distress. Maintaining good O2 saturations in the 90s on room air. Slightly tachycardic. Afebrile. He did undergo a left-sided thoracentesis yesterday. Cytology pending. Fluid analysis was exudate with a total protein of 2.6 and LDH of 628. Grossly bloody. Cultures pending. Urine culture revealed no growth. Blood cultures reveal no growth. White count 4.4. Hemoglobin 7.2. Platelets 227. Glucose 151. He remains on DuoNeb inhalations, Symbicort, IV diuretics. He is on antibiotics in the form of Levaquin. The patient is seen today 07/31/2021 follow-up on the regular medical floor. He is awake and alert in no acute distress. He is resting in bed. He has ongoing loose cough, shortness of breath with exertion. Maintaining O2 saturations in the 90s on 4 L/m per nasal cannula. He is afebrile. Hemodynamically stable. Chest x-ray continues to show bilateral effusions left greater than right. Right-sided Pleurx catheter in place and drained today with only a small amount of fluid removed. Pleural fluid cultures pending and recent left-sided thorace ntesis. White count 4.2. Hemoglobin 7.6. Platelets 2:30. Sodium 142. Potassium 3.1. BUN 9. Creatinine 0.6. Glucose 121. He is continued on IV Lasix 20 mg every 8 hours, DuoNeb inhalations, Symbicort, antibiotics in the form of Levaquin. Lovenox for DVT prophylaxis. 08/01/2021, the patient is essentially the same. Output from the right-sided Pleurx catheter for minimal and the patient is postop thoracentesis on the left and a fluid cytology is pending from the left. The patient was supposed to undergo a PEG tube insertion today and discussed canceled and postponedand rescheduled as the patient's hemoglobin came down to 6.8 and the patient will be receiving unit of packed RBC. noted the patient is chronically anemic. The hemoglobin has been gradually droppingwithout any signs of an acute GI bleed.the patient as mentioned is going to receive units of packed RBC. The patient has no signs of any significant respiratory distress. The patient is known to have obstructive sleep apnea and the patient has a CPAP machine at the bedside which she is using on a regular basis.no significant respiratory distress. The most recent chest x-ray from yesterday showed CHF with some pleural effusions bilaterally and overall appearance of is stable. The patient has small effusions bilaterally. 08/02/2021, the patient remains a bit anxious. No significant worsening in his breathing. The patient is currently on oxygen at 4 L. His resting comfortably. He is still awaiting his PEG tube insertion. He received a unit of packed RBC yesterday and the hemoglobin stable at 8.8. The white cell count is down to 1.7. The potassium level is at 3.6 and the patient is a low potassium yesterday of 3.0 which is replaced as the patient is being diuresed with IV Lasix. He still has hypoproteinemia and hypoalbuminemia and the patient has third spacing edema lower extremity is bilaterally. Meanwhile, the patient has remained nothing by mouth. The pleural fluid analysis/cytology from the left is still pending. Rule out underlying malignancy. 08/03/2021, I'm seeing this patient for a follow-up. He did have some hallucinations overnight. This morning, he seems to be more appropriate. Underwent a PEG tube insertion yesterday and the procedure was successful and PEG tube feeding is to follow today. Meanwhile, the patient has a right-sided Pleurx catheter. The left-sided thoracentesis was completed and the fluid unfortunately do not to be positive for malignancy this is with adenocarcinoma by esophageal primary. The patient otherwise is doing well on oxygen and he is currently on 4 L with a pulse ox of 90% and it goes up to 98%. His blood work from today is still pending. There was a concern of hypokalemia as the patient's is losing potassium as being diuresed for extensive fluid overload. His albumin is also low. He is currently on Lasix and he is on 20 mg every 8 hours. He still has edema in lower extremity is bilaterally. His potassium is being replaced accordingly. The patient is on 40 mg of Lovenox for DVT prophylaxis. He is on Levaquin as an empiric antibiotic coverage. He remains on Symbicort, DuoNeb nebulized treatments around the clock. Family is at the bedside. Objective - Vital Signs Vital signs: Vital Signs Temp 99.3 F 08/03/21 04:43 Pulse 111 H 08/03/21 08:27 Resp 18 08/03/21 04:43 BP 142/74 08/03/21 04:43 Pulse Ox 90 L 08/03/21 08:05 FiO2 21 07/31/21 19:46 Intake & Output 08/02/21 08/03/21 08/03/21 18:59 06:59 18:59 Intake Total 100 120 Balance 100 120 Weight 124 kg Intake: IV 100 Oral 120 Other: Voiding Method Bedside Commode - Exam GENERAL EXAM: Alert, 70-year-old gentleman, on 4 L nasal cannula, fairly comfortable in no apparent distress. HEAD: Normocephalic. EYES: Normal reaction of pupils, equal size. NOSE: Clear with pink turbinates. THROAT: No erythema or exudates. NECK: No masses, no JVD. CHEST: No chest wall deformity. Right-sided Mediport in place. Right-sided Pleurx catheter in place. LUNGS: Equal air entry with bibasilar crackles. Diminished in the left lung base. CVS: S1 and S2 normal with no audible murmur, regular rhythm. ABDOMEN: No hepatosplenomegaly, normal bowel sounds, no guarding or rigidity. The PEG tube site is dry clean and intact SPINE: No scoliosis or deformity SKIN: No rashes CENTRAL NERVOUS SYSTEM: No focal deficits, tone is normal in all 4 extremities. EXTREMITIES: There is no peripheral edema. No clubbing, no cyanosis. Peripheral pulses are intact. - Labs CBC & Chem 7: 08/02/21 07:08 08/03/21 05:17 Labs: Abnormal Lab Results - Last 24 Hours (Table) 08/02/21 08/02/21 08/03/21 Range/Units 16:34 20:31 11:08 POC Glucose (mg/dL) 153 H 148 H 146 H (70-110) mg/dL Microbiology - Last 24 Hours (Table) 07/27/21 21:45 Blood Culture - Final Blood No Growth after 144 hours 07/27/21 21:30 Blood Culture - Final Blood No Growth after 144 hours 07/29/21 08:15 Gram Stain - Final Pleural Fluid Body Fluid Culture - Final Assessment and Plan Plan: Acute on chronic hypoxic respiratory failure secondary to a moderate size left pleural effusion secondary to metastatic adenocarcinoma of the esophagus. Status post left-sided thoracentesis with 1.5 L of bloody fluid returned on 07/29/2021. Unfortunately, the fluid cytology was also positive and the patient has bilateral malignant pleural effusions consistent with metastatic adenocarcinoma. Currently on 4 L of oxygen by nasal cannula. Metastatic adenocarcinoma of the esophagus, post systemic chemotherapy, currently on Keytruda and 5-FU. Recurrent right-sided pleural effusion, status post Pleurx catheter placement on 06/17/2021 and attempted to drain 07/31/2021 with minimal output. Chronic dysphagia, The patient completed a PEG tube insertion and enteral feeding to be started today History of COPD Diabetes mellitus, type II Hypertension Hyperlipidemia Osteoarthritis Obstructive sleep apnea on CPAP History of anxiety chronic anemia, multifactorial, no evidence of any acute GI bleed, received a unit of packed RBC yesterday and the patient's hemoglobin is improved Hypoproteinemia and hypoalbuminemia Extensive lower extremity edema and the patient started on IV Lasix for third spacing Hypokalemia secondary to diuresis Leukopenia probably related to 5-FU/chemotherapy, Plan Monitor the white count. Repeat CBC and electrolytes Replace potassium PEG tube insertion was done yesterday without any complications and the patient will be started on enteral feeding for nutritional support Replace potassium monitor electrolytes pleural fluid cytology was also positive. No need for Pleurx catheter insertion on the left for now. We'll may need to repeat a chest x-ray with next 2 days to assess progression of the left-sided pleural effusion Prognosis poor and will continue to follow.
[2021-08-03] MEDS: POTASSIUM CHLORIDE 10 MEQ in WATER FOR INJECTION 1 100ML.BAG IVPB SCH ×4 (12:14→16:08)
[2021-08-03 13:16] LABS: Anisocytosis Slight; Basophils % (A) 2 %; Eosinophils % (A) 1 %; HCT 27.8 % (39.0-53.0); HGB 8.5 gm/dL (13.0-17.5); Hypochromasia Marked; Lymphocytes # (A) 0.5 k/uL (1.0-4.8); Lymphocytes % (A) 25 %; MCH 27.7 pg (25.0-35.0); MCHC 30.6 g/dL (31.0-37.0); MCV 90.3 fL (80.0-100.0); Mean Platelet Volume 8.7; Monocytes # (A) 0.4 k/uL (0-1.0); Monocytes % (A) 20 %; Neutrophils # (A) 0.9 k/uL (1.3-7.7); Neutrophils % (A) 46 %; Platelet Count 482 k/uL (150-450); Poikilocytosis Slight; RBC 3.08 m/uL (4.30-5.90); RDW 17.8 % (11.5-15.5)
--- NOTE | 2021-08-03 14:51 | P.PN ---
Subjective Progress Note Date: 08/03/21 CHIEF COMPLAINT: Esophageal cancer HISTORY OF PRESENT ILLNESS: Patient is status post PEG tube placement. Patient had hallucinations and confusion overnight. His fluid cytology from thoracentesis was positive and compatible with patient's known metastatic esophageal adenocarcinoma. Afebrile WBC 2.0 Hgb 8.5 platelets 482 Patient seen and examined with Dr. Cole PHYSICAL EXAM: VITAL SIGNS: Reviewed. GENERAL: Well-developed in no acute distress. HEENT: No sclera icterus. Extraocular movements grossly intact. Moist buccal mucosa. Head is atraumatic, normocephalic. ABDOMEN: Soft. Nondistended. Nontender. PEG tube site clean dry and intact NEUROLOGIC: Confused ASSESSMENT: 1. Esophageal cancer 2. Dysphagia 3. Bilateral pleural effusions 4. Moderate protein Malnutrition 5. Hypokalemia PLAN: -Okay to start tube feedings -Consult dietitian for tube feeding recommendations -Continue supportive care Physician Lifestyle Consultant note has been reviewed by physician. Signing provider agrees with the documented findings, assessment, and plan of care. Objective - Vital Signs Vital signs: Vital Signs Temp 98.7 F 08/03/21 11:26 Pulse 99 08/03/21 11:47 Resp 14 08/03/21 11:26 BP 106/68 08/03/21 11:26 Pulse Ox 95 08/03/21 11:26 FiO2 21 07/31/21 19:46 Intake & Output 08/02/21 08/03/21 08/03/21 18:59 06:59 18:59 Intake Total 100 120 Balance 100 120 Weight 124 kg Intake: IV 100 Oral 120 Other: Voiding Method Bedside Commode Diaper Incontinent - Labs CBC & Chem 7: 08/03/21 05:17 08/03/21 05:17 Labs: Abnormal Lab Results - Last 24 Hours (Table) 08/02/21 08/02/21 08/03/21 Range/Units 16:34 20:31 05:17 WBC 2.0 L (3.8-10.6) k/uL RBC 3.08 L (4.30-5.90) m/uL Hgb 8.5 L (13.0-17.5) gm/dL Hct 27.8 L (39.0-53.0) % MCHC 30.6 L (31.0-37.0) g/dL RDW 17.8 H (11.5-15.5) % Plt Count 482 H (150-450) k/uL POC Glucose (mg/dL) 153 H 148 H (70-110) mg/dL 08/03/21 Range/Units 11:08 WBC (3.8-10.6) k/uL RBC (4.30-5.90) m/uL Hgb (13.0-17.5) gm/dL Hct (39.0-53.0) % MCHC (31.0-37.0) g/dL RDW (11.5-15.5) % Plt Count (150-450) k/uL POC Glucose (mg/dL) 146 H (70-110) mg/dL Microbiology - Last 24 Hours (Table) 07/27/21 21:45 Blood Culture - Final Blood No Growth after 144 hours 07/27/21 21:30 Blood Culture - Final Blood No Growth after 144 hours 07/29/21 08:15 Gram Stain - Final Pleural Fluid Body Fluid Culture - Final
[2021-08-03 15:14] LABS: Lymphocytes # (M) 0.54 k/uL (1.0-4.8); Monocytes # (M) 0.48 k/uL (0-1.0); Neutrophils # (M) 0.98 k/uL (1.3-7.7); Neutrophils % (M) 49 %; Nucleated Red Blood Cells 0 /100 WBC (0-0); Polychromasia Present; Rouleaux Present; Stomatocytes Present; Total Cells Counted 100
--- NOTE | 2021-08-03 15:49 | P.PN ---
Subjective Progress Note Date: 08/03/21 Principal diagnosis: Hypoxia, odynophagia, met eso adenocarcinoma In f/u today pt cont to have intermittent eso spasms, very painful, he is using ATC and PRN narcotics, some relief when he takes. Pt family reports "rough night", confusion, hallucinations. Slow to respond to questions today. Objective - Vital Signs Vital signs: Vital Signs Temp 98.7 F 08/03/21 11:26 Pulse 99 08/03/21 11:47 Resp 14 08/03/21 11:26 BP 106/68 08/03/21 11:26 Pulse Ox 95 08/03/21 11:26 FiO2 21 07/31/21 19:46 Intake & Output 08/02/21 08/03/21 08/03/21 18:59 06:59 18:59 Intake Total 100 120 Balance 100 120 Weight 124 kg Intake: IV 100 Oral 120 Other: Voiding Method Bedside Commode Diaper Incontinent - Constitutional General appearance: Present: cooperative, mild distress, morbidly obese - EENT Eyes: Present: anicteric sclerae, EOMI ENT: Present: hearing grossly normal - Neurologic Neurologic: Present: CNII-XII intact - Musculoskeletal Musculoskeletal: Present: generalized weakness - Psychiatric Psychiatric: Present: A&O x's 3, appropriate affect - Labs CBC & Chem 7: 08/03/21 05:17 08/03/21 05:17 Labs: Abnormal Lab Results - Last 24 Hours (Table) 08/02/21 08/02/21 08/03/21 Range/Units 16:34 20:31 05:17 WBC 2.0 L (3.8-10.6) k/uL RBC 3.08 L (4.30-5.90) m/uL Hgb 8.5 L (13.0-17.5) gm/dL Hct 27.8 L (39.0-53.0) % MCHC 30.6 L (31.0-37.0) g/dL RDW 17.8 H (11.5-15.5) % Plt Count 482 H (150-450) k/uL Neutrophils # 0.9 L (1.3-7.7) k/uL Neutrophils # (Manual) 0.98 L (1.3-7.7) k/uL Lymphocytes # 0.5 L (1.0-4.8) k/uL Lymphocytes # (Manual) 0.54 L (1.0-4.8) k/uL POC Glucose (mg/dL) 153 H 148 H (70-110) mg/dL 08/03/21 Range/Units 11:08 WBC (3.8-10.6) k/uL RBC (4.30-5.90) m/uL Hgb (13.0-17.5) gm/dL Hct (39.0-53.0) % MCHC (31.0-37.0) g/dL RDW (11.5-15.5) % Plt Count (150-450) k/uL Neutrophils # (1.3-7.7) k/uL Neutrophils # (Manual) (1.3-7.7) k/uL Lymphocytes # (1.0-4.8) k/uL Lymphocytes # (Manual) (1.0-4.8) k/uL POC Glucose (mg/dL) 146 H (70-110) mg/dL Microbiology - Last 24 Hours (Table) 07/27/21 21:45 Blood Culture - Final Blood No Growth after 144 hours 07/27/21 21:30 Blood Culture - Final Blood No Growth after 144 hours 07/29/21 08:15 Gram Stain - Final Pleural Fluid Body Fluid Culture - Final Assessment and Plan (1) Dysphagia Current Visit: Yes Status: Acute Priority: High Code(s): R13.10 - DYSPHAGIA, UNSPECIFIED SNOMED Code(s): 83538074 (2) Esophageal cancer Current Visit: Yes Status: Acute Priority: High Code(s): C15.9 - MALIGNANT NEOPLASM OF ESOPHAGUS, UNSPECIFIED SNOMED Code(s): 127144877 (3) Failure to thrive in adult Current Visit: Yes Status: Acute Priority: High Code(s): R62.7 - ADULT FAILURE TO THRIVE SNOMED Code(s): 856464071 (4) Pleural effusion, left Current Visit: Yes Status: Acute Priority: High Code(s): J90 - PLEURAL EFFUSION, NOT ELSEWHERE CLASSIFIED SNOMED Code(s): 66319257 Plan: Resp status improved after lt thoracentesis. Cytology resulted, c/w eso adenocarcinoma. Dr. Louis discussed disease progression on treatment is concerning for aggressive disease. CT CAP to restage since progression is new since most recent CT scan, just 1 mo ago. Odynophagia with eso spasm. Peg has been inserted for nutritional supplementation. Working with current pain medications and adjusting antispasmodics to find a combination that provides hopefully decreased frequency and severity of symptoms. F/U Dr. Umaña in 2 weeks. Attests: I have seen and examined pt, performed H&P, developed impression and plan of care. Discussed with dictator, agree with dictation, documented as a scribe
[2021-08-03 16:52] LABS: Glucose,Whole Blood 127 mg/dL (70-110)
[2021-08-03] MEDS ORDERED: DICYCLOMINE 10 MG CAP PO SCH (18:00)
[2021-08-03 20:44] LABS: Glucose,Whole Blood 124 mg/dL (70-110)
[2021-08-03] MEDS: OLANZapine 5 MG TAB PO SCH (20:58)
[2021-08-03] MEDS: ATORVASTATIN 10 MG TAB PO SCH (20:59)
[2021-08-03] MEDS: EZETIMIBE 10 MG TAB PO SCH (20:59)
[2021-08-04] MEDS: SUCRALFATE 1 GM TAB PO SCH ×4 (00:50→16:11)
[2021-08-04] MEDS: MAG HYDROX/AL HYDROX/SIMETH 30 ML, diphenhydrAMINE ELIXIR 75 MG, LIDOCAINE VISCOUS 2% 3... PO SCH ×18 (00:50→21:18)
[2021-08-04] MEDS: FUROSEMIDE 10 MG/ML 2 ML VIAL IV SCH ×3 (00:50→16:12)
[2021-08-04] MEDS: HYDROmorphone 1 MG/ML 1 ML SYRINGE IVP PRN ×2 (03:16→14:07)
[2021-08-04] MEDS: HYDROcodone/APAP 15 ML SOLUTION PO SCH ×4 (04:20→21:18)
[2021-08-04] MEDS: diphenhydrAMINE 25 MG CAP PO SCH ×2 (04:20→11:03)
[2021-08-04] MEDS: FLUTICASONE 50MCG/SPRAY NASAL 16GM EA NOSTRIL SCH ×2 (05:20→17:29)
[2021-08-04] MEDS: ARTIFICIAL TEARS-HYPROMELLOSE DROPS 15 ML BTL BOTH EYES SCH ×2 (05:20→16:13)
[2021-08-04] MEDS: METOPROLOL SUCCINATE (ER) 50 MG TAB.ER.24H PO SCH ×2 (05:21→16:11)
[2021-08-04] MEDS: glipiZIDE 5 MG TAB PO SCH ×2 (05:21→16:11)
[2021-08-04] MEDS: ALPRAZolam 0.25 MG TAB PO SCH ×3 (05:21→16:11)
[2021-08-04] MEDS: LORATADINE 10 MG TAB PO SCH (05:21)
[2021-08-04] MEDS: PANTOPRAZOLE 40 MG TABLET PO SCH ×2 (05:21→16:11)
[2021-08-04] MEDS: guaiFENesin-Coden 100-10MG/5ML 10 ML CUP PO SCH ×4 (05:21→21:18)
[2021-08-04 07:00] LABS: Glucose,Whole Blood 117 mg/dL (70-110)
[2021-08-04] MEDS: SYMBICORT 80-4.5 MCG INHALER INHALATION SCH ×2 (07:09→19:08)
[2021-08-04] MEDS: IPRATROPIUM-ALBUTEROL 3 ML NEB INHALATION SCH ×4 (07:09→19:08)
[2021-08-04] MEDS: ENOXAPARIN 40 MG/0.4 ML SYRINGE SQ SCH (08:35)
[2021-08-04] MEDS: METOCLOPRAMIDE 10 MG TAB PO SCH ×2 (08:36→22:12)
[2021-08-04] MEDS: DICYCLOMINE 10 MG CAP PO SCH ×3 (08:36→21:18)
--- NOTE | 2021-08-04 09:44 | CDI ---
Documentation Clarification Form Date: 08/04/2021 09:28:11 AM From: Bhavana Beck CCS, CCDS Admit Date: 07/27/2021 10:31:00 PM Patient Name: Xiang Pimentel Visit Number: [id number] Discharge Date: ATTENTION: The Clinical Documentation Specialists (CDI) and [facility] Coding Staff appreciate your assistance in clarifying documentation. Please respond to the clarification below the line at the bottom and electronically sign. The CDI & [facility] Coding staff will review the response and follow-up if needed. Please note: Queries are made part of the Legal Health Record. If you have any questions, please contact the author of this message via ITS. Dr. Michell Soriano: Chronic Anemia is documented throughout the chart in the Progress Notes beginning on 08/01. Per the 07/27 ED Note: Labs with worsening anemia is documented. Additional specificity regarding the Type & Acuity of Anemia is requested. History/Risk Factors per the 07/28 H/P: Esophageal Cancer status post Radiation, Chronic Right Side Pleural Effusion, Pleurx Catheter placed on 06/17/2021 with positive fluid for Metastatic Adenocarcinoma. Asthma, COPD, DM, GERD, Hypertension, Hyperlipidemia, BULMARO (uses CPAP), Osteoarthritis, Anxiety. Clinical indicators: Presented to the ED on 07/27 with SOB and Pneumonia, sent by Oncologist. Patient is currently in chemotherapy for Esophageal Cancer. Persistent coughing, pain with eating or drinking. Concern for dehydration, failure to thrive and possible recurrent pneumonia. Admit with Recurrent Right Pleural Effusion, Esophageal Cancer, Failure to Thrive in Adult, Hypokalemia, Dysphagia, Dehydration. Hemoglobin 07/27: 8.6. 07/28: 8.9. 07/29: 8.0. 07/30: 7.2. 07/31: 7.6. 08/01: 6.8, 8.6. 08/02: 8.8. 08/03: 8.5 Hematocrit 07/27: 27.7. 07/28: 28.1. 07/29: 26.7. 07/30: 24.0. /: 25.2. 08/01: 22.9, 27.6. 08/02: 27.5. 08/03: 27.8 Treatment 07/27: O2 2Lnc, IV Na Chl 500 mls @ 1,000 mls/hr q35M, IV Na Chl 1,000 mls @ 130 mls/hr q7H, INH Duoneb 6 ml x1, IV Morphine Suflate 2 mg x1. Daily CBC. Please clarify the Type & Acuity of Anemia: [ xxx ] Acute blood loss anemia [ ] Acute on chronic blood loss anemia [ ] Chronic blood loss anemia, please specify cause if known: [ ] Iron deficiency anemia [ ] Hemolytic anemia [ ] Drug induced anemia [ ] Anemia due to malignancy [ ] Nutritional Anemia [ ] Anemia of chronic disease, please specify: [ ] Unable to determine [ ] Other, please specify (Template Last Revised: March 2020) MTDD
[2021-08-04 10:31] LABS: Basophils # (A) 0.02 X 10*3/uL (0.00-0.10); Basophils % (A) 0.6 %; Eosinophils # (A) 0.02 X 10*3/uL (0.04-0.35); Eosinophils % (A) 0.6 %; HCT 27.4 % (39.6-50.0); HGB 8.1 g/dL (13.0-17.0); Immature Grans, Automated 2.3 %; Lymphocytes # (A) 0.58 X 10*3/uL (0.90-5.00); Lymphocytes % (A) 18.8 %; MCH 26.4 pg (27.0-32.0); MCHC 29.6 g/dL (32.0-37.0); MCV 89.3 fL (80.0-97.0); Mean Platelet Volume 9.2 fL (9.5-12.2); Monocytes # (A) 1.13 X 10*3/uL (0.20-1.00); Monocytes % (A) 36.7 %; NRBC Per 100 WBC 0 /100 WBCS (0.0-0.0); Neutrophils # (A) 1.26 X 10*3/uL (1.80-7.70); Platelet Count 536 X 10*3/uL (140-440); RBC 3.07 X 10*6/uL (4.40-5.60); RDW 18.1 % (11.5-14.5); WBC 3.08 X 10*3/uL (4.50-10.00)
[2021-08-04 10:51] LABS: African American GFR (CKD) 118.1 (60.0-200.0); Albumin/Globulin Ratio 0.77 (1.60-3.17); Anion Gap 6.6 mmol/L (10.00-18.00); BUN/Creat Ratio 14.41 Ratio (12.00-20.00); Blood Urea Nitrogen 8.8 mg/dL (9.0-27.0); Calcium 7.9 mg/dL (8.7-10.3); Carbon Dioxide 32.2 mmol/L (20.0-27.5); Globulin 2.6 g/dL (1.6-3.3); Non-African American GFR(CKD) 101.9 (60.0-200.0); Potassium 3.6 mmol/L (3.5-5.5); Total Bilirubin 0.3 mg/dL (0.30-1.20); Total Protein 4.5 g/dL (6.2-8.2)
[2021-08-04] MEDS: IOPAMIDOL CONTRAST (ORAL USE) VIAL PO PRN ×2 (11:25→12:38)
[2021-08-04] MEDS: LEVOFLOXACIN 500MG-D5W PMX 500 MG in DEXTROSE/WATER 1 100ML.BAG IVPB SCH (11:26)
[2021-08-04 11:39] LABS: Glucose,Whole Blood 142 mg/dL (70-110)
[2021-08-04 11:54] LABS: African American GFR (CKD) 117.4 (60.0-200.0); Albumin 2.1 g/dL (3.8-4.9); Albumin/Globulin Ratio 0.8 (1.60-3.17); Anion Gap 11.3 mmol/L (10.00-18.00); BUN/Creat Ratio 14.26 Ratio (12.00-20.00); Blood Urea Nitrogen 8.8 mg/dL (9.0-27.0); Calcium 7.9 mg/dL (8.7-10.3); Carbon Dioxide 28.2 mmol/L (20.0-27.5); Globulin 2.6 g/dL (1.6-3.3); Non-African American GFR(CKD) 101.3 (60.0-200.0); Total Bilirubin 0.3 mg/dL (0.30-1.20); Total Protein 4.7 g/dL (6.2-8.2)
[2021-08-04] MEDS: POTASSIUM CHLORIDE 10 MEQ in WATER FOR INJECTION 1 100ML.BAG IVPB SCH ×2 (14:08→16:12)
--- NOTE | 2021-08-04 14:51 | P.PN ---
Subjective Progress Note Date: 08/04/21 CHIEF COMPLAINT: Esophageal cancer HISTORY OF PRESENT ILLNESS: Patient is status post PEG tube placement. He is still having confusion. He has multiple areas of pain. He had been tolerating the tube feedings. Tube feeds are on hold for his computed tomography scan of the chest abdomen and pelvis which oncology is ordered for staging purposes of this cancer. Computed tomography scan of the brain was ordered to check for metastasis. Afebrile. Tachycardic. WBC 3.08, hgb 8.1 Patient seen and examined with Dr. Cole PHYSICAL EXAM: VITAL SIGNS: Reviewed. GENERAL: Well-developed in no acute distress. HEENT: No sclera icterus. Extraocular movements grossly intact. Moist buccal mucosa. Head is atraumatic, normocephalic. ABDOMEN: Soft. Nondistended. Mild tenderness at peg tube site. PEG tube site clean dry and intact NEUROLOGIC: Confused ASSESSMENT: 1. Esophageal cancer 2. Dysphagia 3. Bilateral pleural effusions 4. Moderate protein Malnutrition 5. Hypokalemia PLAN: -Titrate to feedings per dietitian recommendation -Continue supportive care Physician Yarn Comber note has been reviewed by physician. Signing provider agrees with the documented findings, assessment, and plan of care. Objective - Vital Signs Vital signs: Vital Signs Temp 98 F 08/04/21 11:35 Pulse 111 H 08/04/21 11:35 Resp 20 08/04/21 11:35 BP 130/72 08/04/21 11:35 Pulse Ox 92 L 08/04/21 11:35 FiO2 36 08/03/21 23:37 Intake & Output 08/03/21 08/04/21 08/04/21 18:59 06:59 18:59 Output Total 450 700 Balance -450 -700 Output: Urine 450 700 Other: Voiding Method Diaper Indwelling Catheter Incontinent - Labs CBC & Chem 7: 08/04/21 07:03 08/04/21 07:03 Labs: Abnormal Lab Results - Last 24 Hours (Table) 08/03/21 08/03/21 08/03/21 Range/Units 05:17 05:17 16:50 WBC (4.50-10.00) X 10*3/uL RBC (4.40-5.60) X 10*6/uL Hgb (13.0-17.0) g/dL Hct (39.6-50.0) % MCH (27.0-32.0) pg MCHC (32.0-37.0) g/dL RDW (11.5-14.5) % Plt Count (140-440) X 10*3/uL MPV (9.5-12.2) fL Immature Gran # (0.00-0.04) X 10*3/uL Neutrophils # 0.9 L (1.3-7.7) k/uL Neutrophils # (Manual) 0.98 L (1.3-7.7) k/uL Lymphocytes # 0.5 L (1.0-4.8) k/uL Lymphocytes # (Manual) 0.54 L (1.0-4.8) k/uL Monocytes # (0.20-1.00) X 10*3/uL Eosinophils # (0.04-0.35) X 10*3/uL Carbon Dioxide 28.2 H (20.0-27.5) mmol/L Anion Gap (10.00-18.00) mmol/L BUN 8.8 L (9.0-27.0) mg/dL POC Glucose (mg/dL) 127 H (70-110) mg/dL Calcium 7.9 L (8.7-10.3) mg/dL Alkaline Phosphatase 137 H (41-126) U/L Total Protein 4.7 L (6.2-8.2) g/dL Albumin 2.1 L (3.8-4.9) g/dL Albumin/Globulin Ratio 0.80 L (1.60-3.17) g/dL 08/03/21 08/04/21 08/04/21 Range/Units 20:42 06:59 07:03 WBC 3.08 L (4.50-10.00) X 10*3/uL RBC 3.07 L (4.40-5.60) X 10*6/uL Hgb 8.1 L (13.0-17.0) g/dL Hct 27.4 L (39.6-50.0) % MCH 26.4 L (27.0-32.0) pg MCHC 29.6 L (32.0-37.0) g/dL RDW 18.1 H (11.5-14.5) % Plt Count 536 H (140-440) X 10*3/uL MPV 9.2 L (9.5-12.2) fL Immature Gran # 0.07 H (0.00-0.04) X 10*3/uL Neutrophils # 1.26 L (1.3-7.7) k/uL Neutrophils # (Manual) (1.3-7.7) k/uL Lymphocytes # 0.58 L (1.0-4.8) k/uL Lymphocytes # (Manual) (1.0-4.8) k/uL Monocytes # 1.13 H (0.20-1.00) X 10*3/uL Eosinophils # 0.02 L (0.04-0.35) X 10*3/uL Carbon Dioxide (20.0-27.5) mmol/L Anion Gap (10.00-18.00) mmol/L BUN (9.0-27.0) mg/dL POC Glucose (mg/dL) 124 H 117 H (70-110) mg/dL Calcium (8.7-10.3) mg/dL Alkaline Phosphatase (41-126) U/L Total Protein (6.2-8.2) g/dL Albumin (3.8-4.9) g/dL Albumin/Globulin Ratio (1.60-3.17) g/dL 08/04/21 08/04/21 Range/Units 07:03 11:38 WBC (4.50-10.00) X 10*3/uL RBC (4.40-5.60) X 10*6/uL Hgb (13.0-17.0) g/dL Hct (39.6-50.0) % MCH (27.0-32.0) pg MCHC (32.0-37.0) g/dL RDW (11.5-14.5) % Plt Count (140-440) X 10*3/uL MPV (9.5-12.2) fL Immature Gran # (0.00-0.04) X 10*3/uL Neutrophils # (1.3-7.7) k/uL Neutrophils # (Manual) (1.3-7.7) k/uL Lymphocytes # (1.0-4.8) k/uL Lymphocytes # (Manual) (1.0-4.8) k/uL Monocytes # (0.20-1.00) X 10*3/uL Eosinophils # (0.04-0.35) X 10*3/uL Carbon Dioxide 32.2 H (20.0-27.5) mmol/L Anion Gap 6.60 L (10.00-18.00) mmol/L BUN 8.8 L (9.0-27.0) mg/dL POC Glucose (mg/dL) 142 H (70-110) mg/dL Calcium 7.9 L (8.7-10.3) mg/dL Alkaline Phosphatase 143 H (41-126) U/L Total Protein 4.5 L (6.2-8.2) g/dL Albumin 2.0 L (3.8-4.9) g/dL Albumin/Globulin Ratio 0.77 L (1.60-3.17) g/dL
--- NOTE | 2021-08-04 14:52 | CT ---
EXAMINATION TYPE: CT brain wo con DATE OF EXAM: 08/04/2021 COMPARISON: CT dated 03/23/2021 HISTORY: Observe for mets CT DLP: 1056.30 mGycm Automated exposure control for dose reduction was used. TECHNIQUE: CT scan of the brain is performed without IV contrast administration. FINDINGS: Scattered arterial atherosclerotic calcifications. No acute intracranial hemorrhage. No gross acute c ortical infarct. No midline shift, herniation or ventriculomegaly. Unremarkable godinez-white matter differentiation, basal cisterns, sella and CP angles. No gross space-o ccupying lesion, vasogenic edema or mass effect. Unremarkable orbits. Clear visualized paranasal sinuses and mastoid air cells. No aggressive bone les ion. IMPRESSION: No acute intracranial abnormality or gross intracranial metastatic disease by this nonenhanced CT sca n.
--- NOTE | 2021-08-04 15:35 | P.CONS ---
History of Present Illness - Reason for Consult Consult date: 08/04/21 Goals of care Requesting physician: Jasmin Jones - Chief Complaint shortness of breath - History of Present Illness This is a very pleasant 70-year-old male patient with a history of hypertension, hyperlipidemia, diabetes mellitus, obstructive sleep apnea utilizing CPAP osteoarthritis with multiple orthopedic surgeries, nonsmoker. The patient also has a history of esophageal cancer with previous stent placed in April 2021. 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 Most recently he had a right-sided Pleurx catheter placement on 06/17/2021 and fluid was positive for metastatic adenocarcinoma. He presented here to the emergency room on 07/27/21 with complaints of increasing shortness of breath and is now found to have a large left-sided pleural effusion. Patient was admitted to medical floor for further evaluation and treatment cardiology and pulmonary consultation. On 07/29/2021 patient's alert and oriented 3. Patient underwent a thoracentesis on the left side per Dr. Ling with 1.5 L bloody fluid drained. Patient reports significant improvement with pain and breathing. On 08/01/2021 the patient's hemoglobin was down to 6.8 and 1 unit of red blood cells were transfused. PEG tube placement was put on hold. On 08/02/21 The patient had a PEG tube placed by Dr. Cole. 08/03/21 The patient had some hallucinations overnight. In the morning he was more appropriate. Underwent a PEG tube insertion yesterday and the procedure was successful and PEG tube feeding is to follow today. Review of Systems All systems: negative Past Medical History Past Medical History: Asthma, Cancer, COPD, Diabetes Mellitus, GERD/Reflux, Hyperlipidemia, Hypertension, Osteoarthritis (OA), Sleep Apnea/CPAP/BIPAP Additional Past Medical History / Comment(s): uses CPAP, occ. 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) History of Any Multi-Drug Resistant Organisms: None Reported Past Surgical History: Hernia Repair, Joint Replacement, Orthopedic Surgery Additional Past Surgical History / Comment(s): cystoscopy, both knees replaced, multiple arthroscopies knees, colonoscopies, dental implant, right hip replaced, stent in esophabus 02/03/21, port rt side inserted 03/2021, esophageal stent placed and port inserted 04/26/21 Past Anesthesia/Blood Transfusion Reactions: Previous Problems w/ Anesthesia, Family History of Problems w/ Anesthesia, Motion Sickness Additional Past Anesthesia/Blood Transfusion Reaction / Comm: very combative when waking up from general anesthesia, anxious & agitated w/IV sedation,. mother ponv Past Psychological History: Anxiety Additional Psychological History / Comment(s): Pt resides with his spouse. He uses a cane to ambulate and has access to a walker and wheelchair if needed. Spouse drives and manages pt's medications. No home care at this time. Smoking Status: Never smoker Past Alcohol Use History: None Reported Past Drug Use History: None Reported - Past Family History Father Brother(s) Family Medical History: Cancer, Deep Vein Thrombosis (DVT) Additional Family Medical History / Comment(s): colon cancer Mother Family Medical History: Cancer Additional Family Medical History / Comment(s): . Father Family Medical History: Cancer Additional Family Medical History / Comment(s): Small intestine cancer with mets Brother(s) Family Medical History: Cancer Sister(s) Family Medical History: Cancer Medications and Allergies Home Medications Medication Instructions Recorded Confirmed Type ALPRAZolam [Xanax] 0.25 mg PO TID@0600,1200,1800 01/28/16 07/28/21 History Optive Eye Drops 1 drop BOTH EYES BID@0600,1800 01/28/16 07/28/21 History Fluticasone Propion/Salmeterol 1 puff INHALATION RT-BID@0600,1800 10/01/19 07/28/21 History [Advair 100-50 Diskus] Meloxicam [Mobic] 7.5 mg PO DAILY@1800 10/01/19 07/28/21 History glipiZIDE [Glucotrol] 5 mg PO BID@0600,1800 10/01/19 07/28/21 History Albuterol Sulfate [Ventolin HFA] 2 puff INHALATION RT-Q4H PRN 02/01/21 07/28/21 History Ezetimibe [Zetia] 10 mg PO HS@2200 02/01/21 07/28/21 History Fluticasone Nasal Story [Flonase 1 spray EA NOSTRIL BID@0600,1800 02/01/21 07/28/21 History Nasal Story] Omeprazole [PriLOSEC] 20 mg PO BID@0600,1800 02/01/21 07/28/21 History Simvastatin [Zocor] 20 mg PO HS@2200 03/01/21 07/28/21 History Dicyclomine [Bentyl] 10 mg PO DAILY@0800 04/25/21 07/28/21 History Ondansetron [Zofran ODT] 8 mg PO Q12HR PRN 04/25/21 07/28/21 History Sucralfate 1 gm PO Q6H 04/25/21 07/28/21 History guaiFENesin-Coden 100-10MG/5ML 10 ml PO Q6H 04/25/21 07/28/21 History [Robitussin AC] Ibuprofen 200 mg PO Q4H 05/06/21 07/28/21 History diphenhydrAMINE [Benadryl] 25 mg PO Q6H 05/06/21 07/28/21 History Folfax Regimen 1 dose IV Q14D 06/15/21 07/28/21 History HYDROcodone/APAP [Clifton Elixir 15 ml PO Q6H 06/15/21 07/28/21 History 7.5-325Mg/15Ml] INSULIN ASPART (NovoLOG) [NovoLOG See Protocol SQ ACHS 06/15/21 07/28/21 History (formulary)] Kools Solution 5 ml PO Q4H 06/15/21 07/28/21 History Lidocaine-Prilocaine Cream [Emla 1 applic TOPICAL DIRECTED 06/15/21 07/28/21 History Cream 2.5%/2.5%] Loratadine 10 mg PO DAILY@0600 06/15/21 07/28/21 History Mesalamine [Canasa] 1,000 mg RECTAL HS PRN 06/15/21 07/28/21 History Metoprolol Succinate (ER) [Toprol 50 mg PO BID@0600,1800 06/15/21 07/28/21 History XL] OLANZapine [ZyPREXA] 5 mg PO DAILY@2000 06/15/21 07/28/21 History Pembrolizumab [Keytruda] 200 mg IV Q21D 06/15/21 07/28/21 History fentaNYL 25MCG/HR PATCH [Duragesic 1 patch TRANSDERM Q3D@0800 06/15/21 07/28/21 History 25MCG/HR] Metoclopramide [Reglan] 10 mg PO BID 07/28/21 07/28/21 History Allergies Allergy/AdvReac Type Severity Reaction Status Date / Time cefazolin [From Kefzol] Allergy Rash/Hives Verified 07/28/21 07:41 Penicillins Allergy Rash/Hives Verified 07/28/21 07:41 Sulfa (Sulfonamide Allergy Rash/Hives Verified 07/28/21 07:41 Antibiotics) enalaprilat [From Vasotec] AdvReac Cough Verified 07/28/21 07:41 prochlorperazine AdvReac facial Verified 07/28/21 07:41 [From Compazine] twitching, loss of sensation of mouth Physical Exam Vitals: Vital Signs Temp Pulse Pulse Resp BP Pulse Ox FiO2 08/04/21 11:35 98 F 111 H 20 130/72 92 L 08/04/21 07:22 104 H 08/04/21 07:09 102 H 96 08/04/21 04:38 97.7 F 97 20 108/64 92 L 08/03/21 23:37 104 H 36 08/03/21 23:23 100 08/03/21 21:00 97.6 F 104 H 20 104/65 95 08/03/21 20:32 102 H 08/03/21 20:17 100 08/03/21 15:52 104 H 08/03/21 15:42 102 H Intake and Output 08/03/21 08/04/21 08/04/21 22:59 06:59 14:59 Output Total 450 Balance -450 Output: Urine 450 Other: Voiding Method Indwelling Catheter General: Patient lethargic and appears older than stated age. No acute distress. HEENT: Head is atraumatic, normocephalic Sclerae are clear. Pupils equal, round and reactive to light bilaterally. CV: Heart regular rhythm, + tachycardic. positive S1 and S2. No clicks, rubs or murmurs. Peripheral pulses equal. 2/4 Lungs: Diminished, crackles to bilateral bases. No wheezes rales or rhonchi. Respirations even and slightly labored. No intercostal retractions. On 3L NC Abdomen/GI: Soft. Bowel sounds present in all 4 quadrants. Bowel sounds normoactive. No abdominal tenderness. Peg site clean and dry. : Whalen catheter in place Musculoskeletal/ Extremities: + generalized weakness Vascular: Radial pulses equal. 2/4. 2+ bilateral LE edema Skin: Warm and dry. No rash. Neurologic: + confusion, No focal deficits, CN II-XII grossly intact Psychiatric: Flat affect Results CBC & Chem 7: 08/04/21 07:03 08/04/21 07:03 Labs: Abnormal Lab Results - Last 24 Hours (Table) 08/03/21 08/03/21 08/03/21 Range/Units 05:17 05:17 16:50 WBC (4.50-10.00) X 10*3/uL RBC (4.40-5.60) X 10*6/uL Hgb (13.0-17.0) g/dL Hct (39.6-50.0) % MCH (27.0-32.0) pg MCHC (32.0-37.0) g/dL RDW (11.5-14.5) % Plt Count (140-440) X 10*3/uL MPV (9.5-12.2) fL Immature Gran # (0.00-0.04) X 10*3/uL Neutrophils # 0.9 L (1.3-7.7) k/uL Neutrophils # (Manual) 0.98 L (1.3-7.7) k/uL Lymphocytes # 0.5 L (1.0-4.8) k/uL Lymphocytes # (Manual) 0.54 L (1.0-4.8) k/uL Monocytes # (0.20-1.00) X 10*3/uL Eosinophils # (0.04-0.35) X 10*3/uL Carbon Dioxide 28.2 H (20.0-27.5) mmol/L Anion Gap (10.00-18.00) mmol/L BUN 8.8 L (9.0-27.0) mg/dL POC Glucose (mg/dL) 127 H (70-110) mg/dL Calcium 7.9 L (8.7-10.3) mg/dL Alkaline Phosphatase 137 H (41-126) U/L Total Protein 4.7 L (6.2-8.2) g/dL Albumin 2.1 L (3.8-4.9) g/dL Albumin/Globulin Ratio 0.80 L (1.60-3.17) g/dL 08/03/21 08/04/21 08/04/21 Range/Units 20:42 06:59 07:03 WBC 3.08 L (4.50-10.00) X 10*3/uL RBC 3.07 L (4.40-5.60) X 10*6/uL Hgb 8.1 L (13.0-17.0) g/dL Hct 27.4 L (39.6-50.0) % MCH 26.4 L (27.0-32.0) pg MCHC 29.6 L (32.0-37.0) g/dL RDW 18.1 H (11.5-14.5) % Plt Count 536 H (140-440) X 10*3/uL MPV 9.2 L (9.5-12.2) fL Immature Gran # 0.07 H (0.00-0.04) X 10*3/uL Neutrophils # 1.26 L (1.3-7.7) k/uL Neutrophils # (Manual) (1.3-7.7) k/uL Lymphocytes # 0.58 L (1.0-4.8) k/uL Lymphocytes # (Manual) (1.0-4.8) k/uL Monocytes # 1.13 H (0.20-1.00) X 10*3/uL Eosinophils # 0.02 L (0.04-0.35) X 10*3/uL Carbon Dioxide (20.0-27.5) mmol/L Anion Gap (10.00-18.00) mmol/L BUN (9.0-27.0) mg/dL POC Glucose (mg/dL) 124 H 117 H (70-110) mg/dL Calcium (8.7-10.3) mg/dL Alkaline Phosphatase (41-126) U/L Total Protein (6.2-8.2) g/dL Albumin (3.8-4.9) g/dL Albumin/Globulin Ratio (1.60-3.17) g/dL 08/04/21 08/04/21 Range/Units 07:03 11:38 WBC (4.50-10.00) X 10*3/uL RBC (4.40-5.60) X 10*6/uL Hgb (13.0-17.0) g/dL Hct (39.6-50.0) % MCH (27.0-32.0) pg MCHC (32.0-37.0) g/dL RDW (11.5-14.5) % Plt Count (140-440) X 10*3/uL MPV (9.5-12.2) fL Immature Gran # (0.00-0.04) X 10*3/uL Neutrophils # (1.3-7.7) k/uL Neutrophils # (Manual) (1.3-7.7) k/uL Lymphocytes # (1.0-4.8) k/uL Lymphocytes # (Manual) (1.0-4.8) k/uL Monocytes # (0.20-1.00) X 10*3/uL Eosinophils # (0.04-0.35) X 10*3/uL Carbon Dioxide 32.2 H (20.0-27.5) mmol/L Anion Gap 6.60 L (10.00-18.00) mmol/L BUN 8.8 L (9.0-27.0) mg/dL POC Glucose (mg/dL) 142 H (70-110) mg/dL Calcium 7.9 L (8.7-10.3) mg/dL Alkaline Phosphatase 143 H (41-126) U/L Total Protein 4.5 L (6.2-8.2) g/dL Albumin 2.0 L (3.8-4.9) g/dL Albumin/Globulin Ratio 0.77 L (1.60-3.17) g/dL Chest x-ray: report reviewed Assessment and Plan Assessment: Reason for consult - Goals of care Social * Occupation - Retired RN, 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 No Functional Assessment * Able to walk independently - No, there has been a gradual decline * Assistive devices - Walker and wheelchair * Able to use the bathroom independently - No * Continent - Yes * Require assistance bathing- Yes * Able to feed self - Yes * Who prepares meals - * How many meals a day eaten - 1-2 * What percentage of meals eaten daily - varies due to pain with swallowing * Able to clean house/do laundry - No * Transportation - Patient does not drive, provides transportation * Able to shop - No * Who manages medications - * Who manages finances - PPS score - 60% Psychological/Emotional * Dementia present - Yes * Insight and judgment - No * Depression - Yes * Suicidal thoughts - No * Good support system - Yes, family * Patients goals - prolonged survival, optimize functionality, or comfort * Frequent hospitalizations - Yes, recently * Desire to keep coming back to the hospital for treatment - Yes Symptoms * Pain - 2/10 to esophagus and lower back. States pain is well controlled on current regimen. Continue Clifton, Fentanyl patch, and Dilaudid * Fatigue - Chronic weakness and fatigue getting progressively worse * SOB - Mild at rest, worse with activity, unable to tolerate lying flat. Continue 3-4L NC, symbicort, duoneb, albuterol, lasix, * Insomnia - No * N/V - Intermittent nausea, continue Zofran and Reglan * Anxiety - Yes, continue Xanax * Depression - Yes - mild * Confusion - Yes, continue Zyprexa, ? polyphamacy discontinue Benadryl * Agitation - Yes * Hallucinations - Yes * Appetite/weight loss - unable to eat much due to pain in esophagus, peg tube placed. Continue ground diet and tube feedings. Nutrition following * Dysphagia - Yes * Constipation - LBM 07/30 per EMR. Add Senokot-S * Incontinence - No, whalen catheter * Itch - no Plan: Summary/Goals - Met with the patient's , daughter, and son-in-law. Palliative care philosophies and services explained. The patient is confused and restless. He does state that his pain is controlled. The patient is scheduled for an abdominal/pelvis and head CT. Oncology did discussed disease progression on treatment is concerning for aggressive disease. Awaiting results to determine a treatment plan moving forward. The family has indicated that they are still interested in aggressive treatment. They are not ready to give up or discuss hospice. They are hoping to take the patient home. The did voice a concern that he may be too much for her to handle. Advanced Directives - No, information provided Code Status - Full code. Thank you for this consult Camille Negrete [facility] Palliative Care Spectralink [id number] Email: [email or web address] Time with Patient: Greater than 30
--- NOTE | 2021-08-04 15:37 | P.PN ---
Subjective Progress Note Date: 08/04/21 Left pleural effusion, shortness of breath This is a very pleasant 70-year-old male patient with a history of hypertension, hyperlipidemia, diabetes mellitus, obstructive sleep apnea utilizing CPAP osteoa rthritis with multiple orthopedic surgeries, nonsmoker. The patient also has a history of esophageal cancer with previous stent placed in April 2021. 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 Most recently he had a right-sided Pleurx catheter placement on 06/17/2021 and fluid was positive for metastatic adenocarcinoma. He is currently on Keytruda. He had been having decreased amounts of pleural fluid that he had been draining at home. Less than 25-50 mL now. He presented here to the emergency room yesterday with complaints of increasing shortness of breath and is now found to have a large left-sided pleural effusion. Ultrasound of the left chest reveals a 12.5 cm pocket. I count 14.8. Hemoglobin 8.6. Platelets 349. INR 1.2. Sodium 134. Potassium 3.1. BUN 12. Creatinine 0.47. AST 20. ALT 10. Blood glucose 153. He is seen today in consultation in the emergency department. He's currently resting fairly comfortable on the stretcher. Awake and alert in no acute distress. He is maintaining O2 saturations in the 90s on 2 L/m per nasal cannula. He has 0.9% normal saline at 130 ML's per hour. He is dyspneic with exertion. He also states he is quite fatigued and weak today. The patient was seen in follow-up on 07/29/2021. He is currently sitting up at the bedside. Awake and alert in no acute distress. He is maintaining O2 saturations in the mid 90s on 4 L/m per nasal cannula. He's been afebrile. Hemodynamically stable. Chest x-ray had revealed bilateral pleural effusions left greater than right. He has a right-sided Pleurx catheter in place. He did undergo a left-sided thoracentesis today with 1.5 L of bloody fluid returned. Fluid analysis and cytology are pending. Follow-up chest x-ray revealed no evidence of pneumothorax. Blood culture reveals no growth. Urine culture pending. White count 7.5. Hemoglobin 8.0. Platelet count 265,000. Sodium 140. Potassium 3.0. BUN 10. Creatinine 0.5. Glucose 112. He remains on Symbicort, DuoNeb inhalations, antibiotics in the form of Levaquin. Lovenox for DVT prophylaxis. The patient is seen today 07/30/2021 in follow-up on the regular medical floor. He sitting up in bed. Awake and alert in no acute distress. Maintaining good O2 saturations in the 90s on room air. Slightly tachycardic. Afebrile. He did undergo a left-sided thoracentesis yesterday. Cytology pending. Fluid analysis was exudate with a total protein of 2.6 and LDH of 628. Grossly bloody. Cultures pending. Urine culture revealed no growth. Blood cultures reveal no growth. White count 4.4. Hemoglobin 7.2. Platelets 227. Glucose 151. He remains on DuoNeb inhalations, Symbicort, IV diuretics. He is on antibiotics in the form of Levaquin. The patient is seen today 07/31/2021 follow-up on the regular medical floor. He is awake and alert in no acute distress. He is resting in bed. He has ongoing loose cough, shortness of breath with exertion. Maintaining O2 saturations in the 90s on 4 L/m per nasal cannula. He is afebrile. Hemodynamically stable. Chest x-ray continues to show bilateral effusions left greater than right. Right-sided Pleurx catheter in place and drained today with only a small amount of fluid removed. Pleural fluid cultures pending and recent left-sided thorace ntesis. White count 4.2. Hemoglobin 7.6. Platelets 2:30. Sodium 142. Potassium 3.1. BUN 9. Creatinine 0.6. Glucose 121. He is continued on IV Lasix 20 mg every 8 hours, DuoNeb inhalations, Symbicort, antibiotics in the form of Levaquin. Lovenox for DVT prophylaxis. 08/01/2021, the patient is essentially the same. Output from the right-sided Pleurx catheter for minimal and the patient is postop thoracentesis on the left and a fluid cytology is pending from the left. The patient was supposed to undergo a PEG tube insertion today and discussed canceled and postponedand rescheduled as the patient's hemoglobin came down to 6.8 and the patient will be receiving unit of packed RBC. noted the patient is chronically anemic. The hemoglobin has been gradually droppingwithout any signs of an acute GI bleed.the patient as mentioned is going to receive units of packed RBC. The patient has no signs of any significant respiratory distress. The patient is known to have obstructive sleep apnea and the patient has a CPAP machine at the bedside which she is using on a regular basis.no significant respiratory distress. The most recent chest x-ray from yesterday showed CHF with some pleural effusions bilaterally and overall appearance of is stable. The patient has small effusions bilaterally. 08/02/2021, the patient remains a bit anxious. No significant worsening in his breathing. The patient is currently on oxygen at 4 L. His resting comfortably. He is still awaiting his PEG tube insertion. He received a unit of packed RBC yesterday and the hemoglobin stable at 8.8. The white cell count is down to 1.7. The potassium level is at 3.6 and the patient is a low potassium yesterday of 3.0 which is replaced as the patient is being diuresed with IV Lasix. He still has hypoproteinemia and hypoalbuminemia and the patient has third spacing edema lower extremity is bilaterally. Meanwhile, the patient has remained nothing by mouth. The pleural fluid analysis/cytology from the left is still pending. Rule out underlying malignancy. 08/03/2021, I'm seeing this patient for a follow-up. He did have some hallucinations overnight. This morning, he seems to be more appropriate. Underwent a PEG tube insertion yesterday and the procedure was successful and PEG tube feeding is to follow today. Meanwhile, the patient has a right-sided Pleurx catheter. The left-sided thoracentesis was completed and the fluid unfortunately do not to be positive for malignancy this is with adenocarcinoma by esophageal primary. The patient otherwise is doing well on oxygen and he is currently on 4 L with a pulse ox of 90% and it goes up to 98%. His blood work from today is still pending. There was a concern of hypokalemia as the patient's is losing potassium as being diuresed for extensive fluid overload. His albumin is also low. He is currently on Lasix and he is on 20 mg every 8 hours. He still has edema in lower extremity is bilaterally. His potassium is being replaced accordingly. The patient is on 40 mg of Lovenox for DVT prophylaxis. He is on Levaquin as an empiric antibiotic coverage. He remains on Symbicort, DuoNeb nebulized treatments around the clock. Family is at the bedside. 08/04/2021, patient is being seen for a follow-up. The patient was started on enteral feeding for nutritional support. Nevertheless, on today's evaluation, the patient was found to be confused and he was also found to be slightly restless and agitated andhe was having some hallucinations. No worsening his respiratory status. The patient's white cell count of 3.0 with hemoglobin 8.1 and a platelet count of 536. Sodium is at 138, based on all this,a CAT scan of the brain was done that showed no acute abnormalities. No evidence of any PBX OPERATOR metastases. CAT scan of the chest abdomen and pelvis is also to be repeated as requested by hematology oncology.hematology oncology. Meanwhile, the patient is on 4 L of O2 nasal cannula. Currently around 94%.he has been started on enteral feeding for nutritional support. He remains on Lasix IV 20 mg every 8 hours. He is also on Lovenox 40 mg subcu for DVT prophylaxis. He has adequate pain control and the patient is receiving fentanyl patch for pain control. Objective - Vital Signs Vital signs: Vital Signs Temp 98 F 08/04/21 11:35 Pulse 108 H 08/04/21 15:27 Resp 20 08/04/21 11:35 BP 130/72 08/04/21 11:35 Pulse Ox 94 L 08/04/21 15:08 FiO2 36 08/03/21 23:37 Intake & Output 08/03/21 08/04/21 08/04/21 18:59 06:59 18:59 Output Total 450 700 Balance -450 -700 Output: Urine 450 700 Other: Voiding Method Diaper Indwelling Catheter Incontinent - Exam GENERAL EXAM: Alert, 70-year-old gentleman, on 4 L nasal cannula, fairly comfortable in no apparent distress. HEAD: Normocephalic. EYES: Normal reaction of pupils, equal size. NOSE: Clear with pink turbinates. THROAT: No erythema or exudates. NECK: No masses, no JVD. CHEST: No chest wall deformity. Right-sided Mediport in place. Right-sided Pleurx catheter in place. LUNGS: Equal air entry with bibasilar crackles. Diminished in the left lung base. CVS: S1 and S2 normal with no audible murmur, regular rhythm. ABDOMEN: No hepatosplenomegaly, normal bowel sounds, no guarding or rigidity. The PEG tube site is dry clean and intact SPINE: No scoliosis or deformity SKIN: No rashes CENTRAL NERVOUS SYSTEM: No focal deficits, tone is normal in all 4 extremities. EXTREMITIES: There is no peripheral edema. No clubbing, no cyanosis. Peripheral pulses are intact. - Labs CBC & Chem 7: 08/04/21 07:03 08/04/21 07:03 Labs: Abnormal Lab Results - Last 24 Hours (Table) 08/03/21 08/03/21 08/03/21 Range/Units 05:17 16:50 20:42 WBC (4.50-10.00) X 10*3/uL RBC (4.40-5.60) X 10*6/uL Hgb (13.0-17.0) g/dL Hct (39.6-50.0) % MCH (27.0-32.0) pg MCHC (32.0-37.0) g/dL RDW (11.5-14.5) % Plt Count (140-440) X 10*3/uL MPV (9.5-12.2) fL Immature Gran # (0.00-0.04) X 10*3/uL Neutrophils # (1.80-7.70) X 10*3/uL Lymphocytes # (0.90-5.00) X 10*3/uL Monocytes # (0.20-1.00) X 10*3/uL Eosinophils # (0.04-0.35) X 10*3/uL Carbon Dioxide 28.2 H (20.0-27.5) mmol/L Anion Gap (10.00-18.00) mmol/L BUN 8.8 L (9.0-27.0) mg/dL POC Glucose (mg/dL) 127 H 124 H (70-110) mg/dL Calcium 7.9 L (8.7-10.3) mg/dL Alkaline Phosphatase 137 H (41-126) U/L Total Protein 4.7 L (6.2-8.2) g/dL Albumin 2.1 L (3.8-4.9) g/dL Albumin/Globulin Ratio 0.80 L (1.60-3.17) g/dL 08/04/21 08/04/21 08/04/21 Range/Units 06:59 07:03 07:03 WBC 3.08 L (4.50-10.00) X 10*3/uL RBC 3.07 L (4.40-5.60) X 10*6/uL Hgb 8.1 L (13.0-17.0) g/dL Hct 27.4 L (39.6-50.0) % MCH 26.4 L (27.0-32.0) pg MCHC 29.6 L (32.0-37.0) g/dL RDW 18.1 H (11.5-14.5) % Plt Count 536 H (140-440) X 10*3/uL MPV 9.2 L (9.5-12.2) fL Immature Gran # 0.07 H (0.00-0.04) X 10*3/uL Neutrophils # 1.26 L (1.80-7.70) X 10*3/uL Lymphocytes # 0.58 L (0.90-5.00) X 10*3/uL Monocytes # 1.13 H (0.20-1.00) X 10*3/uL Eosinophils # 0.02 L (0.04-0.35) X 10*3/uL Carbon Dioxide 32.2 H (20.0-27.5) mmol/L Anion Gap 6.60 L (10.00-18.00) mmol/L BUN 8.8 L (9.0-27.0) mg/dL POC Glucose (mg/dL) 117 H (70-110) mg/dL Calcium 7.9 L (8.7-10.3) mg/dL Alkaline Phosphatase 143 H (41-126) U/L Total Protein 4.5 L (6.2-8.2) g/dL Albumin 2.0 L (3.8-4.9) g/dL Albumin/Globulin Ratio 0.77 L (1.60-3.17) g/dL 08/04/21 Range/Units 11:38 WBC (4.50-10.00) X 10*3/uL RBC (4.40-5.60) X 10*6/uL Hgb (13.0-17.0) g/dL Hct (39.6-50.0) % MCH (27.0-32.0) pg MCHC (32.0-37.0) g/dL RDW (11.5-14.5) % Plt Count (140-440) X 10*3/uL MPV (9.5-12.2) fL Immature Gran # (0.00-0.04) X 10*3/uL Neutrophils # (1.80-7.70) X 10*3/uL Lymphocytes # (0.90-5.00) X 10*3/uL Monocytes # (0.20-1.00) X 10*3/uL Eosinophils # (0.04-0.35) X 10*3/uL Carbon Dioxide (20.0-27.5) mmol/L Anion Gap (10.00-18.00) mmol/L BUN (9.0-27.0) mg/dL POC Glucose (mg/dL) 142 H (70-110) mg/dL Calcium (8.7-10.3) mg/dL Alkaline Phosphatase (41-126) U/L Total Protein (6.2-8.2) g/dL Albumin (3.8-4.9) g/dL Albumin/Globulin Ratio (1.60-3.17) g/dL Assessment and Plan Plan: Acute on chronic hypoxic respiratory failure secondary to a moderate size left pleural effusion secondary to metastatic adenocarcinoma of the esophagus. Status post left-sided thoracentesis with 1.5 L of bloody fluid returned on 07/29/2021. Unfortunately, the fluid cytology was also positive and the patient has bilateral malignant pleural effusions consistent with metastatic adenocar cinoma. Currently on 4 L of oxygen by nasal cannula. Metastatic adenocarcinoma of the esophagus, post systemic chemotherapy, currently on Keytruda and 5-FU. Recurrent right-sided pleural effusion, status post Pleurx catheter placement on 06/17/2021 and attempted to drain 07/31/2021 with minimal output. malignant left-sided pleural effusion with some residual loculated fluid upon follow-up chest x-rays delirium, CAT scan of the brain is negative. No focal neurological deficits for now. No significant agitation. Chronic dysphagia, The patient completed a PEG tube insertion and enteral feeding to be started today History of COPD Diabetes mellitus, type II Hypertension Hyperlipidemia Osteoarthritis Obstructive sleep apnea on CPAP History of anxiety chronic anemia, multifactorial, no evidence of any acute GI bleed, received a unit of packed RBC yesterday and the patient's hemoglobin is improved Hypoproteinemia and hypoalbuminemia Extensive lower extremity edema and the patient started on IV Lasix for third spacing Hypokalemia secondary to diuresis Leukopenia probably related to 5-FU/chemotherapy, Plan overall respirator status is stable CAT scan of the brain was negative for metastases CAT scan of the chest abdomen and pelvis was requested by hematology oncology and we'll review the results once available Monitor the white count. Repeat CBC and electrolytes Replace potassium PEG tube insertion was done plan the patient is currently on enteral feeding for nutritional support Prognosis poor and will continue to follow.
[2021-08-04] MEDS: SENNOSIDES-DOCUSATE SODIUM 1 EACH TAB PO SCH (16:11)
--- NOTE | 2021-08-04 16:22 | P.PN ---
Subjective Progress Note Date: 08/04/21 Principal diagnosis: Hypoxia, odynophagia, met eso adenocarcinoma In f/u today pt cont to have intermittent eso spasms, family is not noting any decrease in the frequency or severity. Family is noting that patient remains confused at times, restless, pulling at lines overnight. Patient is very selective in the questions he wants to answer. Objective - Vital Signs Vital signs: Vital Signs Temp 98 F 08/04/21 11:35 Pulse 111 H 08/04/21 11:35 Resp 20 08/04/21 11:35 BP 130/72 08/04/21 11:35 Pulse Ox 92 L 08/04/21 11:35 FiO2 36 08/03/21 23:37 Intake & Output 08/03/21 08/04/21 08/04/21 18:59 06:59 18:59 Output Total 450 Balance -450 Output: Urine 450 Other: Voiding Method Diaper Indwelling Catheter Incontinent - Constitutional General appearance: Present: disheveled, mild distress, morbidly obese - Labs CBC & Chem 7: 08/04/21 07:03 08/04/21 07:03 Labs: Abnormal Lab Results - Last 24 Hours (Table) 08/03/21 08/03/21 08/03/21 Range/Units 05:17 05:17 16:50 WBC (4.50-10.00) X 10*3/uL RBC (4.40-5.60) X 10*6/uL Hgb (13.0-17.0) g/dL Hct (39.6-50.0) % MCH (27.0-32.0) pg MCHC (32.0-37.0) g/dL RDW (11.5-14.5) % Plt Count (140-440) X 10*3/uL MPV (9.5-12.2) fL Immature Gran # (0.00-0.04) X 10*3/uL Neutrophils # 0.9 L (1.3-7.7) k/uL Neutrophils # (Manual) 0.98 L (1.3-7.7) k/uL Lymphocytes # 0.5 L (1.0-4.8) k/uL Lymphocytes # (Manual) 0.54 L (1.0-4.8) k/uL Monocytes # (0.20-1.00) X 10*3/uL Eosinophils # (0.04-0.35) X 10*3/uL Carbon Dioxide 28.2 H (20.0-27.5) mmol/L Anion Gap (10.00-18.00) mmol/L BUN 8.8 L (9.0-27.0) mg/dL POC Glucose (mg/dL) 127 H (70-110) mg/dL Calcium 7.9 L (8.7-10.3) mg/dL Alkaline Phosphatase 137 H (41-126) U/L Total Protein 4.7 L (6.2-8.2) g/dL Albumin 2.1 L (3.8-4.9) g/dL Albumin/Globulin Ratio 0.80 L (1.60-3.17) g/dL 08/03/21 08/04/21 08/04/21 Range/Units 20:42 06:59 07:03 WBC 3.08 L (4.50-10.00) X 10*3/uL RBC 3.07 L (4.40-5.60) X 10*6/uL Hgb 8.1 L (13.0-17.0) g/dL Hct 27.4 L (39.6-50.0) % MCH 26.4 L (27.0-32.0) pg MCHC 29.6 L (32.0-37.0) g/dL RDW 18.1 H (11.5-14.5) % Plt Count 536 H (140-440) X 10*3/uL MPV 9.2 L (9.5-12.2) fL Immature Gran # 0.07 H (0.00-0.04) X 10*3/uL Neutrophils # 1.26 L (1.3-7.7) k/uL Neutrophils # (Manual) (1.3-7.7) k/uL Lymphocytes # 0.58 L (1.0-4.8) k/uL Lymphocytes # (Manual) (1.0-4.8) k/uL Monocytes # 1.13 H (0.20-1.00) X 10*3/uL Eosinophils # 0.02 L (0.04-0.35) X 10*3/uL Carbon Dioxide (20.0-27.5) mmol/L Anion Gap (10.00-18.00) mmol/L BUN (9.0-27.0) mg/dL POC Glucose (mg/dL) 124 H 117 H (70-110) mg/dL Calcium (8.7-10.3) mg/dL Alkaline Phosphatase (41-126) U/L Total Protein (6.2-8.2) g/dL Albumin (3.8-4.9) g/dL Albumin/Globulin Ratio (1.60-3.17) g/dL 08/04/21 08/04/21 Range/Units 07:03 11:38 WBC (4.50-10.00) X 10*3/uL RBC (4.40-5.60) X 10*6/uL Hgb (13.0-17.0) g/dL Hct (39.6-50.0) % MCH (27.0-32.0) pg MCHC (32.0-37.0) g/dL RDW (11.5-14.5) % Plt Count (140-440) X 10*3/uL MPV (9.5-12.2) fL Immature Gran # (0.00-0.04) X 10*3/uL Neutrophils # (1.3-7.7) k/uL Neutrophils # (Manual) (1.3-7.7) k/uL Lymphocytes # (1.0-4.8) k/uL Lymphocytes # (Manual) (1.0-4.8) k/uL Monocytes # (0.20-1.00) X 10*3/uL Eosinophils # (0.04-0.35) X 10*3/uL Carbon Dioxide 32.2 H (20.0-27.5) mmol/L Anion Gap 6.60 L (10.00-18.00) mmol/L BUN 8.8 L (9.0-27.0) mg/dL POC Glucose (mg/dL) 142 H (70-110) mg/dL Calcium 7.9 L (8.7-10.3) mg/dL Alkaline Phosphatase 143 H (41-126) U/L Total Protein 4.5 L (6.2-8.2) g/dL Albumin 2.0 L (3.8-4.9) g/dL Albumin/Globulin Ratio 0.77 L (1.60-3.17) g/dL Assessment and Plan (1) Dysphagia Current Visit: Yes Status: Acute Priority: High Code(s): R13.10 - DYSPHAGIA, UNSPECIFIED SNOMED Code(s): 84962148 (2) Esophageal cancer Current Visit: Yes Status: Acute Priority: High Code(s): C15.9 - MALIGNANT NEOPLASM OF ESOPHAGUS, UNSPECIFIED SNOMED Code(s): 986838832 (3) Failure to thrive in adult Current Visit: Yes Status: Acute Priority: High Code(s): R62.7 - ADULT FAILURE TO THRIVE SNOMED Code(s): 952221916 (4) Pleural effusion, left Current Visit: Yes Status: Acute Priority: High Code(s): J90 - PLEURAL EFFUSION, NOT ELSEWHERE CLASSIFIED SNOMED Code(s): 47995637 Plan: Resp status improved after lt thoracentesis. Cytology resulted, c/w eso adenocarcinoma. CT CAP to restage since progression is new since most recent CT scan, just 1 mo ago. Pt refused new line for so contrast could be administered but, he agreed today. Odynophagia with eso spasm. Peg has been inserted for nutritional supplementation. Working with current pain medications and adjusting antispasmodics to find a combination that provides hopefully decreased frequency and severity of symptoms. Having to be cautious with meds that can alter mentation. F/U Dr. Umaña in 2 weeks is sched. Had a long talk with family and pt (though he was not participating much) about expectations for treatment and goals. Concern for family ability to manage pt at home. Discussed philosophy of palliative and hospice care. Pt and family agreeable to have a meeting with palliative care to discuss what the service offers. Discussed case with Palliative care team. Attests: I have seen and examined pt, performed H&P, developed impression and plan of care. Discussed with dictator, agree with dictation, documented as a scribe Time with Patient: Greater than 30
[2021-08-04 17:07] LABS: Glucose,Whole Blood 96 mg/dL (70-110)
[2021-08-04] MEDS: ALBUMIN HUMAN 25% 50 ML in EMPTY BAG 1 BAG IVPB SCH ×2 (17:31→18:36)
--- NOTE | 2021-08-04 19:14 | CT ---
EXAMINATION TYPE: CT ChestAbdPelvis w con CT DLP: 2340 mGycm, Automated exposure control for dose reduction was used. DATE OF EXAM: 08/04/2021 2:32 PM COMPARISON: CT 07/08/2021. PET scan 02/25/2021. CT chest 05/09/2021. CLINICAL INDICATION:Male, 70 years old with history of restaging, eso adeno, progression treatment, R estaging, eso adeno, progression treatment. Technique: Multiple axial images of the chest, abdomen, and pelvis were obtained following the intrav enous administration of 100 mL Isovue-300. Two-dimensional coronal and sagittal reconstructions were obtained. Findings: CHEST: LUNGS/ PLEURA: Bilateral pleural effusions (right with associated atelectasis. The right pleural effu columba appears loculated. Right Pleurx catheter with tubing terminating near the medial aspect of the r ight pleural space. There is fluid tracking along the right major and minor fissures. There is thicke tonie of interlobular septa. AIRWAY: Patent and unremarkable.. HEART: Size within normal limits. Moderate coronary artery atherosclerosis. MEDIASTINUM: Esophageal stent is present and patent involving the distal aspect of the esophagus. The re is a similar appearance of the esophagus with hazy interface of the surrounding fat along the cour se of the esophageal stent. Scattered mediastinal lymph nodes some of which appear stable in size whi le a right low paratracheal lymph node appears larger measuring 2.6 x 1.8 cm, previously 2.2 x 1.7 cm . VASCULATURE: No aortic aneurysm. Right chest wall [id number] with distal tip in appropriate posit ion in the superior vena cava. The pulmonary trunk is dilated measuring up to 4.1 cm. MUSCULOSKELETAL: No acute osseous abnormalities. Right hip prosthesis partially visualized. There is osseous fusion of the pubic symphysis. Similar areas of sclerosis involving the T10, T12, L4 and S1 v ertebral bodies. Additional areas of subtle sclerosis including the left femoral head/neck. T10 verte bral body sclerotic focus was seen on 05/09/2021. Right rib #6 sclerotic focus is more conspicuous on t leif's exam. SOFT TISSUES/LYMPH NODES: Unremarkable. LOWER NECK: No significant findings. ABDOMEN: ABDOMEN LIVER: Hepatic cyst measuring up to 16 mm. GALLBLADDER AND BILE DUCTS: Unremarkable. PANCREAS: Unremarkable. SPLEEN: Unremarkable. ADRENAL GLANDS: Left adrenal gland nodule has decreased in size from prior PET imaging but appears st able from 07/08/2021. KIDNEYS AND URETERS: No evidence of hydronephrosis or renal calculus. PELVIS BLADDER: Unremarkable REPRODUCTIVE: Unremarkable. ABDOMEN & PELVIS STOMACH AND BOWEL: PEG tube with balloon in the stomach lumen. The duodenum is unremarkable. No evide nce of bowel obstruction. PERITONEUM: No evidence of pneumoperitoneum or free fluid. VASCULATURE: No evidence of aortic aneurysm. Scattered arterial sclerosis. LYMPH NODES: No gross evidence for lymphadenopathy. SOFT TISSUE/ABDOMINAL WALL: Unremarkable IMPRESSION: 1. Similar appearance of esophageal stent with hazy appearance of the esophageal wall/mediastinal fa t interface when comparing to 07/08/2021. A majority of the lymph nodes in the mediastinum, lower neck and left axilla appears grossly similar compared to 07/08/2021. One right low paratracheal lymph node a ppears mildly larger on today's exam when compared to 07/08/2021. Attention on follow-up imaging. 2. Multiple osseous sclerotic lesions which appears similar to 07/08/[address]/PET 2 and may represent foci of metastatic disease with posttreatment changes. Attention on follow-up jeffy ging. 3. Bilateral pleural effusions with right Pleurx catheter in appropriate position. 4. Decrease in size in left adrenal metastatic nodule which is similar to prior 07/08/2021. 5. Cardiomegaly with pulmonary vascular congestion.
[2021-08-04 20:10] LABS: Glucose,Whole Blood 81 mg/dL (70-110)
[2021-08-04] MEDS: EZETIMIBE 10 MG TAB PO SCH (21:18)
[2021-08-04] MEDS: OLANZapine 7.5 MG TAB PO SCH (21:18)
[2021-08-04] MEDS: ATORVASTATIN 10 MG TAB PO SCH (21:19)
[2021-08-04] MEDS: HYDROmorphone 0.5 MG/0.5 ML SYRINGE IVP PRN (22:12)
[2021-08-05] MEDS: FUROSEMIDE 10 MG/ML 2 ML VIAL IV SCH ×3 (00:08→17:15)
[2021-08-05] MEDS: SUCRALFATE 1 GM TAB PO SCH ×4 (00:08→17:15)
[2021-08-05] MEDS: MAG HYDROX/AL HYDROX/SIMETH 30 ML, diphenhydrAMINE ELIXIR 75 MG, LIDOCAINE VISCOUS 2% 3... PO SCH ×18 (00:12→22:46)
[2021-08-05] MEDS: ALBUTEROL NEBULIZED 2.5 MG/3 ML INHALATION PRN ×2 (00:34→05:10)
[2021-08-05] MEDS: guaiFENesin-Coden 100-10MG/5ML 10 ML CUP PO SCH ×4 (03:40→22:45)
[2021-08-05] MEDS: HYDROcodone/APAP 15 ML SOLUTION PO SCH ×2 (03:41→10:16)
[2021-08-05] MEDS: HYDROmorphone 0.5 MG/0.5 ML SYRINGE IVP PRN (05:23)
[2021-08-05] MEDS: FLUTICASONE 50MCG/SPRAY NASAL 16GM EA NOSTRIL SCH ×2 (05:24→17:16)
[2021-08-05] MEDS: LORATADINE 10 MG TAB PO SCH (05:24)
[2021-08-05] MEDS: METOPROLOL SUCCINATE (ER) 50 MG TAB.ER.24H PO SCH ×2 (05:24→17:15)
[2021-08-05] MEDS: PANTOPRAZOLE 40 MG TABLET PO SCH ×2 (05:24→17:15)
[2021-08-05] MEDS: ARTIFICIAL TEARS-HYPROMELLOSE DROPS 15 ML BTL BOTH EYES SCH ×2 (05:24→17:16)
[2021-08-05] MEDS: ALPRAZolam 0.25 MG TAB PO SCH ×3 (05:24→17:15)
[2021-08-05] MEDS: glipiZIDE 5 MG TAB PO SCH ×2 (05:26→17:15)
[2021-08-05 06:58] LABS: Glucose,Whole Blood 112 mg/dL (70-110)
[2021-08-05] MEDS: DICYCLOMINE 10 MG CAP PO SCH ×3 (07:55→22:45)
[2021-08-05] MEDS: SENNOSIDES-DOCUSATE SODIUM 1 EACH TAB PO SCH (07:55)
[2021-08-05] MEDS: ENOXAPARIN 40 MG/0.4 ML SYRINGE SQ SCH (07:55)
[2021-08-05] MEDS: METOCLOPRAMIDE 10 MG TAB PO SCH ×2 (07:56→19:26)
[2021-08-05] MEDS: OLANZapine 7.5 MG TAB PO SCH (07:57)
[2021-08-05] MEDS: IPRATROPIUM-ALBUTEROL 3 ML NEB INHALATION SCH ×4 (08:10→19:18)
[2021-08-05] MEDS: SYMBICORT 80-4.5 MCG INHALER INHALATION SCH ×2 (08:10→19:19)
--- NOTE | 2021-08-05 10:50 | P.PN ---
Progress Note - Text Progress Note Date: 08/05/21 Patient's PEG tube site is clean. PEG tube dysfunction. He will continue receive supportive care.
[2021-08-05 11:07] LABS: Glucose,Whole Blood 103 mg/dL (70-110)
--- NOTE | 2021-08-05 11:30 | P.PN ---
Subjective Progress Note Date: 08/05/21 Principal diagnosis: shortness of breath, left pleural effusion This is a very pleasant 70-year-old male patient with a history of hypertension, hyperlipidemia, diabetes mellitus, obstructive sleep apnea utilizing CPAP osteoarthritis with multiple orthopedic surgeries, nonsmoker. The patient also has a history of esophageal cancer with previous stent placed in April 2021. 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 Most recently he had a right-sided Pleurx catheter placement on 06/17/2021 and fluid was positive for metastatic adenocarcinoma. He presented here to the emergency room on 07/27/21 with complaints of increasing shortness of breath and is now found to have a large left-sided pleural effusion. Patient was admitted to medical floor for further evaluation and treatment cardiology and pulmonary consultation. On 07/29/2021 patient's alert and oriented 3. Patient underwent a thoracentesis on the left side per Dr. Ling with 1.5 L bloody fluid drained. Patient reports significant improvement with pain and breathing. On 08/01/2021 the patient's hemoglobin was down to 6.8 and 1 unit of red blood cells were transfused. PEG tube placement was put on hold. On 08/02/21 The patient had a PEG tube placed by Dr. Cole. 08/03/21 The patient had some hallucinations overnight. In the morning he was more appropriate. Underwent a PEG tube insertion 08/02 and is tolerating tube feedings well. 08/04 Met with the patient's , daughter, and son-in-law. Palliative care philosophies and services explained. The patient is confused and restless. He does state that his pain is controlled. The patient is scheduled for an abdominal/pelvis and head CT. Oncology did discussed disease progression on treatment is concerning for aggressive disease. Awaiting results to determine a treatment plan moving forward. The family has indicated that they are still interested in aggressive treatment. They are not ready to give up or discuss ho spice. They are hoping to take the patient home. The did voice a concern that he may be too much for her to handle. Objective - Vital Signs Vital signs: Vital Signs Temp 97.9 F 08/05/21 04:34 Pulse 90 08/05/21 08:23 Resp 20 08/05/21 04:34 BP 122/64 08/05/21 04:34 Pulse Ox 95 08/05/21 00:35 FiO2 36 08/05/21 00:35 Intake & Output 08/04/21 08/05/21 08/05/21 18:59 06:59 18:59 Intake Total 240 Output Total 1000 600 Balance -1000 -360 Weight 123.5 kg Intake: Oral 240 Output: Urine 1000 600 Other: Voiding Method Indwelling Catheter Indwelling Catheter Indwelling Catheter - Exam General: Patient is restless, but more responsive and alert. No acute distress. HEENT: Head is atraumatic, normocephalic Sclerae are clear. Pupils equal, round and reactive to light bilaterally. CV: Heart regular rhythm and rate. positive S1 and S2. No clicks, rubs or murmurs. Peripheral pulses equal. 2/4 Lungs: Diminished, crackles to bilateral bases. No wheezes rales or rhonchi. Respirations even and slightly labored. No intercostal retractions. On 4L NC Abdomen/GI: Soft. Bowel sounds present in all 4 quadrants. Bowel sounds normoactive. No abdominal tenderness. Peg site clean and dry. : Whalen catheter in place Musculoskeletal/ Extremities: + generalized weakness Vascular: Radial pulses equal. 2/4. 2+ bilateral LE edema Skin: Warm and dry. No rash. Neurologic: + confusion, No focal deficits, CN II-XII grossly intact Psychiatric: Flat affect - Labs CBC & Chem 7: 08/04/21 07:03 08/05/21 06:40 Labs: Abnormal Lab Results - Last 24 Hours (Table) 08/03/21 08/04/21 08/05/21 Range/Units 05:17 11:38 06:57 Carbon Dioxide 28.2 H (20.0-27.5) mmol/L BUN 8.8 L (9.0-27.0) mg/dL POC Glucose (mg/dL) 142 H 112 H (70-110) mg/dL Calcium 7.9 L (8.7-10.3) mg/dL Alkaline Phosphatase 137 H (41-126) U/L Total Protein 4.7 L (6.2-8.2) g/dL Albumin 2.1 L (3.8-4.9) g/dL Albumin/Globulin Ratio 0.80 L (1.60-3.17) g/dL Assessment and Plan Assessment: Symptoms * Pain - 3/10 to esophagus and lower back. States pain is well controlled on current regimen. Continue Jewett, Fentanyl patch, and Dilaudid * Fatigue - Chronic weakness and fatigue getting progressively worse * SOB - Mild at rest, worse with activity, unable to tolerate lying flat. Continue 4L NC, symbicort, duoneb, albuterol, lasix, * Insomnia - No * N/V - Intermittent nausea, continue Zofran and Reglan * Anxiety - Yes, continue Xanax * Depression - Yes - mild * Confusion - Yes, improved per , continue Zyprexa, ? polyphamacy/or recent anesthesia related. Discontinue Benadryl * Agitation - Yes * Hallucinations - Yes, improved - none last night * Appetite/weight loss - unable to eat much due to pain in esophagus, peg tube placed. Continue ground diet and tube feedings. Nutrition following * Dysphagia - Yes * Constipation - LBM 6/30 per . Continue Senokot-S * Incontinence - No, whalen catheter * Itch - no Plan: Summary/Goals - at bedside during examination. She stated the patient was not as confused last night He did have a bit of confusion at approximately 0900 today per , but it seems to have cleared. The patient is A&O x 3 currently. He chooses which questions he would like to answer. He is very restless requiring frequent repositioning. He was able to walk to the bathroom with assistance from his and a walker. He states his pain in his back is 3/10, (the RN had just given him a Jewett 10 min prior). He reports that the pain r egimen is controlling his pain fairly well. The patient did not even attempt to eat breakfast this morning. He is tolerating tube feeds well per RN. CT of brain without any acute abnormality or gross intracranial metastatic disease. CT of abdomen/pelvis without change from previous exam. The patient and his indicated that they are still interested in aggressive treatment. They are not ready to give up or discuss hospice. They are hoping to take the patient home. The did voice a concern that he may be too much for her to handle. Recommendation - Consider a calcium channel henry for esophageal spasms Advanced Directives - No, information provided Code Status - Full code. Thank you for this consult Camille Negrete [facility] Palliative Care [facility] [phone] Email: [email or web address] Time with Patient: Less than 30
[2021-08-05] MEDS ORDERED: Potassium Replacement Protocol 1 EACH MISC MISCELLANE PRN (11:40)
--- NOTE | 2021-08-05 12:20 | P.PN ---
Subjective Progress Note Date: 08/05/21 Principal diagnosis: Hypoxia, odynophagia, met eso adenocarcinoma In f/u today pt is sleeping. Family and nursing have noted hallucinations and change in behavior after patient receives Mcclelland. These changes are not apparent when patient receives the IV Dilaudid. reports some stool when patient is cleaned up, denies a bowel movement. is not alert enough to tell me if he is having less frequent or less intense esophageal spasms after changes in medications. Objective - Vital Signs Vital signs: Vital Signs Temp 97.9 F 08/05/21 04:34 Pulse 92 08/05/21 11:33 Resp 20 08/05/21 04:34 BP 122/64 08/05/21 04:34 Pulse Ox 95 08/05/21 00:35 FiO2 36 08/05/21 00:35 Intake & Output 08/04/21 08/05/21 08/05/21 18:59 06:59 18:59 Intake Total 240 Output Total 1000 600 Balance -1000 -360 Weight 123.5 kg Intake: Oral 240 Output: Urine 1000 600 Other: Voiding Method Indwelling Catheter Indwelling Catheter Indwelling Catheter - Exam Well-developed, overweight, frail male laying in bed, no acute distress, respirations are even and unlabored, bilateral breath sounds diminished in the bases, some scattered crackles right greater than left. PEG in situ, trace swelling in the bilateral lower extremities and feet - Labs CBC & Chem 7: 08/04/21 07:03 08/05/21 06:40 Labs: Abnormal Lab Results - Last 24 Hours (Table) 08/05/21 Range/Units 06:57 POC Glucose (mg/dL) 112 H (70-110) mg/dL - Imaging and Cardiology CT scan - abdomen: report reviewed CT scan - chest: report reviewed CT scan - pelvis: report reviewed Assessment and Plan (1) Dysphagia Current Visit: Yes Status: Acute Priority: High Code(s): R13.10 - DYSPHAGIA, UNSPECIFIED SNOMED Code(s): 29716675 (2) Esophageal cancer Current Visit: Yes Status: Acute Priority: High Code(s): C15.9 - MALIGNANT NEOPLASM OF ESOPHAGUS, UNSPECIFIED SNOMED Code(s): 845834960 (3) Failure to thrive in adult Current Visit: Yes Status: Acute Priority: High Code(s): R62.7 - ADULT FAILURE TO THRIVE SNOMED Code(s): 366054431 (4) Pleural effusion, left Current Visit: Yes Status: Acute Priority: High Code(s): J90 - PLEURAL EFFUSION, NOT ELSEWHERE CLASSIFIED SNOMED Code(s): 24131742 Plan: Resp status improved after lt thoracentesis. Cytology resulted, c/w eso adenocarcinoma. CT CAP to restage reporting stable disease, slight increase in the size of the lymph node, there is some thickening of the pleura. Based on these results, treating Oncologist may consider adjustments in current therapy or changing to a different therapy altogether. Either way, family agrees that patient needs some time for recovery. Follow-up with [facility] is in 2 weeks, treatment on hold until then. Odynophagia with eso spasm. Peg has been inserted for nutritional supplementation. is being educated and management of the same. Patient is not alert enough at this time to assess if the changes in medications have provided him with less frequent esophageal spasms or less intense esophageal spasms. Will not add any additional medications at this time until patient is able to be properly assessed. Family and nursing noting hallucinations and agitated behavior after receiving Mcclelland. No reports of this type of behavior after receiving IV Dilaudid. PO Dilaudid has been ordered and it is requested that this be administered for pain so that tolerance and effectiveness can be assessed. The IV Dilaudid was left for urgent situations. Patient has met with the palliative care team. Encouraged to be certain that she can manage his care alone at home.
[2021-08-05] MEDS: POTASSIUM CHLORIDE ER 20 MEQ TAB.ER PO SCH ×2 (12:24→14:33)
--- NOTE | 2021-08-05 12:51 | P.PN ---
Subjective Progress Note Date: 08/03/21 Xiang Pimentel, 70-year-old male patient who presented to [facility] emergency room with a chief complaint of worsening shortness of breath patient has a known history of esophageal cancer, he has chronic right sided pleural effusion, he had a right-sided Pleurx catheter placement on 06/17/2021 and fluid was positive for metastatic adenocarcinoma. He was evaluated in the emergency room vital examination on presentation revealed a temperature of 97.9 pulse 118 respiration 22 blood pressure 129/78 pulse ox 95% on 3 L nasal cannula Laboratory data reveals a white blood count of 14.8 hemoglobin 8.6 platelet count 349 sodium 134 potassium 3.1 chloride 99 CO2 34 BUN 12 creatinine 0.47 Testing in the emergency room revealed chest x-ray done in the emergency room revealed evidence of congestive heart failure with pleural effusions, fluid increased on the left side compared to old exam Patient was admitted to medical floor for further evaluation and treatment cardiology and pulmonary consultation were requested Past medical history history of hypertension, hyperlipidemia, diabetes mellitus, obstructive sleep apnea utilizing CPAP osteoarthritis with multiple orthopedic surgeries, nonsmoker. The patient also has a history of esophageal cancer with previous stent placed in April 2021. 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 On 07/29/2021 patient's alert and oriented 3. Patient underwent arthrocentesis the same on the left side per Dr. Ling. Patient reports significant improvement with pain and breathing. Talks about possible feeding tube per patient and . At this time patient denies chest pain. Patient denies nausea vomiting or diarrhea. Patient denies any urinary burning or frequency. On 07/30/2021 patient was seen and examined on the medical floor, he is alert and oriented 3 in no apparent distress, he is complaining of shortness of breat h with any activity he is complaining of bilateral lower extremity swelling, pain is better controlled at this time, there is no fever or chills no headache or dizziness no chest pain no nausea or vomiting no abdominal pain no diarrhea and no urinary symptoms. Patient was seen by Dr. Cole this morning, he is scheduled for PEG tube feeding placement on Sunday, patient had multiple questions regarding the pros and cons of initiating tube feeding, this was discussed with him in details. On 07/31/2021 patient's alert and oriented 3. Patient having some increased shortness of breath chest x-ray has been ordered per pulmonary to assess if patient needs fluid draining from lungs. Patient is tentatively scheduled for PEG tube placement tomorrow per surgical services. At this time patient denies chest pain. Patient denies nausea vomiting or diarrhea. Patient denies any urinary burning or frequency On 08/01/2021 patient was seen and examined on the medical floor he is alert and oriented 3 in no apparent distress, hemoglobin was down to 6.8 this morning 1 unit of red blood cell transfusion was ordered, PEG tube placement was put on hold at this time, otherwise patient denies any complaint his pain is well controlled. On 08/02/2021 patient was seen and examined on the medical floor he is alert and oriented 3 in no distress, hemoglobin is up to 8.8 today, patient is scheduled for PEG tube placement today, this time he denies any complaints. On 08/03/2021 patient was seen and examined on the medical floor he is alert and oriented 3 in no apparent distress he is complaining of generalized pain and complaining of episode of confusion otherwise there is no complaints PEG tube was placed, there is no fever or chills no headache or dizziness no chest pain no shortness of breath no cough no nausea or vomiting no abdominal pain no diarrhea and no urinary symptoms Objective - Vital Signs Vital signs: Vital Signs Temp 98.7 F 08/03/21 11:26 Pulse 99 08/03/21 11:47 Resp 14 08/03/21 11:26 BP 106/68 08/03/21 11:26 Pulse Ox 95 08/03/21 11:26 FiO2 21 07/31/21 19:46 Intake & Output 08/02/21 08/03/21 08/03/21 18:59 06:59 18:59 Intake Total 100 120 Balance 100 120 Weight 124 kg Intake: IV 100 Oral 120 Other: Voiding Method Bedside Commode Diaper Incontinent - Exam In general patient is alert and oriented x 3 in no distress HEENT head normocephalic and atraumatic Neck is supple no JVD no goiter no lymphadenopathy no carotid bruit Chest examination reveals a scattered bilateral crackles no wheezing Cardiac exam reveals regular heart sounds S1 and S2 no gallops no murmurs Abdomen is soft nontender no organomegaly with normal bowel sounds Extremity exam reveals no edema no cyanosis or clubbing Neurological examination reveals no gross focal deficits - Labs CBC & Chem 7: 08/04/21 07:03 08/05/21 06:40 Labs: Abnormal Lab Results - Last 24 Hours (Table) 08/02/21 08/02/21 08/03/21 Range/Units 16:34 20:31 05:17 WBC 2.0 L (3.8-10.6) k/uL RBC 3.08 L (4.30-5.90) m/uL Hgb 8.5 L (13.0-17.5) gm/dL Hct 27.8 L (39.0-53.0) % MCHC 30.6 L (31.0-37.0) g/dL RDW 17.8 H (11.5-15.5) % Plt Count 482 H (150-450) k/uL POC Glucose (mg/dL) 153 H 148 H (70-110) mg/dL 08/03/21 Range/Units 11:08 WBC (3.8-10.6) k/uL RBC (4.30-5.90) m/uL Hgb (13.0-17.5) gm/dL Hct (39.0-53.0) % MCHC (31.0-37.0) g/dL RDW (11.5-15.5) % Plt Count (150-450) k/uL POC Glucose (mg/dL) 146 H (70-110) mg/dL Microbiology - Last 24 Hours (Table) 07/27/21 21:45 Blood Culture - Final Blood No Growth after 144 hours 07/27/21 21:30 Blood Culture - Final Blood No Growth after 144 hours 07/29/21 08:15 Gram Stain - Final Pleural Fluid Body Fluid Culture - Final Assessment and Plan Plan: Esophageal cancer with metastatic disease Acute on chronic hypoxic respiratory failure, due to bilateral pleural effusions, patient also has congestion on chest x-ray, echocardiogram ordered and cardiology consultation requested to rule out congestive heart failure Recurrent right sided pleural effusion with recent Pleurx catheter placement one month ago Underlying history of hypertension Underlying history of diabetes mellitus type 2 Underlying history of hyperlipidemia Underlying history of obstructive sleep apnea maintained on CPAP Chronic pain related to esophageal cancer maintained on narcotics for pain management Underlying history of COPD At this time patient is admitted to medical floor Home medications reviewed and reordered Pulmonary and cardiology consultation was requested Status post thoracentesis on 07/29/2021 Tentative plans for PEG tube placement 08/01/2021 For DVT prophylaxis we will use Lovenox For GI prophylaxis continue Protonix Will follow closely
--- NOTE | 2021-08-05 12:53 | P.PN ---
Subjective Progress Note Date: 08/04/21 Xiang Pimentel, 70-year-old male patient who presented to [facility] emergency room with a chief complaint of worsening shortness of breath patient has a known history of esophageal cancer, he has chronic right sided pleural effusion, he had a right-sided Pleurx catheter placement on 06/17/2021 and fluid was positive for metastatic adenocarcinoma. He was evaluated in the emergency room vital examination on presentation revealed a temperature of 97.9 pulse 118 respiration 22 blood pressure 129/78 pulse ox 95% on 3 L nasal cannula Laboratory data reveals a white blood count of 14.8 hemoglobin 8.6 platelet count 349 sodium 134 potassium 3.1 chloride 99 CO2 34 BUN 12 creatinine 0.47 Testing in the emergency room revealed chest x-ray done in the emergency room revealed evidence of congestive heart failure with pleural effusions, fluid increased on the left side compared to old exam Patient was admitted to medical floor for further evaluation and treatment cardiology and pulmonary consultation were requested Past medical history history of hypertension, hyperlipidemia, diabetes mellitus, obstructive sleep apnea utilizing CPAP osteoarthritis with multiple orthopedic surgeries, nonsmoker. The patient also has a history of esophageal cancer with previous stent placed in April 2021. 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 On 07/29/2021 patient's alert and oriented 3. Patient underwent arthrocentesis the same on the left side per Dr. Ling. Patient reports significant improvement with pain and breathing. Talks about possible feeding tube per patient and . At this time patient denies chest pain. Patient denies nausea vomiting or diarrhea. Patient denies any urinary burning or frequency. On 07/30/2021 patient was seen and examined on the medical floor, he is alert and oriented 3 in no apparent distress, he is complaining of shortness of breat h with any activity he is complaining of bilateral lower extremity swelling, pain is better controlled at this time, there is no fever or chills no headache or dizziness no chest pain no nausea or vomiting no abdominal pain no diarrhea and no urinary symptoms. Patient was seen by Dr. Cole this morning, he is scheduled for PEG tube feeding placement on Sunday, patient had multiple questions regarding the pros and cons of initiating tube feeding, this was discussed with him in details. On 07/31/2021 patient's alert and oriented 3. Patient having some increased shortness of breath chest x-ray has been ordered per pulmonary to assess if patient needs fluid draining from lungs. Patient is tentatively scheduled for PEG tube placement tomorrow per surgical services. At this time patient denies chest pain. Patient denies nausea vomiting or diarrhea. Patient denies any urinary burning or frequency On 08/01/2021 patient was seen and examined on the medical floor he is alert and oriented 3 in no apparent distress, hemoglobin was down to 6.8 this morning 1 unit of red blood cell transfusion was ordered, PEG tube placement was put on hold at this time, otherwise patient denies any complaint his pain is well controlled. On 08/02/2021 patient was seen and examined on the medical floor he is alert and oriented 3 in no distress, hemoglobin is up to 8.8 today, patient is scheduled for PEG tube placement today, this time he denies any complaints. On 08/03/2021 patient was seen and examined on the medical floor he is alert and oriented 3 in no apparent distress he is complaining of generalized pain and complaining of episode of confusion otherwise there is no complaints PEG tube was placed, there is no fever or chills no headache or dizziness no chest pain no shortness of breath no cough no nausea or vomiting no abdominal pain no diarrhea and no urinary symptoms On 08/04/2021 patient was seen and examined on the medical floor he is alert and oriented in no apparent distress, he is having episodes of confusion and hallucination especially after taking pain medications, otherwise he denies any complaints at this time, patient has severe bilateral lower extremity edema, at this time plan to give IV albumin and continue with IV Lasix, also plan is to decrease dose of pain medications and increase dose of Zyprexa to 7.5 mg at bedtime will continue to monitor closely Objective - Vital Signs Vital signs: Vital Signs Temp 98 F 08/04/21 11:35 Pulse 108 H 08/04/21 15:27 Resp 20 08/04/21 11:35 BP 130/72 08/04/21 11:35 Pulse Ox 94 L 08/04/21 15:08 FiO2 36 08/03/21 23:37 Intake & Output 08/03/21 08/04/21 08/04/21 18:59 06:59 18:59 Output Total 450 700 Balance -450 -700 Output: Urine 450 700 Other: Voiding Method Diaper Indwelling Catheter Incontinent - Exam In general patient is alert and oriented x 3 in no distress HEENT head normocephalic and atraumatic Neck is supple no JVD no goiter no lymphadenopathy no carotid bruit Chest examination reveals a scattered bilateral crackles no wheezing Cardiac exam reveals regular heart sounds S1 and S2 no gallops no murmurs Abdomen is soft nontender no organomegaly with normal bowel sounds Extremity exam reveals no edema no cyanosis or clubbing Neurological examination reveals no gross focal deficits - Labs CBC & Chem 7: 08/04/21 07:03 08/05/21 06:40 Labs: Abnormal Lab Results - Last 24 Hours (Table) 08/03/21 08/03/21 08/04/21 Range/Units 05:17 20:42 06:59 WBC (4.50-10.00) X 10*3/uL RBC (4.40-5.60) X 10*6/uL Hgb (13.0-17.0) g/dL Hct (39.6-50.0) % MCH (27.0-32.0) pg MCHC (32.0-37.0) g/dL RDW (11.5-14.5) % Plt Count (140-440) X 10*3/uL MPV (9.5-12.2) fL Immature Gran # (0.00-0.04) X 10*3/uL Neutrophils # (1.80-7.70) X 10*3/uL Lymphocytes # (0.90-5.00) X 10*3/uL Monocytes # (0.20-1.00) X 10*3/uL Eosinophils # (0.04-0.35) X 10*3/uL Carbon Dioxide 28.2 H (20.0-27.5) mmol/L Anion Gap (10.00-18.00) mmol/L BUN 8.8 L (9.0-27.0) mg/dL POC Glucose (mg/dL) 124 H 117 H (70-110) mg/dL Calcium 7.9 L (8.7-10.3) mg/dL Alkaline Phosphatase 137 H (41-126) U/L Total Protein 4.7 L (6.2-8.2) g/dL Albumin 2.1 L (3.8-4.9) g/dL Albumin/Globulin Ratio 0.80 L (1.60-3.17) g/dL 08/04/21 08/04/21 08/04/21 Range/Units 07:03 07:03 11:38 WBC 3.08 L (4.50-10.00) X 10*3/uL RBC 3.07 L (4.40-5.60) X 10*6/uL Hgb 8.1 L (13.0-17.0) g/dL Hct 27.4 L (39.6-50.0) % MCH 26.4 L (27.0-32.0) pg MCHC 29.6 L (32.0-37.0) g/dL RDW 18.1 H (11.5-14.5) % Plt Count 536 H (140-440) X 10*3/uL MPV 9.2 L (9.5-12.2) fL Immature Gran # 0.07 H (0.00-0.04) X 10*3/uL Neutrophils # 1.26 L (1.80-7.70) X 10*3/uL Lymphocytes # 0.58 L (0.90-5.00) X 10*3/uL Monocytes # 1.13 H (0.20-1.00) X 10*3/uL Eosinophils # 0.02 L (0.04-0.35) X 10*3/uL Carbon Dioxide 32.2 H (20.0-27.5) mmol/L Anion Gap 6.60 L (10.00-18.00) mmol/L BUN 8.8 L (9.0-27.0) mg/dL POC Glucose (mg/dL) 142 H (70-110) mg/dL Calcium 7.9 L (8.7-10.3) mg/dL Alkaline Phosphatase 143 H (41-126) U/L Total Protein 4.5 L (6.2-8.2) g/dL Albumin 2.0 L (3.8-4.9) g/dL Albumin/Globulin Ratio 0.77 L (1.60-3.17) g/dL Assessment and Plan Plan: Esophageal cancer with metastatic disease Acute on chronic hypoxic respiratory failure, due to bilateral pleural effusions, patient also has congestion on chest x-ray, echocardiogram ordered and cardiology consultation requested to rule out congestive heart failure Recurrent right sided pleural effusion with recent Pleurx catheter placement one month ago Underlying history of hypertension Underlying history of diabetes mellitus type 2 Underlying history of hyperlipidemia Underlying history of obstructive sleep apnea maintained on CPAP Chronic pain related to esophageal cancer maintained on narcotics for pain management Underlying history of COPD At this time patient is admitted to medical floor Home medications reviewed and reordered Pulmonary and cardiology consultation was requested Status post thoracentesis on 07/29/2021 Tentative plans for PEG tube placement 08/01/2021 For DVT prophylaxis we will use Lovenox For GI prophylaxis continue Protonix Will follow closely
--- NOTE | 2021-08-05 12:55 | P.PN ---
Subjective Progress Note Date: 08/05/21 Xiang Pimentel, 70-year-old male patient who presented to [facility] emergency room with a chief complaint of worsening shortness of breath patient has a known history of esophageal cancer, he has chronic right sided pleural effusion, he had a right-sided Pleurx catheter placement on 06/17/2021 and fluid was positive for metastatic adenocarcinoma. He was evaluated in the emergency room vital examination on presentation revealed a temperature of 97.9 pulse 118 respiration 22 blood pressure 129/78 pulse ox 95% on 3 L nasal cannula Laboratory data reveals a white blood count of 14.8 hemoglobin 8.6 platelet count 349 sodium 134 potassium 3.1 chloride 99 CO2 34 BUN 12 creatinine 0.47 Testing in the emergency room revealed chest x-ray done in the emergency room revealed evidence of congestive heart failure with pleural effusions, fluid increased on the left side compared to old exam Patient was admitted to medical floor for further evaluation and treatment cardiology and pulmonary consultation were requested Past medical history history of hypertension, hyperlipidemia, diabetes mellitus, obstructive sleep apnea utilizing CPAP osteoarthritis with multiple orthopedic surgeries, nonsmoker. The patient also has a history of esophageal cancer with previous stent placed in April 2021. 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 On 07/29/2021 patient's alert and oriented 3. Patient underwent arthrocentesis the same on the left side per Dr. Ling. Patient reports significant improvement with pain and breathing. Talks about possible feeding tube per patient and . At this time patient denies chest pain. Patient denies nausea vomiting or diarrhea. Patient denies any urinary burning or frequency. On 07/30/2021 patient was seen and examined on the medical floor, he is alert and oriented 3 in no apparent distress, he is complaining of shortness of breat h with any activity he is complaining of bilateral lower extremity swelling, pain is better controlled at this time, there is no fever or chills no headache or dizziness no chest pain no nausea or vomiting no abdominal pain no diarrhea and no urinary symptoms. Patient was seen by Dr. oCle this morning, he is scheduled for PEG tube feeding placement on Sunday, patient had multiple questions regarding the pros and cons of initiating tube feeding, this was discussed with him in details. On 07/31/2021 patient's alert and oriented 3. Patient having some increased shortness of breath chest x-ray has been ordered per pulmonary to assess if patient needs fluid draining from lungs. Patient is tentatively scheduled for PEG tube placement tomorrow per surgical services. At this time patient denies chest pain. Patient denies nausea vomiting or diarrhea. Patient denies any urinary burning or frequency On 08/01/2021 patient was seen and examined on the medical floor he is alert and oriented 3 in no apparent distress, hemoglobin was down to 6.8 this morning 1 unit of red blood cell transfusion was ordered, PEG tube placement was put on hold at this time, otherwise patient denies any complaint his pain is well controlled. On 08/02/2021 patient was seen and examined on the medical floor he is alert and oriented 3 in no distress, hemoglobin is up to 8.8 today, patient is scheduled for PEG tube placement today, this time he denies any complaints. On 08/03/2021 patient was seen and examined on the medical floor he is alert and oriented 3 in no apparent distress he is complaining of generalized pain and complaining of episode of confusion otherwise there is no complaints PEG tube was placed, there is no fever or chills no headache or dizziness no chest pain no shortness of breath no cough no nausea or vomiting no abdominal pain no diarrhea and no urinary symptoms On 08/04/2021 patient was seen and examined on the medical floor he is alert and oriented in no apparent distress, he is having episodes of confusion and hallucination especially after taking pain medications, otherwise he denies any complaints at this time, patient has severe bilateral lower extremity edema, at this time plan to give IV albumin and continue with IV Lasix, also plan is to decrease dose of pain medications and increase dose of Zyprexa to 7.5 mg at bedtime will continue to monitor closely On 08/05/2021 patient was seen and examined on the medical floor, case was discussed with Dr. Herman, vitals medication and labs were reviewed, and daughter at the bedside, case discussed with them in detail and questions answered. At this time will give 1 more dose of IV albumin today and continue with IV Lasix, continue with Zyprexa, oncology are changing pain medications due to episodes of confusion and hallucination, will continue to follow closely Objective - Vital Signs Vital signs: Vital Signs Temp 97.9 F 08/05/21 04:34 Pulse 92 08/05/21 11:33 Resp 20 08/05/21 04:34 BP 122/64 08/05/21 04:34 Pulse Ox 95 08/05/21 00:35 FiO2 36 08/05/21 00:35 Intake & Output 08/04/21 08/05/21 08/05/21 18:59 06:59 18:59 Intake Total 240 Output Total 1000 600 Balance -1000 -360 Weight 123.5 kg Intake: Oral 240 Output: Urine 1000 600 Other: Voiding Method Indwelling Catheter Indwelling Catheter Indwelling Catheter - Exam In general patient is alert and oriented x 3 in no distress HEENT head normocephalic and atraumatic Neck is supple no JVD no goiter no lymphadenopathy no carotid bruit Chest examination reveals a scattered bilateral crackles no wheezing Cardiac exam reveals regular heart sounds S1 and S2 no gallops no murmurs Abdomen is soft nontender no organomegaly with normal bowel sounds Extremity exam reveals no edema no cyanosis or clubbing Neurological examination reveals no gross focal deficits - Labs CBC & Chem 7: 08/04/21 07:03 08/05/21 06:40 Labs: Abnormal Lab Results - Last 24 Hours (Table) 08/05/21 Range/Units 06:57 POC Glucose (mg/dL) 112 H (70-110) mg/dL Assessment and Plan Plan: Esophageal cancer with metastatic disease Acute on chronic hypoxic respiratory failure, due to bilateral pleural effusions, patient also has congestion on chest x-ray, echocardiogram ordered and cardiology consultation requested to rule out congestive heart failure Recurrent right sided pleural effusion with recent Pleurx catheter placement one month ago Underlying history of hypertension Underlying history of diabetes mellitus type 2 Underlying history of hyperlipidemia Underlying history of obstructive sleep apnea maintained on CPAP Chronic pain related to esophageal cancer maintained on narcotics for pain management Underlying history of COPD At this time patient is admitted to medical floor Home medications reviewed and reordered Pulmonary and cardiology consultation was requested Status post thoracentesis on 07/29/2021 Tentative plans for PEG tube placement 08/01/2021 For DVT prophylaxis we will use Lovenox For GI prophylaxis continue Protonix Will follow closely
--- NOTE | 2021-08-05 13:37 | P.PN ---
Subjective Progress Note Date: 08/05/21 Left pleural effusion, shortness of breath This is a very pleasant 70-year-old male patient with a history of hypertension, hyperlipidemia, diabetes mellitus, obstructive sleep apnea utilizing CPAP osteoa rthritis with multiple orthopedic surgeries, nonsmoker. The patient also has a history of esophageal cancer with previous stent placed in April 2021. 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 Most recently he had a right-sided Pleurx catheter placement on 06/17/2021 and fluid was positive for metastatic adenocarcinoma. He is currently on Keytruda. He had been having decreased amounts of pleural fluid that he had been draining at home. Less than 25-50 mL now. He presented here to the emergency room yesterday with complaints of increasing shortness of breath and is now found to have a large left-sided pleural effusion. Ultrasound of the left chest reveals a 12.5 cm pocket. I count 14.8. Hemoglobin 8.6. Platelets 349. INR 1.2. Sodium 134. Potassium 3.1. BUN 12. Creatinine 0.47. AST 20. ALT 10. Blood glucose 153. He is seen today in consultation in the emergency department. He's currently resting fairly comfortable on the stretcher. Awake and alert in no acute distress. He is maintaining O2 saturations in the 90s on 2 L/m per nasal cannula. He has 0.9% normal saline at 130 ML's per hour. He is dyspneic with exertion. He also states he is quite fatigued and weak today. The patient was seen in follow-up on 07/29/2021. He is currently sitting up at the bedside. Awake and alert in no acute distress. He is maintaining O2 saturations in the mid 90s on 4 L/m per nasal cannula. He's been afebrile. Hemodynamically stable. Chest x-ray had revealed bilateral pleural effusions left greater than right. He has a right-sided Pleurx catheter in place. He did undergo a left-sided thoracentesis today with 1.5 L of bloody fluid returned. Fluid analysis and cytology are pending. Follow-up chest x-ray revealed no evidence of pneumothorax. Blood culture reveals no growth. Urine culture pending. White count 7.5. Hemoglobin 8.0. Platelet count 265,000. Sodium 140. Potassium 3.0. BUN 10. Creatinine 0.5. Glucose 112. He remains on Symbicort, DuoNeb inhalations, antibiotics in the form of Levaquin. Lovenox for DVT prophylaxis. The patient is seen today 07/30/2021 in follow-up on the regular medical floor. He sitting up in bed. Awake and alert in no acute distress. Maintaining good O2 saturations in the 90s on room air. Slightly tachycardic. Afebrile. He did undergo a left-sided thoracentesis yesterday. Cytology pending. Fluid analysis was exudate with a total protein of 2.6 and LDH of 628. Grossly bloody. Cultures pending. Urine culture revealed no growth. Blood cultures reveal no growth. White count 4.4. Hemoglobin 7.2. Platelets 227. Glucose 151. He remains on DuoNeb inhalations, Symbicort, IV diuretics. He is on antibiotics in the form of Levaquin. The patient is seen today 07/31/2021 follow-up on the regular medical floor. He is awake and alert in no acute distress. He is resting in bed. He has ongoing loose cough, shortness of breath with exertion. Maintaining O2 saturations in the 90s on 4 L/m per nasal cannula. He is afebrile. Hemodynamically stable. Chest x-ray continues to show bilateral effusions left greater than right. Right-sided Pleurx catheter in place and drained today with only a small amount of fluid removed. Pleural fluid cultures pending and recent left-sided thorace ntesis. White count 4.2. Hemoglobin 7.6. Platelets 2:30. Sodium 142. Potassium 3.1. BUN 9. Creatinine 0.6. Glucose 121. He is continued on IV Lasix 20 mg every 8 hours, DuoNeb inhalations, Symbicort, antibiotics in the form of Levaquin. Lovenox for DVT prophylaxis. 08/01/2021, the patient is essentially the same. Output from the right-sided Pleurx catheter for minimal and the patient is postop thoracentesis on the left and a fluid cytology is pending from the left. The patient was supposed to undergo a PEG tube insertion today and discussed canceled and postponedand rescheduled as the patient's hemoglobin came down to 6.8 and the patient will be receiving unit of packed RBC. noted the patient is chronically anemic. The hemoglobin has been gradually droppingwithout any signs of an acute GI bleed.the patient as mentioned is going to receive units of packed RBC. The patient has no signs of any significant respiratory distress. The patient is known to have obstructive sleep apnea and the patient has a CPAP machine at the bedside which she is using on a regular basis.no significant respiratory distress. The most recent chest x-ray from yesterday showed CHF with some pleural effusions bilaterally and overall appearance of is stable. The patient has small effusions bilaterally. 08/02/2021, the patient remains a bit anxious. No significant worsening in his breathing. The patient is currently on oxygen at 4 L. His resting comfortably. He is still awaiting his PEG tube insertion. He received a unit of packed RBC yesterday and the hemoglobin stable at 8.8. The white cell count is down to 1.7. The potassium level is at 3.6 and the patient is a low potassium yesterday of 3.0 which is replaced as the patient is being diuresed with IV Lasix. He still has hypoproteinemia and hypoalbuminemia and the patient has third spacing edema lower extremity is bilaterally. Meanwhile, the patient has remained nothing by mouth. The pleural fluid analysis/cytology from the left is still pending. Rule out underlying malignancy. 08/03/2021, I'm seeing this patient for a follow-up. He did have some hallucinations overnight. This morning, he seems to be more appropriate. Underwent a PEG tube insertion yesterday and the procedure was successful and PEG tube feeding is to follow today. Meanwhile, the patient has a right-sided Pleurx catheter. The left-sided thoracentesis was completed and the fluid unfortunately do not to be positive for malignancy this is with adenocarcinoma by esophageal primary. The patient otherwise is doing well on oxygen and he is currently on 4 L with a pulse ox of 90% and it goes up to 98%. His blood work from today is still pending. There was a concern of hypokalemia as the patient's is losing potassium as being diuresed for extensive fluid overload. His albumin is also low. He is currently on Lasix and he is on 20 mg every 8 hours. He still has edema in lower extremity is bilaterally. His potassium is being replaced accordingly. The patient is on 40 mg of Lovenox for DVT prophylaxis. He is on Levaquin as an empiric antibiotic coverage. He remains on Symbicort, DuoNeb nebulized treatments around the clock. Family is at the bedside. 08/04/2021, patient is being seen for a follow-up. The patient was started on enteral feeding for nutritional support. Nevertheless, on today's evaluation, the patient was found to be confused and he was also found to be slightly restless and agitated andhe was having some hallucinations. No worsening his respiratory status. The patient's white cell count of 3.0 with hemoglobin 8.1 and a platelet count of 536. Sodium is at 138, based on all this,a CAT scan of the brain was done that showed no acute abnormalities. No evidence of any [employer] metastases. CAT scan of the chest abdomen and pelvis is also to be repeated as requested by hematology oncology.hematology oncology. Meanwhile, the patient is on 4 L of O2 nasal cannula. Currently around 94%.he has been started on enteral feeding for nutritional support. He remains on Lasix IV 20 mg every 8 hours. He is also on Lovenox 40 mg subcu for DVT prophylaxis. He has adequate pain control and the patient is receiving fentanyl patch for pain control. 08/05/2021, seeing the patient for a follow-up. The patient is still weak and lethargic and on and off confused and hallucinating. The patient was started on enteral feeding for nutritional support and the patient is currently on Glucerna at the rate of 50 mL an hour and the goal is at 70. I reviewed the CAT scan of the chest and the patient has residual left-sided pleural effusion which is somewhat loculated. No significant pleural effusion collecting on the right. The patient is still on Lasix. The patient was given IV albumin to facilitate his diuresis. He was taken Lasix 20 mg IV every 8 hours. The patient is otherwise doing well. The patient has no specific complaints otherwise for now. The patient has a white cell count of 3 with a hemoglobin of 8.1 and platelet count of 536 and these are labs from yesterday. Potassium level was at 3.5 being replaced. Objective - Vital Signs Vital signs: Vital Signs Temp 97.8 F 08/05/21 11:23 Pulse 92 08/05/21 11:33 Resp 17 08/05/21 11:23 BP 114/73 08/05/21 11:23 Pulse Ox 96 08/05/21 11:23 FiO2 36 08/05/21 00:35 Intake & Output 08/04/21 08/05/21 08/05/21 18:59 06:59 18:59 Intake Total 240 Output Total 1000 600 Balance -1000 -360 Weight 123.5 kg Intake: Oral 240 Output: Urine 1000 600 Other: Voiding Method Indwelling Catheter Indwelling Catheter Indwelling Catheter - Exam GENERAL EXAM: Alert, 70-year-old gentleman, on 4 L nasal cannula, fairly comfortable in no apparent distress. HEAD: Normocephalic. EYES: Normal reaction of pupils, equal size. NOSE: Clear with pink turbinates. THROAT: No erythema or exudates. NECK: No masses, no JVD. CHEST: No chest wall deformity. Right-sided Mediport in place. Right-sided Pleurx catheter in place. LUNGS: Equal air entry with bibasilar crackles. Diminished in the left lung base. CVS: S1 and S2 normal with no audible murmur, regular rhythm. ABDOMEN: No hepatosplenomegaly, normal bowel sounds, no guarding or rigidity. The PEG tube site is dry clean and intact SPINE: No scoliosis or deformity SKIN: No rashes CENTRAL NERVOUS SYSTEM: No focal deficits, tone is normal in all 4 extremities. EXTREMITIES: There is no peripheral edema. No clubbing, no cyanosis. Peripheral pulses are intact. - Labs CBC & Chem 7: 08/04/21 07:03 08/05/21 06:40 Labs: Abnormal Lab Results - Last 24 Hours (Table) 08/05/21 Range/Units 06:57 POC Glucose (mg/dL) 112 H (70-110) mg/dL Assessment and Plan Plan: Acute on chronic hypoxic respiratory failure secondary to a moderate size left pleural effusion secondary to metastatic adenocarcinoma of the esophagus. Status post left-sided thoracentesis with 1.5 L of bloody fluid returned on 07/29/2021. Unfortunately, the fluid cytology was also positive and the patient has bilateral malignant pleural effusions consistent with metastatic adenocarcinoma. Currently on 4 L of oxygen by nasal cannula. The repeat CAT scan of the chest showed some residual pleural fluid on the left which has not affected his patient's respirator status. Going going to monitor the left-sided pleural effusion for now. Note that the left-sided pleural effusion also malignant. The right-sided pleural effusion is minimal at this point in time. Metastatic adenocarcinoma of the esophagus, post systemic chemotherapy, currently on Keytruda and 5-FU. Recurrent right-sided pleural effusion, status post Pleurx catheter placement on 06/17/2021 and attempted to drain 07/31/2021 with minimal output. malignant left-sided pleural effusion with some residual loculated fluid , please refer to the CAT scan of the chest delirium, CAT scan of the brain is negative. No focal neurological deficits for now. No significant agitation. Chronic dysphagia, The patient completed a PEG tube insertion and enteral feeding was started History of COPD Diabetes mellitus, type II Hypertension Hyperlipidemia Osteoarthritis Obstructive sleep apnea on CPAP History of anxiety chronic anemia, multifactorial, no evidence of any acute GI bleed, received a unit of packed RBC yesterday and the patient's hemoglobin is improved Hypoproteinemia and hypoalbuminemia Extensive lower extremity edema and the patient started on IV Lasix for third spacing Hypokalemia secondary to diuresis Leukopenia probably related to 5-FU/chemotherapy, Plan The patient is on and off ileus and this is probably related to the narcotic medication that she is receiving. No agitation. CAT scan of the brain showed no evidence of any metastases. CAT scan of the brain was negative for metastases CAT scan of the chest abdomen and pelvis was requested by hematology oncology and we'll review the results once available Continue enteral feeding for nutritional support and the patient was started on Glucerna. Continue Lasix Monitor electrolytes Prognosis remains extremely poor due to metastatic carcinoma of the esophagus Prognosis poor and will continue to follow.
[2021-08-05] MEDS: HYDROmorphone 2 MG TAB PO PRN ×2 (14:32→19:26)
[2021-08-05 14:34] VITALS: BMI 34.0
[2021-08-05 17:06] LABS: Glucose,Whole Blood 152 mg/dL (70-110)
[2021-08-05 19:53] LABS: Glucose,Whole Blood 141 mg/dL (70-110)
[2021-08-05] MEDS: ATORVASTATIN 10 MG TAB PO SCH (22:45)
[2021-08-05] MEDS: EZETIMIBE 10 MG TAB PO SCH (22:45)
[2021-08-05] MEDS: IPRATROPIUM-ALBUTEROL 3 ML NEB INHALATION PRN (23:49)
[2021-08-06] MEDS: HYDROmorphone 2 MG TAB PO PRN ×3 (00:29→20:49)
[2021-08-06] MEDS: FUROSEMIDE 10 MG/ML 2 ML VIAL IV SCH ×3 (00:29→17:43)
[2021-08-06] MEDS: MAG HYDROX/AL HYDROX/SIMETH 30 ML, diphenhydrAMINE ELIXIR 75 MG, LIDOCAINE VISCOUS 2% 3... PO SCH ×18 (00:30→20:47)
[2021-08-06] MEDS: SUCRALFATE 1 GM TAB PO SCH ×4 (00:30→17:43)
[2021-08-06] MEDS: IPRATROPIUM-ALBUTEROL 3 ML NEB INHALATION PRN (03:24)
[2021-08-06] MEDS: guaiFENesin-Coden 100-10MG/5ML 10 ML CUP PO SCH ×4 (04:11→20:30)
[2021-08-06] MEDS: ARTIFICIAL TEARS-HYPROMELLOSE DROPS 15 ML BTL BOTH EYES SCH ×2 (05:21→17:44)
[2021-08-06] MEDS: glipiZIDE 5 MG TAB PO SCH ×2 (05:21→17:43)
[2021-08-06] MEDS: FLUTICASONE 50MCG/SPRAY NASAL 16GM EA NOSTRIL SCH ×2 (05:21→17:44)
[2021-08-06] MEDS: ALPRAZolam 0.25 MG TAB PO SCH ×3 (05:21→17:43)
[2021-08-06] MEDS: PANTOPRAZOLE 40 MG TABLET PO SCH ×2 (05:22→17:43)
[2021-08-06] MEDS: METOPROLOL SUCCINATE (ER) 50 MG TAB.ER.24H PO SCH ×2 (05:22→17:43)
[2021-08-06] MEDS: LORATADINE 10 MG TAB PO SCH (05:22)
[2021-08-06 07:18] LABS: Glucose,Whole Blood 126 mg/dL (70-110)
[2021-08-06] MEDS: SYMBICORT 80-4.5 MCG INHALER INHALATION SCH ×2 (07:28→20:03)
[2021-08-06] MEDS: IPRATROPIUM-ALBUTEROL 3 ML NEB INHALATION SCH ×4 (07:28→20:03)
[2021-08-06] MEDS: SENNOSIDES-DOCUSATE SODIUM 1 EACH TAB PO SCH (08:48)
[2021-08-06] MEDS: METOCLOPRAMIDE 10 MG TAB PO SCH ×2 (08:48→20:30)
[2021-08-06] MEDS: ENOXAPARIN 40 MG/0.4 ML SYRINGE SQ SCH (08:48)
[2021-08-06] MEDS: DICYCLOMINE 10 MG CAP PO SCH (08:48)
[2021-08-06] MEDS: OLANZapine 7.5 MG TAB PO SCH (08:49)
[2021-08-06 09:11] LABS: African American GFR (CKD) 128.1 (60.0-200.0); Albumin 2.2 g/dL (3.8-4.9); Albumin/Globulin Ratio 0.85 (1.60-3.17); Anion Gap 7.5 mmol/L (10.00-18.00); BUN/Creat Ratio 19.6 Ratio (12.00-20.00); Blood Urea Nitrogen 9.8 mg/dL (9.0-27.0); Calcium 8.2 mg/dL (8.7-10.3); Carbon Dioxide 32.5 mmol/L (20.0-27.5); Globulin 2.6 g/dL (1.6-3.3); Non-African American GFR(CKD) 110.6 (60.0-200.0); Potassium 3.6 mmol/L (3.5-5.5); Total Bilirubin 0.3 mg/dL (0.30-1.20); Total Protein 4.8 g/dL (6.2-8.2)
[2021-08-06 09:45] LABS: HGB 8.9 g/dL (13.0-17.0); MCH 26.5 pg (27.0-32.0); MCHC 29.7 g/dL (32.0-37.0); MCV 89.3 fL (80.0-97.0); NRBC Per 100 WBC 0.3 /100 WBCS (0.0-0.0); Platelet Count 746 X 10*3/uL (140-440); RBC 3.36 X 10*6/uL (4.40-5.60); RDW 18.2 % (11.5-14.5); WBC 6.72 X 10*3/uL (4.50-10.00)
[2021-08-06 10:31] LABS: Basophils # (M) 0 X 10*3/uL (0.00-0.10); Eosinophils # (M) 0.07 X 10*3/uL (0.04-0.35); Lymphocytes # (M) 0.54 X 10*3/uL (0.90-5.00); Monocytes # (M) 1.28 X 10*3/uL (0.20-1.00); Myelocytes % 4 % (0-0); Neutrophils % (M) 67 %; Promyelocytes # (M) 0.07 k/uL (0); Promyelocytes % 1 % (0-0)
[2021-08-06] MEDS: QUEtiapine 100 MG TAB PO SCH ×2 (11:08→20:30)
--- NOTE | 2021-08-06 11:31 | P.PN ---
Progress Note - Text Progress Note Date: 08/06/21 Patient's PEG tube site is clean. He is tolerating tube feeds. He'll continue receive supportive care.
--- NOTE | 2021-08-06 11:35 | P.PN ---
Subjective Progress Note Date: 08/06/21 Left pleural effusion, shortness of breath This is a very pleasant 70-year-old male patient with a history of hypertension, hyperlipidemia, diabetes mellitus, obstructive sleep apnea utilizing CPAP osteoa rthritis with multiple orthopedic surgeries, nonsmoker. The patient also has a history of esophageal cancer with previous stent placed in April 2021. 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 Most recently he had a right-sided Pleurx catheter placement on 06/17/2021 and fluid was positive for metastatic adenocarcinoma. He is currently on Keytruda. He had been having decreased amounts of pleural fluid that he had been draining at home. Less than 25-50 mL now. He presented here to the emergency room yesterday with complaints of increasing shortness of breath and is now found to have a large left-sided pleural effusion. Ultrasound of the left chest reveals a 12.5 cm pocket. I count 14.8. Hemoglobin 8.6. Platelets 349. INR 1.2. Sodium 134. Potassium 3.1. BUN 12. Creatinine 0.47. AST 20. ALT 10. Blood glucose 153. He is seen today in consultation in the emergency department. He's currently resting fairly comfortable on the stretcher. Awake and alert in no acute distress. He is maintaining O2 saturations in the 90s on 2 L/m per nasal cannula. He has 0.9% normal saline at 130 ML's per hour. He is dyspneic with exertion. He also states he is quite fatigued and weak today. The patient was seen in follow-up on 07/29/2021. He is currently sitting up at the bedside. Awake and alert in no acute distress. He is maintaining O2 saturations in the mid 90s on 4 L/m per nasal cannula. He's been afebrile. Hemodynamically stable. Chest x-ray had revealed bilateral pleural effusions left greater than right. He has a right-sided Pleurx catheter in place. He did undergo a left-sided thoracentesis today with 1.5 L of bloody fluid returned. Fluid analysis and cytology are pending. Follow-up chest x-ray revealed no evidence of pneumothorax. Blood culture reveals no growth. Urine culture pending. White count 7.5. Hemoglobin 8.0. Platelet count 265,000. Sodium 140. Potassium 3.0. BUN 10. Creatinine 0.5. Glucose 112. He remains on Symbicort, DuoNeb inhalations, antibiotics in the form of Levaquin. Lovenox for DVT prophylaxis. The patient is seen today 07/30/2021 in follow-up on the regular medical floor. He sitting up in bed. Awake and alert in no acute distress. Maintaining good O2 saturations in the 90s on room air. Slightly tachycardic. Afebrile. He did undergo a left-sided thoracentesis yesterday. Cytology pending. Fluid analysis was exudate with a total protein of 2.6 and LDH of 628. Grossly bloody. Cultures pending. Urine culture revealed no growth. Blood cultures reveal no growth. White count 4.4. Hemoglobin 7.2. Platelets 227. Glucose 151. He remains on DuoNeb inhalations, Symbicort, IV diuretics. He is on antibiotics in the form of Levaquin. The patient is seen today 07/31/2021 follow-up on the regular medical floor. He is awake and alert in no acute distress. He is resting in bed. He has ongoing loose cough, shortness of breath with exertion. Maintaining O2 saturations in the 90s on 4 L/m per nasal cannula. He is afebrile. Hemodynamically stable. Chest x-ray continues to show bilateral effusions left greater than right. Right-sided Pleurx catheter in place and drained today with only a small amount of fluid removed. Pleural fluid cultures pending and recent left-sided thorace ntesis. White count 4.2. Hemoglobin 7.6. Platelets 2:30. Sodium 142. Potassium 3.1. BUN 9. Creatinine 0.6. Glucose 121. He is continued on IV Lasix 20 mg every 8 hours, DuoNeb inhalations, Symbicort, antibiotics in the form of Levaquin. Lovenox for DVT prophylaxis. 08/01/2021, the patient is essentially the same. Output from the right-sided Pleurx catheter for minimal and the patient is postop thoracentesis on the left and a fluid cytology is pending from the left. The patient was supposed to undergo a PEG tube insertion today and discussed canceled and postponedand rescheduled as the patient's hemoglobin came down to 6.8 and the patient will be receiving unit of packed RBC. noted the patient is chronically anemic. The hemoglobin has been gradually droppingwithout any signs of an acute GI bleed.the patient as mentioned is going to receive units of packed RBC. The patient has no signs of any significant respiratory distress. The patient is known to have obstructive sleep apnea and the patient has a CPAP machine at the bedside which she is using on a regular basis.no significant respiratory distress. The most recent chest x-ray from yesterday showed CHF with some pleural effusions bilaterally and overall appearance of is stable. The patient has small effusions bilaterally. 08/02/2021, the patient remains a bit anxious. No significant worsening in his breathing. The patient is currently on oxygen at 4 L. His resting comfortably. He is still awaiting his PEG tube insertion. He received a unit of packed RBC yesterday and the hemoglobin stable at 8.8. The white cell count is down to 1.7. The potassium level is at 3.6 and the patient is a low potassium yesterday of 3.0 which is replaced as the patient is being diuresed with IV Lasix. He still has hypoproteinemia and hypoalbuminemia and the patient has third spacing edema lower extremity is bilaterally. Meanwhile, the patient has remained nothing by mouth. The pleural fluid analysis/cytology from the left is still pending. Rule out underlying malignancy. 08/03/2021, I'm seeing this patient for a follow-up. He did have some hallucinations overnight. This morning, he seems to be more appropriate. Underwent a PEG tube insertion yesterday and the procedure was successful and PEG tube feeding is to follow today. Meanwhile, the patient has a right-sided Pleurx catheter. The left-sided thoracentesis was completed and the fluid unfortunately do not to be positive for malignancy this is with adenocarcinoma by esophageal primary. The patient otherwise is doing well on oxygen and he is currently on 4 L with a pulse ox of 90% and it goes up to 98%. His blood work from today is still pending. There was a concern of hypokalemia as the patient's is losing potassium as being diuresed for extensive fluid overload. His albumin is also low. He is currently on Lasix and he is on 20 mg every 8 hours. He still has edema in lower extremity is bilaterally. His potassium is being replaced accordingly. The patient is on 40 mg of Lovenox for DVT prophylaxis. He is on Levaquin as an empiric antibiotic coverage. He remains on Symbicort, DuoNeb nebulized treatments around the clock. Family is at the bedside. 08/04/2021, patient is being seen for a follow-up. The patient was started on enteral feeding for nutritional support. Nevertheless, on today's evaluation, the patient was found to be confused and he was also found to be slightly restless and agitated andhe was having some hallucinations. No worsening his respiratory status. The patient's white cell count of 3.0 with hemoglobin 8.1 and a platelet count of 536. Sodium is at 138, based on all this,a CAT scan of the brain was done that showed no acute abnormalities. No evidence of any [employer] metastases. CAT scan of the chest abdomen and pelvis is also to be repeated as requested by hematology oncology.hematology oncology. Meanwhile, the patient is on 4 L of O2 nasal cannula. Currently around 94%.he has been started on enteral feeding for nutritional support. He remains on Lasix IV 20 mg every 8 hours. He is also on Lovenox 40 mg subcu for DVT prophylaxis. He has adequate pain control and the patient is receiving fentanyl patch for pain control. 08/05/2021, seeing the patient for a follow-up. The patient is still weak and lethargic and on and off confused and hallucinating. The patient was started on enteral feeding for nutritional support and the patient is currently on Glucerna at the rate of 50 mL an hour and the goal is at 70. I reviewed the CAT scan of the chest and the patient has residual left-sided pleural effusion which is somewhat loculated. No significant pleural effusion collecting on the right. The patient is still on Lasix. The patient was given IV albumin to facilitate his diuresis. He was taken Lasix 20 mg IV every 8 hours. The patient is otherwise doing well. The patient has no specific complaints otherwise for now. The patient has a white cell count of 3 with a hemoglobin of 8.1 and platelet count of 536 and these are labs from yesterday. Potassium level was at 3.5 being replaced. 08/06/2021, the patient is still doing very poor. He is confused his delirious. At times agitated. Receiving enteral feeding for nutritional support. I time is having labored breathing is quite anxious. His white cell count at 6.7 with a hemoglobin 8.9, sodium is 138, BUN is at 10 with a creatinine of 0.5. Sodium level is at 138. The patient remains on the same medication receiving Dilaudid for pain control and Xanax for anxiety. Suggest addition of Seroquel. Objective - Vital Signs Vital signs: Vital Signs Temp 97.7 F 08/06/21 05:00 Pulse 76 08/06/21 11:26 Resp 24 08/06/21 05:00 BP 118/70 08/06/21 05:00 Pulse Ox 93 L 08/06/21 05:00 FiO2 36 08/05/21 00:35 Intake & Output 08/05/21 08/06/21 08/06/21 18:59 06:59 18:59 Output Total 650 Balance -650 Weight 123.5 kg 124 kg Output: Urine 650 Other: Voiding Method Indwelling Catheter Indwelling Catheter # Bowel Movements 1 - Exam GENERAL EXAM: Alert, 70-year-old gentleman, on 4 L nasal cannula, fairly comfo rtable in no apparent distress. HEAD: Normocephalic. EYES: Normal reaction of pupils, equal size. NOSE: Clear with pink turbinates. THROAT: No erythema or exudates. NECK: No masses, no JVD. CHEST: No chest wall deformity. Right-sided Mediport in place. Right-sided Pleurx catheter in place. LUNGS: Equal air entry with bibasilar crackles. Diminished in the left lung base. CVS: S1 and S2 normal with no audible murmur, regular rhythm. ABDOMEN: No hepatosplenomegaly, normal bowel sounds, no guarding or rigidity. The PEG tube site is dry clean and intact SPINE: No scoliosis or deformity SKIN: No rashes CENTRAL NERVOUS SYSTEM: No focal deficits, tone is normal in all 4 extremities. EXTREMITIES: There is no peripheral edema. No clubbing, no cyanosis. Peripheral pulses are intact. - Labs CBC & Chem 7: 08/06/21 06:28 08/06/21 06:28 Labs: Abnormal Lab Results - Last 24 Hours (Table) 08/05/21 08/05/21 08/06/21 Range/Units 17:04 19:47 06:28 RBC 3.36 L (4.40-5.60) X 10*6/uL Hgb 8.9 L (13.0-17.0) g/dL Hct 30.0 L (39.6-50.0) % MCH 26.5 L (27.0-32.0) pg MCHC 29.7 L (32.0-37.0) g/dL RDW 18.2 H (11.5-14.5) % Plt Count 746 H (140-440) X 10*3/uL Plt Count Comment INCREASED A MPV 9.0 L (9.5-12.2) fL Absolute Nucleated RBC 0.02 H (0.00-0.00) X 10*3/uL Myelocytes % 4 H (0-0) % Promyelocytes % 1 H (0-0) % Lymphocytes # (Manual) 0.54 L (0.90-5.00) X 10*3/uL Monocytes # (Manual) 1.28 H (0.20-1.00) X 10*3/uL NRBC/100 WBC Diff 0.3 H (0.0-0.0) /100 WBCS Carbon Dioxide (20.0-27.5) mmol/L Anion Gap (10.00-18.00) mmol/L Creatinine (0.6-1.5) mg/dL Glucose (70-110) mg/dL POC Glucose (mg/dL) 152 H 141 H (70-110) mg/dL Calcium (8.7-10.3) mg/dL Alkaline Phosphatase (41-126) U/L Total Protein (6.2-8.2) g/dL Albumin (3.8-4.9) g/dL Albumin/Globulin Ratio (1.60-3.17) g/dL 08/06/21 08/06/21 Range/Units 06:28 07:17 RBC (4.40-5.60) X 10*6/uL Hgb (13.0-17.0) g/dL Hct (39.6-50.0) % MCH (27.0-32.0) pg MCHC (32.0-37.0) g/dL RDW (11.5-14.5) % Plt Count (140-440) X 10*3/uL Plt Count Comment MPV (9.5-12.2) fL Absolute Nucleated RBC (0.00-0.00) X 10*3/uL Myelocytes % (0-0) % Promyelocytes % (0-0) % Lymphocytes # (Manual) (0.90-5.00) X 10*3/uL Monocytes # (Manual) (0.20-1.00) X 10*3/uL NRBC/100 WBC Diff (0.0-0.0) /100 WBCS Carbon Dioxide 32.5 H (20.0-27.5) mmol/L Anion Gap 7.50 L (10.00-18.00) mmol/L Creatinine 0.5 L (0.6-1.5) mg/dL Glucose 123 H (70-110) mg/dL POC Glucose (mg/dL) 126 H (70-110) mg/dL Calcium 8.2 L (8.7-10.3) mg/dL Alkaline Phosphatase 154 H (41-126) U/L Total Protein 4.8 L (6.2-8.2) g/dL Albumin 2.2 L (3.8-4.9) g/dL Albumin/Globulin Ratio 0.85 L (1.60-3.17) g/dL Assessment and Plan Plan: Acute on chronic hypoxic respiratory failure secondary to a moderate size left pleural effusion secondary to metastatic adenocarcinoma of the esophagus. Status post left-sided thoracentesis with 1.5 L of bloody fluid returned on 07/29/2021. Unfortunately, the fluid cytology was also positive and the patient has bilateral malignant pleural effusions consistent with metastatic adenocarcinoma. Currently on 4 L of oxygen by nasal cannula. The repeat CAT scan of the chest showed some residual pleural fluid on the left which has not affected his patient's respirator status. Going going to monitor the left-sided pleural effusion for now. Note that the left-sided pleural effusion also malignant. The right-sided pleural effusion is minimal at this point in time. Metastatic adenocarcinoma of the esophagus, post systemic chemotherapy, currently on Keytruda and 5-FU. Recurrent right-sided pleural effusion, status post Pleurx catheter placement on 06/17/2021 and attempted to drain 07/31/2021 with minimal output. malignant left-sided pleural effusion with some residual loculated fluid , please refer to the CAT scan of the chest delirium, CAT scan of the brain is negative. No focal neurological deficits for now. Condition is unchanged and the patient continues to be delirious probably related to prolonged hospitalization, medication and his underlying comorbidities. Chronic dysphagia, The patient completed a PEG tube insertion and enteral feeding was started and the patient is achieving adequate enteral feeding and he is going to reach his goals History of COPD Diabetes mellitus, type II Hypertension Hyperlipidemia Osteoarthritis Obstructive sleep apnea on CPAP History of anxiety chronic anemia, multifactorial, no evidence of any acute GI bleed, received a unit of packed RBC yesterday and the patient's hemoglobin is improved Hypoproteinemia and hypoalbuminemia Extensive lower extremity edema and the patient started on IV Lasix for third spacing Hypokalemia secondary to diuresis Leukopenia probably related to 5-FU/chemotherapy, Plan Start Seroquel 100 mg 1 by mouth twice a day for delirium and agitation CAT scan of the brain was negative for metastases Continue Glucerna for enteral feeding and nutritional support Continue IV Lasix Family is at the bedside Noted for thoracentesis at this point in time Prognosis remains extremely poor due to metastatic carcinoma of the esophagus Prognosis poor and will continue to follow.
[2021-08-06 11:50] LABS: Glucose,Whole Blood 162 mg/dL (70-110)
--- NOTE | 2021-08-06 12:28 | P.PN ---
Subjective Progress Note Date: 08/06/21 Xiang Pimentel, 70-year-old male patient who presented to [facility] emergency room with a chief complaint of worsening shortness of breath patient has a known history of esophageal cancer, he has chronic right sided pleural effusion, he had a right-sided Pleurx catheter placement on 06/17/2021 and fluid was positive for metastatic adenocarcinoma. He was evaluated in the emergency room vital examination on presentation revealed a temperature of 97.9 pulse 118 respiration 22 blood pressure 129/78 pulse ox 95% on 3 L nasal cannula Laboratory data reveals a white blood count of 14.8 hemoglobin 8.6 platelet count 349 sodium 134 potassium 3.1 chloride 99 CO2 34 BUN 12 creatinine 0.47 Testing in the emergency room revealed chest x-ray done in the emergency room revealed evidence of congestive heart failure with pleural effusions, fluid increased on the left side compared to old exam Patient was admitted to medical floor for further evaluation and treatment cardiology and pulmonary consultation were requested Past medical history history of hypertension, hyperlipidemia, diabetes mellitus, obstructive sleep apnea utilizing CPAP osteoarthritis with multiple orthopedic surgeries, nonsmoker. The patient also has a history of esophageal cancer with previous stent placed in April 2021. 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 On 07/29/2021 patient's alert and oriented 3. Patient underwent arthrocentesis the same on the left side per Dr. Ling. Patient reports significant improvement with pain and breathing. Talks about possible feeding tube per patient and . At this time patient denies chest pain. Patient denies nausea vomiting or diarrhea. Patient denies any urinary burning or frequency. On 07/30/2021 patient was seen and examined on the medical floor, he is alert and oriented 3 in no apparent distress, he is complaining of shortness of breat h with any activity he is complaining of bilateral lower extremity swelling, pain is better controlled at this time, there is no fever or chills no headache or dizziness no chest pain no nausea or vomiting no abdominal pain no diarrhea and no urinary symptoms. Patient was seen by Dr. Cole this morning, he is scheduled for PEG tube feeding placement on Sunday, patient had multiple questions regarding the pros and cons of initiating tube feeding, this was discussed with him in details. On 07/31/2021 patient's alert and oriented 3. Patient having some increased shortness of breath chest x-ray has been ordered per pulmonary to assess if patient needs fluid draining from lungs. Patient is tentatively scheduled for PEG tube placement tomorrow per surgical services. At this time patient denies chest pain. Patient denies nausea vomiting or diarrhea. Patient denies any urinary burning or frequency On 08/01/2021 patient was seen and examined on the medical floor he is alert and oriented 3 in no apparent distress, hemoglobin was down to 6.8 this morning 1 unit of red blood cell transfusion was ordered, PEG tube placement was put on hold at this time, otherwise patient denies any complaint his pain is well controlled. On 08/02/2021 patient was seen and examined on the medical floor he is alert and oriented 3 in no distress, hemoglobin is up to 8.8 today, patient is scheduled for PEG tube placement today, this time he denies any complaints. On 08/03/2021 patient was seen and examined on the medical floor he is alert and oriented 3 in no apparent distress he is complaining of generalized pain and complaining of episode of confusion otherwise there is no complaints PEG tube was placed, there is no fever or chills no headache or dizziness no chest pain no shortness of breath no cough no nausea or vomiting no abdominal pain no diarrhea and no urinary symptoms On 08/04/2021 patient was seen and examined on the medical floor he is alert and oriented in no apparent distress, he is having episodes of confusion and hallucination especially after taking pain medications, otherwise he denies any complaints at this time, patient has severe bilateral lower extremity edema, at this time plan to give IV albumin and continue with IV Lasix, also plan is to decrease dose of pain medications and increase dose of Zyprexa to 7.5 mg at bedtime will continue to monitor closely On 08/05/2021 patient was seen and examined on the medical floor, case was discussed with Dr. Herman, vitals medication and labs were reviewed, and daughter at the bedside, case discussed with them in detail and questions answered. At this time will give 1 more dose of IV albumin today and continue with IV Lasix, continue with Zyprexa, oncology are changing pain medications due to episodes of confusion and hallucination, will continue to follow closely. On 08/06/2021 patient was seen and examined on the medical floor, he is somnolent slightly confused in no apparent distress, there is no fever or chills no headache or dizziness no chest pain, he has some shortness of breath occas ional cough no nausea or vomiting no abdominal pain no diarrhea and no urinary symptoms, patient is denying any pain, he is having episodes of confusion and hallucination, he is maintained on Zyprexa, and Dr. Herman added Seroquel this morning, will attempt to decrease his pain medication and monitor closely. Objective - Vital Signs Vital signs: Vital Signs Temp 97.7 F 08/06/21 05:00 Pulse 77 08/06/21 11:41 Resp 24 08/06/21 05:00 BP 118/70 08/06/21 05:00 Pulse Ox 93 L 08/06/21 05:00 FiO2 36 08/05/21 00:35 Intake & Output 08/05/21 08/06/21 08/06/21 18:59 06:59 18:59 Output Total 650 Balance -650 Weight 123.5 kg 124 kg Output: Urine 650 Other: Voiding Method Indwelling Catheter Indwelling Catheter Indwelling Catheter # Bowel Movements 1 - Exam In general patient is alert and oriented x 3 in no distress HEENT head normocephalic and atraumatic Neck is supple no JVD no goiter no lymphadenopathy no carotid bruit Chest examination reveals a scattered bilateral crackles no wheezing Cardiac exam reveals regular heart sounds S1 and S2 no gallops no murmurs Abdomen is soft nontender no organomegaly with normal bowel sounds Extremity exam reveals no edema no cyanosis or clubbing Neurological examination reveals no gross focal deficits - Labs CBC & Chem 7: 08/06/21 06:28 08/06/21 06:28 Labs: Abnormal Lab Results - Last 24 Hours (Table) 08/05/21 08/05/21 08/06/21 Range/Units 17:04 19:47 06:28 RBC 3.36 L (4.40-5.60) X 10*6/uL Hgb 8.9 L (13.0-17.0) g/dL Hct 30.0 L (39.6-50.0) % MCH 26.5 L (27.0-32.0) pg MCHC 29.7 L (32.0-37.0) g/dL RDW 18.2 H (11.5-14.5) % Plt Count 746 H (140-440) X 10*3/uL Plt Count Comment INCREASED A MPV 9.0 L (9.5-12.2) fL Absolute Nucleated RBC 0.02 H (0.00-0.00) X 10*3/uL Myelocytes % 4 H (0-0) % Promyelocytes % 1 H (0-0) % Lymphocytes # (Manual) 0.54 L (0.90-5.00) X 10*3/uL Monocytes # (Manual) 1.28 H (0.20-1.00) X 10*3/uL NRBC/100 WBC Diff 0.3 H (0.0-0.0) /100 WBCS Carbon Dioxide (20.0-27.5) mmol/L Anion Gap (10.00-18.00) mmol/L Creatinine (0.6-1.5) mg/dL Glucose (70-110) mg/dL POC Glucose (mg/dL) 152 H 141 H (70-110) mg/dL Calcium (8.7-10.3) mg/dL Alkaline Phosphatase (41-126) U/L Total Protein (6.2-8.2) g/dL Albumin (3.8-4.9) g/dL Albumin/Globulin Ratio (1.60-3.17) g/dL 08/06/21 08/06/21 08/06/21 Range/Units 06:28 07:17 11:48 RBC (4.40-5.60) X 10*6/uL Hgb (13.0-17.0) g/dL Hct (39.6-50.0) % MCH (27.0-32.0) pg MCHC (32.0-37.0) g/dL RDW (11.5-14.5) % Plt Count (140-440) X 10*3/uL Plt Count Comment MPV (9.5-12.2) fL Absolute Nucleated RBC (0.00-0.00) X 10*3/uL Myelocytes % (0-0) % Promyelocytes % (0-0) % Lymphocytes # (Manual) (0.90-5.00) X 10*3/uL Monocytes # (Manual) (0.20-1.00) X 10*3/uL NRBC/100 WBC Diff (0.0-0.0) /100 WBCS Carbon Dioxide 32.5 H (20.0-27.5) mmol/L Anion Gap 7.50 L (10.00-18.00) mmol/L Creatinine 0.5 L (0.6-1.5) mg/dL Glucose 123 H (70-110) mg/dL POC Glucose (mg/dL) 126 H 162 H (70-110) mg/dL Calcium 8.2 L (8.7-10.3) mg/dL Alkaline Phosphatase 154 H (41-126) U/L Total Protein 4.8 L (6.2-8.2) g/dL Albumin 2.2 L (3.8-4.9) g/dL Albumin/Globulin Ratio 0.85 L (1.60-3.17) g/dL Assessment and Plan Plan: Esophageal cancer with metastatic disease Acute on chronic hypoxic respiratory failure, due to bilateral pleural effusions, patient also has congestion on chest x-ray, echocardiogram ordered and cardiology consultation requested to rule out congestive heart failure Recurrent right sided pleural effusion with recent Pleurx catheter placement one month ago Underlying history of hypertension Underlying history of diabetes mellitus type 2 Underlying history of hyperlipidemia Underlying history of obstructive sleep apnea maintained on CPAP Chronic pain related to esophageal cancer maintained on narcotics for pain management Underlying history of COPD At this time patient is admitted to medical floor Home medications reviewed and reordered Pulmonary and cardiology consultation was requested Status post thoracentesis on 07/29/2021 Tentative plans for PEG tube placement 08/01/2021 For DVT prophylaxis we will use Lovenox For GI prophylaxis continue Protonix Will follow closely
[2021-08-06 12:45] VITALS: BP 114/68; RESP 22; TEMP 98.2
[2021-08-06] MEDS ORDERED: DICYCLOMINE 10 MG CAP PO PRN (15:01)
[2021-08-06] MEDS: ALBUMIN HUMAN 25% 50 ML in EMPTY BAG 1 BAG IVPB SCH ×2 (15:12→16:23)
--- NOTE | 2021-08-06 15:12 | P.PN ---
Subjective Progress Note Date: 08/06/21 Principal diagnosis: Chest pain and SOB. Very confused and agitated. Pulling at lines and clothes. and family at bedside. Objective - Vital Signs Vital signs: Vital Signs Temp 98.2 F 08/06/21 12:44 Pulse 121 H 08/06/21 12:44 Resp 22 08/06/21 12:44 BP 114/68 08/06/21 12:44 Pulse Ox 92 L 08/06/21 12:44 FiO2 36 08/05/21 00:35 Intake & Output 08/05/21 08/06/21 08/06/21 18:59 06:59 18:59 Output Total 650 500 Balance -650 -500 Weight 123.5 kg 124 kg Output: Urine 650 500 Other: Voiding Method Indwelling Catheter Indwelling Catheter Indwelling Catheter # Bowel Movements 1 - Exam General: Naked, no acute distress. HEENT: Mucosa moist. Neck: Supraclavicular LN palpable in left side Lungs: No respiratory distress but keeps removing NC Heart: Regular rate. Abdomen: Soft Neuro: Confused, answers minimal questions with hand and head gestures. Keeps pulling at lines. Sitting up naked and not allowing anyone to cover him up. Psych: Confused Skin: No jaundice or obvious rash - Labs CBC & Chem 7: 08/06/21 06:28 08/06/21 06:28 Labs: Abnormal Lab Results - Last 24 Hours (Table) 08/05/21 08/05/21 08/06/21 Range/Units 17:04 19:47 06:28 RBC 3.36 L (4.40-5.60) X 10*6/uL Hgb 8.9 L (13.0-17.0) g/dL Hct 30.0 L (39.6-50.0) % MCH 26.5 L (27.0-32.0) pg MCHC 29.7 L (32.0-37.0) g/dL RDW 18.2 H (11.5-14.5) % Plt Count 746 H (140-440) X 10*3/uL Plt Count Comment INCREASED A MPV 9.0 L (9.5-12.2) fL Absolute Nucleated RBC 0.02 H (0.00-0.00) X 10*3/uL Myelocytes % 4 H (0-0) % Promyelocytes % 1 H (0-0) % Lymphocytes # (Manual) 0.54 L (0.90-5.00) X 10*3/uL Monocytes # (Manual) 1.28 H (0.20-1.00) X 10*3/uL NRBC/100 WBC Diff 0.3 H (0.0-0.0) /100 WBCS Carbon Dioxide (20.0-27.5) mmol/L Anion Gap (10.00-18.00) mmol/L Creatinine (0.6-1.5) mg/dL Glucose (70-110) mg/dL POC Glucose (mg/dL) 152 H 141 H (70-110) mg/dL Calcium (8.7-10.3) mg/dL Alkaline Phosphatase (41-126) U/L Total Protein (6.2-8.2) g/dL Albumin (3.8-4.9) g/dL Albumin/Globulin Ratio (1.60-3.17) g/dL 08/06/21 08/06/21 08/06/21 Range/Units 06:28 07:17 11:48 RBC (4.40-5.60) X 10*6/uL Hgb (13.0-17.0) g/dL Hct (39.6-50.0) % MCH (27.0-32.0) pg MCHC (32.0-37.0) g/dL RDW (11.5-14.5) % Plt Count (140-440) X 10*3/uL Plt Count Comment MPV (9.5-12.2) fL Absolute Nucleated RBC (0.00-0.00) X 10*3/uL Myelocytes % (0-0) % Promyelocytes % (0-0) % Lymphocytes # (Manual) (0.90-5.00) X 10*3/uL Monocytes # (Manual) (0.20-1.00) X 10*3/uL NRBC/100 WBC Diff (0.0-0.0) /100 WBCS Carbon Dioxide 32.5 H (20.0-27.5) mmol/L Anion Gap 7.50 L (10.00-18.00) mmol/L Creatinine 0.5 L (0.6-1.5) mg/dL Glucose 123 H (70-110) mg/dL POC Glucose (mg/dL) 126 H 162 H (70-110) mg/dL Calcium 8.2 L (8.7-10.3) mg/dL Alkaline Phosphatase 154 H (41-126) U/L Total Protein 4.8 L (6.2-8.2) g/dL Albumin 2.2 L (3.8-4.9) g/dL Albumin/Globulin Ratio 0.85 L (1.60-3.17) g/dL Assessment and Plan Assessment: 1. Metastatic esophageal cancer 2. Malignant pleural effusion 3. Encephalopathy 4. Esophageal spasms 5. Cancer related pain Plan: Mr. Pimentel is a very pleasant 70 yo male with metastatic esophageal cancer, on treatment with FOLFOX and Keytruda, here for CP and SOB. Found to have new left pleural effusion, s/p thoracentesis, cytology positive. Also s/p PEG placement due to esohpageal spasms. Restaging CT CAP with slight progression, otherwise, bulk of disease seems stable. Course complicated by worsening encephalopathy. Unclear etiology at this point. CT head negative. I suspect this is due to polypharmacy and medications he is on, including fentanyl patch, oral/IV narcotics, muscle relaxers, reglan/bentyl. Agree with holding fentanyl for now, and continuing with just dilaudid prn for pain. Will change bentyl to prn as well for esophageal spasms. Muscle relaxers discontinued. Consider adjusting/holding reglan if his condition does not improve with current changes, however will defer to GI and primary team. Will also need to ensure no underly ing infection such as UTI. he has indwelling whalen catheter. Will check urine culture. His cytopenia's are due to chemotherapy. Goals of care discussed with pt and , and he had mentioned to his prior to his encephalopathy worsening that he is not ready yet for comfort care. If his condition does not improve with medication adjustments, comfort care would be recommended. Discussed with pt, , family and nursing staff at bedside. All questions answered.
[2021-08-06 17:06] LABS: Glucose,Whole Blood 204 mg/dL (70-110)
[2021-08-06] MEDS: ATORVASTATIN 10 MG TAB PO SCH (20:30)
[2021-08-06] MEDS: EZETIMIBE 10 MG TAB PO SCH (20:31)
[2021-08-06 20:36] LABS: Glucose,Whole Blood 317 mg/dL (70-110)
[2021-08-07] MEDS: IPRATROPIUM-ALBUTEROL 3 ML NEB INHALATION PRN ×2 (00:34→03:51)
[2021-08-07] MEDS: MAG HYDROX/AL HYDROX/SIMETH 30 ML, diphenhydrAMINE ELIXIR 75 MG, LIDOCAINE VISCOUS 2% 3... PO SCH ×6 (01:10→05:18)
[2021-08-07] MEDS: FUROSEMIDE 10 MG/ML 2 ML VIAL IV SCH (01:10)
[2021-08-07] MEDS: SUCRALFATE 1 GM TAB PO SCH ×2 (01:12→05:50)
[2021-08-07] MEDS: HYDROmorphone 0.5 MG/0.5 ML SYRINGE IVP PRN (01:50)
[2021-08-07] MEDS ORDERED: EPINEPHrine 10 ML SYRINGE (0.1 MG/ML) ONE (04:02)
[2021-08-07 04:11] LABS: Glucose,Whole Blood 497 mg/dL (70-110)
[2021-08-07] MEDS ORDERED: LORazepam 1 MG/0.5 ML VIAL IV PRN (04:36)
[2021-08-07] MEDS ORDERED: ATROPINE OPHTH SOLN 1% 5ML BTL SUBLINGUAL PRN (04:36)
[2021-08-07] MEDS ORDERED: SCOPOLAMINE 1 MG/72 HR PATCH TRANSDERM SCH (04:45)
[2021-08-07] MEDS ORDERED: MORPHINE SULFATE (100 MG/2 ML) 100 MG in SODIUM CHLORIDE 0.9% 100 ML IV SCH (04:45)
--- NOTE | 2021-08-07 04:45 | P.EN ---
CODE BLUE note Activated at 4:02 AM. Arrived at the scene shortly after. Patient was undergoing CPR. ACLS protocol was performed. Asystole was initially noted on the monitor. Reviewed the chart and discussed the case with the RN. Epinephrine IV push 2 were administered with ROSC achieved at 4:09 AM with sinus rhythm. The patient was admitted to the hospital for failure to thrive with extensive PMH including terminal esophageal cancer. The case was discussed with the patient's , daughter, and son on the unit. They initially stated that if we are not able to revive him, that we should "let him go". Following ROCS, the case was again discussed in detail with the family who noted that they do not believe the patient wanted to be kept alive on life support. They requested that the patient be made comfort care and be extubated. Primary team was notified. ICU transfer was cancelled. Total time spent providing critical care for this patient: 35 minutes
[2021-08-07 05:04] VITALS: PULSE 80
[2021-08-07 05:08] LABS: ALT 13 U/L (4-49); AST 39 U/L (17-59); African American GFR (CKD) >90 (>60 ml/min/1.73 sqM); Albumin 2.4 g/dL (3.5-5.0); Albumin/Globulin Ratio 0.9; Alkaline Phosphatase 151 U/L (38-126); Anion Gap 6 mmol/L; Blood Urea Nitrogen 15 mg/dL (9-20); Carbon Dioxide 31 mmol/L (22-30); Chloride 98 mmol/L (98-107); Globulin 2.7 g/dL; Glucose 237 mg/dL (74-99); Non-African American GFR(CKD) >90 (>60 ml/min/1.73 sqM); Potassium 5.1 mmol/L (3.5-5.1); Sodium 135 mmol/L (137-145); Total Bilirubin 0.4 mg/dL (0.2-1.3); Total Protein 5.1 g/dL (6.3-8.2)
[2021-08-07 05:12] LABS: Anisocytosis Slight; HCT 33.4 % (39.0-53.0); HGB 9.6 gm/dL (13.0-17.5); Hypochromasia Marked; MCH 27.2 pg (25.0-35.0); MCHC 28.7 g/dL (31.0-37.0); MCV 94.8 fL (80.0-100.0); Mean Platelet Volume 7.2; Poikilocytosis Slight; RBC 3.52 m/uL (4.30-5.90); RDW 17.8 % (11.5-15.5)
[2021-08-07] MEDS: guaiFENesin-Coden 100-10MG/5ML 10 ML CUP PO SCH (05:18)
[2021-08-07] MEDS: ARTIFICIAL TEARS-HYPROMELLOSE DROPS 15 ML BTL BOTH EYES SCH (05:49)
[2021-08-07] MEDS: ALPRAZolam 0.25 MG TAB PO SCH (05:49)
[2021-08-07] MEDS: glipiZIDE 5 MG TAB PO SCH (05:49)
[2021-08-07] MEDS: FLUTICASONE 50MCG/SPRAY NASAL 16GM EA NOSTRIL SCH (05:49)
[2021-08-07] MEDS: LORATADINE 10 MG TAB PO SCH (05:50)
[2021-08-07] MEDS: PANTOPRAZOLE 40 MG TABLET PO SCH (05:50)
[2021-08-07] MEDS: METOPROLOL SUCCINATE (ER) 50 MG TAB.ER.24H PO SCH (05:50)
[2021-08-07 06:00] LABS: Band Neutrophils % 6 %; Eosinophils # (M) 0.14 k/uL (0-0.7); Lymphocytes # (M) 2.84 k/uL (1.0-4.8); Metamyelocytes # (M) 0.99 k/uL (0); Metamyelocytes % 7 %; Monocytes # (M) 1.42 k/uL (0-1.0); Myelocytes # (M) 0.43 k/uL (0); Myelocytes % 3 %; Neutrophils % (M) 54 %; Nucleated Red Blood Cells 1 /100 WBC (0-0); Total Cells Counted 200; WBC 14.2 k/uL (3.8-10.6)
[2021-08-07 06:09] LABS: Platelet Count 966 k/uL (150-450)
[2021-08-07 06:11] LABS: Anisocytosis (M) Present; Poikilocytosis (M) Present; Polychromasia Present
--- NOTE | 2021-08-07 13:10 | P.DS ---
Providers Date of admission: 07/27/21 22:31 Expected date of discharge: 08/07/21 Attending physician: Michell Soriano Consults: 07/27/21 22:31 Consult Physician Urgent Consulting Provider: Fito Ling Consult Reason/Comments: pleural effusions Do you want consulting provider notified?: Yes, Notify in am Consult Physician Urgent Consulting Provider: Maximo Umaña Consult Reason/Comments: established patient Do you want consulting provider notified?: Yes, Notify in am 07/29/21 10:25 Consult Physician Routine Consulting Provider: Jesse Cole Consult Reason/Comments: possible peg tube Do you want consulting provider notified?: Yes 08/04/21 11:17 Consult to Palliative Care Routine Consulting Provider: Camille Negrete Consult Reason/Comments: info for pt and family Do you want consulting provider notified?: Already Contacted Primary care physician: Michell Soriano [facility] Course: Diagnosis on discharge: Esophageal cancer with metastatic disease Acute on chronic hypoxic respiratory failure, due to bilateral pleural effusions, patient also has congestion on chest x-ray, echocardiogram ordered and cardiology consultation requested to rule out congestive heart failure Recurrent right sided pleural effusion with recent Pleurx catheter placement one month ago Underlying history of hypertension Underlying history of diabetes mellitus type 2 Underlying history of hyperlipidemia Underlying history of obstructive sleep apnea maintained on CPAP Chronic pain related to esophageal cancer maintained on narcotics for pain manag ement Underlying history of COPD Hospital course: Xiang Pimentel, 70-year-old male patient who presented to [facility] emergency room with a chief complaint of worsening shortness of breath patient has a known history of esophageal cancer, he has chronic right sided pleural effusion, he had a right-sided Pleurx catheter placement on 06/17/2021 and fluid was positive for metastatic adenocarcinoma. He was evaluated in the emergency room vital examination on presentation revealed a temperature of 97.9 pulse 118 respiration 22 blood pressure 129/78 pulse ox 95% on 3 L nasal cannula Laboratory data reveals a white blood count of 14.8 hemoglobin 8.6 platelet count 349 sodium 134 potassium 3.1 chloride 99 CO2 34 BUN 12 creatinine 0.47 Testing in the emergency room revealed chest x-ray done in the emergency room revealed evidence of congestive heart failure with pleural effusions, fluid increased on the left side compared to old exam Patient was admitted to medical floor for further evaluation and treatment cardiology and pulmonary consultation were requested Past medical history history of hypertension, hyperlipidemia, diabetes mellitus, obstructive sleep apnea utilizing CPAP osteoarthritis with multiple orthopedic surgeries, nonsmoker. The patient also has a history of esophageal cancer with previous stent placed in April 2021. 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 On 07/29/2021 patient's alert and oriented 3. Patient underwent arthrocentesis the same on the left side per Dr. Ling. Patient reports significant improvement with pain and breathing. Talks about possible feeding tube per patient and . At this time patient denies chest pain. Patient denies nausea vomiting or diarrhea. Patient denies any urinary burning or frequency. On 07/30/2021 patient was seen and examined on the medical floor, he is alert and oriented 3 in no apparent distress, he is complaining of shortness of breath with any activity he is complaining of bilateral lower extremity swelling, pain is better controlled at this time, there is no fever or chills no headache or dizziness no chest pain no nausea or vomiting no abdominal pain no diarrhea and no urinary symptoms. Patient was seen by Dr. Cole this morning, he is scheduled for PEG tube feeding placement on Sunday, patient had multiple questions regarding the pros and cons of initiating tube feeding, this was discussed with him in details. On 07/31/2021 patient's alert and oriented 3. Patient having some increased shortness of breath chest x-ray has been ordered per pulmonary to assess if patient needs fluid draining from lungs. Patient is tentatively scheduled for PEG tube placement tomorrow per surgical services. At this time patient denies chest pain. Patient denies nausea vomiting or diarrhea. Patient denies any urinary burning or frequency On 08/01/2021 patient was seen and examined on the medical floor he is alert and oriented 3 in no apparent distress, hemoglobin was down to 6.8 this morning 1 unit of red blood cell transfusion was ordered, PEG tube placement was put on hold at this time, otherwise patient denies any complaint his pain is well controlled. On 08/02/2021 patient was seen and examined on the medical floor he is alert and oriented 3 in no distress, hemoglobin is up to 8.8 today, patient is scheduled for PEG tube placement today, this time he denies any complaints. On 08/03/2021 patient was seen and examined on the medical floor he is alert and oriented 3 in no apparent distress he is complaining of generalized pain and complaining of episode of confusion otherwise there is no complaints PEG tube was placed, there is no fever or chills no headache or dizziness no chest pain no shortness of breath no cough no nausea or vomiting no abdominal pain no diarrhea and no urinary symptoms On 08/04/2021 patient was seen and examined on the medical floor he is alert and oriented in no apparent distress, he is having episodes of confusion and hallucination especially after taking pain medications, otherwise he denies any complaints at this time, patient has severe bilateral lower extremity edema, at this time plan to give IV albumin and continue with IV Lasix, also plan is to decrease dose of pain medications and increase dose of Zyprexa to 7.5 mg at bedtime will continue to monitor closely On 08/05/2021 patient was seen and examined on the medical floor, case was discussed with Dr. Herman, vitals medication and labs were reviewed, and daughter at the bedside, case discussed with them in detail and questions answered. At this time will give 1 more dose of IV albumin today and continue with IV Lasix, continue with Zyprexa, oncology are changing pain medications due to episodes of confusion and hallucination, will continue to follow closely. On 08/06/2021 patient was seen and examined on the medical floor, he is somnolent slightly confused in no apparent distress, there is no fever or chills no headache or dizziness no chest pain, he has some shortness of breath occasional cough no nausea or vomiting no abdominal pain no diarrhea and no urinary symptoms, patient is denying any pain, he is having episodes of confusion and hallucination, he is maintained on Zyprexa, and Dr. Herman added Seroquel this morning, will attempt to decrease his pain medication and monitor closely. On 08/07/2021 patient had a cardiac arrest at night, a code was conducted and patient was resuscitated, however, family decided to proceed with comfort care only, patient was extubated, and was started on comfort measures including morphine drip, he on 08/07/2021 Patient Condition at Discharge: Serious Plan - Discharge Summary Discharge Rx Participant: Yes New Discharge Prescriptions: No Action ALPRAZolam [Xanax] 0.25 mg PO TID@0600,1200,1800 Optive Eye Drops 1 drop BOTH EYES BID@0600,1800 Meloxicam [Mobic] 7.5 mg PO DAILY@1800 glipiZIDE [Glucotrol] 5 mg PO BID@0600,1800 Fluticasone Propion/Salmeterol [Advair 100-50 Diskus] 1 puff INHALATION RT- BID@0600,1800 Fluticasone Nasal Magnolia [Flonase Nasal Magnolia] 1 spray EA NOSTRIL BID@0600,1800 Ezetimibe [Zetia] 10 mg PO HS@2200 Simvastatin [Zocor] 20 mg PO HS@2200 Sucralfate 1 gm PO Q6H Kools Solution 5 ml PO Q4H fentaNYL 25MCG/HR PATCH [Duragesic 25MCG/HR] 1 patch TRANSDERM Q3D@0800 HYDROcodone/APAP [Vail Elixir 7.5-325Mg/15Ml] 15 ml PO Q6H INSULIN ASPART (NovoLOG) [NovoLOG (formulary)] See Protocol SQ ACHS Lidocaine-Prilocaine Cream [Emla Cream 2.5%/2.5%] 1 applic TOPICAL DIRECTED Metoprolol Succinate (ER) [Toprol XL] 50 mg PO BID@0600,1800 Pembrolizumab [Keytruda] 200 mg IV Q21D Folfax Regimen 1 dose IV Q14D Metoclopramide [Reglan] 10 mg PO BID Omeprazole [PriLOSEC] 20 mg PO BID@0600,1800 Albuterol Sulfate [Ventolin HFA] 2 puff INHALATION RT-Q4H PRN PRN Reason: Shortness Of Breath guaiFENesin-Coden 100-10MG/5ML [Robitussin AC] 10 ml PO Q6H Ondansetron [Zofran ODT] 8 mg PO Q12HR PRN PRN Reason: Nausea Dicyclomine [Bentyl] 10 mg PO DAILY@0800 diphenhydrAMINE [Benadryl] 25 mg PO Q6H Ibuprofen 200 mg PO Q4H Loratadine 10 mg PO DAILY@0600 Mesalamine [Canasa] 1,000 mg RECTAL HS PRN PRN Reason: Inflammation OLANZapine [ZyPREXA] 5 mg PO DAILY@1999 Discharge Medication List ALPRAZolam [Xanax] 0.25 mg PO TID@0600,1200,1800 01/28/16 [History] Optive Eye Drops 1 drop BOTH EYES BID@0600,1800 01/28/16 [History] Fluticasone Propion/Salmeterol [Advair 100-50 Diskus] 1 puff INHALATION RT- BID@0600,1800 10/01/19 [History] Meloxicam [Mobic] 7.5 mg PO DAILY@1800 10/01/19 [History] glipiZIDE [Glucotrol] 5 mg PO BID@0600,1800 10/01/19 [History] Albuterol Sulfate [Ventolin HFA] 2 puff INHALATION RT-Q4H PRN 02/01/21 [History] Ezetimibe [Zetia] 10 mg PO HS@2200 02/01/21 [History] Fluticasone Nasal Magnolia [Flonase Nasal Magnolia] 1 spray EA NOSTRIL BID@0600,1800 02/01/21 [History] Omeprazole [PriLOSEC] 20 mg PO BID@0600,1800 02/01/21 [History] Simvastatin [Zocor] 20 mg PO HS@2200 03/01/21 [History] Dicyclomine [Bentyl] 10 mg PO DAILY@0800 04/25/21 [History] Ondansetron [Zofran ODT] 8 mg PO Q12HR PRN 04/25/21 [History] Sucralfate 1 gm PO Q6H 04/25/21 [History] guaiFENesin-Coden 100-10MG/5ML [Robitussin AC] 10 ml PO Q6H 04/25/21 [History] Ibuprofen 200 mg PO Q4H 05/06/21 [History] diphenhydrAMINE [Benadryl] 25 mg PO Q6H 05/06/21 [History] Folfax Regimen 1 dose IV Q14D 06/15/21 [History] HYDROcodone/APAP [[place]ail Elixir 7.5-325Mg/15Ml] 15 ml PO Q6H 06/15/21 [History] INSULIN ASPART (NovoLOG) [NovoLOG (formulary)] See Protocol SQ ACHS 06/15/21 [History] Kools Solution 5 ml PO Q4H 06/15/21 [History] Lidocaine-Prilocaine Cream [Emla Cream 2.5%/2.5%] 1 applic TOPICAL DIRECTED 06/15/21 [History] Loratadine 10 mg PO DAILY@0600 06/15/21 [History] Mesalamine [Canasa] 1,000 mg RECTAL HS PRN 06/15/21 [History] Metoprolol Succinate (ER) [Toprol XL] 50 mg PO BID@0600,1800 06/15/21 [History] OLANZapine [ZyPREXA] 5 mg PO DAILY@199906/15/21 [History] Pembrolizumab [Keytruda] 200 mg IV Q21D 06/15/21 [History] fentaNYL 25MCG/HR PATCH [Duragesic 25MCG/HR] 1 patch TRANSDERM Q3D@0800 06/15/21 [History] Metoclopramide [Reglan] 10 mg PO BID 07/28/21 [History] Follow up Appointment(s)/Referral(s): Maximo Umaña MD [STAFF PHYSICIAN] - 08/18/21 1:00 pm (Appt with Dr. Umaña to discuss future treatment options) [facility], [NON-STAFF] - 1-2 Days [facility], [REFERRING] - Vincent Fagan MD [STAFF PHYSICIAN] - 1 Week Discharge/Stand Alone Forms: Who Do I Call?, Personal [employer] Discharge Disposition: - Preliminary Cause of Preliminary Cause of : Esophageal cancer
--- NOTE | 2021-08-09 08:18 | CDI ---
Documentation Clarification Form Date: 08/02/2021 11:07:00 AM From: Bhavana Beck CCS, CCDS Admit Date: 07/27/2021 10:31:00 PM Patient Name: Xiang Pimentel Visit Number: [id number] Discharge Date: 08/07/2021 09:18:00 AM ATTENTION: The Clinical Documentation Specialists (CDI) and [facility] Coding Staff appreciate your assistance in clarifying documentation. Please respond to the clarification below the line at the bottom and electronically sign. The CDI & [facility] Coding staff will review the response and follow-up if needed. Please note: Queries are made part of the Legal Health Record. If you have any questions, please contact the author of this message via ITS. Dr. Frantz Ybarra: Per the 07/28 History & Physical: Patient had congestion on CXR, ECHO ordered and Cardiology Consult requested to rule out Congestive Heart Failure. 07/28 Cardiology Consult: consulted for Pleural Effusion with worsening SOB. Impression: Left sided pleural effusion. Acute on chronic hypoxic respiratory failure. Metastatic adenocarcinoma of esophagus. History of recurrent right side pleural effusion sp Pleurx catheter 06/2021, COPD, DM II, Hypertension, Hyperlipidemia & BULMARO. Addendum: ECHO 04/2020: EF 55-60%, Mild LVH, Mild MR, Mild TR. Lexiscan stress test in 2019: Fixed defect involving the inferior segment was probably secondary to soft tissue attenuation, previous VA cannot be excluded. Additional information regarding the Type & Acuity of CHF is requested. History/Risk Factors per the 07/28 H/P: Esophageal Cancer, Chronic right side pleural effusion, Rt side Pleurx catheter place with positive fluid for metastatic adenocarcinoma. Hypertension, Hyperlipidemia, DM, BULMARO, Osteoarthritis, nonsmoker. Clinical Indicators: Presented to the ED on 07/27 with concern for recurrent pneumonia due to persistent coughing & worsening SOB. Pain with eating and drinking, had esophageal stent placed (esophageal cancer status post radiation, currently in chemotherapy. Concern for dehydration, failure to thrive & possible recurrent pneumonia. Admit with recurrent right pleural effusion, Esophageal cancer, Failure to thrive, Hypokalemia, Dysphagia, Dehydration. 07/27 VS: T 97.9, P 118, R 22 (sob), BP 129/78, PO 95 3Lnc, BMI: 35.1 07/27 LAB: PT 12.9, INR 1.2; Na 134, K 3.1, CO2 34, Creatinine 0.47, glucose 153, Calcium 7.5, Alk Phos 148, Total protein 4.9, Albumin 2.2. BNP not done. (06/26/21 BNP 204) 07/28 ECHO: Left ventricular EF est at 50-55%. Normal LV systolic function. Very large left & right pleural effusions. No previous ECHO. Treatment 07/27: O2 3Lnc, IV Na Chl 500 mls @ 1000 mls/hr q35M, IV Na Chl 1,000 mls @ 130 mls/hr q7H, INH Duoneb 6 ml x1, IV Morphine 2 - 4 mg x3. 07/28: INH Duoneb 3 ml TID/prn, INH Ventolin 2.5 mg q4H/prn, IV Lasix 20 mg q8H luis antonio, INH Symbicort 2 puffs BID In your professional opinion, can you please clarify the Acuity & Type of CHF if known? [ ] Acute Diastolic Heart Failure [ ] Chronic Diastolic Heart Failure [ ] Acute on Chronic Diastolic Heart Failure [ ] Heart Failure is ruled out [ ] Other, please specify [ ] Unable to determine (Template Last Revised: March 2020) Unable to determine pl contact admitting team GURJIT
== END 2021-08-07 09:18 | disposition expired | DRG 374 ==
LOC: EC 16:31 → 5NMEDONC 22:31
PROVIDERS: ADMIT Internal Medicine; ATTEND Internal Medicine
PROC: 0W9B3ZZ Drainage of Left Pleural Cavity, Percutaneous Approach (ICD-10-PCS; principal; 2021-07-29)
PROC: 30233N1 Transfusion of Nonautologous Red Blood Cells into Peripheral Vein, Percutaneous Approach (ICD-10-PCS; 2021-08-01)
PROC: 0DH63UZ Insertion of Feeding Device into Stomach, Percutaneous Approach (ICD-10-PCS; 2021-08-02)
PROC: 3E0G76Z Introduction of Nutritional Substance into Upper GI, Via Natural or Artificial Opening (ICD-10-PCS; 2021-08-02)
PROC: 5A12012 Performance of Cardiac Output, Single, Manual (ICD-10-PCS; 2021-08-07)
PROC: 3E033XZ Introduction of Vasopressor into Peripheral Vein, Percutaneous Approach (ICD-10-PCS; 2021-08-07)
DX: C15.9 Malignant neoplasm of esophagus, unspecified (principal); G92.8 Other toxic encephalopathy; J96.21 Acute and chronic respiratory failure with hypoxia; J18.9 Pneumonia, unspecified organism; J44.0 Chronic obstructive pulmonary disease with (acute) lower respiratory infection; D62 Acute posthemorrhagic anemia; C79.9 Secondary malignant neoplasm of unspecified site; E44.0 Moderate protein-calorie malnutrition; J98.11 Atelectasis; J91.0 Malignant pleural effusion; F05 Delirium due to known physiological condition; I50.9 Heart failure, unspecified; I11.0 Hypertensive heart disease with heart failure; F03.90 Unspecified dementia, unspecified severity, without behavioral disturbance, psychotic disturbance, mood disturbance, and anxiety; E11.9 Type 2 diabetes mellitus without complications; D63.0 Anemia in neoplastic disease; Z68.35 Body mass index [BMI] 35.0-35.9, adult; Z51.5 Encounter for palliative care; Z66 Do not resuscitate; I08.1 Rheumatic disorders of both mitral and tricuspid valves; F32.A Depression, unspecified; I46.9 Cardiac arrest, cause unspecified; D70.1 Agranulocytosis secondary to cancer chemotherapy; E77.8 Other disorders of glycoprotein metabolism; E88.09 Other disorders of plasma-protein metabolism, not elsewhere classified; R62.7 Adult failure to thrive; E86.0 Dehydration; E78.5 Hyperlipidemia, unspecified; M19.90 Unspecified osteoarthritis, unspecified site; K21.9 Gastro-esophageal reflux disease without esophagitis; G47.30 Sleep apnea, unspecified; K22.4 Dyskinesia of esophagus; Z96.653 Presence of artificial knee joint, bilateral; Z96.641 Presence of right artificial hip joint; F41.9 Anxiety disorder, unspecified; E87.6 Hypokalemia; G47.33 Obstructive sleep apnea (adult) (pediatric); I49.3 Ventricular premature depolarization; K59.00 Constipation, unspecified; G89.3 Neoplasm related pain (acute) (chronic); R00.0 Tachycardia, unspecified; T40.415A Adverse effect of fentanyl or fentanyl analogs, initial encounter; T40.695A Adverse effect of other narcotics, initial encounter; T48.205A Adverse effect of unspecified drugs acting on muscles, initial encounter; T45.0X5A Adverse effect of antiallergic and antiemetic drugs, initial encounter; Z96.89 Presence of other specified functional implants; Z92.3 Personal history of irradiation; Z87.01 Personal history of pneumonia (recurrent); Z79.1 Long term (current) use of non-steroidal anti-inflammatories (NSAID); Z79.84 Long term (current) use of oral hypoglycemic drugs; Z79.899 Other long term (current) drug therapy; Z79.4 Long term (current) use of insulin; Z79.891 Long term (current) use of opiate analgesic; Z88.0 Allergy status to penicillin; Z88.2 Allergy status to sulfonamides; Z79.51 Long term (current) use of inhaled steroids; Z98.890 Other specified postprocedural states; I25.2 Old myocardial infarction; Z88.1 Allergy status to other antibiotic agents; Z88.8 Allergy status to other drugs, medicaments and biological substances; Z92.21 Personal history of antineoplastic chemotherapy; Z82.49 Family history of ischemic heart disease and other diseases of the circulatory system; Z80.0 Family history of malignant neoplasm of digestive organs
CPT/HCPCS: 36415; 43246; 70450; 71045; 71046; 71260; 74177; 76604; 80053; 81001; 82306; 82607; 82728; 82746; 82945; 83540; 83550; 83605; 83615; 83735; 84132; 84157; 85025; 85027; 85610; 85730; 86850; 86900; 86901; 86920; 87040; 87070; 87086; 87102; 87116; 87205; 87206; 87252; 87496; 87498; 87502; 87529; 87634; 87798; 88108; 88305; 89050; 93005; 93308; 94640; 94667; 94760; 96361; 96374; 96375; 96376; 99285